=== PATIENT | female | born 1945 | race Caucasian/White ===

== ENCOUNTER 2019-08-22 11:52 | Outpatient (CLI) | payer MEDICARE, MEDICAID, SELFPAY ==
--- NOTE | 2019-08-22 | XR_ITS ---
WS: [id number] CHEST 2 VIEWS HISTORY: COUGH COMPARISON: 01/27/2019 Lungs: Hyperinflated lungs with changes of emphysema. Linear atelectasis in the RIGHT lower lung fiel d. Eventration of the RIGHT hemidiaphragm. Cardiac size: Mildly enlarged cardiac silhouette. Mediastinum/Aorta: Mild atherosclerosis aorta. Bones: Increase in thoracic kyphosis. Dorsal column stimulator electrodes and wires project over the mid thoracic spine. XR/XR chest 2V* [id number] IMPRESSION: 1. Chronic emphysema. 2. Subsegmental atelectasis RIGHT lower lobe. No pneumonia.
== END 2019-08-22 11:53 | disposition home or self-care (01) ==
LOC: RADOUTREAD 15:48
PROVIDERS: Family Provider Physician Assistant; PCP Physician Assistant; Visit Provider Physician Assistant
DX: J43.9 Emphysema, unspecified (principal); J98.11 Atelectasis; R05 Cough

== ENCOUNTER → 2019-09-30 14:59 | Outpatient (BNVA) | payer MEDICARE, MEDICAID, SELFPAY | PROVIDERS: PCP Physician Assistant; Visit Provider Anesthesiology | DX: G89.29 Other chronic pain (principal); M54.16 Radiculopathy, lumbar region; M79.651 Pain in right thigh; M79.652 Pain in left thigh; F17.220 Nicotine dependence, chewing tobacco, uncomplicated; Z79.891 Long term (current) use of opiate analgesic; Z71.6 Tobacco abuse counseling | CPT/HCPCS: 99214 ==

== ENCOUNTER → 2020-01-04 14:48 | Outpatient (BNVA) | payer MEDICARE, MEDICAID, SELFPAY | PROVIDERS: Family Provider Physician Assistant; PCP Physician Assistant; Visit Provider Nurse Practitioner | DX: M54.41 Lumbago with sciatica, right side (principal); M54.42 Lumbago with sciatica, left side; M54.16 Radiculopathy, lumbar region; F17.220 Nicotine dependence, chewing tobacco, uncomplicated; Z79.891 Long term (current) use of opiate analgesic | CPT/HCPCS: 99214 ==

== ENCOUNTER → 2020-01-18 14:20 | Outpatient (BNVA) | payer MEDICARE, MEDICAID, SELFPAY | PROVIDERS: Family Provider Physician Assistant; PCP Physician Assistant; Visit Provider Anesthesiology | DX: G89.29 Other chronic pain (principal); M54.16 Radiculopathy, lumbar region; M54.5 Low back pain; F17.220 Nicotine dependence, chewing tobacco, uncomplicated; Z79.891 Long term (current) use of opiate analgesic; Z71.6 Tobacco abuse counseling | CPT/HCPCS: 99214 ==

== ENCOUNTER 2020-02-23 12:37 | Outpatient (CLI) | payer MEDICARE, MEDICAID, SELFPAY ==
--- NOTE | 2020-02-23 12:45 | CT_ITS ---
WS: [id number] CT LUNG CANCER SCREENING DLP: 52.84 mGy.cm DIvol: 1.51 mGy CLINICAL INFORMATION SCREENING VISIT: Baseline COMPARISON: 07/14/2018 FINDINGS Diagnostic quality: Limited by body habitus. Comments: None. Lung Nodules: None. Lungs: Hyperexpanded lungs. Quality of examination No endobronchial lesions. Heart: Mild enlargement. Increased pericardial fat. Mild atherosclerosis platinum coronary arteries. Other findings: Marked enlargement of the pulmonary artery. Diameter of the pulmonary arteries 3.9 cm . Mild atherosclerosis aorta. Prior cholecystectomy. Dorsal column stimulator over the mid thoracic region. CT/CT lung screening [id number] IMPRESSION: LUNG-RADS: 1S-Negative with Significant Findings FOLLOW UP: 12 Month: Continue annual screening with LDCT 1. Dilated pulmonary artery consistent with pulmonary hypertension.
== END 2020-02-23 12:38 | disposition home or self-care (01) ==
LOC: RAD 12:44
PROVIDERS: PCP Physician Assistant; Visit Provider Physician Assistant
DX: Z12.2 Encounter for screening for malignant neoplasm of respiratory organs (principal); Z87.891 Personal history of nicotine dependence; I27.20 Pulmonary hypertension, unspecified
CPT/HCPCS: G0297

== ENCOUNTER 2020-03-19 16:12 | Inpatient (IN) | payer MEDICARE, MEDICAID, SELFPAY ==
[2020-03-19] VITALS (75 sets, daily range): BP systolic 85–164; BP diastolic 43–105; PULSE 46–66; RESP 11–104; TEMP 36.3–36.8; O2SAT 88–100; BMI 43.0
--- NOTE | 2020-03-19 16:18 | W.ED.OVERDOS ---
HPI - Overdose General: Chief Complaint: Overdose Stated Complaint: ACCIDENTAL OD Time Seen by Provider: 03/19/20 16:18 History of Present Illness: HPI Narrative: 74-year-old female well-known to me she had taken at least 4 if not potentially more hydrocodone earlier today because of pain in her legs she was having difficulty focusing was lethargic and EMS was called on their arrival to give her Narcan she became immediately awake and alert. On their arrival she had a decreased respiratory rate of around 8 and was very lethargic. She had a significant reversal as soon as the Narcan was given. She denies any pain now she denies any discomfort or shortness of breath. Has had multiple strokes in the past she is much more coherent than she has been at most of the times of seen her in the past as well. She denies any recent upper respiratory symptoms denies any dysuria urgency or frequency or abdominal pain. MD complaint: accidental overdose Onset (ago): hour(s) Timing confirmed by: caregiver Review of Systems Const: Denies: fever(s), chills, body aches, change in appetite, fatigue or malaise ENMT: Denies: throat pain, ear or mastoid pain, nasal discharge or nasal congestion Card: Denies: chest pain, edema, dyspnea on exertion or orthopnea Resp: Denies: dyspnea, productive cough or non-productive cough GI: Denies: abdominal pain, nausea, vomiting, hematemesis, coffee ground emesis, diarrhea, constipation, bloating, hematochezia or melena : Denies: flank pain, difficulty voiding, dysuria, urinary frequency or urinary urgency Skin/Breast: Denies: rash or pruritus PFSH ED PFSH: Medical History Carpal tunnel syndrome on both sides Chronic radicular low back pain COPD (chronic obstructive pulmonary disease) CVA (cerebral vascular accident) Depression with anxiety Diabetes Encounter for long-term use of opiate analgesic GERD (gastroesophageal reflux disease) History of CHF (congestive heart failure) History of GI bleed Hypertension Low back pain Opioid contract exists Smokeless tobacco use Surgical History H/O knee surgery History of knee replacement History of lumbar surgery Also history of spinal cord stimulator, currently not functioning History of shoulder surgery Family History Other CAD (coronary artery disease) Hypertension Stroke Denies family history of Anesthesia complication Bleeding disorder Social History Smoking and tobacco status: current every day smoker smokeless tobacco Alcohol intake: never Physical Exam Const: COMMON NORMALS: no acute distress GENERAL APPEARANCE: cooperative and comfortable ORIENTATION/CONSCIOUSNESS: Yes awake, Yes oriented to person, Yes oriented to place and Yes oriented to time HENMT: COMMON NORMALS: normocephalic, atraumatic and hearing grossly normal bilaterally HEAD & SCALP: normocephalic and atraumatic Eye: COMMON NORMALS: Equal, round and reactive pupils present, EOMs intact bilaterally, conjunctivae normal and no scleral icterus CONJUNCTIVA: Yes conjunctivae normal PUPIL: Yes Equal, round and reactive pupils present Neck/C-Spine: COMMON NORMALS: full ROM, no lymphadenopathy, supple and no JVD Lymph: LYMPHATIC: no lymphadenopathy noted and no lymphedema noted Resp: COMMON NORMALS: normal respiratory effort, No retractions, No use of accessory muscles and clear to auscultation bilaterally AUSCULTATION: clear to auscultation bilaterally Cardio: COMMON NORMALS: no JVD, regular rate, regular rhythm and No murmurs present (Cardio) RATE: regular rate RHYTHM: regular rhythm GI: COMMON NORMALS: Soft to palpation and No hepatosplenomegaly present AUSCULTATION: Yes normoactive bowel sounds PALPATION: Yes Soft to palpation, No Tenderness to palpation present (GI), No Guarding due to palpation present (GI) and Yes No hepatosplenomegaly present Extremity: COMMON NORMALS: normal to inspection, capillary refill normal, no clubbing, cyanosis or edema, no calf tenderness and no pedal edema Neuro: SENSORIUM/ORIENTATION: Yes oriented to person, Yes oriented to place and Yes oriented to time Skin: COMMON NORMALS: no rashes or lesions noted GENERAL SKIN EXAM: no rashes or lesions noted Course Vital Signs: Vital signs: Vital Signs Temperature 97.7 F 03/19/20 20:00 Pulse Rate 62 03/20/20 06:50 Respiratory Rate 18 03/20/20 06:50 Blood Pressure 140/56 03/20/20 06:50 Pulse Oximetry 94 03/20/20 06:50 MDM - Overdose MDM Narrative: Medical decision making narrative: On arrival patient is awake alert and oriented after receiving Narcan. While she was here she began to become sleepy but was not completely obtunded. Even after the Narcan seem to worn off she was still able to answer questions she was just somewhat groggy. Given were unsure of exactly how much she took or what she took I think we need to observe her here at least overnight in the ICU. She will also need a follow-up acetaminophen level discussed with Dr. Gunderson he is agreeable. Place her on observation in ICU. Lab Data: Labs: Lab Results 03/19/20 03/19/20 03/19/20 Range/Units 16:23 16:23 16:30 WBC 7.5 (4.0-10.0) 10^3/ uL RBC 5.34 H (4.1-5.3) 10^6/u L Hgb 14.1 (11.5-15.3) g/dL Hct 47.7 H (37.0-47.0) % MCV 89.3 (81-99) fL MCH 26.4 L (28.0-34.0) pg MCHC 29.6 L (30.0-36.0) g/dL RDW 15.3 H (12.1-15.1) % Plt Count 262 (130-400) 10^3/c mm MPV 10.0 (7.4-10.4) fL Neut % (Auto) 49.0 % Lymph % (Auto) 34.0 % [place] % (Auto) 11.0 % Eos % (Auto) 4.4 % Baso % (Auto) 0.9 % Neut # (Auto) 3.69 (1.8-7.7) 10^3/u L Lymph # (Auto) 2.6 (0.8-4.8) 10^3/u L [place] # (Auto) 0.8 (0.2-0.9) 10^3/u L Eos # (Auto) 0.3 (0.0-0.8) 10^3/u L Baso # (Auto) 0.1 (0.0-0.1) 10^3/u L Nucleated RBC % (a uto) 0 % Nucleated RBCs # 0.0 /100WBC Sodium 137 (136-145) mmol/L Potassium 4.0 (3.5-5.1) mmol/L Chloride 95 L (98-107) mmol/L Carbon Dioxide 33 H (22-29) mmol/L Anion Gap 13.0 (5-19) BUN 23 (8-23) mg/dL Creatinine 0.9 (0.5-0.9) mg/dL GFR Calculation Not Reportable Glucose 169 H (65-115) mg/dL POC Glucose (70-110) mg/dL Calculated Osmolal ity 285 (285-295) mOsm/k g Calcium 9.7 (8.5-10.5) mg/dL Total Bilirubin 0.6 (0.15-1.2) mg/dL AST 14 (0-32) U/L ALT 17 (0-33) U/L Alkaline Phosphata se 86 (35-105) IU/L Total Protein 7.2 (6.6-8.7) g/dL Albumin 4.0 (3.5-5.2) g/dL Globulin 3.2 (1.3-4.6) g/dL Urine Color Straw (Yellow) Urine Appearance Clear (CLEAR) Urine pH 5 (5-7) Ur Specific Gravit y 1.010 (1.005-1.030) Urine Protein Neg (Negative) Urine Glucose (UA) 4+ H (Normal) Urine Ketones Negative (Negative) Urine Blood Neg (Negative) Urine Nitrate Negative (Negative) Urine Bilirubin Neg (NEGATIVE) Urine Urobilinogen Norm (Negative) mg/dL Ur Leukocyte Pamela ase Negative (Negative) Salicylates < 0.3 L (3-10) mg/dL Urine Opiates Scre en (Negative) ng/mL Acetaminophen 7.8 L (10-30) ug/mL Ur Barbiturates Sc reen (Negative) ng/mL Ur Phencyclidine S crn (Negative) ng/mL Ur Amphetamines Sc reen (Negative) ng/mL U Benzodiazepines Scrn (Negative) ng/mL Urine Cocaine Scre en (Negative) ng/mL U Marijuana (THC) Screen (Negative) ng/mL Ethyl Alcohol < 10 (0-10) mg/dL 03/19/20 03/19/20 Range/Units 16:30 16:30 WBC (4.0-10.0) 10^3/ uL RBC (4.1-5.3) 10^6/u L Hgb (11.5-15.3) g/dL Hct (37.0-47.0) % MCV (81-99) fL MCH (28.0-34.0) pg MCHC (30.0-36.0) g/dL RDW (12.1-15.1) % Plt Count (130-400) 10^3/c mm MPV (7.4-10.4) fL Neut % (Auto) % Lymph % (Auto) % [place] % (Auto) % Eos % (Auto) % Baso % (Auto) % Neut # (Auto) (1.8-7.7) 10^3/u L Lymph # (Auto) (0.8-4.8) 10^3/u L [place] # (Auto) (0.2-0.9) 10^3/u L Eos # (Auto) (0.0-0.8) 10^3/u L Baso # (Auto) (0.0-0.1) 10^3/u L Nucleated RBC % (a uto) % Nucleated RBCs # /100WBC Sodium (136-145) mmol/L Potassium (3.5-5.1) mmol/L Chloride (98-107) mmol/L Carbon Dioxide (22-29) mmol/L Anion Gap (5-19) BUN (8-23) mg/dL Creatinine (0.5-0.9) mg/dL GFR Calculation Glucose (65-115) mg/dL POC Glucose 154 (70-110) mg/dL Calculated Osmolal ity (285-295) mOsm/k g Calcium (8.5-10.5) mg/dL Total Bilirubin (0.15-1.2) mg/dL AST (0-32) U/L ALT (0-33) U/L Alkaline Phosphata se (35-105) IU/L Total Protein (6.6-8.7) g/dL Albumin (3.5-5.2) g/dL Globulin (1.3-4.6) g/dL Urine Color (Yellow) Urine Appearance (CLEAR) Urine pH (5-7) Ur Specific Gravit y (1.005-1.030) Urine Protein (Negative) Urine Glucose (UA) (Normal) Urine Ketones (Negative) Urine Blood (Negative) Urine Nitrate (Negative) Urine Bilirubin (NEGATIVE) Urine Urobilinogen (Negative) mg/dL Ur Leukocyte Pamela ase (Negative) Salicylates (3-10) mg/dL Urine Opiates Scre en Positive H (Negative) ng/mL Acetaminophen (10-30) ug/mL Ur Barbiturates Sc reen Negative (Negative) ng/mL Ur Phencyclidine S crn Negative (Negative) ng/mL Ur Amphetamines Sc reen Negative (Negative) ng/mL U Benzodiazepines Scrn Negative (Negative) ng/mL Urine Cocaine Scre en Negative (Negative) ng/mL U Marijuana (THC) Screen Negative (Negative) ng/mL Ethyl Alcohol (0-10) mg/dL Discharge Plan Discharge Patient Disposition: Placed in Observation Admit Provider: John Rowe Clinical Impression: Opiate overdose, COPD (chronic obstructive pulmonary disease), History of cerebrovascular accident Condition: Serious Interventions: ED Discharge Assessment Last Done: 03/19/20 18:38 ED Charges Last Done: 03/19/20 18:38 Discharge Date/Time: 03/19/20 18:42 Coding Level of Care Code ED Certified Coatings Inspector for Chg Fwd Exam Comprehensive
--- NOTE | 2020-03-19 16:22 | XR_ITS ---
WS: [id number] EXAM: AP CHEST: PORTABLE UPRIGHT DATE OF EXAM: 03/19/2020, 1627 hours COMPARISON: Chest x-ray from 08/22/2019 HISTORY: Patient is 74 years old with hypoxia. FINDINGS: The cardiac silhouette is enlarged but similar. The mediastinal contours are unchanged. Calcified plaque in the aortic knob. The pulmonary vascularity is normal. Slight chronic lung changes seen. Lungs are clear consolidation. There is no effusion or pneumothorax. No acute bony abnormality is s een. Neurostimulator leads are seen overlying the spine. XR/XR chest 1V portable [id number] IMPRESSION: Enlarged cardiac silhouette appears similar. Pulmonary vascular congestion with out pulmonary edema. No consolidating infiltrate.
--- NOTE | 2020-03-19 16:24 | ECG_ITS ---
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 Measurements Intervals [place] Rate: 55 P: 104 [place]: 229 QRS: 1 QRSD: 120 T: 91 QT: 483 QTc: 463 Interpretive Statements SINUS BRADYCARDIA WITH FIRST DEGREE AV BLOCK MODERATE INTRAVENTRICULAR CONDUCTION DELAY [105+ ms QRS DURATION, 80+ ms Q/S IN V1/V2, NO Q AND 60+ ms R IN I/aVL/V5/V6] NONSPECIFIC T-WAVE ABNORMALITY PROLONGED QT INTERVAL Compared to ECG 08/19/2018 18:08:27 Prolonged QT interval now present Sinus rhythm no longer present T-wave abnormality still present Electronically Signed On 03-19-2020 18:59:42 CDT by Stacey Muñoz M.D. [id number] f
--- NOTE | 2020-03-19 16:27 | PC.NURSE ---
Clothing removed. Soiled diaper found. Patient placed in gown. Nurse resident at [facility] for urine collection
[2020-03-19 16:34] LABS: Glucose Point of Care 154 mg/dL (70-110)
--- NOTE | 2020-03-19 16:34 | PC.NURSE ---
XR performed at bedside
[2020-03-19 16:36] LABS: Basophils # 0.1 10^3/uL (0.0-0.1); Basophils % 0.9 %; Eosinophils # 0.3 10^3/uL (0.0-0.8); Eosinophils % 4.4 %; Hematocrit 47.7 % (37.0-47.0); Hemoglobin 14.1 g/dL (11.5-15.3); Lymphocytes # 2.6 10^3/uL (0.8-4.8); Mean Corpuscular HGB Conc 29.6 g/dL (30.0-36.0); Mean Corpuscular Hemoglobin 26.4 pg (28.0-34.0); Mean Corpuscular Volume 89.3 fL (81-99); Monocytes # 0.8 10^3/uL (0.2-0.9); Neutrophils # 3.69 10^3/uL (1.8-7.7); Nucleated Red Blood Cells % 0 %; Platelet Count 262 10^3/cmm (130-400); Red Blood Count 5.34 10^6/uL (4.1-5.3); Red Cell Distribution Width 15.3 % (12.1-15.1); White Blood Count 7.5 10^3/uL (4.0-10.0)
[2020-03-19 16:41] LABS: Add Urine Microscopic? NO
[2020-03-19 16:48] LABS: Bilirubin Urine Neg (NEGATIVE); Blood Urine Neg (Negative); Glucose Urine UA 4+ (Normal); Ketones Urine Negative (Negative); Leukocyte Esterase Urine Negative (Negative); Nitrate Urine Negative (Negative); Protein Urine Neg (Negative); Urine Appearance Clear (CLEAR); Urine Color Straw (Yellow); Urobilinogen Urine Norm (Negative); pH Urine 5 (5-7)
[2020-03-19 16:56] LABS: Amphetamines Screen Urine Negative (Negative); Barbiturates Screen Urine Negative (Negative); Benzodiazepines Screen Urine Negative (Negative); Cocaine Screen Urine Negative (Negative); Opiate Screen Urine Positive (Negative); PCP Screen Urine Negative (Negative); THC Screen Urine Negative (Negative)
[2020-03-19 16:56] LABS: Acetaminophen 7.8 ug/mL (10-30); Alanine Aminotransferase 17 U/L (0-33); Alkaline Phosphatase 86 IU/L (35-105); Aspartate Amino Transferase 14 U/L (0-32); Blood Urea Nitrogen 23 mg/dL (8-23); Calcium 9.7 mg/dL (8.5-10.5); Carbon Dioxide 33 mmol/L (22-29); Chloride 95 mmol/L (98-107); Globulin 3.2 g/dL (1.3-4.6); Glucose 169 mg/dL (65-115); Osmolality Calculated 285 mOsm/kg (285-295); Sodium 137 mmol/L (136-145); Total Bilirubin 0.6 mg/dL (0.15-1.2); Total Protein 7.2 g/dL (6.6-8.7)
[2020-03-19 17:04] LABS: Alcohol Level < 10 mg/dL (0-10); Salicylate < 0.3 mg/dL (3-10)
--- NOTE | 2020-03-19 17:25 | PC.NURSE ---
Pt and daughter updated on pt lab results. Pt daughter wanting to know plan of care, Dr Spencer notified.
--- NOTE | 2020-03-19 17:49 | PC.NURSE ---
Dr Rowe at bedside
--- NOTE | 2020-03-19 18:01 | P.HP_ITS ---
Providers/Chief Complaint Primary Care Provider: Nazia Jha Chief Complaint: ACCIDENTAL OD History of Present Illness Lauren Jose is a 74 year old female presenting to the emergency department with decreased responsiveness. Patient is somewhat somnolent when I visit with her, but according to the ER notes, ER physician she was found by ambulance services after taking at least 4 hydrocodone secondary to pain. Her respiratory rate was low. She received Narcan and became appropriately responsive. Apparently in the ER she has become somewhat more somnolent but is keeping her saturation up on minimal oxygen. When I wake the patient she denies any suicidal attempt. She reports she was in pain from her back. Daughter is present in the room and denies previous admission for overdose. Patient denies any chest pain currently. No history of COVID, exposure to anybody with COVID, or upper respiratory symptoms. No history of fall or trauma. Review of Systems General: Reports: 10 or more systems reviewed and unremarkable except in HPI and below Const: Reports: fatigue and malaise Eyes: Denies: change in vision ENMT: Denies: throat pain Card: Denies: chest pain Resp: Denies: dyspnea GI: Denies: abdominal pain : Denies: flank pain Musc: Reports: back pain Skin/Breast: Denies: rash Neuro: Reports: other (Sleepiness, lethargy) Psych: Denies: anxiety Endo: Denies: polyuria [place]/Lymph: Denies: easy bruising All/Imm: Denies: urticaria Medications/Allergies Home Medications Medication Instructions Recorded Confirmed Last Taken Type atorvastatin 20 mg tablet 20 mg PO DAILY 09/30/19 03/19/20 03/19/20 History canagliflozin 300 mg tablet 300 mg PO QAM 09/30/19 03/19/20 03/19/20 History carvedilol 6.25 mg tablet 12.5 mg PO BID tab 09/30/19 03/19/20 03/19/20 History clopidogrel 75 mg tablet 75 mg PO DAILY 09/30/19 03/19/20 03/19/20 History cyclobenzaprine 10 mg tablet 10 mg PO TID PRN 09/30/19 03/19/20 03/18/20 History furosemide 80 mg tablet 80 mg PO DAILY 09/30/19 03/19/20 03/19/20 History hydroxyzine HCl 25 mg tablet 25 mg PO BID PRN 09/30/19 03/19/20 03/19/20 History trazodone 150 mg tablet 150 mg PO .BEDTIME PRN tab 09/30/19 03/19/20 03/18/20 H istory hydrocodone 7.5 mg-acetaminophen 1 tab PO .6 times a day PRN 30 01/18/20 03/19/20 03/19/20 Rx 325 mg tablet Days #180 tab pregabalin 200 mg capsule 200 mg PO TID 30 Days #90 cap 03/14/20 03/19/20 03/19/20 Rx buspirone 15 mg PO BID 03/19/20 03/19/20 03/19/20 History duloxetine 60 mg PO DAILY 03/19/20 03/19/20 03/19/20 History esomeprazole magnesium 40 mg PO DAILY 03/19/20 03/19/20 03/19/20 History lisinopril 2.5 mg PO DAILY 03/19/20 03/19/20 03/19/20 History sitagliptin [Januvia] 100 mg PO DAILY 03/19/20 03/19/20 03/18/20 History Allergies Allergy/AdvReac Type Severity Reaction Status Date / Time No Known Allergies Allergy Verified 03/19/20 17:52 PFSH Acute PFSH: Medical History Carpal tunnel syndrome on both sides Chronic radicular low back pain COPD (chronic obstructive pulmonary disease) CVA (cerebral vascular accident) Depression with anxiety Diabetes Encounter for long-term use of opiate analgesic GERD (gastroesophageal reflux disease) History of CHF (congestive heart failure) History of GI bleed Hypertension Low back pain Opioid contract exists Smokeless tobacco use Surgical History (Updated 03/19/20 @ 18:07 by John Rowe MD) H/O knee surgery History of knee replacement History of lumbar surgery Also history of spinal cord stimulator, currently not functioning History of shoulder surgery Family History Other CAD (coronary artery disease) Hypertension Stroke Denies family history of Anesthesia complication Bleeding disorder Social History (Updated 03/19/20 @ 18:08 by John Rowe MD) Smoking and tobacco status: current every day smoker smokeless tobacco Alcohol intake: never Vitals/I&O/Wt Last Vital Signs Temp 98.3 F 03/19/20 16:19 Pulse 56 L 03/19/20 18:00 Resp 14 03/19/20 18:00 BP 95/60 03/19/20 18:00 Pulse Ox 96 03/19/20 18:00 Weight last 48 hrs Weight 99.79 kg Physical Exam Narrative: EXAM NARRATIVE: General exam is a sleepy white female, no apparent distress HEENT: Pupils equally round. Oropharynx clear. Neck is supple, obese, no lymphadenopathy Cardiovascular regular rate and rhythm without murmur, no S3 or S4 Lungs are clear. Diminished breath sounds is noted bilaterally. No crackles Abdomen is soft, obese, nontender was deferred Extremities no cyanosis clubbing. Trace edema Neuro, no focal deficits, somnolent Skin no rash Data : 03/19/20 16:23 03/19/20 16:23 Other data: Urine negative. LFTs normal. Salicylates 0.3. Acetaminophen level 7.8. Urine drug screen positive for opiates. Ethyl alcohol level negative. Chest x-ray no infiltrate. EKG with sinus rhythm, left axis deviation, poor R wave progression, QTC of 463 showing slight prolongation of QT interval A&P Assessment and plan (1) Overdose: Presentation is consistent with overdose of narcotic. She had good res ponse to Narcan. Observation to the ICU Close monitoring for any decompensation in respiratory status Check ABG Oxygen as needed Repeat dose of Narcan if needed Avoid any sedating medication Cautious hydration From history this is unintentional. Will discuss with her again if she becomes more alert Fall precautions Repeat Tylenol level 4 hours from initial Neurologic checks Status: Acute (2) Hypotension: Secondary to unintentional overdose Cautious hydration Hold blood pressure medication Status: Acute Additional A&P Information History of CVA. Resume her Plavix, statin tomorrow when she is able to take this safely. Chronic back pain on chronic narcotics. Holding narcotics and muscle relaxants currently as she is significantly sedated Hypertension. Holding blood pressure medicine secondary to low blood pressure Type 2 diabetes. Sliding scale insulin History of CHF. Hold Lasix, beta-yokasta, ANA LAURA inhibitor secondary to hypotension Multiple other medical problems as outlined in past medical history Full code Lovenox for DVT prophylaxis Attestations Medical Necessity Statement*: Will need less than 2 midnight stay for evaluation of narcotic overdose, unintentional Time Spent in Patient Care: Greater than 35 minutes Coding Level of Care Code Acute Circulation Assistant for Chg Fwd Diagnoses Overdose T50.901A Hypotension I95.9
--- NOTE | 2020-03-19 18:05 | PC.NURSE ---
Pt daughter left and took pt home medications with her.
[2020-03-19 18:40] LABS: Arterial Blood Gas Hematocrit 45.3 % (37-47); Base Excess ABG 4.6 mmol/L (-2.0-2.0); Blood Gas Allen Test Pos; Blood Gas Operator Identificat ED; Blood Gas Sample Site Radial, right; Blood Gas Sample Type Arterial; Carboxyhemoglobin 1.3 %THgb (0.4-20.1); HCO3 ABG 36.4 mmol/L (22-26); HGB O2 Sat 94.3 % (95-100); Ionized Calcium Level - ABG 1.3 mmol/L (1.1-1.4); Methemoglobin 0.9 % (0.4-1.5); Oxygen Device NC; Oxygen Saturation ABG 96.4; PO2 ABG 98.4 mmHg (80.0-100.0); Potassium Level - ABG 4.3 mmol/L (3.5-5.0); Total Hemoglobin 14.8 g/dL (12-16)
[2020-03-19 18:42] LABS: ABG PCO2 93.4 mmHg (35-45)
[2020-03-19 19:15] LABS: Acetaminophen < 5.0 ug/mL (10-30)
[2020-03-19] MEDS: sodium chloride 0.9% 1,000 ML 50 ML IV (19:51)
[2020-03-19] MEDS: enoxaparin 40 mg/0.4 mL Syringe SUBCUT (19:52)
[2020-03-19] MEDS: naloxone 0.4 mg/ml SDV 0.1 MG IVP ×3 (19:56→22:15)
[2020-03-19 21:09] LABS: ABG PH Result 7.26 (7.35-7.45); Arterial Blood Gas Hematocrit 45.6 % (37-47); Base Excess ABG 5.1 mmol/L (-2.0-2.0); Blood Gas Allen Test Pos; Blood Gas Operator Identificat JB; Blood Gas Sample Site Radial, right; Blood Gas Sample Type Arterial; HCO3 ABG 35.4 mmol/L (22-26); Oxygen Device BIPAP
[2020-03-19 21:11] LABS: ABG PCO2 79.4 mmHg (35-45)
[2020-03-19 22:21] LABS: Glucose Point of Care 188 mg/dL (70-110)
[2020-03-20] VITALS (110 sets, daily range): BP systolic 84–165; BP diastolic 53–117; PULSE 52–80; RESP 12–25; TEMP 36.5–37.1; O2SAT 83–98
[2020-03-20] MEDS: naloxone 0.4 mg/ml SDV 0.1 MG IVP (00:40)
[2020-03-20] MEDS: naloxone 2 MG in sodium chloride 0.9% (100 ml) 100 ML 10.2 MG IV ×2 (00:59→11:01)
[2020-03-20] MEDS: ipratropium-albuterol 3 mL Neb INHALATION ×3 (02:56→20:45)
[2020-03-20 04:08] LABS: Basophils # 0.1 10^3/uL (0.0-0.1); Basophils % 0.9 %; Eosinophils # 0.2 10^3/uL (0.0-0.8); Eosinophils % 2.3 %; Hematocrit 47.2 % (37.0-47.0); Hemoglobin 13.9 g/dL (11.5-15.3); Lymphocytes # 1.9 10^3/uL (0.8-4.8); Lymphocytes % 24.5 %; Mean Corpuscular HGB Conc 29.4 g/dL (30.0-36.0); Mean Corpuscular Hemoglobin 26.3 pg (28.0-34.0); Mean Corpuscular Volume 89.2 fL (81-99); Monocytes # 0.7 10^3/uL (0.2-0.9); Monocytes % 8.9 %; Neutrophils # 4.87 10^3/uL (1.8-7.7); Neutrophils % 62.8 %; Nucleated Red Blood Cells % 0 %; Platelet Count 279 10^3/cmm (130-400); Red Blood Count 5.29 10^6/uL (4.1-5.3); Red Cell Distribution Width 15.6 % (12.1-15.1); White Blood Count 7.8 10^3/uL (4.0-10.0)
[2020-03-20 04:37] LABS: Alanine Aminotransferase 16 U/L (0-33); Albumin Level 4.2 g/dL (3.5-5.2); Alkaline Phosphatase 97 IU/L (35-105); Anion Gap 11.6 (5-19); Aspartate Amino Transferase 13 U/L (0-32); Blood Urea Nitrogen 27 mg/dL (8-23); Calcium 9.6 mg/dL (8.5-10.5); Carbon Dioxide 37 mmol/L (22-29); Chloride 97 mmol/L (98-107); Globulin 3.3 g/dL (1.3-4.6); Glucose 172 mg/dL (65-115); Osmolality Calculated 293 mOsm/kg (285-295); Potassium 4.6 mmol/L (3.5-5.1); Sodium 141 mmol/L (136-145); Total Bilirubin 0.6 mg/dL (0.15-1.2); Total Protein 7.5 g/dL (6.6-8.7)
--- NOTE | 2020-03-20 09:19 | PM.PN ---
Subjective Subjective: Interval history: Lauren is on BiPAP this morning. She can answer a few questions. She still seems sleepy. She was placed on a Narcan drip last night as well Medications: Reviewed: Yes Vitals/I&O/Wt Last Vital Signs Temp 97.7 F 03/19/20 20:00 Pulse 65 03/20/20 08:09 Resp 21 H 03/20/20 08:08 BP 140/56 03/20/20 06:50 Pulse Ox 96 03/20/20 08:09 03/19/20 03/20/20 03/20/20 22:59 06:59 14:59 Intake Total 569 / 569 Output Total 750 / 750 1500 / 2250 Balance -750 / -750 -931 / -1681 Weight last 48 hrs Weight 99.79 kg Physical Exam Narrative: EXAM NARRATIVE: General exam no apparent distress, although still appears sleepy Cardiovascular regular rate and rhythm, no murmur Lungs clear but with diminished breath sounds bilaterally Abdomen is soft with positive bowel sounds Extremities no cyanosis clubbing or edema Urinary Catheter Management^: Dumont: Cath Placed During This Visit: yes Urinary Catheter Date of Insertion: 03/19/20 Urinary Catheter Time of Insertion: 20:10 Data : 03/20/20 03:35 03/20/20 03:35 A&P Assessment and plan (1) Overdose: Presentation is consistent with overdose of narcotic. She had good response to Narcan. She is still significantly sleepy this morning, and required initiation of a Narcan drip last night as well as BiPAP We will try to wean her BiPAP off through today as well as discontinue her Narcan drip Likely she will need to stay for continued monitoring until tomorrow, but I will make this determination later today Avoid any sedating medication From history this is unintentional. Will discuss with her again if she becomes more alert Fall precautions Repeat Tylenol level 4 hours from initial Neurologic checks Status: Acute (2) Hypotension: Secondary to unintentional overdose Now appears resolved Hold blood pressure medication Status: Acute Additional A&P Information History of CVA. Resume home medicines of Plavix and statin Chronic back pain on chronic narcotics. Holding narcotics and muscle relaxants currently as she is significantly sedated Hypertension. Holding blood pressure medicine secondary to low blood pressure Type 2 diabetes. Sliding scale insulin History of CHF. Hold Lasix, beta-yokasta, ANA LAURA inhibitor secondary to hypotension Multiple other medical problems as outlined in past medical history Full code Lovenox for DVT prophylaxis Will determine transfer out of ICU, discharge home, continued ICU care depending upon clinical course throughout this morning and early afternoon. Attestations Medical Necessity Statement*: At this point may need continued hospital stay regarding unintentional narcotic overdose depending upon clinical course today. Critical Care Time: 31 minutes of ICU care at bedside reviewing the patient's clinical status, course, examination. Significant risk of deterioration secondary to a need for BiPAP as well as Narcan drip currently. Coding Level of Care Code Acute It Consulting Director for [facility] Fwd Diagnoses Overdose T50.901A Hypotension I95.9
[2020-03-20 12:50] LABS: Glucose Point of Care 136 mg/dL (70-110)
[2020-03-20] MEDS: clopidogrel 75 mg Tablet PO (13:56)
[2020-03-20] MEDS: atorvastatin 40 mg Tablet 20 MG PO (13:56)
--- NOTE | 2020-03-20 13:58 | PC.NURSE ---
1335 Patient awake and pulling at bipap mask, got it off her nose, appearing to be more awake than all morning. I completely removed bipap and placed on 2l n/c. Encouraged patient to breath in through nose and she did. Keeping O2 Sat above 90%. 1400 Patient taking sips of water well. Gave am meds po and tolerated well. No complaints.
[2020-03-20 17:25] LABS: Glucose Point of Care 133 mg/dL (70-110)
[2020-03-20 18:52] LABS: Glucose Point of Care 152 mg/dL (70-110)
--- NOTE | 2020-03-20 18:55 | PC.NURSE ---
Received bedside report on patient from Keerthi Carrasco RN. Assumed care at this time.
[2020-03-20] MEDS: enoxaparin 40 mg/0.4 mL Syringe SUBCUT (19:38)
[2020-03-20 21:18] LABS: Glucose Point of Care 147 mg/dL (70-110)
[2020-03-21] VITALS (22 sets, daily range): BP systolic 129–207; BP diastolic 59–110; PULSE 47–82; RESP 14–25; TEMP 36.8–37.4; O2SAT 88–97
[2020-03-21 03:32] LABS: Basophils # 0.1 10^3/uL (0.0-0.1); Basophils % 0.6 %; Eosinophils # 0.1 10^3/uL (0.0-0.8); Eosinophils % 1.5 %; Hematocrit 44.4 % (37.0-47.0); Hemoglobin 13.3 g/dL (11.5-15.3); Lymphocytes # 1.5 10^3/uL (0.8-4.8); Lymphocytes % 16.5 %; Mean Corpuscular Hemoglobin 26.8 pg (28.0-34.0); Mean Corpuscular Volume 89.5 fL (81-99); Mean Platelet Volume 10.3 fL (7.4-10.4); Monocytes # 0.8 10^3/uL (0.2-0.9); Monocytes % 8.5 %; Neutrophils # 6.41 10^3/uL (1.8-7.7); Neutrophils % 72.4 %; Nucleated Red Blood Cells % 0 %; Platelet Count 242 10^3/cmm (130-400); Red Blood Count 4.96 10^6/uL (4.1-5.3); Red Cell Distribution Width 15.6 % (12.1-15.1); White Blood Count 8.8 10^3/uL (4.0-10.0)
[2020-03-21 04:25] LABS: Alanine Aminotransferase 14 U/L (0-33); Albumin Level 3.9 g/dL (3.5-5.2); Alkaline Phosphatase 88 IU/L (35-105); Anion Gap 13.3 (5-19); Aspartate Amino Transferase 12 U/L (0-32); Blood Urea Nitrogen 24 mg/dL (8-23); Calcium 9.7 mg/dL (8.5-10.5); Carbon Dioxide 33 mmol/L (22-29); Chloride 100 mmol/L (98-107); Globulin 3.3 g/dL (1.3-4.6); Glucose 176 mg/dL (65-115); Osmolality Calculated 295 mOsm/kg (285-295); Potassium 4.3 mmol/L (3.5-5.1); Sodium 142 mmol/L (136-145); Total Bilirubin 0.8 mg/dL (0.15-1.2); Total Protein 7.2 g/dL (6.6-8.7)
[2020-03-21 08:02] LABS: Glucose Point of Care 144 mg/dL (70-110)
[2020-03-21 12:29] LABS: Glucose Point of Care 162 mg/dL (70-110)
[2020-03-21] MEDS: atorvastatin 40 mg Tablet 20 MG PO (12:37)
[2020-03-21] MEDS: clopidogrel 75 mg Tablet PO (12:38)
--- NOTE | 2020-03-21 14:03 | PC.NURSE ---
Pt up to chair eating lunch. Able to keep down clear liquid diet without any evidence of upset. Pt seems to be confused on why she has been admitted into the hospital. BP running 160-170 systolic and 90-110 diastolic over the last few hours this AM. When doing an initial assessment over pt, BP running 220/90 by NIBP. Manual BP's were taken to ensure those numbers were accurate. Manual showing 215/100, and 206/99. MD notified, and verbal orders of BP medications to be resumed. Pt placed back to bed to rest.
[2020-03-21] MEDS: lisinopril 2.5 mg Tablet PO (14:20)
[2020-03-21] MEDS: hyDRALAzine 20 mg/mL INJ 1 mL 10 MG IVP (14:20)
--- NOTE | 2020-03-21 14:20 | P.PN_ITS ---
Subjective Subjective: Interval history: Lauren is more awake this morning. She is conversant. She reports she has a nonfunctional CPAP at night. Medications: Reviewed: Yes Vitals/I&O/Wt Last Vital Signs Temp 99.4 F 03/21/20 08:00 Pulse 67 03/21/20 12:00 Resp 14 03/21/20 12:00 BP 173/93 03/21/20 12:00 Pulse Ox 88 L 03/21/20 12:00 03/20/20 03/21/20 03/21/20 22:59 06:59 14:59 Intake Total 289.98 / 941.98 240 / 1181.98 950 / 950 Output Total 800 / 800 1000 / 1800 700 / 700 Balance -510.02 / 141.98 -760 / -618.02 250 / 250 Weight last 48 hrs Weight 99.79 kg Physical Exam Narrative: EXAM NARRATIVE: General exam no apparent distress, although still appears sleepy Cardiovascular regular rate and rhythm, no murmur Lungs clear but with diminished breath sounds bilaterally Abdomen is soft with positive bowel sounds Extremities no cyanosis clubbing or edema Urinary Catheter Management^: Dumont: Cath Placed During This Visit: yes Reason for Continuing Indwelling Catheter: Assist Healing of Perineal & Sacral Wounds- Incontinent Patients Urinary Catheter Date of Insertion: 03/19/20 Urinary Catheter Time of Insertion: 20:10 Data : 03/21/20 03:05 03/21/20 03:05 A&P Assessment and plan (1) Overdose: Presentation is consistent with overdose of narcotic. She had good response to Narcan. She required a Narcan drip while in the hospital, that has been weaned off. She required AVAPS during her hospital stay. She had CPAP at home. Even after narcotic effects have worn off, it is very apparent she has COPD and evidence for chronic CO2 retention. Likely obesity hypoventilation also plays a role. While in the hospital even after narcotic effect wore out she required AVAPS to prevent severe lethargy secondary to CO2 retention. She will need trilogy at home to prevent repeated hospital stays with CO2 narcosis. Status: Acute (2) Hypotension: Secondary to unintentional overdose Now resolved. Restart blood pressure medication Status: Acute Additional A&P Information History of CVA. Resume home medicines of Plavix and statin Chronic back pain on chronic narcotics. Holding narcotics and muscle relaxants currently as she is significantly sedated Hypertension. We will reinitiate her home blood pressure medication. Type 2 diabetes. Sliding scale insulin History of CHF. Hold Lasix, beta-yokasta, ANA LAURA inhibitor secondary to hypotension Multiple other medical problems as outlined in past medical history Full code Attestations Medical Necessity Statement*: Possible discharge today depending if trilogy can be arranged for at home. 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
--- NOTE | 2020-03-21 14:44 | PC.NURSE ---
Urinary Catheter removed. 9mL pulled from balloon. Catheter tip intact. Pt tolerated removal well.
[2020-03-21] MEDS: carvedilol 12.5 mg Tablet PO ×2 (14:47→23:07)
--- NOTE | 2020-03-21 15:57 | PC.RESP ---
SMOKING CESSATION AND PULMONARY REHAB INFORMATION SENT TO PATIENT.
[2020-03-21] MEDS: nystatin cream 30 gm 1 APPLIC TOPICAL (16:47)
--- NOTE | 2020-03-21 17:34 | PC.NURSE ---
up to wheel chair with max assist. eating dinner.
[2020-03-21 17:35] LABS: Glucose Point of Care 150 mg/dL (70-110)
--- NOTE | 2020-03-21 17:35 | PC.NURSE ---
1700 had a huge b.m., formed and liquid
--- NOTE | 2020-03-21 18:20 | PC.NURSE ---
transferred to 2 so
[2020-03-21 21:57] LABS: Glucose Point of Care 152 mg/dL (70-110)
[2020-03-21] MEDS: ipratropium-albuterol 3 mL Neb INHALATION (22:45)
[2020-03-21] MEDS: enoxaparin 40 mg/0.4 mL Syringe SUBCUT (23:06)
[2020-03-22] VITALS (7 sets, daily range): BP systolic 166–184; BP diastolic 67–76; PULSE 53–64; RESP 16–24; TEMP 36.5–37.2; O2SAT 96–98
[2020-03-22 07:24] LABS: Glucose Point of Care 134 mg/dL (70-110)
[2020-03-22] MEDS: carvedilol 3.125 mg Tablet PO (09:03)
[2020-03-22] MEDS: clopidogrel 75 mg Tablet PO (09:03)
[2020-03-22] MEDS: atorvastatin 40 mg Tablet 20 MG PO (09:04)
[2020-03-22] MEDS: ipratropium-albuterol 3 mL Neb INHALATION (09:10)
[2020-03-22] MEDS: lisinopril 10 mg Tablet PO (09:26)
[2020-03-22 10:58] LABS: Glucose Point of Care 169 mg/dL (70-110)
--- NOTE | 2020-03-22 13:53 | PC.CHAP ---
Pastoral Care Encounter/Spiritual Assessment Type of Contact [] Declined mandrel puller visit [] Patient/Family/Request visit [] Outpatient visit [] Follow-up visit [] Physician referral [] Code/Alert [x] Routine visit [] Staff referral [] Actively dying [] Patient sleeping [] Family support [] [] Out of room [] Palliative care [] [] Receiving care in room [] Pre-surgical visit [] Trauma [] Long length of stay [] ICU visit [] Other: Relational/Emotional Strength [x] Patient feels connected with others/family/visitors/staff [] Distress [] Loneliness/isolation [] Abandonment Spirituality of Patient [x] Person of Maria E [x] Attends Sikhism of their Maria E [x] Believes in Prayer [] Reads Bible or Shinto materials [] There are Spiritual issues to be addressed Upsetter Interventions [x] Prayer [x] Active listening [x] Non-anxious presence [x] Spiritual/emotional support [] Crisis/trauma care [x] Spiritual counseling [] Bereavement support [] Provided bereavement packet [] Provided Bible/devotional materials [] Provided toy/stuffed animal, coloring book to patient or family member [] Provided Communion [] Anointing/Lena [] Salvation [x] Completed spiritual assessment [] Other: Impact on Illness or Injury [] Angry [] Fearful [] Anxious [] Often cries [] Exhaustion [] Unable to work [] Unable to attend adventism [] Unable to walk/stand [] Unable to read [] Unable to drive [] Unable to eat/drink [] Unable to sleep [] Unable to be with family [] Patient intubated [] Other: Summary Patient professed her maria e in [place] as her Lord. Time spent with patient 10 minutes
--- NOTE | 2020-03-22 16:21 | PM.DCS ---
Discharge Providers Date of Admission: 03/20/20 11:23 Date of Discharge: March 22, 2020 Attending Provider at Admission: John Rowe MD Attending Provider at Discharge: John Rowe MD Primary Care Provider: Nazia Jha Diagnoses at Discharge Discharge Diagnosis (1) Overdose: Status: Acute Problem details: Unintentional, secondary to narcotics. Narcotics stopped. (2) Hypotension: Status: Acute Problem details: Resolved Reason for Visit Reason for Visit: ACCIDENTAL OD Hospital Course Hospital Course: Lauren is a 74-year-old white female who presented to the hospital with concerns of unintentional overdose of narcotics. She was very lethargic, and required Narcan. An ABG was checked she had severe CO2 narcosis and reduced pH. She was placed on BiPAP, and eventually on a Narcan drip. Throughout several days this is able to be weaned off. She had strong evidence for chronic lung disease, COPD with chronic hypercarbia that predisposes her to significant CO2 retention. This may be exacerbated by obesity hypoventilation. While in the hospital she was not given any sedating medicines, or narcotics and by the end of hospitalization she was much improved. I discussed with her and her family that she should not receive any further narcotics or sedating medication. With her significant CO2 narcosis it was thought she would benefit greatly from trilogy as repetitive hospitalizations for CO2 narcosis are expected without it secondary to her chronic respiratory failure.. She required AVAPS during her hospital stay. Beta-yokasta dose was reduced during her hospital stay secondary to bradycardia. Physical Exam Narrative: EXAM NARRATIVE: General exam no apparent distress Cardiovascular regular rate and rhythm without murmur Lungs clear but with diminished breath sounds bilaterally Abdomen is soft with positive bowel sounds, obese Extremities no cyanosis or clubbing Urinary Catheter Management^: Dumont: Cath Placed During This Visit: yes, but has since been removed by the nurse Reason for Continuing Indwelling Catheter: Accurate Measurement of Urinary Output in Critically Ill Patients Urinary Catheter Date of Insertion: 03/19/20 Urinary Catheter Time of Insertion: 20:10 Date Urinary Catheter Removed: 03/21/20 Time Urinary Catheter Discontinued: 14:44 Discharge Data Data Completed and Pending: Completed Studies During Hospitalization Category Date Time Status XR chest 1V wai ble 13314 Urgent Exams 03/19/20 16:22 Completed Labs from last 24 hours 03/22/20 03/22/20 03/21/20 10:55 06:23 21:51 A-a O2 Gradient POC Glucose 169 134 152 03/21/20 03/19/20 17:32 18:27 A-a O2 Gradient Not Reportable POC Glucose 150 Vitals: Last Vital Signs Temp 97.7 F 03/22/20 15:03 Pulse 58 L 03/22/20 15:03 Resp 16 03/22/20 15:03 BP 166/67 03/22/20 15:03 Pulse Ox 96 03/22/20 15:03 Discharge Plan Discharge Patient Disposition: Home Health Service Condition: Stable Prescriptions: New carvedilol 3.125 mg Tablet 3.125 mg PO Q12H Qty: 60 RF: 0 lisinopril 10 mg Tablet 10 mg PO DAILY Qty: 30 RF: 0 Continued trazodone 150 mg tablet 150 mg PO .BEDTIME PRN (Reason: Sleep) RF: 0 clopidogrel [Plavix] 75 mg tablet 75 mg PO DAILY RF: 0 furosemide [Lasix] 80 mg tablet 80 mg PO DAILY RF: 0 Invokana 300 mg tablet 300 mg PO QAM RF: 0 atorvastatin [Lipitor] 20 mg tablet 20 mg PO DAILY RF: 0 pregabalin 200 mg capsule 200 mg PO TID 30 Days Qty: 90 RF: 0 esomeprazole magnesium 40 mg capsule,delayed release(DR/EC) 40 mg PO DAILY RF: 0 buspirone 15 mg tablet 15 mg PO BID RF: 0 duloxetine 60 mg Capsule,Delayed Release(Dr/Ec) 60 mg PO DAILY RF: 0 Januvia 100 mg tablet 100 mg PO DAILY RF: 0 Discontinued hydrocodone-acetaminophen 7.5-325 mg tablet 1 tab PO .6 times a day PRN (Reason: pain) 30 Days Qty: 180 RF: 0 carvedilol 6.25 mg tablet 12.5 mg PO BID RF: 0 cyclobenzaprine 10 mg tablet 10 mg PO TID PRN (Reason: muscle spasms) RF: 0 hydroxyzine HCl 25 mg tablet 25 mg PO BID PRN (Reason: Edema) RF: 0 lisinopril 2.5 mg tablet 2.5 mg PO DAILY RF: 0 Other Ambulatory Orders: DME: Non-Invasive Vent (Order) Location: None Selected Ordered By: John Rowe Referrals: [facility] [Outside] Nazia Jha PA [Primary Care Provider] - 4-7 days Discharge Diet: Cardiac and Diabetic Discharge Activity: Increase activity as tolerated Activity Restrictions/Additional Instructions: Resume home oxygen, 2 L per nasal cannula Wear noninvasive ventilator, whenever sleeping Follow-up with your primary care provider in 3 to 5 days Avoid narcotics, muscle relaxants secondary to your breathing condition that can cause CO2 retention and severe lethargy or even . 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
[2020-03-22 17:10] LABS: Glucose Point of Care 131 mg/dL (70-110)
--- NOTE | 2020-03-22 19:46 | PC.NURSE ---
Discharge Note Pt left via wheelchair, all belongings taken with her, IV taken out prior to coming on shift. No other needs voiced at this time.
== END 2020-03-22 19:46 | disposition home health service (06) | DRG 918 ==
LOC: ER 16:54 → ICU 18:33 → MEDSURG 03-21 18:04
PROVIDERS: Family Medicine; Internal Medicine; Admitting Provider Internal Medicine; PCP Physician Assistant; Visit Provider Internal Medicine
DX: T40.691A Poisoning by other narcotics, accidental (unintentional), initial encounter (principal); Y92.009 Unspecified place in unspecified non-institutional (private) residence as the place of occurrence of the external cause; I95.9 Hypotension, unspecified; R00.1 Bradycardia, unspecified; Z79.02 Long term (current) use of antithrombotics/antiplatelets; G89.29 Other chronic pain; M54.5 Low back pain; Z86.73 Personal history of transient ischemic attack (TIA), and cerebral infarction without residual deficits; F41.8 Other specified anxiety disorders; K21.9 Gastro-esophageal reflux disease without esophagitis; I11.0 Hypertensive heart disease with heart failure; I50.9 Heart failure, unspecified; F17.210 Nicotine dependence, cigarettes, uncomplicated
CPT/HCPCS: 12345; 36415; 36416; 36600; 51702; 71045; 80051; 80053; 80306; 80307; 81003; 82803; 82810; 82962; 83986; 85025; 87493; 93005; 94640; 94660; 96372; 96375; 97110; 97116; 97162; 97530; 99284; G0378; J0360; J1650; J1815; J2310; J7030

== ENCOUNTER 2020-06-11 15:55 | Emergency (ER) | payer MEDICARE, MEDICAID, SELFPAY ==
[2020-06-11] VITALS (7 sets, daily range): BP systolic 143–174; BP diastolic 68–88; PULSE 55–63; RESP 14–28; TEMP 37.3; O2SAT 92–99; BMI 45.3
[2020-06-11 16:53] LABS: Basophils # 0.1 10^3/uL (0.0-0.1); Basophils % 0.8 %; Eosinophils # 0.1 10^3/uL (0.0-0.8); Eosinophils % 1.9 %; Hematocrit 45.6 % (37.0-47.0); Hemoglobin 13.9 g/dL (11.5-15.3); Lymphocytes # 2.2 10^3/uL (0.8-4.8); Lymphocytes % 30.2 %; Mean Corpuscular HGB Conc 30.5 g/dL (30.0-36.0); Mean Corpuscular Hemoglobin 26.4 pg (28.0-34.0); Mean Corpuscular Volume 86.7 fL (81-99); Monocytes # 0.7 10^3/uL (0.2-0.9); Monocytes % 9.8 %; Neutrophils # 4.15 10^3/uL (1.8-7.7); Neutrophils % 56.9 %; Nucleated Red Blood Cells % 0 %; Platelet Count 280 10^3/cmm (130-400); Red Blood Count 5.26 10^6/uL (4.1-5.3); Red Cell Distribution Width 16.2 % (12.1-15.1); White Blood Count 7.3 10^3/uL (4.0-10.0)
--- NOTE | 2020-06-11 16:56 | ED_ITS ---
Documented by User: Manny Spencer DO 06/12/20 17:43 HPI - SOB/Dyspnea General: Chief Complaint: Shortness of Breath/Dyspnea Stated Complaint: Excessive Coughing/SOB Time Seen by Provider: 06/11/20 16:20 History of Present Illness: HPI Narrative: 72-year-old female presents complaining of cough shortness of breath moderately productive. She is always on oxygen about 2 L/min and remains on that with good sats today in addition to this she has had myalgias and diarrhea is been going on chronically but a little bit worse last few days she states. MD elicited complaint: shortness of breath and cough Pertinent past history: COPD, congestive heart failure, diabetes and aspiration Onset (ago): day(s) Timing: constant Severity: severe Exacerbating factors: exertion, movement and coughing Relieving factors: oxygen, rest and upright position Known history of: COPD, congestive heart failure, diabetes and aspiration pneumonia Associated symptoms: Reports chest congestion and cough; Deny abdominal pain, chest pain, diaphoresis, dizziness, extremity pain, fever(s), hemoptysis, lightheadedness, myalgias, nausea, orthopnea, palpitations, paresthesias, polydipsia, polyuria, rash, sense of impending doom, syncope or vomiting Review of Systems Const: Denies: fever(s) or diaphoresis ENMT: Denies: throat pain, ear or mastoid pain, nasal discharge or nasal congestion Card: Denies: chest pain, palpitations, lightheadedness, syncope or orthopnea Resp: Reports: chest congestion; Denies: hemoptysis GI: Denies: abdominal pain, nausea or vomiting : Denies: flank pain, difficulty voiding, dysuria, urinary frequency or urinary urgency Musc: Denies: extremity pain Skin/Breast: Denies: rash or pruritus Neuro: Denies: dizziness Endo: Denies: polyuria or polydipsia PFSH ED PFSH: Medical History Carpal tunnel syndrome on both sides Chronic radicular low back pain COPD (chronic obstructive pulmonary disease) CVA (cerebral vascular accident) Depression with anxiety Diabetes Encounter for long-term use of opiate analgesic GERD (gastroesophageal reflux disease) History of CHF (congestive heart failure) History of GI bleed Hypertension Low back pain Opioid contract exists Smokeless tobacco use Surgical History H/O knee surgery History of knee replacement History of lumbar surgery Also history of spinal cord stimulator, currently not functioning History of shoulder surgery Family History Other CAD (coronary artery disease) Hypertension Stroke Denies family history of Anesthesia complication Bleeding disorder Social History Smoking and tobacco status: current every day smoker smokeless tobacco Alcohol intake: never Physical Exam Const: COMMON NORMALS: no acute distress GENERAL APPEARANCE: cooperative and comfortable ORIENTATION/CONSCIOUSNESS: Yes awake, Yes oriented to person, Yes oriented to place and Yes oriented to time HENMT: COMMON NORMALS: normocephalic, atraumatic and hearing grossly normal bilaterally HEAD & SCALP: normocephalic and atraumatic Eye: COMMON NORMALS: Equal, round and reactive pupils present, EOMs intact bilaterally, conjunctivae normal and no scleral icterus CONJUNCTIVA: Yes conjunctivae normal PUPIL: Yes Equal, round and reactive pupils present Neck/C-Spine: COMMON NORMALS: full ROM, no lymphadenopathy, supple and no JVD Lymph: LYMPHATIC: no lymphadenopathy noted and no lymphedema noted Resp: EFFORT & INSPECTION: Yes able to speak in complete sentences and Yes Actively coughing AUSCULTATION: rales and wheezes Cardio: COMMON NORMALS: no JVD, regular rate, regular rhythm and No murmurs present (Cardio) RATE: regular rate RHYTHM: regular rhythm GI: COMMON NORMALS: Soft to palpation and No hepatosplenomegaly present AUSCULTATION: Yes normoactive bowel sounds PALPATION: Yes Soft to palpation, No Tenderness to palpation present (GI), No Guarding due to palpation present (GI) and Yes No hepatosplenomegaly present Extremity: COMMON NORMALS: normal to inspection GENERAL: Yes edema Neuro: SENSORIUM/ORIENTATION: Yes oriented to person, Yes oriented to place and Yes oriented to time Skin: COMMON NORMALS: no rashes or lesions noted GENERAL SKIN EXAM: no rashes or lesions noted Course Vital Signs: Vital signs: Vital Signs Temperature 99.2 F 06/11/20 16:10 Pulse Rate 58 L 06/11/20 20:41 Respiratory Rate 15 06/11/20 20:55 Blood Pressure 143/72 06/11/20 20:55 Pulse Oximetry 96 06/11/20 20:55 MDM - SOB/Dyspnea MDM Narrative: Medical decision making narrative: Work-up pending care turned over to Dr. Hunt at change of shift Lab Data: Labs: Lab Results 06/11/20 06/11/20 06/11/20 Range/Units 16:37 16:38 16:38 WBC 7.3 (4.0-10.0) 10^3/ uL RBC 5.26 (4.1-5.3) 10^6/u L Hgb 13.9 (11.5-15.3) g/dL Hct 45.6 (37.0-47.0) % MCV 86.7 (81-99) fL MCH 26.4 L (28.0-34.0) pg MCHC 30.5 (30.0-36.0) g/dL RDW 16.2 H (12.1-15.1) % Plt Count 280 (130-400) 10^3/c mm MPV 10.0 (7.4-10.4) fL Neut % (Auto) 56.9 % Lymph % (Auto) 30.2 % [place] % (Auto) 9.8 % Eos % (Auto) 1.9 % Baso % (Auto) 0.8 % Neut # (Auto) 4.15 (1.8-7.7) 10^3/u L Lymph # (Auto) 2.2 (0.8-4.8) 10^3/u L [place] # (Auto) 0.7 (0.2-0.9) 10^3/u L Eos # (Auto) 0.1 (0.0-0.8) 10^3/u L Baso # (Auto) 0.1 (0.0-0.1) 10^3/u L Nucleated RBC % (a uto) 0 % Nucleated RBCs # 0.0 /100WBC Fibrinogen 466 (174-498) mg/dL D-Dimer 0.51 (0-0.59) ug/mIFE U Specimen Type Sample Site ABG pH (7.35-7.45) ABG pCO2 (35-45) mmHg ABG pO2 (80.0-100.0) mmH g ABG HCO3 (22-26) mmol/L ABG Base Excess (-2.0-2.0) mmol/ L Cornel Test Hematocrit (37-47) % O2 Delivery Device O2 Liters/Min % FiO2 % Ichthyology Teacher ID Sodium (136-145) mmol/L Potassium (3.5-5.1) mmol/L Chloride (98-107) mmol/L Carbon Dioxide (22-29) mmol/L Anion Gap (5-19) BUN (8-23) mg/dL Creatinine (0.5-0.9) mg/dL GFR Calculation Glucose (65-115) mg/dL Calculated Osmolal ity (285-295) mOsm/k g Lactic Acid (0.5-2.2) mmol/L Calcium (8.5-10.5) mg/dL Ferritin (15-150) ng/mL Total Bilirubin (0.15-1.2) mg/dL AST (0-32) U/L ALT (0-33) U/L Alkaline Phosphata se (35-105) IU/L Lactate Dehydrogen ase (135-214) U/L C-Reactive Protein (0.0-4.9) mg/L Total Protein (6.6-8.7) g/dL Albumin (3.5-5.2) g/dL Globulin (1.3-4.6) g/dL Procalcitonin (0-0.5) ng/mL Influenza Type A A g (Negative) Influenza Type B A g (Negative) SARS-CoV-2 Ag (Rap id) Negative (Negative) 06/11/20 06/11/20 06/11/20 Range/Units 16:38 16:38 16:38 WBC (4.0-10.0) 10^3/ uL RBC (4.1-5.3) 10^6/u L Hgb (11.5-15.3) g/dL Hct (37.0-47.0) % MCV (81-99) fL MCH (28.0-34.0) pg MCHC (30.0-36.0) g/dL RDW (12.1-15.1) % Plt Count (130-400) 10^3/c mm MPV (7.4-10.4) fL Neut % (Auto) % Lymph % (Auto) % [place] % (Auto) % Eos % (Auto) % Baso % (Auto) % Neut # (Auto) (1.8-7.7) 10^3/u L Lymph # (Auto) (0.8-4.8) 10^3/u L [place] # (Auto) (0.2-0.9) 10^3/u L Eos # (Auto) (0.0-0.8) 10^3/u L Baso # (Auto) (0.0-0.1) 10^3/u L Nucleated RBC % (a uto) % Nucleated RBCs # /100WBC Fibrinogen (174-498) mg/dL D-Dimer (0-0.59) ug/mIFE U Specimen Type Sample Site ABG pH (7.35-7.45) ABG pCO2 (35-45) mmHg ABG pO2 (80.0-100.0) mmH g ABG HCO3 (22-26) mmol/L ABG Base Excess (-2.0-2.0) mmol/ L Cornel Test Hematocrit (37-47) % O2 Delivery Device O2 Liters/Min % FiO2 % Ichthyology Teacher ID Sodium 142 (136-145) mmol/L Potassium 3.8 (3.5-5.1) mmol/L Chloride 101 (98-107) mmol/L Carbon Dioxide 31 H (22-29) mmol/L Anion Gap 13.8 (5-19) BUN 20 (8-23) mg/dL Creatinine 0.7 (0.5-0.9) mg/dL GFR Calculation Not Reportable Glucose 111 (65-115) mg/dL Calculated Osmolal ity 297 H (285-295) mOsm/k g Lactic Acid 1.0 (0.5-2.2) mmol/L Calcium 10.1 (8.5-10.5) mg/dL Ferritin 24 (15-150) ng/mL Total Bilirubin 0.4 (0.15-1.2) mg/dL AST 10 (0-32) U/L ALT 11 (0-33) U/L Alkaline Phosphata se 87 (35-105) IU/L Lactate Dehydrogen ase 182 (135-214) U/L C-Reactive Protein 8.2 H (0.0-4.9) mg/L Total Protein 7.1 (6.6-8.7) g/dL Albumin 3.9 (3.5-5.2) g/dL Globulin 3.2 (1.3-4.6) g/dL Procalcitonin 0.07 (0-0.5) ng/mL Influenza Type A A g Negative (Negative) Influenza Type B A g Negative (Negative) SARS-CoV-2 Ag (Rap id) (Negative) 06/11/20 Range/Units 17:09 WBC (4.0-10.0) 10^3/ uL RBC (4.1-5.3) 10^6/u L Hgb (11.5-15.3) g/dL Hct (37.0-47.0) % MCV (81-99) fL MCH (28.0-34.0) pg MCHC (30.0-36.0) g/dL RDW (12.1-15.1) % Plt Count (130-400) 10^3/c mm MPV (7.4-10.4) fL Neut % (Auto) % Lymph % (Auto) % [place] % (Auto) % Eos % (Auto) % Baso % (Auto) % Neut # (Auto) (1.8-7.7) 10^3/u L Lymph # (Auto) (0.8-4.8) 10^3/u L [place] # (Auto) (0.2-0.9) 10^3/u L Eos # (Auto) (0.0-0.8) 10^3/u L Baso # (Auto) (0.0-0.1) 10^3/u L Nucleated RBC % (a uto) % Nucleated RBCs # /100WBC Fibrinogen (174-498) mg/dL D-Dimer (0-0.59) ug/mIFE U Specimen Type Arterial Sample Site Radial, right ABG pH 7.36 (7.35-7.45) ABG pCO2 58.8 H (35-45) mmHg ABG pO2 161.0 H (80.0-100.0) mmH g ABG HCO3 33.1 H (22-26) mmol/L ABG Base Excess 5.8 H (-2.0-2.0) mmol/ L Cornel Test Pos Hematocrit 42.7 (37-47) % O2 Delivery Device Nc O2 Liters/Min 2.0 % FiO2 28.0 % Ichthyology Teacher ID Ed Sodium (136-145) mmol/L Potassium (3.5-5.1) mmol/L Chloride (98-107) mmol/L Carbon Dioxide (22-29) mmol/L Anion Gap (5-19) BUN (8-23) mg/dL Creatinine (0.5-0.9) mg/dL GFR Calculation Glucose (65-115) mg/dL Calculated Osmolal ity (285-295) mOsm/k g Lactic Acid (0.5-2.2) mmol/L Calcium (8.5-10.5) mg/dL Ferritin (15-150) ng/mL Total Bilirubin (0.15-1.2) mg/dL AST (0-32) U/L ALT (0-33) U/L Alkaline Phosphata se (35-105) IU/L Lactate Dehydrogen ase (135-214) U/L C-Reactive Protein (0.0-4.9) mg/L Total Protein (6.6-8.7) g/dL Albumin (3.5-5.2) g/dL Globulin (1.3-4.6) g/dL Procalcitonin (0-0.5) ng/mL Influenza Type A A g (Negative) Influenza Type B A g (Negative) SARS-CoV-2 Ag (Rap id) (Negative) Discharge Plan Discharge Patient Disposition: Home Clinical Impression: Acute exacerbation of chronic obstructive airways disease Condition: Stable Prescriptions: New prednisone 10 mg tablet 20 mg PO TID 5 Days Qty: 30 RF: 0 doxycycline hyclate 100 mg capsule 100 mg PO BID 10 Days Qty: 20 RF: 0 Tessalon Perles 100 mg capsule 200 mg PO TID PRN (Reason: cough) Qty: 60 RF: 0 albuterol sulfate 90 mcg/actuation HFA aerosol inhaler 2 inh INHALATION Q4H PRN (Reason: shortness of breath or wheezing) Qty: 6.7 RF: 0 Zofran 4 mg tablet 4 mg PO Q6H PRN (Reason: nausea and vomiting) Qty: 20 RF: 0 No Action trazodone 150 mg tablet 150 mg PO .BEDTIME PRN (Reason: Sleep) RF: 0 clopidogrel [Plavix] 75 mg tablet 75 mg PO DAILY RF: 0 furosemide [Lasix] 80 mg tablet 80 mg PO DAILY RF: 0 Invokana 300 mg tablet 300 mg PO QAM RF: 0 atorvastatin [Lipitor] 20 mg tablet 20 mg PO DAILY RF: 0 pregabalin 200 mg capsule 200 mg PO TID 30 Days Qty: 90 RF: 0 esomeprazole magnesium 40 mg capsule,delayed release(DR/EC) 40 mg PO DAILY RF: 0 buspirone 15 mg tablet 15 mg PO BID RF: 0 duloxetine 60 mg Capsule,Delayed Release(Dr/Ec) 60 mg PO DAILY RF: 0 Januvia 100 mg tablet 100 mg PO DAILY RF: 0 carvedilol 3.125 mg Tablet 3.125 mg PO Q12H Qty: 60 RF: 0 lisinopril 10 mg Tablet 10 mg PO DAILY Qty: 30 RF: 0 losartan 50 mg tablet 50 mg PO DAILY RF: 0 metformin 1,000 mg tablet 1,000 mg PO DAILY RF: 0 ProAir HFA 90 mcg/actuation HFA aerosol inhaler See Rx Instructions .ROUTE .COMPLEX RF: 0 pioglitazone 30 mg tablet 30 mg PO DAILY RF: 0 Discharge Orders: Discharge Order (Routine); Ordered 06/11/20 Ordered By: Naomi Byrne Referrals: Nazia Jha PA [Primary Care Provider] - 1-3 days Discharge Diet: Advance as tolerated Discharge Activity: Limit activity as instructed Patient Instructions: Chronic Obstructive Pulmonary Disease (ED) Activity Restrictions/Additional Instructions: Please return to the ER immediately for any of the signs or symptoms listed on your discharge instruction sheets, worsening/changing of your symptoms, you are not getting better as quickly as expected, or for ANY other cause or concerns. Please return to the ER for new onset of chest pain, worsening of your shortness of breath, fever, weakness, or for any other cause for concern. Be certain to follow-up with your doctor in the next 1 to 3 days for recheck. We will notify you about your follow-up Covid test so other than going to the doctor keep yourself at home and quarantined until cleared by us. We will contact you with your test result. Stand Alone Forms: Work/School Release Sign Out Sign Out Data: Patient Sign Out occurred on 06/11/20 at 18:46. Patient's care was discussed, and care was transferred from to Naomi Byrne. 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 [employer] for Chg Fwd Documented by User: Naomi Byrne 06/12/20 03:04 HPI - SOB/Dyspnea General: Chief Complaint: Shortness of Breath/Dyspnea Stated Complaint: Excessive Coughing/SOB Time Seen by Provider: 06/11/20 16:20 PFSH ED PFSH: Medical History Carpal tunnel syndrome on both sides Chronic radicular low back pain COPD (chronic obstructive pulmonary disease) CVA (cerebral vascular accident) Depression with anxiety Diabetes Encounter for long-term use of opiate analgesic GERD (gastroesophageal reflux disease) History of CHF (congestive heart failure) History of GI bleed Hypertension Low back pain Opioid contract exists Smokeless tobacco use Surgical History H/O knee surgery History of knee replacement History of lumbar surgery Also history of spinal cord stimulator, currently not functioning History of shoulder surgery Family History Other CAD (coronary artery disease) Hypertension Stroke Denies family history of Anesthesia complication Bleeding disorder Social History Smoking and tobacco status: current every day smoker smokeless tobacco Alcohol intake: never Course Vital Signs: Vital signs: Vital Signs Temperature 99.2 F 06/11/20 16:10 Pulse Rate 58 L 06/11/20 20:41 Respiratory Rate 15 06/11/20 20:55 Blood Pressure 143/72 06/11/20 20:55 Pulse Oximetry 96 06/11/20 20:55 MDM - SOB/Dyspnea MDM Narrative: Medical decision making narrative: 193 -patient care turned over to me at change of shift from Dr. Spencer. Please see his notes for his history, physical exam and medical decision-making notes. On my exam the patient has minimal if any wheezing. Chest x-ray does not have a good inspiration but there is no focal infiltrates seen. Patient's pulse ox is good and vital signs are within normal range. Patient's rapid Covid test is negative and per further history it does not sound like she likely has Covid. When asked the patient states she wants to go home she thinks she will do better there. I will go ahead and discharge the patient per her request. We will send her home with an inhaler and she will also be on prednisone, doxycycline for her COPD exacerbation. She denies any other complaints or concerns and she is feeling better and wants to be discharged. She understands to keep her self quarantine until her confirmatory Covid test is back and negative. Lab Data: Attestation: I reviewed the patient's lab results. Labs: Lab Results 06/11/20 06/11/20 06/11/20 Range/Units 16:37 16:38 16:38 WBC 7.3 (4.0-10.0) 10^3/ uL RBC 5.26 (4.1-5.3) 10^6/u L Hgb 13.9 (11.5-15.3) g/dL Hct 45.6 (37.0-47.0) % MCV 86.7 (81-99) fL MCH 26.4 L (28.0-34.0) pg MCHC 30.5 (30.0-36.0) g/dL RDW 16.2 H (12.1-15.1) % Plt Count 280 (130-400) 10^3/c mm MPV 10.0 (7.4-10.4) fL Neut % (Auto) 56.9 % Lymph % (Auto) 30.2 % [place] % (Auto) 9.8 % Eos % (Auto) 1.9 % Baso % (Auto) 0.8 % Neut # (Auto) 4.15 (1.8-7.7) 10^3/u L Lymph # (Auto) 2.2 (0.8-4.8) 10^3/u L [place] # (Auto) 0.7 (0.2-0.9) 10^3/u L Eos # (Auto) 0.1 (0.0-0.8) 10^3/u L Baso # (Auto) 0.1 (0.0-0.1) 10^3/u L Nucleated RBC % (a uto) 0 % Nucleated RBCs # 0.0 /100WBC Fibrinogen 466 (174-498) mg/dL D-Dimer 0.51 (0-0.59) ug/mIFE U Specimen Type Sample Site ABG pH (7.35-7.45) ABG pCO2 (35-45) mmHg ABG pO2 (80.0-100.0) mmH g ABG HCO3 (22-26) mmol/L ABG Base Excess (-2.0-2.0) mmol/ L Cornel Test Hematocrit (37-47) % O2 Delivery Device O2 Liters/Min % FiO2 % Ichthyology Teacher ID Sodium (136-145) mmol/L Potassium (3.5-5.1) mmol/L Chloride (98-107) mmol/L Carbon Dioxide (22-29) mmol/L Anion Gap (5-19) BUN (8-23) mg/dL Creatinine (0.5-0.9) mg/dL GFR Calculation Glucose (65-115) mg/dL Calculated Osmolal ity (285-295) mOsm/k g Lactic Acid (0.5-2.2) mmol/L Calcium (8.5-10.5) mg/dL Ferritin (15-150) ng/mL Total Bilirubin (0.15-1.2) mg/dL AST (0-32) U/L ALT (0-33) U/L Alkaline Phosphata se (35-105) IU/L Lactate Dehydrogen ase (135-214) U/L C-Reactive Protein (0.0-4.9) mg/L Total Protein (6.6-8.7) g/dL Albumin (3.5-5.2) g/dL Globulin (1.3-4.6) g/dL Procalcitonin (0-0.5) ng/mL Influenza Type A A g (Negative) Influenza Type B A g (Negative) SARS-CoV-2 Ag (Rap id) Negative (Negative) 06/11/20 06/11/20 06/11/20 Range/Units 16:38 16:38 16:38 WBC (4.0-10.0) 10^3/ uL RBC (4.1-5.3) 10^6/u L Hgb (11.5-15.3) g/dL Hct (37.0-47.0) % MCV (81-99) fL MCH (28.0-34.0) pg MCHC (30.0-36.0) g/dL RDW (12.1-15.1) % Plt Count (130-400) 10^3/c mm MPV (7.4-10.4) fL Neut % (Auto) % Lymph % (Auto) % [place] % (Auto) % Eos % (Auto) % Baso % (Auto) % Neut # (Auto) (1.8-7.7) 10^3/u L Lymph # (Auto) (0.8-4.8) 10^3/u L [place] # (Auto) (0.2-0.9) 10^3/u L Eos # (Auto) (0.0-0.8) 10^3/u L Baso # (Auto) (0.0-0.1) 10^3/u L Nucleated RBC % (a uto) % Nucleated RBCs # /100WBC Fibrinogen (174-498) mg/dL D-Dimer (0-0.59) ug/mIFE U Specimen Type Sample Site ABG pH (7.35-7.45) ABG pCO2 (35-45) mmHg ABG pO2 (80.0-100.0) mmH g ABG HCO3 (22-26) mmol/L ABG Base Excess (-2.0-2.0) mmol/ L Cornel Test Hematocrit (37-47) % O2 Delivery Device O2 Liters/Min % FiO2 % Ichthyology Teacher ID Sodium 142 (136-145) mmol/L Potassium 3.8 (3.5-5.1) mmol/L Chloride 101 (98-107) mmol/L Carbon Dioxide 31 H (22-29) mmol/L Anion Gap 13.8 (5-19) BUN 20 (8-23) mg/dL Creatinine 0.7 (0.5-0.9) mg/dL GFR Calculation Not Reportable Glucose 111 (65-115) mg/dL Calculated Osmolal ity 297 H (285-295) mOsm/k g Lactic Acid 1.0 (0.5-2.2) mmol/L Calcium 10.1 (8.5-10.5) mg/dL Ferritin 24 (15-150) ng/mL Total Bilirubin 0.4 (0.15-1.2) mg/dL AST 10 (0-32) U/L ALT 11 (0-33) U/L Alkaline Phosphata se 87 (35-105) IU/L Lactate Dehydrogen ase 182 (135-214) U/L C-Reactive Protein 8.2 H (0.0-4.9) mg/L Total Protein 7.1 (6.6-8.7) g/dL Albumin 3.9 (3.5-5.2) g/dL Globulin 3.2 (1.3-4.6) g/dL Procalcitonin 0.07 (0-0.5) ng/mL Influenza Type A A g Negative (Negative) Influenza Type B A g Negative (Negative) SARS-CoV-2 Ag (Rap id) (Negative) 06/11/20 Range/Units 17:09 WBC (4.0-10.0) 10^3/ uL RBC (4.1-5.3) 10^6/u L Hgb (11.5-15.3) g/dL Hct (37.0-47.0) % MCV (81-99) fL MCH (28.0-34.0) pg MCHC (30.0-36.0) g/dL RDW (12.1-15.1) % Plt Count (130-400) 10^3/c mm MPV (7.4-10.4) fL Neut % (Auto) % Lymph % (Auto) % [place] % (Auto) % Eos % (Auto) % Baso % (Auto) % Neut # (Auto) (1.8-7.7) 10^3/u L Lymph # (Auto) (0.8-4.8) 10^3/u L [place] # (Auto) (0.2-0.9) 10^3/u L Eos # (Auto) (0.0-0.8) 10^3/u L Baso # (Auto) (0.0-0.1) 10^3/u L Nucleated RBC % (a uto) % Nucleated RBCs # /100WBC Fibrinogen (174-498) mg/dL D-Dimer (0-0.59) ug/mIFE U Specimen Type Arterial Sample Site Radial, right ABG pH 7.36 (7.35-7.45) ABG pCO2 58.8 H (35-45) mmHg ABG pO2 161.0 H (80.0-100.0) mmH g ABG HCO3 33.1 H (22-26) mmol/L ABG Base Excess 5.8 H (-2.0-2.0) mmol/ L Cornel Test Pos Hematocrit 42.7 (37-47) % O2 Delivery Device Nc O2 Liters/Min 2.0 % FiO2 28.0 % Ichthyology Teacher ID Ed Sodium (136-145) mmol/L Potassium (3.5-5.1) mmol/L Chloride (98-107) mmol/L Carbon Dioxide (22-29) mmol/L Anion Gap (5-19) BUN (8-23) mg/dL Creatinine (0.5-0.9) mg/dL GFR Calculation Glucose (65-115) mg/dL Calculated Osmolal ity (285-295) mOsm/k g Lactic Acid (0.5-2.2) mmol/L Calcium (8.5-10.5) mg/dL Ferritin (15-150) ng/mL Total Bilirubin (0.15-1.2) mg/dL AST (0-32) U/L ALT (0-33) U/L Alkaline Phosphata se (35-105) IU/L Lactate Dehydrogen ase (135-214) U/L C-Reactive Protein (0.0-4.9) mg/L Total Protein (6.6-8.7) g/dL Albumin (3.5-5.2) g/dL Globulin (1.3-4.6) g/dL Procalcitonin (0-0.5) ng/mL Influenza Type A A g (Negative) Influenza Type B A g (Negative) SARS-CoV-2 Ag (Rap id) (Negative) Imaging Data^: CXR: Attestation: I personally reviewed and interpreted this imaging study as follows: My impression: Poor inspiration otherwise no acute cardiopulmonary findings. EKG Data^: EKG 1: Attestation: I personally reviewed and interpreted this EKG as follows: EKG Interpretation Date: 06/11/20 EKG interpretation time: 16:56 Interpretation: Normal sinus rhythm at 95 beats a minute, left axis deviation, LVH, no blocks, normal intervals, no acute ST-T wave changes. Discharge Plan Discharge Patient Disposition: Home Clinical Impression: Acute exacerbation of chronic obstructive airways disease Condition: Stable Prescriptions: New prednisone 10 mg tablet 20 mg PO TID 5 Days Qty: 30 RF: 0 doxycycline hyclate 100 mg capsule 100 mg PO BID 10 Days Qty: 20 RF: 0 Tessalon Perles 100 mg capsule 200 mg PO TID PRN (Reason: cough) Qty: 60 RF: 0 albuterol sulfate 90 mcg/actuation HFA aerosol inhaler 2 inh INHALATION Q4H PRN (Reason: shortness of breath or wheezing) Qty: 6.7 RF: 0 Zofran 4 mg tablet 4 mg PO Q6H PRN (Reason: nausea and vomiting) Qty: 20 RF: 0 No Action trazodone 150 mg tablet 150 mg PO .BEDTIME PRN (Reason: Sleep) RF: 0 clopidogrel [Plavix] 75 mg tablet 75 mg PO DAILY RF: 0 furosemide [Lasix] 80 mg tablet 80 mg PO DAILY RF: 0 Invokana 300 mg tablet 300 mg PO QAM RF: 0 atorvastatin [Lipitor] 20 mg tablet 20 mg PO DAILY RF: 0 pregabalin 200 mg capsule 200 mg PO TID 30 Days Qty: 90 RF: 0 esomeprazole magnesium 40 mg capsule,delayed release(DR/EC) 40 mg PO DAILY RF: 0 buspirone 15 mg tablet 15 mg PO BID RF: 0 duloxetine 60 mg Capsule,Delayed Release(Dr/Ec) 60 mg PO DAILY RF: 0 Januvia 100 mg tablet 100 mg PO DAILY RF: 0 carvedilol 3.125 mg Tablet 3.125 mg PO Q12H Qty: 60 RF: 0 lisinopril 10 mg Tablet 10 mg PO DAILY Qty: 30 RF: 0 losartan 50 mg tablet 50 mg PO DAILY RF: 0 metformin 1,000 mg tablet 1,000 mg PO DAILY RF: 0 ProAir HFA 90 mcg/actuation HFA aerosol inhaler See Rx Instructions .ROUTE .COMPLEX RF: 0 pioglitazone 30 mg tablet 30 mg PO DAILY RF: 0 Discharge Orders: Discharge Order (Routine); Ordered 06/11/20 Ordered By: Naomi Byrne Referrals: Nazia Jha PA [Primary Care Provider] - 1-3 days Discharge Diet: Advance as tolerated Discharge Activity: Limit activity as instructed Patient Instructions: Chronic Obstructive Pulmonary Disease (ED) Activity Restrictions/Additional Instructions: Please return to the ER immediately for any of the signs or symptoms listed on your discharge instruction sheets, worsening/changing of your symptoms, you are not getting better as quickly as expected, or for ANY other cause or concerns. Please return to the ER for new onset of chest pain, worsening of your shortness of breath, fever, weakness, or for any other cause for concern. Be certain to follow-up with your doctor in the next 1 to 3 days for recheck. We will notify you about your follow-up Covid test so other than going to the doctor keep yourself at home and quarantined until cleared by us. We will contact you with your test result. Stand Alone Forms: Work/School Release Sign Out Sign Out Data: Patient Sign Out occurred on 06/11/20 at 18:46. Patient's care was discussed, and care was transferred from to Naomi Byrne. 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 for Lea Dinero
[2020-06-11 17:06] LABS: Fibrinogen 466 mg/dL (174-498)
[2020-06-11 17:08] LABS: D Dimer 0.51 ug/mIFEU (0-0.59)
[2020-06-11 17:19] LABS: ABG PCO2 58.8 mmHg (35-45); ABG PH Result 7.36 (7.35-7.45); Arterial Blood Gas Hematocrit 42.7 % (37-47); Base Excess ABG 5.8 mmol/L (-2.0-2.0); Blood Gas Allen Test Pos; Blood Gas Sample Type Arterial; HCO3 ABG 33.1 mmol/L (22-26)
[2020-06-11 17:20] LABS: Blood Gas Operator Identificat ED; Blood Gas Sample Site Radial, right; Oxygen Device NC
[2020-06-11 17:22] LABS: Procalcitonin 0.07 ng/mL (0-0.5)
[2020-06-11 17:35] LABS: Alanine Aminotransferase 11 U/L (0-33); Albumin Level 3.9 g/dL (3.5-5.2); Alkaline Phosphatase 87 IU/L (35-105); Anion Gap 13.8 (5-19); Aspartate Amino Transferase 10 U/L (0-32); Blood Urea Nitrogen 20 mg/dL (8-23); C Reactive Protein 8.2 mg/L (0.0-4.9); Calcium 10.1 mg/dL (8.5-10.5); Carbon Dioxide 31 mmol/L (22-29); Chloride 101 mmol/L (98-107); Ferritin 24 ng/mL (15-150); Globulin 3.2 g/dL (1.3-4.6); Glucose 111 mg/dL (65-115); Osmolality Calculated 297 mOsm/kg (285-295); Potassium 3.8 mmol/L (3.5-5.1); Sodium 142 mmol/L (136-145); Total Bilirubin 0.4 mg/dL (0.15-1.2); Total Protein 7.1 g/dL (6.6-8.7)
[2020-06-11 17:37] LABS: Influenza A by IFA Negative (Negative); Influenza B by IFA Negative (Negative)
[2020-06-11 17:51] LABS: Lactate Dehydrogenase 182 U/L (135-214)
--- NOTE | 2020-06-11 18:02 | XR_ITS ---
WS: [id number] XR chest 1V portable [id number] REASON FOR EXAM: dyspnea/cough FINDINGS: The chest is unchanged compared to previous examination of 03/19/2020. There is marked cardiomegaly. Chronic interstitial changes in the left lower lung field. No definite acute pulmonary parenchymal or pleural abnormality. Mild changes of degenerative spondylosis in the lower thoracic spine. Dorsal column stimulator sowmya maria XR/XR chest 1V portable [id number] IMPRESSION: Stable abnormal chest as above.
[2020-06-11 18:48] LABS: SARS Covid-2 Antigen Negative (Negative)
--- NOTE | 2020-06-11 19:00 | PC.NURSE ---
report received from DAVID Smith and care transferred to DAVID Conn
[2020-06-11] MEDS: doxycycline 100 mg Tablet 200 MG PO (19:54)
[2020-06-11] MEDS: ondansetron 2 mg/ML SDV 2 mL 4 MG IVP (19:54)
[2020-06-11] MEDS: predniSONE 20 mg Tablet 60 MG PO (19:54)
[2020-06-11] MEDS: albuterol 8 gm MDI 2 PUFF INHALATION (20:30)
== END 2020-06-11 21:00 | disposition home or self-care (01) ==
PROVIDERS: Family Medicine; Emergency Provider Emergency Medicine; PCP Physician Assistant
DX: J44.1 Chronic obstructive pulmonary disease with (acute) exacerbation (principal); Z79.02 Long term (current) use of antithrombotics/antiplatelets; Z86.73 Personal history of transient ischemic attack (TIA), and cerebral infarction without residual deficits; E11.9 Type 2 diabetes mellitus without complications; I11.0 Hypertensive heart disease with heart failure; I50.9 Heart failure, unspecified; F17.210 Nicotine dependence, cigarettes, uncomplicated
CPT/HCPCS: 12345; 36600; 71045; 80053; 82728; 82803; 83605; 83615; 84145; 85025; 85378; 85384; 86140; 87040; 87426; 87804; 94640; 96374; 96375; 99282; 99284; J2405; J3535; J7512

== ENCOUNTER 2020-07-23 09:24 | Inpatient (IN) | payer MEDICARE, MEDICAID, SELFPAY ==
[2020-07-23] VITALS (51 sets, daily range): BP systolic 107–169; BP diastolic 44–91; PULSE 76–100; RESP 14–27; TEMP 36.6–37.9; O2SAT 90–99; BMI 46.5; BMI 45.3
--- NOTE | 2020-07-23 09:42 | ECG_ITS ---
[facility] Test Date: 2020-07-23 Pat Name: Lauren Jose Department: Room: Gender: Female Contract Administrator: : 1945 Requested By: Bijan Tovar Order Number: [id number] Espinoza MD: Georgia Brewer M.D. Measurements Intervals [place] Rate: 80 P: 31 NV: 208 QRS: 3 QRSD: 126 T: 70 QT: 359 QTc: 415 Interpretive Statements SINUS RHYTHM WITH SINUS ARRHYTHMIA MODERATE INTRAVENTRICULAR CONDUCTION DELAY [105+ ms QRS DURATION, 80+ ms Q/S IN V1/V2, NO Q AND 60+ ms R IN I/aVL/V5/V6] ST DEVIATION AND MODERATE T-WAVE ABNORMALITY, CONSIDER ANTERIOR ISCHEMIA [-0.1+ mV T WAVE IN V3/V4] Compared to ECG 03/19/2020 16:23:46 Possible ischemia now present Sinus bradycardia no longer present First degree AV block no longer present Prolonged QT interval no longer present T-wave abnormality still present Electronically Signed On 07-23-2020 20:26:11 RADIOLOGIC ELECTRONIC SPECIALIST by Georgia Brewer M.D. [id number]
--- NOTE | 2020-07-23 09:42 | XR_ITS ---
WS: [id number] PORTABLE CHEST HISTORY: Acute onset of chest pain. COMPARISON: 06/11/2020. New mild interstitial haziness over both lungs. Favor mild congestive heart failure and edema. No den se consolidation. No pleural effusion or pneumothorax. Cardiac size: Markedly enlarged cardiac silhouette. Mediastinum/Aorta: Moderate atherosclerosis aorta. Diffuse osteopenia. XR/XR chest 1V portable [id number] IMPRESSION: Marked enlargement of the heart is similar to prior studies. Mild CHF, progressed since the prior study.
--- NOTE | 2020-07-23 09:43 | ED_ITS ---
Documented by User: AURE Lim 07/24/20 07:11 HPI - Chest Pain General: Chief Complaint: Chest Pain Stated Complaint: CHEST PAIN/ ARM AND BACK PAIN Time Seen by Provider: 07/23/20 09:41 History of Present Illness: HPI narrative: Patient is a 75-year-old female who comes to the ED with some shortness of breath and chest pain. Patient has a past medical history of COPD, diabetes, hypertension, hyperlipidemia and GERD. Patient is currently on 3 L of oxygen at home. She states her shortness of breath is a chronic issue and this morning she feels like she was having some increased shortness of breath with some chest pain on the left side. She rates the chest pain a 6 out of 10. Chest pain started while at rest. Patient was brought in by EMS and they administered chewable aspirin before arriving. Denies any recent fevers, cough, nausea/vomiting, abdominal pain, dysuria, hematuria, constipation or blood in stool. Associated symptoms: Reports dyspnea; Deny abdominal pain, fever(s), nausea, palpitations or vomiting Review of Systems Const: Denies: fever(s), chills or fatigue Eyes: Denies: change in vision or eye discomfort ENMT: Denies: throat pain, odynophagia, nasal discharge or nasal congestion Card: Reports: chest pain; Denies: palpitations, edema, swelling of feet/ankles, dyspnea on exertion or orthopnea Resp: Reports: dyspnea; Denies: productive cough or non-productive cough GI: Reports: diarrhea; Denies: abdominal pain, nausea, vomiting, constipation or hematochezia : Denies: flank pain, dysuria or hematuria Musc: Denies: neck pain, back pain or extremity swelling Skin/Breast: Denies: rash or new lesions Neuro: Denies: headache(s), numbness in extremities or weakness in extremities PFSH ED PFSH: Medical History Carpal tunnel syndrome on both sides Chronic radicular low back pain COPD (chronic obstructive pulmonary disease) CVA (cerebral vascular accident) Depression with anxiety Diabetes Encounter for long-term use of opiate analgesic GERD (gastroesophageal reflux disease) History of CHF (congestive heart failure) History of GI bleed Hypertension Low back pain Opioid contract exists Smokeless tobacco use Surgical History H/O knee surgery History of knee replacement History of lumbar surgery Also history of spinal cord stimulator, currently not functioning History of shoulder surgery Family History Other CAD (coronary artery disease) Hypertension Stroke Denies family history of Anesthesia complication Bleeding disorder Social History Smoking and tobacco status: current every day smoker smokeless tobacco Alcohol intake: never Physical Exam Const: COMMON NORMALS: no acute distress, patient oriented x3 and alert GENERAL APPEARANCE: cooperative and comfortable HENMT: COMMON NORMALS: normocephalic HEAD & SCALP: normocephalic MOUTH: Normal oral and palatal mucosa present THROAT: posterior oropharynx normal and uvula midline Neck/C-Spine: COMMON NORMALS: supple GENERAL: Yes normal visual inspection Resp: COMMON NORMALS: normal respiratory effort, No retractions, No use of accessory muscles and clear to auscultation bilaterally AUSCULTATION: clear to auscultation bilaterally Cardio: COMMON NORMALS: regular rate, regular rhythm, S1 normal heart sound present, S2 normal heart sound present, No gallops present (Cardio), No clicks present (Cardio), No murmurs present (Cardio) and Peripheral pulses 2+ throughout RATE: regular rate RHYTHM: regular rhythm HEART SOUNDS: S1 normal heart sound present and S2 normal heart sound present PERIPHERAL PULSES: Peripheral pulses 2+ throughout GI: COMMON NORMALS: Normal to inspection, nondistended, normoactive bowel sounds present, Soft to palpation and no masses PALPATION: Yes Soft to palpation and Yes Tenderness to palpation present (GI) (Generalized mild abdominal tenderness to light and deep palpation.) : COMMON NORMALS: Yes no CVA tenderness BLADDER/KIDNEY EXAM: Yes no CVA tenderness Back/Pelvis: COMMON NORMALS: no CVA tenderness Extremity: COMMON NORMALS: normal to inspection Neuro: COMMON NORMALS: patient oriented x3 and moves all extremities SENSORIUM/ORIENTATION: Yes alert Skin: GENERAL SKIN EXAM: dry skin Course Vital Signs: Vital signs: Vital Signs Temperature 98 F 07/24/20 04:00 Pulse Rate 77 07/24/20 06:00 Respiratory Rate 14 07/24/20 06:00 Blood Pressure 121/51 07/24/20 06:00 Pulse Oximetry 92 07/24/20 06:00 MDM - Chest Pain Lab Data: Attestation: I reviewed the patient's lab results. Labs: Lab Results 07/23/20 07/23/20 07/23/20 Range/Units 09:38 09:38 09:38 WBC 15.6 H (4.0-10.0) 10^3/ uL RBC 5.15 (4.1-5.3) 10^6/u L Hgb 13.3 (11.5-15.3) g/dL Hct 44.5 (37.0-47.0) % MCV 86.4 (81-99) fL MCH 25.8 L (28.0-34.0) pg MCHC 29.9 L (30.0-36.0) g/dL RDW 18.1 H (12.1-15.1) % Plt Count 334 (130-400) 10^3/c mm MPV 9.8 (7.4-10.4) fL Neut % (Auto) 87.3 % Lymph % (Auto) 6.6 % Ellis % (Auto) 4.9 % Eos % (Auto) 0.2 % Baso % (Auto) 0.4 % Neut # (Auto) 13.63 H (1.8-7.7) 10^3/u L Lymph # (Auto) 1.0 (0.8-4.8) 10^3/u L Ellis # (Auto) 0.8 (0.2-0.9) 10^3/u L Eos # (Auto) 0.0 (0.0-0.8) 10^3/u L Baso # (Auto) 0.1 (0.0-0.1) 10^3/u L Nucleated RBC % (a uto) 0 % Nucleated RBCs # 0.0 /100WBC Sodium 144 (136-145) mmol/L Potassium 3.7 (3.5-5.1) mmol/L Chloride 99 (98-107) mmol/L Carbon Dioxide 33 H (22-29) mmol/L Anion Gap 15.7 (5-19) BUN 12 (8-23) mg/dL Creatinine 0.6 (0.5-0.9) mg/dL GFR Calculation Not Reportable Glucose 149 H (65-115) mg/dL Calculated Osmolal ity 301 H (285-295) mOsm/k g Calcium 9.4 (8.5-10.5) mg/dL Total Bilirubin 0.9 (0.15-1.2) mg/dL AST 9 (0-32) U/L ALT 12 (0-33) U/L Alkaline Phosphata se 77 (35-105) IU/L Troponin T Baselin e 16 H (0-10) ng/L Troponin T 120 Min [place] (0-10) ng/L Delta Troponin T (0-10) ABS# NT-Pro-B Natriuret Pep 175 H (0-125) pg/mL Total Protein 6.6 (6.6-8.7) g/dL Albumin 4.0 (3.5-5.2) g/dL Globulin 2.6 (1.3-4.6) g/dL Procalcitonin (0-0.5) ng/mL 07/23/20 07/23/20 Range/Units 09:38 11:32 WBC (4.0-10.0) 10^3/ uL RBC (4.1-5.3) 10^6/u L Hgb (11.5-15.3) g/dL Hct (37.0-47.0) % MCV (81-99) fL MCH (28.0-34.0) pg MCHC (30.0-36.0) g/dL RDW (12.1-15.1) % Plt Count (130-400) 10^3/c mm MPV (7.4-10.4) fL Neut % (Auto) % Lymph % (Auto) % Ellis % (Auto) % Eos % (Auto) % Baso % (Auto) % Neut # (Auto) (1.8-7.7) 10^3/u L Lymph # (Auto) (0.8-4.8) 10^3/u L Ellis # (Auto) (0.2-0.9) 10^3/u L Eos # (Auto) (0.0-0.8) 10^3/u L Baso # (Auto) (0.0-0.1) 10^3/u L Nucleated RBC % (a uto) % Nucleated RBCs # /100WBC Sodium (136-145) mmol/L Potassium (3.5-5.1) mmol/L Chloride (98-107) mmol/L Carbon Dioxide (22-29) mmol/L Anion Gap (5-19) BUN (8-23) mg/dL Creatinine (0.5-0.9) mg/dL GFR Calculation Glucose (65-115) mg/dL Calculated Osmolal ity (285-295) mOsm/k g Calcium (8.5-10.5) mg/dL Total Bilirubin (0.15-1.2) mg/dL AST (0-32) U/L ALT (0-33) U/L Alkaline Phosphata se (35-105) IU/L Troponin T Baselin e (0-10) ng/L Troponin T 120 Min [place] 140.7 H (0-10) ng/L Delta Troponin T 124.7 H* (0-10) ABS# NT-Pro-B Natriuret Pep (0-125) pg/mL Total Protein (6.6-8.7) g/dL Albumin (3.5-5.2) g/dL Globulin (1.3-4.6) g/dL Procalcitonin 0.08 (0-0.5) ng/mL Imaging Data^: CXR: Attestation: I personally reviewed and interpreted this imaging study as follows: Radiologist's impression: [address] [address] XRay Report Signed Patient: Lauren Jose Unit #: [id number] : 1945 Acct#:OV [id number] Age/Sex: 75 / F ADM Date: 07/23/20 Loc: ER Room/Bed: Attending Dr: Ordering Provider/Ordering MD: Bijan Tovar Date of Service: 07/23/20 Procedure(s): XR chest 1V portable [id number] Accession Number(s): [id number] Report Number: [id number] WS: [id number] PORTABLE CHEST HISTORY: Acute onset of chest pain. COMPARISON: 06/11/2020. New mild interstitial haziness over both lungs. Favor mild congestive heart failure and edema. No dense consolidation. No pleural effusion or pneumothorax. Cardiac size: Markedly enlarged cardiac silhouette. Mediastinum/Aorta: Moderate atherosclerosis aorta. Diffuse osteopenia. XR/XR chest 1V portable [id number] IMPRESSION: Marked enlargement of the heart is similar to prior studies. Mild CHF, progressed since the prior study. Dictated By: Bria Ricci DO Signed By: Bria Ricci DO Signed Date/Time: 07/23/20 1021 DD/ 1020 EKG Data^: EKG 1: Attestation: I personally reviewed and interpreted this EKG as follows: EKG interpretation date: 07/23/20 Interpretation: Sinus rhythm with occasional supraventricular premature complexes. 79 bpm. T wave abnormality in V2 and V3. No ST segment elevation or depression seen. Discharge Plan Discharge Patient Disposition: Admitted As Inpatient Admit Provider: Brenden Chowdhury Clinical Impression: Non-ST elevation OK (NSTEMI) Condition: Stable Coding Level of Care Code ED Closing Supervisor for Chg Fwd Exam Comprehensive Documented by User: Naomi Byrne 07/23/20 14:07 HPI - Chest Pain General: Chief Complaint: Chest Pain Stated Complaint: CHEST PAIN/ ARM AND BACK PAIN Time Seen by Provider: 07/23/20 09:41 PFSH ED PFSH: Medical History Carpal tunnel syndrome on both sides Chronic radicular low back pain COPD (chronic obstructive pulmonary disease) CVA (cerebral vascular accident) Depression with anxiety Diabetes Encounter for long-term use of opiate analgesic GERD (gastroesophageal reflux disease) History of CHF (congestive heart failure) History of GI bleed Hypertension Low back pain Opioid contract exists Smokeless tobacco use Surgical History H/O knee surgery History of knee replacement History of lumbar surgery Also history of spinal cord stimulator, currently not functioning History of shoulder surgery Family History Other CAD (coronary artery disease) Hypertension Stroke Denies family history of Anesthesia complication Bleeding disorder Social History Smoking and tobacco status: current every day smoker smokeless tobacco Alcohol intake: never Course ED course: 1243 -Case turned over to me from Bijan Tovar. EK G initially was okay but second EKG looks more concerning. QRS is widened though but then there are no reciprocal changes. Findings are somewhat similar to previous but not exactly. They were shared with Dr. Khanna as well as the patient's elevated troponin. He agrees the patient will need further evaluation and care was placed on nitro drip and admitted to the stepdown unit. I will go ahead and place these orders the patient states she is nearly pain-free at this time. Vital Signs: Vital signs: Vital Signs Temperature 98 F 07/24/20 04:00 Pulse Rate 77 07/24/20 06:00 Respiratory Rate 14 07/24/20 06:00 Blood Pressure 121/51 07/24/20 06:00 Pulse Oximetry 92 07/24/20 06:00 MDM - Chest Pain MDM Narrative: Medical decision making narrative: 1320 -Dr. Khanna is present and decided to go ahead and take the patient to the Optometric Technologist. Verbal report of the CT around pelvis by Dr. Goel is that of it being normal. Lab Data: Labs: Lab Results 07/23/20 07/23/20 07/23/20 Range/Units 09:38 09:38 09:38 WBC 15.6 H (4.0-10.0) 10^3/ uL RBC 5.15 (4.1-5.3) 10^6/u L Hgb 13.3 (11.5-15.3) g/dL Hct 44.5 (37.0-47.0) % MCV 86.4 (81-99) fL MCH 25.8 L (28.0-34.0) pg MCHC 29.9 L (30.0-36.0) g/dL RDW 18.1 H (12.1-15.1) % Plt Count 334 (130-400) 10^3/c mm MPV 9.8 (7.4-10.4) fL Neut % (Auto) 87.3 % Lymph % (Auto) 6.6 % Ellis % (Auto) 4.9 % Eos % (Auto) 0.2 % Baso % (Auto) 0.4 % Neut # (Auto) 13.63 H (1.8-7.7) 10^3/u L Lymph # (Auto) 1.0 (0.8-4.8) 10^3/u L Ellis # (Auto) 0.8 (0.2-0.9) 10^3/u L Eos # (Auto) 0.0 (0.0-0.8) 10^3/u L Baso # (Auto) 0.1 (0.0-0.1) 10^3/u L Nucleated RBC % (a uto) 0 % Nucleated RBCs # 0.0 /100WBC Sodium 144 (136-145) mmol/L Potassium 3.7 (3.5-5.1) mmol/L Chloride 99 (98-107) mmol/L Carbon Dioxide 33 H (22-29) mmol/L Anion Gap 15.7 (5-19) BUN 12 (8-23) mg/dL Creatinine 0.6 (0.5-0.9) mg/dL GFR Calculation Not Reportable Glucose 149 H (65-115) mg/dL Calculated Osmolal ity 301 H (285-295) mOsm/k g Calcium 9.4 (8.5-10.5) mg/dL Total Bilirubin 0.9 (0.15-1.2) mg/dL AST 9 (0-32) U/L ALT 12 (0-33) U/L Alkaline Phosphata se 77 (35-105) IU/L Troponin T Baselin e 16 H (0-10) ng/L Troponin T 120 Min [place] (0-10) ng/L Delta Troponin T (0-10) ABS# NT-Pro-B Natriuret Pep 175 H (0-125) pg/mL Total Protein 6.6 (6.6-8.7) g/dL Albumin 4.0 (3.5-5.2) g/dL Globulin 2.6 (1.3-4.6) g/dL Procalcitonin (0-0.5) ng/mL 07/23/20 07/23/20 Range/Units 09:38 11:32 WBC (4.0-10.0) 10^3/ uL RBC (4.1-5.3) 10^6/u L Hgb (11.5-15.3) g/dL Hct (37.0-47.0) % MCV (81-99) fL MCH (28.0-34.0) pg MCHC (30.0-36.0) g/dL RDW (12.1-15.1) % Plt Count (130-400) 10^3/c mm MPV (7.4-10.4) fL Neut % (Auto) % Lymph % (Auto) % Ellis % (Auto) % Eos % (Auto) % Baso % (Auto) % Neut # (Auto) (1.8-7.7) 10^3/u L Lymph # (Auto) (0.8-4.8) 10^3/u L Ellis # (Auto) (0.2-0.9) 10^3/u L Eos # (Auto) (0.0-0.8) 10^3/u L Baso # (Auto) (0.0-0.1) 10^3/u L Nucleated RBC % (a uto) % Nucleated RBCs # /100WBC Sodium (136-145) mmol/L Potassium (3.5-5.1) mmol/L Chloride (98-107) mmol/L Carbon Dioxide (22-29) mmol/L Anion Gap (5-19) BUN (8-23) mg/dL Creatinine (0.5-0.9) mg/dL GFR Calculation Glucose (65-115) mg/dL Calculated Osmolal ity (285-295) mOsm/k g Calcium (8.5-10.5) mg/dL Total Bilirubin (0.15-1.2) mg/dL AST (0-32) U/L ALT (0-33) U/L Alkaline Phosphata se (35-105) IU/L Troponin T Baselin e (0-10) ng/L Troponin T 120 Min [place] 140.7 H (0-10) ng/L Delta Troponin T 124.7 H* (0-10) ABS# NT-Pro-B Natriuret Pep (0-125) pg/mL Total Protein (6.6-8.7) g/dL Albumin (3.5-5.2) g/dL Globulin (1.3-4.6) g/dL Procalcitonin 0.08 (0-0.5) ng/mL Discharge Plan Discharge Patient Disposition: Admitted As Inpatient Admit Provider: Brenden Chowdhury Clinical Impression: Non-ST elevation OK (NSTEMI) Condition: Stable Coding Level of Care Code ED Closing Supervisor for Chg Fwd Exam Comprehensive
[2020-07-23 09:58] LABS: Basophils # 0.1 10^3/uL (0.0-0.1); Basophils % 0.4 %; Eosinophils % 0.2 %; Hematocrit 44.5 % (37.0-47.0); Hemoglobin 13.3 g/dL (11.5-15.3); Lymphocytes % 6.6 %; Mean Corpuscular HGB Conc 29.9 g/dL (30.0-36.0); Mean Corpuscular Hemoglobin 25.8 pg (28.0-34.0); Mean Corpuscular Volume 86.4 fL (81-99); Mean Platelet Volume 9.8 fL (7.4-10.4); Monocytes # 0.8 10^3/uL (0.2-0.9); Monocytes % 4.9 %; Neutrophils # 13.63 10^3/uL (1.8-7.7); Neutrophils % 87.3 %; Nucleated Red Blood Cells % 0 %; Platelet Count 334 10^3/cmm (130-400); Red Blood Count 5.15 10^6/uL (4.1-5.3); Red Cell Distribution Width 18.1 % (12.1-15.1); White Blood Count 15.6 10^3/uL (4.0-10.0)
[2020-07-23 10:11] LABS: Troponin(5th) Baseline 16 ng/L (0-10)
[2020-07-23 10:21] LABS: Alanine Aminotransferase 12 U/L (0-33); Alkaline Phosphatase 77 IU/L (35-105); Anion Gap 15.7 (5-19); Aspartate Amino Transferase 9 U/L (0-32); Blood Urea Nitrogen 12 mg/dL (8-23); Calcium 9.4 mg/dL (8.5-10.5); Carbon Dioxide 33 mmol/L (22-29); Chloride 99 mmol/L (98-107); Globulin 2.6 g/dL (1.3-4.6); Glucose 149 mg/dL (65-115); NT Pro B Type Natriuretic Pept 175 pg/mL (0-125); Osmolality Calculated 301 mOsm/kg (285-295); Potassium 3.7 mmol/L (3.5-5.1); Sodium 144 mmol/L (136-145); Total Bilirubin 0.9 mg/dL (0.15-1.2); Total Protein 6.6 g/dL (6.6-8.7)
--- NOTE | 2020-07-23 11:42 | ECG_ITS ---
[facility] Test Date: 2020-07-23 Pat Name: Lauren Jose Department: Room: Gender: Female Sfdc Architect: : 1945 Requested By: Bijan Tovar Order Number: [id number] Espinoza MD: Georgia Brewer M.D. Measurements Intervals [place] Rate: 79 P: 2 FL: 205 QRS: -2 QRSD: 121 T: 69 QT: 403 QTc: 462 Interpretive Statements SINUS RHYTHM WITH OCCASIONAL SUPRAVENTRICULAR PREMATURE COMPLEXES MODERATE INTRAVENTRICULAR CONDUCTION DELAY MODERATE T-WAVE ABNORMALITY, CONSIDER ANTERIOR ISCHEMIA Compared to ECG 07/23/2020 10:00:28 Sinus arrhythmia no longer present T-wave abnormality still present Possible ischemia still present Electronically Signed On 07-23-2020 20:54:38 MERCHANDISING ASSISTANT by Georgia Brewer M.D. [id number] alicdes
[2020-07-23 12:23] LABS: Troponin 5 2HR 140.7 ng/L (0-10); Troponin 5 2HR Delta 124.7 ABS# (0-10)
--- NOTE | 2020-07-23 12:55 | CT_ITS ---
WS: [id number] CT ABDOMEN PELVIS TECHNIQUE: Noncontrast CT of the abdomen and pelvis with coronal and sagittal reformatted images. CLINICAL INFORMATION: abdominal tenderness COMPARISON: CT April 26, 2019 DLP: 1202.[address] scans at [facility] use at least one of these dose optimization techniques: automat ed exposure control; mA and/or kV adjustment per patient size (includes targeted exams where dose is matched to clinical indication); or iterative reconstruction. FINDINGS: Noncontrast liver is normal. Prior cholecystectomy. Noncontrast spleen is normal. Normal GE junction. Trace left pleural fluid. Slight atelectasis left lower lobe. Adrenal glands are normal. Incidental left renal cyst. Noncontrast pancreas is unremarkable. Normal caliber abdominal aorta. Aortic calcifi cation. No hydronephrosis in either kidney. Both ureters are decompressed. Normal sigmoid colon. No evidence of small or large bowel obstruction. No free fluid in the abdomen or pelvis. No abdominal lymphadenop athy. No pelvic or inguinal lymphadenopathy. Prior postoperative changes laminectomy defects L4-5 and L5-S1. Dorsal spinal catheter. Incidental fat-containing inguinal hernia. CT/CT abdomen pelvis wo con [id number] IMPRESSION: 1. No acute abdominal or pelvic findings. 2. Prior cholecystectomy. 3. Trace left pleural fluid. 4. No evidence of high-grade small or large bowel obstruction. 5. No abdominal or pelvic lymphadenopathy. 6. Diverticulosis. Notified Dr. Hunt at 07/23/2020 1:31 PM.
[2020-07-23] MEDS: aspirin 325 mg Tablet PO (13:26)
[2020-07-23] MEDS: nitroglycerin 0.4 mg sublingual Tablet SUBLINGUAL (13:27)
[2020-07-23] MEDS: nitroglycerin drip 50 MG/250 ML PREMIX IV (13:28)
[2020-07-23] MEDS: clopidogrel 300 mg Tablet 600 MG PO (13:34)
--- NOTE | 2020-07-23 13:44 | XACV_ITS ---
Ht: 152 cm Wt: 108 kg BSA: 2.21 m2 Gender: Female : 1945 Any Known Allergies: No known allergies Exam Priority: Routine Procedure(s): Procedure Description: Diagnostic procedure Procedure Description: Coronary Angiography Procedure Description: Left heart cath Diagnostic Cath Status: Urgent Diagnostic Findings * LM has luminal irregularities. * LAD arises from left main artery. There are diffuse luminal irregularities however no significant stenosis is noted.. * CX is the dominant vessel. It gives rise to 2 large OM branches. No significant stenosis is noted in the left circumflex system. * RCA is nondominant vessel. mRCA: Moderate 60% stenosis, RICH: 3 flow. * Coronary angiography shows left dominance. Conclusions 1. Nonobstructive coronary artery disease. 2. Significantly elevated LVEDP. 3. Likely Takotsubo cardiomyopathy versus myocarditis. Given patient's very high LVEDP ventriculography was not performed. Will need echocardiogram. 4. There is moderate coronary artery disease with one vessel disease. Recommendations * Admit to ICU. * IV diuresis is needed. * Continue aspirin and Plavix. * Order echocardiogram. Interventional RX Recommendation: medical therapy and/or counseling Anticoagulation: Heparin LV EDP: 38 mmHg Pressures Phase:Rest AO : 110 / 79 ( 95 ) @ 8:20:00 AM 167 / 84 ( 115 ) @ 8:29:00 AM 165 / 81 ( 108 ) @ 8:29:00 AM LV : 188 / 0 / @ 8:28:00 AM 186 / -1 / @ 8:29:00 AM 191 / -1 / @ 8:29:00 AM Valves Phase:DefaultPhase AV : 29.0 @ 2:41:13 PM AV Mean Gradient: 16.0 @ 2:41:13 PM Clinical Evaluation EBL: 5mL-10mL Procedural Details Procedure Consent Obtained. Current Diagnosis : STEMI. Pre-Procedure Time Out. Identified patient by full name and date of as verbalized by the patient/guarantor. Does the consent match the physician's order: N/A Emergent; Informed Consent not obtained due to time critical life threat. Accurate & Complete Informed Consent: Yes. Inpatient/Outpatient History & Physical on Chart: N/A Emergent; Informed Consent not obtained due to time critical life threat. If H&P is completed, is and addenduem needed: N/A Emergent; Informed Consent not obtained due to time critical life threat; If yes, is the addendum complete: N/A Emergent; Informed Consent not obtained due to time critical life threat. Visualize and Verify Site with Patient/Guarantor: N/A. Relevant Radiology Images available: N/A Emergent; Informed Consent not obtained due to time critical life threat. Pre-op teaching completed and patient verbalized understanding. The risks, benefits, and alternatives of sedation and/or procedure were discussed by physician. The patient agrees to continue. Procedure started. Correct patient, site and procedure confirmed by cath team. Current diagnosis: STEMI. PERRLA. Strong, equal hand intake rn bilaterally. Lungs clear x 5 lobes. IV Site on Arrival: 20 gauge in the right anticubital. IV Fluids: 0.9% NaCl at KVO. 0 mL infused prior to technical laboratory asst. Pre Procedural Pulses: bilateral dorsalis pedis was 2+. Pre Procedural Pulses: bilateral posterior tibial was 2+. Pre Procedural Pulses: bilateral radial was 2+. Oxygen started at 2liters/min via nasal canula. bilateral groins was prepped with chloroprep then draped in the usual sterile fashion. right radial was prepped with chloroprep then draped in the usual sterile fashion. Physician notified. Dr. Chowdhury notified. Baseline sample Acquired. HR: 107 BPM. Equipment: 6F - Femoral. Cardiac Cath Pack. ACIST Manifold Kit Model BT 2000. Heparinized Saline (2 units/mL), 1000 mL bag. Physician arrived. Physician scrubbed in. Immediate Pre-Procedure Time Out. Correct Patient: Yes; Correct Procedure: Yes; Correct Site: Yes; Correct Patient Position: Yes; Correct Supplies: Yes; Dried Flammable Prep: Yes; Blood Products Available: No;. Lidocaine 1% infiltrated to the right radial. Arterial access obtained. Patient on a nitro drip at 5mcg. A 6 danish TIG catheter in over wire. Multiple views taken of left coronary artery. Catheter redirected to the RCA. Multiple views taken of right coronary artery. EDP Sample taken: LV 188/-1,37; HR: 105 BPM; SpO2: Off%. EDP Sample taken: LV 186/-2,40; HR: 104 BPM; SpO2: Off%. Pullback taken: LV 191/-2,43; AO 167/84(115); Mean: 16mmHg, Peak to Peak: 29mmHg, SEP: 27sec/min; HR: 118 BPM; SpO2: Off%. Catheter out. A TR Band was successful obtaining hemostatsis at the Right Radial artery insertion site. Post Procedure: Pulses reassessed and unchanged. PERRLA. Strong, equal hand intake rn bilaterally. No VTE prophylaxis required. Medication's Wasted: Lidocaine 1% = 18 mL. Medication's Wasted: Nitro = 49.6 mg. Medication's Wasted: Heparin = 2000 units. Medication's Wasted: Other = Versed 1 mg. Total IV fluids: 75 mL. Contrast type used: Omnipaque 300 mgI/mL, 500 mL bottle. Post-op diagnosis: Non obstructive CAD. Complications: None. Estimated blood loss: 5mL-10mL. Procedure completed. Vital chart was stopped. Patient transferred by bed to ICU. Access Site Site: Right Radial artery Sheath Size: 6 Fr Hemostasis Method: TR Band Hemostasis Success: Successful Procedure Medications Start: 1:57 PM Stop: 1:57 PM Medication: Fentanyl Amount: 50 mcg Route: I.V. Start: 2:09 PM Stop: 2:09 PM Medication: Fentanyl Amount: 50 mcg Route: I.V. Start: 2:12 PM Stop: 2:12 PM Medication: Versed Amount: 1 mg Route: I.V. Start: 2:13 PM Stop: 2:13 PM Medication: Heparin Amount: 4000 units Route: I.V. Start: 2:16 PM Stop: 2:16 PM Medication: Nitrogylcerin Amount: 200 mcg Route: I.A. Start: 2:18 PM Stop: 2:18 PM Medication: Versed Amount: 1 mg Route: I.V. Start: 2:22 PM Stop: 2:22 PM Medication: Nitrogylcerin Amount: 200 mcg Route: I.C. I, the attending physician, have reviewed and verified all procedure medications. Yes, all medications given per verbal order History/Risk Factors Hypertension: Yes Dyslipidemia: No Peripheral Arterial Disease (PAD): No Myocardial Infarction (OR): No Obesity: Yes Renal Disease: No Prior Interventions PCI: No CABG: No Valve Surgery: No Report Signatures Finalized by Brenden Chowdhury MD on 07/29/2020 11:44 AM
--- NOTE | 2020-07-23 14:48 | PM.CONSULT ---
Providers/Reason For Consult Consulting Physican/Specialty*: Brenden Chowdhury MD/Cardiology Reason for Consult*: NSTEMI Attending Physician: Brenden Chowdhury M.D Primary Care Provider: Nazia Jha History of Present Illness History of Present Illness 75-year-old female who comes to the ED with some shortness of breath, abdominal pain and chest pain. Patient has a past medical history of COPD, diabetes, hypertension, hyperlipidemia and GERD. Patient is currently on 3 L of oxygen at home. She states her shortness of breath is a chronic issue and this morning she feels like she was having some increased shortness of breath, abdominal pain with some chest pain on the left side. Her initial troponin was 60 and the trended up to 140. EKG showed dynamic ST-T wave changes in anterior leads. Patient is a poor historian and assess her pain was not resolving on nitro drip, she was brought to [facility]. Coronary angiography shows patent coronary arteries. She has a nondominant RCA which has mid 50 to 60% stenosis. LAD and left circumflex artery are patent. LVEDP was elevated. Review of Systems Narrative: CONSTITUTIONAL: No fever chills weight loss or gain or night sweats. [] HEENT: Normocephalic, atraumatic.[] RESPIRATORY: No cough, sputum, hemoptysis or wheezing.[] CARDIOVASCULAR: Shortness of breath and chest pain, no PND, orthopnea, lower extremity edema, presyncope or syncope. 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 [] MUSCULOSKELETAL: No knee or joint pain or rashes. [] Meds/Allergies Home Medications and Allergies Home Medications Medication Instructions Recorded Confirmed Last Taken Type atorvastatin 20 mg tablet 20 mg PO DAILY@09/30/19 07/23/20 07/23/20 History canagliflozin 300 mg tablet 300 mg PO DAILY@09/30/19 07/23/20 07/22/20 History clopidogrel 75 mg tablet 75 mg PO DAILY@09/30/19 07/23/20 07/22/20 History furosemide 80 mg tablet 160 mg PO DAILY@09/30/19 07/23/20 07/22/20 History trazodone 150 mg tablet 150 mg PO BEDTIME PRN tab 09/30/19 07/23/20 06/10/20 History Januvia 100 mg PO DAILY@03/19/20 07/23/20 07/22/20 History buspirone 15 mg PO BID@03/19/20 07/23/20 07/22/20 History duloxetine 60 mg PO DAILY@08 03/19/20 07/23/20 07/22/20 History esomeprazole magnesium 40 mg PO DAILY@03/19/20 07/23/20 07/22/20 History carvedilol 3.125 mg PO Q12H #60 tab 03/22/20 07/23/20 07/22/20 Rx albuterol sulfate [ProAir HFA] 2 puff INHALATION Q6H PRN 06/11/20 07/23/20 06/11/20 History losartan 50 mg PO DAILY@06/11/20 07/23/20 07/22/20 History metformin 1,000 mg PO BID@06/11/20 07/23/20 07/23/20 History ondansetron HCl [Zofran] 4 mg PO Q6H PRN #20 tab 06/11/20 07/23/20 Unknown Rx pioglitazone 30 mg PO DAILY@06/11/20 07/23/20 07/22/20 History hydroxyzine pamoate 12.5 mg PO BID PRN 07/23/20 07/23/20 Unknown History lisinopril 2.5 mg PO DAILY@07/23/20 07/23/20 07/22/20 History pregabalin 100 mg PO TID@07/23/20 07/23/20 07/22/20 History sucralfate [Carafate] 1 g PO BID@07/23/20 07/23/20 07/22/20 History umeclidinium-vilanterol [Anoro 1 inh INHALATION BID@07/23/20 07/23/20 07/22/20 History Ellipta] Allergies Allergy/AdvReac Type Severity Reaction Status Date / Time No Known Allergies Allergy Verified 06/11/20 16:16 Current Medications Current Medications Generic Name Dose Route Start Last Admin Trade Name Freq PRN Reason Stop Dose Admin Nitroglycerin/Dextrose 50 mg in 250 mls @ 0 mls/hr 07/23/20 13:00 07/23/20 13:28 Nitroglycerin Drip IV 5 mcg/min .Q0M MAYCO 1.5 mls/hr Administration Protocol Per Protocol PFSH Acute PFSH: Medical History Carpal tunnel syndrome on both sides Chronic radicular low back pain COPD (chronic obstructive pulmonary disease) CVA (cerebral vascular accident) Depression with anxiety Diabetes Encounter for long-term use of opiate analgesic GERD (gastroesophageal reflux disease) History of CHF (congestive heart failure) History of GI bleed Hypertension Low back pain Opioid contract exists Smokeless tobacco use Surgical History H/O knee surgery History of knee replacement History of lumbar surgery Also history of spinal cord stimulator, currently not functioning History of shoulder surgery Family History Other CAD (coronary artery disease) Hypertension Stroke Denies family history of Anesthesia complication Bleeding disorder Social History Smoking and tobacco status: current every day smoker smokeless tobacco Alcohol intake: never Vitals/I&O/Wt Last Vital Signs Temp 99.5 F 07/23/20 09:27 Pulse 85 07/23/20 13:46 Resp 24 H 07/23/20 13:46 BP 149/89 07/23/20 13:46 Pulse Ox 94 07/23/20 13:46 Weight last 48 hrs Weight 238 lb Physical Exam Narrative: EXAM NARRATIVE: GENERAL: Patient is alert, awake and oriented x3. [] NECK: No jugular vein distension. [] HEENT: No cyanosis. No icterus. No pallor. [] HEART: Tachycardia. No murmur, rub or gallop. [] LUNGS: Clear to auscultate bilaterally. [] ABDOMEN: Soft, nontender and nondistended. Positive bowel sounds. No guarding, rebound or tenderness. [] CENTRAL NERVOUS SYSTEM: Grossly nonfocal. [] EXTREMITIES: Lower extremities with 1+ edema bilaterally. Pulses palpable in the lower extremities, both dorsalis pedis and posterior tibial. [] A&P Assessment and plan (1) Non-ST elevation [place] (NSTEMI): Status: Acute (2) COPD (chronic obstructive pulmonary disease): Status: Acute (3) Hypertension: Status: Acute (4) Diabetes: Status: Acute On coronary angiography, there is no severe coronary artery disease. Her troponin elevation in setting of tachycardia, mild fever and elevated WBC count is likely secondary to demand ischemia. Her LVEDP is significantly elevated. We will recommend echocardiogram. Would be reasonable to rule out pulmonary embolism. Hospitalist service will admit patient for further work-up possible underlying infection. Continue aspirin. Blood pressure control. Cardiology will continue to follow. Please call with questions. 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
[2020-07-23] MEDS: acetaminophen 325 mg Tablet 650 MG PO (15:19)
--- NOTE | 2020-07-23 15:22 | PC.NURSE ---
admission Patient arrived from research laboratory manager at 1445. patient alert and oriented. vital signs WNL. patient currently on 3L NC which is baseline at home. Nitro gtt and IVF stopped and unhooked by fish hatchery laborer prior to patient arrival. Oral temperature of 100.2. Tylenol given to patient, see MAR. patient has slight coughing episode after taking oral medications. educated patient on NPO status. right radial TR band in place with 17ml of air. no blood leaking noted around site. 3+ pulses noted in ALL extremities. call light given to patient. no needs at this time.
--- NOTE | 2020-07-23 15:42 | ECG_ITS ---
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 Measurements Intervals [place] Rate: 84 P: 26 ME: 158 QRS: -34 QRSD: 119 T: 37 QT: 380 QTc: 450 Interpretive Statements SINUS RHYTHM MARKED LEFT AXIS DEVIATION [QRS AXIS < -30] INCOMPLETE RIGHT BUNDLE BRANCH BLOCK LEFT VENTRICULAR HYPERTROPHY AND ST-T CHANGE Compared to ECG 07/23/2020 11:21:17 Left-axis deviation now present Incomplete right bundle-branch block now present Left ventricular hypertrophy now present ST (T wave) deviation now present Intraventricular conduction delay no longer present T-wave abnormality no longer present Possible ischemia no longer present Electronically Signed On 07-23-2020 21:00:40 SENIOR INTEGRATION DEVELOPER by Georgia Brewer M.D. [id number]
[2020-07-23 16:40] LABS: Troponin 5 6HR 759.2 ng/L (0-10); Troponin 5 6HR Delta 743.2 ng/L (0-12)
--- NOTE | 2020-07-23 17:23 | PM.CONSULT ---
Providers/Reason For Consult Consulting Physican/Specialty*: Probably home tomorrow Reason for Consult*: Medical management after cardiac catheterization Attending Physician: Brenden Chowdhury M.D Primary Care Provider: Nazia Jha History of Present Illness History of Present Illness Lauren Jose is a 75 year old female with past medical history of COPD, chronic oxygen needs, diabetes, hypertension, GERD, possible CHF who underwent cardiac catheterization by Dr. Chowdhury. The patient was evaluated by him in the emergency room due to cardiac complaints and was found to have ischemic changes in anterior leads with mild elevation of the troponin. Cardiac catheterization revealed a nondominant RCA which has mid 50 to 60% stenosis. LAD and left circumflex artery are patent. LVEDP was elevated. No PCI or stent placement was performed. Dr. Chowdhury recommended conservative management. I was kindly asked by Dr. Chowdhury to participate in treatment of this patient and manage her medical conditions during this hospitalization. Currently the patient is in ICU for observation. She is still lethargic from anesthesia. She denies any chest pain. Denies shortness of breath. No nausea or vomiting. No palpitations. Denies chills. Her vital signs revealed mild fever. She also has mild leukocytosis. Chest x-ray was clear. UA was not done. She denies any dysuria or back pain. Review of Systems General: Reports: 10 or more systems reviewed and unremarkable except in HPI and below Meds/Allergies Home Medications and Allergies Home Medications Medication Instructions Recorded Confirmed Last Taken Type atorvastatin 20 mg tablet 20 mg PO DAILY@09/30/19 07/23/20 07/23/20 History canagliflozin 300 mg tablet 300 mg PO DAILY@09/30/19 07/23/20 07/22/20 History clopidogrel 75 mg tablet 75 mg PO DAILY@09/30/19 07/23/20 07/22/20 History furosemide 80 mg tablet 160 mg PO DAILY@09/30/19 07/23/20 07/22/20 History trazodone 150 mg tablet 150 mg PO BEDTIME PRN tab 09/30/19 07/23/20 06/10/20 History Januvia 100 mg PO DAILY@03/19/20 07/23/20 07/22/20 History buspirone 15 mg PO BID@03/19/20 07/23/2007/22/20 History duloxetine 60 mg PO DAILY@03/19/20 07/23/20 07/22/20 History esomeprazole magnesium 40 mg PO DAILY@03/19/20 07/23/20 07/22/20 History carvedilol 3.125 mg PO Q12H #60 tab 03/22/20 07/23/20 07/22/20 Rx albuterol sulfate [ProAir HFA] 2 puff INHALATION Q6H PRN 06/11/20 07/23/20 06/11/20 History losartan 50 mg PO DAILY@06/11/20 07/23/20 07/22/20 History metformin 1,000 mg PO BID@06/11/20 07/23/20 07/23/20 History ondansetron HCl [Zofran] 4 mg PO Q6H PRN #20 tab 06/11/20 07/23/20 Unknown Rx pioglitazone 30 mg PO DAILY@06/11/20 07/23/20 07/22/20 History hydroxyzine pamoate 12.5 mg PO BID PRN 07/23/20 07/23/20 Unknown History lisinopril 2.5 mg PO DAILY@07/23/20 07/23/20 07/22/20 History pregabalin 100 mg PO TID@07/23/20 07/23/20 07/22/20 History sucralfate [Carafate] 1 g PO BID@07/23/20 07/23/20 07/22/20 History umeclidinium-vilanterol [Anoro 1 inh INHALATION BID@07/23/20 07/23/20 07/22/20 History Ellipta] Allergies Allergy/AdvReac Type Severity Reaction Status Date / Time No Known Allergies Allergy Verified 06/11/20 16:16 Current Medications Current Medications Generic Name Dose Route Start Last Admin Trade Name Freq PRN Reason Stop Dose Admin Acetaminophen 650 mg 07/23/20 14:58 07/23/20 15:19 Acetaminophen 325 Mg Tablet PO 650 mg Q6H PRN Administration MILD PAIN Nitroglycerin/Dextrose 50 mg in 250 mls @ 0 mls/hr 07/23/20 13:00 12/21/20 15:21 Nitroglycerin Drip IV 0 mcg/min .Q0M MAYCO 0 mls/hr Titration Protocol Per Protocol PFSH Acute PFSH: Medical History Carpal tunnel syndrome on both sides Chronic radicular low back pain COPD (chronic obstructive pulmonary disease) CVA (cerebral vascular accident) Depression with anxiety Diabetes Encounter for long-term use of opiate analgesic GERD (gastroesophageal reflux disease) History of CHF (congestive heart failure) History of GI bleed Hypertension Low back pain Opioid contract exists Smokeless tobacco use Surgical History H/O knee surgery History of knee replacement History of lumbar surgery Also history of spinal cord stimulator, currently not functioning History of shoulder surgery Family History Other CAD (coronary artery disease) Hypertension Stroke Denies family history of Anesthesia complication Bleeding disorder Social History Smoking and tobacco status: current every day smoker smokeless tobacco Alcohol intake: never Vitals/I&O/Wt Last Vital Signs Temp 100.2 F H 07/23/20 15:00 Pulse 97 07/23/20 16:00 Resp 22 H 07/23/20 16:00 BP 129/78 07/23/20 16:00 Pulse Ox 96 07/23/20 16:00 07/23/20 07/23/20 07/23/20 06:59 14:59 22:59 Intake Total 2.825 / 2.825 Balance 2.825 / 2.825 Weight last 48 hrs Weight 105.233 kg Weight 107.955 kg Physical Exam Narrative: EXAM NARRATIVE: Patient is lethargic due to sedation. Responses are mainly adequate. No acute distress. Mood and affect are appropriate. Skin is warm and dry. Mycelex denies. Neck supple. No JVD Eyes Harpal, extraocular muscles are intact Lungs are clear. No respiratory distress Heart S1, S2, regular Abdomen soft, obese, nontender, bowel sounds are present Extremities severe bilateral pedal edema, chronic venous stasis changes, no redness or hyperemia, no peripheral cyanosis Moves all extremities. Data Labs: Other Labs: Laboratory Results WBC 15.6 10^3/uL (4.0 -10.0) H 07/23/20 09:38 RBC 5.15 10^6/uL (4.1 -5.3) 07/23/20 09:38 Hgb 13.3 g/dL (11.5-1 5.3) 07/23/20 09:38 Hct 44.5 % (37.0-47.0 ) 07/23/20 09:38 MCV 86.4 fL (81-99) 07/23/20 09:38 MCH 25.8 pg (28.0-34. 0) L 07/23/20 09:38 MCHC 29.9 g/dL (30.0-3 6.0) L 07/23/20 09:38 RDW 18.1 % (12.1-15.1 ) H 07/23/20 09:38 Plt Count 334 10^3/cmm (130 -400) 07/23/20 09:38 MPV 9.8 fL (7.4-10.4) 07/23/20 09:38 Neut % (Auto) 87.3 % 07/23/20 09:38 Lymph % (Auto) 6.6 % 07/23/20 09:38 [place] % (Auto) 4.9 % 07/23/20 09:38 Eos % (Auto) 0.2 % 07/23/20 09:38 Baso % (Auto) 0.4 % 07/23/20 09:38 Neut # (Auto) 13.63 10^3/uL (1. 8-7.7) H 07/23/20 09:38 Lymph # (Auto) 1.0 10^3/uL (0.8- 4.8) 07/23/20 09:38 [place] # (Auto) 0.8 10^3/uL (0.2- 0.9) 07/23/20 09:38 Eos # (Auto) 0.0 10^3/uL (0.0- 0.8) 07/23/20 09:38 Baso # (Auto) 0.1 10^3/uL (0.0- 0.1) 07/23/20 09:38 Nucleated RBC % (a uto) 0 % 07/23/20 09:38 Nucleated RBCs # 0.0 /100WBC 07/23/20 09:38 Sodium 144 mmol/L (136-1 45) 07/23/20 09:38 Potassium 3.7 mmol/L (3.5-5 .1) 07/23/20 09:38 Chloride 99 mmol/L (98-107 ) 07/23/20 09:38 Carbon Dioxide 33 mmol/L (22-29) H 07/23/20 09:38 Anion Gap 15.7 (5-19) 07/23/20 09:38 BUN 12 mg/dL (8-23) 07/23/20 09:38 Creatinine 0.6 mg/dL (0.5-0. 9) 07/23/20 09:38 GFR Calculation Not Reportable 07/23/20 09:38 Glucose 149 mg/dL (65-115 ) H 07/23/20 09:38 Calculated Osmolal ity 301 mOsm/kg (285- 295) H 07/23/20 09:38 Calcium 9.4 mg/dL (8.5-10 .5) 07/23/20 09:38 Total Bilirubin 0.9 mg/dL (0.15-1 .2) 07/23/20 09:38 AST 9 U/L (0-32) 07/23/20 09:38 ALT 12 U/L (0-33) 07/23/20 09:38 Alkaline Phosphata se 77 IU/L (35-105) 07/23/20 09:38 Troponin T Baselin e 16 ng/L (0-10) H 07/23/20 09:38 Troponin T 120 Min jena 140.7 ng/L (0-10) H 07/23/20 11:32 Delta Troponin T 124.7 ABS# (0-10) H* 07/23/20 11:32 Troponin T Hi Sens 6Hr 759.2 ng/L (0-10) H 07/23/20 15:35 Troponin T Hi Sens 6Hr Delta 743.2 ng/L (0-12) H* 07/23/20 15:35 NT-Pro-B Natriuret Pep 175 pg/mL (0-125) H 07/23/20 09:38 Total Protein 6.6 g/dL (6.6-8.7 ) 07/23/20 09:38 Albumin 4.0 g/dL (3.5-5.2 ) 07/23/20 09:38 Globulin 2.6 g/dL (1.3-4.6 ) 07/23/20 09:38 Impressions Chest X-Ray 07/23/20 09:42 IMPRESSION: Marked enlargement of the heart is similar to prior studies. Mild CHF, progressed since the prior study. Abdomen/Pelvis CT 07/23/20 12:55 IMPRESSION: 1. No acute abdominal or pelvic findings. 2. Prior cholecystectomy. 3. Trace left pleural fluid. 4. No evidence of high-grade small or large bowel obstruction. 5. No abdominal or pelvic lymphadenopathy. 6. Diverticulosis. Notified Dr. Hunt at 07/23/2020 1:31 PM. A&P Additional A&P Information 75-year-old female with past medical history of COPD, chronic oxygen need, diabetes and hypertension, GERD, possible CHF who underwent cardiac catheterization for abnormal EKG and elevated troponin. Coronary artery disease. Medical management is recommended. We will continue current heparin drip, home Plavix, beta-yokasta and atorvastatin. We will check her fasting lipids in the morning. History of CHF. We will continue her home medications including furosemide which I will switch to IV for now. History of COPD. We will continue home medications. We will continue supplemental oxygen. No evidence of acute exacerbation at this time. History of hypothyroidism. Continue home medication. Check TSH. Leukocytosis and fever. No evidence of infection based on initial evaluation. Chest x-ray is clear. I will order UA and Doppler ultrasound of the lower extremities due to swelling. I will order procalcitonin level. No antibiotics at this time. We will recheck her CBC in the morning. Hypertension. Well-controlled currently. Continue home medications. Diabetes. We will hold pioglitazone and Metformin. Will add insulin sliding scale. The plan of care was discussed with the patient. She verbalized understanding and agreement. Thank you very much for allowing me to participate in treatment of this patient. 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
--- NOTE | 2020-07-23 17:32 | USCV_ITS ---
Lauren Jose Age: 75 Gender: F : 1945 Exam Date: 07/23/2020 17:53 Ordering Phys: Ignacio Dowell MD Technologist: Carly Zuluaga Exam Location: [facility] [place] Indication: Swelling HISTORY: Lower extremity swelling. PROCEDURES: Venous duplex imaging was performed in bilateral lower extremities. The following venous structures were evaluated: common femoral vein, profunda vein, proximal portion of the greater saphenous vein, superficial femoral vein, and the popliteal vein. In addition, the posterior tibial and peroneal trunk were evaluated. FINDINGS: Normal 2-D Doppler and augmentation and compressibility throughout the lower extremity venous structures. Additional imaging through the proximal calf veins also reveals no thrombus. Limited evaluation of the greater saphenous vein is patent with no thrombus. CONCLUSIONS No DVT bilateral lower extremities. Dr. Bria Ricci DO (Electronically Signed) Final Date: 24 July 2020 09:04 S
[2020-07-23] MEDS: FUROsemide 10 mg/mL SDV 4mL 40 MG IVP (17:33)
[2020-07-23] MEDS: carvedilol 3.125 mg Tablet PO (17:34)
[2020-07-23 17:37] LABS: Glucose Point of Care 155 mg/dL (70-110)
[2020-07-23 18:22] LABS: Procalcitonin 0.08 ng/mL (0-0.5)
[2020-07-23 19:04] LABS: Add Urine Microscopic? NO
[2020-07-23 19:41] LABS: Urine Appearance Clear (CLEAR); Urine Color Straw (Yellow)
[2020-07-23 19:42] LABS: Bilirubin Urine Neg (Negative); Blood Urine Neg (Negative); Glucose Urine UA 4+ (Normal); Ketones Urine Negative (Negative); Leukocyte Esterase Urine Negative (Negative); Nitrate Urine Negative (Negative); Protein Urine Neg (Negative); Specific Gravity, Urine 1.005 (1.005-1.030); Urobilinogen Urine Norm (Negative); pH Urine 5 (5-7)
[2020-07-23 20:00] LABS: Glucose Point of Care 136 mg/dL (70-110)
[2020-07-23] MEDS: sucralfate 1 gm Tablet PO (20:00)
[2020-07-23] MEDS: pregabalin 100 mg Capsule PO (20:00)
[2020-07-23] MEDS: ALPRAZolam 0.25 mg Tablet PO (21:08)
[2020-07-23] MEDS: morphine 4 mg/mL SDV 1 mL IVP (21:20)
[2020-07-23] MEDS: trazodone 150 mg Tablet PO (21:21)
[2020-07-24] VITALS (23 sets, daily range): BP systolic 98–155; BP diastolic 41–90; PULSE 60–87; RESP 11–23; TEMP 36.6–37.1; O2SAT 91–97
--- NOTE | 2020-07-24 05:00 | USCV_ITS ---
Lauren Jose Age: 75 Gender: F : 1945 Exam Date: 07/24/2020 08:10 Ordering Phys: Brenden Chowdhury M.D ([email or web address]) Technologist: Destin Doe Exam Location: [facility] [place] Indication: NSTEMI BP: 115 / 65 HR: 73 Rhythm: Sinus Technical Quality: Adequate MEASUREMENTS (Male / Female) Normal Values 2D ECHO LV Diastolic Diameter PLAX 5.0 cm 4.2 - 5.9 / 3.9 - 5.3 cm LV Systolic Diameter PLAX 2.5 cm IVS Diastolic Thickness 1.3 cm 0.6 - 1.0 / 0.6 - 0.9 cm IVS Systolic Thickness 1.9 cm LVPW Diastolic Thickness 1.1 cm 0.6 - 1.0 / 0.6 - 0.9 cm LVPW Systolic Thickness 1.7 cm LVOT Diameter 2.0 cm LV Ejection Fraction 2D Teich 80.7 % LV Ejection Fraction MOD 2C 58.5 % LV Ejection Fraction 2C AL 58.9 % LA Diameter 3.7 cm LA Width 4.0 cm LA Height 4.0 cm RA Width 3.6 cm RA Height 4.4 cm Aorta at Sinotubular Diameter 2.6 cm M-MODE LV Diastolic Diameter MM 4.6 cm 4.2 - 5.9 / 3.9 - 5.3 cm LV Systolic Diameter MM 2.5 cm LV Ejection Fraction MM Teich 77.6 % IVS Diastolic Thickness MM 1.8 cm 0.6 - 1.0 / 0.6 - 0.9 cm IVS Systolic Thickness MM 2.1 cm LVPW Diastolic Thickness MM 1.5 cm 0.6 - 1.0 / 0.6 - 0.9 cm LVPW Systolic Thickness MM 3.1 cm Aortic Annulus Diameter 2.8 cm LA Ao Ratio MM 1.6 MV E Point Septal Separation 1.2 cm DOPPLER AV Peak Velocity 223.0 cm/s LVOT Peak Velocity 107.0 cm/s AV Area Cont Eq vti 2.2 cm squared AV Area Cont Eq pk 1.6 cm squared MV Area PHT 3.3 cm squared Mitral E to A Ratio 0.8 MV E' Velocity 35.5 cm/s Mitral E to MV E' Ratio 10.0 Mitral E to LV E' Lateral Ratio 8.3 Mitral E to LV E' Septal Ratio 12.8 TR Peak Velocity 179.0 cm/s TR Peak Gradient 12.8 mmHg TV Peak E Velocity 59.0 cm/s Right Atrial Pressure 3.0 mmHg Pulmonary Artery Systolic Pressu 15.8 mmHg FINDINGS Left Ventricle Normal left ventricular size. LV systolic function is severely reduced with EF of 25 to 30%. Apical akinesis is noted. Basal hmam are moving well. This pattern is consistent with Takotsubo cardiomyopathy. Grade 1 diastolic dysfunction is present. Right Ventricle The right ventricle is normal in size and has mildly reduced function. Right Atrium The right atrium is normal in size. Left Atrium The left atrium is normal in size. Mitral Valve Structurally normal mitral valve without significant stenosis or prolapse. There is no mitral regurgitation. Aortic Valve Aortic valve is thickened. There is mild aortic stenosis noted. Mean gradient across aortic valve is 10 mmHg. No significant aortic regurgitation is present. Tricuspid Valve Grossly normal. No significant tricuspid regurgitation is present. Insufficient TR jet to calculate RVSP.. Pulmonic Valve Structurally normal pulmonic valve without significant stenosis. There is no pulmonic regurgitation. Pericardium Normal pericardium without effusion. Aorta Normal ascending aorta dimension. CONCLUSIONS LV systolic function is severely reduced with EF of 25 to 30%. Apical ballooning is noted with preserved function of basal segments. This could represent Takotsubo cardiomyopathy. Grade 1 diastolic dysfunction is present. Mild aortic stenosis is present. Compared to prior study from 02/12/2018, LV systolic function has significantly reduced. Brenden Chowdhury MD (Electronically Signed) Final Date: 24 July 2020 10:23 S
[2020-07-24 06:18] LABS: Hematocrit 41.6 % (37.0-47.0); Hemoglobin 12.7 g/dL (11.5-15.3); Mean Corpuscular HGB Conc 30.5 g/dL (30.0-36.0); Mean Corpuscular Hemoglobin 26.5 pg (28.0-34.0); Mean Corpuscular Volume 86.7 fL (81-99); Mean Platelet Volume 9.9 fL (7.4-10.4); Platelet Count 272 10^3/cmm (130-400); Red Cell Distribution Width 18.3 % (12.1-15.1); White Blood Count 17.5 10^3/uL (4.0-10.0)
[2020-07-24 06:45] LABS: Magnesium 1.3 mg/dL (1.7-2.3); Thyroid Stimulating Hormone 0.47 uIU/mL (0.27-4.20)
[2020-07-24 07:13] LABS: Albumin Level 3.5 g/dL (3.5-5.2); Anion Gap 17.1 (5-19); Blood Urea Nitrogen 13 mg/dL (8-23); Carbon Dioxide 32 mmol/L (22-29); Chloride 98 mmol/L (98-107); Chol HDL Ratio 1.84 mg/dL (0.0-4.40); Cholesterol 123 mg/dL (0-200); Glucose 133 mg/dL (65-115); HDL Cholesterol 67 mg/dL (60-100); LDL Cholesterol Calculated 26 mg/dL (50-129); LDL HDL Ratio 0.39 RATIO (0.00-3.22); Phosphorus 2.8 mg/dL (2.5-4.5); Potassium 3.1 mmol/L (3.5-5.1); Sodium 144 mmol/L (136-145); Triglycerides 151 mg/dL (0-150)
[2020-07-24 07:44] LABS: Glucose Point of Care 136 mg/dL (70-110)
[2020-07-24 07:57] LABS: Slide Review Slide Review Perform
[2020-07-24] MEDS: atorvastatin 40 mg Tablet 20 MG PO (07:57)
[2020-07-24] MEDS: sitagliptin 100 mg Tablet PO (07:58)
[2020-07-24] MEDS: sucralfate 1 gm Tablet PO ×2 (07:58→20:27)
[2020-07-24 07:59] LABS: Absolute Neutrophil 15.4 10^3/cmm (1.4-6.5); Absolute Segmented Neutrophil 12.3 10/cmm (1.6-7.1); Band Neutrophils Absolute 3.2 10^3/cmm (0.0-1.2); Eosinophils 0 %; Lymphocytes 8 %; Monocytes Absolute 0.7 10^3/cmm (0.1-0.6); Platelet Estimate Normal (Normal); Segmented Neutrophils 70 %; Total Cells Counted 100 (0-100)
[2020-07-24] MEDS: lisinopril 2.5 mg Tablet PO (07:59)
[2020-07-24] MEDS: losartan 50 mg Tablet PO (08:00)
[2020-07-24] MEDS: duloxetine 60 mg Capsule PO (08:00)
[2020-07-24] MEDS: pantoprazole DR 40 mg Tablet PO (08:01)
[2020-07-24] MEDS: clopidogrel 75 mg Tablet PO (08:01)
[2020-07-24] MEDS: pregabalin 100 mg Capsule PO ×3 (08:01→20:27)
--- NOTE | 2020-07-24 08:46 | PC.CHAP ---
Pastoral Care Encounter/Spiritual Assessment Type of Contact [] Declined boom worker visit [] Patient/Family/Request visit [] Outpatient visit [] Follow-up visit [] Physician referral [] Code/Alert [] Routine visit [] Staff referral [] Actively dying [] Patient sleeping [] Family support [] [] Out of room [] Palliative care [] [] Receiving care in room [] Pre-surgical visit [] Trauma [] Long length of stay [x] ICU visit [] Other: Relational/Emotional Strength [] Patient feels connected with others/family/visitors/staff [] Distress [] Loneliness/isolation [] Abandonment Spirituality of Patient [] Person of Maria E [] Attends Druze of their Maria E [] Believes in Prayer [] Reads Bible or Adventist materials [] There are Spiritual issues to be addressed Electric Stove Installer Interventions [x] Prayer [] Active listening [] Non-anxious presence [] Spiritual/emotional support [] Crisis/trauma care [] Spiritual counseling [] Bereavement support [] Provided bereavement packet [] Provided Bible/devotional materials [] Provided toy/stuffed animal, coloring book to patient or family member [] Provided Communion [] Anointing/[place] [] Salvation [x] Completed spiritual assessment [] Other: Impact on Illness or Injury [] Angry [] Fearful [] Anxious [] Often cries [] Exhaustion [] Unable to work [] Unable to attend oriental orthodox [] Unable to walk/stand [] Unable to read [] Unable to drive [] Unable to eat/drink [] Unable to sleep [] Unable to be with family [] Patient intubated [] Other: Summary Time spent with patient
--- NOTE | 2020-07-24 09:04 | ECG_ITS ---
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 Measurements Intervals [place] Rate: 69 P: TN: QRS: -35 QRSD: 126 T: 240 QT: 434 QTc: 465 Interpretive Statements Sinus rhythm with sinus arrhythmia MARKED LEFT AXIS DEVIATION [QRS AXIS < -30] ANTERIOR MYOCARDIAL INFARCTION [40+ ms Q WAVE AND/OR ST/T ABNORMALITY IN V3/V4], PROBABLY RECENT MARKED ST ELEVATION, CONSIDER LATERAL INJURY [MARKED ST ELEVATION W/O NORMALLY INFLECTED T WAVE IN I/aVL/V5/V6] Compared to ECG 07/23/2020 18:19:05 Myocardial infarct finding now present Sinus rhythm no longer present Incomplete right bundle-branch block no longer present Left ventricular hypertrophy no longer present ST (T wave) deviation still present Electronically Signed On 07-24-2020 18:42:48 WEB DATABASE DEVELOPER by Brenden Chowdhury M.D. [id number]
--- NOTE | 2020-07-24 09:17 | P.PN_ITS ---
Subjective Subjective: Interval history: Patient is feeling better today. She does not complain of any chest pain or abdominal pain. Echocardiogram revealed severely reduced LV systolic function with EF of 25 to 30%. Apical ballooning is noted. Given normal coronary arteries on angiogram, this pattern is consistent with Takotsubo cardiomyopathy. Vitals/I&O/Wt Last Vital Signs Temp 98 F 07/24/20 04:00 Pulse 76 07/24/20 08:00 Resp 20 H 07/24/20 08:00 BP 137/68 07/24/20 08:00 Pulse Ox 91 07/24/20 08:00 07/23/20 07/24/20 07/24/20 22:59 06:59 14:59 Intake Total 2.825 / 2.825 100 / 100 Output Total 400 / 400 475 / 875 350 / 350 Balance -397.175 / -397.175 -475 / -872.175 -250 / -250 Weight last 48 hrs Weight 232 lb Weight 238 lb Physical Exam Narrative: EXAM NARRATIVE: GENERAL: Patient is alert, awake and oriented x3. [] NECK: No jugular vein distension. [] HEENT: No cyanosis. No icterus. No pallor. [] HEART: Regular S1 and S2. No murmur, rub or gallop. [] LUNGS: Has mild crackles bilaterally. ABDOMEN: Soft, nontender and nondistended. Positive bowel sounds. No guarding, rebound or tenderness. [] CENTRAL NERVOUS SYSTEM: Grossly nonfocal. [] EXTREMITIES: Lower extremities with 1+ edema bilaterally. Pulses palpable in the lower extremities, both dorsalis pedis and posterior tibial. [] Urinary Catheter Management^: Dumont: Cath Placed During This Visit: yes Reason for Continuing Indwelling Catheter: Accurate Measurement of Urinary Output in Critically Ill Patients Urinary Catheter Date of Insertion: 07/23/20 Urinary Catheter Time of Insertion: 18:22 Data : 07/24/20 05:58 07/24/20 05:58 A&P Assessment and plan (1) Stress-induced cardiomyopathy: Status: Acute (2) HFrEF (heart failure with reduced ejection fraction): Status: Acute (3) Diabetes: Status: Acute (4) Hypertension: Status: Acute (5) COPD (chronic obstructive pulmonary disease): Status: Acute (6) History of cerebrovascular accident: Status: Acute (7) Low back pain: Status: Chronic Patient is feeling better today. No chest pain. Echocardiogram revealed apical ballooning with severely reduced EF of 25 to 30%. Given normal coronary arteries on urgent catheterization done yesterday, EKG changes, elevation of troponins and apical ballooning, this pattern is consistent with stress induced cardiomyopathy. We will optimize heart failure therapy. Increase Coreg dose to 6.25 mg twice daily. Hold losartan and increase lisinopril dose to 10 mg daily. Continue aspirin and Plavix. Increase Lasix dose to 40 mg IV 3 times daily. Her LVEDP was elevated on cardiac catheterization. WBC count is elevated. Dr. Dowell from hospitalist service is assisting with management of medical problems. Appreciate his input. Strict I and O's. Attestations Medical Necessity Statement*: Care expected to cross 2 midnights. Patient has severely reduced cardiac function with heart failure symptoms. Managed with IV diuresis. Coding Level of Care Code Acute Polysomnography Tech for Lea Dinero Diagnoses Stress-induced cardiomyopathy I51.81 HFrEF (heart failure with reduced ejection fraction) I50.20 Diabetes E11.9 Hypertension I10 COPD (chronic obstructive pulmonary disease) J44.9 History of cerebrovascular accident Z86.73 Low back pain M54.5
[2020-07-24] MEDS: magnesium sulfate premix 2 GM/50 ML PIGGYBACK IV (09:27)
--- NOTE | 2020-07-24 09:59 | PC.NURSE ---
EKG Verbal order from to obtain EKG. EKG performed by RT. findings read ACUTE IL. Nurse called and notified EKG. no new orders at this time. patient states that she feels short of breath but always feels this way. denies any pain at this time.
[2020-07-24] MEDS: potassium chloride premix 100 ML 25 MEQ IV (10:34)
[2020-07-24 11:22] LABS: Glucose Point of Care 145 mg/dL (70-110)
[2020-07-24] MEDS: ALPRAZolam 0.25 mg Tablet PO (12:03)
[2020-07-24] MEDS: FUROsemide 10 mg/mL SDV 4mL 40 MG IVP ×2 (14:23→20:27)
[2020-07-24 17:01] LABS: Glucose Point of Care 137 mg/dL (70-110)
--- NOTE | 2020-07-24 17:26 | PM.PN ---
Subjective Subjective: Interval history: The patient is doing very well. Denies any active complaints. Eating her lunch. No fevers or chills. No nausea or vomiting. No chest pain, shortness of breath, cough, palpitations. Medications: Reviewed: Yes Medication Review Details: Generic Name Dose Route Start Last Admin Trade Name Freq PRN Reason Stop Dose Admin Acetaminophen 650 mg 07/23/20 14:58 07/23/20 15:19 Acetaminophen 32 5 Mg Tablet PO 650 mg Q6H PRN Administration MILD PAIN Alprazolam 0.25 mg 07/23/20 14:58 07/24/20 12:03 Alprazolam 0.25 Mg Tablet PO 0.25 mg TID PRN Administration ANXIETY Atorvastatin Calci um 20 mg 07/24/20 08:00 07/24/20 07:57 Atorvastatin 40 Mg Tablet PO 20 mg DAILY@08 MAYCO Administration Buspirone HCl 15 mg 07/23/20 20:00 07/24/20 08:01 Buspirone 15 Mg Tablet PO 15 mg BID@,20 MAYCO Administration Carvedilol 6.25 mg 07/24/20 10:45 07/24/20 10:48 Carvedilol 6.25 Mg Tablet PO Not Given Q12H [facility] Clopidogrel Bisulf ate 75 mg 07/24/20 08:00 07/24/20 08:01 Clopidogrel 75 M g Tablet PO 75 mg DAILY@08 MAYCO Administration Duloxetine HCl 60 mg 07/24/20 08:00 07/24/20 08:00 Duloxetine 60 Mg Capsule PO 60 mg DAILY@08 MAYCO Administration Furosemide 40 mg 07/24/20 15:00 07/24/20 14:23 Furosemide 10 Mg /Ml Sdv 4ml IVP 40 mg TID MYACO Administration Nitroglycerin/Dext echo 50 mg in 250 mls @ 0 mls/hr 07/23/20 13:00 07/23/20 15:[address] ip IV 0 mcg/min .Q0M MAYCO 0 mls/hr Titration Protocol Per Protocol Insulin Aspart 0 unit 07/23/20 18:00 07/24/20 17:03 Insulin Aspart 1 00 Unit/1 Ml SUBCUT Not Given TIDWM MAYCO Protocol Insulin Aspart 0 unit 07/23/20 21:00 07/23/20 20:01 Insulin Aspart 1 00 Unit/1 Ml SUBCUT Not Given BEDTIME [facility] Protocol Morphine Sulfate 4 mg 07/23/20 14:43 07/23/20 21:20 Morphine 4 Mg/Ml Sdv 1 Ml IVP 4 mg Q4H PRN Administration SEVERE PAIN Pantoprazole Sodiu m 40 mg 07/24/20 08:00 07/24/20 08:[address] 40 Mg Tablet PO 40 mg DAILY@08 MAYCO Administration Pregabalin 100 mg 07/23/20 20:00 07/24/20 14:23 Pregabalin 100 M g Capsule PO 100 mg TID@, MAYCO Administration Sitagliptin Phosph ate 100 mg 07/24/20 08:00 07/24/20 07:58 Sitagliptin 100 Mg Tablet PO 100 mg DAILY@08 [facility] Administration Sucralfate 1 gm 07/23/20 20:00 07/24/20 07:58 Sucralfate 1 Gm Tablet PO 1 gm BID@ MAYCO Administration Trazodone HCl 150 mg 07/23/20 17:17 07/23/20 21:21 Trazodone 150 Mg Tablet PO 150 mg BEDTIME PRN Administration Sleep Vitals/I&O/Wt Last Vital Signs Temp 98.7 F 07/24/20 16:00 Pulse 75 07/24/20 16:00 Resp 13 07/24/20 16:00 BP 155/90 07/24/20 16:00 Pulse Ox 96 07/24/20 16:00 07/24/20 07/24/20 07/24/20 06:59 14:59 22:59 Intake Total 500 / 500 Output Total 475 / 875 350 / 350 Balance -475 / -872.175 150 / 150 Weight last 48 hrs Weight 105.233 kg Weight 107.955 kg Physical Exam Narrative: EXAM NARRATIVE: Patient is lethargic due to sedation. Responses are mainly adequate. No acute distress. Mood and affect are appropriate. Skin is warm and dry. Mycelex denies. Neck supple. No JVD Eyes Harpal, extraocular muscles are intact Lungs are clear. No respiratory distress Heart S1, S2, regular Abdomen soft, obese, nontender, bowel sounds are present Extremities severe bilateral pedal edema, chronic venous stasis changes, no redness or hyperemia, no peripheral cyanosis Moves all extremities. Urinary Catheter Management^: Dumont: Cath Placed During This Visit: yes Reason for Continuing Indwelling Catheter: Accurate Measurement of Urinary Output in Critically Ill Patients Urinary Catheter Date of Insertion: 07/23/20 Urinary Catheter Time of Insertion: 18:22 Data : 07/24/20 05:58 07/24/20 05:58 A&P Additional A&P Information 75-year-old female with past medical history of COPD, chronic oxygen need, diabetes and hypertension, GERD, possible CHF who underwent cardiac catheterization for abnormal EKG and elevated troponin. Coronary artery disease. Medical management is recommended. Status post cardiac catheterization. We will continue management per Dr. Chowdhury's recommendations. History of CHF. We will continue her home medications including furosemide. History of COPD. We will continue home medications. We will continue supplemental oxygen. No evidence of acute exacerbation at this time. History of hypothyroidism. Continue home medication. Check TSH. Leukocytosis and fever. No evidence of infection based on initial evaluation. Chest x-ray is clear. UA does not show evidence of UTI. Doppler did not reveal DVT. No evidence of cellulitis. Abdomen is soft and benign. Will check respiratory viral panel. I wonder if patient recently received steroids for some reason. Asked the nurse to check with the family. We will recheck CBC in the morning. Hypertension. Well-controlled currently. Continue home medications. Diabetes. We will hold pioglitazone and Metformin. Continue rest of the medications and insulin sliding scale. Hypokalemia. Replace and monitor. The plan of care was discussed with the patient. She verbalized understanding and agreement. Discussed with the multidisciplinary team and Dr. Chowdhury. Thank you very much for allowing me to participate in treatment of this patient. Attestations Medical Necessity Statement*: Continue work-up for her leukocytosis and management of her coronary artery disease. Coding Level of Care Code Acute Clinical Informatics Manager for Lea Dinero
[2020-07-24] MEDS: lisinopril 10 mg Tablet PO (17:55)
[2020-07-24] MEDS: acetaminophen 325 mg Tablet 650 MG PO (17:56)
[2020-07-24 20:33] LABS: Glucose Point of Care 166 mg/dL (70-110)
[2020-07-24] MEDS: carvedilol 6.25 mg Tablet PO (22:13)
[2020-07-25] VITALS (21 sets, daily range): BP systolic 86–145; BP diastolic 37–77; PULSE 52–80; RESP 14–22; TEMP 35.8–36.9; O2SAT 91–98
[2020-07-25] MEDS: acetaminophen 325 mg Tablet 650 MG PO ×3 (03:04→19:14)
--- NOTE | 2020-07-25 05:36 | PC.NURSE ---
notified Dr Fowler of clay output of 100 ml with hematuria, no new orders at this time
[2020-07-25 06:46] LABS: Glucose Point of Care 150 mg/dL (70-110)
[2020-07-25] MEDS: sucralfate 1 gm Tablet PO ×2 (07:31→19:14)
--- NOTE | 2020-07-25 07:41 | USCV_ITS ---
Lauren Jose Age: 75 Gender: F : 1945 Exam Date: 07/25/2020 10:01 Ordering Phys: Brenden Chowdhury M.D ([email or web address]) Technologist: Natalie Cali [place] [facility] [place]N [place] BP: 105 / 44 HR: Rhythm: Sinus Technical Quality: Adequate MEASUREMENTS (Male / Female) Normal Values 2D ECHO LV Diastolic Diameter PLAX 4.3 cm 4.2 - 5.9 / 3.9 - 5.3 cm LV Systolic Diameter PLAX 2.0 cm LV Chamber Size 4.1 cm IVS Diastolic Thickness 1.7 cm 0.6 - 1.0 / 0.6 - 0.9 cm IVS Systolic Thickness 3.1 cm LVPW Diastolic Thickness 1.8 cm 0.6 - 1.0 / 0.6 - 0.9 cm LVPW Systolic Thickness 2.0 cm RV Chamber Size 2.9 cm LVOT Diameter 2.0 cm LV Ejection Fraction 2D Teich 84.7 % LV Ejection Fraction MOD 2C 42.2 % LV Ejection Fraction 2C AL 46.1 % LA Diameter 2.3 cm LA Width 3.0 cm LA Height 3.5 cm RA Width 2.9 cm RA Height 4.0 cm Aorta at Sinotubular Diameter 2.0 cm FINDINGS Left Ventricle This is a limited echocardiogram with contrast to rule out LV thrombus and assess LV function. LV systolic function is moderate to severely reduced with LVEF of 35 to 40%. There is severe hypokinesis of apical wall. Global mild to moderate hypokinesis is noted. No LV thrombus is present. Right Ventricle The right ventricle is not well-visualized. Grossly RV function appears moderately reduced. Right Atrium Grossly normal Left Atrium Grossly normal Mitral Valve Grossly normal Aortic Valve Not well-visualized. Tricuspid Valve Not well-visualized Pulmonic Valve Not well-visualized Pericardium Grossly normal Aorta Normal ascending aorta dimension. CONCLUSIONS This is a limited echocardiogram with contrast performed to rule out LV thrombus and assess LV function. LV systolic function is moderate to severely reduced with EF of 35 to 40%. There is severe hypokinesis of apical wall. Global mild to moderate hypokinesis is noted. No LV thrombus is present. Grossly RV function appears at least moderately reduced. Compared to prior echocardiogram from 07/24/2020, LV systolic function has improved and is 35 to 40% now. Brenden Chowdhury MD (Electronically Signed) Final Date: 26 July 2020 12:06 S
[2020-07-25] MEDS: morphine 4 mg/mL SDV 1 mL 2 MG IVP ×3 (08:00→23:56)
[2020-07-25 08:44] LABS: Albumin Level 2.8 g/dL (3.5-5.2); Blood Urea Nitrogen 26 mg/dL (8-23); Carbon Dioxide 32 mmol/L (22-29); Chloride 95 mmol/L (98-107); Glucose 130 mg/dL (65-115); Magnesium 1.9 mg/dL (1.7-2.3); Phosphorus 2.4 mg/dL (2.5-4.5); Sodium 136 mmol/L (136-145)
[2020-07-25] MEDS: pantoprazole DR 40 mg Tablet PO (08:47)
[2020-07-25] MEDS: aspirin 81 mg Chew Tablet PO (08:48)
[2020-07-25] MEDS: atorvastatin 40 mg Tablet 20 MG PO (08:48)
[2020-07-25] MEDS: clopidogrel 75 mg Tablet PO (08:48)
[2020-07-25] MEDS: duloxetine 60 mg Capsule PO (08:48)
[2020-07-25 08:51] LABS: Anion Gap 12.8 (5-19); Potassium 3.8 mmol/L (3.5-5.1)
[2020-07-25] MEDS: pregabalin 100 mg Capsule PO ×3 (08:54→19:14)
[2020-07-25] MEDS: sitagliptin 100 mg Tablet PO (08:57)
--- NOTE | 2020-07-25 09:00 | PC.NURSE ---
Dr. Chowdhury at bedside. Verbal order received to increase lasix to 60 mg TID. Recheck BP in one hour, if SBP>100 give lasix. Reassess BP and notify provider before administering coreg or lisinopril. RBVO.
--- NOTE | 2020-07-25 09:21 | PM.PN ---
Subjective Subjective: Interval history: Patient is feeling better. She denies any complaints of chest pain. She has backache and bilateral arm pain. She says that she had been having it for a while. She has stayed afebrile. Urine output is still not adequate. Vitals/I&O/Wt Last Vital Signs Temp 96.4 F L 07/25/20 06:54 Pulse 57 L 07/25/20 06:54 Resp 16 07/25/20 08:00 BP 94/48 07/25/20 06:54 Pulse Ox 94 07/25/20 08:00 07/24/20 07/25/20 07/25/20 22:59 06:59 14:59 Intake Total 720 / 1220 360 / 360 Output Total 550 / 900 100 / 1000 Balance 170 / 320 -100 / 220 360 / 360 Weight last 48 hrs Weight 232 lb Weight 238 lb Physical Exam Narrative: EXAM NARRATIVE: GENERAL: Patient is alert, awake and oriented x3. [] NECK: No jugular vein distension. [] HEENT: No cyanosis. No icterus. No pallor. [] HEART: Regular S1 and S2. No murmur, rub or gallop. [] LUNGS: Has mild crackles bilaterally. ABDOMEN: Soft, nontender and nondistended. Positive bowel sounds. No guarding, rebound or tenderness. [] CENTRAL NERVOUS SYSTEM: Grossly nonfocal. [] EXTREMITIES: Lower extremities with 1+ edema bilaterally. Pulses palpable in the lower extremities, both dorsalis pedis and posterior tibial. [] Urinary Catheter Management^: Dumont: Cath Placed During This Visit: yes Reason for Continuing Indwelling Catheter: Accurate Measurement of Urinary Output in Critically Ill Patients Urinary Catheter Date of Insertion: 07/23/20 Urinary Catheter Time of Insertion: 18:22 Data : 07/26/20 05:41 07/26/20 05:41 A&P Assessment and plan (1) Stress-induced cardiomyopathy: Status: Acute (2) HFrEF (heart failure with reduced ejection fraction): Status: Acute (3) Diabetes: Status: Acute (4) Hypertension: Status: Acute (5) COPD (chronic obstructive pulmonary disease): Status: Acute (6) Low back pain: Status: Chronic (7) Smokeless tobacco use: Status: Chronic (8) History of cerebrovascular accident: Status: Acute Differentials for patient's condition are Takotsubo cardiomyopathy versus myocarditis. Patient is feeling better today. No chest pain. Echocardiogram revealed apical ballooning with severely reduced EF of 25 to 30%. Given normal coronary arteries on urgent catheterization done yesterday, EKG changes, elevation of troponins and apical ballooning, this pattern is consistent with stress induced cardiomyopathy. We will optimize heart failure therapy. Continue aspirin and Plavix. Continue lisinopril and Coreg. Continue Lasix 40 mg IV 3 times daily. Her LVEDP was elevated on cardiac catheterization. WBC count has improved. Strict I and O's. Attestations Medical Necessity Statement*: Care expected to cross 2 midnights. Patient has acute congestive heart failure requiring IV diuresis. Coding Level of Care Code Acute Retirement Benefits Specialist for Lea Dinero Diagnoses Stress-induced cardiomyopathy I51.81 HFrEF (heart failure with reduced ejection fraction) I50.20 Diabetes E11.9 Hypertension I10 COPD (chronic obstructive pulmonary disease) J44.9 Low back pain M54.5 Smokeless tobacco use Z72.0 History of cerebrovascular accident Z86.73
[2020-07-25 09:49] LABS: Basophils % 0.3 %; Eosinophils % 0.3 %; Hematocrit 41.6 % (37.0-47.0); Lymphocytes # 1.2 10^3/uL (0.8-4.8); Lymphocytes % 10.2 %; Mean Corpuscular HGB Conc 31.3 g/dL (30.0-36.0); Mean Corpuscular Hemoglobin 26.1 pg (28.0-34.0); Mean Corpuscular Volume 83.5 fL (81-99); Mean Platelet Volume 10.5 fL (7.4-10.4); Monocytes # 0.7 10^3/uL (0.2-0.9); Neutrophils # 9.79 10^3/uL (1.8-7.7); Neutrophils % 82.3 %; Nucleated Red Blood Cells % 0 %; Platelet Count 155 10^3/cmm (130-400); Red Blood Count 4.98 10^6/uL (4.1-5.3); Red Cell Distribution Width 18.2 % (12.1-15.1); White Blood Count 11.9 10^3/uL (4.0-10.0)
--- NOTE | 2020-07-25 10:01 | PC.NURSE ---
Addendum entered by Zakia Barnett 07/25/20 10:02: BP 94/48. Physician gave telephone order to administer 2 mg morphine IVP, discontinue 4 mg IVP order. RBTO. Original Note: Dr. Chowdhury notified that patient is reporting back pain that radiated down the left arm. Denies CP or SOB. Pain rated 8/10. BP 0
[2020-07-25] MEDS: FUROsemide 10 mg/mL SDV 10mL 60 MG IVP ×3 (10:14→20:33)
[2020-07-25] MEDS: perflutren protein-a microsphr 0.22 mg/mL SDV 3 mL IV (10:16)
--- NOTE | 2020-07-25 10:45 | PC.NURSE ---
Dr. Chowdhury updated on patient condition. BP now 92/44 HR 58. Telephone order to hold lisinopril and coreg. RVTO.
[2020-07-25 11:08] LABS: Glucose Point of Care 278 mg/dL (70-110)
--- NOTE | 2020-07-25 15:13 | PC.NURSE ---
Addendum entered by Zakia Barnett 07/25/20 15:16: Telephone order received to start dobutamine at 5 mcg/kg/min. RBTO. Original Note: Dr. Chowdhury updated on patient condition. BP now 92/40 MAP 57 HR mid to low 50s. Patient is not diuresing well. No urine output over last hour. Crackles to auscultation. Patient is lethargic.
--- NOTE | 2020-07-25 15:16 | PM.PN ---
Subjective Subjective: Interval history: Overall the patient is doing well. Denies any shortness of breath at rest. No chest pain. Has some cough with clear mucus. No nausea or vomiting. No fevers or chills. Medications: Reviewed: Yes Medication Review Details: Generic Name Dose Route Start Last Admin Trade Name Freq PRN Reason Stop Dose Admin Acetaminophen 650 mg 07/23/20 14:58 07/25/20 10:27 Acetaminophen 32 5 Mg Tablet PO 650 mg Q6H PRN Administration MILD PAIN Alprazolam 0.25 mg 07/23/20 14:58 07/24/20 12:03 Alprazolam 0.25 Mg Tablet PO 0.25 mg TID PRN Administration ANXIETY Aspirin 81 mg 07/25/20 09:00 07/25/20 08:48 Aspirin 81 Mg Ch ew Tablet PO 81 mg DAILY MAYCO Administration Atorvastatin Calci um 20 mg 07/24/20 08:00 07/25/20 08:48 Atorvastatin 40 Mg Tablet PO 20 mg DAILY@08 MAYCO Administration Buspirone HCl 15 mg 07/23/20 20:00 07/25/20 08:54 Buspirone 15 Mg Tablet PO 15 mg BID@08,20 MAYCO Administration Carvedilol 6.25 mg 07/24/20 10:45 07/25/20 10:45 Carvedilol 6.25 Mg Tablet PO Not Given Q12H [facility] [place] Clopidogrel Bisulf ate 75 mg 07/24/20 08:00 07/25/20 08:48 Clopidogrel 75 M g Tablet PO 75 mg DAILY@08 MAYCO Administration Duloxetine HCl 60 mg 07/24/20 08:00 07/25/20 08:48 Duloxetine 60 Mg Capsule PO 60 mg DAILY@08 MAYCO Administration Furosemide 60 mg 07/25/20 09:00 07/25/20 14:02 Furosemide 10 Mg /Ml Sdv 10ml IVP 60 mg TID MAYCO Administration Nitroglycerin/Dext echo 50 mg in 250 mls @ 0 mls/hr 07/23/20 13:00 07/25/20 10:[address] ip IV Infused .Q0M MAYCO Titration Protocol Per Protocol Insulin Aspart 0 unit 07/23/20 18:00 07/25/20 11:50 Insulin Aspart 1 00 Unit/1 Ml SUBCUT 8 unit TIDWM MAYCO Administration Protocol Insulin Aspart 0 unit 07/23/20 21:00 07/24/20 21:18 Insulin Aspart 1 00 Unit/1 Ml SUBCUT 1 unit BEDTIME [facility] [place] Administration Protocol Lisinopril 10 mg 07/24/20 18:00 07/25/20 10:44 Lisinopril 10 Mg Tablet PO Not Given BID [facility] Morphine Sulfate 2 mg 07/25/20 07:45 07/25/20 08:00 Morphine 4 Mg/Ml Sdv 1 Ml IVP 2 mg Q4H PRN Administration SEVERE PAIN Pantoprazole Sodiu m 40 mg 07/24/20 08:00 07/25/20 08:[address] 40 Mg Tablet PO 40 mg DAILY@08 [facility] [place] Administration Pregabalin 100 mg 07/23/20 20:00 07/25/20 13:58 Pregabalin 100 M g Capsule PO 100 mg TID@, [facility] [place] Administration Sitagliptin Phosph ate 100 mg 07/24/20 08:00 07/25/20 08:57 Sitagliptin 100 Mg Tablet PO 100 mg DAILY@08 [facility] Administration Sucralfate 1 gm 07/23/20 20:00 07/25/20 07:31 Sucralfate 1 Gm Tablet PO 1 gm BID@ [facility] Administration Trazodone HCl 150 mg 07/23/20 17:17 07/23/20 21:21 Trazodone 150 Mg Tablet PO 150 mg BEDTIME PRN Administration Sleep Vitals/I&O/Wt Last Vital Signs Temp 97.6 F 07/25/20 14:50 Pulse 60 07/25/20 14:50 Resp 16 07/25/20 14:50 BP 92/40 07/25/20 14:50 Pulse Ox 95 07/25/20 14:50 07/25/20 07/25/20 07/25/20 06:59 14:59 22:59 Intake Total 1340 / 1340 Output Total 100 / 1000 Balance -100 / 220 1340 / 1340 Physical Exam Narrative: EXAM NARRATIVE: Patient is lethargic due to sedation. Responses are mainly adequate. No acute distress. Mood and affect are appropriate. Skin is warm and dry. Mycelex denies. Neck supple. No JVD Eyes Harpal, extraocular muscles are intact Lungs mild basilar crackles. No respiratory distress Heart S1, S2, regular Abdomen soft, obese, nontender, bowel sounds are present Extremities severe bilateral pedal edema, chronic venous stasis changes, no redness or hyperemia, no peripheral cyanosis Moves all extremities. Urinary Catheter Management^: Dumont: Cath Placed During This Visit: yes Reason for Continuing Indwelling Catheter: Accurate Measurement of Urinary Output in Critically Ill Patients Urinary Catheter Date of Insertion: 07/23/20 Urinary Catheter Time of Insertion: 18:22 Data : 07/25/20 07:25 07/25/20 07:25 A&P Additional A&P Information 75-year-old female with past medical history of COPD, chronic oxygen need, diabetes and hypertension, GERD, possible CHF who underwent cardiac catheterization for abnormal EKG and elevated troponin. Coronary artery disease. Medical management is recommended. Status post cardiac catheterization. We will continue management per Dr. Chowdhury's recommendations. CHF, acute exacerbation. EF of 25 to 30%. Apical ballooning is noted. Stress induced cardiomyopathy is suspected. The dose of furosemide was increased by Dr. Chowdhury today. Continue the rest of the medications. History of COPD. We will continue home medications. We will continue supplemental oxygen. No evidence of acute exacerbation at this time. History of hypothyroidism. Continue home medication. TSH within normal limits. Leukocytosis and fever. No evidence of infection based on initial evaluation. Chest x-ray is clear. UA does not show evidence of UTI. Doppler did not reveal DVT. No evidence of cellulitis. Abdomen is soft and benign. No fever for last 24 hours. Leukocytosis improved without treatment. Probably was reactive. Hypertension. Well-controlled currently. Continue home medications. Diabetes. We will hold pioglitazone and Metformin. Continue rest of the medications and insulin sliding scale. Hypokalemia. Replace and monitor. The plan of care was discussed with the patient. She verbalized understanding and agreement. Discussed with the multidisciplinary team and Dr. Chowdhury. Thank you very much for allowing me to participate in treatment of this patient. Attestations Medical Necessity Statement*: Hopefully home tomorrow. Today she requires additional IV furosemide for management of CHF. Coding Level of Care Code Acute It Support Technician for Lea Dinero
[2020-07-25] MEDS: DOBUTamine drip 500 MG/250 ML PREMIX 15.8 MG IV (15:44)
--- NOTE | 2020-07-25 16:32 | PC.NURSE ---
patient reports feeling wet. a small amount of urine had leaked around catheter. Catheter readvanced, sterile technique maintained. pericare performed. nurse to continue to monitor.
[2020-07-25 16:48] LABS: Glucose Point of Care 108 mg/dL (70-110)
--- NOTE | 2020-07-25 17:09 | PC.NURSE ---
Evening lisinopril administration clarified with Dr. Chowdhury. Telephone order to administer 5 mg lisinopril now and change order to 5 mg lisinopril daily.
[2020-07-25] MEDS: lisinopril 5 mg Tablet PO (17:21)
--- NOTE | 2020-07-25 17:52 | PC.RESP ---
Smoking Cessation and Pulmonary Rehab information sent to patient.
[2020-07-25 20:33] LABS: Glucose Point of Care 163 mg/dL (70-110)
[2020-07-25] MEDS: carvedilol 6.25 mg Tablet PO (22:20)
[2020-07-26] VITALS (35 sets, daily range): BP systolic 91–150; BP diastolic 44–95; PULSE 55–98; RESP 12–25; TEMP 36.3–37.2; O2SAT 91–100
[2020-07-26 06:09] LABS: Basophils % 0.2 %; Eosinophils # 0.1 10^3/uL (0.0-0.8); Eosinophils % 1.2 %; Hematocrit 35.4 % (37.0-47.0); Hemoglobin 10.5 g/dL (11.5-15.3); Lymphocytes # 1.5 10^3/uL (0.8-4.8); Lymphocytes % 16.2 %; Mean Corpuscular HGB Conc 29.7 g/dL (30.0-36.0); Mean Corpuscular Hemoglobin 26.2 pg (28.0-34.0); Mean Corpuscular Volume 88.3 fL (81-99); Mean Platelet Volume 9.8 fL (7.4-10.4); Monocytes % 10.5 %; Neutrophils # 6.56 10^3/uL (1.8-7.7); Neutrophils % 71.5 %; Nucleated Red Blood Cells % 0 %; Platelet Count 250 10^3/cmm (130-400); Red Blood Count 4.01 10^6/uL (4.1-5.3); Red Cell Distribution Width 18.1 % (12.1-15.1); White Blood Count 9.2 10^3/uL (4.0-10.0)
[2020-07-26 06:26] LABS: Glucose Point of Care 151 mg/dL (70-110)
[2020-07-26 06:39] LABS: Albumin Level 2.8 g/dL (3.5-5.2); Anion Gap 10.4 (5-19); Blood Urea Nitrogen 37 mg/dL (8-23); Calcium 9.1 mg/dL (8.5-10.5); Carbon Dioxide 35 mmol/L (22-29); Chloride 96 mmol/L (98-107); Glucose 150 mg/dL (65-115); Phosphorus 3.3 mg/dL (2.5-4.5); Potassium 3.4 mmol/L (3.5-5.1); Sodium 138 mmol/L (136-145)
--- NOTE | 2020-07-26 07:34 | XRR_ITS ---
PROCEDURE INFORMATION: Exam: XR Chest, 2 Views Exam date and time: 07/26/2020 8:26 AM Age: 75 years old Clinical indication: Condition or disease; Other: Congestive heart failure TECHNIQUE: Imaging protocol: XR of the chest Views: 2 views. COMPARISON: CR XR chest 1V portable [id number] 07/23/2020 9:43 AM FINDINGS: Tubes, catheters and devices: Neurostimulator wires project on the lower thoracic spine. Lungs: Unremarkable. No consolidation. Pleural space: Unremarkable. No pleural effusion. No pneumothorax. Heart/Mediastinum: The cardiac silhouette is enlarged but unchanged. Bones/joints: Unremarkable. XR/XR chest 2V* [id number] IMPRESSION: 1. Stable cardiac enlargement. 2. No acute abnormalities are seen in the chest.
[2020-07-26] MEDS: clopidogrel 75 mg Tablet PO (07:55)
[2020-07-26] MEDS: sucralfate 1 gm Tablet PO ×2 (07:55→20:20)
[2020-07-26] MEDS: atorvastatin 40 mg Tablet 20 MG PO (07:56)
[2020-07-26] MEDS: duloxetine 60 mg Capsule PO (07:56)
[2020-07-26] MEDS: pregabalin 100 mg Capsule PO ×3 (07:56→20:20)
[2020-07-26] MEDS: pantoprazole DR 40 mg Tablet PO (07:56)
[2020-07-26] MEDS: DOBUTamine drip 500 MG/250 ML PREMIX 15.8 MG IV ×2 (07:58→23:00)
[2020-07-26 09:06] LABS: NT Pro B Type Natriuretic Pept 5640 pg/mL (0-125)
[2020-07-26] MEDS: aspirin 81 mg Chew Tablet PO (09:39)
[2020-07-26] MEDS: metOLazone 5 MG Tablet PO (09:39)
[2020-07-26] MEDS: sitagliptin 100 mg Tablet PO (09:40)
[2020-07-26] MEDS: bumetanide 0.25 mg/mL SDV 10 mL 2 MG IV ×3 (09:40→20:20)
--- NOTE | 2020-07-26 09:44 | PM.PN ---
Subjective Subjective: Interval history: Patient is feeling well. She still has shortness of breath. She denies chest pain today has lower back discomfort. Yesterday her blood pressures were dropping and urine output was significantly low. She was started on dobutamine drip. Urine output has not improved significantly. Creatinine has gone up from 0.8 to 1.1 today. Vitals/I&O/Wt Last Vital Signs Temp 97.8 F 07/26/20 08:00 Pulse 60 07/26/20 09:11 Resp 20 H 07/26/20 09:11 BP 109/55 07/26/20 08:00 Pulse Ox 98 07/26/20 09:11 07/25/20 07/26/20 07/26/20 22:59 06:59 14:59 Intake Total 240 / 1580 227 / 1807 250 / 250 Output Total 450 / 450 300 / 750 Balance -210 / 1130 -73 / 1057 250 / 250 Physical Exam Narrative: EXAM NARRATIVE: GENERAL: Patient is alert, awake and oriented x3. [] NECK: No jugular vein distension. [] HEENT: No cyanosis. No icterus. No pallor. [] HEART: Regular S1 and S2. No murmur, rub or gallop. [] LUNGS: Has crackles bilaterally. ABDOMEN: Soft, nontender and nondistended. Positive bowel sounds. No guarding, rebound or tenderness. [] CENTRAL NERVOUS SYSTEM: Grossly nonfocal. [] EXTREMITIES: Lower extremities with 1+ edema bilaterally. Pulses palpable in the lower extremities, both dorsalis pedis and posterior tibial. [] Urinary Catheter Management^: Dumont: Cath Placed During This Visit: yes Reason for Continuing Indwelling Catheter: Accurate Measurement of Urinary Output in Critically Ill Patients Urinary Catheter Date of Insertion: 07/23/20 Urinary Catheter Time of Insertion: 18:22 Data : 07/26/20 05:41 07/26/20 05:41 A&P Assessment and plan (1) Stress-induced cardiomyopathy: Status: Acute (2) HFrEF (heart failure with reduced ejection fraction): Status: Acute (3) Diabetes: Status: Acute (4) Hypertension: Status: Acute (5) COPD (chronic obstructive pulmonary disease): Status: Acute (6) Low back pain: Status: Chronic (7) Smokeless tobacco use: Status: Chronic (8) History of cerebrovascular accident: Status: Acute Differentials for patient's condition are Takotsubo cardiomyopathy versus myocarditis. Patient says she is feeling at her baseline. No chest pain. We repeated echocardiogram with contrast to rule out LV thrombus. No LV thrombus has been seen. LV systolic function seems to have improved from prior echo and now is 35 to 40%. Given normal coronary arteries on urgent catheterization done yesterday, EKG changes, elevation of troponins and apical ballooning, this pattern is consistent with stress induced cardiomyopathy. Other differential will be myocarditis. Optimizing heart failure therapy. Continue aspirin and Plavix. Continue lisinopril. Continue dobutamine for now. Urine output is poor on Lasix. We will switch to metolazone 5 mg daily p.o. and IV Bumex 2 mg 3 times a day. We will monitor renal function closely. WBC count has improved. Strict I and O's. Attestations Medical Necessity Statement*: Care expected to cross 2 midnights. Patient with acute congestive heart failure and is requiring IV diuresis. Coding Level of Care Code Acute It Infrastructure Engineer for Lea Dinero Diagnoses Stress-induced cardiomyopathy I51.81 HFrEF (heart failure with reduced ejection fraction) I50.20 Diabetes E11.9 Hypertension I10 COPD (chronic obstructive pulmonary disease) J44.9 Low back pain M54.5 Smokeless tobacco use Z72.0 History of cerebrovascular accident Z86.73
--- NOTE | 2020-07-26 09:45 | PC.NURSE ---
Dr. Chowdhury at bedside to evaluate patient. Verbal order to hold lisinopril for one hour and recheck BP. Give metolazone and bumex now. RBVO.
--- NOTE | 2020-07-26 11:09 | PC.NURSE ---
Dr. Chowdhury updated on patient condition. BP 117/65 HR 50s sinus oscar. Telephone order to give scheduled lisinopril and decrease coreg dose to 3.125 mg BID, first dose now. RBTO.
--- NOTE | 2020-07-26 11:21 | PC.CHAP ---
Pastoral Care Encounter/Spiritual Assessment Type of Contact [] Declined general operator visit [] Patient/Family/Request visit [] Outpatient visit [] Follow-up visit [] Physician referral [] Code/Alert [x] Routine visit [] Staff referral [] Actively dying [] Patient sleeping [] Family support [] [] Out of room [] Palliative care [] [x] Receiving care in room [] Pre-surgical visit [] Trauma [] Long length of stay [] ICU visit [] Other: Relational/Emotional Strength [x] Patient feels connected with others/family/visitors/staff [] Distress [] Loneliness/isolation [] Abandonment Spirituality of Patient [x] Person of Maria E [] Attends Mu-Ism of their Maria E [x] Believes in Prayer [] Reads Bible or Yazidi materials [] There are Spiritual issues to be addressed External Grinder Interventions [x] Prayer [x] Active listening [x] Non-anxious presence [x] Spiritual/emotional support [] Crisis/trauma care [x] Spiritual counseling [] Bereavement support [] Provided bereavement packet [] Provided Bible/devotional materials [] Provided toy/stuffed animal, coloring book to patient or family member [] Provided Communion [] Anointing/Furman [] Salvation [x] Completed spiritual assessment [] Other: Impact on Illness or Injury [] Angry [] Fearful [x] Anxious [] Often cries [] Exhaustion [] Unable to work [] Unable to attend taoist [] Unable to walk/stand [] Unable to read [] Unable to drive [] Unable to eat/drink [] Unable to sleep [] Unable to be with family [] Patient intubated [] Other: Summary In pain has good attitude, not sure about treatment needed Time spent with patient 10 mins
[2020-07-26 11:23] LABS: Glucose Point of Care 274 mg/dL (70-110)
[2020-07-26] MEDS: carvedilol 3.125 mg Tablet PO ×2 (11:29→18:09)
[2020-07-26] MEDS: lisinopril 5 mg Tablet PO (11:29)
--- NOTE | 2020-07-26 11:30 | PC.SOCIAL ---
*IMM*Patient received her Important message from [employer]. pt gave a copy, original signed dated and in chart.
--- NOTE | 2020-07-26 12:17 | P.PN_ITS ---
Subjective Subjective: Interval history: says she is felling O.She still has SOB but deny any chest pain, nausea,vomiting,fever,cough. U/O in last 24 h : 850 cc. She is tolerating diet. Other Vitals and labs have been reviewed. Medications: Reviewed: Yes Vitals/I&O/Wt Last Vital Signs Temp 97.8 F 07/26/20 08:00 Pulse 60 07/26/20 09:11 Resp 20 H 07/26/20 09:11 BP 109/55 07/26/20 08:00 Pulse Ox 98 07/26/20 09:11 07/25/20 07/26/20 07/26/20 22:59 06:59 14:59 Intake Total 240 / 1580 227 / 1807 250 / 250 Output Total 450 / 450 300 / 750 Balance -210 / 1130 -73 / 1057 250 / 250 Physical Exam Const: COMMON NORMALS: patient oriented x3 HENMT: COMMON NORMALS: normocephalic, atraumatic and hearing grossly normal bilaterally HEAD & SCALP: normocephalic and atraumatic Chest: COMMONS NORMALS: normal inspection of the chest CHEST: Yes Symmetrical chest wall rise Resp: COMMON NORMALS: normal respiratory effort EFFORT & INSPECTION: Yes symmetric chest movement OTHER: B/L Basal crackles Present in both Lungs palomo.Air entry B/L Diminished. Cardio: COMMON NORMALS: regular rate, regular rhythm, S1 normal heart sound present, S2 normal heart sound present, No gallops present (Cardio), No murmurs present (Cardio), No rub (Cardio) and Peripheral pulses 2+ throughout RATE: regular rate RHYTHM: regular rhythm HEART SOUNDS: S1 normal heart sound present and S2 normal heart sound present PERIPHERAL PULSES: Peripheral pulses 2+ throughout GI: COMMON NORMALS: Normal to inspection, nondistended, normoactive bowel sounds present, Soft to palpation, non-tender, No hepatosplenomegaly present and no masses AUSCULTATION: Yes normoactive bowel sounds PALPATION: Yes Soft to palpation and Yes No hepatosplenomegaly present RECTAL EXAM: deferred Extremity: NARRATIVE EXTREMITY EXAM: 1 + Pitting edema present in both lower extremity. Neuro: COMMON NORMALS: patient oriented x3 Urinary Catheter Management^: Dumont: Cath Placed During This Visit: yes Reason for Continuing Indwelling Catheter: Accurate Measurement of Urinary Output in Critically Ill Patients Urinary Catheter Date of Insertion: 07/23/20 Urinary Catheter Time of Insertion: 18:22 Data : 07/26/20 05:41 07/26/20 05:41 A&P Additional A&P Information 75-year-old female with past medical history of COPD, chronic oxygen need, diabetes and hypertension, GERD, possible CHF who underwent cardiac catheterization for abnormal EKG and elevated troponin. Coronary artery disease. Medical management is recommended. Status post cardiac catheterization. We will continue management per Dr. Chowdhury's recommendations. CHF, acute exacerbation. EF of 25 to 30%. Apical ballooning is noted. Stress induced cardiomyopathy is suspected. furosemide was discontinued today as per cardiology she was not having good u/o. She is continued of Dobutamine drip currently running at 5 mcg/kg/ min She was started on Bumex 2 mg I.V TID along with Metolazone 5 mg PO Daily. We will continue to monitor the volume status closely along with renal function. Currently Positive 534 ml. History of COPD. We will continue home medications. We will continue supplemental oxygen. No evidence of acute exacerbation at this time. History of hypothyroidism. Continue home medication. TSH within normal limits. Leukocytosis . No evidence of infection based on initial evaluation. Chest x- ray is clear. UA does not show evidence of UTI. Doppler did not reveal DVT. No evidence of cellulitis. Abdomen is soft and benign. No fever for last 24 hours. Leukocytosis improved without treatment. Probably was reactive. Hypertension. Well-controlled currently. Continue home medications. Diabetes. We will hold pioglitazone and Metformin. Continue rest of the medications and insulin sliding scale. Hypokalemia. Replace and monitor. The plan of care was discussed with the patient. She verbalized understanding and agreement. Discussed with the multidisciplinary team and Dr. Chowdhury. Code Status :Full code Disposition :Home anticipated DC in 3 days. Attestations Medical Necessity Statement*: Patient needs to be in hospital for the management of Decompenasted HFrEF amd the need for I.V Diuresis as well as inotrope support. Coding Level of Care Code Acute Accredited Legal Secretary for Lea Dinero
--- NOTE | 2020-07-26 15:15 | PC.NURSE ---
Dr. Chowdhury updated on patient condition. Patient has had 1200 ml urine output so far in shift. SBP maintaining 130-140s. No new orders received. Nurse to continue to monitor.
[2020-07-26 17:19] LABS: Glucose Point of Care 123 mg/dL (70-110)
[2020-07-26 20:45] LABS: Glucose Point of Care 133 mg/dL (70-110)
[2020-07-26] MEDS: morphine 4 mg/mL SDV 1 mL 2 MG IVP (23:04)
[2020-07-27] VITALS (22 sets, daily range): BP systolic 104–168; BP diastolic 50–105; PULSE 60–79; RESP 14–29; TEMP 36.2–36.4; O2SAT 78–97
[2020-07-27] MEDS: nitroglycerin 0.4 mg sublingual Tablet SUBLINGUAL (00:12)
[2020-07-27] MEDS: acetaminophen 325 mg Tablet 650 MG PO (00:20)
[2020-07-27] MEDS: ALPRAZolam 0.25 mg Tablet PO ×3 (00:21→14:52)
[2020-07-27 06:12] LABS: Platelet Count 262 10^3/cmm (130-400)
[2020-07-27 06:40] LABS: Glucose Point of Care 121 mg/dL (70-110)
[2020-07-27] MEDS: carvedilol 3.125 mg Tablet PO ×2 (08:09→17:42)
[2020-07-27] MEDS: lisinopril 5 mg Tablet PO (08:09)
[2020-07-27] MEDS: pregabalin 100 mg Capsule PO ×2 (08:09→14:52)
[2020-07-27] MEDS: pantoprazole DR 40 mg Tablet PO (08:09)
[2020-07-27] MEDS: atorvastatin 40 mg Tablet 20 MG PO (08:11)
[2020-07-27] MEDS: metOLazone 5 MG Tablet PO (08:11)
[2020-07-27] MEDS: sucralfate 1 gm Tablet PO ×2 (08:11→20:45)
[2020-07-27] MEDS: clopidogrel 75 mg Tablet PO (08:11)
[2020-07-27] MEDS: aspirin 81 mg Chew Tablet PO (08:11)
[2020-07-27] MEDS: duloxetine 60 mg Capsule PO (08:12)
[2020-07-27] MEDS: bumetanide 0.25 mg/mL SDV 10 mL 2 MG IV ×2 (08:14→17:42)
--- NOTE | 2020-07-27 10:38 | P.PN_ITS ---
Subjective Subjective: Interval history: acute heart failure with reduced EF Vitals/I&O/Wt Last Vital Signs Temp 97.4 F L 07/27/20 00:00 Pulse 73 07/27/20 09:00 Resp 19 H 07/27/20 09:00 BP 165/73 07/27/20 08:00 Pulse Ox 97 07/27/20 09:00 07/26/20 07/27/20 07/27/20 22:59 06:59 14:59 Intake Total 1262 / 2592 237.527 / 2829.527 480 / 480 Output Total 5775 / 5775 950 / 6725 Balance -4513 / -3183 -712.473 / -3895.473 480 / 480 Physical Exam Urinary Catheter Management^: Dumont: Cath Placed During This Visit: yes Reason for Continuing Indwelling Catheter: Accurate Measurement of Urinary Output in Critically Ill Patients Urinary Catheter Date of Insertion: 07/23/20 Urinary Catheter Time of Insertion: 18:22 Data : 07/28/20 04:06 07/28/20 04:06 A&P Assessment and plan (1) Acute HFrEF (heart failure with reduced ejection fraction): Status: Acute (2) Stress-induced cardiomyopathy: Status: Acute (3) Diabetes: Status: Acute (4) Hypertension: Status: Acute (5) COPD (chronic obstructive pulmonary disease): Status: Acute (6) Low back pain: Status: Chronic (7) Smokeless tobacco use: Status: Chronic (8) History of cerebrovascular accident: Status: Acute Differentials for patient's condition are Takotsubo cardiomyopathy versus myocarditis. Patient says she is feeling at her baseline. No chest pain. We repeated echocardiogram with contrast to rule out LV thrombus. No LV thrombus has been seen. LV systolic function seems to have improved from prior echo and now is 35 to 40%. Given normal coronary arteries on urgent catheterization done yesterday, EKG changes, elevation of troponins and apical ballooning, this pattern is consistent with stress induced cardiomyopathy. Other differential will be myocarditis. Optimizing heart failure therapy. Patient's urine output has significantly improved. Continue dobutamine drip. Continue metolazone. We will down titrate Bumex as patient is having contraction alkalosis. Bumex can be down titrated to 2 mg twice daily and depending on response can further be down titrated to 1 mg twice daily. Continue aspirin and Plavix. Continue lisinopril. Continue dobutamine for now. WBC count has improved. Strict I and O's. Attestations Medical Necessity Statement*: Care expected to cross 2 midnights. Patient presented with acute heart failure with reduced EF requiring continued IV diuresis. Coding Level of Care Code Acute Hazmat Tanker Driver for Lea Dinero Diagnoses Acute HFrEF (heart failure with reduced ejection fraction) I50.21 Stress-induced cardiomyopathy I51.81 Diabetes E11.9 Hypertension I10 COPD (chronic obstructive pulmonary disease) J44.9 Low back pain M54.5 Smokeless tobacco use Z72.0 History of cerebrovascular accident Z86.73
--- NOTE | 2020-07-27 10:46 | PC.OT ---
OT note: attempted treatment at 10:30 am. Nurse ok'd treatment. Patient sleeping soundly, however did awaken easily. Patient states that she worked earlier with PT and requested therapist to return later if possible as she wanted to continue resting. Will attempt later, schedule permittng
[2020-07-27 11:00] LABS: Anion Gap 11.4 (5-19); Blood Urea Nitrogen 32 mg/dL (8-23); Calcium 9.7 mg/dL (8.5-10.5); Chloride 90 mmol/L (98-107); Glucose 118 mg/dL (65-115); Osmolality Calculated 298 mOsm/kg (285-295); Potassium 3.4 mmol/L (3.5-5.1); Sodium 140 mmol/L (136-145)
[2020-07-27 11:04] LABS: Carbon Dioxide 42 mmol/L (22-29)
[2020-07-27 11:59] LABS: Glucose Point of Care 270 mg/dL (70-110)
--- NOTE | 2020-07-27 12:20 | PM.PN ---
Subjective Subjective: Interval history: No acute event overnight.SOB has improved.Patient is diuressing very well with good urine output on Dobutamine,bumex and metolazone. Total u/o :6.8L Negative : - 4.5 L . Has remained afebrile, and saturating well on 3Ls oxgen vai NC . Other Vitals and labs have been reviewed. Medications: Reviewed: Yes Vitals/I&O/Wt Last Vital Signs Temp 97.4 F L 07/27/20 00:00 Pulse 73 07/27/20 09:00 Resp 19 H 07/27/20 09:00 BP 165/73 07/27/20 08:00 Pulse Ox 97 07/27/20 09:00 07/26/20 07/27/20 07/27/20 22:59 06:59 14:59 Intake Total 1262 / 2592 237.527 / 2829.527 480 / 480 Output Total 5775 / 5775 950 / 6725 Balance -4513 / -3183 -712.473 / -3895.473 480 / 480 Physical Exam HENMT: COMMON NORMALS: normocephalic and atraumatic HEAD & SCALP: normocephalic and atraumatic Chest: COMMONS NORMALS: normal inspection of the chest CHEST: Yes Symmetrical chest wall rise Resp: COMMON NORMALS: normal respiratory effort EFFORT & INSPECTION: Yes symmetric chest movement OTHER: Minimal B/L Basal crackles present in both lungs palomo. Cardio: COMMON NORMALS: regular rate, regular rhythm, S1 normal heart sound present, S2 normal heart sound present, No gallops present (Cardio), No murmurs present (Cardio), No rub (Cardio) and Peripheral pulses 2+ throughout RATE: regular rate RHYTHM: regular rhythm HEART SOUNDS: S1 normal heart sound present and S2 normal heart sound present PERIPHERAL PULSES: Peripheral pulses 2+ throughout GI: COMMON NORMALS: Normal to inspection, nondistended, normoactive bowel sounds present, Soft to palpation, non-tender, No hepatosplenomegaly present and no masses AUSCULTATION: Yes normoactive bowel sounds PALPATION: Yes Soft to palpation and Yes No hepatosplenomegaly present RECTAL EXAM: deferred Extremity: NARRATIVE EXTREMITY EXAM: 1 + Pitting edema present in both lower extremity. Urinary Catheter Management^: Dumont: Cath Placed During This Visit: yes Reason for Continuing Indwelling Catheter: Accurate Measurement of Urinary Output in Critically Ill Patients Urinary Catheter Date of Insertion: 07/23/20 Urinary Catheter Time of Insertion: 18:22 Data : 07/27/20 05:56 07/27/20 05:56 A&P Additional A&P Information 75-year-old female with past medical history of COPD, chronic oxygen need, diabetes and hypertension, GERD, possible CHF who underwent cardiac catheterization for abnormal EKG and elevated troponin. Coronary artery disease. Medical management is recommended. Status post cardiac catheterization. We will continue management per Dr. Chowdhury's recommendations. CHF, acute exacerbation. EF of 25 to 30%. Apical ballooning is noted. Stress induced cardiomyopathy is suspected. furosemide was discontinued as per cardiology she was not having good u/o. She is continued of Dobutamine drip currently running at 5 mcg/kg/ min She was started on Bumex 2 mg I.V TID along with Metolazone 5 mg PO Daily.Bumex has been kept on hold starting 07/28.Given significant Diuesis and ensuing contraction alkalosis. We will continue to monitor the volume status closely along with renal function. Currently Negative : - 4.5 L . History of COPD. We will continue home medications. We will continue supplemental oxygen. No evidence of acute exacerbation at this time. History of hypothyroidism. Continue home medication. TSH within normal limits. Leukocytosis . No evidence of infection based on initial evaluation. Chest x-ray is clear. UA does not show evidence of UTI. Doppler did not reveal DVT. No evidence of cellulitis. Abdomen is soft and benign. No fever for last 24 hours. Leukocytosis improved without treatment. Probably was reactive. Hypertension. Well-controlled currently. Continue home medications. Diabetes. We will hold pioglitazone and Metformin. Continue rest of the medications and insulin sliding scale. Hypokalemia. Replace and monitor. The plan of care was discussed with the patient. She verbalized understanding and agreement. Discussed with the multidisciplinary team and Dr. Chowdhury. Code Status :Full code Disposition :Home anticipated DC in 3 days. Attestations Medical Necessity Statement*: Patient needs to be in hospital for the management of Decompenasted HFrEF amd the need for I.V Diuresis as well as inotrope support. Coding Level of Care Code Acute Police Detention Attendant for Lea Fwd Exam Detailed
[2020-07-27] MEDS: DOBUTamine drip 500 MG/250 ML PREMIX 15.8 MG IV (14:53)
[2020-07-27 16:33] LABS: Glucose Point of Care 180 mg/dL (70-110)
[2020-07-27] MEDS: potassium chloride oral liq 20 mEq/15 mL UDC 40 MEQ PO (18:40)
[2020-07-27] MEDS: hyDRALAzine 25 mg Tablet PO (20:45)
[2020-07-27] MEDS: trazodone 150 mg Tablet PO (20:45)
[2020-07-27 21:12] LABS: Glucose Point of Care 232 mg/dL (70-110)
[2020-07-28] VITALS (32 sets, daily range): BP systolic 111–168; BP diastolic 50–94; PULSE 56–83; RESP 11–30; TEMP 36.6–37.1; O2SAT 76–98
[2020-07-28] MEDS: morphine 4 mg/mL SDV 1 mL 2 MG IVP ×3 (01:27→20:09)
[2020-07-28 04:27] LABS: Basophils # 0.1 10^3/uL (0.0-0.1); Basophils % 0.6 %; Eosinophils # 0.1 10^3/uL (0.0-0.8); Eosinophils % 1.5 %; Hematocrit 38.6 % (37.0-47.0); Hemoglobin 11.4 g/dL (11.5-15.3); Lymphocytes # 1.8 10^3/uL (0.8-4.8); Lymphocytes % 23.4 %; Mean Corpuscular HGB Conc 29.5 g/dL (30.0-36.0); Mean Corpuscular Hemoglobin 25.7 pg (28.0-34.0); Mean Corpuscular Volume 86.9 fL (81-99); Mean Platelet Volume 10.1 fL (7.4-10.4); Monocytes # 1.1 10^3/uL (0.2-0.9); Monocytes % 13.4 %; Neutrophils % 60.3 %; Nucleated Red Blood Cells % 0 %; Platelet Count 281 10^3/cmm (130-400); Red Blood Count 4.44 10^6/uL (4.1-5.3); Red Cell Distribution Width 17.2 % (12.1-15.1); White Blood Count 7.8 10^3/uL (4.0-10.0)
[2020-07-28 04:49] LABS: Anion Gap 10.7 (5-19); Blood Urea Nitrogen 33 mg/dL (8-23); Calcium 10.3 mg/dL (8.5-10.5); Chloride 90 mmol/L (98-107); Glucose 155 mg/dL (65-115); Magnesium 1.6 mg/dL (1.7-2.3); Osmolality Calculated 302 mOsm/kg (285-295); Potassium 3.7 mmol/L (3.5-5.1); Sodium 141 mmol/L (136-145)
[2020-07-28 07:00] LABS: Carbon Dioxide 44 mmol/L (22-29)
[2020-07-28] MEDS: DOBUTamine drip 500 MG/250 ML PREMIX 15.8 MG IV ×2 (07:09→23:50)
[2020-07-28 08:04] LABS: Glucose Point of Care 149 mg/dL (70-110)
[2020-07-28] MEDS: pantoprazole DR 40 mg Tablet PO (08:27)
[2020-07-28] MEDS: clopidogrel 75 mg Tablet PO (08:27)
[2020-07-28] MEDS: duloxetine 60 mg Capsule PO (08:27)
[2020-07-28] MEDS: atorvastatin 40 mg Tablet 20 MG PO (08:27)
[2020-07-28] MEDS: hyDRALAzine 25 mg Tablet PO ×3 (08:34→20:09)
[2020-07-28] MEDS: aspirin 81 mg Chew Tablet PO (08:34)
[2020-07-28] MEDS: metOLazone 5 MG Tablet PO (08:35)
[2020-07-28] MEDS: sucralfate 1 gm Tablet PO ×2 (08:35→20:09)
[2020-07-28] MEDS: lisinopril 5 mg Tablet PO (08:35)
[2020-07-28] MEDS: carvedilol 3.125 mg Tablet PO ×2 (08:35→17:26)
--- NOTE | 2020-07-28 09:43 | DCPLANNER ---
IMM completed with pt on 07/28/2020 @ 8350. Copy of rights given to pt.
[2020-07-28 11:44] LABS: Glucose Point of Care 170 mg/dL (70-110)
--- NOTE | 2020-07-28 14:13 | P.PN_ITS ---
Subjective Subjective: Interval history: is doing fine. SOB has improved. Urine out continues to be good on Dobutamine drip and metolazone. Net Negative : 5.8Ls Has remained afebrile,oter vitals are stable. Labs have been reviewed. Medications: Reviewed: Yes Vitals/I&O/Wt Last Vital Signs Temp 98.6 F 07/28/20 11:41 Pulse 73 07/28/20 13:30 Resp 20 H 07/28/20 13:30 BP 111/68 07/28/20 11:41 Pulse Ox 97 07/28/20 13:30 07/27/20 07/28/20 07/28/20 22:59 06:59 14:59 Intake Total 540 / 1510 250 / 1760 1100 / 1100 Output Total 1260 / 2560 1000 / 3560 1850 / 1850 Balance -720 / -1050 -750 / -1800 -750 / -750 Physical Exam Const: COMMON NORMALS: patient oriented x3 HENMT: COMMON NORMALS: normocephalic and atraumatic HEAD & SCALP: normocephalic and atraumatic Chest: COMMONS NORMALS: normal inspection of the chest CHEST: Yes Symmetrical chest wall rise Resp: COMMON NORMALS: normal respiratory effort and clear to auscultation bilaterally EFFORT & INSPECTION: Yes symmetric chest movement AUSCULTATION: clear to auscultation bilaterally OTHER: Minimal B/L Basal crackles present in both lungs palomo. Cardio: COMMON NORMALS: regular rate, regular rhythm, S1 normal heart sound present, S2 normal heart sound present, No rub (Cardio) and Peripheral pulses 2+ throughout RATE: regular rate RHYTHM: regular rhythm HEART SOUNDS: S1 normal heart sound present and S2 normal heart sound present PERIPHERAL PULSES: Peripheral pulses 2+ throughout GI: COMMON NORMALS: Normal to inspection, nondistended, normoactive bowel sounds present, Soft to palpation, non-tender, No hepatosplenomegaly present and no masses AUSCULTATION: Yes normoactive bowel sounds PALPATION: Yes Soft to palpation and Yes No hepatosplenomegaly present RECTAL EXAM: deferred Extremity: NARRATIVE EXTREMITY EXAM: 1+ B/L L/E Pitting edema present. Neuro: COMMON NORMALS: patient oriented x3 Urinary Catheter Management^: Dumont: Cath Placed During This Visit: yes Reason for Continuing Indwelling Catheter: Acute Urinary Retention or Obstruction Urinary Catheter Date of Insertion: 07/23/20 Urinary Catheter Time of Insertion: 18:22 Data : 07/28/20 04:06 07/28/20 04:06 A&P Additional A&P Information 75-year-old female with past medical history of COPD, chronic oxygen need, diabetes and hypertension, GERD, possible CHF who underwent cardiac catheterization for abnormal EKG and elevated troponin. Coronary artery disease. Medical management is recommended. Status post cardiac catheterization. We will continue management per Dr. Chowdhury's recommendations. CHF, acute exacerbation. EF of 25 to 30%. Apical ballooning is noted. Stress induced cardiomyopathy is suspected. furosemide was discontinued as per cardiology she was not having good u/o. She is continued of Dobutamine drip currently running at 5 mcg/kg/ min She was started on Bumex 2 mg I.V TID along with Metolazone 5 mg PO Daily.Bumex has been kept on hold starting 07/28.Given significant Diuresis and ensuing contraction alkalosis will give her 1 dose of acetazolamide 250 mg po . We will continue to monitor the volume status closely along with renal function. Currently Negative : 5.8 L . History of COPD. We will continue home medications. We will continue s upplemental oxygen. No evidence of acute exacerbation at this time. History of hypothyroidism. Continue home medication. TSH within normal limits. Leukocytosis . No evidence of infection based on initial evaluation. Chest x- ray is clear. UA does not show evidence of UTI. Doppler did not reveal DVT. No evidence of cellulitis. Abdomen is soft and benign. No fever for last 24 hours. Leukocytosis improved without treatment. Probably was reactive. Hypertension. Well-controlled currently. Continue home medications. Diabetes. We will hold pioglitazone and Metformin. Continue rest of the medications and insulin sliding scale. Hypokalemia. Replace and monitor. The plan of care was discussed with the patient. She verbalized understanding and agreement. Discussed with the multidisciplinary team and Dr. Chowdhury. Code Status :Full code Disposition :Home anticipated DC in 3 days. Attestations Medical Necessity Statement*: Patient needs to be in hospital for the management of Decompensated HFrEF Coding Level of Care Code Acute Ornamental Bronze Worker for [facility]
--- NOTE | 2020-07-28 15:28 | P.PN_ITS ---
Subjective Subjective: Interval history: Patient is doing well. Denies any complaints of chest pain, shortness of breath or palpitations. Her diuretics have been held because of contraction alkalosis. Vitals/I&O/Wt Last Vital Signs Temp 98.6 F 07/28/20 11:41 Pulse 73 07/28/20 13:30 Resp 18 07/28/20 15:24 BP 111/68 07/28/20 11:41 Pulse Ox 97 07/28/20 13:30 07/28/20 07/28/20 07/28/20 06:59 14:59 22:59 Intake Total 250 / 1760 1100 / 1100 Output Total 1000 / 3560 1850 / 1850 Balance -750 / -1800 -750 / -750 Physical Exam Narrative: EXAM NARRATIVE: Const COMMON NORMALS: patient oriented x3 HENMT COMMON NORMALS: normocephalic, atraumatic and hearing grossly normal bilaterally HEAD & SCALP: normocephalic and atraumatic Chest COMMONS NORMALS: normal inspection of the chest CHEST: Yes Symmetrical chest wall rise Resp COMMON NORMALS: normal respiratory effort EFFORT & INSPECTION: Yes symmetric chest movement OTHER: B/L Basal crackles Present in both Lungs palomo.Air entry B/L Diminished. Cardio COMMON NORMALS: regular rate, regular rhythm, S1 normal heart sound present, S2 normal heart sound present, No gallops present (Cardio), No murmurs present (Cardio), No rub (Cardio) and Peripheral pulses 2+ throughout RATE: regular rate RHYTHM: regular rhythm HEART SOUNDS: S1 normal heart sound present and S2 normal heart sound present PERIPHERAL PULSES: Peripheral pulses 2+ throughout GI COMMON NORMALS: Normal to inspection, nondistended, normoactive bowel sounds present, Soft to palpation, non-tender, No hepatosplenomegaly present and no masses AUSCULTATION: Yes normoactive bowel sounds PALPATION: Yes Soft to palpation and Yes No hepatosplenomegaly present RECTAL EXAM: deferred Extremity NARRATIVE EXTREMITY EXAM: 1 + Pitting edema present in both lower extremity. Neuro COMMON NORMALS: patient oriented x3 Urinary Catheter Management^: Dumont: Cath Placed During This Visit: yes Reason for Continuing Indwelling Catheter: Acute Urinary Retention or Obstruction Urinary Catheter Date of Insertion: 07/23/20 Urinary Catheter Time of Insertion: 18:22 Data : 07/29/20 03:10 07/29/20 03:10 A&P Assessment and plan (1) Acute HFrEF (heart failure with reduced ejection fraction): Status: Acute (2) Stress-induced cardiomyopathy: Status: Acute (3) Diabetes: Status: Acute (4) Hypertension: Status: Acute (5) COPD (chronic obstructive pulmonary disease): Status: Acute (6) Low back pain: Status: Chronic (7) Smokeless tobacco use: Status: Chronic (8) History of cerebrovascular accident: Status: Acute Differentials for patient's condition are Takotsubo cardiomyopathy versus myocarditis. Patient says she is feeling at her baseline. No chest pain. We repeated echocardiogram with contrast to rule out LV thrombus. No LV thrombus has been seen. LV systolic function seems to have improved from prior echo and now is 35 to 40%. Given normal coronary arteries on urgent catheterization done, EKG changes, elevation of troponins and apical ballooning, this pattern is consistent with stress induced cardiomyopathy. Other differential will be myocarditis. Optimizing heart failure therapy. Patient's urine output has significantly improved. Hold dobutamine gtt. Patient has developed contraction alkalosis. Continue metolazone. Will downtitrate the bumex. Bumex can be down titrated to 2 mg twice daily and depending on response can further be down titrated to 1 mg twice daily. Continue aspirin and Plavix. Continue lisinopril. Continue dobutamine for now. WBC count has improved. Strict I and O's. Attestations Medical Necessity Statement*: Care expected to cross 2 midnights. Patient presented with acute heart failure with reduced EF and stress cardiomyopathy requiring IV therapy. 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
[2020-07-28 16:05] LABS: Glucose Point of Care 151 mg/dL (70-110)
[2020-07-28] MEDS: acetaZOLAMIDE 250 mg Tablet PO (20:08)
[2020-07-28] MEDS: trazodone 150 mg Tablet PO (20:09)
[2020-07-28] MEDS: magnesium sulfate premix 2 GM/50 ML PIGGYBACK IV (20:10)
[2020-07-28 21:00] LABS: Glucose Point of Care 216 mg/dL (70-110)
[2020-07-28] MEDS: albuterol 8 gm MDI 2 PUFF INHALATION (23:30)
[2020-07-29] VITALS (27 sets, daily range): BP systolic 125–142; BP diastolic 50–67; PULSE 55–84; RESP 11–24; TEMP 36.4–37.2; O2SAT 89–97
[2020-07-29] MEDS: morphine 4 mg/mL SDV 1 mL 2 MG IVP (01:21)
[2020-07-29 04:43] LABS: Basophils # 0.1 10^3/uL (0.0-0.1); Basophils % 0.9 %; Eosinophils # 0.3 10^3/uL (0.0-0.8); Hematocrit 37.9 % (37.0-47.0); Hemoglobin 11.4 g/dL (11.5-15.3); Lymphocytes # 2.2 10^3/uL (0.8-4.8); Lymphocytes % 26.5 %; Mean Corpuscular HGB Conc 30.1 g/dL (30.0-36.0); Mean Corpuscular Hemoglobin 26.3 pg (28.0-34.0); Mean Corpuscular Volume 87.3 fL (81-99); Mean Platelet Volume 9.9 fL (7.4-10.4); Monocytes # 1.1 10^3/uL (0.2-0.9); Monocytes % 13.5 %; Neutrophils # 4.65 10^3/uL (1.8-7.7); Neutrophils % 54.9 %; Nucleated Red Blood Cells % 0 %; Platelet Count 291 10^3/cmm (130-400); Red Blood Count 4.34 10^6/uL (4.1-5.3); Red Cell Distribution Width 17.2 % (12.1-15.1); White Blood Count 8.5 10^3/uL (4.0-10.0)
[2020-07-29 05:09] LABS: Anion Gap 11.5 (5-19); Blood Urea Nitrogen 36 mg/dL (8-23); Calcium 10.6 mg/dL (8.5-10.5); Chloride 88 mmol/L (98-107); Glucose 143 mg/dL (65-115); Magnesium 2.2 mg/dL (1.7-2.3); Osmolality Calculated 301 mOsm/kg (285-295); Potassium 3.5 mmol/L (3.5-5.1); Sodium 140 mmol/L (136-145)
[2020-07-29 05:21] LABS: Carbon Dioxide 44 mmol/L (22-29)
[2020-07-29 06:47] LABS: Glucose Point of Care 142 mg/dL (70-110)
[2020-07-29] MEDS: carvedilol 3.125 mg Tablet PO ×2 (08:33→17:26)
[2020-07-29] MEDS: metOLazone 5 MG Tablet PO (08:33)
[2020-07-29] MEDS: sucralfate 1 gm Tablet PO ×2 (08:33→20:52)
[2020-07-29] MEDS: pantoprazole DR 40 mg Tablet PO (08:33)
[2020-07-29] MEDS: lisinopril 5 mg Tablet PO (08:33)
[2020-07-29] MEDS: atorvastatin 40 mg Tablet 20 MG PO (08:33)
[2020-07-29] MEDS: sitagliptin 100 mg Tablet PO (08:33)
[2020-07-29] MEDS: acetaminophen 325 mg Tablet 650 MG PO (08:33)
[2020-07-29] MEDS: clopidogrel 75 mg Tablet PO (08:34)
[2020-07-29] MEDS: bumetanide 0.25 mg/mL SDV 10 mL 2 MG IV (08:34)
[2020-07-29] MEDS: hyDRALAzine 25 mg Tablet PO ×3 (08:34→20:52)
[2020-07-29] MEDS: duloxetine 60 mg Capsule PO (08:34)
[2020-07-29] MEDS: aspirin 81 mg Chew Tablet PO (08:34)
[2020-07-29] MEDS: albuterol 8 gm MDI 2 PUFF INHALATION (09:30)
--- NOTE | 2020-07-29 10:05 | PC.NURSE ---
DOBUTAMINE GTT STOPPED PER DR. GHOSH.
[2020-07-29 10:47] LABS: Glucose Point of Care 271 mg/dL (70-110)
--- NOTE | 2020-07-29 10:53 | PC.NURSE ---
PLEASE HOLD TODAYS PO DOSE OF BUMEX SINCE IV ADMINISTRATION HAS ALREADY OCCURRED THIS MORNING PER DR. GHOSH.
--- NOTE | 2020-07-29 13:09 | PM.PN ---
Subjective Subjective: Interval history: SOB has improved.Currently she is doing well. Vitals have remained stable. Labs have been reviewed Medications: Reviewed: Yes Vitals/I&O/Wt Last Vital Signs Temp 97.6 F 07/29/20 12:00 Pulse 59 L 07/29/20 12:00 Resp 18 07/29/20 12:00 BP 134/52 07/29/20 12:00 Pulse Ox 94 07/29/20 12:00 07/28/20 07/29/20 07/29/20 22:59 06:59 14:59 Intake Total 690 / 1790 100 / 1890 518.527 / 518.527 Output Total 850 / 2700 750 / 3450 Balance -160 / -910 -650 / -1560 518.527 / 518.527 Physical Exam Const: COMMON NORMALS: patient oriented x3 HENMT: COMMON NORMALS: normocephalic and atraumatic HEAD & SCALP: normocephalic and atraumatic Chest: COMMONS NORMALS: normal inspection of the chest CHEST: Yes Symmetrical chest wall rise Resp: COMMON NORMALS: normal respiratory effort and clear to auscultation bilaterally EFFORT & INSPECTION: Yes symmetric chest movement AUSCULTATION: clear to auscultation bilaterally OTHER: Diminished Breath sounds B/L.Minimal Basal crackles present. Cardio: COMMON NORMALS: regular rate, regular rhythm, S1 normal heart sound present, S2 normal heart sound present, No gallops present (Cardio), No murmurs present (Cardio), No rub (Cardio) and Peripheral pulses 2+ throughout RATE: regular rate RHYTHM: regular rhythm HEART SOUNDS: S1 normal heart sound present and S2 normal heart sound present PERIPHERAL PULSES: Peripheral pulses 2+ throughout GI: COMMON NORMALS: Normal to inspection, nondistended, normoactive bowel sounds present, Soft to palpation, non-tender, No hepatosplenomegaly present and no masses AUSCULTATION: Yes normoactive bowel sounds PALPATION: Yes Soft to palpation and Yes No hepatosplenomegaly present RECTAL EXAM: deferred Extremity: NARRATIVE EXTREMITY EXAM: 1+ B/L Pitting edema present in both L/E. Neuro: COMMON NORMALS: patient oriented x3 Urinary Catheter Management^: Dumont: Cath Placed During This Visit: yes Reason for Continuing Indwelling Catheter: Acute Urinary Retention or Obstruction Urinary Catheter Date of Insertion: 07/23/20 Urinary Catheter Time of Insertion: 18:22 Data : 07/29/20 03:10 07/29/20 03:10 A&P Additional A&P Information 75-year-old female with past medical history of COPD, chronic oxygen need, diabetes and hypertension, GERD, possible CHF who underwent cardiac catheterization for abnormal EKG and elevated troponin. Coronary artery disease. Medical management is recommended.Status post cardiac catheterization. We will continue management per Dr. Chowdhury's recommendations. CHF, acute exacerbation. EF of 25 to 30%. Apical ballooning is noted. Stress induced cardiomyopathy is suspected. furosemide was discontinued as per cardiology she was not having good u/o. Dobutamine drip was stopped on 07/29 She was started on Bumex 2 mg I.V TID along with Metolazone 5 mg PO Daily.Bumex has been kept on hold starting 07/28.Given significant Diuresis and ensuing contraction alkalosis was give 1 dose of acetazolamide 250 mg po on 07/28. We will continue to monitor the volume status closely along with renal function. Currently Negative : 5.8 L . Will dc the patient on Bumex 2 mg po daily.She will follow with [facility] in 1 week with repeat BMP. History of COPD. We will continue home medications. We will continue supplemental oxygen. No evidence of acute exacerbation at this time. History of hypothyroidism. Continue home medication. TSH within normal limits. Leukocytosis . No evidence of infection. Likely Reactive Chest x-ray is clear. UA Clean. Doppler did not reveal DVT. No evidence of cellulitis. Abdomen is soft and benign. No fever Will continue to hold Abxs Hypertension: Well-controlled currently. Continue home medications as well as hydralazine 25 MG TID Diabetes. We will hold pioglitazone and Metformin. Continue rest of the medications and insulin sliding scale. Hypokalemia. Replace and monitor. Code Status :Full code Disposition :Home anticipated DC on 07/30 Attestations Medical Necessity Statement*: Patient needs to be in hospital for the management of HF. 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
[2020-07-29 16:49] LABS: Glucose Point of Care 140 mg/dL (70-110)
[2020-07-29 20:59] LABS: Glucose Point of Care 179 mg/dL (70-110)
--- NOTE | 2020-07-29 21:32 | PM.PN ---
Subjective Subjective: Interval history: Patient is overall doing well. She denies any complaints of chest pain, shortness of breath or palpitations. Vitals/I&O/Wt Last Vital Signs Temp 98.9 F 07/29/20 20:00 Pulse 65 07/29/20 21:00 Resp 19 H 07/29/20 21:00 BP 142/64 07/29/20 16:00 Pulse Ox 96 07/29/20 21:00 07/29/20 07/29/20 07/29/20 06:59 14:59 22:59 Intake Total 100 / 1890 758.527 / 758.527 240 / 998.527 Output Total 750 / 3450 650 / 650 Balance -650 / -1560 758.527 / 758.527 -410 / 348.527 Physical Exam Narrative: EXAM NARRATIVE: GENERAL: Patient is alert, awake and oriented x3. [] NECK: No jugular vein distension. [] HEENT: No cyanosis. No icterus. No pallor. [] HEART: Regular S1 and S2. No murmur, rub or gallop. [] LUNGS: Clear to auscultate bilaterally. [] ABDOMEN: Soft, nontender and nondistended. Positive bowel sounds. No guarding, rebound or tenderness. [] CENTRAL NERVOUS SYSTEM: Grossly nonfocal. [] EXTREMITIES: Lower extremities with 1+ edema bilaterally. Pulses palpable in the lower extremities, both dorsalis pedis and posterior tibial. [] Urinary Catheter Management^: Dumont: Cath Placed During This Visit: yes Reason for Continuing Indwelling Catheter: Accurate Measurement of Urinary Output in Critically Ill Patients Urinary Catheter Date of Insertion: 07/23/20 Urinary Catheter Time of Insertion: 18:22 Data : 07/29/20 03:10 07/29/20 03:10 A&P Assessment and plan (1) Acute HFrEF (heart failure with reduced ejection fraction): Status: Acute (2) Stress-induced cardiomyopathy: Status: Acute (3) Diabetes: Status: Acute (4) Hypertension: Status: Acute (5) COPD (chronic obstructive pulmonary disease): Status: Acute (6) Low back pain: Status: Chronic (7) Smokeless tobacco use: Status: Chronic (8) History of cerebrovascular accident: Status: Acute Differentials for patient's condition are Takotsubo cardiomyopathy versus myocarditis. Patient says she is feeling at her baseline. No chest pain. We repeated echocardiogram with contrast to rule out LV thrombus. No LV thrombus has been seen. LV systolic function seems to have improved from prior echo and now is 35 to 40%. Given normal coronary arteries on urgent catheterization done, EKG changes, elevation of troponins and apical ballooning, this pattern is consistent with stress induced cardiomyopathy. Other differential will be myocarditis. Optimizing heart failure therapy. Can switch Bumex to 1 mg twice daily p.o. Metolazone 2.5 mg daily. Patient is ready to be discharged from cardiac standpoint. Outpatient BMP and 1 week. Follow-up with our office. Continue aspirin and Plavix. Continue lisinopril. WBC count has improved. Strict I and O's. Attestations Medical Necessity Statement*: Care expected to cross 2 midnights. Patient presented with acute heart failure with reduced EF. Required IV diuresis. 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
[2020-07-30] VITALS (10 sets, daily range): BP systolic 132–153; BP diastolic 63–86; PULSE 61–72; RESP 15–25; TEMP 36.3–36.9; O2SAT 83–98
[2020-07-30] MEDS: acetaminophen 325 mg Tablet 650 MG PO (03:14)
[2020-07-30] MEDS: trazodone 150 mg Tablet PO (03:15)
[2020-07-30] MEDS: TRAMadol 50 mg Tablet PO (04:30)
[2020-07-30 06:48] LABS: Glucose Point of Care 171 mg/dL (70-110)
--- NOTE | 2020-07-30 08:30 | PM.PN ---
Subjective Subjective: Interval history: Patient is doing well. She denies any complaints of chest pain, shortness of breath or palpitations. Medications: Reviewed: Yes Vitals/I&O/Wt Last Vital Signs Temp 98.0 F 07/30/20 05:00 Pulse 70 07/30/20 06:00 Resp 15 07/30/20 06:00 BP 152/78 07/30/20 06:00 Pulse Ox 92 07/30/20 06:00 07/29/20 07/30/20 07/30/20 22:59 06:59 14:59 Intake Total 240 / 998.527 0 / 998.527 Output Total 650 / 650 975 / 1625 Balance -410 / 348.527 -975 / -626.473 Physical Exam Narrative: EXAM NARRATIVE: GENERAL: Patient is alert, awake and oriented x3. [] NECK: No jugular vein distension. [] HEENT: No cyanosis. No icterus. No pallor. [] HEART: Regular S1 and S2. No murmur, rub or gallop. [] LUNGS: Clear to auscultate bilaterally. [] ABDOMEN: Soft, nontender and nondistended. Positive bowel sounds. No guarding, rebound or tenderness. [] CENTRAL NERVOUS SYSTEM: Grossly nonfocal. [] EXTREMITIES: Lower extremities with 1+ edema bilaterally. Pulses palpable in the lower extremities, both dorsalis pedis and posterior tibial. [] Urinary Catheter Management^: Dumont: Cath Placed During This Visit: yes Reason for Continuing Indwelling Catheter: Accurate Measurement of Urinary Output in Critically Ill Patients Urinary Catheter Date of Insertion: 07/23/20 Urinary Catheter Time of Insertion: 18:22 Data : 07/29/20 03:10 07/29/20 03:10 A&P Assessment and plan (1) Acute HFrEF (heart failure with reduced ejection fraction): Status: Acute (2) Stress-induced cardiomyopathy: Status: Acute (3) Diabetes: Status: Acute (4) Hypertension: Status: Acute (5) COPD (chronic obstructive pulmonary disease): Status: Acute (6) Low back pain: Status: Chronic (7) Smokeless tobacco use: Status: Chronic (8) History of cerebrovascular accident: Status: Acute Differentials for patient's condition are Takotsubo cardiomyopathy versus myocarditis. Patient says she is feeling at her baseline. No chest pain. We repeated echocardiogram with contrast to rule out LV thrombus. No LV thrombus has been seen. LV systolic function seems to have improved from prior echo and now is 35 to 40%. Given normal coronary arteries on urgent catheterization done, EKG changes, elevation of troponins and apical ballooning, this pattern is consistent with stress induced cardiomyopathy. Other differential will be myocarditis. Optimizing heart failure therapy. Can switch Bumex to 1 mg twice daily p.o. Metolazone 2.5 mg daily. Patient is ready to be discharged from cardiac standpoint. Outpatient BMP and 1 week. Follow-up with our office. Continue aspirin and Plavix. Continue lisinopril. WBC count has improved. Strict I and O's. Attestations Medical Necessity Statement*: Care expected to cross 2 midnights. Patient presented with acute heart failure with reduced EF. Required IV diuresis and angiogram. 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
[2020-07-30] MEDS: atorvastatin 40 mg Tablet 20 MG PO (08:52)
[2020-07-30] MEDS: hyDRALAzine 25 mg Tablet PO (08:52)
[2020-07-30] MEDS: duloxetine 60 mg Capsule PO (08:54)
[2020-07-30] MEDS: lisinopril 5 mg Tablet PO (08:54)
[2020-07-30] MEDS: aspirin 81 mg Chew Tablet PO (08:54)
[2020-07-30] MEDS: carvedilol 3.125 mg Tablet PO (08:54)
[2020-07-30] MEDS: metOLazone 5 MG Tablet PO (08:54)
[2020-07-30] MEDS: pantoprazole DR 40 mg Tablet PO (08:54)
[2020-07-30] MEDS: clopidogrel 75 mg Tablet PO (08:54)
[2020-07-30] MEDS: sitagliptin 100 mg Tablet PO (08:54)
[2020-07-30] MEDS: sucralfate 1 gm Tablet PO (08:56)
--- NOTE | 2020-07-30 09:27 | PC.SOCIAL ---
IMM Updated Updated pt on Pg 2 IMM. Provided pt a copy. No questions voiced. Signed, dated, & timed copy in chart.
--- NOTE | 2020-07-30 09:35 | PC.CHAP ---
Pastoral Care Encounter/Spiritual Assessment Type of Contact [] Declined supervisor coin machine visit [] Patient/Family/Request visit [] Outpatient visit [] Follow-up visit [] Physician referral [] Code/Alert [] Routine visit [] Staff referral [] Actively dying [] Patient sleeping [] Family support [] [] Out of room [] Palliative care [] [] Receiving care in room [] Pre-surgical visit [] Trauma [] Long length of stay [] ICU visit [] Other: Relational/Emotional Strength [] Patient feels connected with others/family/visitors/staff [] Distress [] Loneliness/isolation [] Abandonment Spirituality of Patient [] Person of Maria E [] Attends Nondenominational of their Maria E [] Believes in Prayer [] Reads Bible or Advent materials [] There are Spiritual issues to be addressed Nuclear Medicine Tech Interventions [] Prayer [] Active listening [] Non-anxious presence [] Spiritual/emotional support [] Crisis/trauma care [] Spiritual counseling [] Bereavement support [] Provided bereavement packet [x] Provided Bible/devotional materials [] Provided toy/stuffed animal, coloring book to patient or family member [] Provided Communion [] Anointing/Twisp [] Salvation x[] Completed spiritual assessment [] Other: Impact on Illness or Injury [] Angry [] Fearful [] Anxious [] Often cries [] Exhaustion [] Unable to work [] Unable to attend uatsdin [] Unable to walk/stand [] Unable to read [] Unable to drive [] Unable to eat/drink [] Unable to sleep [] Unable to be with family [] Patient intubated [] Other: Summary Time spent with patient
[2020-07-30 10:16] LABS: Basophils # 0.1 10^3/uL (0.0-0.1); Basophils % 0.7 %; Eosinophils # 0.2 10^3/uL (0.0-0.8); Eosinophils % 2.5 %; Hematocrit 40.2 % (37.0-47.0); Hemoglobin 12.2 g/dL (11.5-15.3); Lymphocytes # 1.8 10^3/uL (0.8-4.8); Lymphocytes % 20.3 %; Mean Corpuscular HGB Conc 30.3 g/dL (30.0-36.0); Mean Corpuscular Volume 85.7 fL (81-99); Mean Platelet Volume 10.1 fL (7.4-10.4); Monocytes # 0.9 10^3/uL (0.2-0.9); Monocytes % 9.8 %; Neutrophils # 5.83 10^3/uL (1.8-7.7); Neutrophils % 64.9 %; Nucleated Red Blood Cells % 0 %; Platelet Count 376 10^3/cmm (130-400); Red Blood Count 4.69 10^6/uL (4.1-5.3); Red Cell Distribution Width 17.1 % (12.1-15.1)
[2020-07-30 10:42] LABS: Blood Urea Nitrogen 37 mg/dL (8-23); Calcium 10.7 mg/dL (8.5-10.5); Carbon Dioxide 38 mmol/L (22-29); Chloride 86 mmol/L (98-107); Glucose 193 mg/dL (65-115); Osmolality Calculated 296 mOsm/kg (285-295); Sodium 136 mmol/L (136-145)
[2020-07-30 11:03] LABS: Adenovirus Not Detected (Not Detected); Human Metapneumovirus Not Detected (Not Detected); Human Parainflu Virus 1 Not Detected (Not Detected); Human Parainflu Virus 2 Not Detected (Not Detected); Human Parainflu Virus 3 Not Detected (Not Detected); Human Rsv A Not Detected (Not Detected); Influenza A Not Detected (Not Detected); Influenza B Not Detected (Not Detected); Rhinovirus/Enterovirus Not Detected (Not Detected)
[2020-07-30 11:35] LABS: Glucose Point of Care 166 mg/dL (70-110)
[2020-07-30] MEDS: bumetanide 1 mg Tablet 2 MG PO (11:45)
--- NOTE | 2020-07-30 13:09 | PC.NURSE ---
spoke to Dr Shore about patient having clay instruction to dc clay prior to discharge.
--- NOTE | 2020-07-30 14:51 | PC.NURSE ---
Patient discharged home at this time care provided by outside services and family. patient and daughter provided with discharge instructions new medication instructions and all other care education. patient and daughter verbalized understanding of instructions given. Patient assisted with dressing by daughter and assisted to wheel chair by this nurse. Patient accompanied to Private vehicle by staff. Patient alert oriented and in stable condition; all discharge instructions and belongings in hands.
--- NOTE | 2020-08-12 23:51 | P.DS_ITS ---
Discharge Providers Date of Admission: 07/23/20 15:06 Date of Discharge: 07/30/2020 Attending Provider at Admission: Brenden Chowdhury M.D Attending Provider at Discharge: Brenden Chowdhury M.D Primary Care Provider: Nazia Jha Diagnoses at Discharge Discharge Diagnosis (1) Acute HFrEF (heart failure with reduced ejection fraction): Status: Acute (2) Stress-induced cardiomyopathy: (3) Diabetes: (4) Hypertension: (5) COPD (chronic obstructive pulmonary disease): (6) Low back pain: (7) Smokeless tobacco use: (8) History of cerebrovascular accident: Reason for Visit Reason for Visit: CHEST PAIN/ ARM AND BACK PAIN Brief History: 75-year-old female who presented to the ED with some shortness of breath, abdominal pain and chest pain. Patient has a past medical history of COPD, diabetes, hypertension, hyperlipidemia and GERD. Patient is currently on 3 L of oxygen at home. She states her shortness of breath is a chronic issue and this morning she feels like she was having some increased shortness of breath, abdominal pain with some chest pain on the left side. Her initial troponin was 60 and the trended up to 140. EKG showed dynamic ST-T wave changes in anterior leads. Patient is a poor historian and assess her pain was not resolving on nitro drip, she was brought to [facility]. Hospital Course Hospital Course 75-year-old female who presented to the ED with some shortness of breath, abd ominal pain and chest pain. Patient has a past medical history of COPD, diabetes, hypertension, hyperlipidemia and GERD. Patient is currently on 3 L of oxygen at home. She states her shortness of breath is a chronic issue and this morning she feels like she was having some increased shortness of breath, abdominal pain with some chest pain on the left side. Her initial troponin was 60 and the trended up to 140. EKG showed dynamic ST-T wave changes in anterior leads. Patient is a poor historian and assess her pain was not resolving on nitro drip, she was brought to [facility]. Coronary angiography shows patent coronary arteries. She has a nondominant RCA which has mid 50 to 60% stenosis. LAD and left circumflex artery are patent. LVEDP was elevated. ECHO showed severely reduced EF with apical akinesis and hyperdynamic basal segments consistent with Takotsubo cardiomyopathy. Initial EF was 25-30% that improved on subsequent echo to 35-40%. Patient had significant diuresis with bumex, metolazone and dobutamine gtt. Dobutamine was weaned off. She was euvolemic and was discharged on PO bumex and metolazone. Physical Exam Narrative: EXAM NARRATIVE: GENERAL: Patient is alert, awake and oriented x3. [] NECK: No jugular vein distension. [] HEENT: No cyanosis. No icterus. No pallor. [] HEART: Regular S1 and S2. No murmur, rub or gallop. [] LUNGS: Clear to auscultate bilaterally. [] ABDOMEN: Soft, nontender and nondistended. Positive bowel sounds. No guarding, rebound or tenderness. [] CENTRAL NERVOUS SYSTEM: Grossly nonfocal. [] EXTREMITIES: Lower extremities with 1+ edema bilaterally. Pulses palpable in the lower extremities, both dorsalis pedis and posterior tibial. [] Urinary Catheter Management^: Dumont: Cath Placed During This Visit: yes, but has since been removed by the nurse Reason for Continuing Indwelling Catheter: Accurate Measurement of Urinary Output in Critically Ill Patients Urinary Catheter Date of Insertion: 07/23/20 Urinary Catheter Time of Insertion: 18:22 Date Urinary Catheter Removed: 07/30/20 Time Urinary Catheter Discontinued: 13:05 Discharge Data Data Completed and Pending: Completed Studies During Hospitalization Category Date Time Status CT abdomen pelvis wo con [id number] Urge nt Cat Scan 07/23/20 12:55 Completed DEVELOPMENT INTERN request for service Routin e Exams 07/23/20 13:44 Completed XR chest 1V wai ble [id number] Stat Exams 07/23/20 09:42 Completed XR chest 2V* [id number] Routine Exams 07/26/20 07:34 Completed CV echo complete* [id number] Routine Ultrasound 07/24/20 05:00 Completed CV echo lmt wo/w contras [id number] Rout ine Ultrasound 07/25/20 07:41 [place] [id number] Routin e Ultrasound 07/23/20 17:32 Completed US/CV paperwork R outine Ultrasound 07/25/20 10:17 Completed Vitals: Last Vital Signs Temp 97.4 F L 07/30/20 14:08 Pulse 63 07/30/20 14:08 Resp 18 07/30/20 14:08 BP 132/72 07/30/20 14:08 Pulse Ox 96 07/30/20 08:00 Discharge Plan Discharge Patient Disposition: Home Condition: Stable Prescriptions: New bumetanide 2 mg tablet 1 mg PO BID Qty: 60 RF: 0 metolazone 2.5 mg tablet 2.5 mg PO DAILY Qty: 30 RF: 0 lisinopril 5 mg tablet 5 mg PO DAILY Qty: 30 RF: 0 hydralazine 25 mg tablet 25 mg PO TID Qty: 90 RF: 0 Continued trazodone 150 mg tablet 150 mg PO BEDTIME PRN (Reason: Sleep) RF: 0 clopidogrel [Plavix] 75 mg tablet 75 mg PO DAILY@08 RF: 0 Invokana 300 mg tablet 300 mg PO DAILY@08 RF: 0 atorvastatin [Lipitor] 20 mg tablet 20 mg PO DAILY@08 RF: 0 esomeprazole magnesium 40 mg capsule,delayed release(DR/EC) 40 mg PO DAILY@08 RF: 0 buspirone 15 mg tablet 15 mg PO BID@, RF: 0 duloxetine 60 mg Capsule,Delayed Release(Dr/Ec) 60 mg PO DAILY@08 RF: 0 Januvia 100 mg tablet 100 mg PO DAILY@08 RF: 0 carvedilol 3.125 mg Tablet 3.125 mg PO Q12H Qty: 60 RF: 0 metformin 1,000 mg tablet 1,000 mg PO BID@, RF: 0 albuterol sulfate [ProAir HFA] 90 mcg/actuation HFA aerosol inhaler 2 puff inhalation Q6H PRN (Reason: Shortness Of Breath) RF: 0 pioglitazone 30 mg tablet 30 mg PO DAILY@08 RF: 0 ondansetron HCl [Zofran] 4 mg tablet 4 mg PO Q6H PRN (Reason: nausea and vomiting) Qty: 20 RF: 0 Carafate 1 gram Tablet 1 g PO BID@, RF: 0 hydroxyzine pamoate 25 mg Capsule 12.5 mg PO BID PRN (Reason: Anxiety) RF: 0 Anoro Ellipta 62.5-25 mcg/actuation Blister With Device 1 inh INHALATION BID@, RF: 0 pregabalin 200 mg capsule 100 mg PO TID@08,,20 RF: 0 Discontinued furosemide [Lasix] 80 mg tablet 160 mg PO DAILY@08 RF: 0 losartan 50 mg tablet 50 mg PO DAILY@08 RF: 0 lisinopril 2.5 mg tablet 2.5 mg PO DAILY@08 RF: 0 Discharge Orders: Discharge Order (Routine); Ordered 07/30/20 Ordered By: [place] Referrals: Brenden Chowdhury M.D [Physician] - 08/29/20 3:15 pm (You have a cardiology followup with Dr. Chowdhury at [facility] on August 29 at 3:15pm) Ally Capellan FNP [Nurse Practitioner] - 08/06/20 11:00 am (You have a post procedure followup with PAT Batres at [facility] on August 06 at 11:00am) Nazia Jha PA [Primary Care Provider] - 08/02/20 2:00 pm (You have a hospital followup at [facility] with AURE Luna on this coming August 02 at 2:00pm) Discharge Diet: Diabetic Discharge Activity: Increase activity as tolerated Patient Instructions: Lisinopril (By mouth), Metolazone (By mouth), Bumetanide (By mouth), Hydralazine (By mouth), Heart Failure (GEN), Coronary Artery Disease (DC), Left Heart Catheterization (DC), CHF Stoplight Discharge Attestations Time Spent in Discharge Care*: greater than 30 min Quality Metrics Clinical Quality Measures During this hospital stay, did patient experience: None Coding Level of Care Code Acute News Reporter for [facility] Fwd Diagnoses Acute HFrEF (heart failure with reduced ejection fraction) I50.21 Stress-induced cardiomyopathy I51.81 Diabetes E11.9 Hypertension I10 COPD (chronic obstructive pulmonary disease) J44.9 Low back pain M54.5 Smokeless tobacco use Z72.0 History of cerebrovascular accident Z86.73
== END 2020-07-30 14:50 | disposition home or self-care (01) | DRG 280 ==
LOC: ER 12:55 → CCL 13:28 → ICU 15:08 → CSU 07-24 16:41
PROVIDERS: Internal Medicine; Physician Assistant; Admitting Provider Internal Medicine; Emergency Provider Emergency Medicine; PCP Physician Assistant; Visit Provider Internal Medicine
PROC: B2151ZZ Fluoroscopy of Left Heart using Low Osmolar Contrast (ICD-10-PCS; principal; 2020-07-23 19:30)
DX: I21.4 Non-ST elevation (NSTEMI) myocardial infarction (principal); I50.33 Acute on chronic diastolic (congestive) heart failure; J44.9 Chronic obstructive pulmonary disease, unspecified; E11.9 Type 2 diabetes mellitus without complications; I11.0 Hypertensive heart disease with heart failure; E78.5 Hyperlipidemia, unspecified; K21.9 Gastro-esophageal reflux disease without esophagitis; Z99.81 Dependence on supplemental oxygen; I25.10 Atherosclerotic heart disease of native coronary artery without angina pectoris; G56.03 Carpal tunnel syndrome, bilateral upper limbs; G89.29 Other chronic pain; M54.5 Low back pain; Z86.73 Personal history of transient ischemic attack (TIA), and cerebral infarction without residual deficits; F41.8 Other specified anxiety disorders; F17.220 Nicotine dependence, chewing tobacco, uncomplicated; Z96.659 Presence of unspecified artificial knee joint; I24.8 Other forms of acute ischemic heart disease; Z96.82 Presence of neurostimulator; E03.9 Hypothyroidism, unspecified; E87.6 Hypokalemia; Z79.51 Long term (current) use of inhaled steroids; Z79.84 Long term (current) use of oral hypoglycemic drugs; Z79.02 Long term (current) use of antithrombotics/antiplatelets
CPT/HCPCS: 12345; 36415; 36416; 51702; 71045; 71046; 74176; 80048; 80053; 80061; 80069; 81003; 82962; 83735; 83880; 84145; 84443; 84484; 85007; 85025; 85049; 93005; 93306; 93452; 93970; 94640; 96372; 97110; 97161; 97166; 97530; 97535; 99282; C1769; C1887; C1894; C8924; J1250; J1644; J1815; J1940; J2250; J2270; J3010; J3475; J3480; J3490; J3535; Q9956; Q9967

== ENCOUNTER → 2020-08-06 11:56 | Outpatient (BNVA) | payer MEDICARE, MEDICAID, SELFPAY | PROVIDERS: PCP Physician Assistant; Visit Provider Nurse Practitioner Family | DX: I50.21 Acute systolic (congestive) heart failure (principal); Z09 Encounter for follow-up examination after completed treatment for conditions other than malignant neoplasm | CPT/HCPCS: 80048 ==

== ENCOUNTER 2020-08-22 18:23 | Inpatient (IN) | payer MEDICARE, MEDICAID, SELFPAY ==
[2020-08-22] VITALS (7 sets, daily range): BP systolic 105–118; BP diastolic 46–79; PULSE 56–69; RESP 14–18; TEMP 36.5–36.7; O2SAT 91–97; BMI 42.5
--- NOTE | 2020-08-22 19:59 | W.ED.GENADLT ---
HPI - General Adult General: Chief complaint: General Medical Stated complaint: Dr. Anguiano sent over BUN/Creatin too high Time Seen by Provider: 08/22/20 19:38 Source: patient Mode of arrival: ambulatory Limitations: no limitations History of Present Illness: HPI narrative: 75-year-old female who was sent here by her Dr. Anguiano due to routine blood draw showed an elevated creatinine and BUN. She states she has had generalized weakness. She does have body aches but she states is chronic in nature. She states she had some dark stools but denies any blood that she knows of. She states she has had decreased urination Associated symptoms: Deny chest pain, dyspnea, nausea, rash or vomiting Review of Systems Const: Denies: fever(s), chills, body aches or change in appetite Eyes: Denies: blurry vision or eye discomfort ENMT: Denies: throat pain or dental pain Card: Denies: chest pain Resp: Denies: dyspnea GI: Denies: abdominal pain, nausea, vomiting or diarrhea : Denies: dysuria Musc: Denies: neck pain or back pain Skin/Breast: Denies: rash Neuro: Reports: weakness in extremities Psych: Denies: depression Lavelle/Lymph: Denies: easy bruising All/Imm: Denies: urticaria PFSH ED PFSH: Medical History (Updated 08/22/20 @ 22:36 by Arcelia Quinn MD) Acute HFrEF (heart failure with reduced ejection fraction) Carpal tunnel syndrome on both sides Chronic radicular low back pain COPD (chronic obstructive pulmonary disease) COPD (chronic obstructive pulmonary disease) CVA (cerebral vascular accident) Depression with anxiety Diabetes Diabetes Encounter for long-term use of opiate analgesic GERD (gastroesophageal reflux disease) HFrEF (heart failure with reduced ejection fraction) History of cerebrovascular accident History of CHF (congestive heart failure) History of GI bleed Hypertension Hypertension Low back pain Non-ST elevation IA (NSTEMI) Opioid contract exists Smokeless tobacco use Stress-induced cardiomyopathy Surgical History H/O knee surgery History of knee replacement History of lumbar surgery Also history of spinal cord stimulator, currently not functioning History of shoulder surgery Family History Other CAD (coronary artery disease) Hypertension Stroke Denies family history of Anesthesia complication Bleeding disorder Social History (Updated 08/06/20 @ 11:20 by Yarely Patel RN) Smoking and tobacco status: current every day smoker smokeless tobacco Smokeless tobacco details: also smoked cigarrettes quit 10 years. 60 pack years Alcohol intake: never Physical Exam Const: COMMON NORMALS: no acute distress, patient oriented x3 and healthy appearing HENMT: COMMON NORMALS: normocephalic and atraumatic HEAD & SCALP: normocephalic and atraumatic Eye: COMMON NORMALS: Equal, round and reactive pupils present and EOMs intact bilaterally PUPIL: Yes Equal, round and reactive pupils present Neck/C-Spine: COMMON NORMALS: full ROM and supple Chest: COMMONS NORMALS: normal inspection of the chest and normal palpation of entire chest wall Resp: COMMON NORMALS: normal respiratory effort, No retractions, No use of accessory muscles and clear to auscultation bilaterally AUSCULTATION: clear to auscultation bilaterally Cardio: COMMON NORMALS: regular rate, regular rhythm and No murmurs present (Cardio) RATE: regular rate RHYTHM: regular rhythm GI: COMMON NORMALS: Normal to inspection, nondistended, normoactive bowel sounds present, Soft to palpation, non-tender and no masses PALPATION: Yes Soft to palpation RECTAL EXAM: stool normal, No heme positive stool and heme negative stool Extremity: COMMON NORMALS: normal to inspection and full ROM Neuro: COMMON NORMALS: patient oriented x3, moves all extremities and no focal motor deficits Psych: COMMON NORMALS: mental status grossly normal, Normal thought process present and cooperative THOUGHT PROCESS: Normal thought process present Skin: COMMON NORMALS: no rashes or lesions noted and no wounds GENERAL SKIN EXAM: no rashes or lesions noted Course Vital Signs: Vital signs: Vital Signs Temperature 98.0 F 08/22/20 19:23 Pulse Rate 69 08/22/20 21:54 Respiratory Rate 15 08/22/20 21:54 Blood Pressure 112/46 08/22/20 22:15 Pulse Oximetry 91 08/22/20 21:54 MDM - General Adult MDM Narrative: Medical decision making narrative: Lauren presents here with acute kidney injury with an elevated creatinine and BUN. She has had no vomiting and is still making urine. She has no signs of urinary tract infection. I spoke to hospitalist will admit for hydration. Patient potassium level here is normal. Lab Data: Labs: Lab Results 08/22/20 08/22/20 08/22/20 Range/Units 20:20 20:28 20:28 WBC 6.8 (4.0-10.0) 10^3/ uL RBC 4.38 (4.1-5.3) 10^6/u L Hgb 11.7 (11.5-15.3) g/dL Hct 37.3 (37.0-47.0) % MCV 85.2 (81-99) fL MCH 26.7 L (28.0-34.0) pg MCHC 31.4 (30.0-36.0) g/dL RDW 18.2 H (12.1-15.1) % Plt Count 198 (130-400) 10^3/c mm MPV 10.3 (7.4-10.4) fL Neut % (Auto) 59.0 % Lymph % (Auto) 32.2 % [place] % (Auto) 6.0 % Eos % (Auto) 1.8 % Baso % (Auto) 0.7 % Neut # (Auto) 4.02 (1.8-7.7) 10^3/u L Lymph # (Auto) 2.2 (0.8-4.8) 10^3/u L [place] # (Auto) 0.4 (0.2-0.9) 10^3/u L Eos # (Auto) 0.1 (0.0-0.8) 10^3/u L Baso # (Auto) 0.1 (0.0-0.1) 10^3/u L Nucleated RBC % (a uto) 0 % Nucleated RBCs # 0.0 /100WBC Sodium 133 L (136-145) mmol/L Potassium 4.8 (3.5-5.1) mmol/L Chloride 96 L (98-107) mmol/L Carbon Dioxide 24 (22-29) mmol/L Anion Gap 17.8 (5-19) BUN 106 H* (8-23) mg/dL Creatinine 2.7 H (0.5-0.9) mg/dL GFR Calculation Not Reportable Glucose 101 (65-115) mg/dL Calculated Osmolal ity 309 H (285-295) mOsm/k g Calcium 9.2 (8.5-10.5) mg/dL Total Bilirubin 0.6 (0.15-1.2) mg/dL AST 9 (0-32) U/L ALT 9 (0-33) U/L Alkaline Phosphata se 59 (35-105) IU/L Total Protein 7.0 (6.6-8.7) g/dL Albumin 4.0 (3.5-5.2) g/dL Globulin 3.0 (1.3-4.6) g/dL Urine Color Yellow (Yellow) Urine Appearance Clear (CLEAR) Urine pH 5.0 (5-7) Ur Specific Gravit y 1.015 (1.005-1.030) Urine Protein Neg (Negative) Urine Glucose (UA) Norm (Normal) Urine Ketones Negative (Negative) Urine Blood Neg (Negative) Urine Nitrate Negative (Negative) Urine Bilirubin Neg (Negative) Urine Urobilinogen Norm (Negative) mg/dL Ur Leukocyte Pamela ase Negative (Negative) EKG Data^: EKG 1: Attestation: I personally reviewed and interpreted this EKG as follows: EKG interpretation date: 08/22/20 EKG interpretation time: 20:37 Interpretation: sinus oscar hr [address] or t wave abnormalities qrs 138 qtc 449 Discharge Plan Discharge Patient Disposition: Admitted As Inpatient Clinical Impression: Acute kidney injury Condition: Stable Coding Level of Care Code ED Sap 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
--- NOTE | 2020-08-22 20:05 | ECG_ITS ---
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 Shift: : 1945 Requested By: Arcelia Quinn Order Number: [id number] Olga MD: JAY SINHA Measurements Intervals [place] Rate: 54 P: 25 IL: 232 QRS: -9 QRSD: 138 T: 146 QT: 462 QTc: 441 Interpretive Statements SINUS BRADYCARDIA WITH FIRST DEGREE AV BLOCK INTRAVENTRICULAR CONDUCTION DELAY [130+ ms QRS DURATION] Compared to ECG 07/24/2020 09:50:35 First degree AV block now present Intraventricular conduction delay now present Sinus rhythm no longer present Sinus arrhythmia no longer present Left-axis deviation no longer present Myocardial infarct finding no longer present ST (T wave) deviation no longer present Electronically Signed On 08-23-2020 18:01:57 VERIFY REP by JAY SINHA [email or web address]
[2020-08-22] MEDS: sodium chloride 0.9% 1,000 ML 999 ML IV (20:34)
[2020-08-22 20:39] LABS: Basophils # 0.1 10^3/uL (0.0-0.1); Basophils % 0.7 %; Eosinophils # 0.1 10^3/uL (0.0-0.8); Eosinophils % 1.8 %; Hematocrit 37.3 % (37.0-47.0); Hemoglobin 11.7 g/dL (11.5-15.3); Lymphocytes # 2.2 10^3/uL (0.8-4.8); Lymphocytes % 32.2 %; Mean Corpuscular HGB Conc 31.4 g/dL (30.0-36.0); Mean Corpuscular Hemoglobin 26.7 pg (28.0-34.0); Mean Corpuscular Volume 85.2 fL (81-99); Mean Platelet Volume 10.3 fL (7.4-10.4); Monocytes # 0.4 10^3/uL (0.2-0.9); Neutrophils # 4.02 10^3/uL (1.8-7.7); Nucleated Red Blood Cells % 0 %; Platelet Count 198 10^3/cmm (130-400); Red Blood Count 4.38 10^6/uL (4.1-5.3); Red Cell Distribution Width 18.2 % (12.1-15.1); White Blood Count 6.8 10^3/uL (4.0-10.0)
[2020-08-22 20:58] LABS: Add Urine Microscopic? NO
[2020-08-22 21:25] LABS: Alanine Aminotransferase 9 U/L (0-33); Alkaline Phosphatase 59 IU/L (35-105); Anion Gap 17.8 (5-19); Aspartate Amino Transferase 9 U/L (0-32); Calcium 9.2 mg/dL (8.5-10.5); Carbon Dioxide 24 mmol/L (22-29); Chloride 96 mmol/L (98-107); Glucose 101 mg/dL (65-115); Osmolality Calculated 309 mOsm/kg (285-295); Potassium 4.8 mmol/L (3.5-5.1); Sodium 133 mmol/L (136-145); Total Bilirubin 0.6 mg/dL (0.15-1.2)
[2020-08-22 21:29] LABS: Bilirubin Urine Neg (Negative); Blood Urine Neg (Negative); Glucose Urine UA Norm (Normal); Ketones Urine Negative (Negative); Leukocyte Esterase Urine Negative (Negative); Nitrate Urine Negative (Negative); Protein Urine Neg (Negative); Specific Gravity, Urine 1.015 (1.005-1.030); Urine Appearance Clear (CLEAR); Urine Color Yellow (Yellow); Urobilinogen Urine Norm (Negative)
--- NOTE | 2020-08-22 21:33 | PC.NURSE ---
Assisted patient in turning onto her right side, daughter and nurse assisted as well.
[2020-08-22 21:36] LABS: Blood Urea Nitrogen 106 mg/dL (8-23)
--- NOTE | 2020-08-22 22:13 | CTR_ITS ---
PROCEDURE INFORMATION: Exam: CT Abdomen And Pelvis Without Contrast Exam date and time: 08/22/2020 10:14 PM Age: 75 years old Clinical indication: Pain; Patient HX: Elevated bun and creatinine. C/O dysuria. ; Additional info: Abd pain TECHNIQUE: Imaging protocol: Computed tomography of the abdomen and pelvis without contrast. Radiation optimization: All CT scans at this facility use at least one of these dose optimization techniques: automated exposure control; mA and/or kV adjustment per patient size (includes targeted exams where dose is matched to clinical indication); or iterative reconstruction. COMPARISON: CT abdomen pelvis wo con [id number] 07/23/2020 12:59 PM RADIATION DOSE METRICS: Total DLP (mGy-cm): 1443.13 FINDINGS: Limitations: The absence of intravenous contrast lessens the sensitivity of this study for solid organ abnormalities. Study somewhat limited due to streak artifact created by the patient being scanned with the arms at the sides. Tubes, catheters and devices: Neurostimulator device is seen in the upper thoracic region. Lungs: There is minimal dependent atelectasis at the left lung base. Liver: There is no focal abnormality within the liver. Gallbladder and bile ducts: There has been a cholecystectomy. Pancreas: The pancreas is normal. Spleen: The spleen is normal. Adrenal glands: The adrenal glands are normal. Kidneys and ureters: There is a 2.3 cm sized slightly hyperdense cyst in the mid right kidney not significantly changed from 07/23/2020 or 04/26/2019. The right kidney is normal. There is no evidence of hydronephrosis. There is no evidence of renal or ureteral calcifications. Stomach and bowel: There is no evidence of intestinal obstruction. There is no evidence of colitis/diverticulitis. There is mild thickening of the fundus and proximal body of the stomach. Please correlate for clinical symptoms of gastritis. Appendix: A normal appendix is identified. Intraperitoneal space: There is no evidence of free intraperitoneal fluid. There is no free intraperitoneal air. Vasculature: The aorta demonstrates mild atherosclerotic calcification. There is no evidence of an abdominal aortic aneurysm. Lymph nodes: Unremarkable. No enlarged lymph nodes. Urinary bladder: Urinary bladder is drained by Dumont catheter. Reproductive: Unremarkable as visualized. Bones/joints: Postsurgical changes in the lower lumbar spine are stable. The lumbar spine demonstrates moderate degenerative changes at multiple levels. Soft tissues: There is a small umbilical hernia containing fat CT/CT abdomen pelvis wo con [id number] IMPRESSION: Question of mild gastritis COMMENTS: Consistent with the [employer]'s Incidental Findings Committee white paper (J Am Venita Radiol 2018): Any incidental renal lesion less than 1 cm or classified as too small to characterize, or any incidental cystic renal lesion characterized as simple-appearing, is likely benign. No follow-up imaging is recommended for these lesions per consensus recommendations based on imaging criteria. Radiation Dose CTDIVOL = (mGy): DLP = 1443.13 (mGy-cm)
--- NOTE | 2020-08-22 22:13 | PM.HP ---
Providers/Chief Complaint Primary Care Provider: Nazia Jha Chief Complaint: Dr. Anguiano sent over BUN/Creatin too high History of Present Illness Lauren Jose is a 75 year old female who has multiple comorbid conditions presented today after abnormal lab work. Patient was seen at [facility] cardiac care clinic, her BMP revealed RO for which she was referred to the ER for further evaluation. Patient is stating that at baseline she drinks 2 water bottles which are roughly 700 cc in total. For last few months she has been experiencing diarrhea, every time she eats she would experience loose stools, with this diarrhea she has been taking Bumex, metolazone, pioglitazone and lisinopril. She has not experienced any fever, nausea, vomiting , chest pain, shortness of breath, orthopnea, PND dysuria. She is endorsing that her urine output has decreased. Her diet constitutes mostly salads and cardiac diet. Diagnosis in the ER revealed RO, clinically she looks dehydrated, she was given 1 L normal saline which improved her creatinine and BUN as well, she does not have typical uremic symptoms, decision was made to admit her hydrate her and stop nephrotoxic agents. Review of Systems Const: Reports: change in appetite, change in weight, fatigue and malaise; Denies: fever(s), chills or body aches Eyes: Denies: change in vision ENMT: Denies: throat pain Card: Denies: chest pain, swelling of feet/ankles, dyspnea on exertion or orthopnea Resp: Denies: dyspnea GI: Reports: diarrhea; Denies: abdominal pain : Denies: flank pain Musc: Denies: neck pain Skin/Breast: Denies: rash Neuro: Denies: headache(s) Psych: Denies: anxiety Endo: Denies: polyuria [place]/Lymph: Denies: easy bruising All/Imm: Denies: urticaria Medications/Allergies Home Medications Medication Instructions Recorded Confirmed Last Taken Type atorvastatin 20 mg tablet 20 mg PO DAILY@09/30/19 08/22/20 08/22/20 History clopidogrel 75 mg tablet 75 mg PO DAILY@09/30/19 08/22/20 08/22/20 History trazodone 150 mg tablet 150 mg PO BEDTIME@1999 PRN tab 09/30/19 08/22/20 08/21/20 History Januvia 100 mg PO DAILY@08 03/19/20 08/22/20 08/22/20 History buspirone 15 mg PO BID@03/19/20 08/22/20 08/22/20 History duloxetine 60 mg PO DAILY@03/19/20 08/22/20 08/22/20 History esomeprazole magnesium 40 mg PO DAILY@08 03/19/20 08/22/20 08/22/20 History carvedilol 3.125 mg PO Q12H #60 tab 03/22/20 08/22/20 08/22/20 Rx albuterol sulfate [ProAir HFA] 2 puff INHALATION Q6H PRN 06/11/20 08/22/20 08/21/20 History metformin 1,000 mg PO BID@06/11/20 08/22/20 08/22/20 History ondansetron HCl [Zofran] 4 mg PO Q6H PRN #20 tab 06/11/20 08/22/20 Unknown Rx pioglitazone 30 mg PO DAILY@06/11/20 08/22/20 08/22/20 History Anoro Ellipta 1 inh INHALATION BID@07/23/20 08/22/20 08/21/20 History hydroxyzine pamoate 12.5 mg PO BID PRN 07/23/20 08/22/20 08/22/20 History pregabalin 100 mg PO TID@07/23/20 08/22/20 08/22/20 History sucralfate [Carafate] 1 g PO BID@07/23/20 08/22/20 08/22/20 History acetaminophen [Tylenol] 325 - 650 mg PO Q6H PRN 08/22/20 08/22/20 08/22/20 History bumetanide 0.5 mg PO BID@799,199908/22/20 08/22/20 08/22/20 History empagliflozin [Jardiance] 25 mg PO DAILY@79908/22/20 08/22/20 08/22/20 History hydralazine 25 mg PO TID@,08/22/20 08/22/20 08/22/20 History lisinopril 5 mg PO DAILY@08 08/22/20 08/22/20 08/22/20 History metolazone 2.5 mg PO DAILY@08 08/22/20 08/22/20 08/22/20 History Allergies Allergy/AdvReac Type Severity Reaction Status Date / Time No Known Allergies Allergy Verified 06/11/20 16:16 PFSH Acute PFSH: Medical History Acute HFrEF (heart failure with reduced ejection fraction) Carpal tunnel syndrome on both sides Chronic radicular low back pain COPD (chronic obstructive pulmonary disease) COPD (chronic obstructive pulmonary disease) CVA (cerebral vascular accident) Depression with anxiety Diabetes Diabetes Encounter for long-term use of opiate analgesic GERD (gastroesophageal reflux disease) HFrEF (heart failure with reduced ejection fraction) History of cerebrovascular accident History of CHF (congestive heart failure) History of GI bleed Hypertension Hypertension Low back pain Non-ST elevation OR (NSTEMI) Opioid contract exists Smokeless tobacco use Stress-induced cardiomyopathy Surgical History H/O knee surgery History of knee replacement History of lumbar surgery Also history of spinal cord stimulator, currently not functioning History of shoulder surgery Family History Other CAD (coronary artery disease) Hypertension Stroke Denies family history of Anesthesia complication Bleeding disorder Social History Smoking and tobacco status: current every day smoker smokeless tobacco Smokeless tobacco details: also smoked cigarrettes quit 10 years. 60 pack years Alcohol intake: never Vitals/I&O/Wt Last Vital Signs Temp 98.0 F 08/22/20 19:23 Pulse 69 08/22/20 21:54 Resp 15 08/22/20 21:54 BP 112/52 08/22/20 21:54 Pulse Ox 91 08/22/20 21:54 Weight last 48 hrs Weight 98.883 kg Physical Exam Narrative: EXAM NARRATIVE: Elderly female currently laying comfortably in supine position in her bed saturating well on 2 L nasal cannula Patient is noncomplaining of active chest pain orthopnea PND Clinically he looks dehydrated dry mucous membranes noted, dry skin No active sign of fluid overload S1, S2 no signs of heart failure or arrhythmia Abdomen soft nontender bowel sound present central obesity Low symmetry no edema gangrene ulcer Neurologically nonfocal exam No uremic signs, did not appreciate pericardial rub Appropriate mood and affect No skin findings of ulcer or gangrene No joint swelling She has residual left-sided weakness with right-sided facial droop Urinary Catheter Management^: Dumont: Cath Placed During This Visit: yes Urinary Catheter Date of Insertion: 08/22/20 Urinary Catheter Time of Insertion: 20:20 Data : 08/22/20 23:50 08/22/20 23:50 A&P Assessment and plan (1) Acute kidney injury: Status: Acute (2) Dehydration: Status: Acute Additional A&P Information Acute kidney injury CT abdomen pelvis did not reveal hydronephrosis, no signs of obstruction, patient has been using nephrotoxic agent such as pioglitazone, lisinopril, diuretics, is also endorsing history of diarrhea I do believe her RO secondary to dehydration, recently patient was discharged on metolazone 2.5 mg along with 1 mg twice daily Bumex regimen Hemodynamically she is stable, BNP less than 400 After 1 L normal saline bolus her creatinine and BUN improved I would continue normal saline for next 10-11 hours and discontinue around 11 AM because of her reduced action fraction heart failure would not continue fluid resuscitation for prolonged period of time Discontinue nephrotoxic agents Monitor urine output, in few hours after getting normal saline bolus her urine output increased to 700 cc, it was dilute, would request urine creatinine ratio Reduce trazodone dose Normocytic anemia hemoglobin 10.6 no active GI bleed, she is hemodynamically stable Type 2 diabetes I would hold pioglitazone and Metformin, I would recommend against pioglitazone considering CHF and RO even on discharge Continue insulin sliding scale for now Hypertension: Continue hydralazine hold lisinopril Full code Cardiac diet DVT prophylaxis Heparin Attestations Medical Necessity Statement*: Anticipating stay in the hospital cross more than 2 midnights to closely monitor her acute kidney injury, because of excessive diuresis she is at risk of developing ATN, currently she is responding well to fluid resuscitation Time Spent in Patient Care: (>than 50% of time spent in counselling and/or direct pt care on unit). 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
--- NOTE | 2020-08-22 22:25 | PC.NURSE ---
patient to CT
--- NOTE | 2020-08-22 22:38 | PC.NURSE ---
patient repositioned for comfort
[2020-08-22 23:21] LABS: NT Pro B Type Natriuretic Pept 231 pg/mL (0-125)
[2020-08-22] MEDS: heparin 5,000 unit/mL INJ 1 mL 5000 UNIT SUBCUT (23:57)
[2020-08-22 23:58] LABS: Basophils # 0.1 10^3/uL (0.0-0.1); Basophils % 0.8 %; Eosinophils # 0.2 10^3/uL (0.0-0.8); Eosinophils % 2.1 %; Hematocrit 34.6 % (37.0-47.0); Hemoglobin 10.6 g/dL (11.5-15.3); Lymphocytes # 2.8 10^3/uL (0.8-4.8); Lymphocytes % 38.3 %; Mean Corpuscular HGB Conc 30.6 g/dL (30.0-36.0); Mean Corpuscular Hemoglobin 26.6 pg (28.0-34.0); Mean Corpuscular Volume 86.9 fL (81-99); Mean Platelet Volume 10.3 fL (7.4-10.4); Monocytes # 0.5 10^3/uL (0.2-0.9); Monocytes % 6.5 %; Neutrophils # 3.74 10^3/uL (1.8-7.7); Nucleated Red Blood Cells % 0 %; Platelet Count 176 10^3/cmm (130-400); Red Blood Count 3.98 10^6/uL (4.1-5.3); Red Cell Distribution Width 18.2 % (12.1-15.1); White Blood Count 7.2 10^3/uL (4.0-10.0)
[2020-08-23] VITALS (12 sets, daily range): BP systolic 111–124; BP diastolic 60–74; PULSE 53–79; RESP 15–19; TEMP 36.3–36.8; O2SAT 95–99
[2020-08-23 00:33] LABS: Anion Gap 16.4 (5-19); Calcium 8.7 mg/dL (8.5-10.5); Carbon Dioxide 23 mmol/L (22-29); Chloride 100 mmol/L (98-107); Glucose 91 mg/dL (65-115); Osmolality Calculated 312 mOsm/kg (285-295); Potassium 4.4 mmol/L (3.5-5.1); Sodium 135 mmol/L (136-145)
[2020-08-23 00:41] LABS: Blood Urea Nitrogen 104 mg/dL (8-23)
[2020-08-23 01:10] LABS: Creatinine Urine, Random 41 mg/dL (28-217); Microalbum Creatinine Ratio Ur 24 mg/dL (0-20); Microalbumin Random Urine 1 ug/dL (0-20); Urine Creatinine 41 mg/dL (28-217); Urine Random Sodium 49 mmol/L
[2020-08-23] MEDS: sodium chloride 0.9% 1,000 ML 30 ML IV (01:23)
--- NOTE | 2020-08-23 06:15 | NUR.SHIFT ---
Patient mainly slept. Patient had an unremarkable night.
[2020-08-23 06:20] LABS: Anion Gap 17.1 (5-19); Carbon Dioxide 24 mmol/L (22-29); Chloride 101 mmol/L (98-107); Glucose 86 mg/dL (65-115); Osmolality Calculated 314 mOsm/kg (285-295); Potassium 4.1 mmol/L (3.5-5.1); Sodium 138 mmol/L (136-145)
[2020-08-23 06:24] LABS: Blood Urea Nitrogen 94 mg/dL (8-23)
[2020-08-23 06:40] LABS: Glucose Point of Care 97 mg/dL (70-110)
[2020-08-23] MEDS: duloxetine 60 mg Capsule PO (08:00)
[2020-08-23] MEDS: atorvastatin 40 mg Tablet 20 MG PO (08:00)
[2020-08-23] MEDS: pantoprazole DR 40 mg Tablet PO (08:00)
[2020-08-23] MEDS: clopidogrel 75 mg Tablet PO (08:00)
[2020-08-23] MEDS: heparin 5,000 unit/mL INJ 1 mL 5000 UNIT SUBCUT ×2 (08:01→15:46)
[2020-08-23] MEDS: acetaminophen 325 mg Tablet PO (08:09)
[2020-08-23 10:02] LABS: Ferritin 97 ng/mL (15-150); Iron 91 ug/dL (37-145); Percent Saturation 28.1 % (20-50); Total Iron Binding Capacity 323 mcg/dl; Transferrin 281 mg/dL (200-360); Unsaturated Iron Binding 232 ug/dL (112-347)
[2020-08-23 10:19] LABS: Vitamin B12 350 pg/mL (232-1245)
--- NOTE | 2020-08-23 10:22 | PC.CHAP ---
Pastoral Care Encounter/Spiritual Assessment Type of Contact [] Declined kennel keeper visit [] Patient/Family/Request visit [] Outpatient visit [] Follow-up visit [] Physician referral [] Code/Alert [x] Routine visit [] Staff referral [] Actively dying [] Patient sleeping [] Family support [] [] Out of room [] Palliative care [] [x] Receiving care in room [] Pre-surgical visit [] Trauma [] Long length of stay [] ICU visit [] Other: Relational/Emotional Strength [] Patient feels connected with others/family/visitors/staff [x] Distress [] Loneliness/isolation [] Abandonment Spirituality of Patient [x] Person of Maria E [] Attends Voodoo of their Maria E [x] Believes in Prayer [] Reads Bible or Baptist materials [] There are Spiritual issues to be addressed Manager Support Services Interventions [x] Prayer [x] Active listening [x] Non-anxious presence [x] Spiritual/emotional support [] Crisis/trauma care [x] Spiritual counseling [] Bereavement support [] Provided bereavement packet [] Provided Bible/devotional materials [] Provided toy/stuffed animal, coloring book to patient or family member [] Provided Communion [] Anointing/[place] [] Salvation [x] Completed spiritual assessment [] Other: Impact on Illness or Injury [] Angry [x] Fearful [] Anxious [] Often cries [] Exhaustion [] Unable to work [] Unable to attend yazdanism [] Unable to walk/stand [] Unable to read [] Unable to drive [] Unable to eat/drink [] Unable to sleep [] Unable to be with family [] Patient intubated [] Other: Summary Doesn't know about her health has negative response and attitude, Time spent with patient 10 mins
[2020-08-23 10:32] LABS: Folate Level 9.8 ng/mL (4.8-37.3)
[2020-08-23 11:31] LABS: Glucose Point of Care 112 mg/dL (70-110)
--- NOTE | 2020-08-23 11:44 | PM.PN ---
Subjective Subjective: Interval history: Patient is doing okay. Sleeping peacefully. No acute concerns. No acute distress. No nausea or vomiting. No shortness of breath or cough. Medications: Reviewed: Yes Medication Review Details: Generic Name Dose Route Start Last Admin Trade Name Frebreanna PRN Reason Stop Dose Admin Acetaminophen 325 mg 08/22/20 23:33 08/23/20 08:09 Acetaminophen 32 5 Mg Tablet PO 325 mg Q6H PRN Administration Pain Atorvastatin Calci um 20 mg 08/23/20 08:00 08/23/20 08:00 Atorvastatin 40 Mg Tablet PO 20 mg DAILY@08 [facility] Administration Carvedilol 3.125 mg 08/22/20 23:33 08/23/20 10:54 Carvedilol 3.125 Mg Tablet PO Not Given Q12H [facility] Clopidogrel Bisulf ate 75 mg 08/23/20 08:00 08/23/20 08:00 Clopidogrel 75 M g Tablet PO 75 mg DAILY@08 [facility] Administration Duloxetine HCl 60 mg 08/23/20 08:00 08/23/20 08:00 Duloxetine 60 Mg Capsule PO 60 mg DAILY@08 [facility] Administration Heparin Sodium (Be ef Lung) 5,000 unit 08/22/20 23:33 08/23/20 08:01 Heparin 5,000 Un it/Ml Inj 1 Ml SUBCUT 5,000 unit Q8H [facility] Administration Hydralazine HCl 25 mg 08/23/20 08:00 08/23/20 08:01 Hydralazine 25 M g Tablet PO Not Given TID@08,,20 [facility] Insulin Aspart 0 unit 08/23/20 08:00 08/23/20 11:36 Insulin Aspart 1 00 Unit/1 Ml SUBCUT Not Given WM&BEDTIME [facility] Protocol Pantoprazole Sodiu m 40 mg 08/23/20 08:00 08/23/20 08:[address] 40 Mg Tablet PO 40 mg DAILY@08 [facility] Administration Vitals/I&O/Wt Last Vital Signs Temp 98.3 F 08/23/20 11:38 Pulse 55 L 08/23/20 11:38 Resp 18 08/23/20 11:38 BP 111/62 08/23/20 11:38 Pulse Ox 95 08/23/20 11:38 08/22/20 08/23/20 08/23/20 22:59 06:59 14:59 Intake Total 1000 / 1000 480 / 480 Output Total 1300 / 1300 Balance 1000 / 1000 -1300 / -300 480 / 480 Weight last 48 hrs Weight 98.883 kg Physical Exam Narrative: EXAM NARRATIVE: Eyes Harpal, Skin is warm and dry. Moist mucous membranes Neck supple no JVD Lungs no respiratory distress. Clear. No wheeze or crackles Heart S1, S2, regular Abdomen obese, soft, nontender, bowel sounds are present Extremities no calf tenderness or cyanosis bilaterally. Urinary Catheter Management^: Dumont: Cath Placed During This Visit: yes Reason for Continuing Indwelling Catheter: Acute Urinary Retention or Obstruction Urinary Catheter Date of Insertion: 08/22/20 Urinary Catheter Time of Insertion: 20:20 Data : 08/22/20 23:50 08/23/20 04:44 A&P Assessment and plan (1) Acute kidney injury: Status: Acute (2) Dehydration: Status: Acute Additional A&P Information Acute kidney injury CT abdomen pelvis did not reveal hydronephrosis, no signs of obstruction, patient has been using nephrotoxic agent such as pioglitazone, lisinopril, diuretics, is also endorsing history of diarrhea I do believe her OR secondary to dehydration, recently patient was discharged on metolazone 2.5 mg along with 1 mg twice daily Bumex regimen Hemodynamically she is stable, BNP less than 400 After 1 L normal saline bolus her creatinine and BUN improved I would continue normal saline for next 10-11 hours and discontinue around 11 AM because of her reduced action fraction heart failure would not continue fluid resuscitation for prolonged period of time Discontinue nephrotoxic agents Monitor urine output, in few hours after getting normal saline bolus her urine output increased to 700 cc, it was dilute, would request urine creatinine ratio Reduce trazodone dose Normocytic anemia hemoglobin 10.6 no active GI bleed, she is hemodynamically stable Type 2 diabetes I would hold pioglitazone and Metformin, I would recommend against pioglitazone considering CHF and RO even on discharge Continue insulin sliding scale for now Hypertension: Continue hydralazine hold lisinopril Full code Cardiac diet DVT prophylaxis Heparin [place] Acute kidney injury. Improving. Continue current management. Oral hydration. We will recheck her chemistry panel tomorrow. Holding nephrotoxic medications. Dehydration. Resolved. Anemia. Monitor. Will do anemia work-up. Diabetes, hypertension, COPD, CHF. Currently stable. Continue current management. DVT prophylaxis. Heparin. Attestations Medical Necessity Statement*: We need another day to monitor her kidney function. Hopefully it will improve more tomorrow and will be able to discharge her. 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
[2020-08-23] MEDS: ipratropium-albuterol 3 mL Neb INHALATION ×2 (11:52→15:01)
[2020-08-23 21:22] LABS: Glucose Point of Care 132 mg/dL (70-110)
[2020-08-23] MEDS: hyDRALAzine 25 mg Tablet PO (21:43)
[2020-08-24] VITALS: BP 128/66; PULSE 55; RESP 18; TEMP 37.1; O2SAT 97
[2020-08-24] MEDS: heparin 5,000 unit/mL INJ 1 mL 5000 UNIT SUBCUT ×2 (02:00→06:38)
[2020-08-24 04:00] VITALS: BP 129/72; PULSE 63; RESP 18; TEMP 36.9; O2SAT 94
[2020-08-24 05:31] LABS: Basophils % 0.6 %; Eosinophils # 0.1 10^3/uL (0.0-0.8); Eosinophils % 2.1 %; Hematocrit 36.5 % (37.0-47.0); Hemoglobin 11.2 g/dL (11.5-15.3); Lymphocytes # 1.8 10^3/uL (0.8-4.8); Lymphocytes % 27.9 %; Mean Corpuscular HGB Conc 30.7 g/dL (30.0-36.0); Mean Corpuscular Hemoglobin 26.5 pg (28.0-34.0); Mean Corpuscular Volume 86.5 fL (81-99); Mean Platelet Volume 10.4 fL (7.4-10.4); Monocytes # 0.5 10^3/uL (0.2-0.9); Monocytes % 7.8 %; Neutrophils # 3.86 10^3/uL (1.8-7.7); Neutrophils % 61.3 %; Nucleated Red Blood Cells % 0 %; Platelet Count 179 10^3/cmm (130-400); Red Blood Count 4.22 10^6/uL (4.1-5.3); Red Cell Distribution Width 18.1 % (12.1-15.1); White Blood Count 6.3 10^3/uL (4.0-10.0)
[2020-08-24 05:53] LABS: Magnesium 1.6 mg/dL (1.7-2.3)
[2020-08-24 06:08] LABS: Albumin Level 4.1 g/dL (3.5-5.2); Anion Gap 13.6 (5-19); Blood Urea Nitrogen 59 mg/dL (8-23); Calcium 9.5 mg/dL (8.5-10.5); Carbon Dioxide 29 mmol/L (22-29); Chloride 103 mmol/L (98-107); Glucose 126 mg/dL (65-115); Phosphorus 2.8 mg/dL (2.5-4.5); Potassium 4.6 mmol/L (3.5-5.1); Sodium 141 mmol/L (136-145)
[2020-08-24 06:41] LABS: Glucose Point of Care 122 mg/dL (70-110)
[2020-08-24 07:11] VITALS: BP 138/81; PULSE 64; RESP 17; TEMP 36.8; O2SAT 93
[2020-08-24] MEDS: duloxetine 60 mg Capsule PO (08:13)
[2020-08-24] MEDS: atorvastatin 40 mg Tablet 20 MG PO (08:13)
[2020-08-24] MEDS: hyDRALAzine 25 mg Tablet PO (08:13)
[2020-08-24] MEDS: clopidogrel 75 mg Tablet PO (08:13)
[2020-08-24] MEDS: pantoprazole DR 40 mg Tablet PO (08:13)
[2020-08-24] MEDS: carvedilol 3.125 mg Tablet PO (08:13)
[2020-08-24] MEDS: ipratropium-albuterol 3 mL Neb INHALATION (08:36)
[2020-08-24 08:37] VITALS: PULSE 61; RESP 18; O2SAT 95
[2020-08-24 08:41] VITALS: PULSE 65
--- NOTE | 2020-08-24 09:33 | PM.DCS ---
Discharge Providers Date of Admission: 08/22/20 22:07 Date of Discharge: August 24, 2020 Attending Provider at Admission: Stacey Fowler MD Attending Provider at Discharge: Ignacio Dowell Primary Care Provider: Nazia Jha Diagnoses at Discharge Discharge Diagnosis (1) Acute kidney injury: Status: Acute (2) Dehydration: Status: Acute Reason for Visit Reason for Visit: Dr. Anguiano sent over BUN/Creatin too high Hospital Course Hospital Course Discharge diagnoses and problem list Acute kidney injury. Resolved. Probably was due to dehydration. Received IV fluids. No evidence of CHF exacerbation. Her diuretics and lisinopril are still on hold. I instructed her to follow-up with her primary care physician and discuss about adjusting her medications depending on repeat chemistry panel results with close monitoring of the renal function and electrolytes. Currently she is feeling well and is eager to go home. Denies any active complaints. Denies any weakness. No chest pain, shortness of breath, cough, palpitations. No nausea or vomiting. No diarrhea. Dehydration. Resolved. Anemia. It is improved. I did a work-up. No iron deficiency. However her fecal occult blood is positive. She reports brown stool without blood. Discussed with Dr. Zapien. Considering overall situation with COVID-19, patient stable condition and the fact that there is no evidence of active significant bleeding he recommends outpatient screening colonoscopy and EGD. I will give her a referral to see specialist for endoscopy. No evidence of active bleeding. Diabetes, hypertension, COPD, CHF. Currently stable. Continue current management. Physical Exam Urinary Catheter Management^: Dumont: Cath Placed During This Visit: yes Reason for Continuing Indwelling Catheter: Assist Healing of Perineal & Sacral Wounds- Incontinent Patients Urinary Catheter Date of Insertion: 08/22/20 Urinary Catheter Time of Insertion: 20:20 Discharge Data Data Completed and Pending: Completed Studies During Hospitalization Category Date Time Status CT abdomen pelvis wo con [id number] Urge nt Cat Scan 08/22/20 22:13 Completed Labs from last 24 hours 08/24/20 08/24/20 08/24/20 06:29 04:56 04:56 WBC RBC Hgb Hct MCV MCH MCHC RDW Plt Count MPV Neut % (Auto) Lymph % (Auto) [place] % (Auto) Eos % (Auto) Baso % (Auto) Neut # (Auto) Lymph # (Auto) [place] # (Auto) Eos # (Auto) Baso # (Auto) Nucleated RBC % (a uto) Nucleated RBCs # Sodium 141 Potassium 4.6 Chloride 103 Carbon Dioxide 29 Anion Gap 13.6 BUN 59 H Creatinine 0.7 GFR Calculation Not Reportable Glucose 126 H POC Glucose 122 H Calcium 9.5 Phosphorus 2.8 Magnesium 1.6 L Iron TIBC % Saturation Unsat Iron Binding Transferrin Ferritin Albumin 4.1 Vitamin B12 Folate 08/24/20 08/23/20 08/23/20 04:56 21:01 11:19 WBC 6.3 RBC 4.22 Hgb 11.2 L Hct 36.5 L MCV 86.5 MCH 26.5 L MCHC 30.7 RDW 18.1 H Plt Count 179 MPV 10.4 Neut % (Auto) 61.3 Lymph % (Auto) 27.9 [place] % (Auto) 7.8 Eos % (Auto) 2.1 Baso % (Auto) 0.6 Neut # (Auto) 3.86 Lymph # (Auto) 1.8 [place] # (Auto) 0.5 Eos # (Auto) 0.1 Baso # (Auto) 0.0 Nucleated RBC % (a uto) 0 Nucleated RBCs # 0.0 Sodium Potassium Chloride Carbon Dioxide Anion Gap BUN Creatinine GFR Calculation Glucose POC Glucose 132 H 112 H Calcium Phosphorus Magnesium Iron TIBC % Saturation Unsat Iron Binding Transferrin Ferritin Albumin Vitamin B12 Folate 08/23/20 08/23/20 08/23/20 09:32 09:32 09:32 WBC RBC Hgb Hct MCV MCH MCHC RDW Plt Count MPV Neut % (Auto) Lymph % (Auto) [place] % (Auto) Eos % (Auto) Baso % (Auto) Neut # (Auto) Lymph # (Auto) [place] # (Auto) Eos # (Auto) Baso # (Auto) Nucleated RBC % (a uto) Nucleated RBCs # Sodium Potassium Chloride Carbon Dioxide Anion Gap BUN Creatinine GFR Calculation Glucose POC Glucose Calcium Phosphorus Magnesium Iron 91 TIBC 323 % Saturation 28.1 Unsat Iron Binding 232 Transferrin 281 Ferritin 97 Albumin Vitamin B12 350 Folate 9.8 Vitals: Last Vital Signs Temp 98.2 F 08/24/20 07:11 Pulse 65 08/24/20 08:41 Resp 18 08/24/20 08:37 BP 138/81 08/24/20 07:11 Pulse Ox 95 08/24/20 08:37 Discharge Plan Discharge Patient Disposition: Home Condition: Stable Prescriptions: Continued trazodone 150 mg tablet 150 mg PO BEDTIME@1999 PRN (Reason: Sleep) RF: 0 clopidogrel [Plavix] 75 mg tablet 75 mg PO DAILY@08 RF: 0 atorvastatin [Lipitor] 20 mg tablet 20 mg PO DAILY@08 RF: 0 esomeprazole magnesium 40 mg capsule,delayed release(DR/EC) 40 mg PO DAILY@08 RF: 0 buspirone 15 mg tablet 15 mg PO BID@, RF: 0 duloxetine 60 mg Capsule,Delayed Release(Dr/Ec) 60 mg PO DAILY@08 RF: 0 Januvia 100 mg tablet 100 mg PO DAILY@08 RF: 0 carvedilol 3.125 mg Tablet 3.125 mg PO Q12H Qty: 60 RF: 0 metformin 1,000 mg tablet 1,000 mg PO BID@, RF: 0 albuterol sulfate [ProAir HFA] 90 mcg/actuation HFA aerosol inhaler 2 puff inhalation Q6H PRN (Reason: Shortness Of Breath) RF: 0 ondansetron HCl [Zofran] 4 mg tablet 4 mg PO Q6H PRN (Reason: nausea and vomiting) Qty: 20 RF: 0 sucralfate [Carafate] 1 gram Tablet 1 g PO BID@ RF: 0 hydroxyzine pamoate 25 mg Capsule 12.5 mg PO BID PRN (Reason: Anxiety) RF: 0 Anoro Ellipta 62.5-25 mcg/actuation Blister With Device 1 inh INHALATION BID@ RF: 0 pregabalin 200 mg capsule 100 mg PO TID@ RF: 0 Tylenol 325 mg Tablet 325 - 650 mg PO Q6H PRN (Reason: Pain) RF: 0 Jardiance 25 mg tablet 25 mg PO DAILY@00 RF: 0 hydralazine 25 mg tablet 25 mg PO TID@ RF: 0 Held metolazone 2.5 mg tablet 2.5 mg PO DAILY@08 RF: 0 Hold Instructions: Resume on 08/31/20. Please ask your primary care provider to monitor your electrolytes and kidney function and adjust your medications accordingly. bumetanide 0.5 mg tablet 0.5 mg PO BID@0800,1999 RF: 0 Hold Instructions: Resume on 08/28/20. Please ask your primary care physician to monitor your electrolytes and kidney function. Please ask your provider to adjust your medications if needed. lisinopril 5 mg tablet 5 mg PO DAILY@08 RF: 0 Hold Instructions: Resume on 08/29/20. Please ask your primary care provider to monitor your electrolytes and kidney function and adjust your medications accordingly. Discontinued pioglitazone 30 mg tablet 30 mg PO DAILY@08 RF: 0 Discharge Orders: Discharge Order (Routine); Ordered 08/24/20 Ordered By: Ignacio Dowell Other Ambulatory Orders: Comprehensive Metabolic Panel (Routine) Timeframe: 1 Week Facility: [facility] - Location: Lab - Main Lab Ordered By: Ignacio Dowell Referrals: Alexandro Zapien MD [Physician] - 4-7 days (Fecal occult blood testing positive.) Nazia Jha PA [Primary Care Provider] - 08/30/20 2:00 pm Discharge Diet: Cardiac and Diabetic Discharge Activity: Resume usual activity Patient Instructions: GI Bleeding, Dehydration (DC), Acute Kidney Injury (DC) Activity Restrictions/Additional Instructions: Please follow-up with your primary care physician early next week. Please ask your provider to recheck your kidney function and electrolytes and adjust your medications. Please come back to emergency room if develop any weakness or lightheadedness, chest pain, palpitations, shortness of breath, fever or chills, nausea or vomiting, diarrhea, rectal blood or black stool, or any other new complaints. 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
[2020-08-24] MEDS: cyanocobalamin 1,000 mcg/mL SDV 1000 MCG SUBCUT (10:07)
[2020-08-24 11:25] LABS: Glucose Point of Care 110 mg/dL (70-110)
--- NOTE | 2020-08-24 12:38 | PC.RESP ---
Smoking Cessation information sent to patient.
--- NOTE | 2020-08-24 12:40 | PC.RESP ---
Smoking Cessation information sent to patient.
[2020-08-24 12:57] VITALS: BP 138/81; PULSE 65; RESP 17; TEMP 36.8; O2SAT 93
== END 2020-08-24 13:13 | disposition home or self-care (01) | DRG 683 ==
LOC: ER 22:36 → MEDSURG 22:50
PROVIDERS: Admitting Provider Internal Medicine; Emergency Provider Emergency Medicine; PCP Physician Assistant; Visit Provider Internal Medicine
DX: N17.9 Acute kidney failure, unspecified (principal); I50.32 Chronic diastolic (congestive) heart failure; E86.0 Dehydration; I11.0 Hypertensive heart disease with heart failure; Z96.659 Presence of unspecified artificial knee joint; Z96.82 Presence of neurostimulator; G56.03 Carpal tunnel syndrome, bilateral upper limbs; J44.9 Chronic obstructive pulmonary disease, unspecified; Z86.73 Personal history of transient ischemic attack (TIA), and cerebral infarction without residual deficits; F41.8 Other specified anxiety disorders; E11.9 Type 2 diabetes mellitus without complications; Z79.891 Long term (current) use of opiate analgesic; K21.9 Gastro-esophageal reflux disease without esophagitis; I25.2 Old myocardial infarction; F17.220 Nicotine dependence, chewing tobacco, uncomplicated; D64.9 Anemia, unspecified; Z79.02 Long term (current) use of antithrombotics/antiplatelets; Z79.51 Long term (current) use of inhaled steroids; Z79.84 Long term (current) use of oral hypoglycemic drugs
CPT/HCPCS: 12345; 36415; 36416; 51702; 74176; 80048; 80053; 80069; 81003; 82044; 82274; 82570; 82607; 82728; 82746; 82962; 83540; 83550; 83735; 83880; 84300; 84466; 85025; 93005; 94640; 96372; 99283; J1644; J3420; J7030

== ENCOUNTER → 2020-10-04 13:46 | Outpatient (BNVA) | payer MEDICARE, MEDICAID, SELFPAY | PROVIDERS: PCP Physician Assistant; Visit Provider Surgery | DX: Z20.822 Contact with and (suspected) exposure to COVID-19 (principal) | CPT/HCPCS: 87635 ==

== ENCOUNTER → 2020-10-19 14:54 | Outpatient (BNVA) | payer MEDICARE, MEDICAID, SELFPAY | PROVIDERS: PCP Physician Assistant; Visit Provider Surgery | DX: K92.1 Melena (principal); Z01.812 Encounter for preprocedural laboratory examination; Z20.822 Contact with and (suspected) exposure to COVID-19 | CPT/HCPCS: 87635 ==

== ENCOUNTER 2020-10-24 07:24 | Day surgery (SDC) | payer MEDICARE, MEDICAID, SELFPAY ==
[2020-10-22 13:31] VITALS: BMI 40.6
--- NOTE | 2020-10-24 07:34 | ANES.PREANE2 ---
Pre-Anesthetic Assessment Pre-Anesthetic Assessment: Height/Weight: Height 1.52 m Weight 94.347 kg Preop Diagnosis: blood instool Proposed Procedure: Operation Date: 10/24/20 09:00 Proposed Procedures p EGD [id number] k21.9 k92.1(Not Applicable) - Yoshi Zhou MD s Colonoscopy(Not Applicable) - Yoshi Zhou MD Familial anesthetic complications: none Was Beta Mikel taken within 24 hours: Yes (Did not take this morning, will have nurse give) Was Clonidine taken within 24 hours: Yes Last intake: npo > 8 hrs Social: Comment: former smoker Exam: Pre-Anes Outpt Exam: alert, oriented x 3, clear to auscultation bilaterally and regular rate & rhythm Airway: MP: 3 Dentition: False Pulmonary: Pulmonary: COPD (2.5 L NC prn) and Sleep apnea (noncompliant with cpap) CV/HEM: CV/HEM: CAD (had angiogram in last year - did not require interventions), CHF, HTN and PR Comments: Echo 07/22 LV systolic function is severely reduced with EF of 25 to 30%. Apical ballooning is noted with preserved function of basal segments. This could represent Takotsubo cardiomyopathy. Grade 1 diastolic dysfunction is present. Mild aortic stenosis is present. GI: GI: GERD Metabolic: Metabolic: DM and Morbid obesity Musc/skel: Musc/skel: OA/DJD Neuropsych: Neuropsych: CVA (on plavix (L side weakness)) and TIA Anesthetic Plan: ASA status: 4 Anesthesia: MAC Risk of > 500 ml blood loss (7ml/kg in children): No PFSH Anesthesia PFSH: Medical History Acute HFrEF (heart failure with reduced ejection fraction) Carpal tunnel syndrome on both sides Chronic radicular low back pain COPD (chronic obstructive pulmonary disease) COPD (chronic obstructive pulmonary disease) CVA (cerebral vascular accident) Depression with anxiety Diabetes Diabetes Encounter for long-term use of opiate analgesic GERD (gastroesophageal reflux disease) HFrEF (heart failure with reduced ejection fraction) History of cerebrovascular accident History of CHF (congestive heart failure) History of GI bleed Hypertension Hypertension Low back pain Non-ST elevation PR (NSTEMI) Opioid contract exists Smokeless tobacco use Stress-induced cardiomyopathy Surgical History H/O knee surgery History of knee replacement History of lumbar surgery Also history of spinal cord stimulator, currently not functioning History of shoulder surgery Family History Other CAD (coronary artery disease) Hypertension Stroke Denies family history of Anesthesia complication Bleeding disorder Social History Smoking and tobacco status: current every day smoker smokeless tobacco Smokeless tobacco details: also smoked cigarrettes quit 10 years. 60 pack years Alcohol intake: never Data Anesthesia Cardiac Studies: Echocardiogram 07/25/20
[2020-10-24 08:15] VITALS: BP 184/104; PULSE 74; RESP 18; TEMP 36.2; O2SAT 88
[2020-10-24 08:33] VITALS: BP 178/72
--- NOTE | 2020-10-24 08:33 | P.HP_ITS ---
Same Day Surgery H&P Indication for Procedure/HPI DATE OF PROCEDURE: October 24, 2020 CHIEF COMPLAINT/INDICATIONFOR SURGICAL PROCEDURE: Blood in stool PREOP DIAGNOSIS: Blood in stool PLANNED PROCEDRUE: Operation Date: 10/24/20 09:00 Proposed Procedures p EGD 07824 [id number] k21.9 k92.1(Not Applicable) - Yoshi Zhou MD s Colonoscopy(Not Applicable) - Yoshi Zhou MD This is a pleasant 75 years old female patient morbidly obese with a current BMI of 42.5, with associated multiple medical comorbidities, history of heart f ailure, on long-term use of opiate analgesics Patient was recently hospitalized for dehydration and was found blood in stool upon testing, patient denies cornell bleeding per rectum and she does not report herself seeing blood in her stools, patient comes today escorted by her son. Denies history of colon cancer. Patient is referred to acute specialist to discuss potential EGD and colonoscopy Interim history 10/24/2020 Patient comes today to the GI lab escorted by her son for diagnostic EGD and colonoscopy. ROS All systems have been reviewed negative except as per the above or per problem list. Medications/Allergies* Home Medications Medication Instructions Recorded Confirmed Type atorvastatin 20 mg tablet 20 mg PO DAILY@79909/30/19 10/24/20 History clopidogrel 75 mg tablet 75 mg PO DAILY@09/30/19 10/24/20 History trazodone 150 mg tablet 150 mg PO BEDTIME@1999 PRN tab 09/30/19 10/24/20 History Januvia 100 mg PO DAILY@03/19/20 10/24/20 History buspirone 15 mg PO BID@03/19/20 10/24/20 History duloxetine 60 mg PO DAILY@79903/19/20 10/22/20 History esomeprazole magnesium 40 mg PO DAILY@79903/19/20 10/24/20 History albuterol sulfate [ProAir HFA] 2 puff INHALATION Q6H PRN 06/11/20 10/24/20 History metformin 1,000 mg PO BID@06/11/20 10/24/20 History Anoro Ellipta 1 inh INHALATION BID@07/23/20 10/24/20 History hydroxyzine pamoate 12.5 mg PO BID PRN 07/23/20 10/24/20 History pregabalin [Lyrica] 100 mg PO TID@07/23/20 10/24/20 History Jardiance 25 mg PO DAILY@79908/22/20 10/24/20 History acetaminophen [Tylenol] 325 - 650 mg PO Q6H PRN 08/22/20 10/24/20 History bumetanide 0.5 mg PO BID@799,199908/22/20 10/24/20 History hydralazine 25 mg PO TID@08/22/20 10/24/20 History lisinopril 5 mg PO DAILY@08/22/20 10/24/20 History metolazone 2.5 mg PO DAILY@08/22/20 10/24/20 History Allergies/Adverse Reactions Allergy/AdvReac Type Severity Reaction Status Date / Time No Known Allergies Allergy Verified 10/24/20 08:34 Pertinent History/Comorbid Conditions* Medical History (Updated 09/01/20 @ 09:06 by Yoshi Zhou MD) Acute HFrEF (heart failure with reduced ejection fraction) Carpal tunnel syndrome on both sides Chronic radicular low back pain COPD (chronic obstructive pulmonary disease) COPD (chronic obstructive pulmonary disease) CVA (cerebral vascular accident) Depression with anxiety Diabetes Diabetes Encounter for long-term use of opiate analgesic GERD (gastroesophageal reflux disease) HFrEF (heart failure with reduced ejection fraction) History of cerebrovascular accident History of CHF (congestive heart failure) History of GI bleed Hypertension Hypertension Low back pain Non-ST elevation DE (NSTEMI) Opioid contract exists Smokeless tobacco use Stress-induced cardiomyopathy Surgical History (Updated 03/19/20 @ 18:07 by John Rowe MD) H/O knee surgery History of knee replacement History of lumbar surgery Also history of spinal cord stimulator, currently not functioning History of shoulder surgery Family History (Updated 09/30/19 @ 15:31 by Rachel Wilkerson LPN) CAD (coronary artery disease) Hypertension Stroke Denies family history of Anesthesia complication Bleeding disorder Social History Smoking and tobacco status: current every day smoker smokeless tobacco Smokeless tobacco details: also smoked cigarrettes quit 10 years. 60 pack years Alcohol intake: never Pertinent Exam Findings alert, oriented x 3, clear to auscultation bilaterally, regular rate & rhythm and procedure specific exam findings (Abdominal examination mild tenderness otherwise soft no signs of peritoniti) Recommendations Surgery/Procedure today (Diagnostic EGD and colonoscopy) Other Plans: Plan of care; After thorough history and physical examination and reviewing the chart, plan to perform a diagnostic esophagogastroduodenoscopy and diagnostic colonoscopy with possible biopsy and possible polypectomy. I discussed with the patient in detail the risks,benefits,alternatives and indications.The risk of aspiration, bleeding, soft tissue injury, perforation of the stomach/esophagus/colon and other potential concomitant complications were explained to the patient in details also the potential need for Thoracotomy and or Laproscoy/Laparotomy to repair any related complications including but not limited to colectomy and or Closotomy. The patient understood this well and did agree to proceed. Rationale was carefully and clearly discussed with the patient.Appropriate informed consent have been reviewed and signed Verbal and written Instructions were given to the patient for colonoscopy prep Coding Level of Care Code Acute Electric Range Preparer for marcelina Dinero
[2020-10-24] MEDS: sodium chloride 0.9% 1,000 ML 30 ML IV (08:49)
[2020-10-24 09:42] VITALS: BP 160/93; PULSE 79; RESP 16; TEMP 36.1; O2SAT 95
[2020-10-24 10:00] VITALS: PULSE 78; RESP 16; O2SAT 95
[2020-10-24 12:45] LABS: Glucose Point of Care 112 mg/dL (70-110)
--- NOTE | 2020-10-24 20:19 | ANE.PACU2 ---
Inpatient post-anesthesia follow up: Airway intact: Yes Vital signs: Temperature 97 F Pulse Rate 78 Respiratory Rate 16 Blood Pressure 160/93 Pulse Oximetry 95 Oxygen Delivery Me thod Nasal Cannula Oxygen Flow Rate 2 Fraction of Inspir ed Oxygen Hydration adequate: Yes Nausea and vomiting: No Pain level: 1 Mental status: Baseline
[2020-10-25 06:28] LABS: H. Pylori / CLO Test Negative
== END 2020-10-24 10:35 | disposition home or self-care (01) ==
PROVIDERS: PCP Physician Assistant; Visit Provider Surgery
PROC: 0DJ08ZZ Inspection of Upper Intestinal Tract, Via Natural or Artificial Opening Endoscopic (ICD-10-PCS; CPT 43235; principal; 2020-10-24 09:00)
PROC: 0DJD8ZZ Inspection of Lower Intestinal Tract, Via Natural or Artificial Opening Endoscopic (ICD-10-PCS; CPT 45378; 2020-10-24 09:00)
DX: K92.1 Melena (principal); K29.70 Gastritis, unspecified, without bleeding; E66.01 Morbid (severe) obesity due to excess calories; Z68.41 Body mass index [BMI] 40.0-44.9, adult; I50.9 Heart failure, unspecified; Z79.891 Long term (current) use of opiate analgesic; J44.9 Chronic obstructive pulmonary disease, unspecified; Z86.73 Personal history of transient ischemic attack (TIA), and cerebral infarction without residual deficits; F32.9 Major depressive disorder, single episode, unspecified; F41.9 Anxiety disorder, unspecified; E11.9 Type 2 diabetes mellitus without complications; Z79.4 Long term (current) use of insulin; I25.2 Old myocardial infarction; Z82.49 Family history of ischemic heart disease and other diseases of the circulatory system; F17.290 Nicotine dependence, other tobacco product, uncomplicated; Z79.02 Long term (current) use of antithrombotics/antiplatelets
CPT/HCPCS: 36416; 43239; 45378; 82962; 87077; 96360; 96361; J2704; J3490; J7030

== ENCOUNTER 2020-11-19 12:07 | Inpatient (IN) | payer MEDICARE, MEDICAID, SELFPAY ==
[2020-11-19] VITALS (44 sets, daily range): BP systolic 143–205; BP diastolic 81–123; PULSE 51–108; RESP 5–25; TEMP 36.6–37.1; O2SAT 93–100
--- NOTE | 2020-11-19 12:25 | XRR_ITS ---
PROCEDURE INFORMATION: Exam: XR Chest Exam date and time: 11/19/2020 1:01 PM Age: 75 years old Clinical indication: Cough and dyspnea; Additional info: Dyspnea/cough TECHNIQUE: Imaging protocol: XR of the chest. Views: 1 view. COMPARISON: CR XR chest 2V* [id number] 07/26/2020 8:14 AM FINDINGS: Tubes, catheters and devices: Neurostimulator wires project on the thoracic canal. Lungs: There is pulmonary vascular congestion. There are hazy bilateral interstitial infiltrates greater on the right side. Pleural spaces: There is a small right pleural effusion. Heart/Mediastinum: The cardiac silhouette is enlarged. Bones/joints: Unremarkable. XR/XR chest 1V portable [id number] IMPRESSION: CHF with mild interstitial edema and small effusion.
[2020-11-19 12:47] LABS: ABG PH Result 7.35 (7.35-7.45); Alveolar-Arterial Oxygen Gradi 10.2 mmHg (5-10); Arterial Blood Gas Hematocrit 35.7 % (37-47); Base Excess ABG 6.4 mmol/L (-2.0-2.0); Blood Gas Allen Test Pos; Blood Gas Operator Identificat MONRO; Blood Gas Sample Site Radial, left; Blood Gas Sample Type Arterial; Carboxyhemoglobin 0.9 %THgb (0.4-20.1); HCO3 ABG 33.6 mmol/L (22-26); Ionized Calcium Level - ABG 1.3 mmol/L (1.1-1.4); Methemoglobin 0.9 % (0.4-1.5); Oxygen Device BIPAP; Oxygen Saturation ABG 98.8; Potassium Level - ABG 3.3 mmol/L (3.5-5.0); Total Hemoglobin 11.7 g/dL (12-16)
[2020-11-19 12:48] LABS: ABG PCO2 60.6 mmHg (35-45)
[2020-11-19 12:55] LABS: Basophils # 0.1 10^3/uL (0.0-0.1); Basophils % 0.5 %; Eosinophils % 0.1 %; Hematocrit 39.6 % (37.0-47.0); Hemoglobin 11.5 g/dL (11.5-15.3); Lymphocytes # 1.4 10^3/uL (0.8-4.8); Lymphocytes % 14.2 %; Mean Corpuscular Hemoglobin 24.7 pg (28.0-34.0); Monocytes # 0.4 10^3/uL (0.2-0.9); Monocytes % 4.3 %; Neutrophils # 7.74 10^3/uL (1.8-7.7); Neutrophils % 80.3 %; Nucleated Red Blood Cells % 0 %; Platelet Count 409 10^3/cmm (130-400); Red Blood Count 4.66 10^6/uL (4.1-5.3); Red Cell Distribution Width 15.3 % (12.1-15.1); White Blood Count 9.6 10^3/uL (4.0-10.0)
[2020-11-19 13:02] LABS: Alanine Aminotransferase 9 U/L (0-33); Albumin Level 3.8 g/dL (3.5-5.2); Alkaline Phosphatase 87 IU/L (35-105); Anion Gap 13.5 (5-19); Aspartate Amino Transferase 9 U/L (0-32); Blood Urea Nitrogen 7 mg/dL (8-23); Carbon Dioxide 33 mmol/L (22-29); Chloride 101 mmol/L (98-107); Globulin 2.6 g/dL (1.3-4.6); Glucose 154 mg/dL (65-115); Osmolality Calculated 299 mOsm/kg (285-295); Potassium 3.5 mmol/L (3.5-5.1); Sodium 144 mmol/L (136-145); Total Bilirubin 0.9 mg/dL (0.15-1.2); Total Protein 6.4 g/dL (6.6-8.7)
--- NOTE | 2020-11-19 13:11 | W.ED.SOB ---
HPI - SOB/Dyspnea General: Chief Complaint: Shortness of Breath/Dyspnea Stated Complaint: SOB, LEG SWELLING, ABD PAIN Time Seen by Provider: 11/19/20 12:15 History of Present Illness: HPI Narrative: 75-year-old female presents to the emergency room with complaints of difficulty breathing for going on the last couple days increased swelling in her legs. Cough is been moderately productive. She has a history of COPD she has not tested positive for Covid nor has she had any in the vaccine. She denies fever anosmia and no diarrhea. Does have significant orthopnea. MD elicited complaint: shortness of breath and cough Pertinent past history: COPD and congestive heart failure Onset (ago): day(s) Context: occurred during exertion Timing: constant Severity: severe Exacerbating factors: lying flat, exertion and warm air Relieving factors: oxygen and rest Associated symptoms: Reports cough, dizziness, extremity pain, lightheadedness, myalgias and orthopnea; Deny abdominal pain, chest congestion, chest pain, diaphoresis, fever(s), hemoptysis, nausea, palpitations, paresthesias, polydipsia, polyuria, sense of impending doom, syncope or vomiting Treatment prior to arrival: oxygen Review of Systems Const: Denies: fever(s) or diaphoresis ENMT: Denies: throat pain, ear or mastoid pain, nasal discharge or nasal congestion Card: Reports: lightheadedness and orthopnea; Denies: chest pain, palpitations or syncope Resp: Denies: hemoptysis or chest congestion GI: Denies: abdominal pain, nausea or vomiting : Denies: flank pain, difficulty voiding, dysuria, urinary frequency or urinary urgency Musc: Reports: extremity pain Skin/Breast: Denies: rash or pruritus Neuro: Reports: dizziness Endo: Denies: polyuria or polydipsia PFS ED PFSH: Medical History Acute HFrEF (heart failure with reduced ejection fraction) Blood in stool Cardiomyopathy Carpal tunnel syndrome on both sides Chronic radicular low back pain COPD (chronic obstructive pulmonary disease) COPD (chronic obstructive pulmonary disease) CVA (cerebral vascular accident) Depression with anxiety Diabetes Diabetes Encounter for long-term use of opiate analgesic Gastritis GERD (gastroesophageal reflux disease) HFrEF (heart failure with reduced ejection fraction) History of cerebrovascular accident History of CHF (congestive heart failure) History of GI bleed Hypertension Hypertension Low back pain Non-ST elevation ND (NSTEMI) Opioid contract exists Smokeless tobacco use Stress-induced cardiomyopathy Takotsubo cardiomyopathy Surgical History H/O knee surgery History of colonoscopy (~11/2020) History of esophagogastroduodenoscopy (EGD) (~11/2020) History of knee replacement History of lumbar surgery Also history of spinal cord stimulator, currently not functioning History of shoulder surgery Family History Other CAD (coronary artery disease) Hypertension Stroke Denies family history of Anesthesia complication Bleeding disorder Social History Smoking and tobacco status: current every day smoker smokeless tobacco Smokeless tobacco details: also smoked cigarrettes quit 10 years. 60 pack years Alcohol intake: never Physical Exam Const: GENERAL APPEARANCE: cooperative ORIENTATION/CONSCIOUSNESS: Yes awake, Yes oriented to person, Yes oriented to place and Yes oriented to time HENMT: COMMON NORMALS: normocephalic, atraumatic and hearing grossly normal bilaterally HEAD & SCALP: normocephalic and atraumatic Resp: EFFORT & INSPECTION: No able to speak in complete sentences and Yes uses accessory muscles AUSCULTATION: rales, rhonchi, wheezes, diminished lung sounds and bronchovesicular breath sounds Cardio: COMMON NORMALS: regular rhythm and No murmurs present (Cardio) RATE: tachycardic RHYTHM: regular rhythm GI: COMMON NORMALS: Soft to palpation and No hepatosplenomegaly present AUSCULTATION: Yes normoactive bowel sounds PALPATION: Yes Soft to palpation, No Tenderness to palpation present (GI), No Guarding due to palpation present (GI) and Yes No hepatosplenomegaly present Neuro: SENSORIUM/ORIENTATION: Yes oriented to person, Yes oriented to place and Yes oriented to time Course Vital Signs: Vital signs: Vital Signs Temperature 98.4 F 11/22/20 04:41 Pulse Rate 61 11/22/20 05:35 Respiratory Rate 25 H 11/22/20 04:30 Blood Pressure 156/77 11/22/20 04:30 Pulse Oximetry 96 11/22/20 05:35 MDM - SOB/Dyspnea MDM Narrative: Medical decision making narrative: Patient presented in acute respiratory failure but refuses intubation. She is placed on BiPAP. She appears to be in congestive heart failure we will go ahead and admit discussed with hospitalist. Lab Data: Labs: Lab Results 11/19/20 11/19/20 11/19/20 Range/Units 11:32 11:32 11:32 WBC 9.6 (4.0-10.0) 10^3/ uL RBC 4.66 (4.1-5.3) 10^6/u L Hgb 11.5 (11.5-15.3) g/dL Hct 39.6 (37.0-47.0) % MCV 85.0 (81-99) fL MCH 24.7 L (28.0-34.0) pg MCHC 29.0 L (30.0-36.0) g/dL RDW 15.3 H (12.1-15.1) % Plt Count 409 H (130-400) 10^3/c mm MPV 10.0 (7.4-10.4) fL Neut % (Auto) 80.3 % Lymph % (Auto) 14.2 % Hancock % (Auto) 4.3 % Eos % (Auto) 0.1 % Baso % (Auto) 0.5 % Neut # (Auto) 7.74 H (1.8-7.7) 10^3/u L Lymph # (Auto) 1.4 (0.8-4.8) 10^3/u L Hancock # (Auto) 0.4 (0.2-0.9) 10^3/u L Eos # (Auto) 0.0 (0.0-0.8) 10^3/u L Baso # (Auto) 0.1 (0.0-0.1) 10^3/u L Nucleated RBC % (a uto) 0 % Nucleated RBCs # 0.0 /100WBC D-Dimer (0-0.59) ug/mIFE U Specimen Type Sample Site ABG pH (7.35-7.45) ABG pCO2 (35-45) mmHg ABG pO2 (80.0-100.0) mmH g ABG HCO3 (22-26) mmol/L ABG O2 Saturation ABG Base Excess (-2.0-2.0) mmol/ L Cornel Test A-a O2 Gradient (5-10) mmHg Hematocrit (37-47) % Hgb O2 Saturation (95-100) % Carboxyhemoglobin (0.4-20.1) %THgb Methemoglobin (0.4-1.5) % Total Hemoglobin (12-16) g/dL Ionized Calcium (1.1-1.4) mmol/L O2 Delivery Device FiO2 % Residential Program Coordinator ID Sodium 144 (136-145) mmol/L Potassium 3.5 (3.5-5.1) mmol/L Chloride 101 (98-107) mmol/L Carbon Dioxide 33 H (22-29) mmol/L Anion Gap 13.5 (5-19) BUN 7 L (8-23) mg/dL Creatinine 0.3 L (0.5-0.9) mg/dL GFR Calculation Not Reportable Glucose 154 H (65-115) mg/dL Calculated Osmolal ity 299 H (285-295) mOsm/k g Calcium 9.0 (8.5-10.5) mg/dL Iron (37-145) ug/dL TIBC mcg/dl % Saturation (20-50) % Unsat Iron Binding (112-347) ug/dL Total Bilirubin 0.9 (0.15-1.2) mg/dL AST 9 (0-32) U/L ALT 9 (0-33) U/L Alkaline Phosphata se 87 (35-105) IU/L Troponin T Baselin e 34 H (0-10) ng/L NT-Pro-B Natriuret Pep (0-125) pg/mL Total Protein 6.4 L (6.6-8.7) g/dL Albumin 3.8 (3.5-5.2) g/dL Globulin 2.6 (1.3-4.6) g/dL Procalcitonin (0-0.5) ng/mL TSH (0.27-4.20) uIU/ mL Urine Color (Yellow) Urine Appearance (CLEAR) Urine pH (5-7) Ur Specific Gravit y (1.005-1.030) Urine Protein (Negative) Urine Glucose (UA) (Normal) Urine Ketones (Negative) Urine Blood (Negative) Urine Nitrate (Negative) Urine Bilirubin (Negative) Urine Urobilinogen (Negative) mg/dL Ur Leukocyte Pamela ase (Negative) Urine RBC (0-2) /hpf Urine WBC (0-5) /hpf Ur Squamous Epith Cells (0-5) /hpf Amorphous Sediment /hpf Urine Bacteria (NONE) /hpf Hyaline Casts /lpf Urine Mucus /hpf Ur Random Sodium mmol/L Ur Random Potassiu m mmol/L Ur Random Chloride mmol/L Nasal/Oral COVID-1 9 PCR SARS-CoV-2 Ag (Rap id) (Negative) 11/19/20 11/19/20 11/19/20 Range/Units 11:32 11:32 11:32 WBC (4.0-10.0) 10^3/ uL RBC (4.1-5.3) 10^6/u L Hgb (11.5-15.3) g/dL Hct (37.0-47.0) % MCV (81-99) fL MCH (28.0-34.0) pg MCHC (30.0-36.0) g/dL RDW (12.1-15.1) % Plt Count (130-400) 10^3/c mm MPV (7.4-10.4) fL Neut % (Auto) % Lymph % (Auto) % Hancock % (Auto) % Eos % (Auto) % Baso % (Auto) % Neut # (Auto) (1.8-7.7) 10^3/u L Lymph # (Auto) (0.8-4.8) 10^3/u L Hancock # (Auto) (0.2-0.9) 10^3/u L Eos # (Auto) (0.0-0.8) 10^3/u L Baso # (Auto) (0.0-0.1) 10^3/u L Nucleated RBC % (a uto) % Nucleated RBCs # /100WBC D-Dimer 0.74 H (0-0.59) ug/mIFE U Specimen Type Sample Site ABG pH (7.35-7.45) ABG pCO2 (35-45) mmHg ABG pO2 (80.0-100.0) mmH g ABG HCO3 (22-26) mmol/L ABG O2 Saturation ABG Base Excess (-2.0-2.0) mmol/ L Cornel Test A-a O2 Gradient (5-10) mmHg Hematocrit (37-47) % Hgb O2 Saturation (95-100) % Carboxyhemoglobin (0.4-20.1) %THgb Methemoglobin (0.4-1.5) % Total Hemoglobin (12-16) g/dL Ionized Calcium (1.1-1.4) mmol/L O2 Delivery Device FiO2 % Residential Program Coordinator ID Sodium (136-145) mmol/L Potassium (3.5-5.1) mmol/L Chloride (98-107) mmol/L Carbon Dioxide (22-29) mmol/L Anion Gap (5-19) BUN (8-23) mg/dL Creatinine (0.5-0.9) mg/dL GFR Calculation Glucose (65-115) mg/dL Calculated Osmolal ity (285-295) mOsm/k g Calcium (8.5-10.5) mg/dL Iron 38 (37-145) ug/dL TIBC 313 mcg/dl % Saturation 12.1 L (20-50) % Unsat Iron Binding 275 (112-347) ug/dL Total Bilirubin (0.15-1.2) mg/dL AST (0-32) U/L ALT (0-33) U/L Alkaline Phosphata se (35-105) IU/L Troponin T Baselin e (0-10) ng/L NT-Pro-B Natriuret Pep 6025 H (0-125) pg/mL Total Protein (6.6-8.7) g/dL Albumin (3.5-5.2) g/dL Globulin (1.3-4.6) g/dL Procalcitonin 0.05 (0-0.5) ng/mL TSH 1.37 (0.27-4.20) uIU/ mL Urine Color (Yellow) Urine Appearance (CLEAR) Urine pH (5-7) Ur Specific Gravit y (1.005-1.030) Urine Protein (Negative) Urine Glucose (UA) (Normal) Urine Ketones (Negative) Urine Blood (Negative) Urine Nitrate (Negative) Urine Bilirubin (Negative) Urine Urobilinogen (Negative) mg/dL Ur Leukocyte Pamela ase (Negative) Urine RBC (0-2) /hpf Urine WBC (0-5) /hpf Ur Squamous Epith Cells (0-5) /hpf Amorphous Sediment /hpf Urine Bacteria (NONE) /hpf Hyaline Casts /lpf Urine Mucus /hpf Ur Random Sodium mmol/L Ur Random Potassiu m mmol/L Ur Random Chloride mmol/L Nasal/Oral COVID-1 9 PCR SARS-CoV-2 Ag (Rap id) (Negative) 11/19/20 11/19/20 11/19/20 Range/Units 12:36 12:41 13:42 WBC (4.0-10.0) 10^3/ uL RBC (4.1-5.3) 10^6/u L Hgb (11.5-15.3) g/dL Hct (37.0-47.0) % MCV (81-99) fL MCH (28.0-34.0) pg MCHC (30.0-36.0) g/dL RDW (12.1-15.1) % Plt Count (130-400) 10^3/c mm MPV (7.4-10.4) fL Neut % (Auto) % Lymph % (Auto) % Hancock % (Auto) % Eos % (Auto) % Baso % (Auto) % Neut # (Auto) (1.8-7.7) 10^3/u L Lymph # (Auto) (0.8-4.8) 10^3/u L Hancock # (Auto) (0.2-0.9) 10^3/u L Eos # (Auto) (0.0-0.8) 10^3/u L Baso # (Auto) (0.0-0.1) 10^3/u L Nucleated RBC % (a uto) % Nucleated RBCs # /100WBC D-Dimer (0-0.59) ug/mIFE U Specimen Type Arterial Sample Site Radial, left ABG pH 7.35 (7.35-7.45) ABG pCO2 60.6 H* (35-45) mmHg ABG pO2 132.0 H (80.0-100.0) mmH g ABG HCO3 33.6 H (22-26) mmol/L ABG O2 Saturation 98.8 ABG Base Excess 6.4 H (-2.0-2.0) mmol/ L Cornel Test Pos A-a O2 Gradient 10.2 H (5-10) mmHg Hematocrit 35.7 L (37-47) % Hgb O2 Saturation 97.0 (95-100) % Carboxyhemoglobin 0.9 (0.4-20.1) %THgb Methemoglobin 0.9 (0.4-1.5) % Total Hemoglobin 11.7 L (12-16) g/dL Ionized Calcium 1.3 (1.1-1.4) mmol/L O2 Delivery Device Bipap FiO2 40.0 % Residential Program Coordinator ID Monro Sodium 145.0 H (136-145) mmol/L Potassium 3.3 L (3.5-5.1) mmol/L Chloride (98-107) mmol/L Carbon Dioxide (22-29) mmol/L Anion Gap (5-19) BUN (8-23) mg/dL Creatinine (0.5-0.9) mg/dL GFR Calculation Glucose 167.0 H (65-115) mg/dL Calculated Osmolal ity (285-295) mOsm/k g Calcium (8.5-10.5) mg/dL Iron (37-145) ug/dL TIBC mcg/dl % Saturation (20-50) % Unsat Iron Binding (112-347) ug/dL Total Bilirubin (0.15-1.2) mg/dL AST (0-32) U/L ALT (0-33) U/L Alkaline Phosphata se (35-105) IU/L Troponin T Baselin e (0-10) ng/L NT-Pro-B Natriuret Pep (0-125) pg/mL Total Protein (6.6-8.7) g/dL Albumin (3.5-5.2) g/dL Globulin (1.3-4.6) g/dL Procalcitonin (0-0.5) ng/mL TSH (0.27-4.20) uIU/ mL Urine Color (Yellow) Urine Appearance (CLEAR) Urine pH (5-7) Ur Specific Gravit y (1.005-1.030) Urine Protein (Negative) Urine Glucose (UA) (Normal) Urine Ketones (Negative) Urine Blood (Negative) Urine Nitrate (Negative) Urine Bilirubin (Negative) Urine Urobilinogen (Negative) mg/dL Ur Leukocyte Pamela ase (Negative) Urine RBC (0-2) /hpf Urine WBC (0-5) /hpf Ur Squamous Epith Cells (0-5) /hpf Amorphous Sediment /hpf Urine Bacteria (NONE) /hpf Hyaline Casts /lpf Urine Mucus /hpf Ur Random Sodium mmol/L Ur Random Potassiu m mmol/L Ur Random Chloride mmol/L Nasal/Oral COVID-1 9 PCR Not detected SARS-CoV-2 Ag (Rap id) Negative (Negative) 11/19/20 11/19/20 Range/Units 13:51 13:51 WBC (4.0-10.0) 10^3/ uL RBC (4.1-5.3) 10^6/u L Hgb (11.5-15.3) g/dL Hct (37.0-47.0) % MCV (81-99) fL MCH (28.0-34.0) pg MCHC (30.0-36.0) g/dL RDW (12.1-15.1) % Plt Count (130-400) 10^3/c mm MPV (7.4-10.4) fL Neut % (Auto) % Lymph % (Auto) % Hancock % (Auto) % Eos % (Auto) % Baso % (Auto) % Neut # (Auto) (1.8-7.7) 10^3/u L Lymph # (Auto) (0.8-4.8) 10^3/u L Hancock # (Auto) (0.2-0.9) 10^3/u L Eos # (Auto) (0.0-0.8) 10^3/u L Baso # (Auto) (0.0-0.1) 10^3/u L Nucleated RBC % (a uto) % Nucleated RBCs # /100WBC D-Dimer (0-0.59) ug/mIFE U Specimen Type Sample Site ABG pH (7.35-7.45) ABG pCO2 (35-45) mmHg ABG pO2 (80.0-100.0) mmH g ABG HCO3 (22-26) mmol/L ABG O2 Saturation ABG Base Excess (-2.0-2.0) mmol/ L Cornel Test A-a O2 Gradient (5-10) mmHg Hematocrit (37-47) % Hgb O2 Saturation (95-100) % Carboxyhemoglobin (0.4-20.1) %THgb Methemoglobin (0.4-1.5) % Total Hemoglobin (12-16) g/dL Ionized Calcium (1.1-1.4) mmol/L O2 Delivery Device FiO2 % Residential Program Coordinator ID Sodium (136-145) mmol/L Potassium (3.5-5.1) mmol/L Chloride (98-107) mmol/L Carbon Dioxide (22-29) mmol/L Anion Gap (5-19) BUN (8-23) mg/dL Creatinine (0.5-0.9) mg/dL GFR Calculation Glucose (65-115) mg/dL Calculated Osmolal ity (285-295) mOsm/k g Calcium (8.5-10.5) mg/dL Iron (37-145) ug/dL TIBC mcg/dl % Saturation (20-50) % Unsat Iron Binding (112-347) ug/dL Total Bilirubin (0.15-1.2) mg/dL AST (0-32) U/L ALT (0-33) U/L Alkaline Phosphata se (35-105) IU/L Troponin T Baselin e (0-10) ng/L NT-Pro-B Natriuret Pep (0-125) pg/mL Total Protein (6.6-8.7) g/dL Albumin (3.5-5.2) g/dL Globulin (1.3-4.6) g/dL Procalcitonin (0-0.5) ng/mL TSH (0.27-4.20) uIU/ mL Urine Color Yellow (Yellow) Urine Appearance Sl hazy (CLEAR) Urine pH 5 (5-7) Ur Specific Gravit y 1.020 (1.005-1.030) Urine Protein 3+ H (Negative) Urine Glucose (UA) Norm (Normal) Urine Ketones 2+ H (Negative) Urine Blood 3+ H (Negative) Urine Nitrate Negative (Negative) Urine Bilirubin Neg (Negative) Urine Urobilinogen Norm (Negative) mg/dL Ur Leukocyte Pamela ase Negative (Negative) Urine RBC 0-4 H (0-2) /hpf Urine WBC 0-4 H (0-5) /hpf Ur Squamous Epith Cells 0-4 H (0-5) /hpf Amorphous Sediment Trace /hpf Urine Bacteria Trace (NONE) /hpf Hyaline Casts 15-25 H /lpf Urine Mucus Trace /hpf Ur Random Sodium 74 mmol/L Ur Random Potassiu m 64 mmol/L Ur Random Chloride 198 mmol/L Nasal/Oral COVID-1 9 PCR SARS-CoV-2 Ag (Rap id) (Negative) Discharge Plan Discharge Patient Disposition: Admitted As Inpatient Admit Provider: Riky Angeles Clinical Impression: Acute HFrEF (heart failure with reduced ejection fraction), Hypertension, COPD (chronic obstructive pulmonary disease), Diabetes Condition: Stable Coding Level of Care Code ED Commission Clerk for Chg Fwd Exam Detailed
[2020-11-19 13:16] LABS: SARS Covid-2 Antigen Negative (Negative)
[2020-11-19] MEDS: FUROsemide 10 mg/mL SDV 4mL 40 MG IVP ×2 (13:39→22:01)
--- NOTE | 2020-11-19 14:02 | ECG_ITS ---
[facility] Test Date: 2020-11-19 Pat Name: Lauren Jose Department: Room: Gender: Female Acid Tester: : 1945 Requested By: Manny Gabriel Order Number: [id number] Olga MD: Georgia Brewer M.D. Measurements Intervals [place] Rate: 70 P: 89 DC: 196 QRS: 89 QRSD: 98 T: 240 QT: 365 QTc: 394 Interpretive Statements SINUS RHYTHM WITH OCCASIONAL SUPRAVENTRICULAR PREMATURE COMPLEXES ANTERIOR MYOCARDIAL INFARCTION , AGE INDETERMINATE Compared to ECG 08/22/2020 20:37:46 Myocardial infarct finding now present Sinus bradycardia no longer present First degree AV block no longer present Intraventricular conduction delay no longer present Electronically Signed On 11-20-2020 12:13:22 CDT by Georgia Brewer M.D. [id number] f
[2020-11-19 14:31] LABS: Troponin(5th) Baseline 34 ng/L (0-10)
[2020-11-19 14:57] LABS: Troponin 5 2HR 39.03 ng/L (0-10); Troponin 5 2HR Delta 5.03 ABS# (0-10)
[2020-11-19 15:35] LABS: ABG PH Result 7.39 (7.35-7.45); Alveolar-Arterial Oxygen Gradi 11.3 mmHg (5-10); Arterial Blood Gas Hematocrit 36.1 % (37-47); Base Excess ABG 11.4 mmol/L (-2.0-2.0); Blood Gas Allen Test Pos; Blood Gas Sample Site Radial, right; Blood Gas Sample Type Arterial; HCO3 ABG 38.8 mmol/L (22-26); HGB O2 Sat 96.7 % (95-100); Ionized Calcium Level - ABG 1.3 mmol/L (1.1-1.4); Methemoglobin 0.9 % (0.4-1.5); Oxygen Device BIPAP; Oxygen Saturation ABG 98.6; Potassium Level - ABG 3.3 mmol/L (3.5-5.0); Total Hemoglobin 11.8 g/dL (12-16)
[2020-11-19 15:56] LABS: Glucose Urine UA Norm (Normal); Ketones Urine 2+ (Negative); Protein Urine 3+ (Negative); Urine Appearance SL Hazy (CLEAR); Urine Color Yellow (Yellow); pH Urine 5 (5-7)
[2020-11-19 15:57] LABS: Bilirubin Urine Neg (Negative); Blood Urine 3+ (Negative); Leukocyte Esterase Urine Negative (Negative); Nitrate Urine Negative (Negative); Urobilinogen Urine Norm (Negative)
[2020-11-19 15:58] LABS: Bacteria Urine TRACE /hpf; Mucus Urine TRACE /hpf; RBC Urine 0-4 /hpf (0-2); Squamous Epithelial Cell Urine 0-4 /hpf (0-5); WBC Urine 0-4 /hpf (0-5)
[2020-11-19 16:00] LABS: Add Urine Culture? No; Amorphous Sediment Urine TRACE /hpf; Hyaline Casts Urine 15-25 /lpf
--- NOTE | 2020-11-19 16:02 | ECG_ITS ---
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 Measurements Intervals [place] Rate: 78 P: 82 OK: 203 QRS: 86 QRSD: 110 T: 180 QT: 374 QTc: 427 Interpretive Statements SINUS RHYTHM WITH SINUS ARRHYTHMIA ANTERIOR MYOCARDIAL INFARCTION , PROBABLY RECENT [40+ ms Q WAVE AND/OR ST/T ABNORMALITY IN V3/V4] Compared to ECG 11/19/2020 14:46:03 No significant changes Electronically Signed On 11-20-2020 12:35:42 CDT by Georgia Brewer M.D. [id number] f
--- NOTE | 2020-11-19 16:17 | PC.NURSE ---
Attempted to call report, ICU nurse unable to take report as they are not ready for her.
--- NOTE | 2020-11-19 17:50 | CTR_ITS ---
PROCEDURE INFORMATION: Exam: CTA Chest With Contrast Exam date and time: 11/19/2020 6:18 PM Age: 75 years old Clinical indication: Shortness of breath; Patient HX: SOB, cough, swelling in legs; Additional info: Pe TECHNIQUE: Imaging protocol: Computed tomographic angiography of the chest with contrast. 3D rendering (Not supervised by radiologist): MIP and/or 3D reconstructed images were created by the technologist. Radiation optimization: All CT scans at this facility use at least one of these dose optimization techniques: automated exposure control; mA and/or kV adjustment per patient size (includes targeted exams where dose is matched to clinical indication); or iterative reconstruction. Contrast material: OMNI 350; Contrast volume: 86 ml; Contrast route: INTRAVENOUS (IV); COMPARISON: CTA Chest-Pulmonary Emb [id number] 07/14/2018 6:09 PM RADIATION DOSE METRICS: Total DLP (mGy-cm): 582.81 FINDINGS: Tubes, catheters and devices: Thoracic epidural stimulator catheter in place. Pulmonary arteries: Central pulmonary arteries are moderately dilated without filling defects. Aorta: Unremarkable. No aortic aneurysm. No aortic dissection. Lungs: Bilateral lower lobe compressive atelectasis. Moderate severity emphysema. No focal pulmonary consolidation. No significant septal thickening. No peripheral honeycombing. No obstructing endobronchial lesion. Pleural spaces: Small to moderate bilateral pleural effusions. Heart: Unremarkable. No cardiomegaly. No pericardial effusion. Lymph nodes: Unremarkable. No enlarged lymph nodes. Gallbladder and bile ducts: Cholecystectomy. Bones/joints: Unremarkable. No acute fracture. Soft tissues: Unremarkable. CT/CT angio chest PE protcl [id number] IMPRESSION: 1. Negative for pulmonary embolism. 2. Fluid overload changes in the chest. Radiation Dose CTDIVOL = (mGy): DLP = 582.81 (mGy-cm)
--- NOTE | 2020-11-19 17:55 | PM.HP ---
Providers/Chief Complaint Primary Care Provider: Nazia Jha Chief Complaint: SOB, LEG SWELLING, ABD PAIN History of Present Illness Lauren Jose is a 75 year old female with past medical history of COPD, chronic oxygen needs with 2 L and BiPAP at night, type diabetes mellitus, hypertension, GERD, CHF with EF of 30 to 35%, CAD with last cardiac catheterization in August 2019 which revealed patent coronaries.ECHO showed severely reduced EF with apical akinesis and hyperdynamic basal segments consistent with Takotsubo cardiomyopathy with EF of 30-35%. She was last admitted in the hospital in August 2020 when she was found to be in RO and her diuretics were stopped on that discharge with advised to follow-up with cardiology and primary care provider. History taken over the phone by patient's daughter and with patient somewhat as she is on BiPAP. Patient states she has been having difficulty in breathing getting worse for last 1 week with swelling in her lower limbs getting worse for over 2 to 3 weeks. Patient sleeps in hospital bed and has been needing more propping up position for last 2 to 3 weeks. She has been having chronic cough with expectoration which has not changed. She is also complaining of abdominal distention getting worse for over couple of weeks. Appetite has been poor for last 1 week. Denies any fever,: Sick contact, headache, chest pain, palpitations. As per patient and patient's daughter she has been having on and off diarrhea which has been going on for last couple of months for which she had EGD and colonoscopy with Dr. Zhou as an outpatient and was found to have mild gastritis on EGD with a normal colonoscopy. Blood work in the ER showed a white count 9.6, hemoglobin of 11.5, RDW of 15.3, platelet count of 409, ABG showing a pH of 7.39 with PCO2 of 65, PO2 of 119, BMP with sodium of 144, potassium 3.5, carbon dioxide 33, creatinine of 0.3 UA negative for any signs of infection. Her last echocardiogram done in July 2020 showed EF of 25 to 30% with grade 1 diastolic dysfunction with apical akinesis consistent with Takotsubo cardiomyopathy with mildly reduced right ventricular functions mild aortic stenosis. Review of Systems General: Reports: 10 or more systems reviewed and unremarkable except in HPI and below Const: Denies: fever(s), chills, body aches, change in appetite, change in weight, malaise, night sweats, diaphoresis, change in sleep pattern, daytime sleepiness or snoring Eyes: Denies: change in vision, blurry vision, photophobia, eye discomfort or eye discharge ENMT: Denies: throat pain, enlarged tonsils, hoarseness, mouth pain, oral sores, dry mouth, tinnitus, nasal congestion or post nasal drip Card: Denies: chest pain, palpitations, irregular heart rhythm, edema, swelling of feet/ankles, lightheadedness, syncope, pre-syncope, dyspnea on exertion, orthopnea, leg pain with exertion or acrocyanosis Resp: Denies: dyspnea, productive cough, non-productive cough, wheezing, stridor, pain on inspiration, change in phlegm color, hemoptysis or chest congestion GI: Denies: abdominal pain, nausea, vomiting, hematemesis, coffee ground emesis, dysphagia, heartburn, diarrhea, constipation, bloating, GI cramping, change in bowel habits, pain on defecation, hematochezia or melena : Denies: flank pain, dysuria, urinary frequency, urinary urgency, urinary hesitancy, nocturia or hematuria Musc: Denies: neck pain, back pain, extremity pain, joint pain, joint swelling, joint redness, joint stiffness or limited range of motion Neuro: Denies: headache(s), numbness in extremities, weakness in extremities, sensory changes, lack of coordination, difficulty walking, frequent falls, dizziness, vertigo, confusion, Slurred speech present, difficulty communicating thoughts or seizure-like activity Psych: Denies: anxiety, depression, mood swings, panic attacks, hopelessness or irritability Endo: Denies: polyuria, polydipsia, tired all the time, cold intolerance, excessive sweating, flushing or heat intolerance Lavelle/Lymph: Denies: easy bruising or easy bleeding All/Imm: Denies: tongue swelling, facial swelling or acute wheezing Medications/Allergies Home Medications Medication Instructions Recorded Confirmed Last Taken Type atorvastatin 20 mg tablet 20 mg PO DAILY@0800 09/30/19 11/19/20 10/23/20 08:00 History clopidogrel 75 mg tablet 75 mg PO DAILY@08 09/30/19 11/19/20 10/23/20 08:00 History trazodone 150 mg tablet 150 mg PO BEDTIME@1999 PRN tab 09/30/19 11/19/20 10/23/20 08:00 History buspirone 15 mg PO BID@03/19/20 11/19/20 10/23/20 08:00 History duloxetine 60 mg PO DAILY@79903/19/20 11/19/20 08/22/20 History esomeprazole magnesium 40 mg PO DAILY@79903/19/20 11/19/20 10/23/20 08:00 History albuterol sulfate [ProAir HFA] 2 puff INHALATION Q6H PRN 06/11/20 11/19/20 10/23/20 08:00 History metformin 1,000 mg PO BID@06/11/20 11/19/20 10/23/20 08:00 History ondansetron HCl [Zofran] 4 mg PO Q6H PRN #20 tab 06/11/20 11/19/20 10/23/20 08:00 Rx Anoro Ellipta 1 inh INHALATION BID@07/23/20 11/19/20 10/23/20 08:00 History pregabalin [Lyrica] 100 mg PO TID@07/23/20 11/19/20 10/23/20 08:00 History acetaminophen [Tylenol] 325 - 650 mg PO Q6H PRN 08/22/20 11/19/20 10/23/20 08:00 History metolazone 2.5 mg PO DAILY@08/22/20 11/19/20 10/23/20 08:00 History carvedilol [Coreg] 3.125 mg PO Q12H 11/19/20 11/19/20 Unknown History hydroxyzine HCl 25 mg PO TID PRN 11/19/20 11/19/20 Unknown History losartan 50 mg PO DAILY@79911/19/20 11/19/20 Unknown History pantoprazole 40 mg PO DAILY@79911/19/20 11/19/20 Unknown History sitagliptin [Januvia] 50 mg PO DAILY@79911/19/20 11/19/20 Unknown History sucralfate 1 g PO BID@11/19/20 11/19/20 Unknown History Allergies Allergy/AdvReac Type Severity Reaction Status Date / Time No Known Allergies Allergy Verified 11/10/20 10:48 PFSH Acute PFSH: Medical History Acute HFrEF (heart failure with reduced ejection fraction) Blood in stool Carpal tunnel syndrome on both sides Chronic radicular low back pain COPD (chronic obstructive pulmonary disease) COPD (chronic obstructive pulmonary disease) CVA (cerebral vascular accident) Depression with anxiety Diabetes Diabetes Encounter for long-term use of opiate analgesic Gastritis GERD (gastroesophageal reflux disease) HFrEF (heart failure with reduced ejection fraction) History of cerebrovascular accident History of CHF (congestive heart failure) History of GI bleed Hypertension Hypertension Low back pain Non-ST elevation CA (NSTEMI) Opioid contract exists Smokeless tobacco use Stress-induced cardiomyopathy Surgical History H/O knee surgery History of knee replacement History of lumbar surgery Also history of spinal cord stimulator, currently not functioning History of shoulder surgery Family History Other CAD (coronary artery disease) Hypertension Stroke Denies family history of Anesthesia complication Bleeding disorder Social History Smoking and tobacco status: current every day smoker smokeless tobacco Smokeless tobacco details: also smoked cigarrettes quit 10 years. 60 pack years Alcohol intake: never Vitals/I&O/Wt Last Vital Signs Temp 97.9 F 11/19/20 12:17 Pulse 105 H 11/19/20 15:47 Resp 18 11/19/20 12:17 BP 143/123 11/19/20 12:17 Pulse Ox 98 11/19/20 15:47 Physical Exam Narrative: EXAM NARRATIVE: General: No acute distress, AO x3, on BiPAP, elevated JVD HEENT: PERRLA, pupils bilaterally equal and reactive Chest: Normal vesicular breath sounds, fine crackles bilaterally up to mid lung, right more than left, equal good air entry bilaterally CVS: S1-S2 regular, soft pansystolic murmur at apex, no tachycardia, no gallops, no rubs Abdomen: Soft, distended, nontender, no organomegaly, bowel sounds present Neuro: No focal deficits, no facial deformity, AO x3, power 5/5 in all limbs Urinary Catheter Management^: Dumont: Cath Placed During This Visit: yes Urinary Catheter Date of Insertion: 11/19/20 Urinary Catheter Time of Insertion: 14:59 Data : 11/19/20 11:32 11/19/20 11:32 Micro: Microbiology 11/19/20 14:25 Blood Culture - Preliminary Blood SPECIMEN COLLECTED 11/19/20 14:20 Blood Culture - Preliminary Blood SPECIMEN COLLECTED A&P Assessment and plan (1) Shortness of breath: Status: Acute (2) Acute HFrEF (heart failure with reduced ejection fraction): Status: Acute (3) Takotsubo cardiomyopathy: Status: Acute (4) COPD (chronic obstructive pulmonary disease): Status: Acute (5) Diarrhea: Status: Acute (6) Diabetes: Status: Acute (7) Hypertension: Status: Acute Additional A&P Information 72-year-old female with past medical history of Takotsubo cardiomyopathy with EF 25 to 30%, COPD on chronic oxygen and BiPAP at night presents with difficulty in breathing getting worse over a couple of weeks, swelling in her lower limbs found to be hypercapnic and placed on BiPAP in the ER. Shortness of breath: Most likely secondary to exacerbation of congestive heart failure with underlying COPD. Cannot rule out pneumonia. CT chest with contrast to rule out PE and better evaluation of possible consolidation. For now start patient on vancomycin and Zosyn, azithromycin. Sputum culture, blood culture, proBNP, procalcitonin, urine Legionella, D-dimer, MRSA swab, iron panel. COVID-19 has been sent from the ER. Will monitor. Isolation precautions for now. Lower limb Doppler to rule out DVT. Echocardiogram done within the last 4 months so we will hold off any further echocardiogram for now. Results appreciated. IV Lasix 40 mg twice daily. Continue chronic cardiac medications including atorvastatin 20 mg, Coreg 3.25 mg twice daily, clopidogrel 75 mg daily, losartan 50 mg daily. Dumont catheter, strict input output charting. Daily weights. BiPAP ventilation for now. ABG in a.m. N.p.o. for now. DuoNebs every 6 hours, budesonide twice daily. Type 2 diabetes mellitus: Hold off on any oral hypoglycemics. Insulin sliding scale every 6 hours at mild protocol. Hypertension: Goal blood pressure less than 140/90 mmHg. Antihypertensives as above. Will monitor and change medications accordingly. Diarrhea: Has had multiple extensive work-up in the past including EGD, colonoscopy, infectious work-up. Check C. difficile. Cannot rule out secondary to chronic Metformin use versus congestive gastropathy. Check iron panel, TSH. Will monitor renal function given history of RO in last 4 months. CODE STATUS: Discussed in detail with patient and patient's daughter over the phone. Patient states he does not want any kind of chest compression or mechanical ventilation. She states she has had a long life. DNR/DNI. N.p.o. for now. Protonix OPD prophylaxis. Lovenox 40 mg subcu daily for now. Attestations Medical Necessity Statement*: Admission for more than 2 midnights for management of shortness of breath most likely secondary to acute exacerbation of congestive heart failure Time Spent in Patient Care: Greater than 35 minutes (>than 50% of time spent in counselling and/or direct pt care on unit). Coding Level of Care Code Acute Manager Surgery for [facility] Fwd Diagnoses Shortness of breath R06.02 Acute HFrEF (heart failure with reduced ejection fraction) I50.21 Takotsubo cardiomyopathy I51.81 COPD (chronic obstructive pulmonary disease) J44.9 Diarrhea R19.7 Diabetes E11.9 Hypertension I10
[2020-11-19 18:52] LABS: D Dimer 0.74 ug/mIFEU (0-0.59)
[2020-11-19 19:04] LABS: Troponin 5 6HR 37.17 ng/L (0-10); Troponin 5 6HR Delta 3.17 ng/L (0-12)
[2020-11-19 19:14] LABS: NT Pro B Type Natriuretic Pept 6025 pg/mL (0-125); Procalcitonin 0.05 ng/mL (0-0.5); Thyroid Stimulating Hormone 1.37 uIU/mL (0.27-4.20)
[2020-11-19 19:28] LABS: Iron 38 ug/dL (37-145); Percent Saturation 12.1 % (20-50); Total Iron Binding Capacity 313 mcg/dl; Unsaturated Iron Binding 275 ug/dL (112-347)
[2020-11-19] MEDS: iohexol 350 mg/mL 100 mL Btl IV (20:00)
--- NOTE | 2020-11-19 21:15 | PC.NURSE ---
ICU Arrival; Pt arrived to ICu via gurney around 2114. ER staff X1, and RT staff X1 accompanied pt for transport. Pt moved to ICU bed by Nursing staff X3 without incident. A&O4. SPO2 99% on 3L NC via portable O2 tank. Belongings included personal cell phone with some clothing, and has been placed at bedside. Pt c/o severe pain in bilateral lower extremities. RN gave pain meds in efforts to decrease reported pain levels. Education given on diet order status of NPO, and Bipap restriction of fluids. Pt room orientation completed, call light in reach, bed low and locked, and no verbal needs at this time. Room visible from nurses station. Pt resting with eyes closed at this time.
[2020-11-19] MEDS: morphine 4 mg/mL SDV 1 mL 2 MG IVP (22:01)
[2020-11-19] MEDS: carvedilol 3.125 mg Tablet PO (22:02)
[2020-11-19] MEDS: enoxaparin 40 mg/0.4 mL Syringe SUBCUT (22:02)
--- NOTE | 2020-11-19 22:08 | PC.PHAR ---
Pharmacokinetic dosing service Date: 11/19/20 Time: 2199 Objective: Patient: Lauren Jose Floor: ICU-4 Age: 75 yo Serum creatinine: 0.3 mg/dL Height: 60.0 Inches Weight (kg): 116.006 Diagnosis: Relevant medical/social history: Cultures and sensitivities: Other labs: Assessment: IBW (kg): 45.50 Dosing wt(kg): 73.7 Estimated Creatinine clearance (ml/min): 120.0 CRCL method: Cockcroft and Gault using ibw(default). Drug selected: Vancomycin Loading dose (mg): 0 Vd (liters): 66.3 (factor used: 0.9 L/kg) [place] (hr-1): 0.104 Half life (hrs): 6.66 Recommended dose: 1500 mg Interval: 8 hrs Infusion time (hrs): 1.5 Predicted peak (mcg/mL): 37.1 Predicted trough (mcg/mL): 18.87 Adjusted body weight was selected for vancomycin dosing. To switch back, select the total body weight option above. Renal function is stable [ ] /unstable [ ] Recommendations: Give Vancomycin 1500 mg q 8 hrs with an expected Cpeak of 37.1 mcg/ml and an expected Ctrough of 18.87 mcg/ml Renal dosing of other antibiotics (review renal dosing of other medications and list guidelines here): Thank you for the consult, will continue to follow. Signature: Zaina Reyes [facility]
[2020-11-19] MEDS: vancomycin 1,500 MG/300 ML PIGGYBACK 200 MG IV (22:47)
[2020-11-19 23:51] LABS: Potassium, Radom Urine 64 mmol/L; Urine Random Chloride 198 mmol/L; Urine Random Sodium 74 mmol/L
[2020-11-20] VITALS (141 sets, daily range): BP systolic 105–210; BP diastolic 54–133; PULSE 45–112; RESP 3–22; TEMP 36.6–37.1; O2SAT 87–100
[2020-11-20 00:18] LABS: Glucose Point of Care 116 mg/dL (70-110)
[2020-11-20] MEDS: piperacillin-tazobactam 3.375 GM in sodium chloride 0.9% (plus) 50 ML IV ×3 (00:22→16:32)
[2020-11-20] MEDS: ipratropium-albuterol 3 mL Neb INHALATION ×4 (02:13→20:07)
[2020-11-20 04:06] LABS: Hemoglobin 10.1 g/dL (11.5-15.3); Lymphocytes # 1.6 10^3/uL (0.8-4.8); Neutrophils % 66.4 %; Nucleated Red Blood Cells % 0 %
--- NOTE | 2020-11-20 04:23 | XRR_ITS ---
PROCEDURE INFORMATION: Exam: XR Chest Exam date and time: 11/20/2020 4:32 AM Age: 75 years old Clinical indication: Shortness of breath; Patient HX: SOB, leg swelling, abd pain; Additional info: Lungs TECHNIQUE: Imaging protocol: XR of the chest. Views: 1 view. COMPARISON: CR XR chest 1V portable [id number] 11/19/2020 1:06 PM FINDINGS: Tubes, catheters and devices: Neurostimulator wires project on the thoracic spine. Lungs: There is pulmonary vascular congestion with bilateral interstitial infiltrates. Small effusions blunt the costophrenic angles. These findings are consistent with CHF. Pleural spaces: Small effusions blunt the costophrenic angles. Heart/Mediastinum: The cardiac silhouette is enlarged. Bones/joints: Unremarkable. XR/XR chest 1V portable [id number] IMPRESSION: Congestive heart failure with interstitial pulmonary edema. There is increased interstitial edema in the right lung when compared to previous study.
[2020-11-20 04:25] LABS: Basophils # 0.1 10^3/uL (0.0-0.1); Basophils % 0.7 %; Eosinophils # 0.1 10^3/uL (0.0-0.8); Hematocrit 34.3 % (37.0-47.0); Lymphocytes % 20.7 %; Mean Corpuscular HGB Conc 29.4 g/dL (30.0-36.0); Mean Corpuscular Hemoglobin 24.6 pg (28.0-34.0); Mean Corpuscular Volume 83.7 fL (81-99); Mean Platelet Volume 10.5 fL (7.4-10.4); Monocytes # 0.8 10^3/uL (0.2-0.9); Monocytes % 10.9 %; Platelet Count 317 10^3/cmm (130-400); Red Cell Distribution Width 15.1 % (12.1-15.1); White Blood Count 7.7 10^3/uL (4.0-10.0)
[2020-11-20] MEDS: labetalol 5 mg/mL SDV 20mL 10 MG IVP (04:33)
[2020-11-20] MEDS: morphine 4 mg/mL SDV 1 mL 2 MG IVP ×5 (04:33→21:37)
--- NOTE | 2020-11-20 04:40 | ECG_ITS ---
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: : 1945 Requested By: Ignacio Sy Order Number: [id number] Reading MD: JAY SINHA Measurements Intervals [place] Rate: 52 P: 20 SD: 192 QRS: 41 QRSD: 105 T: 207 QT: 468 QTc: 438 Interpretive Statements SINUS BRADYCARDIA LOW QRS VOLTAGE IN PRECORDIAL LEADS [QRS DEFLECTION < 1.0 mV IN CHEST LEADS] MODERATE T-WAVE ABNORMALITY, CONSIDER ANTEROLATERAL ISCHEMIA [-0.1+ mV T WAVE IN V3-V6] MODERATE T-WAVE ABNORMALITY, CONSIDER INFERIOR ISCHEMIA Compared to ECG 11/19/2020 16:46:18 Low QRS voltage now present T-wave abnormality now present Possible ischemia now present Sinus rhythm no longer present Sinus arrhythmia no longer present Myocardial infarct finding no longer present Electronically Signed On 11-20-2020 23:40:45 CDT by JAY SINHA [id number]
[2020-11-20 04:46] LABS: ABG PH Result 7.28 (7.35-7.45); Alveolar-Arterial Oxygen Gradi 66.3 mmHg (5-10); Arterial Blood Gas Hematocrit 35.9 % (37-47); Base Excess ABG 10.1 mmol/L (-2.0-2.0); Blood Gas Allen Test Pos; Blood Gas Sample Site Radial, right; Blood Gas Sample Type Arterial; HCO3 ABG 39.9 mmol/L (22-26); HGB O2 Sat 94.8 % (95-100); Ionized Calcium Level - ABG 1.3 mmol/L (1.1-1.4); Oxygen Device BIPAP; Oxygen Saturation ABG 96.8; Potassium Level - ABG 3.4 mmol/L (3.5-5.0); Total Hemoglobin 11.7 g/dL (12-16)
[2020-11-20 04:48] LABS: Alanine Aminotransferase 7 U/L (0-33); Albumin Level 3.1 g/dL (3.5-5.2); Alkaline Phosphatase 70 IU/L (35-105); Anion Gap 9.9 (5-19); Aspartate Amino Transferase 9 U/L (0-32); Blood Urea Nitrogen 7 mg/dL (8-23); Calcium 8.6 mg/dL (8.5-10.5); Carbon Dioxide 38 mmol/L (22-29); Chloride 99 mmol/L (98-107); Globulin 2.3 g/dL (1.3-4.6); Glucose 118 mg/dL (65-115); Osmolality Calculated 297 mOsm/kg (285-295); Sodium 144 mmol/L (136-145); Total Protein 5.4 g/dL (6.6-8.7)
[2020-11-20 04:49] LABS: ABG PCO2 85.7 mmHg (35-45)
[2020-11-20 04:50] LABS: Chol HDL Ratio 1.71 mg/dL (0.0-4.40); Cholesterol 108 mg/dL (0-200); HDL Cholesterol 63 mg/dL (60-100); LDL Cholesterol Calculated 23 mg/dL (50-129); Triglycerides 109 mg/dL (0-150); VLDL Cholestrol Calculation 22 mg/dL (0-30)
--- NOTE | 2020-11-20 04:50 | PC.NURSE ---
Code called. See code blue sheet. MD Delmer at bedside. Family notified.
--- NOTE | 2020-11-20 05:03 | PC.NURSE ---
Code Status Change; Patient's daughter verbalized to RN, Delmer CASTILLO, and Angy RN witness, to change the pt's code status from a AND to a Limited code with specific instructions not to intubate. All other measures are to be used if in the circumstance of patient coding.
[2020-11-20 05:07] LABS: Potassium 2.9 mmol/L (3.5-5.1)
--- NOTE | 2020-11-20 05:07 | PM.MISC ---
Miscellaneous Note Note: SACHA GAMEZ was called around 4 AM. The patient suddenly developed arrhythmia and became unresponsive. Later review of the telemetry strip revealed torsades which lasted about 2 minutes. CPR was initiated. The patient received 1 charge of defibrillator with return of sinus rhythm. Mental status slowly improved. The patient complaining of chest pain. The pain is reproducible currently. Lungs reveal wheezes and decreased breath sounds. ABGs revealed hypercapnic respiratory acidosis. Evaluation of the BiPAP settings reveals tidal volumes of about 200-300s with increased pressure support. She also has hypokalemia. Post CPR the patient received: Morphine 2 doses for pain, magnesium sulfate 1 g, KCl 20 mEq, Solu-Medrol 125. Discussed with respiratory therapist. Will adjust pressure settings as tidal volumes start improving after Solu-Medrol avoid barotrauma. Please follow-up on morning lab test results, ABGs, chest x-ray. I discussed the case with nursing staff. Discussed with the patient's daughter on the phone. She wants the patient to be limited code. Okay to do cardiac resuscitation but she does not want the patient to be intubated. DNI. Critical care time spent on this encounter is 45 minutes
--- NOTE | 2020-11-20 05:10 | PC.NURSE ---
New Orders; V/O for 1G mag IV, additional 2mg Morphine IVP for pain, 125 Solumedrol IVP ONCE, 20KCL ONCE, CXR, and 10mg Labatelol IVP was given by MD Delmer.
--- NOTE | 2020-11-20 05:14 | PC.NURSE ---
Visitation Permission; MD Delmer gave special permission for family to come and visit pt at bedside. Family called and updated.
[2020-11-20] MEDS: potassium chloride premix 100 ML 50 MEQ IV (05:26)
[2020-11-20 06:09] LABS: Magnesium 1.1 mg/dL (1.7-2.3); Phosphorus 3.2 mg/dL (2.5-4.5)
[2020-11-20] MEDS: magnesium sulfate premix 2 GM/50 ML PIGGYBACK IV ×2 (08:04→18:16)
[2020-11-20] MEDS: vancomycin 1,500 MG/300 ML PIGGYBACK 200 MG IV (08:05)
[2020-11-20] MEDS: potassium chloride premix 100 ML 25 MEQ IV ×2 (08:05→12:38)
[2020-11-20] MEDS: pantoprazole DR 40 mg Tablet PO (08:27)
[2020-11-20] MEDS: atorvastatin 40 mg Tablet 20 MG PO (08:27)
[2020-11-20] MEDS: clopidogrel 75 mg Tablet PO (08:27)
[2020-11-20] MEDS: sucralfate 1 gm Tablet PO ×2 (08:27→19:34)
[2020-11-20] MEDS: budesonide 0.5 mg/2 mL Neb INHALATION ×2 (08:41→20:07)
--- NOTE | 2020-11-20 09:48 | PC.CHAP ---
Pastoral Care Encounter/Spiritual Assessment Type of Contact [] Declined rough rounder visit [] Patient/Family/Request visit [] Outpatient visit [] Follow-up visit [] Physician referral [] Code/Alert [x] Routine visit [] Staff referral [] Actively dying [] Patient sleeping [] Family support [] [] Out of room [] Palliative care [] [] Receiving care in room [] Pre-surgical visit [] Trauma [] Long length of stay [x] ICU visit x[x] Other: patient trying to rest Relational/Emotional Strength [] Patient feels connected with others/family/visitors/staff [] Distress [] Loneliness/isolation [] Abandonment Spirituality of Patient [] Person of Maria E [] Attends Judaism of their Maria E [] Believes in Prayer [] Reads Bible or Christianity materials [] There are Spiritual issues to be addressed Distribution Superintendent Interventions [x] Prayer [] Active listening [] Non-anxious presence [] Spiritual/emotional support [] Crisis/trauma care [] Spiritual counseling [] Bereavement support [] Provided bereavement packet [] Provided Bible/devotional materials [] Provided toy/stuffed animal, coloring book to patient or family member [] Provided Communion [] Anointing/[place] [] Salvation [x] Completed spiritual assessment [] Other: Impact on Illness or Injury [] Angry [] Fearful [] Anxious [] Often cries [] Exhaustion [] Unable to work [] Unable to attend restoration [] Unable to walk/stand [] Unable to read [] Unable to drive [] Unable to eat/drink [] Unable to sleep [] Unable to be with family [] Patient intubated [] Other: Summary Time spent with patient
[2020-11-20] MEDS: FUROsemide 10 mg/mL SDV 4mL 40 MG IVP ×2 (10:05→12:39)
[2020-11-20] MEDS: azithromycin 500 MG in sodium chloride 0.9% 250 ML 250 MG IV (10:08)
[2020-11-20] MEDS: lidocaine 1% INJ 20 mL 5 ML IV (12:39)
--- NOTE | 2020-11-20 12:44 | USCV_ITS ---
Jose, Lauren Age: 75 Gender: F : 1945 Exam Date: 11/20/2020 14:00 Ordering Phys: Riky Angeles MD Technologist: Mya Damon Exam Location: [facility] [place] Indication: POST CODE BP: 170 / 94 HR: 54 Rhythm: Sinus Technical Quality: Adequate MEASUREMENTS (Male / Female) Normal Values 2D ECHO LV Diastolic Diameter PLAX 5.3 cm 4.2 - 5.9 / 3.9 - 5.3 cm LV Systolic Diameter PLAX 4.4 cm IVS Diastolic Thickness 1.3 cm 0.6 - 1.0 / 0.6 - 0.9 cm IVS Systolic Thickness 1.3 cm LVPW Diastolic Thickness 0.9 cm 0.6 - 1.0 / 0.6 - 0.9 cm LVPW Systolic Thickness 1.3 cm LVOT Diameter 2.0 cm LV Ejection Fraction 2D Teich 37.6 % LV Ejection Fraction MOD 2C 48.5 % LV Ejection Fraction 2C AL 48.7 % LA Diameter 4.3 cm LA Width 5.7 cm LA Height 4.8 cm RA Width 4.6 cm RA Height 5.5 cm M-MODE LV Diastolic Diameter MM 5.8 cm 4.2 - 5.9 / 3.9 - 5.3 cm LV Systolic Diameter MM 4.3 cm LV Ejection Fraction MM Teich 51.1 % IVS Diastolic Thickness MM 0.8 cm 0.6 - 1.0 / 0.6 - 0.9 cm IVS Systolic Thickness MM 1.3 cm LVPW Diastolic Thickness MM 1.1 cm 0.6 - 1.0 / 0.6 - 0.9 cm LVPW Systolic Thickness MM 1.6 cm RV Diastolic Diameter MM 1.5 cm Aortic Annulus Diameter 2.9 cm LA Ao Ratio MM 1.7 MV E Point Septal Separation 1.3 cm DOPPLER AV Peak Velocity 204.0 cm/s LVOT Peak Velocity 89.0 cm/s AV Area Cont Eq vti 1.2 cm squared AV Area Cont Eq pk 1.4 cm squared MV Area PHT 5.0 cm squared Mitral E to A Ratio 1.1 MV E' Velocity 41.5 cm/s Mitral E to MV E' Ratio 10.9 Mitral E to LV E' Lateral Ratio 13.2 Mitral E to LV E' Septal Ratio 9.3 TR Peak Velocity 151.7 cm/s TR Peak Gradient 9.2 mmHg Right Atrial Pressure 3.0 mmHg Pulmonary Artery Systolic Pressu 12.2 mmHg PV Peak Velocity 97.0 cm/s FINDINGS Left Ventricle Moderately increased left ventricular cavity size. Severely decreased left ventricular systolic function. Left ventricular ejection fraction is estimated at 38 %. Global left ventricular hypokinesis. Grade II/IV diastolic dysfunction, moderately elevated filling pressures. Right Ventricle The right ventricle is normal in size and function. Right Atrium The right atrium is normal in size. Left Atrium The left atrium is normal in size. Mitral Valve Moderately thickened mitral valve. No mitral valve stenosis. Moderate mitral valve regurgitation. Aortic Valve Moderate aortic valve calcification. Moderate aortic valve stenosis, mean gradient 7.6 mmHg, ANNAMARIE 1.2 cm squared. Mild aortic valve regurgitation. Tricuspid Valve Structurally normal tricuspid valve without significant stenosis or regurgitation. Pulmonary artery systolic pressure is normal. Pulmonic Valve Structurally normal pulmonic valve without significant stenosis. There is no pulmonic regurgitation. Pericardium Normal pericardium without effusion. Aorta Normal ascending aorta dimension. CONCLUSIONS 1-Moderately increased left ventricular cavity size. Severely decreased left ventricular systolic function. Left ventricular ejection fraction is estimated at 38 %. Global left ventricular hypokinesis. Grade II/IV diastolic dysfunction, moderately elevated filling pressures. 2-Moderate aortic valve calcification. Moderate aortic valve stenosis, mean gradient 7.6 mmHg, ANNAMARIE 1.2 cm squared. Mild aortic valve regurgitation. 3-Moderately thickened mitral valve. No mitral valve stenosis. Moderate mitral valve regurgitation. 4-There is no pericardial effusion. 5-Pulmonary artery systolic pressure is within normal limits. 6-Right atrial pressure is around 5 mm of mercury. 7-No significant change since the prior echocardiogram study of 07/26/2020.. Stacey Muñoz MD (Electronically Signed) Final Date: 21 November 2020 13:08 S
--- NOTE | 2020-11-20 12:46 | PM.PN ---
Subjective Subjective: Interval history: Overnight patient had a rough night. Patient developed torsades at around 3 AM for which she became pulseless and she underwent one cycle of CPR after which she was achieved ROSC. On examination of the morning patient is on BiPAP saturating 98% with heart rate of 58 bpm, patient is awake alert but seems tired. During my examination patient was transferred over to high flow nasal cannula 8 L saturating 98%. Patient has remained hemodynamically stable and afebrile otherwise. Urine output on examination around 300 cc since 6 AM in last 4 hours. Labs and vitals along with imaging results appreciated. Vitals/I&O/Wt Last Vital Signs Temp 97.8 F 11/20/20 08:00 Pulse 58 L 11/20/20 11:10 Resp 14 11/20/20 10:05 BP 124/71 11/20/20 09:00 Pulse Ox 97 11/20/20 11:10 11/19/20 11/20/20 11/20/20 22:59 06:59 14:59 Intake Total 100 / 100 402 / 502 650 / 650 Output Total 300 / 300 1750 / 2050 Balance -200 / -200 -1348 / -1548 650 / 650 Weight last 48 hrs Weight 116.017 kg Weight 116.006 kg Physical Exam Narrative: EXAM NARRATIVE: General: No acute distress, AO x3, on BiPAP, elevated JVD HEENT: PERRLA, pupils bilaterally equal and reactive Chest: Normal vesicular breath sounds, fine crackles bilaterally up to mid lung, right more than left, equal good air entry bilaterally CVS: S1-S2 regular, soft pansystolic murmur at apex, no tachycardia, no gallops, no rubs Abdomen: Soft, distended, nontender, no organomegaly, bowel sounds present Neuro: No focal deficits, no facial deformity, AO x3, power 5/5 in all limbs Urinary Catheter Management^: Dumont: Cath Placed During This Visit: yes Reason for Continuing Indwelling Catheter: Accurate Measurement of Urinary Output in Critically Ill Patients Urinary Catheter Date of Insertion: 11/19/20 Urinary Catheter Time of Insertion: 14:59 Data : 11/20/20 03:15 11/20/20 12:30 Micro: Microbiology 11/20/20 12:32 Blood Culture - Preliminary Blood SPECIMEN COLLECTED 11/20/20 12:30 Blood Culture - Preliminary Blood SPECIMEN COLLECTED 11/19/20 21:30 MRSA Culture - Final Nose 11/19/20 14:20 Blood Culture - Preliminary Blood 11/19/20 13:51 Legionella Urinary Antigen - Final Urine Catheterized 11/19/20 14:25 Blood Culture - Preliminary Blood SPECIMEN COLLECTED A&P Assessment and plan (1) Torsades de pointes: Status: Acute (2) Shortness of breath: Status: Acute (3) Acute HFrEF (heart failure with reduced ejection fraction): Status: Acute (4) Takotsubo cardiomyopathy: Status: Acute (5) COPD (chronic obstructive pulmonary disease): Status: Acute (6) Diarrhea: Status: Acute (7) Diabetes: Status: Acute (8) Hypertension: Status: Acute Additional A&P Information 72-year-old female with past medical history of Takotsubo cardiomyopathy with EF 25 to 30%, COPD on chronic oxygen and BiPAP at night presents with difficulty in breathing getting worse over a couple of weeks, swelling in her lower limbs found to be hypercapnic and placed on BiPAP in the ER. Torsades: Could be secondary to cardiac stress given congestive heart failure. Monitor magnesium, calcium, phosphorus levels. Keep magnesium levels around 3, potassium around 4. Will replete magnesium and potassium accordingly and repeat levels in afternoon. Check EKG for QTC. Continue telemetry monitoring. We will consult cardiology for further recommendations And possible ICD placement Medical reconciliation done for QTC prolonging drugs. On review trazodone, BuSpar, Cymbalta does not cause QTC prolonging while BuSpar actually causes QT shortening. Shortness of breath: Most likely secondary to exacerbation of congestive heart failure with underlying COPD. CT chest results appreciated. Procalcitonin negative on admission. CT chest ruled out pulmonary embolism and active consolidation. For now continue with vancomycin and Zosyn given CPR last night for possible aspiration and patient is critically ill. We will follow-up culture results and de-escalate antibiotics as possible. COVID-19 PCR came back negative. Remove isolation precautions. Increase Lasix to 80 mg twice daily with extra dose right now. Strict input output charting. Target 1.5 to 2 L negative in next 1 to 4 hours. Continue Dumont catheterization. Continue with Coreg and losartan. Will consider adding Aldactone if creatinine function remained stable. Echocardiogram to be repeated. Daily weights. BiPAP ventilation overnight.. DuoNebs every 6 hours, budesonide twice daily. Start patient on Solu-Medrol 40 mg every 8 hours for now. Type 2 diabetes mellitus: Hold off on any oral hypoglycemics. Insulin sliding scale every 6 hours at mild protocol. Hypertension: Goal blood pressure less than 140/90 mmHg. Antihypertensives as above. Will monitor and change medications accordingly. Diarrhea: Has had multiple extensive work-up in the past including EGD, colonoscopy, infectious work-up. Check C. difficile. Cannot rule out secondary to chronic Metformin use versus congestive gastropathy. Check iron panel, TSH. Will monitor renal function given history of RO in last 4 months. CODE STATUS: CODE STATUS discussed in detail again after last night events with patient and daughter at bedside. Patient states she would not want mechanical ventilation but is okay with short course of CPR or defibrillation if needed. CODE STATUS changed to limited resuscitation. Speech and swallow evaluation at bedside. After that can start patient on soft mechanical diet if able to tolerate. Protonix OPD prophylaxis. Lovenox 40 mg subcu daily for now. 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
[2020-11-20 13:03] LABS: Anion Gap 13.8 (5-19); Blood Urea Nitrogen 10 mg/dL (8-23); Calcium 8.8 mg/dL (8.5-10.5); Carbon Dioxide 32 mmol/L (22-29); Chloride 98 mmol/L (98-107); Glucose 151 mg/dL (65-115); Magnesium 1.6 mg/dL (1.7-2.3); Osmolality Calculated 292 mOsm/kg (285-295); Potassium 3.8 mmol/L (3.5-5.1); Sodium 140 mmol/L (136-145)
[2020-11-20 13:23] LABS: Vancomycin Trough 31.7 ug/mL (10-15)
[2020-11-20 14:21] LABS: Coronavirus Test Green County Not Detected
[2020-11-20 15:49] LABS: Glucose Point of Care 153 mg/dL (70-110)
[2020-11-20] MEDS: losartan 50 mg Tablet PO (16:37)
[2020-11-20 17:47] LABS: Glucose Point of Care 150 mg/dL (70-110)
--- NOTE | 2020-11-20 17:50 | USCV_ITS ---
Lauren Jose Age: 75 Gender: F : 1945 Exam Date: 11/20/2020 06:20 Ordering Phys: Riky Angeles MD Technologist: Nazia Waterman [place] [facility] [place]ication: EVAL FOR DVT, BLE SWELLING HISTORY: Lower extremity swelling. PROCEDURES: Venous duplex imaging was performed in bilateral lower extremities. The following venous structures were evaluated: common femoral vein, profunda vein, proximal portion of the greater saphenous vein, superficial femoral vein, and the popliteal vein. In addition, the posterior tibial and peroneal trunk were evaluated. Serial compression, augmentation maneuvers, and spectral Doppler flow evaluation were performed. FINDINGS: Examination was technically limited due to body habitus. No evidence of DVT seen in any vessel visualized at this time. CONCLUSIONS No evidence of right lower extremity DVT. No evidence of left lower extremity DVT. Technically difficult exam Guanakito Goel MD (Electronically Signed) Final Date: 20 November 2020 17:30 S
--- NOTE | 2020-11-20 17:51 | PC.NURSE ---
Performed bedside swallow on patient. Patient is able to swallow thin liquids through a straw without difficulty or choking. Patient was also able to swallow pill without choking or difficulty. Notified Dr. Angeles.
[2020-11-20 18:36] LABS: Glucose Point of Care 175 mg/dL (70-110)
--- NOTE | 2020-11-20 19:13 | PM.CONSULT ---
Providers/Reason For Consult Consulting Physican/Specialty*: Cardiology Reason for Consult*: Arrhythmia life-threatening Attending Physician: Riky Angeles MD Primary Care Provider: Nazia Jha History of Present Illness History of Present Illness Lauren Jose is a 75 year old female past medical history significant for severely depressed LV function thought to be secondary to nonischemic cardiomyopathy who carries significant history of behavioral disorder on multiple pain and antidepressant medicine was admitted with decompensated systolic heart failure. She was being diuresed had episodes of torsade requiring CPR ROSC was achieved. It is the reason we have been asked to assist in her care. When I saw the patient she was laying in the bed. She is not a good historian. She admits to worsening of shortness of breath PND orthopnea despite of titration of medicines to the point that she got admitted to the hospital. She denies any prior episodes of palpitation pounding racing of the heart presyncope or syncope. Review of Systems General: Reports: 10 or more systems reviewed and unremarkable except in HPI and below Const: Denies: fever(s), chills, body aches, change in appetite, change in weight, malaise, night sweats, diaphoresis, change in sleep pattern, daytime sleepiness or snoring Eyes: Denies: change in vision, blurry vision, photophobia, eye discomfort or eye discharge ENMT: Denies: throat pain, enlarged tonsils, hoarseness, mouth pain, oral sores, dry mouth, ear or mastoid pain, tinnitus, nasal discharge, nasal congestion or post nasal drip Card: Denies: chest pain, palpitations, irregular heart rhythm, edema, swelling of feet/ankles, lightheadedness, syncope, pre-syncope, dyspnea on exertion, orthopnea, leg pain with exertion or acrocyanosis Resp: Denies: dyspnea, productive cough, non-productive cough, wheezing, stridor, pain on inspiration, change in phlegm color, hemoptysis or chest congestion GI: Denies: abdominal pain, nausea, vomiting, hematemesis, coffee ground emesis, dysphagia, heartburn, diarrhea, constipation, bloating, GI cramping, change in bowel habits, pain on defecation, hematochezia or melena : Denies: flank pain, difficulty voiding, dysuria, urinary frequency, urinary urgency, urinary hesitancy, nocturia or hematuria Musc: Denies: neck pain, back pain, extremity pain, joint pain, joint swelling, joint redness, joint stiffness or limited range of motion Skin/Breast: Denies: rash or pruritus Neuro: Denies: headache(s), numbness in extremities, weakness in extremities, sensory changes, lack of coordination, difficulty walking, frequent falls, dizziness, vertigo, confusion, Slurred speech present, difficulty communicating thoughts or seizure-like activity Psych: Denies: anxiety, depression, mood swings, panic attacks, hopelessness or irritability Endo: Denies: polyuria, polydipsia, tired all the time, cold intolerance, excessive sweating, flushing or heat intolerance Lavelle/Lymph: Denies: easy bruising or easy bleeding All/Imm: Denies: tongue swelling, facial swelling or acute wheezing Meds/Allergies Home Medications and Allergies Home Medications Medication Instructions Recorded Confirmed Last Taken Type atorvastatin 20 mg tablet 20 mg PO DAILY@79909/30/19 11/19/20 10/23/20 08:00 History clopidogrel 75 mg tablet 75 mg PO DAILY@09/30/19 11/19/20 10/23/20 08:00 History trazodone 150 mg tablet 150 mg PO BEDTIME@1999 PRN tab 09/30/19 11/19/20 10/23/20 08:00 History buspirone 15 mg PO BID@03/19/20 11/19/20 10/23/20 08:00 History duloxetine 60 mg PO DAILY@79903/19/20 11/19/20 08/22/20 History esomeprazole magnesium 40 mg PO DAILY@79903/19/20 11/19/20 10/23/20 08:00 History albuterol sulfate [ProAir HFA] 2 puff INHALATION Q6H PRN 06/11/20 11/19/20 10/23/20 08:00 History metformin 1,000 mg PO BID@06/11/20 11/19/20 10/23/20 08:00 History ondansetron HCl [Zofran] 4 mg PO Q6H PRN #20 tab 06/11/20 11/19/20 10/23/20 08:00 Rx Anoro Ellipta 1 inh INHALATION BID@08,07/23/20 11/19/20 10/23/20 08:00 History pregabalin [Lyrica] 100 mg PO TID@08,,07/23/20 11/19/20 10/23/20 08:00 History acetaminophen [Tylenol] 325 - 650 mg PO Q6H PRN 08/22/20 11/19/20 10/23/20 08:00 History metolazone 2.5 mg PO DAILY@08 08/22/20 11/19/20 10/23/20 08:00 History carvedilol [Coreg] 3.125 mg PO Q12H 11/19/20 11/19/20 Unknown History hydroxyzine HCl 25 mg PO TID PRN 11/19/20 11/19/20 Unknown History losartan 50 mg PO DAILY@0800 11/19/20 11/19/20 Unknown History pantoprazole 40 mg PO DAILY@0800 11/19/20 11/19/20 Unknown History sitagliptin [Januvia] 50 mg PO DAILY@0800 11/19/20 11/19/20 Unknown History sucralfate 1 g PO BID@0800,199911/19/20 11/19/20 Unknown History Allergies Allergy/AdvReac Type Severity Reaction Status Date / Time No Known Allergies Allergy Verified 11/10/20 10:48 Current Medications Current Medications Generic Name Dose Route Start Last Admin Trade Name Freq PRN Reason Stop Dose Admin Albuterol/Ipratropium 3 ml 11/19/20 21:00 11/20/20 14:53 Ipratropium-Albuterol 3 Ml Neb INHALATION 3 ml Q6H.RESPIRATORY MAYCO Administration Atorvastatin Calcium 20 mg 11/20/20 08:00 11/20/20 08:27 Atorvastatin 40 Mg Tablet PO 20 mg DAILY@0800 MAYCO Administration Budesonide 0.5 mg 11/19/20 20:51 11/20/20 08:41 Budesonide 0.5 Mg/2 Ml Neb INHALATION 0.5 mg BID.RESPIRATORY MAYCO Administration Buspirone HCl 15 mg 11/20/20 08:00 11/20/20 12:27 Buspirone 10 Mg Tablet PO Not Given BID@08,20 MAYCO Carvedilol 3.125 mg 11/19/20 22:00 11/19/20 22:02 Carvedilol 3.125 Mg Tablet PO 3.125 mg Q12H MAYCO Administration Clopidogrel Bisulfate 75 mg 11/20/20 08:00 11/20/20 08:27 Clopidogrel 75 Mg Tablet PO 75 mg DAILY@08 [facility] Administration Duloxetine HCl 60 mg 11/20/20 08:00 11/20/20 12:27 Duloxetine 60 Mg Capsule PO Not Given DAILY@0800 [facility] Enoxaparin Sodium 40 mg 11/19/20 22:00 11/19/20 22:02 Enoxaparin 40 Mg/0.4 Ml Syringe SUBCUT 40 mg Q24H [facility] Administration Azithromycin 500 mg/ Sodium 250 mls @ 250 mls/hr 11/20/20 09:00 11/20/20 11:08 Chloride IV Infused DAILY [facility] Infusion Protocol Piperacillin Sod/Tazobactam 50 mls @ 12.5 mls/hr 11/20/20 00:00 11/20/20 16:32 Sod 3.375 gm/ Sodium Chloride IV 12.5 mls/hr Q8H [facility] Administration Protocol Insulin Aspart 0 unit 11/20/20 12:46 11/20/20 17:51 Insulin Aspart 100 Unit/1 Ml SUBCUT Not Given Q6H [facility] Protocol Losartan Potassium 50 mg 11/20/20 08:00 11/20/20 12:27 Losartan 50 Mg Tablet PO Not Given DAILY@0800 [facility] Methylprednisolone Sodium Succinate 40 mg 11/20/20 17:00 11/20/20 16:38 Methylprednisolone Sod Succ 40 Mg/Ml Inj IVP 40 mg Q12H [facility] Administration Morphine Sulfate 2 mg 11/20/20 04:41 11/20/20 10:05 Morphine 4 Mg/Ml Sdv 1 Ml IVP 2 mg Q2H PRN Administration SEVERE [facility]IN Pantoprazole Sodium 40 mg 11/20/20 08:00 11/20/20 08:[address] 40 Mg Tablet PO 40 mg DAILY@0800 [facility] Administration Pregabalin 100 mg 11/20/20 08:00 11/20/20 15:16 Pregabalin 100 Mg Capsule PO Not Given TID@ [facility] Sucralfate 1 gm 11/19/20 22:00 11/20/20 08:27 Sucralfate 1 Gm Tablet PO 1 gm BID@0800,1999 [facility] Administration PFSH Acute PFSH: Medical History (Updated 11/20/20 @ 22:47 by Stacey Muñoz MD) Acute HFrEF (heart failure with reduced ejection fraction) Blood in stool Cardiomyopathy Carpal tunnel syndrome on both sides Chronic radicular low back pain COPD (chronic obstructive pulmonary disease) COPD (chronic obstructive pulmonary disease) CVA (cerebral vascular accident) Depression with anxiety Diabetes Diabetes Encounter for long-term use of opiate analgesic Gastritis GERD (gastroesophageal reflux disease) HFrEF (heart failure with reduced ejection fraction) History of cerebrovascular accident History of CHF (congestive heart failure) History of GI bleed Hypertension Hypertension Low back pain Non-ST elevation [place] (NSTEMI) Opioid contract exists Smokeless tobacco use Stress-induced cardiomyopathy Takotsubo cardiomyopathy Surgical History (Updated 11/19/20 @ 18:06 by Riky Angeles MD) H/O knee surgery History of colonoscopy (~11/2020) History of esophagogastroduodenoscopy (EGD) (~11/2020) History of knee replacement History of lumbar surgery Also history of spinal cord stimulator, currently not functioning History of shoulder surgery Family History Other CAD (coronary artery disease) Hypertension Stroke Denies family history of Anesthesia complication Bleeding disorder Social History Smoking and tobacco status: current every day smoker smokeless tobacco Smokeless tobacco details: also smoked cigarrettes quit 10 years. 60 pack years Alcohol intake: never Dietary Habits: Current diet type/program: regular Caffeine: Yes Vitals/I&O/Wt Last Vital Signs Temp 98.4 F 11/20/20 16:00 Pulse 68 11/20/20 17:00 Resp 17 11/20/20 17:00 BP 145/81 11/20/20 17:00 Pulse Ox 100 11/20/20 17:00 11/20/20 11/20/20 11/20/20 06:59 14:59 22:59 Intake Total 402 / 502 1100 / 1100 560 / 1660 Output Total 1749 / 0 1600 / 1600 Balance -1348 / -1548 1100 / 1100 -1040 / 60 Weight last 48 hrs Weight 255 lb 12.379 oz Weight 255 lb 12 oz Physical Exam Narrative: EXAM NARRATIVE: GENERAL: Patient is lethargic but oriented not in distress NECK: No jugular vein distension. HEENT: No cyanosis. No icterus. No pallor. HEART: Regular S1 and S2. No murmur, rub or gallop. LUNGS: Basal inspiratory crackles bilaterally. ABDOMEN: Not examined CENTRAL NERVOUS SYSTEM: Grossly nonfocal. EXTREMITIES: Lower extremities with 1+ edema bilaterally. Urinary Catheter Management^: Dumont: Cath Placed During This Visit: yes Reason for Continuing Indwelling Catheter: Accurate Measurement of Urinary Output in Critically Ill Patients Urinary Catheter Date of Insertion: 11/19/20 Urinary Catheter Time of Insertion: 14:59 Data Micro: Micro: Microbiology 11/19/20 14:25 Blood Culture - Pr eliminary Blood NEGATIVE TO ISMA E 11/20/20 12:32 Blood Culture - Pr eliminary Blood SPECIMEN COLLEC NIRMAL 11/20/20 12:30 Blood Culture - Pr eliminary Blood SPECIMEN COLLEC NIRMAL 11/19/20 21:30 MRSA Culture - Fin al Nose 11/19/20 14:20 Blood Culture - Pr eliminary Blood 11/19/20 13:51 Legionella Urinary Antigen - Final Urine Catheterize d A&P Assessment and plan (1) Torsades de pointes: Patient had episode of sustained torsade requiring 2 rounds of CPR. At this point we will discontinue all antidepressant and antipsychotic medicines. Magnesium was replenished with a goal of magnesium more than 2 and potassium around 4.0. Will ask for baseline twelve-lead EKG to assess QT QTC. Will titrate carvedilol ARB. Add aldosterone to the regimen. Will repeat echocardiogram to assess LV function. If remains below 35 and as patient had documented episodes of torsade we recommend proceeding with ICD placement. Status: Acute (2) Cardiomyopathy: As above titrate carvedilol, ARB, add aldosterone. Continue diuresing. Patient has 1600 after IV diuretics. Status: Acute Qualifiers: Cardiomyopathy type: dilated Qualified Code(s): I42.0 - Dilated cardiomyopathy (3) Hypertension: Well-controlled continue medicine Status: Acute Qualifiers: Hypertension type: essential hypertension Qualified Code(s): I10 - Essential (primary) hypertension Consult Attestations Medical Necessity Statement: Patient require continuation hospitalization for above defined care. 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
--- NOTE | 2020-11-20 19:35 | PC.NURSE ---
Called Dr. Muñoz about stopping some of the patient's home medications. Dr. Muñoz wishes to stop all psych medications et give ativan ever [address] Will place orders.
[2020-11-20] MEDS: FUROsemide 10 mg/mL SDV 10mL 80 MG IVP (21:37)
[2020-11-20] MEDS: enoxaparin 40 mg/0.4 mL Syringe SUBCUT (21:38)
[2020-11-20 22:28] LABS: Glucose Point of Care 183 mg/dL (70-110)
[2020-11-21] VITALS (75 sets, daily range): BP systolic 116–201; BP diastolic 53–112; PULSE 51–91; RESP 10–25; TEMP 36.4–36.9; O2SAT 80–100
[2020-11-21] MEDS: piperacillin-tazobactam 3.375 GM in sodium chloride 0.9% (plus) 50 ML IV ×4 (00:18→23:29)
[2020-11-21] MEDS: morphine 4 mg/mL SDV 1 mL 2 MG IVP ×3 (01:35→22:47)
--- NOTE | 2020-11-21 01:54 | PC.NURSE ---
New Orders; New T/O for PRN ricardo Vega MD.
[2020-11-21] MEDS: diphenhydrAMINE 25 mg Capsule PO (02:16)
[2020-11-21] MEDS: ipratropium-albuterol 3 mL Neb INHALATION ×4 (02:37→20:44)
[2020-11-21 04:16] LABS: Basophils % 0.3 %; Eosinophils % 0.1 %; Hematocrit 32.7 % (37.0-47.0); Hemoglobin 9.6 g/dL (11.5-15.3); Lymphocytes # 0.7 10^3/uL (0.8-4.8); Lymphocytes % 10.7 %; Mean Corpuscular HGB Conc 29.4 g/dL (30.0-36.0); Mean Corpuscular Hemoglobin 24.9 pg (28.0-34.0); Mean Corpuscular Volume 84.9 fL (81-99); Mean Platelet Volume 10.5 fL (7.4-10.4); Monocytes # 0.5 10^3/uL (0.2-0.9); Monocytes % 7.6 %; Neutrophils # 5.55 10^3/uL (1.8-7.7); Nucleated Red Blood Cells % 0 %; Platelet Count 303 10^3/cmm (130-400); Red Blood Count 3.85 10^6/uL (4.1-5.3); Red Cell Distribution Width 15.4 % (12.1-15.1); White Blood Count 6.9 10^3/uL (4.0-10.0)
[2020-11-21 04:33] LABS: Magnesium 1.8 mg/dL (1.7-2.3)
[2020-11-21 04:36] LABS: Alanine Aminotransferase 9 U/L (0-33); Albumin Level 3.2 g/dL (3.5-5.2); Alkaline Phosphatase 72 IU/L (35-105); Anion Gap 9.8 (5-19); Aspartate Amino Transferase 9 U/L (0-32); Blood Urea Nitrogen 14 mg/dL (8-23); Calcium 8.4 mg/dL (8.5-10.5); Carbon Dioxide 37 mmol/L (22-29); Chloride 98 mmol/L (98-107); Globulin 2.3 g/dL (1.3-4.6); Glucose 140 mg/dL (65-115); Osmolality Calculated 295 mOsm/kg (285-295); Potassium 3.8 mmol/L (3.5-5.1); Sodium 141 mmol/L (136-145); Total Bilirubin 0.7 mg/dL (0.15-1.2); Total Protein 5.5 g/dL (6.6-8.7)
[2020-11-21 06:34] LABS: Glucose Point of Care 135 mg/dL (70-110)
[2020-11-21] MEDS: budesonide 0.5 mg/2 mL Neb INHALATION ×2 (08:09→20:44)
[2020-11-21] MEDS: atorvastatin 40 mg Tablet 20 MG PO (08:26)
[2020-11-21] MEDS: sucralfate 1 gm Tablet PO ×2 (08:26→20:08)
[2020-11-21] MEDS: clopidogrel 75 mg Tablet PO (08:26)
[2020-11-21] MEDS: losartan 50 mg Tablet PO (08:27)
[2020-11-21] MEDS: pantoprazole DR 40 mg Tablet PO (08:31)
[2020-11-21] MEDS: azithromycin 500 MG in sodium chloride 0.9% 250 ML 250 MG IV (08:33)
[2020-11-21] MEDS: FUROsemide 10 mg/mL SDV 10mL 80 MG IVP ×2 (09:01→22:36)
--- NOTE | 2020-11-21 09:35 | PC.CHAP ---
Pastoral Care Encounter/Spiritual Assessment Type of Contact [] Declined design engineer visit [] Patient/Family/Request visit [] Outpatient visit [] Follow-up visit [] Physician referral [] Code/Alert [x] Routine visit [] Staff referral [] Actively dying [] Patient sleeping [] Family support [] [] Out of room [] Palliative care [] [x] Receiving care in room [] Pre-surgical visit [] Trauma [] Long length of stay [x] ICU visit [] Other: Relational/Emotional Strength [] Patient feels connected with others/family/visitors/staff [] Distress [] Loneliness/isolation [] Abandonment Spirituality of Patient [] Person of Maria E [] Attends Rastafarian of their Maria E [] Believes in Prayer [] Reads Bible or Taoism materials [] There are Spiritual issues to be addressed Radio Program Checker Interventions [x] Prayer [] Active listening [] Non-anxious presence [] Spiritual/emotional support [] Crisis/trauma care [] Spiritual counseling [] Bereavement support [] Provided bereavement packet [] Provided Bible/devotional materials [] Provided toy/stuffed animal, coloring book to patient or family member [] Provided Communion [] Anointing/[place] [] Salvation [x] Completed spiritual assessment [] Other: Impact on Illness or Injury [] Angry [] Fearful [] Anxious [] Often cries [] Exhaustion [] Unable to work [] Unable to attend religion [] Unable to walk/stand [] Unable to read [] Unable to drive [] Unable to eat/drink [] Unable to sleep [] Unable to be with family [] Patient intubated [] Other: Summary Time spent with patient
[2020-11-21] MEDS: metOLazone 5 MG Tablet 2.5 MG PO (10:00)
[2020-11-21] MEDS: magnesium sulfate premix 2 GM/50 ML PIGGYBACK IV (10:00)
[2020-11-21 13:03] LABS: Glucose Point of Care 207 mg/dL (70-110)
--- NOTE | 2020-11-21 17:59 | PM.PN ---
Subjective Subjective: Interval history: No acute events overnight. Patient slept well on BiPAP. On examination she was on 10 L nasal cannula high flow during my examination we turned down to 5 L and patient continued to saturate at 96%. Patient is a lot more awake. Denies any nausea, vomiting, headache, diarrhea. Labs and vitals appreciated. Vitals/I&O/Wt Last Vital Signs Temp 97.8 F 11/21/20 12:00 Pulse 77 11/21/20 14:42 Resp 16 11/21/20 14:35 BP 143/68 11/21/20 12:00 Pulse Ox 94 11/21/20 14:35 11/21/20 11/21/20 11/21/20 06:59 14:59 22:59 Intake Total 175 / 2415 650 / 650 Output Total 250 / 2050 350 / 350 Balance -75 / 365 300 / 300 Weight last 48 hrs Weight 116.46 kg Weight 116.017 kg Weight 116.006 kg Physical Exam Narrative: EXAM NARRATIVE: General: No acute distress, AO x3, HEENT: PERRLA, pupils bilaterally equal and reactive Chest: Normal vesicular breath sounds, fine crackles bilaterally up to mid lung, right more than left, equal good air entry bilaterally CVS: S1-S2 regular, soft pansystolic murmur at apex, no tachycardia, no gallops, no rubs Abdomen: Soft, distended, nontender, no organomegaly, bowel sounds present Neuro: No focal deficits, no facial deformity, AO x3, power 5/5 in all limbs Urinary Catheter Management^: Dumont: Cath Placed During This Visit: yes Reason for Continuing Indwelling Catheter: Accurate Measurement of Urinary Output in Critically Ill Patients Urinary Catheter Date of Insertion: 11/19/20 Urinary Catheter Time of Insertion: 14:59 Data : 11/22/20 03:40 11/22/20 03:38 Micro: Microbiology 11/20/20 17:00 MRSA Culture - Final Nose 11/20/20 12:30 Blood Culture - Preliminary Blood NEGATIVE TO DATE 11/20/20 12:32 Blood Culture - Preliminary Blood NEGATIVE TO DATE 11/19/20 14:20 Blood Culture - Preliminary Blood Staphylococcus sp coag neg 11/19/20 14:25 Blood Culture - Preliminary Blood NEGATIVE TO DATE A&P Assessment and plan (1) Torsades de pointes: Status: Acute (2) Shortness of breath: Status: Acute (3) Acute HFrEF (heart failure with reduced ejection fraction): Status: Acute (4) Takotsubo cardiomyopathy: Status: Acute (5) COPD (chronic obstructive pulmonary disease): Status: Acute (6) Diarrhea: Status: Acute (7) Diabetes: Status: Acute (8) Hypertension: Status: Acute Qualifiers: Hypertension type: essential hypertension Qualified Code(s): I10 - Essential (primary) hypertension Additional A&P Information 72-year-old female with past medical history of Takotsubo cardiomyopathy with EF 25 to 30%, COPD on chronic oxygen and BiPAP at night presents with difficulty in breathing getting worse over a couple of weeks, swelling in her lower limbs found to be hypercapnic and placed on BiPAP in the ER. Torsades: Could be secondary to cardiac stress given congestive heart failure. Monitor magnesium, calcium, phosphorus levels. Keep magnesium levels around 3, potassium around 4. Will replete magnesium and potassium accordingly and repeat levels in afternoon. QTC within normal notes. We will consult cardiology for further recommendations And possible ICD placement Medical reconciliation done for QTC prolonging drugs. On review trazodone, BuSpar, Cymbalta does not cause QTC prolonging while BuSpar actually causes QT shortening. We will continue the medications on lower dose. Shortness of breath: Most likely secondary to exacerbation of congestive heart failure with underlying COPD. CT chest results appreciated. Procalcitonin negative on admission. CT chest ruled out pulmonary embolism and active consolidation. Patient has remained afebrile, no white count, no fevers so we will stop the antibiotics for now continue to monitor. COVID-19 PCR came back negative. Remove isolation precautions. Continue Lasix 80 mg IV twice daily for now. Urine output still not appropriate so we will start patient on home dose of metolazone 2.5 mg oral daily. Monitor kidney functions. Target net -1.5 to 2 L in next 24 hours. Fluid restriction up to 1500 cc. Continue Dumont catheterization. Continue with Coreg and losartan. Will consider adding Aldactone if creatinine function remained stable. Echocardiogram done results awaited. Daily weights. BiPAP ventilation overnight.. DuoNebs every 6 hours, budesonide twice daily. Wean Solu-Medrol 40 mg every 12 hours for now. Type 2 diabetes mellitus: Hold off on any oral hypoglycemics. Insulin sliding scale every 6 hours at mild protocol. Hypertension: Goal blood pressure less than 140/90 mmHg. Antihypertensives as above. Will monitor and change medications accordingly. Diarrhea: Has had multiple extensive work-up in the past including EGD, colonoscopy, infectious work-up. Check C. difficile. Cannot rule out secondary to chronic Metformin use versus congestive gastropathy. CODE STATUS: CODE STATUS discussed in detail again after last night events with patient and daughter at bedside. Patient states she would not want mechanical ventilation but is okay with short course of CPR or defibrillation if needed. CODE STATUS changed to limited resuscitation. Soft mechanical diet Protonix OPD prophylaxis. Lovenox 40 mg subcu daily for now. PT OT evaluation. Out of bed to chair. Attestations Medical Necessity Statement*: Requires further hospitalization for management of congestive heart failure, recent torsade de pointes Time Spent in Patient Care: Greater than 35 minutes (>than 50% of time spent in counselling and/or direct pt care on unit). Coding Level of Care Code Acute Vascular Surgery Physician for [facility] Fwd Diagnoses Torsades de pointes I47.2 Shortness of breath R06.02 Acute HFrEF (heart failure with reduced ejection fraction) I50.21 Takotsubo cardiomyopathy I51.81 COPD (chronic obstructive pulmonary disease) J44.9 Diarrhea R19.7 Diabetes E11.9 Hypertension I10 Hypertension type: essential hypertension
--- NOTE | 2020-11-21 18:37 | PM.PN ---
Subjective Subjective: Interval history: No more arrhythmia. Shortness of breath is better still has crackling in the chest. Vitals/I&O/Wt Last Vital Signs Temp 97.8 F 11/21/20 12:00 Pulse 77 11/21/20 14:42 Resp 16 11/21/20 14:35 BP 143/68 11/21/20 12:00 Pulse Ox 94 11/21/20 14:35 11/21/20 11/21/20 11/21/20 06:59 14:59 22:59 Intake Total 175 / 2415 650 / 650 Output Total 250 / 2050 350 / 350 Balance -75 / 365 300 / 300 Weight last 48 hrs Weight 256 lb 12.005 oz Weight 255 lb 12.379 oz Weight 255 lb 12 oz Physical Exam Narrative: EXAM NARRATIVE: GENERAL: Patient is lethargic but oriented not in distress NECK: No jugular vein distension. HEENT: No cyanosis. No icterus. No pallor. HEART: Regular S1 and S2. No murmur, rub or gallop. LUNGS: Basal inspiratory crackles bilaterally. ABDOMEN: Not examined CENTRAL NERVOUS SYSTEM: Grossly nonfocal. EXTREMITIES: Lower extremities without edema bilaterally. Urinary Catheter Management^: Dumont: Cath Placed During This Visit: yes Reason for Continuing Indwelling Catheter: Accurate Measurement of Urinary Output in Critically Ill Patients Urinary Catheter Date of Insertion: 11/19/20 Urinary Catheter Time of Insertion: 14:59 Data : 11/21/20 03:26 11/21/20 03:26 Micro: Microbiology 11/20/20 17:00 MRSA Culture - Final Nose 11/20/20 12:30 Blood Culture - Preliminary Blood NEGATIVE TO DATE 11/20/20 12:32 Blood Culture - Preliminary Blood NEGATIVE TO DATE 11/19/20 14:20 Blood Culture - Preliminary Blood Staphylococcus sp coag neg 11/19/20 14:25 Blood Culture - Preliminary Blood NEGATIVE TO DATE A&P Assessment and plan (1) Torsades de pointes: Patient had episode of sustained torsade requiring 2 rounds of CPR. At this point we will discontinue all antidepressant and antipsychotic medicines. Magnesium was replenished with a goal of magnesium more than 2 and potassium around 4.0. Will ask for baseline twelve-lead EKG to assess QT QTC. Will titrate carvedilol ARB. Add aldosterone to the regimen. Will repeat echocardiogram to assess LV function. If remains below 35 and as patient had documented episodes of torsade we recommend proceeding with ICD placement. On today's visit patient stable doing fine from cardiovascular perspective. Continue diuresing. Continue optimization of electrolyte balance. Left ventricular ejection fraction remains at 38% which has not changed from the prior exam by recent echo. Patient may will be benefited with ICD placement. Will refer her to Dr. Bhatia before discharge Status: Acute (2) Cardiomyopathy: Consider adding metolazone 2.5 mg twice daily. Continue to diurese Status: Acute Qualifiers: Cardiomyopathy type: dilated Qualified Code(s): I42.0 - Dilated cardiomyopathy (3) Hypertension: Well-controlled continue medicine Status: Acute Qualifiers: Hypertension type: essential hypertension Qualified Code(s): I10 - Essential (primary) hypertension Attestations Medical Necessity Statement*: Patient require continued hospitalization for above defined care. 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
[2020-11-21 18:47] LABS: Glucose Point of Care 131 mg/dL (70-110)
[2020-11-21 18:52] LABS: Glucose Point of Care 165 mg/dL (70-110)
[2020-11-21] MEDS: enoxaparin 40 mg/0.4 mL Syringe SUBCUT (22:35)
[2020-11-21] MEDS: LORazepam 2 mg/mL INJ 1 mL 1 MG IVP (22:48)
[2020-11-22] VITALS (48 sets, daily range): BP systolic 134–209; BP diastolic 64–136; PULSE 54–98; RESP 13–25; TEMP 36.9–37.2; O2SAT 93–99; BMI 50.1
[2020-11-22 00:41] LABS: Glucose Point of Care 190 mg/dL (70-110)
[2020-11-22] MEDS: ipratropium-albuterol 3 mL Neb INHALATION ×4 (02:46→20:25)
[2020-11-22 04:06] LABS: Basophils % 0.1 %; Eosinophils % 0.1 %; Hematocrit 32.8 % (37.0-47.0); Hemoglobin 9.6 g/dL (11.5-15.3); Lymphocytes # 0.7 10^3/uL (0.8-4.8); Lymphocytes % 8.2 %; Mean Corpuscular HGB Conc 29.3 g/dL (30.0-36.0); Mean Corpuscular Hemoglobin 24.6 pg (28.0-34.0); Mean Corpuscular Volume 84.1 fL (81-99); Mean Platelet Volume 10.5 fL (7.4-10.4); Monocytes # 0.5 10^3/uL (0.2-0.9); Monocytes % 5.8 %; Neutrophils # 7.73 10^3/uL (1.8-7.7); Neutrophils % 85.5 %; Nucleated Red Blood Cells % 0 %; Platelet Count 308 10^3/cmm (130-400); Red Cell Distribution Width 15.5 % (12.1-15.1)
[2020-11-22 04:24] LABS: Alanine Aminotransferase 9 U/L (0-33); Albumin Level 3.5 g/dL (3.5-5.2); Alkaline Phosphatase 73 IU/L (35-105); Blood Urea Nitrogen 17 mg/dL (8-23); Calcium 8.5 mg/dL (8.5-10.5); Carbon Dioxide 40 mmol/L (22-29); Chloride 93 mmol/L (98-107); Globulin 2.4 g/dL (1.3-4.6); Glucose 176 mg/dL (65-115); Osmolality Calculated 292 mOsm/kg (285-295); Sodium 138 mmol/L (136-145); Total Bilirubin 0.7 mg/dL (0.15-1.2); Total Protein 5.9 g/dL (6.6-8.7)
[2020-11-22 04:25] LABS: Anion Gap 8.7 (5-19); Aspartate Amino Transferase 9 U/L (0-32); Potassium 3.7 mmol/L (3.5-5.1)
--- NOTE | 2020-11-22 06:00 | XR_ITS ---
WS: [id number] Portable AP semiupright chest, 11/22/2020 Clinical Data: chf Comparison: Portable chest, 11/20/2020. Findings: The pulmonary vascularity remains increased but it has slightly cleared.. The heart is enla rged. There are small bilateral effusions. Epidural stimulator leads are overlying the lower thoracic space. Monitor leads are on the chest wall. XR/XR chest 1V portable [id number] Impression: Slight improvement in congestive heart failure.
[2020-11-22 07:29] LABS: Glucose Point of Care 176 mg/dL (70-110)
[2020-11-22] MEDS: budesonide 0.5 mg/2 mL Neb INHALATION ×2 (08:44→20:25)
--- NOTE | 2020-11-22 08:57 | PC.CHAP ---
Pastoral Care Encounter/Spiritual Assessment Type of Contact [] Declined it professional visit [] Patient/Family/Request visit [] Outpatient visit [] Follow-up visit [] Physician referral [] Code/Alert [x] Routine visit [] Staff referral [] Actively dying [] Patient sleeping [] Family support [] [] Out of room [] Palliative care [] [] Receiving care in room [] Pre-surgical visit [] Trauma [] Long length of stay [x] ICU visit [x] Other: ventilator Relational/Emotional Strength [] Patient feels connected with others/family/visitors/staff [] Distress [] Loneliness/isolation [] Abandonment Spirituality of Patient [] Person of Maria E [] Attends Pentecostalism of their Maria E [] Believes in Prayer [] Reads Bible or Samaritan materials [] There are Spiritual issues to be addressed Beamer Helper Interventions [x] Prayer [] Active listening [] Non-anxious presence [] Spiritual/emotional support [] Crisis/trauma care [] Spiritual counseling [] Bereavement support [] Provided bereavement packet [] Provided Bible/devotional materials [] Provided toy/stuffed animal, coloring book to patient or family member [] Provided Communion [] Anointing/[place] [] Salvation [x] Completed spiritual assessment [] Other: Impact on Illness or Injury [] Angry [] Fearful [] Anxious [] Often cries [] Exhaustion [] Unable to work [] Unable to attend taoism [] Unable to walk/stand [] Unable to read [] Unable to drive [] Unable to eat/drink [] Unable to sleep [] Unable to be with family [] Patient intubated [] Other: Summary Time spent with patient
[2020-11-22] MEDS: metOLazone 5 MG Tablet 2.5 MG PO (09:41)
[2020-11-22] MEDS: losartan 50 mg Tablet 100 MG PO (09:41)
[2020-11-22] MEDS: clopidogrel 75 mg Tablet PO (09:42)
[2020-11-22] MEDS: pantoprazole DR 40 mg Tablet PO (09:42)
[2020-11-22] MEDS: azithromycin 500 MG in sodium chloride 0.9% 250 ML 250 MG IV (09:42)
[2020-11-22] MEDS: atorvastatin 40 mg Tablet 20 MG PO (09:43)
[2020-11-22] MEDS: FUROsemide 10 mg/mL SDV 10mL 80 MG IVP ×2 (09:43→22:55)
[2020-11-22] MEDS: carvedilol 3.125 mg Tablet PO ×2 (09:45→21:35)
[2020-11-22] MEDS: sucralfate 1 gm Tablet PO ×2 (09:45→21:34)
--- NOTE | 2020-11-22 10:20 | P.PN_ITS ---
Subjective Subjective: Interval history: No acute events overnight. On examination patient was on BiPAP ventilation. During examination patient was taken on BiPAP and put on 2 L oxygen nasal cannula saturating 96%. Denies any nausea, vomiting, headache. Has had a better night yesterday. Good urine response to metolazone. Overall has been around 4 L net negative. Vitals/I&O/Wt Last Vital Signs Temp 98.4 F 11/22/20 04:41 Pulse 84 11/22/20 10:00 Resp 23 H 11/22/20 10:00 BP 179/79 11/22/20 10:00 Pulse Ox 94 11/22/20 10:00 11/21/20 11/22/20 11/22/20 22:59 06:59 14:59 Intake Total 325 / 1025 170 / 1195 Output Total 650 / 1000 3150 / 4150 0 / 0 Balance -325 / 25 -2980 / -2955 0 / 0 Weight last 48 hrs Weight 116.46 kg Weight 116.46 kg Physical Exam Narrative: EXAM NARRATIVE: General: No acute distress, AO x3, 3 L nasal cannula saturating 96%. HEENT: PERRLA, pupils bilaterally equal and reactive Chest: Normal vesicular breath sounds, fine crackles bilaterally up to mid lung, right more than left, equal good air entry bilaterally CVS: S1-S2 regular, soft pansystolic murmur at apex, no tachycardia, no gallops, no rubs Abdomen: Soft, distended, nontender, no organomegaly, bowel sounds present Neuro: No focal deficits, no facial deformity, AO x3, power 5/5 in all limbs Urinary Catheter Management^: Dumont: Cath Placed During This Visit: yes Reason for Continuing Indwelling Catheter: Accurate Measurement of Urinary Output in Critically Ill Patients Urinary Catheter Date of Insertion: 11/19/20 Urinary Catheter Time of Insertion: 14:59 Data : 11/22/20 03:40 11/22/20 03:38 Micro: Microbiology 11/20/20 17:00 MRSA Culture - Final Nose 11/20/20 12:30 Blood Culture - Preliminary Blood NEGATIVE TO DATE 11/20/20 12:32 Blood Culture - Preliminary Blood NEGATIVE TO DATE 11/19/20 14:20 Blood Culture - Preliminary Blood Staphylococcus sp coag neg A&P Assessment and plan (1) Torsades de pointes: Status: Acute (2) Shortness of breath: Status: Acute (3) Acute HFrEF (heart failure with reduced ejection fraction): Status: Acute (4) Takotsubo cardiomyopathy: Status: Acute (5) COPD (chronic obstructive pulmonary disease): Status: Acute (6) Diarrhea: Status: Acute (7) Diabetes: Status: Acute (8) Hypertension: Status: Acute Additional A&P Information 72-year-old female with past medical history of Takotsubo cardiomyopathy with EF 25 to 30%, COPD on chronic oxygen and BiPAP at night presents with difficulty in breathing getting worse over a couple of weeks, swelling in her lower limbs found to be hypercapnic and placed on BiPAP in the ER. Torsades: Could be secondary to cardiac stress given congestive heart failure. Continue to monitor magnesium, calcium. Keep magnesium around 3 with potassium around 4. Medical reconstruction done for QTC prolonging drugs. For now continue with new generation antipsychotic medication at half the dose adjusted do not cause QT prolongation. Appreciate cardiology recommendations. Shortness of breath: Secondary to congestive heart failure. Continue with IV Lasix 80 twice daily, metolazone 2.5 mg daily. Daily weights. Strict input output charting. DuoNebs every 6 hour, budesonide twice daily. Wean Solu-Medrol further to 40 IV daily. We will stop tomorrow if patient continues to do well. Oxygen supplementation keeping saturation around 90% with BiPAP at night as home regimen. Pneumonia, infective pathology has been ruled out. Antibiotics stopped yesterday. Continue to monitor off antibiotics. COVID-19 negative. Echocardiogram results appreciated with EF 38% and grade 2 diastolic dysfunction, moderate aortic stenosis, moderate MR. Continue with home dose of Coreg and losartan. Patient blood pressure mildly elevated. If continues to remain high will uptitrate dose of losartan while monitoring kidney functions. Type 2 diabetes mellitus: Hold off on any oral hypoglycemics. Insulin sliding scale before meals and at bedtime. Hypertension: Goal blood pressure less than 140/90 mmHg. Antihypertensives as above. Will monitor and change medications accordingly. Diarrhea: Has had multiple extensive work-up in the past including EGD, colonoscopy, infectious work-up. Check C. difficile. Cannot rule out secondary to chronic Metformin use versus congestive gastropa thy. CODE STATUS: CODE STATUS discussed in detail again after last night events with patient and daughter at bedside. Patient states she would not want mechanical ventilation but is okay with short course of CPR or defibrillation if needed. CODE STATUS changed to limited resuscitation. Soft mechanical diet. Protonix OPD prophylaxis. Lovenox 40 mg subcu daily for now. Moved to floors. Out of bed to chair. Attestations Medical Necessity Statement*: Requires further hospitalization for management of shortness of breath because of congestive heart failure and recent torsades Time Spent in Patient Care: Greater than 35 minutes (>than 50% of time spent in counselling and/or direct pt care on unit) . Coding Level of Care Code Acute Senior National Account Manager for g Fwd Diagnoses Torsades de pointes I47.2 Shortness of breath R06.02 Acute HFrEF (heart failure with reduced ejection fraction) I50.21 Takotsubo cardiomyopathy I51.81 COPD (chronic obstructive pulmonary disease) J44.9 Diarrhea R19.7 Diabetes E11.9 Hypertension I10
[2020-11-22 11:14] LABS: Glucose Point of Care 224 mg/dL (70-110)
--- NOTE | 2020-11-22 11:53 | PC.SOCIAL ---
IMM Update Pg. 2 of IMM updated and reviewed with patient who verbalized understanding. Copy provided.
[2020-11-22] MEDS: morphine 4 mg/mL SDV 1 mL 2 MG IVP (13:23)
[2020-11-22 17:18] LABS: Glucose Point of Care 128 mg/dL (70-110)
[2020-11-22] MEDS: BuSPIRONE 10 mg Tablet PO (18:06)
--- NOTE | 2020-11-22 20:06 | P.PN_ITS ---
Subjective Subjective: Interval history: Patient continues to improve today denies any complaint heart rate remained stable Vitals/I&O/Wt Last Vital Signs Temp 98.7 F 11/22/20 18:56 Pulse 78 11/22/20 18:56 Resp 18 11/22/20 18:56 BP 163/77 11/22/20 18:56 Pulse Ox 97 11/22/20 18:56 11/22/20 11/22/20 11/22/20 06:59 14:59 22:59 Intake Total 170 / 1195 870 / 870 240 / 1110 Output Total 3150 / 4150 725 / 725 1650 / 2375 Balance -2980 / -2955 145 / 145 -1410 / -1265 Weight last 48 hrs Weight 256 lb 12.005 oz Weight 256 lb 12.005 oz Physical Exam Narrative: EXAM NARRATIVE: GENERAL: Patient is lethargic but oriented not in distress NECK: No jugular vein distension. HEENT: No cyanosis. No icterus. No pallor. HEART: Regular S1 and S2. No murmur, rub or gallop. LUNGS: Basal inspiratory crackles bilaterally. ABDOMEN: Not examined CENTRAL NERVOUS SYSTEM: Grossly nonfocal. EXTREMITIES: Lower extremities without edema bilaterally. Urinary Catheter Management^: Dumont: Cath Placed During This Visit: yes Reason for Continuing Indwelling Catheter: Accurate Measurement of Urinary Output in Critically Ill Patients Urinary Catheter Date of Insertion: 11/19/20 Urinary Catheter Time of Insertion: 14:59 Data : 11/22/20 03:40 11/22/20 03:38 Micro: Microbiology 11/20/20 17:00 MRSA Culture - Final Nose A&P Assessment and plan (1) Torsades de pointes: Patient had episode of sustained torsade requiring 2 rounds of CPR. At this point we will discontinue all antidepressant and antipsychotic medicines. Magnesium was replenished with a goal of magnesium more than 2 and potassium around 4.0. Will ask for baseline twelve-lead EKG to assess QT QTC. Will titrate carvedilol ARB. Add aldosterone to the regimen. Will repeat echocardi ogram to assess LV function. If remains below 35 and as patient had documented episodes of torsade we recommend proceeding with ICD placement. On today's visit patient stable doing fine from cardiovascular perspective. Continue diuresing. Continue optimization of electrolyte balance. Left vent ricular ejection fraction remains at 38% which has not changed from the prior exam by recent echo. Patient may will be benefited with ICD placement. Will refer her to Dr. Bhatia before discharge Stable. Continue current Status: Acute (2) Cardiomyopathy: Continue to diurese. Appear to be still Status: Acute Qualifiers: Cardiomyopathy type: dilated Qualified Code(s): I42.0 - Dilated cardiomyopathy (3) Hypertension: Well-controlled continue medicine Status: Acute Coding Level of Care Code Established Pt Acute Hospital Receptionist for [facility] Fwd Patient Type Established History Detailed Exam Detailed Medical Decision Making Moderate Complexity Diagnoses Torsades de pointes I47.2 Cardiomyopathy I42.0 Cardiomyopathy type: dilated Hypertension I10
--- NOTE | 2020-11-22 20:08 | PC.NURSE ---
Spoke with Dr Dowell and discussed changing insulin order to with meals and at bedtime instead of every 6 hours. Patient's blood sugars within expectations. Received telephone order to change Novolog SS to WM&Bedtime. RBVO
[2020-11-22 20:35] LABS: Glucose Point of Care 187 mg/dL (70-110)
[2020-11-22] MEDS: enoxaparin 40 mg/0.4 mL Syringe SUBCUT (22:56)
[2020-11-23] VITALS (24 sets, daily range): BP systolic 164–189; BP diastolic 85–113; PULSE 60–88; RESP 12–22; TEMP 36.6–36.8; O2SAT 94–99
[2020-11-23] MEDS: ipratropium-albuterol 3 mL Neb INHALATION ×4 (02:32→21:24)
[2020-11-23 04:51] LABS: Basophils % 0.3 %; Eosinophils % 0.2 %; Hematocrit 36.9 % (37.0-47.0); Hemoglobin 10.8 g/dL (11.5-15.3); Lymphocytes # 2.1 10^3/uL (0.8-4.8); Lymphocytes % 20.8 %; Mean Corpuscular HGB Conc 29.3 g/dL (30.0-36.0); Mean Corpuscular Hemoglobin 24.4 pg (28.0-34.0); Mean Corpuscular Volume 83.5 fL (81-99); Mean Platelet Volume 10.3 fL (7.4-10.4); Monocytes # 1.7 10^3/uL (0.2-0.9); Monocytes % 16.7 %; Neutrophils # 6.19 10^3/uL (1.8-7.7); Neutrophils % 61.6 %; Nucleated Red Blood Cells % 0 %; Platelet Count 333 10^3/cmm (130-400); Red Blood Count 4.42 10^6/uL (4.1-5.3); Red Cell Distribution Width 15.4 % (12.1-15.1); White Blood Count 10.1 10^3/uL (4.0-10.0)
[2020-11-23 05:19] LABS: Alanine Aminotransferase 11 U/L (0-33); Albumin Level 3.7 g/dL (3.5-5.2); Alkaline Phosphatase 84 IU/L (35-105); Aspartate Amino Transferase 12 U/L (0-32); Blood Urea Nitrogen 18 mg/dL (8-23); Calcium 9.2 mg/dL (8.5-10.5); Chloride 89 mmol/L (98-107); Globulin 2.4 g/dL (1.3-4.6); Glucose 130 mg/dL (65-115); Osmolality Calculated 298 mOsm/kg (285-295); Sodium 142 mmol/L (136-145); Total Bilirubin 0.8 mg/dL (0.15-1.2); Total Protein 6.1 g/dL (6.6-8.7)
[2020-11-23 05:21] LABS: Carbon Dioxide 48 mmol/L (22-29)
[2020-11-23] MEDS: morphine 4 mg/mL SDV 1 mL 2 MG IVP ×2 (05:21→22:17)
[2020-11-23 06:49] LABS: Glucose Point of Care 129 mg/dL (70-110)
--- NOTE | 2020-11-23 08:04 | PC.NURSE ---
While patient was eating breakfast this morning she aspirated some of her eggs, patient was able to recover quickly and is resting in bed right now. Oxygen saturation is 95% on 3L NC. Nurse will continue to monitor.
--- NOTE | 2020-11-23 08:05 | PC.NURSE ---
Nurse checked blood pressure manually due to monitor reading of 184/88. Patient's blood pressure manually is 164/100. Patient is to receive Coreg this morning for her blood pressure. Nurse will continue to monitor.
[2020-11-23] MEDS: budesonide 0.5 mg/2 mL Neb INHALATION ×2 (08:29→21:24)
[2020-11-23] MEDS: sucralfate 1 gm Tablet PO ×2 (09:12→21:13)
[2020-11-23] MEDS: duloxetine 30 mg Capsule PO (09:12)
[2020-11-23] MEDS: pantoprazole DR 40 mg Tablet PO (09:13)
[2020-11-23] MEDS: metOLazone 5 MG Tablet 2.5 MG PO (09:13)
[2020-11-23] MEDS: atorvastatin 40 mg Tablet 20 MG PO (09:13)
[2020-11-23] MEDS: carvedilol 3.125 mg Tablet PO (09:14)
[2020-11-23] MEDS: clopidogrel 75 mg Tablet PO (09:14)
[2020-11-23] MEDS: BuSPIRONE 10 mg Tablet PO ×2 (09:14→17:30)
--- NOTE | 2020-11-23 10:37 | P.PN_ITS ---
Subjective Subjective: Interval history: No events overnight. Patient feeling a lot better. Transfer to floor yesterday. Denies any nausea vomiting, headache. Examination awake alert sitting in bed. Plan to transition to chair. On discussing about discharge planning patient would want to go to SNF for further rehabitation. Vitals/I&O/Wt Last Vital Signs Temp 97.8 F 11/23/20 07:22 Pulse 73 11/23/20 08:34 Resp 17 11/23/20 08:30 BP 164/100 11/23/20 08:03 Pulse Ox 96 11/23/20 08:30 11/22/20 11/23/20 11/23/20 22:59 06:59 14:59 Intake Total 240 / 1110 240 / 240 Output Total 1950 / 2675 3000 / 5675 950 / 950 Balance -1710 / -1565 -3000 / -4565 -710 / -710 Weight last 48 hrs Weight 108.664 kg Weight 116.46 kg Physical Exam Narrative: EXAM NARRATIVE: General: No acute distress, AO x3, 3 L nasal cannula saturating 96%. HEENT: PERRLA, pupils bilaterally equal and reactive Chest: Normal vesicular breath sounds, fine crackles bilaterally up to mid lung, right more than left, equal good air entry bilaterally CVS: S1-S2 regular, soft pansystolic murmur at apex, no tachycardia, no gallops, no rubs Abdomen: Soft, distended, nontender, no organomegaly, bowel sounds present Neuro: No focal deficits, no facial deformity, AO x3, power 5/5 in all limbs Urinary Catheter Management^: Dumont: Cath Placed During This Visit: yes Reason for Continuing Indwelling Catheter: Accurate Measurement of Urinary Output in Critically Ill Patients Urinary Catheter Date of Insertion: 11/19/20 Urinary Catheter Time of Insertion: 14:59 Data : 11/23/20 04:00 11/23/20 04:00 A&P Assessment and plan (1) Torsades de pointes: Status: Acute (2) Shortness of breath: Status: Acute (3) Acute HFrEF (heart failure with reduced ejection fraction): Status: Acute (4) Takotsubo cardiomyopathy: Status: Acute (5) COPD (chronic obstructive pulmonary disease): Status: Acute (6) Diarrhea: Status: Acute (7) Diabetes: Status: Acute (8) Hypertension: Status: Acute Additional A&P Information 72-year-old female with past medical history of Takotsubo cardiomyopathy with EF 25 to 30%, COPD on chronic oxygen and BiPAP at night presents with difficulty in breathing getting worse over a couple of weeks, swelling in her lower limbs found to be hypercapnic and placed on BiPAP in the ER. Torsades: Could be secondary to cardiac stress given congestive heart failure. Continue to monitor magnesium, calcium. Keep magnesium around 3 with potassium around 4. Medical reconstruction done for QTC prolonging drugs. For now continue with new generation antipsychotic medication at half the dose adjusted do not cause QT prolongation. Appreciate cardiology recommendations. Shortness of breath: Secondary to congestive heart failure. Switch to oral Lasix 40 mg twice daily. Continue with metolazone 2.5 mg daily. Overall patient 9.5 L negative. Daily weights. Strict input output charting. DuoNebs every 6 hour, budesonide twice daily. Switch to prednisone 40 mg oral daily. Will do a quick taper within next 5 days. We will stop tomorrow if patient continues to do well. Oxygen supplementation keeping saturation around 90% with BiPAP at night as home regimen. Pneumonia, infective pathology has been ruled out. Antibiotics stopped yesterday. Continue to monitor off antibiotics. COVID-19 negative. Echocardiogram results appreciated with EF 38% and grade 2 diastolic dysfunction, moderate aortic stenosis, moderate MR. We will uptitrate the dose of Coreg to 6.25 mg twice daily. Continue with losartan 100 mg daily for now. Type 2 diabetes mellitus: Hold off on any oral hypoglycemics. Insulin sliding scale before meals and at bedtime. Hypertension: Goal blood pressure less than 140/90 mmHg. Antihypertensives as above. Will monitor and change medications accordingly. Diarrhea: No episodes since admission. Has had multiple extensive work-up in t he past including EGD, colonoscopy, infectious work-up. Most likely secondary to congestive gastropathy. CODE STATUS: CODE STATUS discussed in detail again after last night events with patient and daughter at bedside. Patient states she would not want mechanical ventilation but is okay with short course of CPR or defibrillation if needed. CODE STATUS changed to limited resuscitation. Soft mechanical diet. Protonix OPD prophylaxis. Lovenox 40 mg subcu daily for now. Discharge planning: If patient continues to do well we will plan to discharge in next couple of days. Plan will be to discharge to SNF for further rehabitation. Attestations Medical Necessity Statement*: Requires further hospitalization for management of congestive heart failure, recent torsades while safe discharge planning is so ught. Time Spent in Patient Care: Greater than 35 minutes (>than 50% of time spent in counselling and/or direct pt care on unit) . Coding Level of Care Code Acute Liquified Natural Gas Specialist for [facility] Fwd Diagnoses Torsades de pointes I47.2 Shortness of breath R06.02 Acute HFrEF (heart failure with reduced ejection fraction) I50.21 Takotsubo cardiomyopathy I51.81 COPD (chronic obstructive pulmonary disease) J44.9 Diarrhea R19.7 Diabetes E11.9 Hypertension I10
[2020-11-23] MEDS: FUROsemide 10 mg/mL SDV 10mL 80 MG IVP (10:40)
[2020-11-23] MEDS: potassium chloride oral liq 20 mEq/15 mL UDC 80 MEQ PO (10:58)
[2020-11-23 11:34] LABS: Glucose Point of Care 185 mg/dL (70-110)
[2020-11-23] MEDS: acetaminophen 325 mg Tablet 650 MG PO (12:02)
[2020-11-23] MEDS: FUROsemide 40 mg Tablet PO (15:32)
--- NOTE | 2020-11-23 15:47 | NUR.SHIFT ---
Patients blood pressure is 184/[address] Steele and he ordered to give 100mg losartan. Losartan was given will continue to monitor.
[2020-11-23] MEDS: losartan 50 mg Tablet 100 MG PO (15:58)
[2020-11-23 16:33] LABS: Glucose Point of Care 215 mg/dL (70-110)
--- NOTE | 2020-11-23 17:05 | PM.PN ---
Subjective Subjective: Interval history: Patient says she is feeling better denies any chest pain or shortness of breath no more event in terms of arrhythmia Vitals/I&O/Wt Last Vital Signs Temp 98.0 F 11/23/20 15:21 Pulse 70 11/23/20 15:40 Resp 16 11/23/20 15:36 BP 189/104 11/23/20 15:58 Pulse Ox 95 11/23/20 15:36 11/23/20 11/23/20 11/23/20 06:59 14:59 22:59 Intake Total 480 / 480 Output Total 3000 / 5675 2800 / 2800 Balance -3000 / -4565 -2320 / -2320 Weight last 48 hrs Weight 239 lb 9 oz Weight 256 lb 12.005 oz Physical Exam Narrative: EXAM NARRATIVE: GENERAL: Patient is lethargic but oriented not in distress NECK: No jugular vein distension. HEENT: No cyanosis. No icterus. No pallor. HEART: Regular S1 and S2. No murmur, rub or gallop. LUNGS: Basal inspiratory crackles bilaterally. ABDOMEN: Not examined CENTRAL NERVOUS SYSTEM: Grossly nonfocal. EXTREMITIES: Lower extremities without edema bilaterally. Urinary Catheter Management^: Dumont: Cath Placed During This Visit: yes Reason for Continuing Indwelling Catheter: Accurate Measurement of Urinary Output in Critically Ill Patients Urinary Catheter Date of Insertion: 11/19/20 Urinary Catheter Time of Insertion: 14:59 Data : 11/23/20 04:00 11/23/20 04:00 A&P Assessment and plan (1) Torsades de pointes: Patient had episode of sustained torsade requiring 2 rounds of CPR. At this point we will discontinue all antidepressant and antipsychotic medicines. Magnesium was replenished with a goal of magnesium more than 2 and potassium around 4.0. Will ask for baseline twelve-lead EKG to assess QT QTC. Will titrate carvedilol ARB. Add aldosterone to the regimen. Will repeat echocardiogram to assess LV function. If remains below 35 and as patient had documented episodes of torsade we recommend proceeding with ICD placement. On today's visit patient stable doing fine from cardiovascular perspective. Continue diuresing. Continue optimization of electrolyte balance. Left ventricular ejection fraction remains at 38% which has not changed from the prior exam by recent echo. Patient may will be benefited with ICD placement. Will refer her to Dr. Bhatia before discharge Stable. Continue current regimen. Patient left ventricle ejection fraction around 38%. She has nonischemic cardiomyopathy despite of optimization of medicine ejection fraction has not improved and patient had episodes of torsade with QT prolongation. In that case we recommend ICD placement. I have discussed with patient daughter is nice and clean and patient regarding it patient and her daughter would like to think over it. Status: Acute (2) Cardiomyopathy: Appear to be euvolemic we will switch to p.o. Lasix Status: Acute Qualifiers: Cardiomyopathy type: dilated Qualified Code(s): I42.0 - Dilated cardiomyopathy (3) Hypertension: Well-controlled continue medicine Status: Acute Attestations Medical Necessity Statement*: Patient require continuation hospitalization for above defined care Coding Level of Care Code Established Pt Acute Retort Cooler for [facility] Fwd Patient Type Established History Detailed Exam Detailed Medical Decision Making Moderate Complexity Diagnoses Torsades de pointes I47.2 Cardiomyopathy I42.0 Cardiomyopathy type: dilated Hypertension I10
--- NOTE | 2020-11-23 17:34 | PC.NURSE ---
Received orders from Dr. Steele to remove clay catheter around 5pm. Removed clay and educated patient to alert nurse when she feels the urge to urinate.
--- NOTE | 2020-11-23 17:45 | PC.RESP ---
Smoking Cessation and Pulmonary Rehab information sent to patient.
--- NOTE | 2020-11-23 18:00 | PC.NURSE ---
Retook patients blood pressure manually. Blood pressure is 164/[address] Steele has been notified. Automatic blood pressure cuff has been reading high compared to manual cuff.
[2020-11-23 20:40] LABS: Glucose Point of Care 196 mg/dL (70-110)
[2020-11-23] MEDS: carvedilol 6.25 mg Tablet PO (21:13)
[2020-11-23] MEDS: enoxaparin 40 mg/0.4 mL Syringe SUBCUT (21:13)
[2020-11-24] VITALS (27 sets, daily range): BP systolic 135–192; BP diastolic 68–96; PULSE 54–91; RESP 12–20; TEMP 36.7–36.9; O2SAT 91–100
[2020-11-24] MEDS: ipratropium-albuterol 3 mL Neb INHALATION ×4 (03:03→20:09)
[2020-11-24 04:36] LABS: Basophils % 0.1 %; Hematocrit 38.2 % (37.0-47.0); Hemoglobin 11.3 g/dL (11.5-15.3); Lymphocytes # 1.3 10^3/uL (0.8-4.8); Lymphocytes % 14.4 %; Mean Corpuscular HGB Conc 29.6 g/dL (30.0-36.0); Mean Corpuscular Hemoglobin 24.5 pg (28.0-34.0); Mean Corpuscular Volume 82.7 fL (81-99); Mean Platelet Volume 10.6 fL (7.4-10.4); Monocytes # 1.2 10^3/uL (0.2-0.9); Monocytes % 12.8 %; Neutrophils # 6.59 10^3/uL (1.8-7.7); Neutrophils % 72.4 %; Nucleated Red Blood Cells % 0 %; Platelet Count 334 10^3/cmm (130-400); Red Blood Count 4.62 10^6/uL (4.1-5.3); White Blood Count 9.1 10^3/uL (4.0-10.0)
[2020-11-24 05:02] LABS: Alanine Aminotransferase 12 U/L (0-33); Albumin Level 3.7 g/dL (3.5-5.2); Alkaline Phosphatase 85 IU/L (35-105); Aspartate Amino Transferase 9 U/L (0-32); Blood Urea Nitrogen 14 mg/dL (8-23); Calcium 9.8 mg/dL (8.5-10.5); Chloride 86 mmol/L (98-107); Globulin 2.5 g/dL (1.3-4.6); Glucose 118 mg/dL (65-115); Osmolality Calculated 298 mOsm/kg (285-295); Potassium 3.3 mmol/L (3.5-5.1); Sodium 143 mmol/L (136-145); Total Bilirubin 1.4 mg/dL (0.15-1.2); Total Protein 6.2 g/dL (6.6-8.7)
[2020-11-24 06:09] LABS: Anion Gap 14.3 (5-19)
[2020-11-24 06:10] LABS: Carbon Dioxide 46 mmol/L (22-29)
[2020-11-24] MEDS: morphine 4 mg/mL SDV 1 mL 2 MG IVP ×3 (06:34→19:43)
[2020-11-24 06:54] LABS: Glucose Point of Care 141 mg/dL (70-110)
[2020-11-24] MEDS: FUROsemide 40 mg Tablet PO ×2 (08:13→16:22)
[2020-11-24] MEDS: potassium chloride oral liq 20 mEq/15 mL UDC PO (08:13)
[2020-11-24] MEDS: pantoprazole DR 40 mg Tablet PO (08:13)
[2020-11-24] MEDS: clopidogrel 75 mg Tablet PO (08:13)
[2020-11-24] MEDS: duloxetine 30 mg Capsule PO (08:13)
[2020-11-24] MEDS: sucralfate 1 gm Tablet PO ×2 (08:13→20:41)
[2020-11-24] MEDS: predniSONE 20 mg Tablet 40 MG PO (08:14)
[2020-11-24] MEDS: losartan 50 mg Tablet 100 MG PO (08:14)
[2020-11-24] MEDS: atorvastatin 40 mg Tablet 20 MG PO (08:14)
[2020-11-24] MEDS: BuSPIRONE 10 mg Tablet PO ×2 (08:15→18:04)
[2020-11-24] MEDS: carvedilol 6.25 mg Tablet PO (08:15)
[2020-11-24] MEDS: metOLazone 5 MG Tablet 2.5 MG PO (08:16)
[2020-11-24] MEDS: budesonide 0.5 mg/2 mL Neb INHALATION ×2 (08:43→20:09)
[2020-11-24] MEDS: LORazepam 2 mg/mL INJ 1 mL 1 MG IVP ×2 (09:17→18:04)
--- NOTE | 2020-11-24 10:05 | PC.CHAP ---
Pastoral Care Encounter/Spiritual Assessment Type of Contact [] Declined press cutter visit [] Patient/Family/Request visit [] Outpatient visit [XX] Follow-up visit [] Physician referral [] Code/Alert [XX] Routine visit [] Staff referral [] Actively dying [XX] Patient sleeping [] Family support [] [] Out of room [] Palliative care [] [] Receiving care in room [] Pre-surgical visit [] Trauma [] Long length of stay [] ICU visit [] Other: Relational/Emotional Strength [] Patient feels connected with others/family/visitors/staff [] Distress [] Loneliness/isolation [] Abandonment Spirituality of Patient [] Person of Maria E [] Attends Lutheran of their Maria E [] Believes in Prayer [] Reads Bible or Spiritism materials [] There are Spiritual issues to be addressed Technical Sales Specialist Interventions [] Prayer [] Active listening [] Non-anxious presence [] Spiritual/emotional support [] Crisis/trauma care [] Spiritual counseling [] Bereavement support [] Provided bereavement packet [] Provided Bible/devotional materials [] Provided toy/stuffed animal, coloring book to patient or family member [] Provided Communion [] Anointing/[place] [] Salvation [] Completed spiritual assessment [] Other: Impact on Illness or Injury [] Angry [] Fearful [] Anxious [] Often cries [] Exhaustion [] Unable to work [] Unable to attend baptism [] Unable to walk/stand [] Unable to read [] Unable to drive [] Unable to eat/drink [] Unable to sleep [] Unable to be with family [] Patient intubated [] Other: Summary: Technical Sales Specialist TT had prayed over pt when she was in ICU. Plan today was to follow-up with pt, if pt desired such. Pt sleeping. Technical Sales Specialist LWD will attempt visit again tomorrow. Time spent with patient
--- NOTE | 2020-11-24 10:40 | PM.PN ---
Subjective Subjective: Interval history: Denies any complaint. Medications: Reviewed: Yes Vitals/I&O/Wt Last Vital Signs Temp 98.3 F 11/24/20 08:00 Pulse 69 11/24/20 08:49 Resp 16 11/24/20 08:44 BP 188/94 11/24/20 08:14 Pulse Ox 98 11/24/20 08:44 11/23/20 11/24/20 11/24/20 22:59 06:59 14:59 Intake Total 120 / 120 Output Total 1250 / 4050 Balance -1250 / -3570 120 / 120 Weight last 48 hrs Weight 229 lb Weight 239 lb 9 oz Physical Exam Narrative: EXAM NARRATIVE: GENERAL: Patient is alert, awake and oriented x2. NECK: No jugular vein distension. HEENT: No cyanosis. No icterus. No pallor. HEART: Regular S1 and S2. No murmur, rub or gallop. LUNGS: Clear to auscultate bilaterally. ABDOMEN: Soft, nontender and nondistended. Positive bowel sounds. No guarding, rebound or tenderness. CENTRAL NERVOUS SYSTEM: Grossly nonfocal. EXTREMITIES: Lower extremities with 1+ edema bilaterally. Urinary Catheter Management^: Dumont: Cath Placed During This Visit: yes, but has since been removed by the nurse Reason for Continuing Indwelling Catheter: Not indwelling catheter Urinary Catheter Date of Insertion: 11/19/20 Urinary Catheter Time of Insertion: 14:59 Date Urinary Catheter Removed: 11/23/20 Time Urinary Catheter Discontinued: 15:30 Data : 11/24/20 03:25 11/24/20 03:25 Micro: Microbiology 11/19/20 14:20 Blood Culture - Preliminary Blood Staphylococcus sp coag neg A&P Assessment and plan (1) Torsades de pointes: Patient had episode of sustained torsade requiring 2 rounds of CPR. At this point we will discontinue all antidepressant and antipsychotic medicines. Magnesium was replenished with a goal of magnesium more than 2 and potassium around 4.0. Will ask for baseline twelve-lead EKG to assess QT QTC. Will titrate carvedilol ARB. Add aldosterone to the regimen. Will repeat echocardiogram to assess LV function. If remains below 35 and as patient had documented episodes of torsade we recommend proceeding with ICD placement. On today's visit patient stable doing fine from cardiovascular perspective. Continue diuresing. Continue optimization of electrolyte balance. Left ventricular ejection fraction remains at 38% which has not changed from the prior exam by recent echo. Patient may will be benefited with ICD placement. Will refer her to Dr. Bhatia before discharge Stable. Continue current regimen. Patient left ventricle ejection fraction around 38%. She has nonischemic cardiomyopathy despite of optimization of medicine ejection fraction has not improved and patient had episodes of torsade with QT prolongation. In that case we recommend ICD placement. I have discussed with patient daughter is nice and clean and patient regarding it patient and her daughter would like to think over it. On today's visit I discussed ICD with the patient I am not sure whether she understand me or not but she has refused it. She would like me to talk to her daughter, yesterday discussed with her daughter she wanted me to talk to her mother. I have asked the patient she can discuss with her daughter as I already discussed with her and if she declined ICD we will continue to treat her medically. Status: Acute (2) Cardiomyopathy: Stable. Continue to monitor continue current diet Status: Acute Qualifiers: Cardiomyopathy type: dilated Qualified Code(s): I42.0 - Dilated cardiomyopathy (3) Hypertension: Not well controlled I will increase losartan to 150 mg and Coreg to 9.75 mg twice a day. Status: Acute Attestations Medical Necessity Statement*: Require continuation hospitalization for above defined care. 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
[2020-11-24] MEDS: amlodipine 10 mg Tablet PO (10:49)
[2020-11-24 11:25] LABS: Glucose Point of Care 165 mg/dL (70-110)
[2020-11-24] MEDS: losartan 50 mg Tablet PO (11:45)
--- NOTE | 2020-11-24 15:55 | P.PN_ITS ---
Subjective Subjective: Interval history: No acute events overnight. Patient states she is feeling well. Denies any nausea, burning, headache. Sitting up in chair. States she is feeling better and wants to know when she can go. Medications: Reviewed: Yes Vitals/I&O/Wt Last Vital Signs Temp 98.0 F 11/24/20 15:03 Pulse 91 11/24/20 15:03 Resp 16 11/24/20 15:03 BP 135/68 11/24/20 15:03 Pulse Ox 94 11/24/20 15:03 11/24/20 11/24/20 11/24/20 06:59 14:59 22:59 Intake Total 240 / 240 Balance 240 / 240 Weight last 48 hrs Weight 103.873 kg Weight 108.664 kg Physical Exam Narrative: EXAM NARRATIVE: General: No acute distress, AO x3, 3 L nasal cannula saturating 96%. HEENT: PERRLA, pupils bilaterally equal and reactive Chest: Normal vesicular breath sounds, fine crackles bilaterally up to mid lung, right more than left, equal good air entry bilaterally CVS: S1-S2 regular, soft pansystolic murmur at apex, no tachycardia, no gallops, no rubs Abdomen: Soft, distended, nontender, no organomegaly, bowel sounds present Neuro: No focal deficits, no facial deformity, AO x3, power 5/5 in all limbs Urinary Catheter Management^: Dumont: Cath Placed During This Visit: yes, but has since been removed by the nurse Reason for Continuing Indwelling Catheter: Not indwelling catheter Urinary Catheter Date of Insertion: 11/19/20 Urinary Catheter Time of Insertion: 14:59 Date Urinary Catheter Removed: 11/23/20 Time Urinary Catheter Discontinued: 15:30 Data : 11/24/20 03:25 11/24/20 03:25 Micro: Microbiology 11/19/20 14:25 Blood Culture - Final Blood NO GROWTH AFTER 5 DAYS 11/19/20 14:20 Blood Culture - Preliminary Blood Staphylococcus sp coag neg A&P Assessment and plan (1) Torsades de pointes: Status: Acute (2) Shortness of breath: Status: Acute (3) Acute HFrEF (heart failure with reduced ejection fraction): Status: Acute (4) Takotsubo cardiomyopathy: Status: Acute (5) COPD (chronic obstructive pulmonary disease): Status: Acute (6) Diarrhea: Status: Acute (7) Diabetes: Status: Acute (8) Hypertension: Status: Acute Additional A&P Information 72-year-old female with past medical history of Takotsubo cardiomyopathy with EF 25 to 30%, COPD on chronic oxygen and BiPAP at night presents with difficulty in breathing getting worse over a couple of weeks, swelling in her lower limbs found to be hypercapnic and placed on BiPAP in the ER. Shortness of breath: Secondary to congestive heart failure. Switch to oral Lasix 40 mg twice daily. Continue with metolazone 2.5 mg daily. Overall patient 12 L negative. Daily weights. Strict input output charting. DuoNebs every 6 hour, budesonide twice daily. Switch to prednisone 40 mg oral daily. Will do a quick taper within next 5 days. Oxygen supplementation keeping saturation around 90% with BiPAP at night as home regimen. Pneumonia, infective pathology has been ruled out. Antibiotics stopped yesterday. Continue to monitor off antibiotics. COVID-19 negative. Echocardiogram results appreciated with EF 38% and grade 2 diastolic dysfunction, moderate aortic stenosis, moderate MR. Torsades: Could be secondary to cardiac stress given congestive heart failure. Continue to monitor magnesium, calcium. Keep magnesium around 3 with potassium around 4. Medical reconstruction done for QTC prolonging drugs. For now continue with new generation antipsychotic medication at half the dose adjusted do not cause QT prolongation. Appreciate cardiology recommendations. Patient will most likely require an ICD. We will confirm with cardiology. Type 2 diabetes mellitus: Hold off on any oral hypoglycemics. Insulin sliding scale before meals and at bedtime. Hypertension: Goal blood pressure less than 140/90 mmHg. Patient blood pressure has been trending up. Will increase the dose of Coreg again to 9.375 mg twice daily. We will increase the dose of losartan to 150 mg daily. Will monitor kidney functions. Diarrhea: No episodes since admission. Has had multiple extensive work-up in the past including EGD, colonoscopy, infectious work-up. Most likely secondary to congestive gastropathy. CODE STATUS: CODE STATUS discussed in detail again after last night events with patient and daughter at bedside. Patient states she would not want mechanical ventilation but is okay with short course of CPR or defibrillation if needed. CODE STATUS changed to limited resuscitation. Soft mechanical diet. Protonix OPD prophylaxis. Lovenox 40 mg subcu daily for now. Discharge planning: If patient continues to do well we will plan to discharge in next couple of days. Plan will be to discharge to SNF for further rehabitation. Patient has been accepted at [facility]. Awaiting authorization. Patient's care plan and discharge planning discussed in detail with daughter on phone. All the questions were answered. Attestations Medical Necessity Statement*: Requires further hospitalization for management of hypoxia secondary to congestive heart failure, high blood pressures while antihypertensives were adjusted. Time Spent in Patient Care: Greater than 35 minutes (>than 50% of time spent in counselling and/or direct pt care on unit) . Coding Level of Care Code Acute Professor Sculpture for [facility]g Fwd Diagnoses Torsades de pointes I47.2 Shortness of breath R06.02 Acute HFrEF (heart failure with reduced ejection fraction) I50.21 Takotsubo cardiomyopathy I51.81 COPD (chronic obstructive pulmonary disease) J44.9 Diarrhea R19.7 Diabetes E11.9 Hypertension I10
[2020-11-24 16:36] LABS: Glucose Point of Care 233 mg/dL (70-110)
--- NOTE | 2020-11-24 19:37 | PC.NURSE ---
Patient is asking for a pain shot. She states that her chest hurts with movement and to the touch. PRN Morphine will be given.
--- NOTE | 2020-11-24 19:46 | PC.NURSE ---
Patient is burping. Patient states It always hurts like this after I eat.
--- NOTE | 2020-11-24 19:51 | PC.NURSE ---
Dr. Dowell notified of patient moaning in pain, stating that her chest hurts. Patient is burping and saying it happens after she eats. When I touched her chest, she stated it was very sore to the touch. Patient just received PRN Morphine and receives protonix daily. Ordered to give dose of Protonix now.
[2020-11-24 20:22] LABS: Glucose Point of Care 242 mg/dL (70-110)
[2020-11-24] MEDS: carvedilol 6.25 mg Tablet 9.375 MG PO (20:41)
[2020-11-24] MEDS: enoxaparin 40 mg/0.4 mL Syringe SUBCUT (20:41)
[2020-11-24] MEDS: pantoprazole 40 mg SDV IVP (20:42)
[2020-11-24] MEDS: trazodone 150 mg Tablet 75 MG PO (20:47)
[2020-11-25] VITALS (40 sets, daily range): BP systolic 131–164; BP diastolic 55–91; PULSE 45–81; RESP 14–28; TEMP 36.3–36.8; O2SAT 95–100
--- NOTE | 2020-11-25 01:07 | PC.NURSE ---
Patient is currently resting with eyes closed with Bipap on.
[2020-11-25] MEDS: ipratropium-albuterol 3 mL Neb INHALATION ×4 (03:15→20:10)
--- NOTE | 2020-11-25 04:11 | PC.NURSE ---
Patient has incontinent episode x3 and brief change x3 throughout shift.
[2020-11-25 06:21] LABS: Basophils % 0.1 %; Eosinophils # 0.1 10^3/uL (0.0-0.8); Eosinophils % 0.6 %; Hematocrit 36.7 % (37.0-47.0); Hemoglobin 10.8 g/dL (11.5-15.3); Lymphocytes # 2.2 10^3/uL (0.8-4.8); Lymphocytes % 28.6 %; Mean Corpuscular HGB Conc 29.4 g/dL (30.0-36.0); Mean Corpuscular Hemoglobin 24.3 pg (28.0-34.0); Mean Corpuscular Volume 82.7 fL (81-99); Mean Platelet Volume 10.7 fL (7.4-10.4); Monocytes # 1.1 10^3/uL (0.2-0.9); Monocytes % 14.1 %; Neutrophils % 56.3 %; Nucleated Red Blood Cells % 0 %; Platelet Count 319 10^3/cmm (130-400); Red Blood Count 4.44 10^6/uL (4.1-5.3); White Blood Count 7.8 10^3/uL (4.0-10.0)
[2020-11-25] MEDS: morphine 4 mg/mL SDV 1 mL 2 MG IVP ×5 (06:32→23:47)
--- NOTE | 2020-11-25 06:32 | PC.NURSE ---
Patient rested most of the night with no complaints of pain. At this time, patient complains of chest pain again this morning. Patient states that is hurts when she moves or when it is touched. PRN Morphine given per patient request.
[2020-11-25 06:41] LABS: Glucose Point of Care 106 mg/dL (70-110)
[2020-11-25 06:44] LABS: Alanine Aminotransferase 10 U/L (0-33); Albumin Level 3.5 g/dL (3.5-5.2); Alkaline Phosphatase 74 IU/L (35-105); Aspartate Amino Transferase 7 U/L (0-32); Blood Urea Nitrogen 12 mg/dL (8-23); Calcium 10.1 mg/dL (8.5-10.5); Chloride 86 mmol/L (98-107); Globulin 2.3 g/dL (1.3-4.6); Glucose 100 mg/dL (65-115); Osmolality Calculated 294 mOsm/kg (285-295); Sodium 142 mmol/L (136-145); Total Bilirubin 1.2 mg/dL (0.15-1.2); Total Protein 5.8 g/dL (6.6-8.7)
[2020-11-25 07:08] LABS: Carbon Dioxide 50 mmol/L (22-29)
[2020-11-25] MEDS: losartan 50 mg Tablet 150 MG PO (08:04)
[2020-11-25] MEDS: sucralfate 1 gm Tablet PO ×2 (08:04→20:16)
[2020-11-25] MEDS: potassium chloride oral liq 20 mEq/15 mL UDC PO (08:04)
[2020-11-25] MEDS: metOLazone 5 MG Tablet 2.5 MG PO (08:05)
[2020-11-25] MEDS: BuSPIRONE 10 mg Tablet PO ×2 (08:05→17:19)
[2020-11-25] MEDS: clopidogrel 75 mg Tablet PO (08:05)
[2020-11-25] MEDS: predniSONE 20 mg Tablet 40 MG PO (08:05)
[2020-11-25] MEDS: pantoprazole DR 40 mg Tablet PO (08:05)
[2020-11-25] MEDS: duloxetine 30 mg Capsule PO (08:06)
[2020-11-25] MEDS: atorvastatin 40 mg Tablet 20 MG PO (08:06)
--- NOTE | 2020-11-25 08:28 | PC.NURSE ---
Contacted physician regarding patient's low K+ and elevated CO2. Order received to hold morning dose of lasix.
[2020-11-25] MEDS: budesonide 0.5 mg/2 mL Neb INHALATION ×2 (09:26→20:10)
[2020-11-25] MEDS: carvedilol 6.25 mg Tablet 9.375 MG PO (09:36)
--- NOTE | 2020-11-25 09:49 | P.PN_ITS ---
Subjective Subjective: Interval history: No acute events overnight. Patient has remained hemodynamically stable and afebrile. Awake alert oriented. Denies any nausea, vomiting, headache. Overnight had few events of bradycardia with heart rate going down to mid 50s. Medications: Reviewed: Yes Vitals/I&O/Wt Last Vital Signs Temp 98.0 F 11/25/20 07:19 Pulse 60 11/25/20 09:32 Resp 22 H 11/25/20 09:37 BP 134/77 11/25/20 08:04 Pulse Ox 96 11/25/20 09:26 11/24/20 11/25/20 11/25/20 22:59 06:59 14:59 Intake Total 240 / 480 300 / 780 240 / 240 Balance 240 / 480 300 / 780 240 / 240 Weight last 48 hrs Weight 103.419 kg Weight 103.873 kg Physical Exam Narrative: EXAM NARRATIVE: General: No acute distress, AO x3, 3 L nasal cannula saturating 96%. HEENT: PERRLA, pupils bilaterally equal and reactive Chest: Normal vesicular breath sounds, fine crackles bilaterally up to mid lung, right more than left, equal good air entry bilaterally CVS: S1-S2 regular, soft pansystolic murmur at apex, no tachycardia, no gallops, no rubs Abdomen: Soft, distended, nontender, no organomegaly, bowel sounds present Neuro: No focal deficits, no facial deformity, AO x3, power 5/5 in all limbs Urinary Catheter Management^: Dumont: Cath Placed During This Visit: yes, but has since been removed by the nurse Reason for Continuing Indwelling Catheter: Decision to DC Catheter Urinary Catheter Date of Insertion: 11/19/20 Urinary Catheter Time of Insertion: 14:59 Date Urinary Catheter Removed: 11/23/20 Time Urinary Catheter Discontinued: 17:30 Data : 11/25/20 04:48 11/25/20 04:48 Micro: Microbiology 11/19/20 14:25 Blood Culture - Final Blood NO GROWTH AFTER 5 DAYS A&P Assessment and plan (1) Torsades de pointes: Status: Acute (2) Shortness of breath: Status: Acute (3) Acute HFrEF (heart failure with reduced ejection fraction): Status: Acute (4) Takotsubo cardiomyopathy: Status: Acute (5) COPD (chronic obstructive pulmonary disease): Status: Acute (6) Diarrhea: Status: Acute (7) Diabetes: Status: Acute (8) Hypertension: Status: Acute Additional A&P Information 72-year-old female with past medical history of Takotsubo cardiomyopathy with EF 25 to 30%, COPD on chronic oxygen and BiPAP at night presents with difficulty in breathing getting worse over a couple of weeks, swelling in her lower limbs found to be hypercapnic and placed on BiPAP in the ER. Shortness of breath: Secondary to congestive heart failure. Given contraction alkalosis we will hold off on Lasix today. Going forward we will switch Lasix to 40 mg daily. Continue with metolazone 2.5 mg daily. Overall patient 11 L negative. Daily weights. Strict input output charting. DuoNebs every 6 hour, budesonide twice daily. Switch to prednisone 40 mg oral daily. Will do a quick taper within next 5 days. Oxygen supplementation keeping saturation around 90% with BiPAP at night as home regimen. Pneumonia, infective pathology has been ruled out. Antibiotics stopped yesterday. Continue to monitor off antibiotics. COVID-19 negative. Echocardiogram results appreciated with EF 38% and grade 2 diastolic dysfunction, moderate aortic stenosis, moderate MR. Torsades: Could be secondary to cardiac stress given congestive heart failure. Continue to monitor magnesium, calcium. Keep magnesium around 3 with potassium around 4. Medical reconstruction done for QTC prolonging drugs. For now continue with new generation antipsychotic medication at half the dose adjusted do not cause QT prolongation. Appreciate cardiology recommendations. Patient will most likely require an ICD. We will confirm with cardiology. Type 2 diabetes mellitus: Hold off on any oral hypoglycemics. Insulin sliding scale before meals and at bedtime. Hypertension: Goal blood pressure less than 140/90 mmHg. Blood pressure better controlled. But given the bradycardia overnight will decrease Coreg to 6.5 mg twice daily. Continue losartan 140 mg daily. Will monitor kidney functions. Diarrhea: No episodes since admission. Has had multiple extensive work-up in the past including EGD, colonoscopy, infectious work-up. Most likely secondary to congestive gastropathy. CODE STATUS: CODE STATUS discussed in detail again after last night events with patient and daughter at bedside. Patient states she would not want mechanical ventilation but is okay with short course of CPR or defibrillation if needed. CODE STATUS changed to limited resuscitation. Soft mechanical diet. Protonix OPD prophylaxis. Lovenox 40 mg subcu daily for now. Discharge planning: If patient continues to do well we will plan to discharge in next couple of days. Plan will be to discharge to SNF for further rehabitation. Patient has been accepted at [facility]. Awaiting authorization. Patient's care plan and discharge planning discussed in detail with daughter on phone. All the questions were answered. Attestations Medical Necessity Statement*: Requires further hospitalization for management of shortness of breath secondary to congestive heart failure while patient awaits safe placement. Time Spent in Patient Care: Greater than 35 minutes (>than 50% of time spent in counselling and/or direct pt care on unit) . Coding Level of Care Code Acute Consumer Marketing Manager for g Fwd Diagnoses Torsades de pointes I47.2 Shortness of breath R06.02 Acute HFrEF (heart failure with reduced ejection fraction) I50.21 Takotsubo cardiomyopathy I51.81 COPD (chronic obstructive pulmonary disease) J44.9 Diarrhea R19.7 Diabetes E11.9 Hypertension I10
[2020-11-25 11:27] LABS: Glucose Point of Care 187 mg/dL (70-110)
--- NOTE | 2020-11-25 12:00 | PC.CHAP ---
Pastoral Care Encounter/Spiritual Assessment Type of Contact [] Declined ingredient scaler helper visit [] Patient/Family/Request visit [] Outpatient visit [XX] Follow-up visit [] Physician referral [] Code/Alert [] Routine visit [] Staff referral [] Actively dying [] Patient sleeping [] Family support [] [] Out of room [] Palliative care [] [XX] Receiving care in room [] Pre-surgical visit [] Trauma [] Long length of stay [] ICU visit [] Other: Relational/Emotional Strength [] Patient feels connected with others/family/visitors/staff [] Distress [] Loneliness/isolation [] Abandonment Spirituality of Patient [] Person of Maria E [] Attends Jehovah'S Witness of their Maria E [] Believes in Prayer [] Reads Bible or Rastafarian materials [] There are Spiritual issues to be addressed Metal Trades Instructor Interventions [] Prayer [] Active listening [] Non-anxious presence [] Spiritual/emotional support [] Crisis/trauma care [] Spiritual counseling [] Bereavement support [] Provided bereavement packet [] Provided Bible/devotional materials [] Provided toy/stuffed animal, coloring book to patient or family member [] Provided Communion [] Anointing/[place] [] Salvation [] Completed spiritual assessment [] Other: Impact on Illness or Injury [] Angry [] Fearful [] Anxious [] Often cries [] Exhaustion [] Unable to work [] Unable to attend cheondoism [] Unable to walk/stand [] Unable to read [] Unable to drive [] Unable to eat/drink [] Unable to sleep [] Unable to be with family [] Patient intubated [] Other: Summary Time spent with patient
--- NOTE | 2020-11-25 13:44 | PM.PN ---
Subjective Subjective: Interval history: Denies any complaint. No overnight event Medications: Reviewed: Yes Vitals/I&O/Wt Last Vital Signs Temp 97.3 F L 11/25/20 12:00 Pulse 55 L 11/25/20 12:00 Resp 15 11/25/20 12:00 BP 131/56 11/25/20 12:00 Pulse Ox 97 11/25/20 12:00 11/24/20 11/25/20 11/25/20 22:59 06:59 14:59 Intake Total 240 / 480 300 / 780 480 / 480 Balance 240 / 480 300 / 780 480 / 480 Weight last 48 hrs Weight 228 lb Weight 229 lb Physical Exam Narrative: EXAM NARRATIVE: GENERAL: Patient is alert, awake and oriented x2. NECK: No jugular vein distension. HEENT: No cyanosis. No icterus. No pallor. HEART: Regular S1 and S2. No murmur, rub or gallop. LUNGS: Clear to auscultate bilaterally. ABDOMEN: Soft, nontender and nondistended. Positive bowel sounds. No guarding, rebound or tenderness. CENTRAL NERVOUS SYSTEM: Grossly nonfocal. EXTREMITIES: Lower extremities with trace edema bilaterally. Urinary Catheter Management^: Dumont: Cath Placed During This Visit: yes, but has since been removed by the nurse Reason for Continuing Indwelling Catheter: Decision to DC Catheter Urinary Catheter Date of Insertion: 11/19/20 Urinary Catheter Time of Insertion: 14:59 Date Urinary Catheter Removed: 11/23/20 Time Urinary Catheter Discontinued: 17:30 Data : 11/25/20 04:48 11/25/20 04:48 Micro: Microbiology 11/20/20 12:32 Blood Culture - Final Blood NO GROWTH AFTER 5 DAYS 11/20/20 12:30 Blood Culture - Final Blood NO GROWTH AFTER 5 DAYS 11/19/20 14:25 Blood Culture - Final Blood NO GROWTH AFTER 5 DAYS A&P Assessment and plan (1) Torsades de pointes: Patient had episode of sustained torsade requiring 2 rounds of CPR. At this point we will discontinue all antidepressant and antipsychotic medicines. Magnesium was replenished with a goal of magnesium more than 2 and potassium around 4.0. Will ask for baseline twelve-lead EKG to assess QT QTC. Will titrate carvedilol ARB. Add aldosterone to the regimen. Will repeat echocardiogram to assess LV function. If remains below 35 and as patient had documented episodes of torsade we recommend proceeding with ICD placement. On today's visit patient stable doing fine from cardiovascular perspective. Continue diuresing. Continue optimization of electrolyte balance. Left ventricular ejection fraction remains at 38% which has not changed from the prior exam by recent echo. Patient may will be benefited with ICD placement. Will refer her to Dr. Bhatia before discharge Stable. Continue current regimen. Patient left ventricle ejection fraction around 38%. She has nonischemic cardiomyopathy despite of optimization of medicine ejection fraction has not improved and patient had episodes of torsade with QT prolongation. In that case we recommend ICD placement. I have discussed with patient daughter is nice and clean and patient regarding it patient and her daughter would like to think over it. On today's visit I discussed ICD with the patient I am not sure whether she understand me or not but she has refused it. She would like me to talk to her daughter, yesterday discussed with her daughter she wanted me to talk to her mother. I have asked the patient she can discuss with her daughter as I already discussed with her and if she declined ICD we will continue to treat her medically. Again I try to discuss ICD with her patient is not sure and would not like to do it. I have also spoken to her daughter in the past and she would like her mom to make decision. Patient would not like to proceed with it. We will continue to treat her medically. She is awaiting [facility] placement now. Continue medical management. Status: Acute (2) Cardiomyopathy: Appear to be stable continue current regimen Status: Acute Qualifiers: Cardiomyopathy type: dilated Qualified Code(s): I42.0 - Dilated cardiomyopathy (3) Hypertension: Now getting better and under control after optimization of medicine. Status: Acute Attestations Medical Necessity Statement*: From a cardiovascular perspective patient can be discharged [facility] Coding Level of Care Code Established Pt Acute Finishing Range Feeder for Chg Fwd Patient Type Established History Detailed Exam Detailed Medical Decision Making Moderate Complexity Diagnoses Torsades de pointes I47.2 Cardiomyopathy I42.0 Cardiomyopathy type: dilated Hypertension I10
[2020-11-25 16:22] LABS: Glucose Point of Care 201 mg/dL (70-110)
[2020-11-25] MEDS: carvedilol 6.25 mg Tablet PO (20:17)
[2020-11-25] MEDS: trazodone 150 mg Tablet 75 MG PO (20:17)
[2020-11-25 21:40] LABS: Glucose Point of Care 219 mg/dL (70-110)
[2020-11-25] MEDS: enoxaparin 40 mg/0.4 mL Syringe SUBCUT (22:25)
[2020-11-26] VITALS (42 sets, daily range): BP systolic 126–167; BP diastolic 65–90; PULSE 50–70; RESP 9–27; TEMP 36.6–36.8; O2SAT 93–99
[2020-11-26] MEDS: morphine 4 mg/mL SDV 1 mL 2 MG IVP ×2 (03:05→05:50)
[2020-11-26 05:03] LABS: Alanine Aminotransferase 11 U/L (0-33); Albumin Level 3.6 g/dL (3.5-5.2); Alkaline Phosphatase 76 IU/L (35-105); Anion Gap 8.5 (5-19); Aspartate Amino Transferase 9 U/L (0-32); Blood Urea Nitrogen 10 mg/dL (8-23); Calcium 10.2 mg/dL (8.5-10.5); Chloride 85 mmol/L (98-107); Globulin 2.6 g/dL (1.3-4.6); Glucose 102 mg/dL (65-115); Osmolality Calculated 285 mOsm/kg (285-295); Potassium 3.5 mmol/L (3.5-5.1); Sodium 138 mmol/L (136-145); Total Bilirubin 1.2 mg/dL (0.15-1.2); Total Protein 6.2 g/dL (6.6-8.7)
[2020-11-26 05:20] LABS: Carbon Dioxide 48 mmol/L (22-29)
[2020-11-26 06:58] LABS: Glucose Point of Care 111 mg/dL (70-110)
[2020-11-26] MEDS: budesonide 0.5 mg/2 mL Neb INHALATION (09:16)
[2020-11-26] MEDS: ipratropium-albuterol 3 mL Neb INHALATION ×2 (09:16→14:39)
[2020-11-26] MEDS: carvedilol 6.25 mg Tablet PO (09:37)
[2020-11-26] MEDS: BuSPIRONE 10 mg Tablet PO (09:37)
[2020-11-26] MEDS: predniSONE 20 mg Tablet 40 MG PO (09:37)
[2020-11-26] MEDS: pantoprazole DR 40 mg Tablet PO (09:38)
[2020-11-26] MEDS: losartan 50 mg Tablet 150 MG PO (09:38)
[2020-11-26] MEDS: metOLazone 5 MG Tablet 2.5 MG PO (09:39)
[2020-11-26] MEDS: atorvastatin 40 mg Tablet 20 MG PO (09:39)
[2020-11-26] MEDS: FUROsemide 40 mg Tablet PO (09:39)
[2020-11-26] MEDS: clopidogrel 75 mg Tablet PO (09:41)
[2020-11-26] MEDS: duloxetine 30 mg Capsule PO (09:41)
[2020-11-26] MEDS: potassium chloride oral liq 20 mEq/15 mL UDC PO (09:41)
[2020-11-26] MEDS: sucralfate 1 gm Tablet PO (09:42)
--- NOTE | 2020-11-26 11:15 | PC.SOCIAL ---
*IMM UPDATE* Gave patient IMM update, provided her copy of page 2. Verbalized understanding. 11/26/20 @ 1049 Initialed, dated, timed and placed in chart.
[2020-11-26 11:30] LABS: Glucose Point of Care 190 mg/dL (70-110)
--- NOTE | 2020-11-26 12:37 | PC.CHAP ---
Pastoral Care Encounter/Spiritual Assessment Type of Contact [x] Declined barber shop manager visit [] Patient/Family/Request visit [] Outpatient visit [] Follow-up visit [] Physician referral [] Code/Alert [] Routine visit [] Staff referral [] Actively dying [] Patient sleeping [] Family support [] [] Out of room [] Palliative care [] [] Receiving care in room [] Pre-surgical visit [] Trauma [] Long length of stay [] ICU visit [] Other: Relational/Emotional Strength [] Patient feels connected with others/family/visitors/staff [] Distress [] Loneliness/isolation [] Abandonment Spirituality of Patient [] Person of Maria E [] Attends Quaker of their Maria E [] Believes in Prayer [] Reads Bible or Orthodoxy materials [] There are Spiritual issues to be addressed Police Stenographer Interventions [] Prayer [] Active listening [] Non-anxious presence [] Spiritual/emotional support [] Crisis/trauma care [] Spiritual counseling [] Bereavement support [] Provided bereavement packet [] Provided Bible/devotional materials [] Provided toy/stuffed animal, coloring book to patient or family member [] Provided Communion [] Anointing/[place] [] Salvation [] Completed spiritual assessment [] Other: Impact on Illness or Injury [] Angry [] Fearful [] Anxious [] Often cries [] Exhaustion [] Unable to work [] Unable to attend mu-ism [] Unable to walk/stand [] Unable to read [] Unable to drive [] Unable to eat/drink [] Unable to sleep [] Unable to be with family [] Patient intubated [] Other: Summary Time spent with patient
--- NOTE | 2020-11-26 12:38 | PM.DCS ---
Discharge Providers Date of Admission: 11/19/20 14:14 Date of Discharge: November 26, 2020 Attending Provider at Admission: Riky Angeles MD Attending Provider at Discharge: Riky Angeles MD Primary Care Provider: Nazia Jha Diagnoses at Discharge Discharge Diagnosis (1) Torsades de pointes: Status: Acute (2) Shortness of breath: Status: Acute (3) Acute HFrEF (heart failure with reduced ejection fraction): Status: Acute (4) Takotsubo cardiomyopathy: Status: Acute (5) COPD (chronic obstructive pulmonary disease): Status: Acute (6) Diarrhea: Status: Acute (7) Diabetes: Status: Acute (8) Hypertension: Status: Acute Reason for Visit Reason for Visit: SOB, LEG SWELLING, ABD PAIN Hospital Course Hospital Course Lauren Jose is a 75 year old female with past medical history of COPD, chronic oxygen needs with 2 L and BiPAP at night, type diabetes mellitus, hypertension, GERD, CHF with EF of 30 to 35%, CAD with last cardiac catheterization in August 2019 which revealed patent coronaries.ECHO showed severely reduced EF with apical akinesis and hyperdynamic basal segments consistent with Takotsubo cardiomyopathy with EF of 30-35%. She was last admitted in the hospital in August 2020 when she was found to be in RO and her diuretics were stopped on that discharge with advised to follow-up with cardiology and primary care provider. History taken over the phone by patient's daughter and with patient somewhat as she is on BiPAP. Patient states she has been having difficulty in breathing getting worse for last 1 week with swelling in her lower limbs getting worse for over 2 to 3 weeks. Patient sleeps in hospital bed and has been needing more propping up position for last 2 to 3 weeks. She has been having chronic cough with expectoration which has not changed. She is also complaining of abdominal distention getting worse for over couple of weeks. Appetite has been poor for last 1 week. Denies any fever,: Sick contact, headache, chest pain, palpitations. As per patient and patient's daughter she has been having on and off diarrhea which has been going on for last couple of months for which she had EGD and colonoscopy with Dr. Zhou as an outpatient and was found to have mild gastritis on EGD with a normal colonoscopy. Blood work in the ER showed a white count 9.6, hemoglobin of 11.5, RDW of 15.3, platelet count of 409, ABG showing a pH of 7.39 with PCO2 of 65, PO2 of 119, BMP with sodium of 144, potassium 3.5, carbon dioxide 33, creatinine of 0.3 UA negative for any signs of infection. Her last echocardiogram done in July 2020 showed EF of 25 to 30% with grade 1 diastolic dysfunction with apical akinesis consistent with Takotsubo cardiomyopathy with mildly reduced right ventricular functions mild aortic stenosis. On review of medication list it was seen that patient was taken off diuretic 2 to 3 months ago because of acute kidney injury. It seems patient has not been restarted on the diuretic since then. Patient was admitted to the hospital due to shortness of breath most likely because of exacerbation of congestive heart failure started on IV diuretics. Pneumonia was ruled out. COVID-19 was ruled out as well. Patient responded well to the treatment and overall by the time of discharge she was 12 L negative. Her hospitalization was complicated by her developing torsades on first night of admission for which she required 1 cycle of CPR and regained ROSC. Post that her magnesium was maintained around 3 and potassium around 4. Medical reconciliation was done. She responded well to the treatment and has been on minimal oxygen requirement for last 48 to 72 hours. She worked appropriate with physical therapy. She is been discharged in hemodynamically stable condition. For safe discharge planning options of SNF versus home health were discussed with patient and family. Patient stated she would like to go to SNF to regain some strength. Physical Exam Narrative: EXAM NARRATIVE: General: No acute distress, AO x3, 3 L nasal cannula saturating 96%. HEENT: PERRLA, pupils bilaterally equal and reactive Chest: Normal vesicular breath sounds, fine crackles bilaterally up to mid lung, right more than left, equal good air entry bilaterally CVS: S1-S2 regular, soft pansystolic murmur at apex, no tachycardia, no gallops, no rubs Abdomen: Soft, distended, nontender, no organomegaly, bowel sounds present Neuro: No focal deficits, no facial deformity, AO x3, power 5/5 in all limbs Urinary Catheter Management^: Dumont: Cath Placed During This Visit: yes, but has since been removed by the nurse Reason for Continuing Indwelling Catheter: Decision to DC Catheter Urinary Catheter Date of Insertion: 11/19/20 Urinary Catheter Time of Insertion: 14:59 Date Urinary Catheter Removed: 11/23/20 Time Urinary Catheter Discontinued: 17:30 Discharge Data Data Completed and Pending: Completed Studies During Hospitalization Category Date Time Status CT angio chest PE protcl [id number] Urge nt Cat Scan 11/19/20 17:50 Completed XR chest 1V wai ble [id number] Routine Exams 11/20/20 04:23 Completed XR chest 1V wai ble [id number] Routine Exams 11/22/20 06:00 Completed XR chest 1V wai ble [id number] Stat Exams 11/19/20 12:25 Completed CV echo complete* [id number] Routine Ultrasound 11/20/20 12:44 [place] [id number] Urgent Ultrasound 11/20/20 17:50 Completed Pending at discharge Category Date Time Status Blood Culture Sta t Lab 11/19/20 14:25 Results Labs from last 24 hours 11/26/20 11/26/20 11/26/20 11:25 06:51 02:46 Sodium 138 Potassium 3.5 Chloride 85 L Carbon Dioxide 48 H* Anion Gap 8.5 BUN 10 Creatinine 0.5 GFR Calculation Not Reportable Glucose 102 POC Glucose 190 H 111 H Calculated Osmolal ity 285 Calcium 10.2 Total Bilirubin 1.2 AST 9 ALT 11 Alkaline Phosphata se 76 Total Protein 6.2 L Albumin 3.6 Globulin 2.6 11/25/20 11/25/20 21:10 16:15 Sodium Potassium Chloride Carbon Dioxide Anion Gap BUN Creatinine GFR Calculation Glucose POC Glucose 219 H 201 H Calculated Osmolal ity Calcium Total Bilirubin AST ALT Alkaline Phosphata se Total Protein Albumin Globulin Vitals: Last Vital Signs Temp 98 F 11/26/20 04:00 Pulse 52 L 11/26/20 11:23 Resp 20 H 11/26/20 11:23 BP 126/73 11/26/20 11:23 Pulse Ox 96 11/26/20 11:23 Discharge Plan Discharge Patient Disposition: Xfer SNF Condition: Stable Prescriptions: New losartan 50 mg Tablet 150 mg PO DAILY@0800 Qty: 90 RF: 0 furosemide 40 mg Tablet 40 mg PO DAILY@0800 Qty: 30 RF: 0 carvedilol 6.25 mg Tablet 6.25 mg PO Q12H Qty: 60 RF: 0 trazodone 150 mg Tablet 75 mg PO BEDTIME PRN (Reason: anxiety) Qty: 30 RF: 0 buspirone 10 mg Tablet 10 mg PO BID Qty: 60 RF: 0 duloxetine 30 mg Capsule,Delayed Release(Dr/Ec) 30 mg PO DAILY Qty: 30 RF: 0 Continued trazodone 150 mg tablet 150 mg PO BEDTIME@1999 PRN (Reason: Sleep) RF: 0 clopidogrel [Plavix] 75 mg tablet 75 mg PO DAILY@08 RF: 0 Hold Instructions: Resume on 10/29/20. atorvastatin [Lipitor] 20 mg tablet 20 mg PO DAILY@0800 RF: 0 esomeprazole magnesium 40 mg capsule,delayed release(DR/EC) 40 mg PO DAILY@0800 RF: 0 metformin 1,000 mg tablet 1,000 mg PO BID@ RF: 0 albuterol sulfate [ProAir HFA] 90 mcg/actuation HFA aerosol inhaler 2 puff inhalation Q6H PRN (Reason: Shortness Of Breath) RF: 0 ondansetron HCl [Zofran] 4 mg tablet 4 mg PO Q6H PRN (Reason: nausea and vomiting) Qty: 20 RF: 0 Anoro Ellipta 62.5-25 mcg/actuation Blister With Device 1 inh INHALATION BID@ RF: 0 acetaminophen [Tylenol] 325 mg Tablet 325 - 650 mg PO Q6H PRN (Reason: Pain) RF: 0 metolazone 2.5 mg tablet 2.5 mg PO DAILY@08 RF: 0 Hold Instructions: Resume on 08/31/20. Please ask your primary care provider to monitor your electrolytes and kidney function and adjust your medications accordingly. losartan 50 mg tablet 50 mg PO DAILY@0800 RF: 0 sucralfate 1 gram tablet 1 g PO BID@08,1999 RF: 0 pantoprazole 40 mg tablet,delayed release (DR/EC) 40 mg PO DAILY@0800 RF: 0 hydroxyzine HCl 25 mg tablet 25 mg PO TID PRN (Reason: Anxiety) RF: 0 Januvia 50 mg tablet 50 mg PO DAILY@0800 RF: 0 Discontinued buspirone 15 mg tablet 15 mg PO BID@ RF: 0 duloxetine 60 mg Capsule,Delayed Release(Dr/Ec) 60 mg PO DAILY@0800 RF: 0 pregabalin [Lyrica] 200 mg capsule 100 mg PO TID@08,14,20 RF: 0 Coreg 3.125 mg tablet 3.125 mg PO Q12H RF: 0 Discharge Orders: Discharge Order (Routine); Ordered 11/26/20 Ordered By: Riky Angeles Referrals: Stacey Muñoz MD [Physician] - 1 month Nazia Jha PA [Primary Care Provider] - 4-7 days Discharge Diet: Cardiac and Soft Mechanical Discharge Activity: Resume usual activity and Increase activity as tolerated Patient Instructions: Opioid Safety Activity Restrictions/Additional Instructions: Antihypertensives and psych medications have been adjusted. Antihypertensives have been trended up. Psych medications have been decreased because of torsades during hospitalization. Please follow-up with the primary care provider within next 4 to 7 days. Discharge Attestations Time Spent in Discharge Care*: greater than 30 min Specific Discharge Activities: educating patient, educating and/or supporting family/caregiver, discussing with assistant case manager/social workers/dc planners, documenting/other paperwork and evaluating patient/reviewing data Status at Discharge: Cognitive status at discharge: cognitively intact, Behavioral status at discharge: cooperative, Functional status at discharge: other assisted ambulation Overall status at discharge: patient is back to baseline Quality Metrics Clinical Quality Measures During this hospital stay, did patient experience: None Coding Level of Care Code Acute Chg FW DC note Diagnoses Torsades de pointes I47.2 Shortness of breath R06.02 Acute HFrEF (heart failure with reduced ejection fraction) I50.21 Takotsubo cardiomyopathy I51.81 COPD (chronic obstructive pulmonary disease) J44.9 Diarrhea R19.7 Diabetes E11.9 Hypertension I10
[2020-11-26] MEDS: acetaminophen 325 mg Tablet 650 MG PO (12:49)
[2020-11-26 15:38] LABS: SARS Covid-2 Antigen Negative (Negative)
--- NOTE | 2020-11-26 16:56 | PC.NURSE ---
Pt discharged back to [place]. Pts IV removed no redness or swelling noted. Pts discharge instructions given along with prescriptions and follow up appointments. Pt had no c/o pain or discomfort at the time of discharge. Pt transferred out via wheelchair accompanied by staff.
== END 2020-11-26 16:55 | disposition skilled nursing facility (03) | DRG 292 ==
LOC: ER 15:16 → ICU 18:16 → CSU 11-22 14:32
PROVIDERS: Internal Medicine; Admitting Provider Student in an Organized Health Care Education/Training Program; Emergency Provider Family Medicine; PCP Physician Assistant; Visit Provider Student in an Organized Health Care Education/Training Program
DX: I11.0 Hypertensive heart disease with heart failure (principal); E87.2 Acidosis; I47.2 Ventricular tachycardia; I50.23 Acute on chronic systolic (congestive) heart failure; J44.9 Chronic obstructive pulmonary disease, unspecified; Z99.81 Dependence on supplemental oxygen; E11.9 Type 2 diabetes mellitus without complications; K21.9 Gastro-esophageal reflux disease without esophagitis; I25.10 Atherosclerotic heart disease of native coronary artery without angina pectoris; K29.70 Gastritis, unspecified, without bleeding; I35.0 Nonrheumatic aortic (valve) stenosis; G56.03 Carpal tunnel syndrome, bilateral upper limbs; G89.29 Other chronic pain; Z86.73 Personal history of transient ischemic attack (TIA), and cerebral infarction without residual deficits; F41.8 Other specified anxiety disorders; I25.2 Old myocardial infarction; Z96.659 Presence of unspecified artificial knee joint; F17.220 Nicotine dependence, chewing tobacco, uncomplicated; R19.7 Diarrhea, unspecified; Z79.84 Long term (current) use of oral hypoglycemic drugs; Z79.02 Long term (current) use of antithrombotics/antiplatelets; I42.0 Dilated cardiomyopathy
CPT/HCPCS: 36415; 36416; 36600; 51702; 71045; 71275; 80048; 80051; 80053; 80061; 80202; 81001; 82330; 82436; 82805; 82962; 83540; 83550; 83735; 83880; 84100; 84133; 84145; 84300; 84443; 84484; 85025; 85378; 87040; 87205; 87426; 87449; 87635; 87641; 93005; 93306; 93970; 94640; 94660; 94664; 96372; 96374; 97110; 97116; 97161; 97166; 97530; 97535; 99285; 99291; C9113; J0456; J1650; J1815; J1940; J2060; J2270; J2543; J2920; J2930; J3370; J3475; J3480; J3490; J7050; J7512; J7626; Q9967

== ENCOUNTER 2020-12-13 15:09 | Inpatient (IN) | payer MEDICARE, MEDICAID, SELFPAY ==
[2020-12-13 15:39] VITALS: BP 164/66; PULSE 68; RESP 16; TEMP 36.6; O2SAT 96; BMI 41.5
--- NOTE | 2020-12-13 17:02 | ECG_ITS ---
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 Measurements Intervals [place] Rate: 59 P: 82 AL: 234 QRS: -1 QRSD: 118 T: 129 QT: 436 QTc: 435 Interpretive Statements SINUS BRADYCARDIA WITH SINUS ARRHYTHMIA WITH FIRST DEGREE AV BLOCK SEPTAL MYOCARDIAL INFARCTION , OF INDETERMINATE AGE [40+ ms Q WAVE IN V1/V2] MODERATE T-WAVE ABNORMALITY, CONSIDER ANTEROLATERAL ISCHEMIA [-0.1+ mV T WAVE IN V3-V6] Compared to ECG 11/20/2020 05:54:28 First degree AV block now present Myocardial infarct finding now present T-wave abnormality still present Possible ischemia still present Electronically Signed On 12-13-2020 19:20:05 CDT by Brenden Chowdhury M.D. [id number]
--- NOTE | 2020-12-13 17:02 | XRR_ITS ---
PROCEDURE INFORMATION: Exam: XR Chest Exam date and time: 12/13/2020 5:03 PM Age: 75 years old Clinical indication: Cough; Additional info: Dyspnea/cough TECHNIQUE: Imaging protocol: XR of the chest. Views: 1 view. COMPARISON: CR XR chest 1V portable [id number] 11/20/2020 4:18 AM FINDINGS: Tubes, catheters and devices: Stable pain management/neurostimulator device. Lungs: Unremarkable. No consolidation. Pleural spaces: Unremarkable. No pleural effusion. No pneumothorax. Heart/Mediastinum: Borderline cardiomegaly. Vasculature: Calcification of the thoracic aorta and/or great vessels consistent with atherosclerotic vessel disease. Bones/joints: Moderate thoracic spondylosis. XR/XR chest 1V portable [id number] IMPRESSION: Borderline cardiomegaly.
[2020-12-13 17:49] LABS: Basophils # 0.1 10^3/uL (0.0-0.1); Basophils % 0.7 %; Eosinophils # 0.2 10^3/uL (0.0-0.8); Eosinophils % 2.1 %; Hematocrit 38.6 % (37.0-47.0); Hemoglobin 11.7 g/dL (11.5-15.3); Lymphocytes # 2.4 10^3/uL (0.8-4.8); Lymphocytes % 27.5 %; Mean Corpuscular HGB Conc 30.3 g/dL (30.0-36.0); Mean Corpuscular Hemoglobin 24.5 pg (28.0-34.0); Mean Corpuscular Volume 80.8 fL (81-99); Mean Platelet Volume 9.7 fL (7.4-10.4); Monocytes # 0.7 10^3/uL (0.2-0.9); Monocytes % 7.5 %; Neutrophils # 5.48 10^3/uL (1.8-7.7); Neutrophils % 61.7 %; Nucleated Red Blood Cells % 0 %; Platelet Count 260 10^3/cmm (130-400); Red Blood Count 4.78 10^6/uL (4.1-5.3); Red Cell Distribution Width 15.8 % (12.1-15.1); White Blood Count 8.9 10^3/uL (4.0-10.0)
[2020-12-13 18:07] LABS: Alanine Aminotransferase 12 U/L (0-33); Albumin Level 4.4 g/dL (3.5-5.2); Alkaline Phosphatase 124 IU/L (35-105); Aspartate Amino Transferase 11 U/L (0-32); Blood Urea Nitrogen 26 mg/dL (8-23); Carbon Dioxide 30 mmol/L (22-29); Chloride 95 mmol/L (98-107); Creatinine Clr Calc Pharmacy 73.9084; Globulin 2.8 g/dL (1.3-4.6); Glucose 115 mg/dL (65-115); Osmolality Calculated 292 mOsm/kg (285-295); Sodium 138 mmol/L (136-145); Total Bilirubin 0.8 mg/dL (0.15-1.2); Total Protein 7.2 g/dL (6.6-8.7)
[2020-12-13 18:10] LABS: Troponin(5th) Baseline 37 ng/L (0-10)
[2020-12-13 18:12] LABS: Magnesium 0.9 mg/dL (1.7-2.3)
[2020-12-13 18:29] VITALS: PULSE 68; RESP 24; O2SAT 94
[2020-12-13 18:33] VITALS: BP 168/93; PULSE 67; RESP 18; O2SAT 96
[2020-12-13] MEDS: magnesium sulfate premix 2 GM/50 ML PIGGYBACK IV (18:43)
--- NOTE | 2020-12-13 19:10 | ED_ITS ---
HPI - General Adult General: Chief complaint: General Medical Stated complaint: recheck, abnormal labs Time Seen by Provider: 12/13/20 18:20 Source: patient Mode of arrival: ambulatory Limitations: no limitations History of Present Illness: HPI narrative: 75-year-old female who has a history of torsades along with hypomagnesia. Patient states she saw her PCP yesterday and had a magnesium level drawn and it was low when he had formed to come to the ER. Her magnesium level here is 0.9. She had some generalized weakness. She denies any fever. Denies any pain. Denies any worsening improving factors. She has had no vomiting or diarrhea. Associated symptoms: Deny chest pain, dyspnea, headache(s), nausea, rash or vomiting Review of Systems Const: Denies: fever(s), chills, body aches or change in appetite Eyes: Denies: blurry vision or eye discomfort ENMT: Denies: throat pain or dental pain Card: Denies: chest pain Resp: Denies: dyspnea GI: Denies: abdominal pain, nausea, vomiting or diarrhea : Denies: dysuria Musc: Denies: neck pain or back pain Skin/Breast: Denies: rash Neuro: Denies: headache(s) Psych: Denies: depression Lavelle/Lymph: Denies: easy bruising All/Imm: Denies: urticaria PFSH ED PFSH: Medical History Acute HFrEF (heart failure with reduced ejection fraction) Blood in stool Cardiomyopathy Carpal tunnel syndrome on both sides Chronic radicular low back pain COPD (chronic obstructive pulmonary disease) COPD (chronic obstructive pulmonary disease) CVA (cerebral vascular accident) Depression with anxiety Diabetes Diabetes Diarrhea Encounter for long-term use of opiate analgesic Gastritis GERD (gastroesophageal reflux disease) HFrEF (heart failure with reduced ejection fraction) History of cerebrovascular accident History of CHF (congestive heart failure) History of GI bleed Hypertension Hypertension Low back pain Non-ST elevation [place] (NSTEMI) Opioid contract exists Smokeless tobacco use Stress-induced cardiomyopathy Takotsubo cardiomyopathy Torsades de pointes Surgical History H/O knee surgery History of colonoscopy (~11/2020) History of esophagogastroduodenoscopy (EGD) (~11/2020) History of knee replacement History of lumbar surgery Also history of spinal cord stimulator, currently not functioning History of shoulder surgery Family History Other CAD (coronary artery disease) Hypertension Stroke Denies family history of Anesthesia complication Bleeding disorder Social History Smoking and tobacco status: current every day smoker smokeless tobacco Smokeless tobacco details: also smoked cigarrettes quit 10 years. 60 pack years Alcohol intake: never Physical Exam Const: COMMON NORMALS: no acute distress, patient oriented x3 and healthy appe aring HENMT: COMMON NORMALS: normocephalic and atraumatic HEAD & SCALP: normocephalic and atraumatic Eye: COMMON NORMALS: Equal, round and reactive pupils present and EOMs intact bilaterally PUPIL: Yes Equal, round and reactive pupils present Neck/C-Spine: COMMON NORMALS: full ROM and supple Chest: COMMONS NORMALS: normal inspection of the chest and normal palpation of entire chest wall Resp: COMMON NORMALS: normal respiratory effort, No retractions, No use of accessory muscles and clear to auscultation bilaterally AUSCULTATION: clear to auscultation bilaterally Cardio: COMMON NORMALS: regular rate, regular rhythm and No murmurs present (Cardio) RATE: regular rate RHYTHM: regular rhythm GI: COMMON NORMALS: Normal to inspection, nondistended, normoactive bowel sounds present, Soft to palpation, non-tender and no masses PALPATION: Yes Soft to palpation Extremity: COMMON NORMALS: normal to inspection and full ROM Neuro: COMMON NORMALS: patient oriented x3, moves all extremities and no focal motor deficits Psych: COMMON NORMALS: mental status grossly normal, Normal thought process present and cooperative THOUGHT PROCESS: Normal thought process present Skin: COMMON NORMALS: no rashes or lesions noted and no wounds GENERAL SKIN EXAM: no rashes or lesions noted Course Vital Signs: Vital signs: Vital Signs Temperature 97.9 F 12/13/20 15:39 Pulse Rate 67 12/13/20 18:33 Respiratory Rate 18 12/13/20 18:33 Blood Pressure 168/93 12/13/20 18:33 Pulse Oximetry 96 12/13/20 18:33 MDM - General Adult MDM Narrative: Medical decision making narrative: Patient presents with hypomagnesia. We will give her 2 g here. Patient likely needs some med adjustment spoke to hospitalist will admit for observation. She has no EKG changes. Lab Data: Labs: Lab Results 12/13/20 12/13/20 12/13/20 Range/Units 17:40 17:40 17:40 WBC 8.9 (4.0-10.0) 10^3/ uL RBC 4.78 (4.1-5.3) 10^6/u L Hgb 11.7 (11.5-15.3) g/dL Hct 38.6 (37.0-47.0) % MCV 80.8 L (81-99) fL MCH 24.5 L (28.0-34.0) pg MCHC 30.3 (30.0-36.0) g/dL RDW 15.8 H (12.1-15.1) % Plt Count 260 (130-400) 10^3/c mm MPV 9.7 (7.4-10.4) fL Neut % (Auto) 61.7 % Lymph % (Auto) 27.5 % [place] % (Auto) 7.5 % Eos % (Auto) 2.1 % Baso % (Auto) 0.7 % Neut # (Auto) 5.48 (1.8-7.7) 10^3/u L Lymph # (Auto) 2.4 (0.8-4.8) 10^3/u L [place] # (Auto) 0.7 (0.2-0.9) 10^3/u L Eos # (Auto) 0.2 (0.0-0.8) 10^3/u L Baso # (Auto) 0.1 (0.0-0.1) 10^3/u L Nucleated RBC % (a uto) 0 % Nucleated RBCs # 0.0 /100WBC Sodium 138 (136-145) mmol/L Potassium 3.0 L (3.5-5.1) mmol/L Chloride 95 L (98-107) mmol/L Carbon Dioxide 30 H (22-29) mmol/L Anion Gap 16.0 (5-19) BUN 26 H (8-23) mg/dL Creatinine 1.0 H (0.5-0.9) mg/dL GFR Calculation Not Reportable Glucose 115 (65-115) mg/dL Calculated Osmolal ity 292 (285-295) mOsm/k g Calcium 9.0 (8.5-10.5) mg/dL Magnesium 0.9 L (1.7-2.3) mg/dL Total Bilirubin 0.8 (0.15-1.2) mg/dL AST 11 (0-32) U/L ALT 12 (0-33) U/L Alkaline Phosphata se 124 H (35-105) IU/L Troponin T Baselin e 37 H (0-10) ng/L Total Protein 7.2 (6.6-8.7) g/dL Albumin 4.4 (3.5-5.2) g/dL Globulin 2.8 (1.3-4.6) g/dL EKG Data^: EKG 1: Attestation: I personally reviewed and interpreted this EKG as follows: EKG interpretation date: 12/13/20 EKG interpretation time: 18:59 Interpretation: sinus oscar hr [address] elevation qrs 118 qtc 436 Computer generated interpretation: Chest X-Ray 12/13/20 17:02 IMPRESSION: Borderline cardiomegaly. Discharge Plan Discharge Patient Disposition: Placed in Observation Clinical Impression: Hypomagnesemia Condition: Stable Prescriptions: No Action trazodone 150 mg tablet 150 mg PO BEDTIME@2000 PRN (Reason: Sleep) RF: 0 clopidogrel [Plavix] 75 mg tablet 75 mg PO DAILY@08 RF: 0 Hold Instructions: Resume on 10/29/20. atorvastatin [Lipitor] 20 mg tablet 20 mg PO DAILY@0800 RF: 0 esomeprazole magnesium 40 mg capsule,delayed release(DR/EC) 40 mg PO DAILY@0800 RF: 0 metformin 1,000 mg tablet 1,000 mg PO BID@,20 RF: 0 albuterol sulfate [ProAir HFA] 90 mcg/actuation HFA aerosol inhaler 2 puff inhalation Q6H PRN (Reason: Shortness Of Breath) RF: 0 ondansetron HCl [Zofran] 4 mg tablet 4 mg PO Q6H PRN (Reason: nausea and vomiting) Qty: 20 RF: 0 Anoro Ellipta 62.5-25 mcg/actuation Blister With Device 1 inh INHALATION BID@,20 RF: 0 acetaminophen [Tylenol] 325 mg Tablet 325 - 650 mg PO Q6H PRN (Reason: Pain) RF: 0 metolazone 2.5 mg tablet 2.5 mg PO DAILY@08 RF: 0 Hold Instructions: Resume on 08/31/20. Please ask your primary care provider to monitor your electrolytes and kidney function and adjust your medications accordingly. losartan 50 mg tablet 50 mg PO DAILY@0800 RF: 0 sucralfate 1 gram tablet 1 g PO BID@0800,2000 RF: 0 pantoprazole 40 mg tablet,delayed release (DR/EC) 40 mg PO DAILY@0800 RF: 0 hydroxyzine HCl 25 mg tablet 25 mg PO TID PRN (Reason: Anxiety) RF: 0 Januvia 50 mg tablet 50 mg PO DAILY@0800 RF: 0 losartan 50 mg Tablet 150 mg PO DAILY@0800 Qty: 90 RF: 0 furosemide 40 mg Tablet 40 mg PO DAILY@0800 Qty: 30 RF: 0 carvedilol 6.25 mg Tablet 6.25 mg PO Q12H Qty: 60 RF: 0 trazodone 150 mg Tablet 75 mg PO BEDTIME PRN (Reason: anxiety) Qty: 30 RF: 0 buspirone 10 mg Tablet 10 mg PO BID Qty: 60 RF: 0 duloxetine 30 mg Capsule,Delayed Release(Dr/Ec) 30 mg PO DAILY Qty: 30 RF: 0 Referrals: Nazia Jha PA [Primary Care Provider] - Coding Level of Care Code ED [facility] for [facility]a [employer]
[2020-12-13 19:49] VITALS: BP 152/64; PULSE 66; RESP 23; O2SAT 91
[2020-12-13 20:01] VITALS: PULSE 63; RESP 19; O2SAT 94
[2020-12-13 20:14] LABS: Troponin 5 2HR 35.39 ng/L (0-10)
[2020-12-13 20:17] LABS: Troponin 5 2HR Delta -1.61 ABS# (0-10)
[2020-12-13 20:48] VITALS: BP 156/78; PULSE 69; RESP 18; TEMP 36.3; O2SAT 93
[2020-12-13 21:33] LABS: Glucose Point of Care 172 mg/dL (70-110)
--- NOTE | 2020-12-13 23:02 | ECG_ITS ---
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 Measurements Intervals [place] Rate: 72 P: 17 CT: 254 QRS: -15 QRSD: 119 T: 164 QT: 415 QTc: 454 Interpretive Statements SINUS RHYTHM WITH FIRST DEGREE AV BLOCK SEPTAL MYOCARDIAL INFARCTION [40+ ms Q WAVE IN V1/V2], OF INDETERMINATE AGE MODERATE T-WAVE ABNORMALITY, CONSIDER ANTERIOR ISCHEMIA [-0.1+ mV T WAVE IN V3/V4] Compared to ECG 12/13/2020 18:59:11 Sinus bradycardia no longer present Sinus arrhythmia no longer present Myocardial infarct finding still present T-wave abnormality still present Possible ischemia still present Electronically Signed On 12-19-2020 7:11:23 CDT by Georgia Brewer M.D. [id number]
--- NOTE | 2020-12-13 23:22 | P.HP_ITS ---
Providers/Chief Complaint Admitting Physician: Greer Ascencio MD Primary Care Provider: Nazia Jha Chief Complaint: recheck, abnormal labs History of Present Illness Lauren Jose is a 75 year old female with past medical history of COPD, chronic oxygen needs with 2 L and BiPAP at night, type diabetes mellitus, hypertension, GERD, CHF with EF of 30 to 35%, CAD, Takotsubo cardiomyopathy with EF of 30-35%. Recent hospital admissions in Aug 2020 and November 2020 for acute on chronic CHF exacerbation, most recently in the setting of having not been on diuretics in view of OR. Recently discharged on 11/26/20 to SNF after being treated for CHF exacerbation. Pneumonia was ruled out. COVID-19 was ruled out as well. Her hospitalization was complicated by her developing torsades on first night of admission for which she required 1 cycle of CPR and regained ROSC. Post that her magnesium was maintained around 3 and potassium around 4. Buspirone and duloxetine doses were adjusted. She was discharged from SNF recently, followed up with her PCP as scheduled yesterday where electrolytes were checked, Mag reuslted at 0.9 and she was referred to the ER for replacement. Denies any current chest pain, dyspnea, palpitations. States orthopnea and LE edema are improved over last discharge and continue to improve since discharge from SNF. She uses 3lpm supplkemetal 02 intermittently through the day, currently saturating 93% on RA. CXR without infiltrates or edema. EKG with sinus bradycardia at 59bpm with 1st degree AV block. Troponin series with negative 2 hr delta. Electrolytes with mag 0.9 and K at 3.0, thus far received 2gm iv magnesium. ROS + chronic diarrhea for which she had EGD and colonoscopy with Dr. Zhou as an outpatient and was found to have mild gastritis on EGD with a normal colonoscopy. Review of Systems General: Reports: 10 or more systems reviewed and unremarkable except in HPI and below Const: Denies: fever(s), chills or body aches Eyes: Denies: change in vision, blurry vision or photophobia ENMT: Reports: hoarseness; Denies: throat pain, enlarged tonsils, odynophagia or nasal congestion Card: Denies: chest pain, palpitations, irregular heart rhythm, edema, swelling of feet/ankles, lightheadedness, pre-syncope, dyspnea on exertion or orthopnea Resp: Denies: dyspnea, productive cough, non-productive cough, wheezing, stridor, pain on inspiration, change in phlegm color, hemoptysis or chest congestion GI: Denies: abdominal pain, nausea, vomiting, hematemesis, coffee ground emesis, dysphagia, heartburn, diarrhea, constipation, GI cramping, change in stool character, hematochezia or melena : Denies: flank pain, difficulty voiding, dysuria, urinary frequency, urinary urgency, urinary hesitancy or hematuria Musc: Denies: neck pain, back pain, extremity pain, joint swelling, joint warmth or deformity Neuro: Denies: headache(s), numbness in extremities, weakness in extremities, sensory changes, difficulty walking, frequent falls, dizziness, vertigo, behavioral changes, Slurred speech present or seizure-like activity Psych: Denies: anxiety, depression, suicidal ideation or homicidal ideation Endo: Denies: polyuria, polydipsia, tired all the time, cold intolerance or hot flashes Lavelle/Lymph: Denies: easy bruising or easy bleeding Medications/Allergies Home Medications Medication Instructions Recorded Confirmed Last Taken Type atorvastatin 20 mg tablet 20 mg PO DAILY@79909/30/19 12/13/20 12/13/20 History clopidogrel 75 mg tablet 75 mg PO DAILY@09/30/19 12/13/20 12/13/20 History albuterol sulfate [ProAir HFA] 2 puff INHALATION Q6H PRN 06/11/20 12/13/20 10/23/20 08:00 History metformin 1,000 mg PO BID@06/11/20 12/13/20 12/13/20 History ondansetron HCl [Zofran] 4 mg PO Q6H PRN #20 tab 06/11/20 12/13/20 10/23/20 08:00 Rx Anoro Ellipta 1 inh INHALATION BID@07/23/20 12/13/20 10/23/20 08:00 History acetaminophen [Tylenol] 325 - 650 mg PO Q6H PRN 08/22/20 12/13/20 12/13/20 History metolazone 2.5 mg PO DAILY@08 08/22/20 12/13/20 12/13/20 History Januvia 50 mg PO DAILY@0800 11/19/20 12/13/20 12/13/20 History hydroxyzine HCl 25 mg PO TID PRN 11/19/20 12/13/20 Unknown History pantoprazole 40 mg PO DAILY@0800 11/19/20 12/13/20 12/13/20 History sucralfate 1 g PO BID@0800,199911/19/20 12/13/20 12/13/20 History carvedilol 6.25 mg PO Q12H #60 tab 11/26/20 12/13/20 12/13/20 Rx furosemide 40 mg PO DAILY@0800 #30 tab 11/26/20 12/13/20 12/13/20 Rx losartan 150 mg PO DAILY@0800 #90 tab 11/26/20 12/13/20 12/13/20 Rx trazodone 75 mg PO BEDTIME PRN #30 tab 11/26/20 12/13/20 12/12/20 Rx buspirone 10 mg PO BID@0800,199912/13/20 12/13/20 12/13/20 History duloxetine 30 mg PO DAILY@0800 12/13/20 12/13/20 12/13/20 History lansoprazole 30 mg PO DAILY@0800 12/13/20 12/13/20 12/13/20 History Allergies Allergy/AdvReac Type Severity Reaction Status Date / Time No Known Allergies Allergy Verified 12/13/20 15:43 PFSH Acute PFSH: Medical History Acute HFrEF (heart failure with reduced ejection fraction) Blood in stool Cardiomyopathy Carpal tunnel syndrome on both sides Chronic radicular low back pain COPD (chronic obstructive pulmonary disease) COPD (chronic obstructive pulmonary disease) CVA (cerebral vascular accident) Depression with anxiety Diabetes Diabetes Diarrhea Encounter for long-term use of opiate analgesic Gastritis GERD (gastroesophageal reflux disease) HFrEF (heart failure with reduced ejection fraction) History of cerebrovascular accident History of CHF (congestive heart failure) History of GI bleed Hypertension Hypertension Low back pain Non-ST elevation [place] (NSTEMI) Opioid contract exists Smokeless tobacco use Stress-induced cardiomyopathy Takotsubo cardiomyopathy Torsades de pointes Surgical History H/O knee surgery History of colonoscopy (~11/2020) History of esophagogastroduodenoscopy (EGD) (~11/2020) History of knee replacement History of lumbar surgery Also history of spinal cord stimulator, currently not functioning History of shoulder surgery Family History Other CAD (coronary artery disease) Hypertension Stroke Denies family history of Anesthesia complication Bleeding disorder Social History Smoking and tobacco status: current every day smoker smokeless tobacco Smokeless tobacco details: also smoked cigarrettes quit 10 years. 60 pack years Alcohol intake: never Vitals/I&O/Wt Last Vital Signs Temp 97.4 F L 12/13/20 20:48 Pulse 69 12/13/20 20:48 Resp 18 12/13/20 20:48 BP 156/78 12/13/20 20:48 Pulse Ox 93 12/13/20 20:48 12/13/20 12/13/20 12/14/20 14:59 22:59 06:59 Intake Total 50 / 50 Balance 50 / 50 Weight last 48 hrs Weight 93.44 kg Physical Exam Narrative: EXAM NARRATIVE: General: No acute distress, AO x3 HEENT: PERRLA, pupils bilaterally equal and reactive, pallors not present Chest: Normal vesicular breath sounds, no added sounds, equal good air entry bilaterally CVS: S1-S2 regular, no murmurs, no tachycardia, no gallops, no rubs Abdomen: Soft, nontender, no organomegaly, bowel sounds present Neuro: No focal deficits, no facial deformity, AO x3, power 5/5 in all limbs Extremities: 1+ B/L LE pitting edema Data : 12/13/20 17:40 12/13/20 17:40 A&P Assessment and plan (1) Hypomagnesemia: Repleted with 2gm iv magnesium in ER Repeat magnesium with am labs Status: Acute (2) Hypokalemia: K at 3.0, not yet repleted 80meq KCL ordered Replete K and mag adequately- previous admission complicated by torsades and resulting cardiac arrest in the setting of electrolyte abnormalities Status: Acute (3) Cardiomyopathy: last known EF 38% Non ischemic related to Takosubo cardiomyopathy Declined ICD placement at last visit Status: Acute Qualifiers: Cardiomyopathy type: dilated Qualified Code(s): I42.0 - Dilated cardiomyopathy (4) Chronic CHF (congestive heart failure): related to combined systolic and diastolic heart failure. Currently states that LE edema, orthopnea are better than at recent baseline check BNP Saturating well on RA, no signs of pulmonary edema Continue home dose of lasix 40 dialy and metlazone 2.5mg daily Status: Acute Qualifiers: Heart failure type: combined systolic and diastolic Qualified Code(s): I50.42 - Chronic combined systolic (congestive) and diastolic (congestive) heart failure Additional A&P Information DVT ppx: lovenox DNR/DNI Attestations Medical Necessity Statement*: less than 2 midnight anticipated for electrolyte replacement, monitoring of volume status and telemetry monitoring Coding Level of Care Code 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
[2020-12-14] VITALS (16 sets, daily range): BP systolic 122–155; BP diastolic 64–80; PULSE 48–89; RESP 16–19; TEMP 36.3–36.9; O2SAT 90–99
[2020-12-14 00:21] LABS: Troponin 5 6HR 28.97 ng/L (0-10)
[2020-12-14] MEDS: enoxaparin 40 mg/0.4 mL Syringe SUBCUT (01:10)
[2020-12-14] MEDS: carvedilol 6.25 mg Tablet PO ×2 (01:10→12:28)
[2020-12-14] MEDS: lidocaine 1% 5 ML in potassium chloride premix 100 ML 25 ML IV ×2 (01:26→05:58)
[2020-12-14] MEDS: ipratropium-albuterol 3 mL Neb INHALATION ×4 (03:16→20:42)
[2020-12-14 05:19] LABS: Alanine Aminotransferase 11 U/L (0-33); Albumin Level 3.9 g/dL (3.5-5.2); Alkaline Phosphatase 106 IU/L (35-105); Anion Gap 12.6 (5-19); Aspartate Amino Transferase 11 U/L (0-32); Blood Urea Nitrogen 25 mg/dL (8-23); Calcium 9.2 mg/dL (8.5-10.5); Carbon Dioxide 31 mmol/L (22-29); Chloride 100 mmol/L (98-107); Creatinine Clr Calc Pharmacy 92.3856; Globulin 2.8 g/dL (1.3-4.6); Glucose 139 mg/dL (65-115); Magnesium 1.5 mg/dL (1.7-2.3); NT Pro B Type Natriuretic Pept 403 pg/mL (0-125); Osmolality Calculated 297 mOsm/kg (285-295); Potassium 3.6 mmol/L (3.5-5.1); Sodium 140 mmol/L (136-145); Total Bilirubin 0.8 mg/dL (0.15-1.2); Total Protein 6.7 g/dL (6.6-8.7)
[2020-12-14 06:34] LABS: Glucose Point of Care 143 mg/dL (70-110)
[2020-12-14 07:09] LABS: Add Urine Microscopic? NO; Charge for UA Resulting for Rev
[2020-12-14 07:15] LABS: Bilirubin Urine Neg (Negative); Blood Urine Neg (Negative); Glucose Urine UA Norm (Normal); Ketones Urine Negative (Negative); Leukocyte Esterase Urine Negative (Negative); Nitrate Urine Negative (Negative); Protein Urine Neg (Negative); Specific Gravity, Urine 1.015 (1.005-1.030); Urine Appearance Clear (CLEAR); Urine Color Yellow (Yellow); Urobilinogen Urine Norm (Negative); pH Urine 5 (5-7)
[2020-12-14] MEDS: sucralfate 1 gm Tablet PO ×2 (09:20→20:37)
[2020-12-14] MEDS: clopidogrel 75 mg Tablet PO (09:20)
[2020-12-14] MEDS: FUROsemide 40 mg Tablet PO (09:20)
[2020-12-14] MEDS: losartan 50 mg Tablet 150 MG PO (09:20)
[2020-12-14] MEDS: duloxetine 30 mg Capsule PO (09:20)
[2020-12-14] MEDS: BuSPIRONE 10 mg Tablet PO ×2 (09:20→20:37)
[2020-12-14] MEDS: pantoprazole DR 40 mg Tablet PO (09:20)
[2020-12-14] MEDS: atorvastatin 40 mg Tablet 20 MG PO (09:21)
[2020-12-14] MEDS: acetaminophen 325 mg Tablet 650 MG PO ×2 (09:22→18:36)
[2020-12-14] MEDS: potassium chloride ER 20 mEq Tablet 40 MEQ PO (09:25)
[2020-12-14] MEDS: magnesium sulfate premix 4 GM/100 ML PREMIX IV (11:12)
[2020-12-14 11:30] LABS: Glucose Point of Care 149 mg/dL (70-110)
--- NOTE | 2020-12-14 12:26 | PC.CHAP ---
Pastoral Care Encounter/Spiritual Assessment Type of Contact [] Declined coat padder visit [] Patient/Family/Request visit [] Outpatient visit [] Follow-up visit [] Physician referral [] Code/Alert [xx] Routine visit [] Staff referral [] Actively dying [] Patient sleeping [] Family support [] [] Out of room [] Palliative care [] [] Receiving care in room [] Pre-surgical visit [] Trauma [] Long length of stay [] ICU visit [] Other: Relational/Emotional Strength [xx] Patient feels connected with others/family/visitors/staff [] Distress [] Loneliness/isolation [] Abandonment Spirituality of Patient [xx] Person of Maria E [] Attends Shinto of their Maria E [xx] Believes in Prayer [] Reads Bible or Roman Catholic materials [] There are Spiritual issues to be addressed Fundraising Assistant Interventions [xx] Prayer [xx] Active listening [xx] Non-anxious presence [] Spiritual/emotional support [] Crisis/trauma care [] Spiritual counseling [] Bereavement support [] Provided bereavement packet [] Provided Bible/devotional materials [] Provided toy/stuffed animal, coloring book to patient or family member [] Provided Communion [] Anointing/[place] [] Salvation [xx] Completed spiritual assessment [] Other: Impact on Illness or Injury [] Angry [] Fearful [] Anxious [] Often cries [] Exhaustion [] Unable to work [] Unable to attend yazdanism [] Unable to walk/stand [] Unable to read [] Unable to drive [] Unable to eat/drink [] Unable to sleep [] Unable to be with family [] Patient intubated [] Other: Summary Patient was pleasant bu did not feel like talking. She did want prayer, though. Time spent with patient 5 minutes
--- NOTE | 2020-12-14 14:45 | PM.PN ---
Subjective Subjective: Interval history: Patient was seen and examined this morning.No acute event overnight.Deny any SOB,orthopnea,PND,chest pain,has received 2 gm of I.V magnesium and has received I.V pottasium. Vitals/I&O/Wt Last Vital Signs Temp 97.8 F 12/14/20 12:00 Pulse 69 12/14/20 14:40 Resp 16 12/14/20 14:34 BP 147/65 12/14/20 12:00 Pulse Ox 95 12/14/20 14:34 12/13/20 12/14/20 12/14/20 22:59 06:59 14:59 Intake Total 50 / 50 155 / 205 1045 / 1045 Balance 50 / 50 155 / 205 1045 / 1045 Weight last 48 hrs Weight 93.44 kg Physical Exam Const: COMMON NORMALS: patient oriented x3 HENMT: COMMON NORMALS: normocephalic and atraumatic HEAD & SCALP: normocephalic and atraumatic Resp: COMMON NORMALS: normal respiratory effort and clear to auscultation bilaterally EFFORT & INSPECTION: Yes symmetric chest movement AUSCULTATION: clear to auscultation bilaterally Cardio: COMMON NORMALS: regular rate, regular rhythm, S1 normal heart sound present, S2 normal heart sound present, No gallops present (Cardio), No murmurs present (Cardio), No rub (Cardio) and Peripheral pulses 2+ throughout RATE: regular rate RHYTHM: regular rhythm HEART SOUNDS: S1 normal heart sound present and S2 normal heart sound present PERIPHERAL PULSES: Peripheral pulses 2+ throughout GI: COMMON NORMALS: Normal to inspection, nondistended, normoactive bowel sounds present, Soft to palpation, non-tender, No hepatosplenomegaly present and no masses AUSCULTATION: Yes normoactive bowel sounds PALPATION: Yes Soft to palpation and Yes No hepatosplenomegaly present RECTAL EXAM: deferred Extremity: COMMON NORMALS: no clubbing, cyanosis or edema and no pedal edema Neuro: COMMON NORMALS: patient oriented x3 Data : 12/13/20 17:40 12/14/20 04:35 A&P Assessment and plan (1) Hypomagnesemia: Likely 2/2 to diuretic use. So far she has received 6 mg I.V Magnesium Repeat magnesium Status: Acute (2) Hypokalemia: Admission Serum K :3 ---> 3.6 S/P 80meq KCL : Replete K and mag adequately- previous admission complicated by torsades and resulting cardiac arrest in the setting of electrolyte abnormalities Status: Acute (3) Cardiomyopathy: last known EF 38% Non ischemic related to Takosubo cardiomyopathy Declined ICD placement at last visit Status: Acute Qualifiers: Cardiomyopathy type: dilated Qualified Code(s): I42.0 - Dilated cardiomyopathy (4) Chronic CHF (congestive heart failure): Currently Compensated Continue lasix 40 dialy metlazone 2.5mg daily 30 mins prior to lasix Status: Acute Qualifiers: Heart failure type: combined systolic and diastolic Qualified Code(s): I50.42 - Chronic combined systolic (congestive) and diastolic (congestive) heart failure Additional A&P Information DVT ppx: lovenox DNR/DNI Attestations Medical Necessity Statement*: Patient needs to be in hospital for the replacement of severely depleted electrolytes. 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
[2020-12-14 17:09] LABS: Glucose Point of Care 150 mg/dL (70-110)
--- NOTE | 2020-12-14 18:47 | ECG_ITS ---
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 Measurements Intervals [place] Rate: 52 P: 97 OK: 232 QRS: 9 QRSD: 110 T: 106 QT: 473 QTc: 442 Interpretive Statements SINUS BRADYCARDIA WITH SINUS ARRHYTHMIA WITH FIRST DEGREE AV BLOCK MODERATE INTRAVENTRICULAR CONDUCTION DELAY [105+ ms QRS DURATION, 80+ ms Q/S IN V1/V2, NO Q AND 60+ ms R IN I/aVL/V5/V6] MODERATE T-WAVE ABNORMALITY, CONSIDER ANTEROLATERAL ISCHEMIA [-0.1+ mV T WAVE IN V3-V6] Compared to ECG 12/14/2020 00:29:08 Intraventricular conduction delay now present Sinus rhythm no longer present Myocardial infarct finding no longer present T-wave abnormality still present Possible ischemia still present Electronically Signed On 12-19-2020 6:58:39 CDT by Georgia Brewer M.D. [id number]
[2020-12-14] MEDS: nitroglycerin 0.4 mg sublingual Tablet SUBLINGUAL (18:58)
[2020-12-14 19:17] LABS: Magnesium 2.3 mg/dL (1.7-2.3)
[2020-12-14 20:16] LABS: Glucose Point of Care 124 mg/dL (70-110)
[2020-12-14] MEDS: trazodone 150 mg Tablet 75 MG PO (20:40)
[2020-12-15] VITALS (11 sets, daily range): BP systolic 123–153; BP diastolic 62–75; PULSE 50–62; RESP 14–20; TEMP 36.3–36.8; O2SAT 96–99
[2020-12-15] MEDS: enoxaparin 40 mg/0.4 mL Syringe SUBCUT (00:15)
[2020-12-15] MEDS: ipratropium-albuterol 3 mL Neb INHALATION ×2 (03:14→09:09)
[2020-12-15 05:47] LABS: Basophils # 0.1 10^3/uL (0.0-0.1); Basophils % 0.8 %; Eosinophils # 0.2 10^3/uL (0.0-0.8); Eosinophils % 3.6 %; Hematocrit 34.8 % (37.0-47.0); Hemoglobin 10.4 g/dL (11.5-15.3); Lymphocytes # 1.7 10^3/uL (0.8-4.8); Lymphocytes % 27.9 %; Mean Corpuscular HGB Conc 29.9 g/dL (30.0-36.0); Mean Corpuscular Hemoglobin 24.6 pg (28.0-34.0); Mean Corpuscular Volume 82.5 fL (81-99); Monocytes # 0.7 10^3/uL (0.2-0.9); Neutrophils # 3.45 10^3/uL (1.8-7.7); Neutrophils % 56.1 %; Nucleated Red Blood Cells % 0 %; Platelet Count 238 10^3/cmm (130-400); Red Blood Count 4.22 10^6/uL (4.1-5.3); White Blood Count 6.2 10^3/uL (4.0-10.0)
[2020-12-15 06:18] LABS: Anion Gap 12.1 (5-19); Blood Urea Nitrogen 23 mg/dL (8-23); Calcium 9.2 mg/dL (8.5-10.5); Carbon Dioxide 32 mmol/L (22-29); Chloride 101 mmol/L (98-107); Creatinine Clr Calc Pharmacy 92.3856; Glucose 137 mg/dL (65-115); Osmolality Calculated 298 mOsm/kg (285-295); Potassium 4.1 mmol/L (3.5-5.1); Sodium 141 mmol/L (136-145)
[2020-12-15 06:30] LABS: Glucose Point of Care 150 mg/dL (70-110)
[2020-12-15] MEDS: clopidogrel 75 mg Tablet PO (07:56)
[2020-12-15] MEDS: FUROsemide 40 mg Tablet PO (07:56)
[2020-12-15] MEDS: pantoprazole DR 40 mg Tablet PO (07:56)
[2020-12-15] MEDS: BuSPIRONE 10 mg Tablet PO (07:56)
[2020-12-15] MEDS: losartan 50 mg Tablet 150 MG PO (07:56)
[2020-12-15] MEDS: duloxetine 30 mg Capsule PO (07:56)
[2020-12-15] MEDS: sucralfate 1 gm Tablet PO (07:56)
[2020-12-15] MEDS: metOLazone 5 MG Tablet 2.5 MG PO (07:57)
[2020-12-15] MEDS: acetaminophen 325 mg Tablet 650 MG PO (07:57)
[2020-12-15] MEDS: atorvastatin 40 mg Tablet 20 MG PO (07:57)
[2020-12-15] MEDS: potassium chloride ER 20 mEq Tablet 40 MEQ PO (07:58)
[2020-12-15] MEDS: magnesium sulfate premix 2 GM/50 ML PIGGYBACK IV (10:28)
--- NOTE | 2020-12-15 10:36 | P.DS_ITS ---
Discharge Providers Date of Admission: 12/14/20 17:52 Date of Discharge: December 15, 2020 Attending Provider at Admission: Greer Ascencio MD Attending Provider at Discharge: Law Shore MD Primary Care Provider: Nazia Jha Diagnoses at Discharge Discharge Diagnosis (1) Hypomagnesemia: Status: Resolved (2) Hypokalemia: Status: Resolved (3) Cardiomyopathy: Status: Chronic Qualifiers: Cardiomyopathy type: dilated Qualified Code(s): I42.0 - Dilated cardiomyopathy (4) Chronic CHF (congestive heart failure): Status: Chronic Qualifiers: Heart failure type: combined systolic and diastolic Qualified Code(s): I50.42 - Chronic combined systolic (congestive) and diastolic (congestive) heart failure Reason for Visit Reason for Visit: recheck, abnormal labs Hospital Course Hospital Course 75 year old female with past medical history of COPD, chronic oxygen needs with 2 L and BiPAP at night, type diabetes mellitus, hypertension, GERD, CHF with EF of 30 to 35%, CAD, Takotsubo cardiomyopathy with EF of 30-35%. Recent hospital admissions in Aug 2020 and November 2020 for acute on chronic CHF exacerbation, mo st recently in the setting of having not been on diuretics in view of RO. Recently discharged on 11/26/20 to SNF after being treated for CHF exacerbation. Pneumonia was ruled out. COVID-19 was ruled out as well. Her hospitalization was complicated by her developing torsades on the night of admission for which she required 1 cycle of CPR and regained ROSC. She was discharged from SNF recently, followed up with her PCP as scheduled yesterday where electrolytes were checked, Mag resulted at 0.9 and she was referred to the ER for replacement. Denied any chest pain, dyspnea, palpitations.She was admitted for several electrolyte abnormalities including hypomagnesemia and hypokalemia.Aggressive IV magnesium supplementation undertaken, along with IV potassium and oral potassium supplement as well.At the time of discharge her magnesium and potassium was normal level.She was discharged on oral magnesium as well as oral potassium.She was euvolemic and was continued on her home dose of Lasix and metolazone. She responded well to the above medical management and was discharged in stable condition to home. She will continue to follow cardiology as an outpatient. Physical Exam Const: COMMON NORMALS: patient oriented x3 HENMT: COMMON NORMALS: normocephalic and atraumatic HEAD & SCALP: normocephalic and atraumatic Resp: COMMON NORMALS: normal respiratory effort and clear to auscultation bilaterally EFFORT & INSPECTION: Yes symmetric chest movement AUSCULTATION: clear to auscultation bilaterally Cardio: COMMON NORMALS: regular rate, regular rhythm, S1 normal heart sound present, S2 normal heart sound present, No gallops present (Cardio), No murmurs present (Cardio), No rub (Cardio) and Peripheral pulses 2+ throughout RATE: regular rate RHYTHM: regular rhythm HEART SOUNDS: S1 normal heart sound present and S2 normal heart sound present PERIPHERAL PULSES: Peripheral pulses 2+ throughout GI: COMMON NORMALS: Normal to inspection, nondistended, normoactive bowel sounds present, Soft to palpation, non-tender, No hepatosplenomegaly present and no masses AUSCULTATION: Yes normoactive bowel sounds PALPATION: Yes Soft to palpation and Yes No hepatosplenomegaly present RECTAL EXAM: deferred Extremity: COMMON NORMALS: no clubbing, cyanosis or edema and no pedal edema Neuro: COMMON NORMALS: patient oriented x3 Discharge Data Data Completed and Pending: Completed Studies During Hospitalization Category Date Time Status XR chest 1V wai ble [id number] Stat Exams 12/13/20 17:02 Completed Labs from last 24 hours 12/15/20 12/15/20 12/15/20 06:20 05:20 05:20 WBC 6.2 RBC 4.22 Hgb 10.4 L Hct 34.8 L MCV 82.5 MCH 24.6 L MCHC 29.9 L RDW 16.0 H Plt Count 238 MPV 10.0 Neut % (Auto) 56.1 Lymph % (Auto) 27.9 [place] % (Auto) 11.0 Eos % (Auto) 3.6 Baso % (Auto) 0.8 Neut # (Auto) 3.45 Lymph # (Auto) 1.7 [place] # (Auto) 0.7 Eos # (Auto) 0.2 Baso # (Auto) 0.1 Nucleated RBC % (a uto) 0 Nucleated RBCs # 0.0 Sodium 141 Potassium 4.1 Chloride 101 Carbon Dioxide 32 H Anion Gap 12.1 BUN 23 Creatinine 0.7 GFR Calculation Not Reportable Glucose 137 H POC Glucose 150 H Calculated Osmolal ity 298 H Calcium 9.2 Magnesium 2.0 12/14/20 12/14/2012/14/21 20:11 18:36 16:55 WBC RBC Hgb Hct MCV MCH MCHC RDW Plt Count MPV Neut % (Auto) Lymph % (Auto) [place] % (Auto) Eos % (Auto) Baso % (Auto) Neut # (Auto) Lymph # (Auto) [place] # (Auto) Eos # (Auto) Baso # (Auto) Nucleated RBC % (a uto) Nucleated RBCs # Sodium Potassium Chloride Carbon Dioxide Anion Gap BUN Creatinine GFR Calculation Glucose POC Glucose 124 H 150 H Calculated Osmolal ity Calcium Magnesium 2.3 12/14/20 11:18 WBC RBC Hgb Hct MCV MCH MCHC RDW Plt Count MPV Neut % (Auto) Lymph % (Auto) [place] % (Auto) Eos % (Auto) Baso % (Auto) Neut # (Auto) Lymph # (Auto) [place] # (Auto) Eos # (Auto) Baso # (Auto) Nucleated RBC % (a uto) Nucleated RBCs # Sodium Potassium Chloride Carbon Dioxide Anion Gap BUN Creatinine GFR Calculation Glucose POC Glucose 149 H Calculated Osmolal ity Calcium Magnesium Vitals: Last Vital Signs Temp 97.9 F 12/15/20 07:59 Pulse 62 12/15/20 09:15 Resp 17 12/15/20 09:09 BP 153/74 12/15/20 07:59 Pulse Ox 98 12/15/20 09:09 Discharge Plan Discharge Patient Disposition: Home Condition: Stable Prescriptions: New Klor-Con M20 20 mEq Tablet,Er Particles/Crystals 40 meq PO DAILY 30 Days RF: 0 magnesium oxide 200 mg magnesium tablet 200 mg PO BID Qty: 60 RF: 0 Continued clopidogrel [Plavix] 75 mg tablet 75 mg PO DAILY@08 RF: 0 Hold Instructions: Resume on 10/29/20. atorvastatin [Lipitor] 20 mg tablet 20 mg PO DAILY@0800 RF: 0 metformin 1,000 mg tablet 1,000 mg PO BID@, RF: 0 albuterol sulfate [ProAir HFA] 90 mcg/actuation HFA aerosol inhaler 2 puff inhalation Q6H PRN (Reason: Shortness Of Breath) RF: 0 ondansetron HCl [Zofran] 4 mg tablet 4 mg PO Q6H PRN (Reason: nausea and vomiting) Qty: 20 RF: 0 Anoro Ellipta 62.5-25 mcg/actuation Blister With Device 1 inh INHALATION BID@08,20 RF: 0 acetaminophen [Tylenol] 325 mg Tablet 325 - 650 mg PO Q6H PRN (Reason: Pain) RF: 0 metolazone 2.5 mg tablet 2.5 mg PO DAILY@08 RF: 0 Hold Instructions: Resume on 08/31/20. Please ask your primary care provider to monitor your electrolytes and kidney function and adjust your medications accordingly. sucralfate 1 gram tablet 1 g PO BID@799,1999 RF: 0 pantoprazole 40 mg tablet,delayed release (DR/EC) 40 mg PO DAILY@0800 RF: 0 hydroxyzine HCl 25 mg tablet 25 mg PO TID PRN (Reason: Anxiety) RF: 0 Januvia 50 mg tablet 50 mg PO DAILY@0800 RF: 0 losartan 50 mg Tablet 150 mg PO DAILY@0800 Qty: 90 RF: 0 furosemide 40 mg Tablet 40 mg PO DAILY@0800 Qty: 30 RF: 0 trazodone 150 mg Tablet 75 mg PO BEDTIME PRN (Reason: anxiety) Qty: 30 RF: 0 lansoprazole 30 mg capsule,delayed release(DR/EC) 30 mg PO DAILY@0800 RF: 0 buspirone 10 mg tablet 10 mg PO BID@799,1999 RF: 0 duloxetine 30 mg capsule,delayed release(DR/EC) 30 mg PO DAILY@0800 RF: 0 Changed carvedilol 6.25 mg Tablet 3.125 mg PO Q12H Qty: 60 RF: 0 Discharge Orders: Discharge Order (Routine); Ordered 12/15/20 Ordered By: Law Shore Referrals: Stacey Muñoz MD [Physician] - 2 weeks ([facility] will call you Thursday to set up an appointment.) Nazia Jha PA [Primary Care Provider] - (Please call [facility] on Thursday to schedule an appointment to see Nazia Jha.) Discharge Diet: Cardiac Discharge Activity: Resume usual activity Patient Instructions: Heart Failure (DC), Hypokalemia (DC), Hypomagnesemia (DC), CHF Stoplight, Opioid Safety, Weakness (Generalized) Discharge Attestations Time Spent in Discharge Care*: less than 30 min Specific Discharge Activities: educating patient, educating and/or supporting family/caregiver, discussing with pcp/other providers, discussing with case supervisor/social workers/dc planners, documenting/other paperwork and evaluating patient/reviewing data Status at Discharge: Cognitive status at discharge: cognitively intact , Behavioral status at discharge: cooperative , Quality Metrics Clinical Quality Measures During this hospital stay, did patient experience: None Coding Level of Care Code Acute Chg FW DC note Exam Detailed Diagnoses Hypomagnesemia E83.42 Hypokalemia E87.6 Cardiomyopathy I42.0 Cardiomyopathy type: dilated Chronic CHF (congestive heart failure) I50.42 Heart failure type: combined systolic and diastolic
[2020-12-15 11:13] LABS: Glucose Point of Care 200 mg/dL (70-110)
--- NOTE | 2020-12-15 13:09 | PC.NURSE ---
PT HAS DONE WELL FOR ME TODAY. PT HAS JUST HAD MINIMAL COMPLAINTS OF PAIN. TYLENOL WAS GIVEN FIRST THING THIS MORNING AND PT HAS DONE WELL WITH THAT. PT HAS NOT HAD ANY COMPLAINTS OF PAIN SINCE TYLENOL ADMINISTRATION. PT IS READY TO GO HOME. LABS HAVE BEEN TREADING UPWARD AND ARE LOOKING BETTER PER MD. PT IS READY FOR DISCHARGE. DISCHARGE PAPERWORK GONE OVER WITH PT. ALL QUESTIONS ANSWERED. MEDICATIONS WERE SENT TO PHARMACY OF PATIENTS CHOICE. IV WAS REMOVED. PT TOLERATED WELL. CATHETER TIP INTACT. THIS NURSE ASSISTED PT WITH CHANGING CLOTHES AND INTO THE WHEELCHAIR AND DOWNSTAIRS. PT SAFELY DISCHARGED FROM THE HOSPITAL AT 12:57.
--- NOTE | 2020-12-17 12:28 | PC.RESP ---
Smoking Cessation and Pulmonary Rehab information sent to patient.
== END 2020-12-15 12:57 | disposition home or self-care (01) | DRG 641 ==
LOC: ER 19:13 → MEDSURG 19:53
PROVIDERS: Family Medicine; Admitting Provider Student in an Organized Health Care Education/Training Program; Emergency Provider Emergency Medicine; PCP Physician Assistant; Visit Provider Internal Medicine
DX: E87.6 Hypokalemia (principal); I50.42 Chronic combined systolic (congestive) and diastolic (congestive) heart failure; I42.0 Dilated cardiomyopathy; E83.42 Hypomagnesemia; J44.9 Chronic obstructive pulmonary disease, unspecified; Z99.81 Dependence on supplemental oxygen; E11.9 Type 2 diabetes mellitus without complications; I11.0 Hypertensive heart disease with heart failure; K21.9 Gastro-esophageal reflux disease without esophagitis; I25.10 Atherosclerotic heart disease of native coronary artery without angina pectoris; G56.03 Carpal tunnel syndrome, bilateral upper limbs; F41.8 Other specified anxiety disorders; Z79.891 Long term (current) use of opiate analgesic; Z86.73 Personal history of transient ischemic attack (TIA), and cerebral infarction without residual deficits; M54.5 Low back pain; I25.2 Old myocardial infarction; F17.220 Nicotine dependence, chewing tobacco, uncomplicated; Z96.659 Presence of unspecified artificial knee joint; Z79.84 Long term (current) use of oral hypoglycemic drugs; Z79.02 Long term (current) use of antithrombotics/antiplatelets
CPT/HCPCS: 36415; 36416; 71045; 80048; 80053; 81003; 82962; 83735; 83880; 84484; 85025; 93005; 94640; 96372; G0378; J1650; J1815; J3475; J3480

== ENCOUNTER → 2022-01-07 14:53 | Outpatient (BNVA) | payer MEDICARE, MEDICAID, SELFPAY | PROVIDERS: PCP Physician Assistant; Visit Provider Internal Medicine | DX: I11.0 Hypertensive heart disease with heart failure (principal); I50.42 Chronic combined systolic (congestive) and diastolic (congestive) heart failure; E11.9 Type 2 diabetes mellitus without complications; Z79.84 Long term (current) use of oral hypoglycemic drugs; Z87.891 Personal history of nicotine dependence | CPT/HCPCS: 99214 ==

== ENCOUNTER 2023-06-26 11:33 | Inpatient (IN) | payer MEDICARE, MEDICAID, SELFPAY ==
[2023-06-26] VITALS (64 sets, daily range): BP systolic 121–247; BP diastolic 72–172; PULSE 52–93; RESP 15–33; TEMP 37.2–37.4; O2SAT 78–99; BMI 52.4; BMI 54.3
--- NOTE | 2023-06-26 11:40 | XRR_ITS ---
PROCEDURE INFORMATION: Exam: XR Chest Exam date and time: 06/26/2023 11:49 AM Age: 78 years old Clinical indication: Shortness of breath; Patient HX: SOB; Copd; Low o2 sat; Tachycardia TECHNIQUE: Imaging protocol: Radiologic exam of the chest. Views: 1 view. COMPARISON: CR XR chest 1V portable [id number] 12/13/2020 5:34 PM FINDINGS: Lungs: Mild atelectasis or infiltrate at the left lung base. Pleural spaces: Unremarkable. No pleural effusion. No pneumothorax. Heart/Mediastinum: See Vasculature finding. Vasculature: Moderate cardiomegaly and uncoiling of the thoracic aorta each accentuated by the AP positioning. Bones/joints: Lower thoracic neurostimulator. XR/XR chest 1V portable [id number] IMPRESSION: 1. Mild left lower lobe opacity. 2. Cardiomegaly.
--- NOTE | 2023-06-26 11:57 | ECG_ITS ---
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 Measurements Intervals [place] Rate: 63 P: 0 DE: 0 QRS: -18 QRSD: 104 T: 71 QT: 424 QTc: 435 Interpretive Statements Significant baseline artifact Rhythm appears a sinus rhythm with occasional PVCs Nonspecific ST changes Compared to last EKG 12/14/2020, ST changes on the anterior leads are less prominent Electronically Signed On 06-26-2023 13:51:50 CADDYMASTER by Ro Anne M.D. [email or web address] ([email or web address] [email or web address]/[id number] f
[2023-06-26 12:04] LABS: ABG PH Result 7.23 (7.35-7.45); Arterial Blood Gas Hematocrit 36.8 % (37-47); Base Excess ABG 7.6 mmol/L (-2.0-2.0); Blood Gas Allen Test Pos; Blood Gas Operator Identificat WALC9; Blood Gas Sample Site Radial, right; Blood Gas Sample Type Arterial; Carboxyhemoglobin 2.1 %THgb (0.4-20.1); HCO3 ABG 38.2 mmol/L (22-26); HGB O2 Sat 94.1 % (95-100); Ionized Calcium Level - ABG 1.3 mmol/L (1.1-1.4); Methemoglobin 0.6 % (0.4-1.5); Oxygen Device NC; Oxygen Saturation ABG 96.7; PO2 ABG 83.3 mmHg (80.0-100.0); Potassium Level - ABG 5.5 mmol/L (3.5-5.0)
[2023-06-26 12:05] LABS: ABG PCO2 91.5 mmHg (35-45)
[2023-06-26] MEDS: FUROsemide 10 mg/mL SDV 10mL 60 MG IVP (12:16)
[2023-06-26 12:17] LABS: Troponin(5th) Baseline 17 ng/L (0-10)
[2023-06-26] MEDS: ipratropium-albuterol 3 mL Neb INHALATION ×4 (12:17→23:53)
[2023-06-26] MEDS: dexamethasone 10 mg/mL INJ IM (12:17)
--- NOTE | 2023-06-26 12:25 | ED_ITS ---
HPI - SOB/Dyspnea General: Chief Complaint: Shortness of Breath/Dyspnea Stated Complaint: difficulty breathing Time Seen by Provider: 06/26/23 11:39 Source: patient Mode of arrival: EMS History of Present Illness: HPI Narrative: 78-year-old female with a history of COPD congestive heart failure previous strokes diabetes mellitus hypertension presents to the emergency room from home was hypoxic at home presents short of breath even with 6 L/min oxygen she still satting in the mid upper 80s. MD elicited complaint: shortness of breath and cough Pertinent past history: COPD and congestive heart failure Associated symptoms: Deny abdominal pain, chest pain or fever(s) Review of Systems Const: Denies: fever(s) or chills Card: Denies: chest pain Resp: Reports: dyspnea, non-productive cough and wheezing GI: Denies: abdominal pain : Denies: dysuria, urinary frequency or urinary urgency Musc: Denies: neck pain or back pain Skin/Breast: Denies: rash PFSH ED PFSH: Medical History Acute HFrEF (heart failure with reduced ejection fraction) Blood in stool Cardiomyopathy Carpal tunnel syndrome on both sides Chronic CHF (congestive heart failure) Chronic radicular low back pain COPD (chronic obstructive pulmonary disease) COPD (chronic obstructive pulmonary disease) CVA (cerebral vascular accident) Depression with anxiety Diabetes Diabetes Diarrhea Encounter for long-term use of opiate analgesic Gastritis GERD (gastroesophageal reflux disease) HFrEF (heart failure with reduced ejection fraction) History of cerebrovascular accident History of CHF (congestive heart failure) History of GI bleed Hypertension Hypertension Hypokalemia Hypomagnesemia Low back pain Non-ST elevation PA (NSTEMI) Opioid contract exists Smokeless tobacco use Stress-induced cardiomyopathy Takotsubo cardiomyopathy Torsades de pointes Surgical History H/O knee surgery History of colonoscopy (~11/2020) History of esophagogastroduodenoscopy (EGD) (~11/2020) History of knee replacement History of lumbar surgery Also history of spinal cord stimulator, currently not functioning History of shoulder surgery Family History Other CAD (coronary artery disease) Hypertension Stroke Denies family history of Anesthesia complication Bleeding disorder Social History Smoking and tobacco/nicotine status: former use of tobacco/nicotine Alcohol intake: never Substance/Drug Use: never Physical Exam Const: ORIENTATION/CONSCIOUSNESS: Yes awake HENMT: COMMON NORMALS: normocephalic and atraumatic HEAD & SCALP: normocep halic and atraumatic Resp: EFFORT & INSPECTION: Yes tachypneic AUSCULTATION: crackles, wheezes and diminished lung sounds Cardio: COMMON NORMALS: regular rate, regular rhythm and No murmurs present (Cardio) RATE: regular rate RHYTHM: regular rhythm GI: COMMON NORMALS: Soft to palpation and No hepatosplenomegaly present AUSCULTATION: Yes normoactive bowel sounds PALPATION: Yes Soft to palpation, No Tenderness to palpation present (GI), No Guarding due to palpation present (GI) and Yes No hepatosplenomegaly present Extremity: COMMON NORMALS: normal to inspection, capillary refill normal and no calf tenderness GENERAL: Yes edema Skin: COMMON NORMALS: no rashes or lesions noted GENERAL SKIN EXAM: no rashes or lesions noted Course Vital Signs: Vital signs: Vital Signs Pulse Rate 62 06/26/23 14:37 Respiratory Rate 24 H 06/26/23 14:37 Blood Pressure 135/110 06/26/23 11:58 Pulse Oximetry 96 06/26/23 14:37 Oxygen Delivery Me thod BiPAP 06/26/23 12:12 Oxygen Flow Rate 6 06/26/23 11:58 Fraction of Inspir ed Oxygen 40 06/26/23 13:28 MDM - SOB/Dyspnea Medical Decision Making COPD exasperated hypercapnia and respiratory failure. She is some mild CHF as well. Will cover for pneumonia as there is a left lower lobe opacity on chest x-ray. Discussed with hospitalist orders written Medical Records I reviewed the patient's medical records. Lab Data I reviewed the patient's lab results. 06/26/23 13:04 06/26/23 11:47 Labs/Radiology: Radiology Impressions Chest X-Ray 06/26/23 11:40 IMPRESSION: 1. Mild left lower lobe opacity. 2. Cardiomegaly. Laboratory Results WBC 4.62 10^3/uL (3.29-11.43) 06/26/23 13:04 Corrected WBC Cancelled 06/26/23 11:47 RBC 4.23 10^6/uL (3.85-5.65) 06/26/23 13:04 Hgb 11.80 g/dL (11.27-16.99) 06/26/23 13:04 Hct 42.2 % (36-47) 06/26/23 13:04 MCV 99.8 fl (85-98) H 06/26/23 13:04 MCH 27.9 pg (27-33) 06/26/23 13:04 MCHC 28.0 g/dL (30-55) L 06/26/23 13:04 RDW 15.3 % (12.1-15.1) H 06/26/23 13:04 Plt Count 262 10^3/cmm (157-399) 06/26/23 13:04 MPV 9.6 fL (7.4-10.4) 06/26/23 13:04 Gran % Cancelled 06/26/23 11:47 Neut % (Auto) 74.9 % 06/26/23 13:04 Lymph % (Auto) 14.3 % 06/26/23 13:04 Bertie % (Auto) 8.9 % 06/26/23 13:04 Eos % (Auto) 0.0 % 06/26/23 13:04 Baso % (Auto) 0.4 % 06/26/23 13:04 Neut # (Auto) 3.46 10^3/uL (1.8-7.7) 06/26/23 13:04 Lymph # (Auto) 0.7 10^3/uL (0.8-4.8) L 06/26/23 13:04 Bertie # (Auto) 0.4 10^3/uL (0.2-0.9) 06/26/23 13:04 Eos # (Auto) 0.0 10^3/uL (0.0-0.8) 06/26/23 13:04 Baso # (Auto) 0.0 10^3/uL (0.0-0.1) 06/26/23 13:04 Absolute Gran (auto) Cancelled 06/26/23 11:47 Nucleated RBC % (auto) 0 % 06/26/23 13:04 Nucleated RBCs # 0.0 /100WBC 06/26/23 13:04 Specimen Type Arterial 06/26/23 12:59 Sample Site Radial, right 06/26/23 12:59 ABG pH 7.27 (7.35-7.45) L 06/26/23 12:59 ABG pCO2 86.2 mmHg (35-45) H* 06/26/23 12:59 ABG pO2 87.8 mmHg (80.0-100.0) 06/26/23 12:59 ABG PO2/FiO2 Ratio 0 06/26/23 12:59 ABG HCO3 39.2 mmol/L (22-26) H 06/26/23 12:59 ABG O2 Saturation 97.7 06/26/23 12:59 ABG Base Excess 9.3 mmol/L (-2.0-2.0) H 06/26/23 12:59 Cornel Test Pos 06/26/23 12:59 A-a O2 Gradient 12.7 mmHg (5-10) H 06/26/23 12:59 Hematocrit 36.7 % (37-47) L 06/26/23 12:59 Hgb O2 Saturation 95.3 % (95-100) 06/26/23 12:59 Carboxyhemoglobin 2.1 %THgb (0.4-20.1) 06/26/23 12:59 Methemoglobin 0.4 % (0.4-1.5) 06/26/23 12:59 Total Hemoglobin 12.0 g/dL (12-16) 06/26/23 12:59 Sodium 143.0 mmol/L (131-143) 06/26/23 12:59 Potassium 5.5 mmol/L (3.5-5.0) H 06/26/23 12:59 Glucose 137.0 mg/dL (70-115) H 06/26/23 12:59 Ionized Calcium 1.3 mmol/L (1.1-1.4) 06/26/23 12:59 O2 Delivery Device Bipap 06/26/23 12:59 O2 Liters/Min 6.0 % 06/26/23 11:53 FiO2 40.0 % 06/26/23 12:59 Tidal Volume 0.38 06/26/23 12:59 PEEP 10.0 cmH20 06/26/23 12:59 Lead Software Qa Engineer ID [place] 06/26/23 12:59 Sodium 142 mmol/L (136-145) 06/26/23 11:47 Potassium 6.1 mmol/L (3.5-5.1) H 06/26/23 11:47 Chloride 100 mmol/L (98-107) 06/26/23 11:47 Carbon Dioxide 36 mmol/L (22-29) H 06/26/23 11:47 Anion Gap 12.1 (5-19) 06/26/23 11:47 BUN 17 mg/dL (8-23) 06/26/23 11:47 Creatinine 0.6 mg/dL (0.5-0.9) 06/26/23 11:47 GFR Calculation Not Reportable 06/26/23 11:47 Glucose 159 mg/dL (65-115) H 06/26/23 11:47 Calculated Osmolality 299 mOsm/kg (285-295) H 06/26/23 11:47 Calcium 9.2 mg/dL (8.5-10.5) 06/26/23 11:47 Magnesium 2.1 mg/dL (1.7-2.3) 06/26/23 11:47 Ferritin 89 ng/mL (15-150) 06/26/23 11:47 Total Bilirubin 0.3 mg/dL (0.15-1.2) 06/26/23 11:47 AST 13 U/L (0-32) 06/26/23 11:47 ALT 12 U/L (0-33) 06/26/23 11:47 Alkaline Phosphatase 84 U/L (35-105) 06/26/23 11:47 Troponin T Baseline 17 ng/L (0-10) H 06/26/23 11:47 C-Reactive Protein 44.0 mg/L (0.0-4.9) H 06/26/23 11:47 NT-Pro-B Natriuret Pep 2624 pg/mL (0-450) H 06/26/23 11:47 Total Protein 6.3 g/dL (6.6-8.7) L 06/26/23 11:47 Albumin 3.3 g/dL (3.5-5.2) L 06/26/23 11:47 Globulin 3.0 g/dL (1.3-4.6) 06/26/23 11:47 Procalcitonin 0.10 ng/mL (0-0.5) 06/26/23 11:47 TSH 1.72 uIU/mL (0.27-4.20) 06/26/23 11:47 Urine Color Yellow (Yellow) 06/26/23 12:22 Urine Appearance Cloudy (CLEAR) A 06/26/23 12:22 Urine pH 5 (5-7) 06/26/23 12:22 Ur Specific [place] 1.025 (1.005-1.030) 06/26/23 12:22 Urine Protein 3+ (Negative) H 06/26/23 12:22 Urine Glucose (UA) Norm (Normal) 06/26/23 12:22 Urine Ketones Negative (Negative) 06/26/23 12:22 Urine Blood 2+ (Negative) H 06/26/23 12:22 Urine Nitrate Negative (Negative) 06/26/23 12:22 Urine Bilirubin Neg (Negative) 06/26/23 12:22 Urine Urobilinogen Norm mg/dL (Negative) 06/26/23 12:22 Ur Leukocyte Esterase Negative (Negative) 06/26/23 12:22 Urine RBC 5-10 /hpf (0-2) H 06/26/23 12:22 Urine WBC 0-4 /hpf (0-5) H 06/26/23 12:22 Ur Squamous Epith Cells 5-10 /hpf (0-5) H 06/26/23 12:22 Amorphous Sediment Not Reportable 06/26/23 12:22 Urine Bacteria 1+ /hpf (NONE) H 06/26/23 12:22 Hyaline Casts 0-4 /lpf H 06/26/23 12:22 All radiology interpretation(s) finalized by discharge Discharge Plan Discharge Patient Disposition: Admitted As Inpatient Admit Provider: Jignesh Wu Clinical Impression: Acute respiratory failure with hypoxia and hypercapnia, Acute exacerbation of chronic obstructive airways disease, Congestive heart failure, Pneumonia Condition: Stable Coding Level of Care Code ED Financial Service Representative for Lea Dinero
[2023-06-26 12:27] LABS: Alanine Aminotransferase 12 U/L (0-33); Albumin Level 3.3 g/dL (3.5-5.2); Alkaline Phosphatase 84 U/L (35-105); Aspartate Amino Transferase 13 U/L (0-32); Blood Urea Nitrogen 17 mg/dL (8-23); Calcium 9.2 mg/dL (8.5-10.5); Carbon Dioxide 36 mmol/L (22-29); Chloride 100 mmol/L (98-107); Glucose 159 mg/dL (65-115); NT Pro B Type Natriuretic Pept 2624 pg/mL (0-450); Osmolality Calculated 299 mOsm/kg (285-295); Sodium 142 mmol/L (136-145); Total Bilirubin 0.3 mg/dL (0.15-1.2); Total Protein 6.3 g/dL (6.6-8.7)
[2023-06-26 12:29] LABS: Anion Gap 12.1 (5-19); Potassium 6.1 mmol/L (3.5-5.1)
[2023-06-26] MEDS: piperacillin-tazobactam 3.375 GM in sodium chloride 0.9% (plus) 50 ML IV ×2 (12:54→18:08)
[2023-06-26 13:11] LABS: ABG PH Result 7.27 (7.35-7.45); Alveolar-Arterial Oxygen Gradi 12.7 mmHg (5-10); Arterial Blood Gas Hematocrit 36.7 % (37-47); Base Excess ABG 9.3 mmol/L (-2.0-2.0); Blood Gas Allen Test Pos; Blood Gas Operator Identificat WALCI; Blood Gas Sample Site Radial, right; Blood Gas Sample Type Arterial; Blood Gas Tidal Volume 0.38; Carboxyhemoglobin 2.1 %THgb (0.4-20.1); HCO3 ABG 39.2 mmol/L (22-26); HGB O2 Sat 95.3 % (95-100); Ionized Calcium Level - ABG 1.3 mmol/L (1.1-1.4); Methemoglobin 0.4 % (0.4-1.5); Oxygen Device BIPAP; Oxygen Saturation ABG 97.7; PO2 ABG 87.8 mmHg (80.0-100.0); PO2 FiO2 Ratio Arterial Blood 0; Potassium Level - ABG 5.5 mmol/L (3.5-5.0)
[2023-06-26 13:12] LABS: ABG PCO2 86.2 mmHg (35-45)
[2023-06-26 13:40] LABS: Basophils % 0.4 %; Hematocrit 42.2 % (36-47); Lymphocytes # 0.7 10^3/uL (0.8-4.8); Lymphocytes % 14.3 %; Mean Corpuscular Hemoglobin 27.9 pg (27-33); Mean Corpuscular Volume 99.8 fl (85-98); Mean Platelet Volume 9.6 fL (7.4-10.4); Monocytes # 0.4 10^3/uL (0.2-0.9); Monocytes % 8.9 %; Neutrophils # 3.46 10^3/uL (1.8-7.7); Neutrophils % 74.9 %; Nucleated Red Blood Cells % 0 %; Platelet Count 262 10^3/cmm (157-399); Red Blood Count 4.23 10^6/uL (3.85-5.65); Red Cell Distribution Width 15.3 % (12.1-15.1); White Blood Count 4.62 10^3/uL (3.29-11.43)
--- NOTE | 2023-06-26 13:47 | ECG_ITS ---
[facility] Test Date: 2023-06-26 Pat Name: Lauren Jose Department: Room: ICU06 Gender: Female Pony Ride Attendant: : 1945 Requested By: Manny Gabriel Order Number: [id number] Olga MD: Ro Anne M.D. Measurements Intervals [place] Rate: 57 P: 0 RI: 0 QRS: -7 QRSD: 104 T: 54 QT: 441 QTc: 431 Interpretive Statements Baseline artifact Sinus bradycardia Poor R wave progression, cannot rule out old anterior ND Nonspecific ST changes Compared to ECG 06/26/2023 11:57:17 No significant change Electronically Signed On 06-26-2023 14:06:20 PATIENT RELATIONS DIRECTOR by Ro Anne M.D. [id number]
--- NOTE | 2023-06-26 14:12 | CTR_ITS ---
PROCEDURE INFORMATION: Exam: CTA Chest With Contrast Exam date and time: 06/26/2023 2:20 PM Age: 78 years old Clinical indication: Bloating; Shortness of breath; Additional info: SOB TECHNIQUE: Imaging protocol: Computed tomographic angiography of the chest with contrast. Exam focused on the arteries. 3D rendering (Not supervised by radiologist): MIP and/or 3D reconstructed images were created by the technologist. Radiation optimization: All CT scans at this facility use at least one of these dose optimization techniques: automated exposure control; mA and/or kV adjustment per patient size (includes targeted exams where dose is matched to clinical indication); or iterative reconstruction. Contrast material: OMNI 350; Contrast volume: 100 ml; Contrast route: INTRAVENOUS (IV); REPORTING DATA: Count of CT and Cardiac NM exams in prior 12 months: This patient has received 0 known CTs and 0 known cardiac nuclear medicine studies in the 12 months prior to the current study. COMPARISON: CT angio chest PE protcl [id number] 11/19/2020 8:13 PM RADIATION DOSE METRICS: Total DLP (mGy-cm): 1618.92 FINDINGS: Tubes, catheters and devices: Lower thoracic neurostimulator. Pulmonary arteries: Normal. No pulmonary emboli. Aorta: Unremarkable. No aortic aneurysm. No aortic dissection. Lungs: Dependent atelectasis. 8 mm masslike density in the left upper lobe is likely a focal infiltrate, CT follow-up in 3 months recommended. Pleural spaces: Small pleural effusions. Heart: Unremarkable. No cardiomegaly. No pericardial effusion. Lymph nodes: Unremarkable. No enlarged lymph nodes. Bones/joints: Unremarkable. No acute fracture. Soft tissues: Unremarkable. PROCEDURE INFORMATION: Exam: CT Abdomen And Pelvis With Contrast Exam date and time: 06/26/2023 2:20 PM Age: 78 years old Clinical indication: Bloating; Shortness of breath; Additional info: SOB TECHNIQUE: Imaging protocol: Computed tomography of the abdomen and pelvis with contrast. Radiation optimization: All CT scans at this facility use at least one of these dose optimization techniques: automated exposure control; mA and/or kV adjustment per patient size (includes targeted exams where dose is matched to clinical indication); or iterative reconstruction. Contrast material: OMNI 350; Contrast volume: 100 ml; Contrast route: INTRAVENOUS (IV); REPORTING DATA: Count of CT and Cardiac NM exams in prior 12 months: This patient has received 0 known CTs and 0 known cardiac nuclear medicine studies in the 12 months prior to the current study. COMPARISON: CT abdomen pelvis con [id number] 08/22/2020 10:16 PM RADIATION DOSE METRICS: Total DLP (mGy-cm): 0.01 FINDINGS: Liver: Normal. No mass. Gallbladder and bile ducts: Cholecystectomy. Pancreas: Normal. No ductal dilation. Spleen: Normal. No splenomegaly. Adrenal glands: Nodular hyperplasia of the left adrenal. Kidneys and ureters: 13 mm left renal cyst is actually slightly smaller than before. Stomach and bowel: Unremarkable. No obstruction. No mucosal thickening. Appendix: No evidence of appendicitis. Intraperitoneal space: Unremarkable. No free air. No significant fluid collection. Vasculature: Unremarkable. No abdominal aortic aneurysm. Lymph nodes: Unremarkable. No enlarged lymph nodes. Urinary bladder: The urinary bladder is collapsed around a Dumont catheter. Reproductive: Unremarkable as visualized. Bones/joints: Sclerotic focus within T10 and 11 are slightly larger than before and these could represent metastatic disease. Several additional is similar areas of increased density are seen above this level. Soft tissues: Unremarkable. CT/CT angio chest w abd pel w con IMPRESSION: 1. Small effusions with bibasilar atelectasis. 2. 8 mm masslike density in the left upper lobe. Three-month follow-up chest CT recommended. IMPRESSION: 1. No acute findings. 2. 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 Consider nuclear medicine bone scan if clinically warranted.
[2023-06-26 14:20] LABS: Thyroid Stimulating Hormone 1.72 uIU/mL (0.27-4.20)
[2023-06-26 14:25] LABS: Troponin 5 2HR 16.33 ng/L (0-10)
[2023-06-26 14:28] LABS: Troponin 5 2HR Delta -0.67 ABS# (0-10)
[2023-06-26 14:31] LABS: Ferritin 89 ng/mL (15-150); Magnesium 2.1 mg/dL (1.7-2.3)
[2023-06-26 14:31] LABS: Add Urine Microscopic? YES; Bilirubin Urine Neg (Negative); Blood Urine 2+ (Negative); Glucose Urine UA Norm (Normal); Ketones Urine Negative (Negative); Leukocyte Esterase Urine Negative (Negative); Nitrate Urine Negative (Negative); Protein Urine 3+ (Negative); Specific Gravity, Urine 1.025 (1.005-1.030); Urine Appearance Cloudy (CLEAR); Urine Color Yellow (Yellow); Urobilinogen Urine Norm (Negative); pH Urine 5 (5-7)
[2023-06-26 14:32] LABS: Add Urine Culture? No; Bacteria Urine 1+ /hpf; Hyaline Casts Urine 0-4 /lpf; WBC Urine 0-4 /hpf (0-5)
[2023-06-26] MEDS: iohexol 350 mg/mL 500 mL Btl (per mL) IV (14:37)
--- NOTE | 2023-06-26 14:37 | P.HP_ITS ---
Providers/Chief Complaint Admitting Physician: Jginesh Wu MD Primary Care Provider: Nazia Jha Chief Complaint: difficulty breathing History of Present Illness Lauren Jose is a 78 year old female with a past medical history of COPD, noncompliant with BiPAP therapy, history of cardiomyopathy, history of diastolic CHF, history of systolic CHF, history of CAD, hypertension, hyperlipidemia, morbid obesity, who presents to [facility] for shortness of breath, encephalopathy, fevers, cough. Currently patient is alert to person, not to place, not to time, she does follow some commands but is quite encephalopathic she keeps pulling in her BiPAP mask and on the tubing, complaining of severe low back pain, I help the nurses reposition her in bed complaint because she continues to be in a lot of pain continues to be quite confused. Most of the history was obtained by patient's daughter at bedside, daughter tells me that patient has been feeling more short of breath recently, she has lower extreme edema she is noncompliant with her BiPAP for the last 2 years, her O2 sats yesterday were in the low 70s at times, this morning they were in the low 80s, no sick contacts, recent travel, no nausea, no vomiting, on examination, patient is in mild respiratory distress, tachypneic, tachycardic, intercostal retractions no nasal flaring, she is on 40% BiPAP, when she came into the ER she was found to have acute hypercarbic hypoxic respiratory failure, placed on BiPAP, currently her pH is 7.27, PCO2 86.2, compared to 91.5, O2 is 87.8, on 40%, chest x-ray shows left lower lobe opacity, BNP is over 2000, troponin is 17, potassium 6.1 she has not received anything for this, currently she looks fluid overloaded, abdomen is distended, has anasarca, 2+ pitting edema bilateral extremities, Review of Systems General: Reports: ROS unobtainable due to mental status Medications/Allergies Home Medications Medication Instructions Recorded Confirmed Last Taken Type atorvastatin 20 mg tablet (Lipitor) 20 mg PO DAILY@0800 09/30/19 06/26/23 12/13/20 History clopidogrel 75 mg tablet (Plavix) 75 mg PO DAILY@08 09/30/19 06/26/23 12/13/20 History albuterol sulfate 90 mcg/actuation 2 puff inhalation Q4H PRN 06/11/20 06/26/23 10/23/20 08:00 History aerosol inhaler (ProAir HFA) Shortness Of Breath umeclidinium 62.5 mcg-vilanterol 1 inh inhalation BID@08,20 07/23/20 06/26/23 10/23/20 08:00 History 25 mcg/actuation powdr for inhalation (Anoro Ellipta) acetaminophen 325 mg tablet 325 - 650 mg PO Q6H PRN Pain 08/22/20 06/26/23 12/13/20 History (Tylenol) hydroxyzine HCl 25 mg tablet 25 mg PO TID PRN Anxiety 11/19/20 06/26/23 Unknown History furosemide 40 mg tablet 40 mg PO DAILY@0800 #30 tabs 11/26/20 06/26/23 12/13/20 Rx losartan 50 mg tablet 150 mg PO DAILY@0800 #90 tabs 11/26/20 06/26/23 12/13/20 Rx buspirone 10 mg tablet 10 mg PO BID@0800,199912/13/20 06/26/23 12/13/20 History magnesium oxide 200 mg PO BID #60 tabs 12/15/20 06/26/23 Unknown Rx carvedilol 3.125 mg tablet 3.125 mg PO Q12H 06/26/23 06/26/23 Unknown History dicyclomine 20 mg tablet 20 mg PO TID PRN Acid Reflux 06/26/23 06/26/23 Unknown History famotidine 20 mg tablet 20 mg PO BID 06/26/23 06/26/23 Unknown History losartan 100 mg tablet 100 mg PO DAILY@0800 06/26/23 06/26/23 Unknown History potassium chloride 20 mEq 20 meq PO BID 06/26/23 06/26/23 Unknown History tablet,extended release(part/cryst) (Klor-Con M) trazodone 150 mg tablet 150 mg PO BEDTIME PRN anxiety 06/26/23 06/26/23 Unknown History Allergies Allergy/AdvReac Type Severity Reaction Status Date / Time No Known Allergies Allergy Verified 01/07/22 15:08 PFSH Acute PFSH: Medical History Acute HFrEF (heart failure with reduced ejection fraction) Blood in stool Cardiomyopathy Carpal tunnel syndrome on both sides Chronic CHF (congestive heart failure) Chronic radicular low back pain COPD (chronic obstructive pulmonary disease) COPD (chronic obstructive pulmonary disease) CVA (cerebral vascular accident) Depression with anxiety Diabetes Diabetes Diarrhea Encounter for long-term use of opiate analgesic Gastritis GERD (gastroesophageal reflux disease) HFrEF (heart failure with reduced ejection fraction) History of cerebrovascular accident History of CHF (congestive heart failure) History of GI bleed Hypertension Hypertension Hypokalemia Hypomagnesemia Low back pain Non-ST elevation NH (NSTEMI) Opioid contract exists Smokeless tobacco use Stress-induced cardiomyopathy Takotsubo cardiomyopathy Torsades de pointes Surgical History H/O knee surgery History of colonoscopy (~11/2020) History of esophagogastroduodenoscopy (EGD) (~11/2020) History of knee replacement History of lumbar surgery Also history of spinal cord stimulator, currently not functioning History of shoulder surgery Family History Other CAD (coronary artery disease) Hypertension Stroke Denies family history of Anesthesia complication Bleeding disorder Social History Smoking and tobacco/nicotine status: former use of tobacco/nicotine Alcohol intake: never Substance/Drug Use: never Vitals/I&O/Wt Last Vital Signs Pulse 85 06/26/23 13:28 Resp 18 06/26/23 13:00 BP 135/110 06/26/23 11:58 Pulse Ox 97 06/26/23 13:28 O2 Del Method BiPAP 06/26/23 12:12 O2 Flow Rate 6 06/26/23 11:58 FiO2 40 06/26/23 13:28 Weight last 48 hrs Weight 117.934 kg Physical Exam Const: COMMON NORMALS: no acute distress EXAM LIMITATIONS: altered mental status ORIENTATION/CONSCIOUSNESS: Yes awake, Yes oriented to person and Yes confused; not oriented to place and not oriented to time HENMT: COMMON NORMALS: normocephalic HEAD & SCALP: normocephalic Eye: COMMON NORMALS: Equal, round and reactive pupils present Neck/C-Spine: COMMON NORMALS: no JVD Lymph: LYMPHATIC: no lymphadenopathy noted Chest: COMMONS NORMALS: normal inspection of the chest Resp: EFFORT & INSPECTION: Yes symmetric chest movement, Yes tachypneic, Yes respiratory distress, Yes retractions intercostal and Yes uses accessory muscles AUSCULTATION: crackles and wheezes OTHER: Mild respiratory distress, intercostal retractions, suprasternal retractions, tachypnea Cardio: COMMON NORMALS: regular rhythm, S1 normal heart sound present and S2 normal heart sound present RATE: tachycardic RHYTHM: regular rhythm HEART SOUNDS: S1 normal heart sound present and S2 normal heart sound present GI: OTHER: Abdomen soft, distended, decreased bowel sounds in all 4 quadrants, no guarding, no rebound, no rigidity, does have right upper quadrant tenderness to palpation Extremity: NARRATIVE EXTREMITY EXAM: 2+ pitting edema bilateral extremity Neuro: OTHER: Spontaneous movement of upper or lower extremities, encephalopathic, does not follow commands for neurologic testing Data 06/26/23 13:04 06/26/23 11:47 Micro: Microbiology 06/26/23 13:54 Blood Culture - Preliminary Blood SPECIMEN COLLECTED 06/26/23 13:47 Blood Culture - Preliminary Blood SPECIMEN COLLECTED A&P Assessment and plan (1) Acute encephalopathy: (2) Systolic CHF, acute: (3) Pulmonary edema: (4) Anasarca: (5) Acute respiratory failure with hypoxia and hypercapnia: (6) Morbid obesity: (7) Hyperkalemia: (8) COPD exacerbation: Plan Acute hypoxic hypercarbic respiratory failure, ? Multifactorial, ? COPD exacerbation, ? Morbid obesity, ? Systolic CHF exacerbation, ? Left lower lobe pneumonia ? Currently on 40% BiPAP, PCO2 has improved 86, pH 7.27, is in mild to moderate respiratory distress, with intercostal retraction suprasternal retractions, tachycardia, tachypnea, ? Plan, ? Low threshold for intubation, repeat ABG at 4 PM, ? Monitor PCO2, ? Monitor respiratory status, ? DuoNeb, -Budesonide ? Has received 40 of IV Lasix in the emergency room we will give another 40 at 6 PM, ? Fluid restriction of 1000 cc, ? CT angiogram of the chest, ? Cardiac echo, ? Continue vancomycin, Zosyn, ? Respiratory viral panel, ? Pro-Bassam, CRP, ? Sputum cultures, ? Blood cultures, ? History of COPD, on 5 L, noncompliant with BiPAP, ? Currently in COPD exacerbation, Morbid obesity, Systolic CHF ? Cardiac echo in 2020 ?CONCLUSIONS ?This is a limited echocardiogram with contrast performed to rule ?out LV thrombus and assess LV function.? LV systolic function is ?moderate to severely reduced with EF of 35 to 40%.? There is ?severe hypokinesis of apical wall.? Global mild to moderate ?hypokinesis is noted.? No LV thrombus is present. ?Grossly RV function appears at least moderately reduced. ?Compared to prior echocardiogram from 07/24/2020, LV systolic ?function has improved and is 35 to 40% now. ? Fluid restrictions at 1000 cc, ? Diuresis as above Left lower lobe pneumonia, NSTEMI, Type I versus type II, ? Cardiac catheterization in 2020 showed ?Conclusions ? 1. Nonobstructive coronary artery disease. ? 2. Significantly elevated LVEDP. ? 3. Likely Takotsubo cardiomyopathy versus myocarditis. Given patient's very high LVEDP ventriculography was not performed. Will need echocardiogram. ? 4. There is moderate coronary artery disease with one vessel disease. ? Serial EKGs, serial troponins, telemetry monitoring, Type 2 diabetes mellitus, low-dose sliding scale, Hyperkalemia potassium 6.1, 10 units IV push insulin, with D50, Abdominal distention, with right upper quadrant pain, CT scan abdomen pelvis, keep n.p.o., monitor liver function,, History of torsades, in the past requiring CPR, check magnesium level, monitor troponins Lovenox for DVT prophylaxis, Protonix for GI prophylaxis, CODE STATUS, patient is a full code, spoke to patient's daughter in detail she does not want prolonged mechanical ventilation, is okay for intubation for about 24 hours, Attestations Medical Necessity Statement*: Patient requires hospitalization, inpatient, greater than 2 midnights for acute hypoxic hypercarbic respiratory failure, multifactorial from pneumonia, systolic CHF, NSTEMI, fluid overload, encephalopathy, requiring ICU level care due to acute respiratory failure, requiring Precedex drip due to agitation, severe hypercarbia, Coding Level of Care Code Critical Care >/= 30 minutes Critical care time (in minutes): 50 The high probability of a clinically significant, sudden or life threatening deterioration, as referenced in this documentation, required my full and direct attention, intervention and personal management. The critical care time shown is in addition to time spent performing any reported separately billable procedures and includes the following: [x] Data and vital sign review and interpretation [x ] Patient assessment, examination and intervention [x] Medication orders and man agement [x] Patient/Family updates as able [x] Care Coordination and Documentation. Diagnoses Acute encephalopathy G93.40 Systolic CHF, acute I50.21 Pulmonary edema J81.1 Anasarca R60.1 Acute respiratory failure with hypoxia and hypercapnia J96.01; J96.02 Morbid obesity E66.01 Hyperkalemia E87.5 COPD exacerbation J44.1
--- NOTE | 2023-06-26 15:01 | USR_ITS ---
PROCEDURE INFORMATION: Exam: US Duplex Lower Extremity Veins, Bilateral Exam date and time: 06/26/2023 4:51 PM Age: 78 years old Clinical indication: Edema, localized; Lower extremity, bilateral; Additional info: Dvt TECHNIQUE: Imaging protocol: Real-time duplex ultrasound of the bilateral extremities with 2-D vieira scale, color Doppler flow and spectral waveform analysis including responses to compression and other maneuvers (when performed) with image documentation. Complete exam focused on the lower extremity veins. COMPARISON: CT angio chest w abd pel w con 06/26/2023 2:20 PM FINDINGS: Right deep veins: Unremarkable. The common femoral, femoral, proximal profunda femoral, popliteal, posterior tibial and peroneal veins are patent without thrombus. Normal Doppler waveforms. Normal compressibility and/or augmentation response. Left deep veins: Unremarkable. The common femoral, femoral, proximal profunda femoral, popliteal, posterior tibial and peroneal veins are patent without thrombus. Normal Doppler waveforms. Normal compressibility and/or augmentation response. Superficial veins: Bilateral saphenofemoral junctions are patent without thrombus. Soft tissues: Unremarkable. US/CV venous duplex [facility] [id number] IMPRESSION: No sonographic evidence of deep vein thrombosis.
--- NOTE | 2023-06-26 15:01 | USCV_ITS ---
Lauren Jose Age: 78 Gender: F : 1945 Exam Date: 06/26/2023 17:12 Ordering Phys: Jignesh Wu MD Technologist: Cornell Marquez Exam Location: [facility] [place] Indication: sob BP: 195 / 123 HR: 66 Rhythm: Sinus Technical Quality: Adequate MEASUREMENTS (Male / Female) Normal Values 2D ECHO LVOT Diameter 2.1 cm LV Ejection Fraction MOD 2C 65.4 % LV Ejection Fraction 2C AL 65.1 % LA Diameter 3.5 cm LA Width 3.9 cm LA Height 5.3 cm RA Width 4.4 cm RA Height 5.4 cm Aorta at Sinotubular Diameter 2.1 cm M-MODE Aortic Annulus Diameter 2.8 cm LA Ao Ratio MM 1.3 MV E Point Septal Separation 0.8 cm DOPPLER AV Peak Velocity 248.7 cm/s LVOT Peak Velocity 101.0 cm/s AV Area Cont Eq vti 1.4 cm squared AV Area Cont Eq pk 1.4 cm squared MV Peak Velocity 81.0 cm/s MV Area PHT 4.3 cm squared Mitral E to A Ratio 0.8 MV E' Velocity 32.5 cm/s Mitral E to MV E' Ratio 9.2 Mitral E to LV E' Lateral Ratio 7.2 Mitral E to LV E' Septal Ratio 12.6 Right Atrial Pressure 8.0 mmHg RV Acceleration Time 0.1 s RV Ejection Time 0.3 s RV AcT/ET 0.3 FINDINGS Left Ventricle Normal left ventricular size, systolic function and wall thickness, with no regional wall motion abnormalities. Mild left ventricular hypertrophy. Left ventricular ejection fraction is estimated at 65%. Right Ventricle Normal right ventricular size and systolic function. Right Atrium Normal right atrial size. Left Atrium Normal left atrial size. Mitral Valve Thickened mitral valve. Trace mitral valve regurgitation. Aortic Valve Thickened aortic valve. Aortic valve sclerosis. No aortic valve stenosis. Trace aortic valve regurgitation. Tricuspid Valve Structurally normal tricuspid valve. Trace tricuspid valve regurgitation. Pulmonic Valve Structurally normal pulmonic valve. Mild pulmonary valve regurgitation. Pericardium No pericardial effusion. Aorta Normal size aortic root and proximal ascending aorta. IVC Inferior vena cava not visualized. CONCLUSIONS Technically difficult echo 1. Normal left ventricle systolic function, mild LVH, LVEF normal 65%. 2. Thickened and sclerotic aortic valve without any significant stenosis. 3. IVC not well-visualized, however RV and pulmonary pressures appear normal. Ro Anne MD (Electronically Signed) Final Date: 27 June 2023 13:30 S
[2023-06-26] MEDS: carvedilol 3.125 mg Tablet PO (15:23)
[2023-06-26 15:30] LABS: Chol HDL Ratio 1.99 mg/dL (0.0-4.40); Cholesterol 175 mg/dL (0-200); HDL Cholesterol 88 mg/dL (60-100); LDL Cholesterol Calculated 62 mg/dL (50-129); Triglycerides 123 mg/dL (0-150)
[2023-06-26] MEDS: enoxaparin 40 mg/0.4 mL Syringe SUBCUT (15:37)
[2023-06-26] MEDS: pantoprazole 40 mg SDV IVP (15:37)
[2023-06-26] MEDS: insulin regular-human 10 UNIT in SYRINGE 1 EACH IVP (15:38)
[2023-06-26] MEDS: dextrose 50% syringe 50 mL IVP (15:38)
[2023-06-26] MEDS: nitroglycerin drip 50 MG/250 ML PREMIX IV (15:48)
[2023-06-26] MEDS: vancomycin 1,250 MG/250 ML PIGGYBACK 250 MG IV (15:55)
[2023-06-26 15:56] LABS: Estmated Average Glucose 148; Hemoglobin A1C 6.8 % (4.0-6.0)
--- NOTE | 2023-06-26 15:59 | ECG_ITS ---
[facility] Test Date: 2023-06-26 Pat Name: Lauren Jose Department: Room: ICU06 Gender: Female Mental Health Director: : 1945 Requested By: Manny Gabriel Order Number: [id number] Olga MD: Ro Anne M.D. Measurements Intervals [place] Rate: 65 P: 0 KS: 0 QRS: 2 QRSD: 110 T: 6 QT: 431 QTc: 448 Interpretive Statements Significant artifact at baseline SINUS RHYTHM WITH HIGH GRADE AV BLOCK Unable to comment on ST changes due to baseline artifact Appears poor R wave progression across the chest lead Compared to ECG 06/26/2023 13:47:21 No significant change Electronically Signed On 06-27-2023 14:03:43 TECTONOPHYSICIST by Ro Anne M.D. [id number]
[2023-06-26] MEDS: dexmedeTOMIDine 0.9 % NaCL 400 MCG/100 ML PREMIX IV (16:13)
[2023-06-26 16:25] LABS: Glucose Point of Care 143 mg/dL (70-110)
--- NOTE | 2023-06-26 16:40 | PC.NURSE ---
Addendum entered by Vikas Durbin RN 06/26/23 16:58: Received patient at 1539 from DAVID german/ER. Patient is lethargic, mumbled speech. Alert to self and location, not to time or situation. Redness and bruising to the sacrum and bilateral buttocks upon arrival. HR: 60, SPO2: 93% on bipap, RR 25, Temp: 99. Blood pressure is 247/142. Nurse verified blood pressure manually and got a similar result. Nurse alerted Dr payne to blood pressure and recieved orders for nitroglycerin. Ultrasound guided IV started to right upper arm and nitro started. Original Note: Received patient at 1539 from DAVID german/JEROMY. Patient is lethargic, mumbled speech. Alert to self and location, not to time or situation. HR: 60, SPO2: 93% on bipap, RR 25, Temp: 99. Blood pressure is 247/142. Nurse verified blood pressure manually and got a similar result. Nurse alerted Dr payne to blood pressure and recieved orders for nitroglycerin. Ultrasound guided IV started to right upper arm and nitro started.
[2023-06-26 17:31] LABS: Glucose Point of Care 148 mg/dL (70-110)
[2023-06-26] MEDS: insulin lispro 100 unit/1 mL SUBCUT (18:10)
[2023-06-26 19:00] LABS: Adenovirus Not Detected (NOT DETECT); Chlamydia Pneumoniae Not Detected (NOT DETECT); Coronavirus 229E,HKU1,NL63,OC4 Not Detected (NOT DETECT); Human Metapneumovirus Not Detected (NOT DETECT); Human Rhinovirus/Enterovirus Not Detected (NOT DETECT); Influenza A Not Detected (NOT DETECT); Influenza A H1 Not Detected (NOT DETECT); Influenza A H1-2009 Not Detected (NOT DETECT); Influenza A H3 Not Detected (NOT DETECT); Influenza B Not Detected (NOT DETECT); Mycoplasma Pneumoniae Not Detected (NOT DETECT); Parainfluenza Virus Type 1 Not Detected (NOT DETECT); Parainfluenza Virus Type 2 Not Detected (NOT DETECT); Parainfluenza Virus Type 3 Not Detected (NOT DETECT); Parainfluenza Virus Type 4 Not Detected (NOT DETECT); Respiratory Syncytial Virus A Not Detected (NOT DETECT); Respiratory Syncytial Virus B Not Detected (NOT DETECT)
--- NOTE | 2023-06-26 19:03 | PC.NURSE ---
Shift SUmmary: Uneventful shift. Patient has rested in bed since arrival from ER. Briefly had precedex going to help calm her down but it was discontinued due to bradycardia. NItroglycerin started to manage hypertension.
[2023-06-26 19:11] LABS: SARS-COV-2 Detected (NOT DETECT)
[2023-06-26 19:33] LABS: Troponin 5 6HR 16.57 ng/L (0-10)
[2023-06-26 19:35] LABS: Troponin 5 6HR Delta -0.43 ng/L (0-12)
--- NOTE | 2023-06-26 19:36 | PC.NURSE ---
Patient tested positive for covid. NUrse alerted family members to positive result since they were at bedside and had contact today. Nurse alerted human resources supervisor of potential covid exposures at the facility, patient was not tested for covid or on precautions before arriving in ICU. Upon arrival in ICU she was tested and placed on precautions.
[2023-06-26] MEDS: FUROsemide 10 mg/mL SDV 4mL 40 MG IVP (20:18)
--- NOTE | 2023-06-26 20:39 | PC.NURSE ---
Spoke with regarding positive COVID for patient. to put in orders.
[2023-06-26] MEDS: morphine 4 mg/mL SDV 1 mL 2 MG IVP (21:14)
[2023-06-26 21:44] LABS: Glucose Point of Care 175 mg/dL (70-110)
--- NOTE | 2023-06-26 21:52 | PC.NURSE ---
Spoke with regarding patient confused and ripping off Bipap. Day shift had attempted precidex gtt but had been off due to bradycardia. Patient had received morphine but is still restless and pulling off BIPAP. ordered one time dose of IM Zyprexa.
[2023-06-26] MEDS: remdesivir 200 MG in sodium chloride 0.9% (100 ml) 60 ML 100 MG IV (22:41)
[2023-06-27] VITALS (99 sets, daily range): BP systolic 84–237; BP diastolic 53–148; PULSE 42–89; RESP 11–40; TEMP 36.6–37.3; O2SAT 74–99
[2023-06-27] MEDS: nitroglycerin drip 50 MG/250 ML PREMIX 33 MG IV (00:35)
--- NOTE | 2023-06-27 00:56 | PC.NURSE ---
Confirmed with Dr.Qamar mariella malloy to give Zyprexa. Dose was not given as patient stopped pulling at Bipap for a while but now has resumed pulling at lines and at Bipap.
[2023-06-27] MEDS: OLANZapine 10 mg VIAL IM (01:05)
[2023-06-27] MEDS: piperacillin-tazobactam 3.375 GM in sodium chloride 0.9% (plus) 50 ML IV ×3 (01:06→17:59)
[2023-06-27] MEDS: pantoprazole 40 mg SDV IVP ×2 (02:22→14:20)
[2023-06-27] MEDS: carvedilol 3.125 mg Tablet PO ×2 (02:22→14:38)
[2023-06-27] MEDS: vancomycin 1,250 MG/250 ML PIGGYBACK 250 MG IV ×2 (02:29→14:32)
[2023-06-27] MEDS: morphine 4 mg/mL SDV 1 mL 2 MG IVP ×3 (03:14→15:26)
[2023-06-27 04:10] LABS: Basophils % 0.2 %; Hematocrit 36.8 % (36-47); Lymphocytes # 0.6 10^3/uL (0.8-4.8); Lymphocytes % 12.2 %; Mean Corpuscular HGB Conc 28.5 g/dL (30-55); Mean Corpuscular Hemoglobin 27.5 pg (27-33); Mean Corpuscular Volume 96.3 fl (85-98); Mean Platelet Volume 9.5 fL (7.4-10.4); Monocytes # 0.4 10^3/uL (0.2-0.9); Monocytes % 8.7 %; Neutrophils # 3.76 10^3/uL (1.8-7.7); Neutrophils % 78.1 %; Nucleated Red Blood Cells % 0 %; Platelet Count 266 10^3/cmm (157-399); Red Blood Count 3.82 10^6/uL (3.85-5.65); Red Cell Distribution Width 14.8 % (12.1-15.1); White Blood Count 4.82 10^3/uL (3.29-11.43)
[2023-06-27] MEDS: ipratropium-albuterol 3 mL Neb INHALATION ×6 (04:16→23:29)
[2023-06-27 04:27] LABS: Alanine Aminotransferase 9 U/L (0-33); Albumin Level 2.9 g/dL (3.5-5.2); Alkaline Phosphatase 67 U/L (35-105); Anion Gap 12.9 (5-19); Aspartate Amino Transferase 11 U/L (0-32); Blood Urea Nitrogen 18 mg/dL (8-23); C Reactive Protein 37.6 mg/L (0.0-4.9); Carbon Dioxide 35 mmol/L (22-29); Chloride 98 mmol/L (98-107); Globulin 3.2 g/dL (1.3-4.6); Glucose 175 mg/dL (65-115); Magnesium 1.6 mg/dL (1.7-2.3); Osmolality Calculated 298 mOsm/kg (285-295); Phosphorus 1.9 mg/dL (2.5-4.5); Potassium 4.9 mmol/L (3.5-5.1); Sodium 141 mmol/L (136-145); Total Bilirubin 0.6 mg/dL (0.15-1.2); Total Protein 6.1 g/dL (6.6-8.7)
[2023-06-27 04:33] LABS: NT Pro B Type Natriuretic Pept 3437 pg/mL (0-450)
[2023-06-27 04:47] LABS: Arterial Blood Gas Hematocrit 32.6 % (37-47); Base Excess ABG 13.6 mmol/L (-2.0-2.0); Blood Gas Allen Test Pos; Blood Gas Sample Type Arterial; HCO3 ABG 40.8 mmol/L (22-26); PO2 ABG 81.7 mmHg (80.0-100.0)
[2023-06-27 04:48] LABS: Blood Gas Operator Identificat ED; Blood Gas Sample Site Radial, right; Blood Gas Tidal Volume 0.45; Oxygen Device BIPAP; PO2 FiO2 Ratio Arterial Blood 0
[2023-06-27 04:49] LABS: ABG PCO2 66.1 mmHg (35-45)
--- NOTE | 2023-06-27 05:28 | PC.NURSE ---
Nitro Drip: Nitro pulled by this nurse from the pyxis via destocking. Ent Nurse retrieved and took to ICU.
[2023-06-27] MEDS: nitroglycerin drip 50 MG/250 ML PREMIX 49.5 MG IV (06:47)
[2023-06-27 07:35] LABS: Glucose Point of Care 143 mg/dL (70-110)
[2023-06-27] MEDS: atorvastatin 40 mg Tablet 20 MG PO (08:27)
[2023-06-27] MEDS: clopidogrel 75 mg Tablet PO (08:27)
[2023-06-27] MEDS: dexamethasone 10 mg/mL INJ 6 MG IVP (08:35)
[2023-06-27] MEDS: nitroglycerin drip 50 MG/250 ML PREMIX 48 MG IV (08:36)
[2023-06-27] MEDS: insulin lispro 100 unit/1 mL SUBCUT ×3 (09:17→17:59)
[2023-06-27] MEDS: hyDRALAzine 10 mg Tablet PO ×3 (09:18→18:02)
[2023-06-27] MEDS: FUROsemide 10 mg/mL SDV 4mL 40 MG IVP ×2 (09:18→21:22)
[2023-06-27 11:22] LABS: Glucose Point of Care 148 mg/dL (70-110)
[2023-06-27] MEDS: nitroglycerin drip 50 MG/250 ML PREMIX 45 MG IV (13:03)
[2023-06-27] MEDS: enoxaparin 40 mg/0.4 mL Syringe SUBCUT (14:35)
--- NOTE | 2023-06-27 16:30 | P.PN_ITS ---
Subjective Subjective: Patient was seen this morning, she is alert to person, not to place, not to time she is encephalopathic, she is removing her BiPAP mask, was taken off Precedex drip due to bradycardia, she tested positive for COVID during night start Decadron, remdesivir, she can follow commands at times but becomes quite encephalopathic, Vitals/I&O/Wt Last Vital Signs Temp 98.4 F 06/27/23 13:00 Pulse 51 L 06/27/23 15:08 Resp 23 H 06/27/23 15:26 BP 155/76 06/27/23 15:00 Pulse Ox 97 06/27/23 15:26 O2 Del Method BiPAP 06/27/23 15:00 O2 Flow Rate 6 06/26/23 11:58 FiO2 35 06/27/23 15:03 06/27/23 06/27/23 06/27/23 06:59 14:59 22:59 Intake Total 706.625 / 1190.636 489.257 / 489.257 Output Total 1300 / 3300 Balance -593.375 / -2109.364 489.257 / 489.257 Weight last 48 hrs Weight 120.882 kg Weight 120.973 kg Weight 122 kg Weight 117.934 kg Physical Exam Const: COMMON NORMALS: no acute distress ORIENTATION/CONSCIOUSNESS: Yes awake, Yes oriented to person and Yes confused; not oriented to place and not oriented to time Resp: COMMON NORMALS: normal respiratory effort, No retractions and No use of accessory muscles AUSCULTATION: crackles and wheezes Cardio: COMMON NORMALS: regular rate, regular rhythm, S1 normal heart sound present and S2 normal heart sound present RATE: regular rate RHYTHM: regular rhythm HEART SOUNDS: S1 normal heart sound present and S2 normal heart sound present GI: COMMON NORMALS: Normal to inspection, nondistended, normoactive bowel mora nds present and non-tender Extremity: NARRATIVE EXTREMITY EXAM: 2+ pitting edema bilateral extremity Neuro: SENSORIUM/ORIENTATION: Yes oriented to person, No oriented to place and No oriented to time Psych: COMMON NORMALS: mental status grossly normal Urinary Catheter Management: Dumont: Cath Placed During This Visit: no Reason for Continuing Indwelling Catheter: Acute Urinary Retention or Obstruction Data 06/27/23 03:15 06/27/23 03:15 Micro: Microbiology 06/26/23 13:54 Blood Culture - Preliminary Blood NEGATIVE TO DATE 06/26/23 13:47 Blood Culture - Preliminary Blood NEGATIVE TO DATE A&P Assessment and plan (1) Acute encephalopathy: (2) Systolic CHF, acute: (3) Pulmonary edema: (4) Anasarca: (5) Acute respiratory failure with hypoxia and hypercapnia: (6) Morbid obesity: (7) Hyperkalemia: (8) COPD exacerbation: (9) Pneumonia due to COVID-19 virus: Plan Acute encephalopathy ? Secondary to COVID-19 pneumonia, COPD, CHF, pneumonia ? Aspiration precautions, neurochecks, ? Required several doses of Zyprexa for agitation during the night ? Precedex drip for agitation Acute hypoxic hypercarbic respiratory failure, ? Multifactorial, ? COPD exacerbation, ? Morbid obesity, ? Systolic CHF exacerbation, ? COVID-19 pneumonia ? Left lower lobe pneumonia ? Plan ? Continue BiPAP ? Low threshold for intubation, repeat ABG at 4 PM, ? Monitor PCO2, ? Monitor respiratory status, ? DuoNeb, -Budesonide ? Continue Lasix 40 mg IV every 12 hours ? Fluid restriction of 1000 cc, ? Cardiac echo, ? Continue vancomycin, Zosyn, ? Decadron 6 mg IV push every 24 hours, ? Remdesivir ? Sputum cultures, ? Blood cultures, COVID-19 pneumonia, as above, isolation History of COPD, on 5 L, noncompliant with BiPAP, ? Currently in COPD exacerbation, Morbid obesity, Systolic CHF ? Cardiac echo in 2019 ?CONCLUSIONS ?This is a limited echocardiogram with contrast performed to rule ?out LV thrombus and assess LV function.? LV systolic function is ?moderate to severely reduced with EF of 35 to 40%.? There is ?severe hypokinesis of apical wall.? Global mild to moderate ?hypokinesis is noted.? No LV thrombus is present. ?Grossly RV function appears at least moderately reduced. ?Compared to prior echocardiogram from 07/24/2020, LV systolic ?function has improved and is 35 to 40% now. ? Fluid restrictions at 1000 cc, ? Diuresis as above Left lower lobe pneumonia, as above NSTEMI, Type I versus type II, ? Cardiac catheterization in 2019 showed ?Conclusions ? 1. Nonobstructive coronary artery disease. ? 2. Significantly elevated LVEDP. ? 3. Likely Takotsubo cardiomyopathy versus myocarditis. Given patient's very high LVEDP ventriculography was not performed. Will need echocardiogram. ? 4. There is moderate coronary artery disease with one vessel disease. ? Serial EKGs, serial troponins, telemetry monitoring, Type 2 diabetes mellitus, low-dose sliding scale, Hyperkalemia potassium resolved Abdominal distention, with right upper quadrant pain, CT scan abdomen pelvis, keep n.p.o., monitor liver function,, History of torsades, in the past requiring CPR, check magnesium level, monitor troponins Lovenox for DVT prophylaxis, Protonix for GI prophylaxis, CODE STATUS, patient is a full code, spoke to patient's daughter in detail she does not want prolonged mechanical ventilation, is okay for intubation for about 24 hours, Attestations Medical Necessity Statement*: Patient requires hospitalization for acute encephalopathy, COVID-19 pneumonia, pneumonia, hypercarbic respiratory failure, CHF, COPD, ICU level care, on Precedex drip, on BiPAP, Diagnoses Acute encephalopathy G93.40 Systolic CHF, acute I50.21 Pulmonary edema J81.1 Anasarca R60.1 Acute respiratory failure with hypoxia and hypercapnia J96.01; J96.02 Morbid obesity E66.01 Hyperkalemia E87.5 COPD exacerbation J44.1 Pneumonia due to COVID-19 virus U07.1; J12.82
[2023-06-27 17:04] LABS: Glucose Point of Care 172 mg/dL (70-110)
--- NOTE | 2023-06-27 18:25 | PC.NURSE ---
Dr Wu notified that ICU and CSU out of Nitro. New orders for Clonidine 0.1 BID Po start now and Cardene gtt received. Awaiting verification from pharmacy.
[2023-06-27] MEDS: nicardipine 20 MG/200 ML PREMIX 50 MG IV ×2 (19:12→23:10)
--- NOTE | 2023-06-27 19:29 | PC.NURSE ---
Shift summary: Pt rested in bed throughout shift. She started the shift confused, drowsing and at times agitated. She can now tell you her name and . She follow commands and redirects much better now. She required a sitter today because she was pulling at her BiPap mask so much, that has started to lessen. She was put back on Precedex for a few hours to help with the agitation, her heart rate became bradycardic and gtt stopped. She had been on an high dose of Nitro gtt most of the shift 150 ( briefly) to 170mcg/min. She has been switched over to Cardene at shift change, started at 5mg/hour.. waiting pharmacy for the Clonidine. She has been afebrile today. Her BIPAp is at 35% FIO2. SHe has had 1175 of urine output this hsift. NO bowel movement noted but she does have flatulence.
[2023-06-27] MEDS: remdesivir 100 MG in sodium chloride 0.9% (100 ml) 100 ML IV (21:22)
[2023-06-27 21:45] LABS: Glucose Point of Care 139 mg/dL (70-110)
[2023-06-28] VITALS (49 sets, daily range): BP systolic 148–221; BP diastolic 36–105; PULSE 43–77; RESP 9–33; TEMP 36.6–37.3; O2SAT 90–99
[2023-06-28] MEDS: piperacillin-tazobactam 3.375 GM in sodium chloride 0.9% (plus) 50 ML IV ×3 (02:04→17:27)
[2023-06-28] MEDS: nicardipine 20 MG/200 ML PREMIX 50 MG IV (02:48)
[2023-06-28] MEDS: pantoprazole 40 mg SDV IVP ×2 (02:48→15:46)
[2023-06-28 02:55] LABS: Basophils % 0.2 %; Hematocrit 37.4 % (36-47); Lymphocytes # 0.9 10^3/uL (0.8-4.8); Mean Corpuscular HGB Conc 29.9 g/dL (30-55); Mean Corpuscular Hemoglobin 27.7 pg (27-33); Mean Corpuscular Volume 92.6 fl (85-98); Mean Platelet Volume 9.7 fL (7.4-10.4); Monocytes # 0.7 10^3/uL (0.2-0.9); Monocytes % 11.9 %; Nucleated Red Blood Cells % 0 %; Platelet Count 290 10^3/cmm (157-399); Red Blood Count 4.04 10^6/uL (3.85-5.65); Red Cell Distribution Width 15.1 % (12.1-15.1); White Blood Count 5.63 10^3/uL (3.29-11.43)
[2023-06-28 03:13] LABS: Vancomycin Trough 21.5 ug/mL (10-15)
[2023-06-28 03:14] LABS: Alanine Aminotransferase 10 U/L (0-33); Albumin Level 3.2 g/dL (3.5-5.2); Alkaline Phosphatase 68 U/L (35-105); Anion Gap 12.3 (5-19); Aspartate Amino Transferase 12 U/L (0-32); Blood Urea Nitrogen 27 mg/dL (8-23); C Reactive Protein 24.1 mg/L (0.0-4.9); Calcium 9.7 mg/dL (8.5-10.5); Carbon Dioxide 38 mmol/L (22-29); Chloride 94 mmol/L (98-107); Creatinine Clr Calc Pharmacy 91.3331; Globulin 3.4 g/dL (1.3-4.6); Glucose 151 mg/dL (65-115); Magnesium 1.5 mg/dL (1.7-2.3); Osmolality Calculated 298 mOsm/kg (285-295); Phosphorus 3.5 mg/dL (2.5-4.5); Potassium 4.3 mmol/L (3.5-5.1); Sodium 140 mmol/L (136-145); Total Bilirubin 0.6 mg/dL (0.15-1.2); Total Protein 6.6 g/dL (6.6-8.7)
[2023-06-28 03:27] LABS: NT Pro B Type Natriuretic Pept 1265 pg/mL (0-450); Procalcitonin 0.14 ng/mL (0-0.5)
[2023-06-28] MEDS: ipratropium-albuterol 3 mL Neb INHALATION ×6 (03:52→23:35)
[2023-06-28 04:15] LABS: ABG PH Result 7.42 (7.35-7.45); Arterial Blood Gas Hematocrit 35.1 % (37-47); Base Excess ABG 14.8 mmol/L (-2.0-2.0); Blood Gas Allen Test Pos; Blood Gas Sample Site Radial, left; Blood Gas Sample Type Arterial; Blood Gas Tidal Volume 0.45; Oxygen Device BIPAP; PO2 ABG 80.8 mmHg (80.0-100.0); PO2 FiO2 Ratio Arterial Blood 0
--- NOTE | 2023-06-28 04:19 | PC.NURSE ---
Per pharmacy - Vanc T 21.5 - Hold 0300 dose of Vanc.
[2023-06-28 04:20] LABS: ABG PCO2 65.4 mmHg (35-45)
--- NOTE | 2023-06-28 05:01 | PC.NURSE ---
Shift Summary Pt has been responsive to stimuli through out shift, answered name, and place correctly. Speech is delayed, pt will fall asleep while trying to answer question. Sausage Stringer are equal and is able to move all 4 extremities. Pt does periodically have body twitch. Complete bed bath given, redness under breasts, redness and bruising to right upper buttock. B/P have not charted appropriately. Blood pressure has been labile. Systolic ranging from 120's - low 200's without titration of cardene gtt through majority of the night. Coreg held due to low HR per physician. Lowest HR seen was 38 BPM. Vanc held due to Vanc T 21.5. When pt taken off bipap for oral care, pt desated to 84% immediately.
--- NOTE | 2023-06-28 05:17 | XRR_ITS ---
PROCEDURE INFORMATION: Exam: XR Chest Exam date and time: 06/28/2023 6:32 AM Age: 78 years old Clinical indication: Shortness of breath; Additional info: Bipap dependent TECHNIQUE: Imaging protocol: Radiologic exam of the chest. Views: 1 view. COMPARISON: CT angio chest w abd pel w con 06/26/2023 2:20 PM FINDINGS: Lungs: Developing CHF, currently with vascular engorgement as well as interstitial and mild alveolar edema. Pleural spaces: Unremarkable. No pleural effusion. No pneumothorax. Heart/Mediastinum: See Vasculature finding. Vasculature: Stable cardiomegaly and uncoiling of the thoracic aorta. Bones/joints: Lower thoracic neurostimulator. XR/XR chest 1V portable [id number] IMPRESSION: Developing CHF.
[2023-06-28] MEDS: nicardipine 20 MG/200 ML PREMIX 75 MG IV ×3 (06:16→12:01)
[2023-06-28 06:28] LABS: Glucose Point of Care 132 mg/dL (70-110)
[2023-06-28] MEDS: FUROsemide 10 mg/mL SDV 10mL 60 MG IVP (09:03)
[2023-06-28] MEDS: atorvastatin 40 mg Tablet 20 MG PO (09:05)
[2023-06-28] MEDS: losartan 50 mg Tablet 100 MG PO (09:05)
[2023-06-28] MEDS: hyDRALAzine 10 mg Tablet PO ×4 (09:05→20:38)
[2023-06-28] MEDS: clopidogrel 75 mg Tablet PO (09:05)
[2023-06-28] MEDS: cloNIDine 0.1 mg Tablet PO ×2 (09:06→17:28)
[2023-06-28] MEDS: albumin 25 G/100 ML BAG 60 G IV (09:06)
[2023-06-28] MEDS: dexamethasone 10 mg/mL INJ 6 MG IVP (09:08)
[2023-06-28 12:01] LABS: Glucose Point of Care 172 mg/dL (70-110)
[2023-06-28] MEDS: insulin lispro 100 unit/1 mL SUBCUT ×2 (12:02→17:40)
--- NOTE | 2023-06-28 13:38 | PM.PN ---
Subjective Subjective: Patient was seen this morning, she remains on a Cardene drip, blood pressures 150s over 60s, she is alert to person, not to place, not to time she can follow commands she remains encephalopathic on BiPAP, she has no complaints except that she wants to try to eat something, Vitals/I&O/Wt Last Vital Signs Temp 97.8 F 06/28/23 12:00 Pulse 59 L 06/28/23 12:06 Resp 22 H 06/28/23 12:00 BP 148/56 06/28/23 12:00 Pulse Ox 96 06/28/23 12:06 O2 Del Method BiPAP 06/28/23 12:00 O2 Flow Rate 4 06/28/23 11:56 FiO2 35 06/28/23 12:06 06/27/23 06/28/23 06/28/23 22:59 06:59 14:59 Intake Total 453.5 / 942.757 676.667 / 1619.424 661.25 / 661.25 Output Total 1175 / 1175 2300 / 3475 Balance -721.5 / -232.243 -1623.333 / -1855.576 661.25 / 661.25 Weight last 48 hrs Weight 121.472 kg Weight 120.882 kg Weight 120.973 kg Weight 122 kg Physical Exam Const: COMMON NORMALS: no acute distress Neck/C-Spine: COMMON NORMALS: no JVD Resp: COMMON NORMALS: normal respiratory effort, No retractions and No use of accessory muscles AUSCULTATION: crackles Cardio: COMMON NORMALS: no JVD, regular rate, regular rhythm, S1 normal heart sound present and S2 normal heart sound present RATE: regular rate RHYTHM: regular rhythm HEART SOUNDS: S1 normal heart sound present and S2 normal heart sound present GI: COMMON NORMALS: Normal to inspection, nondistended, normoactive bowel sounds present Psych: COMMON NORMALS: mental status grossly normal Skin: NARRATIVE SKIN EXAM: 2+ pitting edema Urinary Catheter Management: Dumont: Cath Placed During This Visit: no Reason for Continuing Indwelling Catheter: Accurate Measurement of Urinary Output in Critically Ill Patients Data 06/28/23 02:35 06/28/23 02:35 Micro: Microbiology 06/26/23 13:54 Blood Culture - Preliminary Blood NEGATIVE TO DATE 06/26/23 13:47 Blood Culture - Preliminary Blood NEGATIVE TO DATE A&P Assessment and plan (1) Acute encephalopathy: (2) Systolic CHF, acute: (3) Pulmonary edema: (4) Anasarca: (5) Acute respiratory failure with hypoxia and hypercapnia: (6) Morbid obesity: (7) Hyperkalemia: (8) COPD exacerbation: (9) Pneumonia due to COVID-19 virus: (10) Hypertensive emergency: Plan HTN EMERGENCY -currently on cardene drip -on clonidine, hydralazine, on norvasc, losartan Acute encephalopathy ? Secondary to COVID-19 pneumonia, COPD, CHF, pneumonia ? Aspiration precautions, neurochecks, ? Precedex drip for agitation Acute hypoxic hypercarbic respiratory failure, ? Multifactorial, ? COPD exacerbation, ? Morbid obesity, ? Systolic CHF exacerbation, ? COVID-19 pneumonia ? Left lower lobe pneumonia ? Plan ? Continue BiPAP ? Low threshold for intubation, repeat ABG at 4 PM, ? Monitor PCO2, ? Monitor respiratory status, ? DuoNeb, -Budesonide ? Lasix 60 mg IV push with albumin, 1 dose of Aldactone tonight ? Fluid restriction of 1000 cc, ? Cardiac echo, ? Continue Zosyn, ? Decadron 6 mg IV push every 24 hours, ? Remdesivir ? Sputum cultures, ? Blood cultures, COVID-19 pneumonia, as above, isolation History of COPD, on 5 L, noncompliant with BiPAP, ? Currently in COPD exacerbation, Morbid obesity, Systolic CHF ? Cardiac echo in 2019 ?CONCLUSIONS ?This is a limited echocardiogram with contrast performed to rule ?out LV thrombus and assess LV function.? LV systolic function is ?moderate to severely reduced with EF of 35 to 40%.? There is ?severe hypokinesis of apical wall.? Global mild to moderate ?hypokinesis is noted.? No LV thrombus is present. ?Grossly RV function appears at least moderately reduced. ?Compared to prior echocardiogram from 07/24/2020, LV systolic ?function has improved and is 35 to 40% now. ? Fluid restrictions at 1000 cc, ? Diuresis as above Left lower lobe pneumonia, as above NSTEMI, Type I versus type II, ? Cardiac catheterization in 2019 showed ?Conclusions ? 1. Nonobstructive coronary artery disease. ? 2. Significantly elevated LVEDP. ? 3. Likely Takotsubo cardiomyopathy versus myocarditis. Given patient's very high LVEDP ventriculography was not performed. Will need echocardiogram. ? 4. There is moderate coronary artery disease with one vessel disease. ? Serial EKGs, serial troponins, telemetry monitoring, Type 2 diabetes mellitus, low-dose sliding scale, Hyperkalemia potassium resolved Abdominal distention, with right upper quadrant pain, CT scan abdomen pelvis, keep n.p.o., monitor liver function,, History of torsades, in the past requiring CPR, check magnesium level, monitor troponins Lovenox for DVT prophylaxis, Protonix for GI prophylaxis, CODE STATUS, patient is a full code, spoke to patient's daughter in detail she does not want prolonged mechanical ventilation, is okay for intubation for about 24 hours, Attestations Medical Necessity Statement*: patient requires hospitalization for htn emergency on cardene drip, covid 19, pna, chf exacerbation, enecphalpathy and High MDM includes number and complexity of problems actively addressed during encounter, amount and/or complexity of data reviewed/ordered and described risk of complication, morbidity or mortality of management as documented Diagnoses Acute encephalopathy G93.40 Systolic CHF, acute I50.21 Pulmonary edema J81.1 Anasarca R60.1 Acute respiratory failure with hypoxia and hypercapnia J96.01; J96.02 Morbid obesity E66.01 Hyperkalemia E87.5 COPD exacerbation J44.1 Pneumonia due to COVID-19 virus U07.1; J12.82 Hypertensive emergency I16.1
[2023-06-28] MEDS: enoxaparin 40 mg/0.4 mL Syringe SUBCUT (15:45)
[2023-06-28] MEDS: magnesium lactate 84 mg Tablet PO (15:45)
[2023-06-28] MEDS: amlodipine 10 mg Tablet PO (15:45)
[2023-06-28 17:40] LABS: Glucose Point of Care 188 mg/dL (70-110)
[2023-06-28] MEDS: nicardipine 20 MG/200 ML PREMIX 25 MG IV (17:40)
[2023-06-28] MEDS: remdesivir 100 MG in sodium chloride 0.9% (100 ml) 100 ML IV (20:41)
[2023-06-28 20:52] LABS: Glucose Point of Care 169 mg/dL (70-110)
[2023-06-29] VITALS (110 sets, daily range): BP systolic 97–272; BP diastolic 60–111; PULSE 49–147; RESP 13–37; TEMP 36.6–36.9; O2SAT 84–99
[2023-06-29] MEDS: nicardipine 20 MG/200 ML PREMIX 40 MG IV (00:06)
--- NOTE | 2023-06-29 01:21 | PC.NURSE ---
Skin assessment: Rash under breast has resolved, removed from flow sheet.
[2023-06-29] MEDS: piperacillin-tazobactam 3.375 GM in sodium chloride 0.9% (plus) 50 ML IV ×3 (01:28→17:41)
[2023-06-29] MEDS: pantoprazole 40 mg SDV IVP ×2 (02:18→14:14)
[2023-06-29] MEDS: morphine 4 mg/mL SDV 1 mL 2 MG IVP ×2 (02:34→23:44)
[2023-06-29] MEDS: ipratropium-albuterol 3 mL Neb INHALATION ×6 (03:33→23:15)
[2023-06-29 03:57] LABS: ABG PCO2 59.4 mmHg (35-45); ABG PH Result 7.46 (7.35-7.45); Arterial Blood Gas Hematocrit 41.3 % (37-47); Base Excess ABG 15.4 mmol/L (-2.0-2.0); Blood Gas Sample Type Arterial; HCO3 ABG 42.2 mmol/L (22-26); PO2 ABG 79.2 mmHg (80.0-100.0)
[2023-06-29 03:59] LABS: Blood Gas Sample Site Brachial, left; Oxygen Device BIPAP; PO2 FiO2 Ratio Arterial Blood 0
[2023-06-29 04:36] LABS: Hematocrit 35.9 % (36-47); Lymphocytes # 0.5 10^3/uL (0.8-4.8); Mean Corpuscular HGB Conc 30.6 g/dL (30-55); Mean Corpuscular Hemoglobin 27.7 pg (27-33); Mean Corpuscular Volume 90.4 fl (85-98); Mean Platelet Volume 9.6 fL (7.4-10.4); Monocytes # 0.5 10^3/uL (0.2-0.9); Monocytes % 10.1 %; Neutrophils % 78.3 %; Nucleated Red Blood Cells % 0 %; Platelet Count 308 10^3/cmm (157-399); Red Blood Count 3.97 10^6/uL (3.85-5.65); White Blood Count 4.73 10^3/uL (3.29-11.43)
[2023-06-29 04:45] LABS: Alanine Aminotransferase 8 U/L (0-33); Albumin Level 3.2 g/dL (3.5-5.2); Alkaline Phosphatase 58 U/L (35-105); Anion Gap 15.7 (5-19); Aspartate Amino Transferase 17 U/L (0-32); Blood Urea Nitrogen 28 mg/dL (8-23); C Reactive Protein 12.7 mg/L (0.0-4.9); Calcium 8.9 mg/dL (8.5-10.5); Carbon Dioxide 36 mmol/L (22-29); Chloride 92 mmol/L (98-107); Glucose 173 mg/dL (65-115); Magnesium 1.6 mg/dL (1.7-2.3); Osmolality Calculated 300 mOsm/kg (285-295); Phosphorus 3.9 mg/dL (2.5-4.5); Potassium 3.7 mmol/L (3.5-5.1); Sodium 140 mmol/L (136-145); Total Protein 6.2 g/dL (6.6-8.7)
[2023-06-29 04:59] LABS: NT Pro B Type Natriuretic Pept 1433 pg/mL (0-450); Procalcitonin 0.11 ng/mL (0-0.5)
[2023-06-29] MEDS: nicardipine 20 MG/200 ML PREMIX 50 MG IV (05:28)
[2023-06-29] MEDS: acetaminophen 325 mg Tablet 650 MG PO ×2 (06:24→18:06)
[2023-06-29 07:29] LABS: Glucose Point of Care 163 mg/dL (70-110)
[2023-06-29] MEDS: dexamethasone 10 mg/mL INJ 6 MG IVP (08:09)
[2023-06-29] MEDS: magnesium lactate 84 mg Tablet PO ×2 (08:10→17:42)
[2023-06-29] MEDS: losartan 50 mg Tablet 100 MG PO (08:10)
[2023-06-29] MEDS: cloNIDine 0.1 mg Tablet PO ×2 (08:10→17:42)
[2023-06-29] MEDS: atorvastatin 40 mg Tablet 20 MG PO (08:10)
[2023-06-29] MEDS: clopidogrel 75 mg Tablet PO (08:10)
[2023-06-29] MEDS: hyDRALAzine 10 mg Tablet PO (08:11)
[2023-06-29] MEDS: amlodipine 10 mg Tablet PO (08:11)
[2023-06-29] MEDS: insulin lispro 100 unit/1 mL SUBCUT ×3 (08:11→18:06)
[2023-06-29] MEDS: nicardipine 20 MG/200 ML PREMIX 75 MG IV ×2 (09:37→21:29)
--- NOTE | 2023-06-29 11:10 | PC.SOCIAL ---
IMM Update Pg. 2 of IMM updated and reviewed with patient, who verbalized understanding. Copy provided.
[2023-06-29 11:30] LABS: Glucose Point of Care 202 mg/dL (70-110)
[2023-06-29] MEDS: hyDRALAzine 25 mg Tablet PO ×3 (12:13→20:47)
[2023-06-29] MEDS: enoxaparin 40 mg/0.4 mL Syringe SUBCUT (14:13)
--- NOTE | 2023-06-29 15:14 | P.PN_ITS ---
Subjective Subjective: Patient was seen this morning, she is much more alert and awake, she follows all commands, she tells that she is here in the hospital because she has COVID-19, she does report shortness of breath, she reports she used the BiPAP throughout the night, currently on 4 L, denies any nausea, no vomiting, she tells me that she has been walking at home she lives with her daughter Vitals/I&O/Wt Last Vital Signs Temp 98.4 F 06/29/23 12:20 Pulse 53 L 06/29/23 15:00 Resp 17 06/29/23 15:00 BP 194/81 06/29/23 15:00 Pulse Ox 95 06/29/23 15:00 O2 Del Method Nasal Cannula 06/29/23 11:05 O2 Flow Rate 4 06/29/23 11:05 FiO2 35 06/29/23 14:49 06/29/23 06/29/23 06/29/23 06:59 14:59 22:59 Intake Total 400.250 / 1879.500 936.667 / 936.667 Output Total 1200 / 3400 Balance -799.750 / -1520.500 936.667 / 936.667 Weight last 48 hrs Weight 118.478 kg Weight 121.472 kg Physical Exam Const: COMMON NORMALS: no acute distress and patient oriented x3 Resp: COMMON NORMALS: normal respiratory effort, No retractions and No use of accessory muscles AUSCULTATION: crackles and wheezes Cardio: COMMON NORMALS: regular rate, regular rhythm, S1 normal heart sound present and S2 normal heart sound present RATE: regular rate RHYTHM: regular rhythm HEART SOUNDS: S1 normal heart sound present and S2 normal heart sound present GI: COMMON NORMALS: Normal to inspection, nondistended, normoactive bowel sounds present and non-tender Extremity: NARRATIVE EXTREMITY EXAM: 1+edema Neuro: COMMON NORMALS: patient oriented x3 Psych: COMMON NORMALS: mental status grossly normal Urinary Catheter Management: Dumont: Cath Placed During This Visit: no Reason for Continuing Indwelling Catheter: Accurate Measurement of Urinary Output in Critically Ill Patients Data 06/29/23 03:35 06/29/23 03:35 A&P Assessment and plan (1) Acute encephalopathy: (2) Systolic CHF, acute: (3) Pulmonary edema: (4) Anasarca: (5) Acute respiratory failure with hypoxia and hypercapnia: (6) Morbid obesity: (7) Hyperkalemia: (8) COPD exacerbation: (9) Pneumonia due to COVID-19 virus: (10) Hypertensive emergency: Plan HTN EMERGENCY -currently on cardene drip, wean off -on clonidine, hydralazine, on norvasc, losartan, losartan Acute encephalopathy, resolved ? Secondary to COVID-19 pneumonia, COPD, CHF, pneumonia ? Aspiration precautions, neurochecks, ? Precedex drip for agitation Acute hypoxic hypercarbic respiratory failure, ? Multifactorial, ? COPD exacerbation, ? Morbid obesity, ? Systolic CHF exacerbation, ? COVID-19 pneumonia ? Left lower lobe pneumonia ? Plan ? Continue BiPAP, recommended compliance with BiPAP during the night to help wit h hypercarbia, she is agreeable I feel that she will clinically benefit from BiPAP at home we will see if we can arrange that for her ? Low threshold for intubation, repeat ABG at 4 PM, ? Monitor PCO2, ? Monitor respiratory status, ? DuoNeb, -Budesonide ? Lasix 40 mg IV push, with metolazone ? Fluid restriction of 1000 cc, ? Cardiac echo, ? Continue Zosyn, ? Decadron 6 mg IV push every 24 hours, ? Remdesivir ? Sputum cultures, ? Blood cultures, COVID-19 pneumonia, as above, isolation History of COPD, on 5 L, noncompliant with BiPAP, ? Currently in COPD exacerbation, Morbid obesity, Systolic CHF ? Cardiac echo in 2019 ?CONCLUSIONS ?This is a limited echocardiogram with contrast performed to rule ?out LV thrombus and assess LV function.? LV systolic function is ?moderate to severely reduced with EF of 35 to 40%.? There is ?severe hypokinesis of apical wall.? Global mild to moderate ?hypokinesis is noted.? No LV thrombus is present. ?Grossly RV function appears at least moderately reduced. ?Compared to prior echocardiogram from 07/24/2020, LV systolic ?function has improved and is 35 to 40% now. ? Fluid restrictions at 1000 cc, ? Diuresis as above Left lower lobe pneumonia, as above NSTEMI, Type I versus type II, ? Cardiac catheterization in 2019 showed ?Conclusions ? 1. Nonobstructive coronary artery disease. ? 2. Significantly elevated LVEDP. ? 3. Likely Takotsubo cardiomyopathy versus myocarditis. Given patient's very high LVEDP ventriculography was not performed. Will need echocardiogram. ? 4. There is moderate coronary artery disease with one vessel disease. ? Serial EKGs, serial troponins, telemetry monitoring, Type 2 diabetes mellitus, low-dose sliding scale, Hyperkalemia potassium resolved Abdominal distention, with right upper quadrant pain, CT scan abdomen pelvis, within normal limits, monitor, History of torsades, in the past requiring CPR, check magnesium level, monitor troponins Lovenox for DVT prophylaxis, Protonix for GI prophylaxis, CODE STATUS, patient is a full code, spoke to patient's daughter in detail she does not want prolonged mechanical ventilation, is okay for intubation for about 24 hours, Wean off Cardene drip, titrate p.o. blood pressure medications diuresis, increased dose of Aldactone, continue remdesivir continue antibiotics, Attestations Medical Necessity Statement*: Patient requires hospitalization hypertensive emergency, remains on Cardene drip, requiring diuresis for CHF, requiring BiPAP for COPD, requiring antibiotics for pneumonia, requiring remdesivir, for COVID-19 pneumonia Diagnoses Acute encephalopathy G93.40 Systolic CHF, acute I50.21 Pulmonary edema J81.1 Anasarca R60.1 Acute respiratory failure with hypoxia and hypercapnia J96.01; J96.02 Morbid obesity E66.01 Hyperkalemia E87.5 COPD exacerbation J44.1 Pneumonia due to COVID-19 virus U07.1; J12.82 Hypertensive emergency I16.1
[2023-06-29] MEDS: nicardipine 20 MG/200 ML PREMIX 25 MG IV (17:41)
[2023-06-29] MEDS: spironolactone 25 mg Tablet 50 MG PO (17:42)
[2023-06-29 18:05] LABS: Glucose Point of Care 242 mg/dL (70-110)
[2023-06-29] MEDS: remdesivir 100 MG in sodium chloride 0.9% (100 ml) 100 ML IV (20:47)
[2023-06-29 21:14] LABS: Glucose Point of Care 269 mg/dL (70-110)
[2023-06-29] MEDS: nicardipine 20 MG/200 ML PREMIX 100 MG IV (23:44)
[2023-06-30] VITALS (103 sets, daily range): BP systolic 105–210; BP diastolic 57–138; PULSE 56–125; RESP 11–31; TEMP 36.7–36.8; O2SAT 83–98
[2023-06-30] MEDS: pantoprazole 40 mg SDV IVP ×2 (02:21→15:31)
[2023-06-30] MEDS: piperacillin-tazobactam 3.375 GM in sodium chloride 0.9% (plus) 50 ML IV ×3 (02:22→17:55)
[2023-06-30] MEDS: acetaminophen 325 mg Tablet 650 MG PO ×2 (02:29→11:00)
[2023-06-30 08:21] LABS: ABG PH Result 7.43 (7.35-7.45); Arterial Blood Gas Hematocrit 36.2 % (37-47); Base Excess ABG 13.2 mmol/L (-2.0-2.0); Blood Gas Allen Test Pos; Blood Gas Sample Site Brachial, left; Blood Gas Sample Type Arterial; Oxygen Device BIPAP; PO2 FiO2 Ratio Arterial Blood 0
[2023-06-30 08:22] LABS: Glucose Point of Care 189 mg/dL (70-110)
[2023-06-30 08:27] LABS: Alanine Aminotransferase 10 U/L (0-33); Albumin Level 3.3 g/dL (3.5-5.2); Alkaline Phosphatase 57 U/L (35-105); Anion Gap 15.6 (5-19); Aspartate Amino Transferase 12 U/L (0-32); Blood Urea Nitrogen 34 mg/dL (8-23); Calcium 8.8 mg/dL (8.5-10.5); Carbon Dioxide 37 mmol/L (22-29); Chloride 94 mmol/L (98-107); Creatinine Clr Calc Pharmacy 89.5167; Globulin 2.3 g/dL (1.3-4.6); Glucose 211 mg/dL (65-115); Magnesium 1.7 mg/dL (1.7-2.3); NT Pro B Type Natriuretic Pept 1233 pg/mL (0-450); Osmolality Calculated 310 mOsm/kg (285-295); Phosphorus 4.1 mg/dL (2.5-4.5); Potassium 3.6 mmol/L (3.5-5.1); Procalcitonin 0.08 ng/mL (0-0.5); Sodium 143 mmol/L (136-145); Total Bilirubin 0.7 mg/dL (0.15-1.2); Total Protein 5.6 g/dL (6.6-8.7)
[2023-06-30 08:28] LABS: C Reactive Protein 7.5 mg/L (0.0-4.9)
[2023-06-30] MEDS: losartan 50 mg Tablet 100 MG PO (08:53)
[2023-06-30] MEDS: atorvastatin 40 mg Tablet 20 MG PO (08:53)
[2023-06-30] MEDS: spironolactone 25 mg Tablet 50 MG PO (08:53)
[2023-06-30] MEDS: cloNIDine 0.1 mg Tablet PO ×2 (08:53→17:55)
[2023-06-30] MEDS: hyDRALAzine 25 mg Tablet PO ×4 (08:53→20:53)
[2023-06-30] MEDS: magnesium lactate 84 mg Tablet PO ×2 (08:53→17:55)
[2023-06-30] MEDS: clopidogrel 75 mg Tablet PO (08:54)
[2023-06-30] MEDS: amlodipine 10 mg Tablet PO (08:54)
[2023-06-30] MEDS: dexamethasone 10 mg/mL INJ 6 MG IVP (08:54)
[2023-06-30] MEDS: insulin lispro 100 unit/1 mL SUBCUT ×3 (08:54→18:32)
[2023-06-30] MEDS: ipratropium-albuterol 3 mL Neb INHALATION ×4 (09:16→20:13)
[2023-06-30 09:19] LABS: Hematocrit 37.7 % (36-47); Lymphocytes # 0.5 10^3/uL (0.8-4.8); Mean Corpuscular HGB Conc 29.7 g/dL (30-55); Mean Corpuscular Hemoglobin 27.5 pg (27-33); Mean Corpuscular Volume 92.4 fl (85-98); Mean Platelet Volume 9.4 fL (7.4-10.4); Monocytes # 0.6 10^3/uL (0.2-0.9); Monocytes % 12.7 %; Neutrophils # 3.87 10^3/uL (1.8-7.7); Neutrophils % 77.7 %; Nucleated Red Blood Cells % 0 %; Platelet Count 306 10^3/cmm (157-399); Red Blood Count 4.08 10^6/uL (3.85-5.65); Red Cell Distribution Width 14.6 % (12.1-15.1); White Blood Count 4.98 10^3/uL (3.29-11.43)
[2023-06-30] MEDS: potassium chloride ER 20 mEq Tablet 40 MEQ PO (10:04)
[2023-06-30] MEDS: FUROsemide 10 mg/mL SDV 4mL 40 MG IVP (10:05)
[2023-06-30] MEDS: isosorbide mononitrate ER 30 mg Tablet PO (11:00)
[2023-06-30 11:59] LABS: Glucose Point of Care 214 mg/dL (70-110)
[2023-06-30] MEDS: chlorthalidone 25 mg Tablet PO (12:48)
--- NOTE | 2023-06-30 14:00 | P.PN_ITS ---
Subjective 2 Subjective: Patient was seen this morning, she denies any fevers, no chills, no cough, remains on Cardene drip, discussed her persistent hypertension, no chest pain, no palpitations, no strokelike symptoms Vitals/I&O/Wt Last Vital Signs Temp 97.9 F 06/29/23 23:45 Pulse 61 06/30/23 13:15 Resp 19 H 06/30/23 13:15 BP 162/81 06/30/23 13:15 Pulse Ox 94 06/30/23 13:15 O2 Del Method Nasal Cannula 06/30/23 11:26 O2 Flow Rate 2 06/30/23 11:26 FiO2 35 06/30/23 01:59 06/29/23 06/30/23 06/30/23 22:59 06:59 14:59 Intake Total 811.250 / 1747.917 353.751 / 2101.668 239.999 / 239.999 Output Total 450 / 450 Balance 361.250 / 1297.917 353.751 / 1651.668 239.999 / 239.999 Weight last 48 hrs Weight 118.478 kg Physical Exam 2 Const: COMMON NORMALS: no acute distress and patient oriented x3 Resp: COMMON NORMALS: normal respiratory effort, No retractions, No use of accessory muscles and clear to auscultation bilaterally AUSCULTATION: clear to auscultation bilaterally Cardio: COMMON NORMALS: regular rate, regular rhythm, S1 normal heart sound present and S2 normal heart sound present RATE: regular rate RHYTHM: r egular rhythm HEART SOUNDS: S1 normal heart sound present and S2 normal heart sound present GI: COMMON NORMALS: Normal to inspection, nondistended, normoactive bowel sounds present and non-tender Extremity: NARRATIVE EXTREMITY EXAM: 1+ pitting edema Neuro: COMMON NORMALS: patient oriented x3 Psych: COMMON NORMALS: mental status grossly normal Urinary Catheter Management: Dumont: Cath Placed During This Visit: no Reason for Continuing Indwelling Catheter: Accurate Measurement of Urinary Output in Critically Ill Patients Data 06/30/23 05:05 06/30/23 05:05 A&P Assessment and plan (1) Acute encephalopathy: (2) Systolic CHF, acute: (3) Pulmonary edema: (4) Anasarca: (5) Acute respiratory failure with hypoxia and hypercapnia: (6) Morbid obesity: (7) Hyperkalemia: (8) COPD exacerbation: (9) Pneumonia due to COVID-19 virus: (10) Hypertensive emergency: Plan HTN EMERGENCY -currently on cardene drip, wean off -on clonidine, hydralazine, on norvasc, losartan, losartan, chlorthalidone, Imdur Acute encephalopathy, resolved ? Secondary to COVID-19 pneumonia, COPD, CHF, pneumonia ? Aspiration precautions, neurochecks, ? Acute hypoxic hypercarbic respiratory failure, ? Multifactorial, ? COPD exacerbation, ? Morbid obesity, ? Systolic CHF exacerbation, ? COVID-19 pneumonia ? Left lower lobe pneumonia ? Plan ? Continue BiPAP, recommended compliance with BiPAP during the night to help with hypercarbia, she is agreeable I feel that she will clinically benefit from BiPAP at home we will see if we can arrange that for her ? Low threshold for intubation, repeat ABG at 4 PM, ? Monitor PCO2, ? Monitor respiratory status, ? DuoNeb, -Budesonide ? Lasix 40 mg IV push, with metolazone ? Fluid restriction of 1000 cc, ? Cardiac echo, ? Continue Zosyn, ? Decadron 6 mg IV push every 24 hours, ? Remdesivir ? Sputum cultures, ? Blood cultures, COVID-19 pneumonia, as above, isolation History of COPD, on 5 L, noncompliant with BiPAP, ? Currently in COPD exacerbation, Morbid obesity, Systolic CHF ? Cardiac echo in 2019 ?CONCLUSIONS ?This is a limited echocardiogram with contrast performed to rule ?out LV thrombus and assess LV function.? LV systolic function is ?moderate to severely reduced with EF of 35 to 40%.? There is ?severe hypokinesis of apical wall.? Global mild to moderate ?hypokinesis is noted.? No LV thrombus is present. ?Grossly RV function appears at least moderately reduced. ?Compared to prior echocardiogram from 07/24/2020, LV systolic ?function has improved and is 35 to 40% now. ? Fluid restrictions at 1000 cc, ? Diuresis as above Left lower lobe pneumonia, as above NSTEMI, Type I versus type II, ? Cardiac catheterization in 2019 showed ?Conclusions ? 1. Nonobstructive coronary artery disease. ? 2. Significantly elevated LVEDP. ? 3. Likely Takotsubo cardiomyopathy versus myocarditis. Given patient's very high LVEDP ventriculography was not performed. Will need echocardiogram. ? 4. There is moderate coronary artery disease with one vessel disease. ? Serial EKGs, serial troponins, telemetry monitoring, Type 2 diabetes mellitus, low-dose sliding scale, Hyperkalemia potassium resolved Abdominal distention, with right upper quadrant pain, CT scan abdomen pelvis, within normal limits, monitor, History of torsades, in the past requiring CPR, check magnesium level, monitor troponins Lovenox for DVT prophylaxis, Protonix for GI prophylaxis, CODE STATUS, patient is a full code, spoke to patient's daughter in detail she does not want prolonged mechanical ventilation, is okay for intubation for about 24 hours, Wean off Cardene drip, titrate p.o. blood pressure medications diuresis, increased dose of Aldactone, continue remdesivir continue antibiotics, continue to diurese today, up out of bed, Attestations 2 Medical Necessity Statement*: Patient requires hospitalization for acute hypoxic respiratory failure persistent hypertension, pneumonia, COVID-19 pneumonia, fluid overload requiring diuresis Diagnoses Acute encephalopathy G93.40 Systolic CHF, acute I50.21 Pulmonary edema J81.1 Anasarca R60.1 Acute respiratory failure with hypoxia and hypercapnia J96.01; J96.02 Morbid obesity E66.01 Hyperkalemia E87.5 COPD exacerbation J44.1 Pneumonia due to COVID-19 virus U07.1; J12.82 Hypertensive emergency I16.1
[2023-06-30] MEDS: enoxaparin 40 mg/0.4 mL Syringe SUBCUT (15:31)
[2023-06-30 18:10] LABS: Glucose Point of Care 279 mg/dL (70-110)
[2023-06-30] MEDS: remdesivir 100 MG in sodium chloride 0.9% (100 ml) 100 ML IV (20:53)
--- NOTE | 2023-06-30 23:13 | PC.NURSE ---
Blood Pressure Patient's blood pressure remaining elevated despite PO medications. Dr. Fowler contacted and order received for 10 mg hydralazine IVP Q4H for systolic BP >180 and diastolic BP >100. See MAR for details.
[2023-06-30 23:24] LABS: Glucose Point of Care 239 mg/dL (70-110)
[2023-06-30] MEDS: hyDRALAzine 20 mg/mL INJ 1 mL 10 MG IVP (23:54)
[2023-07-01] VITALS (67 sets, daily range): BP systolic 133–262; BP diastolic 60–184; PULSE 50–127; RESP 12–27; TEMP 36.4–36.6; O2SAT 84–98; BMI 52.4
[2023-07-01] MEDS: pantoprazole 40 mg SDV IVP ×2 (02:33→14:48)
[2023-07-01] MEDS: piperacillin-tazobactam 3.375 GM in sodium chloride 0.9% (plus) 50 ML IV ×2 (02:33→09:30)
[2023-07-01] MEDS: acetaminophen 325 mg Tablet 650 MG PO (02:39)
--- NOTE | 2023-07-01 02:50 | PC.NURSE ---
Blood Pressure Patient's blood pressure remaining elevated, currently 201/102. Dr. Fowler contacted and order received to administer an early dose of the hydralazine 10 mg IVP now. See MAR for details.
[2023-07-01] MEDS: hyDRALAzine 20 mg/mL INJ 1 mL 10 MG IVP (02:59)
[2023-07-01 05:59] LABS: Basophils % 0.2 %; Lymphocytes # 0.4 10^3/uL (0.8-4.8); Lymphocytes % 6.8 %; Mean Corpuscular HGB Conc 30.2 g/dL (30-55); Mean Corpuscular Hemoglobin 27.8 pg (27-33); Mean Corpuscular Volume 91.9 fl (85-98); Mean Platelet Volume 9.2 fL (7.4-10.4); Monocytes # 0.6 10^3/uL (0.2-0.9); Monocytes % 11.9 %; Neutrophils # 4.27 10^3/uL (1.8-7.7); Neutrophils % 80.3 %; Nucleated Red Blood Cells % 0 %; Platelet Count 336 10^3/cmm (157-399); Red Blood Count 4.46 10^6/uL (3.85-5.65); Red Cell Distribution Width 14.4 % (12.1-15.1); White Blood Count 5.31 10^3/uL (3.29-11.43)
[2023-07-01 06:26] LABS: Alanine Aminotransferase 12 U/L (0-33); Albumin Level 3.2 g/dL (3.5-5.2); Alkaline Phosphatase 54 U/L (35-105); Anion Gap 12.8 (5-19); Aspartate Amino Transferase 12 U/L (0-32); Blood Urea Nitrogen 25 mg/dL (8-23); Calcium 9.2 mg/dL (8.5-10.5); Carbon Dioxide 39 mmol/L (22-29); Chloride 97 mmol/L (98-107); Globulin 2.7 g/dL (1.3-4.6); Glucose 184 mg/dL (65-115); Magnesium 1.8 mg/dL (1.7-2.3); Osmolality Calculated 309 mOsm/kg (285-295); Phosphorus 3.2 mg/dL (2.5-4.5); Potassium 3.8 mmol/L (3.5-5.1); Sodium 145 mmol/L (136-145); Total Bilirubin 0.7 mg/dL (0.15-1.2); Total Protein 5.9 g/dL (6.6-8.7)
--- NOTE | 2023-07-01 06:30 | PC.NURSE ---
Blood Pressure Patient's blood pressure remaining elevated. Dr. Fowler contacted and order received to restart rufus james per protocol.
[2023-07-01 06:50] LABS: NT Pro B Type Natriuretic Pept 1187 pg/mL (0-450)
[2023-07-01] MEDS: nicardipine 20 MG/200 ML PREMIX 50 MG IV (07:05)
[2023-07-01] MEDS: ipratropium-albuterol 3 mL Neb INHALATION ×3 (07:42→21:47)
[2023-07-01 08:29] LABS: Glucose Point of Care 158 mg/dL (70-110)
[2023-07-01] MEDS: isosorbide mononitrate ER 30 mg Tablet PO (08:36)
[2023-07-01] MEDS: losartan 50 mg Tablet 100 MG PO (08:37)
[2023-07-01] MEDS: amlodipine 10 mg Tablet PO (08:37)
[2023-07-01] MEDS: clopidogrel 75 mg Tablet PO (08:37)
[2023-07-01] MEDS: chlorthalidone 25 mg Tablet PO (08:37)
[2023-07-01] MEDS: spironolactone 25 mg Tablet 50 MG PO (08:37)
[2023-07-01] MEDS: cloNIDine 0.1 mg Tablet PO ×2 (08:37→18:09)
[2023-07-01] MEDS: atorvastatin 40 mg Tablet 20 MG PO (08:37)
[2023-07-01] MEDS: hyDRALAzine 25 mg Tablet PO (08:37)
[2023-07-01] MEDS: magnesium lactate 84 mg Tablet PO ×2 (08:37→18:05)
[2023-07-01] MEDS: dexamethasone 10 mg/mL INJ 6 MG IVP (08:38)
[2023-07-01] MEDS: insulin lispro 100 unit/1 mL SUBCUT ×3 (08:38→18:05)
--- NOTE | 2023-07-01 09:12 | PC.SOCIAL ---
IMM Update Pg.2 of IMM Updated and reviewed with patient. Copy provided to patient, initialed and dated copy in chart.
[2023-07-01] MEDS: carvedilol 3.125 mg Tablet PO ×2 (09:30→18:09)
[2023-07-01 12:19] LABS: Glucose Point of Care 203 mg/dL (70-110)
[2023-07-01] MEDS: hyDRALAzine 25 mg Tablet 50 MG PO ×2 (12:51→18:08)
[2023-07-01] MEDS: vancomycin 125 mg Capsule PO ×3 (12:51→20:18)
--- NOTE | 2023-07-01 14:23 | P.PN_ITS ---
Subjective 2 Subjective: Patient was seen this morning, denies any fevers, chills, no cough, remains hypertensive, was placed back on the Cardene drip Vitals/I&O/Wt Last Vital Signs Temp 97.8 F 07/01/23 04:00 Pulse 50 L 07/01/23 14:00 Resp 16 07/01/23 14:00 BP 161/76 07/01/23 14:00 Pulse Ox 98 07/01/23 14:00 O2 Del Method Nasal Cannula 07/01/23 07:40 O2 Flow Rate 2 07/01/23 07:40 FiO2 35 06/30/23 01:59 06/30/23 07/01/23 07/01/23 22:59 06:59 14:59 Intake Total 650 / 1039.999 280 / 1319.999 546.791 / 546.791 Output Total 650 / 650 1700 / 2350 Balance 0 / 389.999 -1420 / -1030.001 546.791 / 546.791 Weight last 48 hrs Weight 117.934 kg Physical Exam 2 Const: COMMON NORMALS: no acute distress and patient oriented x3 Resp: COMMON NORMALS: normal respiratory effort, No retractions, No use of accessory muscles and clear to auscultation bilaterally AUSCULTATION: clear to auscultation bilaterally Cardio: COMMON NORMALS: regular rate, regular rhythm, S1 normal heart sound present and S2 normal heart sound present RATE: regular rate RHYTHM: r egular rhythm HEART SOUNDS: S1 normal heart sound present and S2 normal heart sound present GI: COMMON NORMALS: Normal to inspection, nondistended, normoactive bowel sounds present and non-tender Extremity: COMMON NORMALS: no pedal edema Neuro: COMMON NORMALS: patient oriented x3 Psych: COMMON NORMALS: mental status grossly normal Urinary Catheter Management: Dumont: Cath Placed During This Visit: no Reason for Continuing Indwelling Catheter: Accurate Measurement of Urinary Output in Critically Ill Patients Data 07/01/23 05:06 07/01/23 05:06 Micro: Microbiology 06/26/23 13:54 Blood Culture - Final Blood NO GROWTH AFTER 5 DAYS 06/26/23 13:47 Blood Culture - Final Blood NO GROWTH AFTER 5 DAYS A&P Assessment and plan (1) Acute encephalopathy: (2) Systolic CHF, acute: (3) Pulmonary edema: (4) Anasarca: (5) Acute respiratory failure with hypoxia and hypercapnia: (6) Morbid obesity: (7) Hyperkalemia: (8) COPD exacerbation: (9) Pneumonia due to COVID-19 virus: (10) Hypertensive emergency: Plan HTN EMERGENCY -currently on cardene drip, wean off -on clonidine, hydralazine, on norvasc, losartan, chlorthalidone, Imdur, Coreg Acute encephalopathy, resolved ? Secondary to COVID-19 pneumonia, COPD, CHF, pneumonia ? Aspiration precautions, neurochecks, ? Acute hypoxic hypercarbic respiratory failure, ? Multifactorial, ? COPD exacerbation, ? Morbid obesity, ? Systolic CHF exacerbation, ? COVID-19 pneumonia ? Left lower lobe pneumonia ? Plan ? Continue BiPAP, recommended compliance with BiPAP during the night to help with hypercarbia, she is agreeable I feel that she will clinically benefit from BiPAP at home we will see if we can arrange that for her ? Monitor PCO2, ? Monitor respiratory status, ? DuoNeb, -Budesonide ? Lasix 40 mg IV push, patient is -520 L so far ? Fluid restriction of 1000 cc, ? Cardiac echo, ? Continue Zosyn, ?completed decadron ?completed Remdesivir ? Sputum cultures, ? Blood cultures, COVID-19 pneumonia, as above, isolation History of COPD, on 5 L, noncompliant with BiPAP, ? Currently in COPD exacerbation, Morbid obesity, Systolic CHF ? Cardiac echo in 2019 ?CONCLUSIONS ?This is a limited echocardiogram with contrast performed to rule ?out LV thrombus and assess LV function.? LV systolic function is ?moderate to severely reduced with EF of 35 to 40%.? There is ?severe hypokinesis of apical wall.? Global mild to moderate ?hypokinesis is noted.? No LV thrombus is present. ?Grossly RV function appears at least moderately reduced. ?Compared to prior echocardiogram from 07/24/2020, LV systolic ?function has improved and is 35 to 40% now. ? Fluid restrictions at 1000 cc, ? Diuresis as above Left lower lobe pneumonia, as above NSTEMI, Type I versus type II, ? Cardiac catheterization in 2019 showed ?Conclusions ? 1. Nonobstructive coronary artery disease. ? 2. Significantly elevated LVEDP. ? 3. Likely Takotsubo cardiomyopathy versus myocarditis. Given patient's very high LVEDP ventriculography was not performed. Will need echocardiogram. ? 4. There is moderate coronary artery disease with one vessel disease. ? Serial EKGs, serial troponins, telemetry monitoring, Type 2 diabetes mellitus, low-dose sliding scale, Hyperkalemia potassium resolved Abdominal distention, with right upper quadrant pain, CT scan abdomen pelvis, within normal limits, monitor, History of torsades, in the past requiring CPR, check magnesium level, monitor troponins Lovenox for DVT prophylaxis, Protonix for GI prophylaxis, CODE STATUS, patient is a full code, spoke to patient's daughter in detail she does not want prolonged mechanical ventilation, is okay for intubation for about 24 hours, completed C. difficile is pending, started on p.o. vancomycin for possible C. difficile, will moved to general medical floors, 1 dose of diuretic today wean off Cardizem drip Attestations 2 Medical Necessity Statement*: Patient requires hospitalization for hypertensive emergency weaning of Cardizem drip titration of p.o. blood pressure medications, diuresis, possible CHF, starting on p.o. vancomycin, Diagnoses Acute encephalopathy G93.40 Systolic CHF, acute I50.21 Pulmonary edema J81.1 Anasarca R60.1 Acute respiratory failure with hypoxia and hypercapnia J96.01; J96.02 Morbid obesity E66.01 Hyperkalemia E87.5 COPD exacerbation J44.1 Pneumonia due to COVID-19 virus U07.1; J12.82 Hypertensive emergency I16.1
[2023-07-01] MEDS: enoxaparin 40 mg/0.4 mL Syringe SUBCUT (14:48)
[2023-07-01 17:12] LABS: Glucose Point of Care 302 mg/dL (70-110)
[2023-07-01] MEDS: doxycycline 100 mg Tablet PO (18:09)
[2023-07-01 22:04] LABS: Glucose Point of Care 194 mg/dL (70-110)
[2023-07-02] VITALS (20 sets, daily range): BP systolic 150–174; BP diastolic 68–83; PULSE 44–62; RESP 12–98; TEMP 36.4–36.7; O2SAT 2–98
[2023-07-02] MEDS: ipratropium-albuterol 3 mL Neb INHALATION ×6 (00:16→23:23)
[2023-07-02] MEDS: pantoprazole 40 mg SDV IVP ×2 (02:13→14:14)
[2023-07-02] MEDS: hyDRALAzine 25 mg Tablet 50 MG PO ×4 (02:14→20:48)
[2023-07-02] MEDS: morphine 4 mg/mL SDV 1 mL 2 MG IVP (02:20)
[2023-07-02 06:07] LABS: Basophils % 0.2 %; Hematocrit 40.6 % (36-47); Lymphocytes # 0.5 10^3/uL (0.8-4.8); Lymphocytes % 7.4 %; Mean Corpuscular Hemoglobin 27.6 pg (27-33); Mean Corpuscular Volume 91.9 fl (85-98); Mean Platelet Volume 9.7 fL (7.4-10.4); Monocytes # 0.9 10^3/uL (0.2-0.9); Neutrophils # 5.05 10^3/uL (1.8-7.7); Neutrophils % 77.6 %; Nucleated Red Blood Cells % 0 %; Platelet Count 350 10^3/cmm (157-399); Red Blood Count 4.42 10^6/uL (3.85-5.65); Red Cell Distribution Width 14.3 % (12.1-15.1)
[2023-07-02 06:24] LABS: Alanine Aminotransferase 12 U/L (0-33); Albumin Level 3.4 g/dL (3.5-5.2); Alkaline Phosphatase 51 U/L (35-105); Anion Gap 12.1 (5-19); Aspartate Amino Transferase 10 U/L (0-32); Blood Urea Nitrogen 37 mg/dL (8-23); Calcium 9.4 mg/dL (8.5-10.5); Carbon Dioxide 38 mmol/L (22-29); Chloride 98 mmol/L (98-107); Globulin 2.9 g/dL (1.3-4.6); Glucose 174 mg/dL (65-115); Osmolality Calculated 311 mOsm/kg (285-295); Phosphorus 3.5 mg/dL (2.5-4.5); Potassium 4.1 mmol/L (3.5-5.1); Sodium 144 mmol/L (136-145); Total Bilirubin 0.8 mg/dL (0.15-1.2); Total Protein 6.3 g/dL (6.6-8.7)
[2023-07-02 06:41] LABS: NT Pro B Type Natriuretic Pept 800 pg/mL (0-450)
[2023-07-02 06:44] LABS: Glucose Point of Care 151 mg/dL (70-110)
[2023-07-02] MEDS: FUROsemide 10 mg/mL SDV 4mL 40 MG IVP (09:52)
[2023-07-02] MEDS: vancomycin 125 mg Capsule PO ×4 (10:01→20:48)
[2023-07-02] MEDS: spironolactone 25 mg Tablet 50 MG PO (10:01)
[2023-07-02] MEDS: atorvastatin 40 mg Tablet 20 MG PO (10:01)
[2023-07-02] MEDS: magnesium lactate 84 mg Tablet PO ×2 (10:02→17:52)
[2023-07-02] MEDS: cloNIDine 0.1 mg Tablet PO ×2 (10:03→17:51)
[2023-07-02] MEDS: carvedilol 3.125 mg Tablet PO ×2 (10:03→17:51)
[2023-07-02] MEDS: isosorbide mononitrate ER 30 mg Tablet PO (10:03)
[2023-07-02] MEDS: losartan 50 mg Tablet 100 MG PO (10:03)
[2023-07-02] MEDS: doxycycline 100 mg Tablet PO ×2 (10:03→17:51)
[2023-07-02] MEDS: clopidogrel 75 mg Tablet PO (10:04)
[2023-07-02] MEDS: chlorthalidone 25 mg Tablet PO (10:04)
[2023-07-02] MEDS: amlodipine 10 mg Tablet PO (10:04)
[2023-07-02 11:01] LABS: Glucose Point of Care 169 mg/dL (70-110)
[2023-07-02] MEDS: insulin lispro 100 unit/1 mL SUBCUT ×3 (11:07→17:52)
[2023-07-02] MEDS: acetaminophen 325 mg Tablet 650 MG PO (14:12)
[2023-07-02] MEDS: enoxaparin 40 mg/0.4 mL Syringe SUBCUT (14:14)
[2023-07-02 16:38] LABS: Glucose Point of Care 190 mg/dL (70-110)
[2023-07-02 16:44] LABS: Clostridium Difficile PCR NOT DETECTED (NOT DETECTED)
--- NOTE | 2023-07-02 17:11 | P.PN_ITS ---
Subjective 2 Subjective: Patient was seen this morning, she denies any fevers, chills, no cough, no nausea, no vomiting, no abdominal pain, she is currently sitting up in a chair, on BiPAP, Vitals/I&O/Wt Last Vital Signs Temp 98.0 F 07/02/23 16:05 Pulse 46 L 07/02/23 16:05 Resp 15 07/02/23 16:05 BP 150/68 07/02/23 16:05 Pulse Ox 97 07/02/23 16:05 O2 Del Method Nasal Cannula 07/02/23 16:05 O2 Flow Rate 2 07/02/23 15:54 FiO2 35 07/02/23 03:49 07/02/23 07/02/23 07/02/23 06:59 14:59 22:59 Intake Total 360 / 360 Output Total 200 / 1400 Balance -200 / -853.209 360 / 360 Weight last 48 hrs Weight 117.934 kg Physical Exam 2 Const: COMMON NORMALS: no acute distress and patient oriented x3 Resp: COMMON NORMALS: normal respiratory effort, No retractions, No use of accessory muscles and clear to auscultation bilaterally AUSCULTATION: clear to auscultation bilaterally Cardio: COMMON NORMALS: regular rate, regular rhythm, S1 normal heart sound present and S2 normal heart sound present RATE: regular rate RHYTHM: r egular rhythm HEART SOUNDS: S1 normal heart sound present and S2 normal heart sound present GI: COMMON NORMALS: Normal to inspection, nondistended, normoactive bowel sounds present and non-tender Extremity: NARRATIVE EXTREMITY EXAM: 1+ pitting edema Neuro: COMMON NORMALS: patient oriented x3 Psych: COMMON NORMALS: mental status grossly normal Urinary Catheter Management: Dumont: Cath Placed During This Visit: no Reason for Continuing Indwelling Catheter: Other Data 07/02/23 05:46 07/02/23 05:46 Micro: Microbiology 06/26/23 13:54 Blood Culture - Final Blood NO GROWTH AFTER 5 DAYS 06/26/23 13:47 Blood Culture - Final Blood NO GROWTH AFTER 5 DAYS A&P Assessment and plan (1) Acute encephalopathy: (2) Systolic CHF, acute: (3) Pulmonary edema: (4) Anasarca: (5) Acute respiratory failure with hypoxia and hypercapnia: (6) Morbid obesity: (7) Hyperkalemia: (8) COPD exacerbation: (9) Pneumonia due to COVID-19 virus: (10) Hypertensive emergency: Plan HTN EMERGENCY -Resolving -on clonidine, hydralazine, on norvasc, losartan, chlorthalidone, Imdur, Coreg Acute encephalopathy, resolved ? Secondary to COVID-19 pneumonia, COPD, CHF, pneumonia ? Aspiration precautions, neurochecks, ? Acute hypoxic hypercarbic respiratory failure, ? Multifactorial, ? COPD exacerbation, ? Morbid obesity, ? Systolic CHF exacerbation, ? COVID-19 pneumonia ? Left lower lobe pneumonia ? Plan ? Continue BiPAP, recommended compliance with BiPAP during the night to help with hypercarbia, she is agreeable I feel that she will clinically benefit from BiPAP at home we will see if we can arrange that for her ? Monitor PCO2, ? Monitor respiratory status, ? DuoNeb, -Budesonide ? Lasix 40 mg IV push, patient is -6.8 L so far ? Fluid restriction of 1000 cc, ? Cardiac echo, ? Continue Zosyn, ?completed decadron ?completed Remdesivir ? Sputum cultures, ? Blood cultures, COVID-19 pneumonia, as above, isolation History of COPD, on 5 L, compliant with BiPAP as inpatient ? Currently in COPD exacerbation, Morbid obesity, Systolic CHF ? Cardiac echo in 2019 ?CONCLUSIONS ?This is a limited echocardiogram with contrast performed to rule ?out LV thrombus and assess LV function.? LV systolic function is ?moderate to severely reduced with EF of 35 to 40%.? There is ?severe hypokinesis of apical wall.? Global mild to moderate ?hypokinesis is noted.? No LV thrombus is present. ?Grossly RV function appears at least moderately reduced. ?Compared to prior echocardiogram from 07/24/2020, LV systolic ?function has improved and is 35 to 40% now. ? Fluid restrictions at 1000 cc, ? Diuresis as above Left lower lobe pneumonia, as above NSTEMI, Type I versus type II, ? Cardiac catheterization in 2019 showed ?Conclusions ? 1. Nonobstructive coronary artery disease. ? 2. Significantly elevated LVEDP. ? 3. Likely Takotsubo cardiomyopathy versus myocarditis. Given patient's very high LVEDP ventriculography was not performed. Will need echocardiogram. ? 4. There is moderate coronary artery disease with one vessel disease. ? Serial EKGs, serial troponins, telemetry monitoring, Type 2 diabetes mellitus, low-dose sliding scale, Hyperkalemia potassium resolved Abdominal distention, with right upper quadrant pain, CT scan abdomen pelvis, within normal limits, monitor, History of torsades, in the past requiring CPR, check magnesium level, monitor troponins Lovenox for DVT prophylaxis, Protonix for GI prophylaxis, CODE STATUS, patient is a full code, spoke to patient's daughter in detail she does not want prolonged mechanical ventilation, is okay for intubation for about 24 hours, completed C. difficile is pending, started on p.o. vancomycin for possible C. difficile, Plan for today diuresis continue BiPAP therapy, PT OT, continue inpatient monitoring, Attestations 2 Medical Necessity Statement*: Patient requires hospitalization for fluid overload requiring diuresis, hypercarbic respiratory failure requiring bipap, Diagnoses Acute encephalopathy G93.40 Systolic CHF, acute I50.21 Pulmonary edema J81.1 Anasarca R60.1 Acute respiratory failure with hypoxia and hypercapnia J96.01; J96.02 Morbid obesity E66.01 Hyperkalemia E87.5 COPD exacerbation J44.1 Pneumonia due to COVID-19 virus U07.1; J12.82 Hypertensive emergency I16.1
[2023-07-02 20:56] LABS: Glucose Point of Care 165 mg/dL (70-110)
[2023-07-03] VITALS (14 sets, daily range): BP systolic 144–178; BP diastolic 64–71; PULSE 43–55; RESP 15–18; TEMP 36.4–36.7; O2SAT 95–99
[2023-07-03] MEDS: pantoprazole 40 mg SDV IVP ×2 (02:37→15:45)
[2023-07-03] MEDS: hyDRALAzine 25 mg Tablet 50 MG PO ×3 (02:37→17:57)
[2023-07-03] MEDS: ipratropium-albuterol 3 mL Neb INHALATION ×4 (03:44→20:36)
[2023-07-03 05:07] LABS: Basophils % 0.1 %; Eosinophils # 0.1 10^3/uL (0.0-0.8); Eosinophils % 1.3 %; Hematocrit 40.8 % (36-47); Lymphocytes # 1.4 10^3/uL (0.8-4.8); Lymphocytes % 14.4 %; Mean Corpuscular HGB Conc 29.4 g/dL (30-55); Mean Corpuscular Hemoglobin 27.5 pg (27-33); Mean Corpuscular Volume 93.6 fl (85-98); Mean Platelet Volume 9.4 fL (7.4-10.4); Monocytes # 1.1 10^3/uL (0.2-0.9); Monocytes % 11.3 %; Neutrophils # 6.95 10^3/uL (1.8-7.7); Neutrophils % 72.4 %; Nucleated Red Blood Cells % 0 %; Platelet Count 312 10^3/cmm (157-399); Red Blood Count 4.36 10^6/uL (3.85-5.65); Red Cell Distribution Width 14.4 % (12.1-15.1); White Blood Count 9.59 10^3/uL (3.29-11.43)
[2023-07-03 05:27] LABS: Alanine Aminotransferase 15 U/L (0-33); Albumin Level 3.3 g/dL (3.5-5.2); Alkaline Phosphatase 51 U/L (35-105); Anion Gap 9.8 (5-19); Aspartate Amino Transferase 19 U/L (0-32); Blood Urea Nitrogen 42 mg/dL (8-23); Calcium 9.5 mg/dL (8.5-10.5); Chloride 96 mmol/L (98-107); Globulin 2.8 g/dL (1.3-4.6); Glucose 129 mg/dL (65-115); Magnesium 1.9 mg/dL (1.7-2.3); Osmolality Calculated 308 mOsm/kg (285-295); Phosphorus 3.6 mg/dL (2.5-4.5); Potassium 3.8 mmol/L (3.5-5.1); Sodium 143 mmol/L (136-145); Total Bilirubin 0.8 mg/dL (0.15-1.2); Total Protein 6.1 g/dL (6.6-8.7)
[2023-07-03 05:50] LABS: Carbon Dioxide 41 mmol/L (22-29)
[2023-07-03 06:45] LABS: Glucose Point of Care 125 mg/dL (70-110)
[2023-07-03] MEDS: carvedilol 3.125 mg Tablet PO ×2 (09:43→17:57)
[2023-07-03] MEDS: losartan 50 mg Tablet 150 MG PO (09:44)
[2023-07-03] MEDS: potassium chloride ER 20 mEq Tablet PO (09:44)
[2023-07-03] MEDS: vancomycin 125 mg Capsule PO ×4 (09:44→22:05)
[2023-07-03] MEDS: magnesium lactate 84 mg Tablet PO ×2 (09:44→17:57)
[2023-07-03] MEDS: doxycycline 100 mg Tablet PO ×2 (09:44→17:57)
[2023-07-03] MEDS: cloNIDine 0.1 mg Tablet PO ×2 (09:44→15:46)
[2023-07-03] MEDS: spironolactone 25 mg Tablet 50 MG PO (09:44)
[2023-07-03] MEDS: amlodipine 10 mg Tablet PO (09:44)
[2023-07-03] MEDS: isosorbide mononitrate ER 30 mg Tablet PO (09:44)
[2023-07-03] MEDS: clopidogrel 75 mg Tablet PO (09:44)
[2023-07-03] MEDS: atorvastatin 40 mg Tablet 20 MG PO (09:45)
[2023-07-03] MEDS: chlorthalidone 25 mg Tablet PO (09:45)
--- NOTE | 2023-07-03 10:41 | PC.SOCIAL ---
IMM Update pg 2 of IMM updated and reviewed w/ patient. Copy provided and copy dated, initialed and placed in chart.
[2023-07-03 10:49] LABS: Glucose Point of Care 211 mg/dL (70-110)
--- NOTE | 2023-07-03 11:17 | PM.DCS ---
Discharge Providers Date of Admission: 06/26/23 13:25 Date of Discharge: July 03, 2023 Attending Provider at Admission: Jignesh Wu MD Attending Provider at Discharge: Jignesh Wu MD Primary Care Provider: Nazia Jha Diagnoses at Discharge Discharge Diagnosis (1) Acute encephalopathy: Status: Acute (2) Systolic CHF, acute: Status: Acute (3) Pulmonary edema: Status: Acute (4) Anasarca: Status: Acute (5) Acute respiratory failure with hypoxia and hypercapnia: Status: Acute (6) Morbid obesity: Status: Acute (7) Hyperkalemia: Status: Acute (8) COPD exacerbation: Status: Acute (9) Pneumonia due to COVID-19 virus: Status: Acute (10) Hypertensive emergency: Status: Acute Reason for Visit Reason for Visit: difficulty breathing Hospital Course Hospital Course Lauren Jose is a 78 year old female with a past medical history of COPD, noncompliant with BiPAP therapy, history of cardiomyopathy, history of diastolic CHF, history of systolic CHF, history of CAD, hypertension, hyperlipidemia, morbid obesity, who presents to [facility] for shortness of breath, encephalopathy, fevers, cough. Currently patient is alert to person, not to place, not to time, she does follow some commands but is quite encephalopathic she keeps pulling in her BiPAP mask and on the tubing, complaining of severe low back pain, I help the nurses reposition her in bed complaint because she continues to be in a lot of pain continues to be quite confused. Most of the history was obtained by patient's daughter at bedside, daughter tells me that patient has been feeling more short of breath recently, she has lower extreme edema she is noncompliant with her BiPAP for the last 2 years, her O2 sats yesterday were in the low 70s at times, this morning they were in the low 80s, no sick contacts, recent travel, no nausea, no vomiting, on examination, patient is in mild respiratory distress, tachypneic, tachycardic, intercostal retractions no nasal flaring, she is on 40% BiPAP, when she came into the ER she was found to have acute hypercarbic hypoxic respiratory failure, placed on BiPAP, currently her pH is 7.27, PCO2 86.2, compared to 91.5, O2 is 87.8, on 40%, chest x-ray shows left lower lobe opacity, BNP is over 2000, troponin is 17, potassium 6.1 she has not received anything for this, currently she looks fluid overloaded, abdomen is distended, has anasarca, 2+ pitting edema bilateral extremities, Patient who was admitted to [facility] for acute hypoxic respiratory failure, hypercarbic respiratory failure secondary to COPD exacerbation, noncompliance with BiPAP therapy, obesity hypoventilation syndrome, systolic CHF, COVID-19 pneumonia, left lower lobe pneumonia, with acute encephalopathy, hypertensive emergency, please look at my last progress notes for further detail For her COPD exacerbation, she received steroids as inpatient, was compliant with BiPAP therapy, overall she clinically improved her mentation improved, her respiratory status improved with BiPAP therapy. Initially patient was managed with AVAPS, as she was going to correction facility, correction facility did not accept AVAPS or home trilogy machine. As correction facility was the only reasonable option for her I had a detailed discussion with her as AVAPS would be ideal on her BiPAP therapy, however a correction facility is refusing to take her on AVAPS, will have to titrate her BiPAP settings off AVAPS. Certainly this is not ideal but unfortunate this is the only option I have as she needs to go to correction facility for deconditioning, and her need for rehab. After discussing the risk and benefits, she voiced understanding, all consents are, great to proceed. I had respiratory therapy titrate her BiPAP settings, she will be discharged on BiPAP, settings 22/03, follow-up with pulmonary as outpatient For patient's COVID 19 pneumonia received 5 days of remdesivir, Decadron, overall clinically improved For patient's obesity hypoventilation syndrome, BiPAP as above, For patient's systolic CHF exacerbation, she was diuresed over 10 L during her hospitalization overall clinically improved, she needs to restrict fluid between 1 to 1.5 L a day, discharged on Lasix 40 twice daily, with potassium replacement therapy, recheck kidney function creatinine and potassium on Thursday, History of COPD, she is 5 L at baseline, discharged on BiPAP, and oxygen therapy to correction facility, as above, For acute encephalopathy secondary to COVID-19 pneumonia, COPD, hypercarbia, CHF, pneumonia, overall clinical improved, back to baseline, For hypertensive emergency, she was managed in the intensive care unit, on Cardene drip, it was difficult to titrate her blood pressures, as she had fairly resistant hypertension. She is going to be discharged on clonidine, hydralazine, Norvasc, losartan, chlor Thalitone, Imdur, Coreg. I have discharged her with instructions for titration of her blood pressure medications as below, I am worried about polypharmacy, and the risks of over aggressively managing her blood pressure. Nonetheless, I have advised group home to watch her systolic blood pressures, typically they are between 1 60-1 70 and diastolic is between 80-90, within 48 hours, we can titrate her blood pressure medications potentially increase the clonidine, or the chlorthalidone, or the Imdur, or spironolactone. Again I would avoid over aggressive management of her blood pressure medications as she has had complaints of intermittent dizziness, her risk of falls, risk of polypharmacy. In addition she does have sinus bradycardia, which precludes the increasing of the dose of the Coreg During the hospitalization, there was concerns for C. difficile, although C. difficile test is pending on discharge, she did have episodes of diarrhea, improved with p.o. vancomycin, discharged on p.o. vancomycin for 7 days, Discharge to correction facility for PT OT Follow-up with pulmonary, follow-up with cardiology -Please monitor your blood sugars closely -Monitor your blood sugars 3 times daily as after meals -Please record your blood sugars, and a blood sugar log -For your NovoLog -Please inject blood sugar after meals based on sliding scale provided -Do not inject insulin if you do not eat as hypoglycemia kills -This is a NovoLog sliding scale -Insulin sliding ?fingerstick? Insulin ?141-180?0 units/sq 181-220?2 units/sq ?221-260?4 units/sq ?261-300 6 units/sq ?301-350?8 units/sq ?351-400 10 units/sq ?401-450?12 units/sq >450? 14units/sq -If your blood sugar is greater than 500 go to the emergency room -If your blood sugar is less than 60 or at anytime you feel lightheaded or dizzy or diaphoretic or have chest palpitations check your blood sugar, and eat a hard candy or drink orange juice and go immediately to the emergency room -Remember hypoglycemia kills, so if his blood sugar is less than 60 we have to increase it by taking in a sugary meal such as a hard candy or orange juice and go to the emergency room -If you have any questions please call us where here to help -Please be compliant with BiPAP therapy, please use scheduled nightly, ? Follow-up with pulmonary as outpatient, ? If you have persistent shortness of breath please go to emergency room, ? Please limit fluid intake between 1 to 1.5 L a day, take Lasix 40 mg twice daily with potassium replacement therapy, ? If you have lower extreme edema or shortness of breath go to emergency room, ? Please recheck kidney function on Thursday, ? For her hypertension, please slowly lower blood pressure, she is on multiple antihypertensive medications, please give them time, her systolic blood pressures are between 160-70 and diastolic is between 80s to 90s, I would say within 48 to 72 hours you can increase the dose of blood pressure medications, possibly Imdur, or clonidine, I have increased the losartan to 150 mg twice daily, increase the Lasix to twice daily, I am worried about polypharmacy with the multiple blood pressure medications, 1 thing hampering increasing her blood pressure medications is for bradycardia, would avoid increasing beta-yokasta ? Please monitor for lightheadedness and dizziness, with multiple blood pressure medications ? For COVID-19 continue to wear facemask, hand wash ? For possible C. difficile, please see use vancomycin ? For patient's Lasix, she received 2 doses of 40 p.o. twice daily of Lasix today, start tomorrow Physical Exam Const: COMMON NORMALS: no acute distress and patient oriented x3 Resp: COMMON NORMALS: normal respiratory effort, No retractions, No use of accessory muscles and clear to auscultation bilaterally AUSCULTATION: clear to auscultation bilaterally Cardio: COMMON NORMALS: regular rate, regular rhythm, S1 normal heart sound present and S2 normal heart sound present RATE: regular rate RHYTHM: regular rhythm HEART SOUNDS: S1 normal heart sound present and S2 normal heart sound present GI: COMMON NORMALS: Normal to inspection, nondistended, normoactive bowel sounds present and non-tender Extremity: COMMON NORMALS: no pedal edema Neuro: COMMON NORMALS: patient oriented x3 Psych: COMMON NORMALS: mental status grossly normal Urinary Catheter Management: Dumont: Cath Placed During This Visit: no Reason for Continuing Indwelling Catheter: Acute Urinary Retention or Obstruction Discharge Data Studies Completed and Pending Completed Studies During Hospitalization Category Date Time Status CT angio chest w abd pel w con Stat Cat Scan 06/26/23 14:12 Completed XR chest 1V portable [id number] Routine Exams 06/28/23 05:17 Completed XR chest 1V portable [id number] Stat Exams 06/26/23 11:40 [place] [id number] Routine Ultrasound 06/26/23 15:01 Completed CV. echo complete* [id number] Routine Ultrasound 06/26/23 15:01 Completed Pending at discharge Category Date Time Status Complete Blood Count w/Auto AM LABS Lab 07/04/23 04:00 Ordered Complete Blood Count w/Auto AM LABS Lab 07/05/23 04:00 Ordered Comprehensive Metabolic Panel AM LABS Lab 07/04/23 04:00 Ordered Comprehensive Metabolic Panel AM LABS Lab 07/05/23 04:00 Ordered Magnesium AM LABS Lab 07/04/23 04:00 Ordered Magnesium AM LABS Lab 07/05/23 04:00 Ordered Phosphorus AM LABS Lab 07/04/23 04:00 Ordered Phosphorus AM LABS Lab 07/05/23 04:00 Ordered Sputum Culture and Gram Stain Stat Lab 06/26/23 13:45 Uncollected Radiology Impressions Chest/Abdomen/Pelvis CT 06/26/23 14:12 IMPRESSION: 1. Small effusions with bibasilar atelectasis. 2. 8 mm masslike density in the left upper lobe. Three-month follow-up chest CT recommended. IMPRESSION: 1. No acute findings. 2. 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 Consider nuclear medicine bone scan if clinically warranted. Venous Duplex 06/26/23 15:01 IMPRESSION: No sonographic evidence of deep vein thrombosis. Chest X-Ray 06/28/23 05:17 IMPRESSION: Developing CHF. Laboratory Results WBC 9.59 10^3/uL (3.29-11.43) 07/03/23 04:53 Corrected WBC Cancelled 06/26/23 11:47 RBC 4.36 10^6/uL (3.85-5.65) 07/03/23 04:53 Hgb 12.00 g/dL (11.27-16.99) 07/03/23 04:53 Hct 40.8 % (36-47) 07/03/23 04:53 MCV 93.6 fl (85-98) 07/03/23 04:53 MCH 27.5 pg (27-33) 07/03/23 04:53 MCHC 29.4 g/dL (30-55) L 07/03/23 04:53 RDW 14.4 % (12.1-15.1) 07/03/23 04:53 Plt Count 312 10^3/cmm (157-399) 07/03/23 04:53 MPV 9.4 fL (7.4-10.4) 07/03/23 04:53 Gran % Cancelled 06/26/23 11:47 Neut % (Auto) 72.4 % 07/03/23 04:53 Lymph % (Auto) 14.4 % 07/03/23 04:53 Donley % (Auto) 11.3 % 07/03/23 04:53 Eos % (Auto) 1.3 % 07/03/23 04:53 Baso % (Auto) 0.1 % 07/03/23 04:53 Neut # (Auto) 6.95 10^3/uL (1.8-7.7) 07/03/23 04:53 Lymph # (Auto) 1.4 10^3/uL (0.8-4.8) 07/03/23 04:53 Donley # (Auto) 1.1 10^3/uL (0.2-0.9) H 07/03/23 04:53 Eos # (Auto) 0.1 10^3/uL (0.0-0.8) 07/03/23 04:53 Baso # (Auto) 0.0 10^3/uL (0.0-0.1) 07/03/23 04:53 Absolute Gran (auto) Cancelled 06/26/23 11:47 Nucleated RBC % (auto) 0 % 07/03/23 04:53 Nucleated RBCs # 0.0 /100WBC 07/03/23 04:53 D-Dimer 0.90 ug/mLFEU (0-0.59) H 06/26/23 13:04 Specimen Type Arterial 06/30/23 04:00 Sample Site Brachial, left 06/30/23 04:00 ABG pH 7.43 (7.35-7.45) 06/30/23 04:00 ABG pCO2 61.0 mmHg (35-45) H* 06/30/23 04:00 ABG pO2 77.0 mmHg (80.0-100.0) L 06/30/23 04:00 ABG PO2/FiO2 Ratio 0 06/30/23 04:00 ABG HCO3 40.0 mmol/L (22-26) H 06/30/23 04:00 ABG O2 Saturation 97.7 06/26/23 12:59 ABG Base Excess 13.2 mmol/L (-2.0-2.0) H 06/30/23 04:00 Cornel Test Pos 06/30/23 04:00 A-a O2 Gradient 12.7 mmHg (5-10) H 06/26/23 12:59 Hematocrit 36.2 % (37-47) L 06/30/23 04:00 Hgb O2 Saturation 95.3 % (95-100) 06/26/23 12:59 Carboxyhemoglobin 2.1 %THgb (0.4-20.1) 06/26/23 12:59 Methemoglobin 0.4 % (0.4-1.5) 06/26/23 12:59 Total Hemoglobin 12.0 g/dL (12-16) 06/26/23 12:59 Sodium 143.0 mmol/L (131-143) 06/26/23 12:59 Potassium 5.5 mmol/L (3.5-5.0) H 06/26/23 12:59 Glucose 137.0 mg/dL (70-115) H 06/26/23 12:59 Ionized Calcium 1.3 mmol/L (1.1-1.4) 06/26/23 12:59 O2 Delivery Device Bipap 06/30/23 04:00 O2 Liters/Min 6.0 % 06/26/23 11:53 FiO2 35.0 % 06/30/23 04:00 Tidal Volume 0.45 06/28/23 04:02 PEEP 10.0 cmH20 06/28/23 04:02 Marketing Planning Manager ID Teodora 06/30/23 04:00 Sodium 143 mmol/L (136-145) 07/03/23 04:53 Potassium 3.8 mmol/L (3.5-5.1) 07/03/23 04:53 Chloride 96 mmol/L (98-107) L 07/03/23 04:53 Carbon Dioxide 41 mmol/L (22-29) H 07/03/23 04:53 Anion Gap 9.8 (5-19) 07/03/23 04:53 BUN 42 mg/dL (8-23) H 07/03/23 04:53 Creatinine 0.7 mg/dL (0.5-0.9) 07/03/23 04:53 GFR Calculation Not Reportable 07/03/23 04:53 Glucose 129 mg/dL (65-115) H 07/03/23 04:53 POC Glucose 211 mg/dL (70-110) H 07/03/23 10:46 Estimat Average Glucose 148 06/26/23 13:04 Hemoglobin A1c 6.8 % (4.0-6.0) H 06/26/23 13:04 Calculated Osmolality 308 mOsm/kg (285-295) H 07/03/23 04:53 Lactic Acid 1.0 mmol/L (0.5-2.2) 06/26/23 13:47 Calcium 9.5 mg/dL (8.5-10.5) 07/03/23 04:53 Phosphorus 3.6 mg/dL (2.5-4.5) 07/03/23 04:53 Magnesium 1.9 mg/dL (1.7-2.3) 07/03/23 04:53 Ferritin 89 ng/mL (15-150) 06/26/23 11:47 Total Bilirubin 0.8 mg/dL (0.15-1.2) 07/03/23 04:53 AST 19 U/L (0-32) 07/03/23 04:53 ALT 15 U/L (0-33) 07/03/23 04:53 Alkaline Phosphatase 51 U/L (35-105) 07/03/23 04:53 Troponin T Baseline 17 ng/L (0-10) H 06/26/23 11:47 Troponin T 120 Minute 16.33 ng/L (0-10) H 06/26/23 13:54 Delta Troponin T -0.67 ABS# (0-10) L 06/26/23 13:54 Troponin T Hi Sens 6Hr 16.57 ng/L (0-10) H 06/26/23 17:59 Troponin T Hi Sens 6Hr Delta -0.43 ng/L (0-12) L 06/26/23 17:59 C-Reactive Protein 7.5 mg/L (0.0-4.9) H 06/30/23 05:05 NT-Pro-B Natriuret Pep 800 pg/mL (0-450) H 07/02/23 05:46 Total Protein 6.1 g/dL (6.6-8.7) L 07/03/23 04:53 Albumin 3.3 g/dL (3.5-5.2) L 07/03/23 04:53 Globulin 2.8 g/dL (1.3-4.6) 07/03/23 04:53 Triglycerides 123 mg/dL (0-150) 06/26/23 13:04 Cholesterol 175 mg/dL (0-200) 06/26/23 13:04 LDL Cholesterol, Calc 62 mg/dL (50-129) 06/26/23 13:04 HDL Cholesterol 88 mg/dL (60-100) 06/26/23 13:04 LDL/HDL Ratio 0.70 RATIO (0.00-3.22) 06/26/23 13:04 Cholesterol/HDL Ratio 1.99 mg/dL (0.0-4.40) 06/26/23 13:04 Procalcitonin 0.08 ng/mL (0-0.5) 06/30/23 05:05 TSH 1.72 uIU/mL (0.27-4.20) 06/26/23 11:47 Urine Color Yellow (Yellow) 06/26/23 12:22 Urine Appearance Cloudy (CLEAR) A 06/26/23 12:22 Urine pH 5 (5-7) 06/26/23 12:22 Ur Specific Mobile 1.025 (1.005-1.030) 06/26/23 12:22 Urine Protein 3+ (Negative) H 06/26/23 12:22 Urine Glucose (UA) Norm (Normal) 06/26/23 12:22 Urine Ketones Negative (Negative) 06/26/23 12:22 Urine Blood 2+ (Negative) H 06/26/23 12:22 Urine Nitrate Negative (Negative) 06/26/23 12:22 Urine Bilirubin Neg (Negative) 06/26/23 12:22 Urine Urobilinogen Norm mg/dL (Negative) 06/26/23 12:22 Ur Leukocyte Esterase Negative (Negative) 06/26/23 12:22 Urine RBC 5-10 /hpf (0-2) H 06/26/23 12:22 Urine WBC 0-4 /hpf (0-5) H 06/26/23 12:22 Ur Squamous Epith Cells 5-10 /hpf (0-5) H 06/26/23 12:22 Amorphous Sediment Not Reportable 06/26/23 12:22 Urine Bacteria 1+ /hpf (NONE) H 06/26/23 12:22 Hyaline Casts 0-4 /lpf H 06/26/23 12:22 Nasal Influ A H1 2009 PCR Not detected (NOT DETECT) 06/26/23 16:43 Vancomycin Trough 21.5 ug/mL (10-15) H 06/28/23 02:35 Adenovirus (PCR) Not detected (NOT DETECT) 06/26/23 16:43 C. pneumoniae DNA (PCR) Not detected (NOT DETECT) 06/26/23 16:43 C. difficile Tox (PCR) Not detected (NOT DETECTED) 06/30/23 21:20 Coronavirus 229E (PCR) Not detected (NOT DETECT) 06/26/23 16:43 Human Metapneumovir PCR Not detected (NOT DETECT) 06/26/23 16:43 Influenza A (H1) PCR Not detected (NOT DETECT) 06/26/23 16:43 Influenza A (H3) PCR Not detected (NOT DETECT) 06/26/23 16:43 Influenza Type A (PCR) Not detected (NOT DETECT) 06/26/23 16:43 Influenza Type B (PCR) Not detected (NOT DETECT) 06/26/23 16:43 M. pneumoniae (PCR) Not detected (NOT DETECT) 06/26/23 16:43 Parainfluenza 1 (PCR) Not detected (NOT DETECT) 06/26/23 16:43 Parainfluenza 2 (PCR) Not detected (NOT DETECT) 06/26/23 16:43 Parainfluenza 3 (PCR) Not detected (NOT DETECT) 06/26/23 16:43 Parainfluenza 4 (PCR) Not detected (NOT DETECT) 06/26/23 16:43 RSV Type A (PCR) Not detected (NOT DETECT) 06/26/23 16:43 RSV Type B (PCR) Not detected (NOT DETECT) 06/26/23 16:43 Entero/Rhino (PCR) Not detected (NOT DETECT) 06/26/23 16:43 SARS-CoV-2 (PCR) Detected (NOT DETECT) A 06/26/23 16:43 Vitals Last Vital Signs Temp 97.9 F 07/03/23 10:47 Pulse 50 L 07/03/23 10:47 Resp 18 07/03/23 08:00 BP 172/65 07/03/23 10:47 Pulse Ox 98 07/03/23 10:47 O2 Del Method Nasal Cannula 07/03/23 10:47 O2 Flow Rate 2 07/03/23 08:00 FiO2 35 07/02/23 23:28 Discharge Plan Discharge Patient Disposition: Xfer SNF Condition: Stable Prescriptions: New clonidine HCl 0.1 mg Tablet 0.1 mg PO BID 30 Days Qty: 60 0RF isosorbide mononitrate 30 mg Tablet Extended Release 24 Hr 30 mg PO DAILY 30 Days Qty: 30 0RF hydralazine 25 mg Tablet 50 mg PO Q6H 30 Days Qty: 240 0RF chlorthalidone 25 mg Tablet 25 mg PO DAILY 30 Days Qty: 30 0RF doxycycline monohydrate 100 mg Tablet 100 mg PO BID 5 Days Qty: 10 0RF carvedilol 3.125 mg Tablet 3.125 mg PO BID 30 Days Qty: 60 0RF amlodipine 10 mg Tablet 10 mg PO DAILY 30 Days Qty: 30 0RF Humalog U-100 Insulin 100 unit/mL Solution See Rx Instructions .ROUTE .COMPLEX Qty: 10 0RF Rx Instructions: Inject, subcut, 3 times daily, after meals, based on sliding scale provided losartan 50 mg Tablet 150 mg PO DAILY 30 Days Qty: 90 0RF spironolactone 25 mg Tablet 50 mg PO DAILY 30 Days Qty: 60 0RF vancomycin 125 mg Capsule 125 mg PO QID 7 Days Qty: 28 0RF Continued clopidogrel [Plavix] 75 mg tablet 75 mg PO DAILY@08 Hold Instructions: Resume on 10/29/20. atorvastatin [Lipitor] 20 mg tablet 20 mg PO DAILY@0800 albuterol sulfate [ProAir HFA] 90 mcg/actuation HFA aerosol inhaler 2 puff inhalation Q4H PRN (Reason: Shortness Of Breath) Anoro Ellipta 62.5-25 mcg/actuation Blister With Device 1 inh INHALATION BID@08,20 acetaminophen [Tylenol] 325 mg Tablet 325 - 650 mg PO Q6H PRN (Reason: Pain) hydroxyzine HCl 25 mg tablet 25 mg PO TID PRN (Reason: Anxiety) buspirone 10 mg tablet 10 mg PO BID@0800,2000 magnesium oxide 200 mg magnesium tablet 200 mg PO BID Qty: 60 0RF carvedilol 3.125 mg tablet 3.125 mg PO Q12H trazodone 150 mg tablet 150 mg PO BEDTIME PRN (Reason: anxiety) Klor-Con M20 20 mEq tablet,ER particles/crystals 20 meq PO BID famotidine 20 mg tablet 20 mg PO BID dicyclomine 20 mg tablet 20 mg PO TID PRN (Reason: Acid Reflux) Changed furosemide 40 mg Tablet 40 mg PO BID 30 Days Qty: 60 0RF Discontinued losartan 50 mg Tablet 150 mg PO DAILY@0800 Qty: 90 0RF Rx Instructions: WITH 100 MG TABLET losartan 100 mg tablet 100 mg PO DAILY@0800 Rx Instructions: TAKE WITH 50 MG TABLET Discharge Orders: Discharge Order (Routine); Ordered 07/03/23 Ordered By: Jignesh Wu Referrals: [facility] [Outside] Datar,Ronnie Paiz MD [Physician] - 7-10 days Nazia Jha PA [Primary Care Provider] - Discharge Diet: Cardiac Discharge Activity: Resume usual activity Patient Instructions: Heart Failure (DC), CHF Stoplight, Opioid Safety Activity Restrictions/Additional Instructions: -Please monitor your blood sugars closely -Monitor your blood sugars 3 times daily as after meals -Please record your blood sugars, and a blood sugar log -For your NovoLog -Please inject blood sugar after meals based on sliding scale provided -Do not inject insulin if you do not eat as hypoglycemia kills -This is a NovoLog sliding scale -Insulin sliding ?fingerstick? Insulin ?141-180?0 units/sq 181-220?2 units/sq ?221-260?4 units/sq ?261-300 6 units/sq ?301-350?8 units/sq ?351-400 10 units/sq ?401-450?12 units/sq >450? 14units/sq -If your blood sugar is greater than 500 go to the emergency room -If your blood sugar is less than 60 or at anytime you feel lightheaded or dizzy or diaphoretic or have chest palpitations check your blood sugar, and eat a hard candy or drink orange juice and go immediately to the emergency room -Remember hypoglycemia kills, so if his blood sugar is less than 60 we have to increase it by taking in a sugary meal such as a hard candy or orange juice and go to the emergency room -If you have any questions please call us where here to help -Please be compliant with BiPAP therapy, please use scheduled nightly, ? Follow-up with pulmonary as outpatient, ? If you have persistent shortness of breath please go to emergency room, ? Please limit fluid intake between 1 to 1.5 L a day, take Lasix 40 mg twice daily with potassium replacement therapy, ? If you have lower extreme edema or shortness of breath go to emergency room, ? Please recheck kidney function on Thursday, ? For her hypertension, please slowly lower blood pressure, she is on multiple antihypertensive medications, please give them time, her systolic blood pressures are between 160-70 and diastolic is between 80s to 90s, I would say within 48 to 72 hours you can increase the dose of blood pressure medications, possibly Imdur, or clonidine, I have increased the losartan to 150 mg twice daily, increase the Lasix to twice daily, I am worried about polypharmacy with the multiple blood pressure medications, 1 thing hampering increasing her blood pressure medications is for bradycardia, would avoid increasing beta-yokasta ? Please monitor for lightheadedness and dizziness, with multiple blood pressure medications ? For COVID-19 continue to wear facemask, hand wash ? For possible C. difficile, please see use vancomycin ? For patient's Lasix, she received 2 doses of 40 p.o. twice daily of Lasix today, start tomorrow Discharge Attestations Time Spent in Discharge Care*: greater than 30 min Status at Discharge: Cognitive status at discharge: cognitively intact, Behavioral status at discharge: cooperative, Quality Metrics Clinical Quality Measures [ No reported AMI, CVA or VTE this stay] Coding Level of Care Code 08731 Total time (in minutes) for Discharge: 50 Diagnoses Acute encephalopathy G93.40 Systolic CHF, acute I50.21 Pulmonary edema J81.1 Anasarca R60.1 Acute respiratory failure with hypoxia and hypercapnia J96.01; J96.02 Morbid obesity E66.01 Hyperkalemia E87.5 COPD exacerbation J44.1 Pneumonia due to COVID-19 virus U07.1; J12.82 Hypertensive emergency I16.1
[2023-07-03] MEDS: FUROsemide 40 mg Tablet PO (11:29)
[2023-07-03] MEDS: insulin lispro 100 unit/1 mL SUBCUT ×2 (13:14→17:57)
[2023-07-03] MEDS: enoxaparin 40 mg/0.4 mL Syringe SUBCUT (15:45)
[2023-07-03] MEDS: spironolactone 25 mg Tablet PO (15:46)
[2023-07-03 16:30] LABS: Glucose Point of Care 146 mg/dL (70-110)
[2023-07-03 21:35] LABS: Glucose Point of Care 185 mg/dL (70-110)
[2023-07-03] MEDS: acetaminophen 325 mg Tablet 650 MG PO (22:05)
[2023-07-04] VITALS (12 sets, daily range): BP systolic 127–174; BP diastolic 54–80; PULSE 45–67; RESP 16–23; TEMP 36.4–37; O2SAT 92–98; BMI 50.7
[2023-07-04] MEDS: ipratropium-albuterol 3 mL Neb INHALATION ×4 (00:04→16:18)
[2023-07-04] MEDS: hyDRALAzine 25 mg Tablet 50 MG PO ×4 (00:25→17:50)
[2023-07-04 05:36] LABS: Basophils % 0.1 %; Eosinophils # 0.2 10^3/uL (0.0-0.8); Hematocrit 39.9 % (36-47); Lymphocytes # 1.4 10^3/uL (0.8-4.8); Lymphocytes % 13.4 %; Mean Corpuscular HGB Conc 29.8 g/dL (30-55); Mean Corpuscular Hemoglobin 27.7 pg (27-33); Mean Platelet Volume 9.4 fL (7.4-10.4); Neutrophils # 7.59 10^3/uL (1.8-7.7); Nucleated Red Blood Cells % 0 %; Platelet Count 309 10^3/cmm (157-399); Red Blood Count 4.29 10^6/uL (3.85-5.65); Red Cell Distribution Width 14.5 % (12.1-15.1); White Blood Count 10.26 10^3/uL (3.29-11.43)
[2023-07-04 05:58] LABS: Alanine Aminotransferase 17 U/L (0-33); Albumin Level 3.3 g/dL (3.5-5.2); Alkaline Phosphatase 59 U/L (35-105); Aspartate Amino Transferase 18 U/L (0-32); Blood Urea Nitrogen 32 mg/dL (8-23); Calcium 9.2 mg/dL (8.5-10.5); Carbon Dioxide 35 mmol/L (22-29); Chloride 100 mmol/L (98-107); Globulin 2.6 g/dL (1.3-4.6); Glucose 156 mg/dL (65-115); Magnesium 1.8 mg/dL (1.7-2.3); Osmolality Calculated 310 mOsm/kg (285-295); Phosphorus 2.8 mg/dL (2.5-4.5); Sodium 145 mmol/L (136-145); Total Protein 5.9 g/dL (6.6-8.7)
[2023-07-04 07:27] LABS: Glucose Point of Care 133 mg/dL (70-110)
[2023-07-04] MEDS: atorvastatin 40 mg Tablet 20 MG PO (08:39)
[2023-07-04] MEDS: carvedilol 3.125 mg Tablet PO ×2 (08:39→17:50)
[2023-07-04] MEDS: doxycycline 100 mg Tablet PO ×2 (08:39→17:50)
[2023-07-04] MEDS: amlodipine 10 mg Tablet PO (08:39)
[2023-07-04] MEDS: spironolactone 25 mg Tablet 75 MG PO (08:39)
[2023-07-04] MEDS: cloNIDine 0.1 mg Tablet PO ×2 (08:40→17:50)
[2023-07-04] MEDS: losartan 50 mg Tablet 150 MG PO (08:40)
[2023-07-04] MEDS: isosorbide mononitrate ER 30 mg Tablet PO (08:40)
[2023-07-04] MEDS: clopidogrel 75 mg Tablet PO (08:40)
[2023-07-04] MEDS: potassium chloride ER 20 mEq Tablet PO (08:40)
[2023-07-04] MEDS: FUROsemide 40 mg Tablet PO (08:40)
[2023-07-04] MEDS: magnesium lactate 84 mg Tablet PO ×2 (09:50→17:50)
[2023-07-04] MEDS: vancomycin 125 mg Capsule PO ×3 (09:50→17:51)
[2023-07-04] MEDS: chlorthalidone 25 mg Tablet PO (09:50)
[2023-07-04 11:44] LABS: Glucose Point of Care 216 mg/dL (70-110)
[2023-07-04] MEDS: metOLazone 5 MG Tablet PO (12:06)
[2023-07-04] MEDS: insulin lispro 100 unit/1 mL SUBCUT ×2 (12:06→17:57)
--- NOTE | 2023-07-04 12:32 | P.PN_ITS ---
Subjective 2 Subjective: this is progress note from July 03, 2023 patient was seen this morning, denies fever, no chills, no cough, does report intermittent lightheadedness with ambulation, im worried about polypharmacy with her blood pressure medication, would recommend slowly watching bp over next few weeks, then slowly lowering blood pressure Vitals/I&O/Wt Last Vital Signs Temp 97.6 F 07/04/23 11:48 Pulse 45 L 07/04/23 11:48 Resp 16 07/04/23 11:48 BP 127/54 07/04/23 11:48 Pulse Ox 93 07/04/23 11:48 O2 Del Method Nasal Cannula 07/04/23 11:48 O2 Flow Rate 3 07/04/23 08:00 FiO2 35 07/04/23 00:07 07/03/23 07/04/23 07/04/23 22:59 06:59 14:59 Intake Total 240 / 240 Balance 240 / 240 Weight last 48 hrs Weight 113.937 kg Physical Exam 2 Const: COMMON NORMALS: no acute distress and patient oriented x3 Neck/C-Spine: COMMON NORMALS: no JVD Resp: COMMON NORMALS: normal respiratory effort, No retractions, No use of accessory muscles and clear to auscultation bilaterally AUSCULTATION: clear to auscultation bilaterally Cardio: COMMON NORMALS: no JVD, regular rhythm, S1 normal heart sound present and S2 normal heart sound present RATE: bradycardic RHYTHM: regular rhythm HEART SOUNDS: S1 normal heart sound present and S2 normal heart sound present GI: COMMON NORMALS: Normal to inspection, nondistended, normoactive bowel sounds present and non-tender Extremity: COMMON NORMALS: no pedal edema Neuro: COMMON NORMALS: patient oriented x3 Psych: COMMON NORMALS: mental status grossly normal Urinary Catheter Management: Dumont: Cath Placed During This Visit: yes, but has since been removed by the nurse Reason for Continuing Indwelling Catheter: Decision to DC Catheter Date Urinary Catheter Removed: 07/03/23 Time Urinary Catheter Discontinued: 13:00 Data 07/04/23 05:17 07/04/23 05:17 A&P Assessment and plan (1) Acute encephalopathy: (2) Systolic CHF, acute: (3) Pulmonary edema: (4) Anasarca: (5) Acute respiratory failure with hypoxia and hypercapnia: (6) Morbid obesity: (7) Hyperkalemia: (8) COPD exacerbation: (9) Pneumonia due to COVID-19 virus: (10) Hypertensive emergency: Plan HTN EMERGENCY -Resolving -on clonidine, hydralazine, on norvasc, losartan, chlorthalidone, Imdur, Coreg Acute encephalopathy, resolved ? Secondary to COVID-19 pneumonia, COPD, CHF, pneumonia ? Aspiration precautions, neurochecks, ? Acute hypoxic hypercarbic respiratory failure, ? Multifactorial, ? COPD exacerbation, ? Morbid obesity, ? Systolic CHF exacerbation, ? COVID-19 pneumonia ? Left lower lobe pneumonia ? Plan ? Continue BiPAP, recommended compliance with BiPAP during the night to help with hypercarbia, she is agreeable I feel that she will clinically benefit from BiPAP at home we will see if we can arrange that for her ? Monitor PCO2, ? Monitor respiratory status, ? DuoNeb, -Budesonide ? Lasix 40 mg IV push, patient is -6.8 L so far ? Fluid restriction of 1000 cc, ? Cardiac echo, ? Continue Zosyn, ?completed decadron ?completed Remdesivir ? Sputum cultures, ? Blood cultures, COVID-19 pneumonia, as above, isolation History of COPD, on 5 L, compliant with BiPAP as inpatient ? Currently in COPD exacerbation, Morbid obesity, Systolic CHF ? Cardiac echo in 2019 ?CONCLUSIONS ?This is a limited echocardiogram with contrast performed to rule ?out LV thrombus and assess LV function.? LV systolic function is ?moderate to severely reduced with EF of 35 to 40%.? There is ?severe hypokinesis of apical wall.? Global mild to moderate ?hypokinesis is noted.? No LV thrombus is present. ?Grossly RV function appears at least moderately reduced. ?Compared to prior echocardiogram from 07/24/2020, LV systolic ?function has improved and is 35 to 40% now. ? Fluid restrictions at 1000 cc, ? Diuresis as above Left lower lobe pneumonia, as above NSTEMI, Type I versus type II, ? Cardiac catheterization in 2019 showed ?Conclusions ? 1. Nonobstructive coronary artery disease. ? 2. Significantly elevated LVEDP. ? 3. Likely Takotsubo cardiomyopathy versus myocarditis. Given patient's very high LVEDP ventriculography was not performed. Will need echocardiogram. ? 4. There is moderate coronary artery disease with one vessel disease. ? Serial EKGs, serial troponins, telemetry monitoring, Type 2 diabetes mellitus, low-dose sliding scale, Hyperkalemia potassium resolved Abdominal distention, with right upper quadrant pain, CT scan abdomen pelvis, within normal limits, monitor, History of torsades, in the past requiring CPR, check magnesium level, monitor troponins Lovenox for DVT prophylaxis, Protonix for GI prophylaxis, CODE STATUS, patient is a full code, spoke to patient's daughter in detail she does not want prolonged mechanical ventilation, is okay for intubation for about 24 hours, completed C. difficile is pending, started on p.o. vancomycin for possible C. difficile, Plan for today blood pressure monitoring Attestations 2 Medical Necessity Statement*: patient requires hospitalization for blood pressure monitoring and diureses Diagnoses Acute encephalopathy G93.40 Systolic CHF, acute I50.21 Pulmonary edema J81.1 Anasarca R60.1 Acute respiratory failure with hypoxia and hypercapnia J96.01; J96.02 Morbid obesity E66.01 Hyperkalemia E87.5 COPD exacerbation J44.1 Pneumonia due to COVID-19 virus U07.1; J12.82 Hypertensive emergency I16.1
[2023-07-04] MEDS: enoxaparin 40 mg/0.4 mL Syringe SUBCUT (16:13)
[2023-07-04 16:40] LABS: Glucose Point of Care 145 mg/dL (70-110)
--- NOTE | 2023-07-04 20:17 | PC.NURSE ---
Patient picked up by [facility], for transport to [facility]. Left the floor at 2011 with all personal belongings, AAOX4 and signed her own paperwork. EMS personnel given discharge packet. Report called to [facility] staff.
== END 2023-07-04 20:12 | disposition skilled nursing facility (03) | DRG 177 ==
LOC: ER 12:26 → ICU 13:42 → MEDSURG 07-01 15:15
PROVIDERS: Internal Medicine; Admitting Provider Family Medicine; Emergency Provider Family Medicine; PCP Physician Assistant; Visit Provider Family Medicine
DX: U07.1 COVID-19 (principal); I21.4 Non-ST elevation (NSTEMI) myocardial infarction; J12.82 Pneumonia due to coronavirus disease 2019; J96.02 Acute respiratory failure with hypercapnia; J96.01 Acute respiratory failure with hypoxia; G93.40 Encephalopathy, unspecified; E66.2 Morbid (severe) obesity with alveolar hypoventilation; J44.1 Chronic obstructive pulmonary disease with (acute) exacerbation; I16.1 Hypertensive emergency; I42.9 Cardiomyopathy, unspecified; E87.5 Hyperkalemia; I1A.0 Resistant hypertension; I25.10 Atherosclerotic heart disease of native coronary artery without angina pectoris; E78.5 Hyperlipidemia, unspecified; E87.70 Fluid overload, unspecified; E11.9 Type 2 diabetes mellitus without complications; Z91.199 Patient's noncompliance with other medical treatment and regimen due to unspecified reason; Z79.02 Long term (current) use of antithrombotics/antiplatelets; Z68.43 Body mass index [BMI] 50.0-59.9, adult
CPT/HCPCS: 36415; 36416; 36600; 51702; 71045; 71275; 74177; 80051; 80053; 80061; 80202; 81001; 81015; 82330; 82728; 82803; 82805; 82962; 83036; 83605; 83735; 83880; 84100; 84145; 84443; 84484; 85025; 85378; 86140; 87040; 87070; 87077; 87186; 87205; 87486; 87493; 87581; 87633; 92610; 93005; 93010; 93306; 93970; 94640; 94660; 96365; 96372; 96375; 96376; 97110; 97116; 97161; 97167; 97530; 97535; 99291; C9113; J0248; J0360; J1100; J1650; J1815; J1940; J2270; J2543; J3370; J3490; P9046; Q9967

== ENCOUNTER → 2023-08-21 09:52 | Outpatient (BNVA) | payer MEDICARE, MEDICAID, SELFPAY | PROVIDERS: PCP Physician Assistant; Visit Provider Internal Medicine Pulmonary Disease | DX: Z09 Encounter for follow-up examination after completed treatment for conditions other than malignant neoplasm (principal); J44.9 Chronic obstructive pulmonary disease, unspecified; R91.1 Solitary pulmonary nodule; I50.42 Chronic combined systolic (congestive) and diastolic (congestive) heart failure; E66.2 Morbid (severe) obesity with alveolar hypoventilation; Z87.891 Personal history of nicotine dependence; Z99.81 Dependence on supplemental oxygen; Z68.42 Body mass index [BMI] 45.0-49.9, adult | CPT/HCPCS: 99204 ==

== ENCOUNTER → 2023-09-07 13:07 | Outpatient (BNVA) | payer MEDICARE, MEDICAID, SELFPAY | PROVIDERS: PCP Physician Assistant; Visit Provider Internal Medicine Cardiovascular Disease | DX: I11.0 Hypertensive heart disease with heart failure (principal); I50.42 Chronic combined systolic (congestive) and diastolic (congestive) heart failure; Z79.891 Long term (current) use of opiate analgesic; E11.9 Type 2 diabetes mellitus without complications; Z79.84 Long term (current) use of oral hypoglycemic drugs; E66.2 Morbid (severe) obesity with alveolar hypoventilation; Z68.42 Body mass index [BMI] 45.0-49.9, adult; J44.9 Chronic obstructive pulmonary disease, unspecified; I42.0 Dilated cardiomyopathy; Z87.891 Personal history of nicotine dependence | CPT/HCPCS: 99215 ==

== ENCOUNTER 2023-09-10 13:46 | Outpatient (CLI) | payer MEDICARE, MEDICAID, SELFPAY ==
[2023-09-10 14:04] VITALS: PULSE 62; RESP 18; O2SAT 93
[2023-09-10 14:08] VITALS: PULSE 60
[2023-09-10] MEDS: albuterol 2.5 mg/3 mL Neb INHALATION (14:08)
== END 2023-09-10 13:47 | disposition home or self-care (01) ==
LOC: RT 13:47
PROVIDERS: PCP Physician Assistant; Visit Provider Internal Medicine Pulmonary Disease
DX: J44.9 Chronic obstructive pulmonary disease, unspecified (principal); R94.2 Abnormal results of pulmonary function studies
CPT/HCPCS: 94060; 94729

== ENCOUNTER 2023-10-08 08:29 | Inpatient (IN) | payer MEDICARE, MEDICAID, SELFPAY ==
[2023-10-08] VITALS (71 sets, daily range): BP systolic 63–163; BP diastolic 34–114; PULSE 36–80; RESP 11–26; TEMP 36.6–36.9; O2SAT 88–99; BMI 52.4; BMI 50.7
--- NOTE | 2023-10-08 08:34 | ECG_ITS ---
[facility] Test Date: 2023-10-08 Pat Name: Lauren Jose Department: Room: Gender: Female Atm Manager: : 1945 Requested By: Manny Gabriel Order Number: [id number] Olga MD: Brenden Chowdhury M.D. Measurements Intervals [place] Rate: 34 P: 0 [place]: 0 QRS: 18 QRSD: 131 T: 55 QT: 562 QTc: 427 Interpretive Statements JUNCTION BRADYCARDIA INTRAVENTRICULAR CONDUCTION DELAY [130+ ms QRS DURATION] POSSIBLE ANTERIOR MYOCARDIAL INFARCTION , PROBABLY OLD [30 ms Q WAVE IN V3/V4, OR R < 0.2 mV IN V4] PROLONGED QT INTERVAL Compared to ECG 06/26/2023 15:59:51 Intraventricular conduction delay now present Sinus rhythm no longer present ST (T wave) deviation no longer present Poor R-wave progression no longer present Electronically Signed On 10-08-2023 14:43:55 SEWING PATTERN LAYOUT TECHNICIAN by Brenden Chowdhury M.D. [id number]
--- NOTE | 2023-10-08 08:37 | ECG_ITS ---
[facility] Test Date: 2023-10-08 Pat Name: Lauren Jose Department: Room: Gender: Female Shipping Clerk Crating: : 1945 Requested By: Manny Gabriel Order Number: [id number] Olga MD: Brenden Chowdhury M.D. Measurements Intervals [place] Rate: 34 P: 0 [place]: 0 QRS: 18 QRSD: 131 T: 55 QT: 562 QTc: 427 Interpretive Statements JUNCTIONAL BRADYCARDIA INTRAVENTRICULAR CONDUCTION DELAY [130+ ms QRS DURATION] POSSIBLE ANTERIOR MYOCARDIAL INFARCTION , PROBABLY OLD [30 ms Q WAVE IN V3/V4, OR R < 0.2 mV IN V4] PROLONGED QT INTERVAL CRITICAL TEST RESULT Compared to ECG 06/26/2023 15:59:51 Intraventricular conduction delay now present Sinus rhythm no longer present ST (T wave) deviation no longer present Poor R-wave progression no longer present Electronically Signed On 10-08-2023 14:44:12 COIL WRAPPER by Brenden Chowdhury M.D. [id number]
[2023-10-08] MEDS: sodium chloride 0.9% 500 ML 999 ML IV (08:40)
--- NOTE | 2023-10-08 08:40 | ED_ITS ---
HPI - Abdominal Pain 2 General: Chief Complaint: ER Hold Stated Complaint: bradycardia, abd pain Time Seen by Provider: 10/08/23 08:34 Source: patient and EMS Mode of arrival: EMS History of Present Illness: 78-year-old female presents to the emerg ency room via EMS. They were called for altered mental status patient was noted to be bradycardic with a heart rate in the 30s and 40s and hypotensive as well. She is denying chest pain at this time and states she hurts all over even to light touch in the arms legs and abdomen and she reports exquisite pain. She has been very nauseous has not vomited. Past medical history reviewed on the chart. She is on carvedilol. MD elicited complaint: abdominal pain Pain Consistency: constant Location: Diffuse Exacerbating factors: nothing Relieving factors: nothing Associated Symptoms: Reports GI cramping; Denies anorexia, belching, bloating, change in bowel habits, change in stool character, chills, coffee ground emesis, constipation, diarrhea, dyspepsia, dysuria, excessive flatus, fever(s), heartburn, hematochezia, hematuria, hematemesis, fecal incontinence, loose stools, melena, nausea, poor appetite, syncope and vomiting Review of Systems 2 Const: Denies: fever(s) or chills Card: Denies: chest pain or syncope Resp: Denies: dyspnea GI: Reports: GI cramping; Denies: abdominal pain, nausea, vomiting, hematemesis, coffee ground emesis, heartburn, diarrhea, constipation, bloating, belching, excessive flatus, fecal incontinence, change in bowel habits, change in stool character, hematochezia or melena : Denies: dysuria, urinary frequency, urinary urgency or hematuria Musc: Denies: neck pain or back pain Skin/Breast: Denies: rash PFSH ED 2 PFSH: Medical History Chronic CHF (congestive heart failure) Hypokalemia Hypomagnesemia Cardiomyopathy Torsades de pointes Diarrhea Takotsubo cardiomyopathy Gastritis Blood in stool Acute HFrEF (heart failure with reduced ejection fraction) HFrEF (heart failure with reduced ejection fraction) Stress-induced cardiomyopathy Diabetes Hypertension Non-ST elevation HI (NSTEMI) History of cerebrovascular accident COPD (chronic obstructive pulmonary disease) Hypertension Depression with anxiety History of CHF (congestive heart failure) History of GI bleed GERD (gastroesophageal reflux disease) Diabetes CVA (cerebral vascular accident) COPD (chronic obstructive pulmonary disease) Carpal tunnel syndrome on both sides Opioid contract exists Encounter for long-term use of opiate analgesic Chronic radicular low back pain Smokeless tobacco use Low back pain Surgical History History of esophagogastroduodenoscopy (EGD) (~11/2020) History of colonoscopy (~11/2020) H/O knee surgery History of knee replacement History of lumbar surgery Also history of spinal cord stimulator, currently not functioning History of shoulder surgery Family History Other CAD (coronary artery disease) Hypertension Stroke Denies family history of Anesthesia complication Bleeding disorder Social History Smoking and tobacco/nicotine status: former use of tobacco/nicotine Quit status (tobacco/nicotine): has quit using Year quit tobacco: 2012 Former quit date comment: 2ppd X 48 years Alcohol intake: never Substance/Drug Use: never Physical Exam 2 Const: GENERAL APPEARANCE: cooperative and comfortable O RIENTATION/CONSCIOUSNESS: Yes awake, Yes oriented to person, Yes oriented to place and Yes oriented to time HENMT: COMMON NORMALS: normocephalic, atraumatic and hearing grossly normal bilaterally HEAD & SCALP: normocephalic and atraumatic Resp: COMMON NORMALS: normal respiratory effort, No retractions, No use of accessory muscles and clear to auscultation bilaterally AUSCULTATION: clear to auscultation bilaterally Cardio: RATE: bradycardic GI: COMMON NORMALS: No hepatosplenomegaly present AUSCULTATION: Yes normoactive bowel sounds PALPATION: Yes Tenderness to palpation present (GI), No Guarding due to palpation present (GI) and Yes No hepatosplenomegaly present Extremity: COMMON NORMALS: normal to inspection, capillary refill normal, no clubbing, cyanosis or edema, no calf tenderness and no pedal edema Neuro: SENSORIUM/ORIENTATION: Yes oriented to person, Yes oriented to place and Yes oriented to time Skin: COMMON NORMALS: no rashes or lesions noted GENERAL SKIN EXAM: no rashes or lesions noted Course 2 Vital Signs: Vital signs: Vital Signs Temperature 97.8 F 10/08/23 08:35 Pulse Rate 69 10/08/23 16:30 Respiratory Rate 19 H 10/08/23 16:30 Blood Pressure 137/51 10/08/23 16:30 Pulse Oximetry 96 10/08/23 16:30 Oxygen Delivery Me thod High Flow Nasal C annula 10/08/23 16:30 Oxygen Flow Rate 5 10/08/23 16:30 MDM - Abdominal Pain Medical Decision Making Patient presents hypotensive and bradycardic and his third-degree block. He was found to be due to her hyperkalemia and medications. She was started on a dopamine drip which did improve both blood pressure and heart rate where she was stabilized. Additionally she was given fluids and her hyperkalemia was treated. Will admit discussed with hospitalist consult cardiology for her bradycardia. Hold carvedilol. Orders written. CT shows diverticulitis Dr. Rowe discharged with IV antibiotics. Differential Diagnosis Likely abdominal pain Lab Data 10/08/23 08:07 10/08/23 13:45 Labs/Radiology: Laboratory Results WBC 8.93 10^3/uL (3.29-11.43) 10/08/23 08:07 RBC 3.49 10^6/uL (3.85-5.65) L 10/08/23 08:07 Hgb 10.50 g/dL (11.27-16.99) L 10/08/23 08:07 Hct 34.2 % (36-47) L 10/08/23 08:07 MCV 98.0 fl (85-98) 10/08/23 08:07 MCH 30.1 pg (27-33) 10/08/23 08:07 MCHC 30.7 g/dL (30-55) 10/08/23 08:07 RDW 14.9 % (12.1-15.1) 10/08/23 08:07 Plt Count 307 10^3/cmm (157-399) 10/08/23 08:07 MPV 10.3 fL (7.4-10.4) 10/08/23 08:07 Neut % (Auto) 68.9 % 10/08/23 08:07 Lymph % (Auto) 20.7 % 10/08/23 08:07 [place] % (Auto) 7.5 % 10/08/23 08:07 Eos % (Auto) 1.0 % 10/08/23 08:07 Baso % (Auto) 0.7 % 10/08/23 08:07 Neut # (Auto) 6.15 10^3/uL (1.8-7.7) 10/08/23 08:07 Lymph # (Auto) 1.9 10^3/uL (0.8-4.8) 10/08/23 08:07 [place] # (Auto) 0.7 10^3/uL (0.2-0.9) 10/08/23 08:07 Eos # (Auto) 0.1 10^3/uL (0.0-0.8) 10/08/23 08:07 Baso # (Auto) 0.1 10^3/uL (0.0-0.1) 10/08/23 08:07 Nucleated RBC % (auto) 0 % 10/08/23 08:07 Nucleated RBCs # 0.0 /100WBC 10/08/23 08:07 Sodium 134 mmol/L (136-145) L 10/08/23 08:07 Potassium 6.4 mmol/L (3.5-5.1) H 10/08/23 08:07 Chloride 97 mmol/L (98-107) L 10/08/23 08:07 Carbon Dioxide 24 mmol/L (22-29) 10/08/23 08:07 Anion Gap 19.4 (5-19) H 10/08/23 08:07 BUN 72 mg/dL (8-23) H 10/08/23 08:07 Creatinine 3.5 mg/dL (0.5-0.9) H 10/08/23 08:07 GFR Calculation Not Reportable 10/08/23 08:07 Glucose 204 mg/dL (65-115) H 10/08/23 08:07 Calculated Osmolality 305 mOsm/kg (285-295) H 10/08/23 08:07 Lactic Acid 2.0 mmol/L (0.5-2.2) 10/08/23 08:07 Calcium 9.2 mg/dL (8.5-10.5) 10/08/23 08:07 Magnesium 2.4 mg/dL (1.7-2.3) H 10/08/23 08:07 Total Bilirubin 0.6 mg/dL (0.15-1.2) 10/08/23 08:07 AST 7 U/L (0-32) 10/08/23 08:07 ALT 10 U/L (0-33) 10/08/23 08:07 Alkaline Phosphatase 62 U/L (35-105) 10/08/23 08:07 Ammonia 22 umol/L (11-51) 10/08/23 09:56 Troponin T Baseline 46 ng/L (0-10) H 10/08/23 08:07 Troponin T 120 Minute 44.19 ng/L (0-10) H 10/08/23 09:56 Delta Troponin T -1.81 ABS# (0-10) L 10/08/23 09:56 Total Protein 6.5 g/dL (6.6-8.7) L 10/08/23 08:07 Albumin 3.7 g/dL (3.5-5.2) 10/08/23 08:07 Globulin 2.8 g/dL (1.3-4.6) 10/08/23 08:07 Lipase 27 U/L (13-60) 10/08/23 08:07 TSH 4.82 uIU/mL (0.27-4.20) H 10/08/23 08:07 Urine Color Yellow (Yellow) 10/08/23 09:50 Urine Appearance Clear (CLEAR) 10/08/23 09:50 Urine pH 5 (5-7) 10/08/23 09:50 Ur Specific [place] 1.020 (1.005-1.030) 10/08/23 09:50 Urine Protein Neg (Negative) 10/08/23 09:50 Urine Glucose (UA) Norm (Normal) 10/08/23 09:50 Urine Ketones Negative (Negative) 10/08/23 09:50 Urine Blood Neg (Negative) 10/08/23 09:50 Urine Nitrate Negative (Negative) 10/08/23 09:50 Urine Bilirubin Neg (Negative) 10/08/23 09:50 Urine Urobilinogen Norm mg/dL (Negative) 10/08/23 09:50 Ur Leukocyte Esterase Negative (Negative) 10/08/23 09:50 All radiology interpretation(s) finalized by discharge Critical Care Time 2 Critical Care Time: Critical Care Time: Yes Total Critical Care Time: 45 Attestation: The high probability of a clinically significant, sudden or life threatening deterioration of the patient's cardiovascular renal system(s) required my full and direct attention, intervention and personal management. The critical care time is as shown. This time is in addition to time spent performing any reported procedures but includes the following: [x] Data and vital sign review and interpretation [x] Patient assessment, examination and intervention [x] Documentation [x] Medication orders and management Discharge Plan Discharge Patient Disposition: Admitted As Inpatient Admit Provider: John Rowe Clinical Impression: Heart block AV third degree, Acute respiratory failure with hypoxia and hypercapnia, Hyperkalemia, Acute diverticulitis, Anemia Condition: Stable Coding Level of Care Code ED Service Dismantler for Lea Dinero
--- NOTE | 2023-10-08 08:41 | CT_ITS ---
WS: [id number] CT ABDOMEN PELVIS TECHNIQUE: Noncontrast CT of the abdomen and pelvis with coronal and sagittal reformatted images. CLINICAL INFORMATION: Abdominal pain COMPARISON: CT 06/26/2023 DLP: 1087.[address] scans at [facility] use at least one of these dose optimization techniques: automated e xposure control; mA and/or kV adjustment per patient size (includes targeted exams where dose is matc hed to clinical indication); or iterative reconstruction. FINDINGS: Slight LEFT basilar atelectasis. Normal noncontrast liver. Prior cholecystectomy. Tiny esop hageal hiatal hernia. Fatty atrophy of the pancreas. Normal noncontrast spleen. Adrenal glands are no rmal. No hydronephrosis in either kidney. Dumont catheter in place. Stable LEFT renal lesions unchange d since 06/26/2023. Normal caliber abdominal aorta. Aortic calcification. Few sigmoid diverticuli. Small amount of thicke cheikh and induration involving the sigmoid colon in the LEFT lower quadrant compatible with simple acu te diverticulitis. No drainable abscess or fluid collection. No other acute findings or change from p revious. Osteopenia. Partially visualized thoracic stimulator. Stable sclerotic lesions at T10 and T11. Hypert rophic changes lower thoracic spine. IMPRESSION: Simple acute sigmoid diverticulitis. Recommend follow-up to resolution. No drainable abscess or fluid collection.
[2023-10-08 08:50] LABS: Basophils # 0.1 10^3/uL (0.0-0.1); Basophils % 0.7 %; Eosinophils # 0.1 10^3/uL (0.0-0.8); Hematocrit 34.2 % (36-47); Lymphocytes # 1.9 10^3/uL (0.8-4.8); Lymphocytes % 20.7 %; Mean Corpuscular HGB Conc 30.7 g/dL (30-55); Mean Corpuscular Hemoglobin 30.1 pg (27-33); Mean Platelet Volume 10.3 fL (7.4-10.4); Monocytes # 0.7 10^3/uL (0.2-0.9); Monocytes % 7.5 %; Neutrophils # 6.15 10^3/uL (1.8-7.7); Neutrophils % 68.9 %; Nucleated Red Blood Cells % 0 %; Platelet Count 307 10^3/cmm (157-399); Red Blood Count 3.49 10^6/uL (3.85-5.65); Red Cell Distribution Width 14.9 % (12.1-15.1); White Blood Count 8.93 10^3/uL (3.29-11.43)
--- NOTE | 2023-10-08 08:50 | PC.PHAR ---
Addendum entered by Ashlye Lowe 10/08/23 09:31: SPOKE WITH CESILIA (NURSE AT FACILITY) ABOUT MEDICATIONS NOT ON LIST PROVIDED. SHE VERIFIED THE FOLLOWING MEDS: AMLODIPINE 10 MG DAILY, CARVEDILOL 3.125 TWICE DAILY,FAMOTIDINE 20 MG TWICE DAILY, AND HYDROXYZINE 25 MG 3 TIMES DAILY. SHE IS ALSO CONCERNED ABOUT PT TAKING SEVERAL CARDIAC MEDICATIONS. Original Note: PT IS NOW AT [facility] 10/08/23
[2023-10-08] MEDS: DOPamine drip 400 MG/250 ML PREMIX 22.1099999999999994 MG IV (08:56)
--- NOTE | 2023-10-08 08:59 | PC.NURSE ---
pt hypotensive, 74/34. Dr. Spencer notified. pt placed in trendelenburg.
[2023-10-08 09:03] LABS: Troponin(5th) Baseline 46 ng/L (0-10)
[2023-10-08 09:12] LABS: Alanine Aminotransferase 10 U/L (0-33); Albumin Level 3.7 g/dL (3.5-5.2); Alkaline Phosphatase 62 U/L (35-105); Anion Gap 19.4 (5-19); Aspartate Amino Transferase 7 U/L (0-32); Blood Urea Nitrogen 72 mg/dL (8-23); Calcium 9.2 mg/dL (8.5-10.5); Carbon Dioxide 24 mmol/L (22-29); Chloride 97 mmol/L (98-107); Creatinine Clr Calc Pharmacy 25.4588; Globulin 2.8 g/dL (1.3-4.6); Glucose 204 mg/dL (65-115); Lipase 27 U/L (13-60); Magnesium 2.4 mg/dL (1.7-2.3); Osmolality Calculated 305 mOsm/kg (285-295); Potassium 6.4 mmol/L (3.5-5.1); Sodium 134 mmol/L (136-145); Thyroid Stimulating Hormone 4.82 uIU/mL (0.27-4.20); Total Bilirubin 0.6 mg/dL (0.15-1.2); Total Protein 6.5 g/dL (6.6-8.7)
--- NOTE | 2023-10-08 10:05 | XR_ITS ---
WS: [id number] Portable AP supine chest, 10/08/2023 Clinical Data: dyspnea/cough Comparison: Portable chest, 06/28/2023 Findings: The heart is enlarged. The pulmonary vascularity is minimally prominent. No nodules, masses or effusions are seen. No pneumonia or pneumothorax is seen. The aortic arch and descending thoracic aorta show minimal calcification. There are monitor leads and resuscitation devices overlying the ch est. There are epidural stimulator wires in the lower thoracic space. Impression: 1. Cardiomegaly and pulmonary vascular congestion. 2. Atherosclerosis.
[2023-10-08] MEDS: insulin regular-human 100 units/1 mL 10 UNIT IVP (10:21)
[2023-10-08 10:22] LABS: Ammonia 22 umol/L (11-51)
[2023-10-08] MEDS: calcium chloride 10% Syr 10 mL 2 GM IVP (10:22)
[2023-10-08 10:23] LABS: Add Urine Microscopic? NO
[2023-10-08 10:24] LABS: Bilirubin Urine Neg (Negative); Blood Urine Neg (Negative); Charge for UA Resulting for Rev; Glucose Urine UA Norm (Normal); Ketones Urine Negative (Negative); Leukocyte Esterase Urine Negative (Negative); Nitrate Urine Negative (Negative); Protein Urine Neg (Negative); Urine Appearance Clear (CLEAR); Urine Color Yellow (Yellow); Urobilinogen Urine Norm (Negative); pH Urine 5 (5-7)
[2023-10-08 10:37] LABS: Troponin 5 2HR 44.19 ng/L (0-10)
[2023-10-08 10:38] LABS: Troponin 5 2HR Delta -1.81 ABS# (0-10)
--- NOTE | 2023-10-08 10:42 | ECG_ITS ---
[facility] Test Date: 2023-10-08 Pat Name: Lauren Jose Department: Room: Gender: Female Case Briefer: : 1945 Requested By: Manny Gabriel Order Number: [id number] Olga MD: Brenden Chowdhury M.D. Measurements Intervals [place] Rate: 61 P: 264 [place]: 175 QRS: 19 QRSD: 120 T: 78 QT: 400 QTc: 405 Interpretive Statements ECTOPIC ATRIAL RHYTHM MODERATE INTRAVENTRICULAR CONDUCTION DELAY [105+ ms QRS DURATION, 80+ ms Q/S IN V1/V2, NO Q AND 60+ ms R IN I/aVL/V5/V6] NONSPECIFIC T-WAVE ABNORMALITY Compared to ECG 10/08/2023 08:34:39 Ectopic atrial rhythm now present T-wave abnormality now present Myocardial infarct finding no longer present Prolonged QT interval no longer present Electronically Signed On 10-08-2023 14:50:08 ENROLLMENT COUNSELOR by Brenden Chowdhury M.D. [id number]
[2023-10-08 10:46] LABS: ABG PCO2 56.4 mmHg (35-45); ABG PH Result 7.21 (7.35-7.45); Arterial Blood Gas Hematocrit 35.7 % (37-47); Base Excess ABG -5.6 mmol/L (-2.0-2.0); Blood Gas Allen Test Pos; Blood Gas Sample Type Arterial; Carboxyhemoglobin 0.8 %THgb (0.4-20.1); HCO3 ABG 22.6 mmol/L (22-26); HGB O2 Sat 94.8 % (95-100); Ionized Calcium Level - ABG 1.7 mmol/L (1.1-1.4); Methemoglobin 0.5 % (0.4-1.5); Oxygen Saturation ABG 96.1; PO2 ABG 83.5 mmHg (80.0-100.0); Potassium Level - ABG 5.8 mmol/L (3.5-5.0); Total Hemoglobin 11.7 g/dL (12-16)
[2023-10-08 10:48] LABS: Blood Gas Operator Identificat GLC; Blood Gas Sample Site RB; Oxygen Device NC
[2023-10-08] MEDS: albuterol 2.5 mg/3 mL Neb INHALATION (11:08)
--- NOTE | 2023-10-08 11:08 | P.HP_ITS ---
Providers/Chief Complaint 2 Admitting Physician: John Rowe MD Primary Care Provider: Nazia Jha Chief Complaint: bradycardia, abd pain History of Present Illness Lauren Jose is a 78 year old female resident of [facility] who presents to the hospital with decreased responsiveness. She was apparently at breakfast today, and appeared sleepy and lethargic. Blood pressure was 90 systolic, heart rate 40, and her O2 sat was 84% on 3 L. She had not complained of any abdominal pain until that morning. No fever had been noted recently. She has some chronic respiratory failure, and uses BiPAP while sleeping. She typically has chronic loose stools. No chest discomfort, or shortness of breath had been reported. Unable to get adequate history from the patient, other than short answers of no chest pain or shortness of breath currently. In the emergency department she was found to have acute kidney injury, hyperkalemia, complete heart block. She was placed on dopamine, given insulin and glucose, an order for Kayexalate she has not yet got, and I ordered some albuterol. With this she is now in sinus rhythm with a heart rate of approximately 60 and an adequate blood pressure of 120 systolic. Zosyn was initiated for her diverticulitis. She received a fluid bolus in the ER and continued IV fluids have been initiated. Review of Systems 2 General: Reports: 10 or more systems reviewed and unremarkable except in HPI and below Card: Denies: chest pain Resp: Denies: dyspnea GI: Reports: abdominal pain, nausea and vomiting; Denies: hematochezia or melena Medications/Allergies Home Medications Medication Instructions Recorded Confirmed Last Taken Type atorvastatin 20 mg tablet (Lipitor) 20 mg PO BEDTIME 09/30/19 10/08/23 12/13/20 History acetaminophen 325 mg tablet 325 mg PO TID Pain 08/22/20 10/08/23 12/13/20 History (Tylenol) hydroxyzine HCl 25 mg tablet 25 mg PO TID PRN Anxiety 11/19/20 10/08/23 Unknown History buspirone 10 mg tablet 10 mg PO BID 12/13/20 10/08/23 12/13/20 History famotidine 20 mg tablet 20 mg PO BID 06/26/23 10/08/23 Unknown History carvedilol 3.125 mg tablet 1.5625 mg (1/2 x 3.125 mg) PO Q12H 07/04/23 10/08/23 Unknown Rx 30 days #30 tabs furosemide 40 mg tablet 40 mg PO DAILY 30 days #30 tabs 07/04/23 10/08/23 12/13/20 Rx albuterol sulfate 90 mcg/actuation 2 puff inhalation Q4H PRN 08/21/23 10/08/23 Unknown History aerosol inhaler Shortness Of Breath amlodipine 10 mg tablet 10 mg PO DAILY 08/21/23 10/08/23 Unknown History fluticasone fur. 100 mcg-umeclid 1 inh inhalation DAILY #60 ea 08/21/23 10/08/23 Unknown Rx 62.5 mcg-vilant 25 mcg inhalat.powder (Trelegy Ellipta) hydralazine 50 mg tablet 50 mg PO QID 08/21/23 10/08/23 Unknown History losartan 100 mg tablet 100 mg PO DAILY 08/21/23 10/08/23 Unknown History clonidine 0.3 mg/24 hr weekly 1 patch transdermal Q7D 09/07/23 10/08/23 Unknown History transdermal patch ([id number]-1) bisacodyl 10 mg rectal suppository 10 mg OH DAILY PRN Constipation 10/08/23 10/08/23 Unknown History camphor-menthol 0.2 %-3.5 % 1 applic topical TID PRN Pain 10/08/23 10/08/23 Unknown History topical gel insulin glargine-yfgn 100 unit/mL 20 unit SUBCUT BEDTIME 10/08/23 10/08/23 Unknown History (3 mL) subcutaneous pen isosorbide mononitrate 30 mg 30 mg PO DAILY 10/08/23 10/08/23 Unknown History tablet,extended release 24 hr levothyroxine 50 mcg tablet 50 mcg PO QAM 10/08/23 10/08/23 Unknown History magnesium hydroxide 400 mg/5 mL 30 ml PO DAILY PRN Constipation 10/08/23 10/08/23 Unknown History oral suspension (Milk of Magnesia) magnesium oxide 200 mg PO BID 10/08/23 10/08/23 Unknown History sodium phosphates 19 gram-7 118 ml OH DAILY PRN Constipation 10/08/23 10/08/23 Unknown History gram/118 mL enema (Fleet Enema) spironolactone 50 mg tablet 50 mg PO DAILY 10/08/23 10/08/23 Unknown History tramadol 50 mg tablet 50 mg PO DAILY 10/08/23 10/08/23 Unknown History Allergies Allergy/AdvReac Type Severity Reaction Status Date / Time No Known Allergies Allergy Verified 09/07/23 13:17 PFSH Acute 2 PFSH: Medical History Chronic CHF (congestive heart failure) Hypokalemia Hypomagnesemia Cardiomyopathy Torsades de pointes Diarrhea Takotsubo cardiomyopathy Gastritis Blood in stool Acute HFrEF (heart failure with reduced ejection fraction) HFrEF (heart failure with reduced ejection fraction) Stress-induced cardiomyopathy Diabetes Hypertension Non-ST elevation [place] (NSTEMI) History of cerebrovascular accident COPD (chronic obstructive pulmonary disease) Hypertension Depression with anxiety History of CHF (congestive heart failure) History of GI bleed GERD (gastroesophageal reflux disease) Diabetes CVA (cerebral vascular accident) COPD (chronic obstructive pulmonary disease) Carpal tunnel syndrome on both sides Opioid contract exists Encounter for long-term use of opiate analgesic Chronic radicular low back pain Smokeless tobacco use Low back pain Surgical History History of esophagogastroduodenoscopy (EGD) (~11/2020) History of colonoscopy (~11/2020) H/O knee surgery History of knee replacement History of lumbar surgery Also history of spinal cord stimulator, currently not functioning History of shoulder surgery Family History Other CAD (coronary artery disease) Hypertension Stroke Denies family history of Anesthesia complication Bleeding disorder Social History Smoking and tobacco/nicotine status: former use of tobacco/nicotine Quit status (tobacco/nicotine): has quit using Year quit tobacco: 2012 Former quit date comment: 2ppd X 48 years Alcohol intake: never Substance/Drug Use: never Vitals/I&O/Wt Last Vital Signs Temp 97.8 F 10/08/23 08:35 Pulse 60 10/08/23 11:00 Resp 18 10/08/23 11:00 BP 121/43 10/08/23 11:00 Pulse Ox 93 10/08/23 11:00 O2 Del Method Nasal Cannula 10/08/23 09:40 O2 Flow Rate 4 10/08/23 09:40 10/07/23 10/08/23 10/08/23 22:59 06:59 14:59 Intake Total 508.107 / 508.107 Balance 508.107 / 508.107 Weight last 48 hrs Weight 117.934 kg Physical Exam 2 Narrative: General exam is a white female, who was actively vomiting when I saw her. She is now little bit more alert, and can answer few questions HEENT: Atraumatic normocephalic. Oropharynx clear. Neck is supple no lymphadenopathy thyromegaly. Obese Cardiovascular bradycardic, regular, no murmur Lungs diminished breath sounds bilaterally no wheezes or crackles Abdomen some global tenderness. Obese. Cannot determine organomegaly exam demonstrates Dumont with scant amount of yellow urine Extremities no sinus clubbing edema, cap refill brisk Skin no rash Neuro no obvious focal deficits Urinary Catheter Management: Dumont: Cath Placed During This Visit: yes Urinary Catheter Date of Insertion: 10/08/23 Urinary Catheter Time of Insertion: 09:30 Data 10/08/23 08:07 10/08/23 13:45 Other Labs: Initial EKG demonstrated heart rate of 35, likely complete heart block with normal axis. Certainly intraventricular conduction delay, no P waves, irregular rhythm. Possibly slow junctional rhythm with retrograde P wave ABG demonstrated pH 7.2, pCO2 56, pO2 of 83 on nasal cannula Magnesium 2.4 Lactic acid 2.0 Calcium 9.2, albumin 3.7 LFTs normal Troponin 46 with repeat of 42 TSH 4.82 Urinalysis negative Abdomen pelvis CT which I reviewed demonstrated acute diverticulitis, no evidence of free air Chest x-ray which I reviewed demonstrated pulmonary edema, cardiomegaly, atherosclerotic disease Previous echo 06/25 demonstrated EF of 65% A&P Assessment and plan (1) Hyperkalemia: Patient presented with significant hyperkalemia Kayexalate given in the emergency department Insulin and glucose Albuterol x 2 Recheck potassium in 2 to 3 hours Hold any renal toxic medication Repeat potassium still high. Will repeat insulin and glucose. Placed on a bicarb drip. Recheck BMP in approximately 4 hours after change (2) Acute kidney injury: Fluid bolus given in the emergency department Continue IV fluids Place Dumont No evidence of obstruction on CT scan (3) Heart block AV third degree: Patient presents with third-degree heart block. This could be secondary to hyperkalemia. She was on a very small dose of carvedilol Hold any rate limiting medication Monitor for improvement with improvement of potassium Dopamine has been initiated IV. Continue currently. There is possible need for pacemaker in the future. Titrate dopamine for heart rate greater than 45, and adequate perfusion TSH has been checked and not significantly abnormal. Magnesium is not low. (4) Acute respiratory failure with hypoxia and hypercapnia: Patient with acute on chronic respiratory failure BiPAP as needed BiPAP while sleeping (5) Acute diverticulitis: Patient has acute diverticulitis noted on CT scan Zosyn initiated Blood cultures drawn (6) Anemia: Patient with anemia. Follow-up with CBC and CMP daily Plan History of CHF. No evidence of decompensation currently Other medical problems as outlined in past medical history Allow natural , confirmed with group home as well as a daughter Heparin will be used for DVT prophylaxis. Protonix for GI prophylaxis Attestations 2 Medical Necessity Statement*: Will require greater than 2 midnight stay for secondary to multiple organ dysfunction including acute kidney injury, acute respiratory failure, acute diverticulitis, third-degree heart block requiring dopamine. Critical Care Time: The high probability of a clinically significant, sudden or life threatening deterioration of the patient's [pulmonary, renal, infectious disease] system(s) required my full and direct attention, intervention and personal management. The critical care time is as shown. This time is in addition to time spent performing any reported procedures but includes the following: [x] Data and vital sign review and interpretation [x] Patient assessment, examination and intervention [x] Documentation [x] Medication orders and management Critical Care Time (min): 64 Coding Level of Care Code Critical Care >/= 30 minutes Critical care time (in minutes): 61 The high probability of a clinically significant, sudden or life threatening deterioration, as referenced in this documentation, required my full and direct attention, intervention and personal management. The critical care time shown is in addition to time spent performing any reported separately billable procedures and includes the following: [x] Data and vital sign review and interpretation [x ] Patient assessment, examination and intervention [x] Medication orders and management [x] Patient/Family updates as able [x] Care Coordination and Documentation. Diagnoses Hyperkalemia E87.5 Acute kidney injury N17.9 Heart block AV third degree I44.2 Acute respiratory failure with hypoxia and hypercapnia J96.01; J96.02 Acute diverticulitis K57.92 Anemia D64.9 Time Spent (min) 64
[2023-10-08] MEDS: pantoprazole 40 mg SDV IVP (11:18)
[2023-10-08] MEDS: piperacillin-tazobactam 3.375 GM in sodium chloride 0.9% (plus) 50 ML IV ×2 (11:23→18:02)
[2023-10-08] MEDS: sodium chloride 0.9% 1,000 ML 100 ML IV (11:23)
[2023-10-08] MEDS: heparin 5,000 unit/mL INJ 1 mL 5000 UNIT SUBCUT ×2 (11:25→23:36)
[2023-10-08] MEDS: sodium polystyrene sulfonate 15 gm/60 mL Btl 30 GM PO (11:39)
[2023-10-08] MEDS: ondansetron 2 mg/ML SDV 2 mL 4 MG IVP (11:39)
--- NOTE | 2023-10-08 13:19 | PC.NURSE ---
blood glucose 232 via fingerstick.
[2023-10-08 13:22] LABS: Glucose Point of Care 232 mg/dL (70-110)
[2023-10-08] MEDS: insulin lispro 100 unit/1 mL SUBCUT ×3 (13:38→20:49)
[2023-10-08] MEDS: albuterol 2.5 mg/3 mL Neb (13:49)
--- NOTE | 2023-10-08 13:50 | PC.NURSE ---
Skin: pt has redness noted to buttocks. pt had episode of bowel incontinence. pt gown changed, cleaned by x2 nurse assist. pt confirms all needs met at this time.
[2023-10-08 14:22] LABS: Anion Gap 21.2 (5-19); Blood Urea Nitrogen 72 mg/dL (8-23); Calcium 10.8 mg/dL (8.5-10.5); Carbon Dioxide 22 mmol/L (22-29); Chloride 100 mmol/L (98-107); Creatinine Clr Calc Pharmacy 25.4588; Glucose 214 mg/dL (65-115); Osmolality Calculated 312 mOsm/kg (285-295); Potassium 6.2 mmol/L (3.5-5.1); Sodium 137 mmol/L (136-145)
[2023-10-08 14:24] LABS: Troponin 5 6HR 43.59 ng/L (0-10); Troponin 5 6HR Delta -2.41 ng/L (0-12)
[2023-10-08 14:52] LABS: Glucose Point of Care 222 mg/dL (70-110)
[2023-10-08] MEDS: hyDROXYzine 25 mg Capsule PO (14:56)
[2023-10-08] MEDS: TRAMadol 50 mg Tablet PO (14:56)
[2023-10-08] MEDS: insulin regular-human 10 UNIT in SYRINGE 1 EACH IVP (15:05)
[2023-10-08] MEDS: dextrose 10% 125 ML 750 ML IV (15:10)
[2023-10-08 15:11] LABS: Creatine Phosphokinase 104 U/L (26-192)
[2023-10-08] MEDS: morphine 4 mg/mL SDV 1 mL 1 MG IVP ×2 (15:52→20:49)
[2023-10-08] MEDS: ipratropium-albuterol 3 mL Neb INHALATION ×2 (16:07→20:13)
[2023-10-08 16:15] LABS: Glucose Point of Care 199 mg/dL (70-110)
[2023-10-08] MEDS: DOPamine drip 400 MG/250 ML PREMIX 30.9600000000000009 MG IV (16:32)
[2023-10-08 17:40] LABS: Glucose Point of Care 169 mg/dL (70-110)
[2023-10-08] MEDS: BuSPIRONE 10 mg Tablet PO (18:02)
--- NOTE | 2023-10-08 18:43 | P.CONIM_ITS ---
Providers/Reason For Consult 2 Consulting Physician/Specialty*: MANFRED Salguero MD/cardiology Reason for Consult*: Patient with bradycardia and hypotension Requesting Physician: Dr. Rowe Attending Physician: John Rowe MD Primary Care Provider: Nazia Jha History of Present Illness History of Present Illness Lauren Jose is a 78 year old female with a multiple comorbidities, he is brought to the emergency room from the [place] [facility] ,with complaints of altered mental status, hypotension and bradycardia. She was found to be with a heart rate in the 30s and 40s. Cardiology consult is requested for further cardiac evaluation recommendations. This patient is known to have nonischemic cardiomyopathy, recurrent congestive heart failure, 1 episode of torsade, requiring CPR, COPD, type 2 diabetes, high blood pressure, dyslipidemia, chronic kidney disease, anemia, morbid obesity and sleep apnea. Today the patient apparently had her morning breakfast. Later on she was found to be very lethargic, poor mentation with a heart rate in the 30s and systolic blood pressure in the 80s. Patient did not have any chest pain, fever or chills. She was complaining of generalized pains and some nausea. The initial EKG in the emergency room revealed junctional bradycardia with a rate of 34 bpm poor R wave progression and some nonspecific IVCD. No acute ST-T changes. With IV dopamine of 10 mics, the heart rate gradually went up into the 60s. She was found to be hyperkalemic with the features of acute kidney injury. She was given IV insulin and glucose in the emergency room. Her echocardiogram in 2020 revealed ejection fraction around 38%. In June 2023, her LV ejection fraction was around 65%. Review of Systems 2 Narrative: CONSTITUTIONAL: No fever or chills. Altered mental status as mentioned above EYES: No blurring of vision or other visual disturbances lately. ENT: No hoarseness of voice, auditory disturbances or sore throat. CARDIOVASCULAR: As mentioned above. RESPIRATORY: No significant cough. GASTROINTESTINAL: Nausea and vomiting as mentioned above GENITOURINARY history chronic kidney disease INTEGUMENTARY: No skin rashes or history of skin cancer. NEURO: Altered mental status as mentioned above. History of CVA PSYCHIATRIC: History of anxiety disorder ENDOCRINE: No history of polyuria or polydipsia. MUSCULOSKELETAL: No recent joint pain or swelling. ALLERGY/IMMUNOLOGY: As mentioned above. Medications/Allergies Home Medications Medication Instructions Recorded Confirmed Last Taken Type atorvastatin 20 mg tablet (Lipitor) 20 mg PO BEDTIME 09/30/19 10/08/23 12/13/20 History acetaminophen 325 mg tablet 325 mg PO TID Pain 08/22/20 10/08/23 12/13/20 History (Tylenol) hydroxyzine HCl 25 mg tablet 25 mg PO TID PRN Anxiety 11/19/20 10/08/23 Unknown History buspirone 10 mg tablet 10 mg PO BID 12/13/20 10/08/23 12/13/20 History famotidine 20 mg tablet 20 mg PO BID 06/26/23 10/08/23 Unknown History carvedilol 3.125 mg tablet 1.5625 mg (1/2 x 3.125 mg) PO Q12H 07/04/23 10/08/23 Unknown Rx 30 days #30 tabs furosemide 40 mg tablet 40 mg PO DAILY 30 days #30 tabs 07/04/23 10/08/23 12/13/20 Rx albuterol sulfate 90 mcg/actuation 2 puff inhalation Q4H PRN 08/21/23 10/08/23 Unknown History aerosol inhaler Shortness Of Breath amlodipine 10 mg tablet 10 mg PO DAILY 08/21/23 10/08/23 Unknown History fluticasone fur. 100 mcg-umeclid 1 inh inhalation DAILY #60 ea 08/21/23 10/08/23 Unknown Rx 62.5 mcg-vilant 25 mcg inhalat.powder (Trelegy Ellipta) hydralazine 50 mg tablet 50 mg PO QID 08/21/23 10/08/23 Unknown History losartan 100 mg tablet 100 mg PO DAILY 08/21/23 10/08/23 Unknown History clonidine 0.3 mg/24 hr weekly 1 patch transdermal Q7D 09/07/23 10/08/23 Unknown History transdermal patch ([id number]) bisacodyl 10 mg rectal suppository 10 mg PA DAILY PRN Constipation 10/08/23 10/08/23 Unknown History camphor-menthol 0.2 %-3.5 % 1 applic topical TID PRN Pain 10/08/23 10/08/23 Unknown History topical gel insulin glargine-yfgn 100 unit/mL 20 unit SUBCUT BEDTIME 10/08/23 10/08/23 Unknown History (3 mL) subcutaneous pen isosorbide mononitrate 30 mg 30 mg PO DAILY 10/08/23 10/08/23 Unknown History tablet,extended release 24 hr levothyroxine 50 mcg tablet 50 mcg PO QAM 10/08/23 10/08/23 Unknown History magnesium hydroxide 400 mg/5 mL 30 ml PO DAILY PRN Constipation 10/08/23 10/08/23 Unknown History oral suspension (Milk of Magnesia) magnesium oxide 200 mg PO BID 10/08/23 10/08/23 Unknown History sodium phosphates 19 gram-7 118 ml PA DAILY PRN Constipation 10/08/23 10/08/23 Unknown History gram/118 mL enema (Fleet Enema) spironolactone 50 mg tablet 50 mg PO DAILY 10/08/23 10/08/23 Unknown History tramadol 50 mg tablet 50 mg PO DAILY 10/08/23 10/08/23 Unknown History Allergies Allergy/AdvReac Type Severity Reaction Status Date / Time No Known Allergies Allergy Verified 09/07/23 13:17 Current Medications Generic Name Dose Route Start Last Admin Trade Name Freq PRN Reason Stop Dose Admin Albuterol/Ipratropium 3 ml 10/08/23 15:00 10/08/23 16:07 Ipratropium-Albuterol 3 Ml Neb INHALATION 3 ml Q6H MAYCO Administration Buspirone HCl 10 mg 10/08/23 18:00 10/08/23 18:02 Buspirone 10 Mg Tablet PO 10 mg BID MAYCO Administration Heparin Sodium (Porcine) 5,000 unit 10/08/23 10:45 10/08/23 11:25 Heparin 5,000 Unit/Ml Inj 1 Ml SUBCUT 5,000 unit Q12H MAYCO Administration Hydroxyzine Pamoate 25 mg 10/08/23 14:50 10/08/23 14:56 Hydroxyzine 25 Mg Capsule PO 25 mg TID PRN Administration Anxiety Dopamine HCl/Dextrose 400 mg in 250 mls @ 22.113 mls/hr 10/08/23 08:45 10/08/23 17:50 Intropin Drip IV 2.5 mcg/kg/min CONT MAYCO 11.06 mls/hr Titration Protocol 5 MCG/KG/MIN Piperacillin Sod/Tazobactam 50 mls @ 12.5 mls/hr 10/08/23 11:00 10/08/23 18:02 Sod 3.375 gm/ Sodium Chloride IV 12.5 mls/hr Q8H MAYCO Administration Protocol Dextrose 125 mls @ 750 mls/hr 10/08/23 10:44 10/08/23 15:30 D10w IV Infused PRN PRN Infusion Adult Acute Hypoglycemia Nursing Protocol Protocol Sodium Bicarbonate 100 meq/ 1,100 mls @ 100 mls/hr 10/08/23 15:00 10/08/23 15:20 Dextrose IV 100 mls/hr .Q11H MAYCO Administration Insulin Human Lispro 0 unit 10/08/23 12:00 10/08/23 18:02 Insulin Lispro 100 Unit/1 Ml SUBCUT 2 unit WM&BEDTIME MAYCO Administration Protocol Morphine Sulfate 1 mg 10/08/23 15:31 10/08/23 15:52 Morphine 4 Mg/Ml Sdv 1 Ml IVP 1 mg Q4H PRN Administration SEVERE PAIN Ondansetron HCl 4 mg 10/08/23 10:44 10/08/23 11:39 Ondansetron 2 Mg/Ml Sdv 2 Ml IVP 4 mg Q6H PRN Administration NAUSEA AND VOMITING Pantoprazole Sodium 40 mg 10/08/23 10:50 10/08/23 11:18 Pantoprazole 40 Mg Sdv IVP 40 mg DAILY MAYCO Administration Tramadol HCl 50 mg 10/08/23 14:49 10/08/23 14:56 Tramadol 50 Mg Tablet PO 50 mg Q6H PRN Administration MODERATE PAIN PFSH Acute 2 PFSH: Medical History Chronic CHF (congestive heart failure) Hypokalemia Hypomagnesemia Cardiomyopathy Torsades de pointes Diarrhea Takotsubo cardiomyopathy Gastritis Blood in stool Acute HFrEF (heart failure with reduced ejection fraction) HFrEF (heart failure with reduced ejection fraction) Stress-induced cardiomyopathy Diabetes Hypertension Non-ST elevation [place] (NSTEMI) History of cerebrovascular accident COPD (chronic obstructive pulmonary disease) Hypertension Depression with anxiety History of CHF (congestive heart failure) History of GI bleed GERD (gastroesophageal reflux disease) Diabetes CVA (cerebral vascular accident) COPD (chronic obstructive pulmonary disease) Carpal tunnel syndrome on both sides Opioid contract exists Encounter for long-term use of opiate analgesic Chronic radicular low back pain Smokeless tobacco use Low back pain Surgical History History of esophagogastroduodenoscopy (EGD) (~11/2020) History of colonoscopy (~11/2020) H/O knee surgery History of knee replacement History of lumbar surgery Also history of spinal cord stimulator, currently not functioning History of shoulder surgery Family History Other CAD (coronary artery disease) Hypertension Stroke Denies family history of Anesthesia complication Bleeding disorder Social History Smoking and tobacco/nicotine status: former use of tobacco/nicotine Quit status (tobacco/nicotine): has quit using Year quit tobacco: 2012 Former quit date comment: 2ppd X 48 years Alcohol intake: never Substance/Drug Use: never Vitals/I&O/Wt Last Vital Signs Temp 97.8 F 10/08/23 08:35 Pulse 65 10/08/23 18:30 Resp 19 H 10/08/23 18:30 BP 105/66 10/08/23 18:30 Pulse Ox 98 10/08/23 18:30 O2 Del Method High Flow Nasal Cannula 10/08/23 16:30 O2 Flow Rate 5 10/08/23 16:30 10/08/23 10/08/23 10/08/23 06:59 14:59 22:59 Intake Total 558.107 / 558.107 381.080 / 939.187 Balance 558.107 / 558.107 381.080 / 939.187 Weight last 48 hrs Weight 251 lb 5.231 oz Weight 260 lb Physical Exam 2 Narrative: GENERAL: Patient generally answers to questions by yes or no. Appears to be very lethargic and drowsy HEENT: No significant pallor, icterus or lymphadenopathy.Oral cavity: There are no mucous membrane lesions. NECK: Trachea appears to be central. No masses noted. No JVD or thyromegaly appreciated. RESPIRATORY: Chest is symmetrical. No intercostals muscle retraction or any accessory muscle activation. There is no chest wall tenderness. Breath sounds are heard bilaterally. No rales or rhonchi heard. No evidence of any consolidation. BREASTS: Deferred. HEART: The heart sounds are normal. No S3 or S4. Ejection stock murmur grade 3/6 at the base of the heart. No diastolic murmurs. ABDOMEN: No vessel pulsations or distention. No tenderness. No organomegaly appreciated. Bowel sounds are normally heard. : Deferred. RECTAL: Deferred. LYMPHATIC: No lymphadenopathy noted in the neck. EXTREMITIES: No edema or cyanosis. No clubbing. Peripheral pulses are palpable but weak bilaterally MUSCULOSKELETAL: No acute joint deformities or swelling SKIN: There are no significant rashes or ecchymosis NEUROPSYCHIATRIC: Extreme lethargy. Moving all extremities. Urinary Catheter Management: Dumont: Cath Placed During This Visit: yes Reason for Continuing Indwelling Catheter: Accurate Measurement of Urinary Output in Critically Ill Patients Urinary Catheter Date of Insertion: 10/08/23 Urinary Catheter Time of Insertion: 09:30 Data 10/08/23 08:07 10/08/23 13:45 Micro: Microbiology 10/08/23 11:12 Blood Culture - Preliminary Blood SPECIMEN COLLECTED 10/08/23 11:07 Blood Culture - Preliminary Blood SPECIMEN COLLECTED EKG 1: My Interpretation: Junctional bradycardia with a rate of 34 bpm. Nonspecific IVCD. Poor R wave progression. EKG 2: My Interpretation: Normal sinus rhythm with normal ST Ts. A&P Assessment and plan (1) Bradycardia: Patient seems to have junctional bradycardia most likely from the hyperkalemia and acute kidney injury. The heart rate seems to be slowly improving with the dopamine. At this point, patient does not require any pacing. She needs to be closely monitored on telemetry. The electrolyte imbalance needs to be corrected. (2) Heart failure with improved ejection fraction (HFimpEF): Clinically appears to be compensated. May be given as needed Lasix. (3) Hypotension: The hypertension also is improving. Qualifiers: Hypotension type: unspecified hypotension type Qualified Code(s): I95.9 - Hypotension, unspecified (4) Cardiomyopathy: This patient has a history of Takotsubo syndrome. The ejection fraction seems to have improved at this point. Qualifiers: Cardiomyopathy type: dilated Qualified Code(s): I42.0 - Dilated cardiomyopathy (5) Acute encephalopathy: Etiology is not clear. Hypotension bradycardia could be a contributing factor. Other etiologies cannot be excluded. (6) Acute kidney injury: The etiology is not clear. Could be multifactorial. Plan Patient is to be closely monitored on telemetry. Will be checking the thyroid profile. Electrolytes need to be checked periodically. Patient the clinical progress, further recommendations will be made Consult Attestations 2 Medical Necessity Statement: Patient requires continued hospital stay for close monitoring and further management Coding Level of Care Code 80634 Diagnoses Bradycardia R00.1 Heart failure with improved ejection fraction (HFimpEF) I50.32 Hypotension, unspecified hypotension type I95.9 Hypotension type: unspecified hypotension type Dilated cardiomyopathy I42.0 Cardiomyopathy type: dilated Acute encephalopathy G93.40 Acute kidney injury N17.9
[2023-10-08] MEDS: budesonide 0.5 mg/2 mL Neb INHALATION (20:13)
[2023-10-08 20:31] LABS: Glucose Point of Care 166 mg/dL (70-110)
[2023-10-08 21:05] LABS: Glucose Point of Care 166 mg/dL (70-110)
[2023-10-08 21:55] LABS: Glucose Point of Care 165 mg/dL (70-110)
[2023-10-08 22:25] LABS: Blood Urea Nitrogen 66 mg/dL (8-23); Calcium 10.5 mg/dL (8.5-10.5); Carbon Dioxide 27 mmol/L (22-29); Chloride 98 mmol/L (98-107); Creatinine Clr Calc Pharmacy 29.7011; Glucose 169 mg/dL (65-115); Osmolality Calculated 305 mOsm/kg (285-295); Sodium 136 mmol/L (136-145)
[2023-10-09] VITALS (68 sets, daily range): BP systolic 113–155; BP diastolic 47–111; PULSE 58–85; RESP 12–23; TEMP 36.7–37.1; O2SAT 87–99
[2023-10-09] MEDS: ipratropium-albuterol 3 mL Neb INHALATION ×4 (03:00→19:58)
[2023-10-09] MEDS: piperacillin-tazobactam 3.375 GM in sodium chloride 0.9% (plus) 50 ML IV ×3 (03:00→18:23)
[2023-10-09 04:50] LABS: Basophils % 0.4 %; Eosinophils # 0.1 10^3/uL (0.0-0.8); Eosinophils % 0.5 %; Hematocrit 32.5 % (36-47); Lymphocytes # 0.8 10^3/uL (0.8-4.8); Lymphocytes % 7.8 %; Mean Corpuscular HGB Conc 31.7 g/dL (30-55); Mean Corpuscular Hemoglobin 29.7 pg (27-33); Mean Corpuscular Volume 93.7 fl (85-98); Mean Platelet Volume 9.6 fL (7.4-10.4); Monocytes # 0.9 10^3/uL (0.2-0.9); Monocytes % 8.5 %; Neutrophils # 8.57 10^3/uL (1.8-7.7); Neutrophils % 82.2 %; Nucleated Red Blood Cells % 0 %; Platelet Count 271 10^3/cmm (157-399); Red Blood Count 3.47 10^6/uL (3.85-5.65); Red Cell Distribution Width 14.2 % (12.1-15.1); White Blood Count 10.42 10^3/uL (3.29-11.43)
[2023-10-09 05:16] LABS: Alanine Aminotransferase 11 U/L (0-33); Albumin Level 3.8 g/dL (3.5-5.2); Alkaline Phosphatase 64 U/L (35-105); Anion Gap 16.4 (5-19); Aspartate Amino Transferase 15 U/L (0-32); Blood Urea Nitrogen 60 mg/dL (8-23); Calcium 10.1 mg/dL (8.5-10.5); Carbon Dioxide 30 mmol/L (22-29); Chloride 97 mmol/L (98-107); Creatinine Clr Calc Pharmacy 34.4533; Glucose 161 mg/dL (65-115); Osmolality Calculated 306 mOsm/kg (285-295); Potassium 5.4 mmol/L (3.5-5.1); Sodium 138 mmol/L (136-145); Total Bilirubin 0.8 mg/dL (0.15-1.2); Total Protein 6.8 g/dL (6.6-8.7)
[2023-10-09] MEDS: levothyroxine 50 mcg Tablet PO (05:42)
[2023-10-09] MEDS: TRAMadol 50 mg Tablet PO (05:42)
[2023-10-09] MEDS: budesonide 0.5 mg/2 mL Neb INHALATION ×2 (08:00→19:58)
--- NOTE | 2023-10-09 08:11 | P.PN_ITS ---
Subjective 2 Subjective: Patient is feeling much better. The electrolyte abnormalities are improving. The patient is more alert and is responding appropriately to verbal commands Medications: Medication Review Details: Current Medications Albuterol/Ipratropium (Ipratropium-Albuterol 3 Ml Neb) 3 ml INHALATION Q6H.RESP [facility] Last Admin: 10/09/23 08:00 Dose: 3 ml Amlodipine Besylate (Amlodipine 10 Mg Tablet) 10 mg PO DAILY [facility] Atorvastatin Calcium (Atorvastatin 40 Mg Tablet) 20 mg PO BEDTIME [facility] Budesonide (Budesonide 0.5 Mg/2 Ml Neb) 0.5 mg INHALATION BID.RESPIRATORY [facility]CO Last Admin: 10/09/23 08:00 Dose: 0.5 mg Buspirone HCl (Buspirone 10 Mg Tablet) 10 mg PO BID [facility] Last Admin: 10/08/23 18:02 Dose: 10 mg Heparin Sodium (Porcine) (Heparin 5,000 Unit/Ml Inj 1 Ml) 5,000 unit SUBCUT Q12H [facility] Last Admin: 10/08/23 23:36 Dose: 5,000 unit Hydroxyzine Pamoate (Hydroxyzine 25 Mg Capsule) 25 mg PO TID PRN PRN Reason: Anxiety Last Admin: 10/08/23 14:56 Dose: 25 mg Piperacillin Sod/Tazobactam (Sod 3.375 gm/ Sodium Chloride) 50 mls @ 12.5 mls/hr IV Q8H [facility]; Protocol Last Infusion: 10/09/23 06:43 Dose: Infused Dextrose (D5w) 500 mls @ 0 mls/hr IV ONCE PRN; Protocol PRN Reason: Adult Acute Hypoglycemia Prot Dextrose (D10w) 125 mls @ 750 mls/hr IV PRN PRN; Protocol PRN Reason: Adult Acute Hypoglycemia Nursing Protocol Last Infusion: 10/08/23 15:30 Dose: Infused Dextrose (D10w) 250 mls @ 1,000 mls/hr IV PRN PRN; Protocol PRN Reason: Adult Acute Hypoglycemia Nursing Protocol Dextrose (D10w) 125 mls @ 750 mls/hr IV PRN PRN PRN Reason: HYPOGLYCEMIA Sodium Chloride (Sodium Chloride 0.9%) 1,000 mls @ 100 mls/hr IV .Q10H [facility] Insulin Human Lispro (Insulin Lispro 100 Unit/1 Ml) 0 unit SUBCUT WM&BEDTIME [facility]CO; Protocol Last Admin: 10/08/23 20:49 Dose: 2 unit Isosorbide Mononitrate (Isosorbide Mononitrate Er 30 Mg Tablet) 30 mg PO DAILY [facility] Levothyroxine Sodium (Levothyroxine 50 Mcg Tablet) 50 mcg PO QAM [facility] Last Admin: 10/09/23 05:42 Dose: 50 mcg Lorazepam (Lorazepam 2 Mg/Ml Inj 10 Ml Mdv) 0.5 mg IVP Q6H PRN PRN Reason: ANXIETY Morphine Sulfate (Morphine 4 Mg/Ml Sdv 1 Ml) 1 mg IVP Q4H PRN PRN Reason: SEVERE PAIN Last Admin: 10/08/23 20:49 Dose: 1 mg Ondansetron HCl (Ondansetron 2 Mg/Ml Sdv 2 Ml) 4 mg IVP Q6H PRN PRN Reason: NAUSEA AND VOMITING Last Admin: 10/08/23 11:39 Dose: 4 mg Pantoprazole Sodium (Pantoprazole Dr 40 Mg Tablet) 40 mg PO DAILY [facility] Tramadol HCl (Tramadol 50 Mg Tablet) 50 mg PO Q6H PRN PRN Reason: MODERATE PAIN Last Admin: 10/09/23 05:42 Dose: 50 mg Vitals/I&O/Wt Last Vital Signs Temp 98.8 F 10/09/23 07:33 Pulse 70 10/09/23 08:08 Resp 18 10/09/23 08:00 BP 113/74 10/09/23 07:33 Pulse Ox 95 10/09/23 08:00 O2 Del Method Nasal Cannula 10/09/23 08:00 O2 Flow Rate 5 10/09/23 08:00 FiO2 40 10/09/23 03:02 10/08/23 10/09/23 10/09/23 22:59 06:59 14:59 Intake Total 393.430 / 819.430 2279 / 2151.537 583 / 583 Output Total 900 / 900 1400 / 2300 Balance -506.570 / 51.537 -200 / -148.463 583 / 583 Weight last 48 hrs Weight 251 lb Weight 251 lb 5.231 oz Weight 260 lb Physical Exam 2 Narrative: GENERAL: Patient is alert and oriented to place and person HEENT: No significant pallor, icterus or lymphadenopathy.Oral cavity: There are no mucous membrane lesions. NECK: Trachea appears to be central. No masses noted. No JVD or thyromegaly appreciated. RESPIRATORY: Chest is symmetrical. No intercostals muscle retraction or any accessory muscle activation. There is no chest wall tenderness. Breath sounds are heard bilaterally. No rales or rhonchi heard. No evidence of any consolidation. BREASTS: Deferred. HEART: The heart sounds are normal. No S3 or S4. Ejection stock murmur grade 3/6 at the base of the heart. No diastolic murmurs. ABDOMEN: No vessel pulsations or distention. No tenderness. No organomegaly appreciated. Bowel sounds are normally heard. : Deferred. RECTAL: Deferred. LYMPHATIC: No lymphadenopathy noted in the neck. EXTREMITIES: No edema or cyanosis. No clubbing. Peripheral pulses are palpable but weak bilaterally MUSCULOSKELETAL: No acute joint deformities or swelling SKIN: There are no significant rashes or ecchymosis NEUROPSYCHIATRIC: No focal neurological deficit. Urinary Catheter Management: Dumont: Cath Placed During This Visit: yes Reason for Continuing Indwelling Catheter: Accurate Measurement of Urinary Output in Critically Ill Patients Urinary Catheter Date of Insertion: 10/08/23 Urinary Catheter Time of Insertion: 09:30 Data 10/09/23 04:39 10/09/23 04:39 Micro: Microbiology 10/08/23 11:12 Blood Culture - Preliminary Blood SPECIMEN COLLECTED 10/08/23 11:07 Blood Culture - Preliminary Blood SPECIMEN COLLECTED A&P Assessment and plan (1) Bradycardia: Patient is rhythm has returned to normal sinus. The heart rate in the 60s and 70s. Most likely the junctional rhythm was secondary to the electrolyte abnormalities (2) Heart failure with improved ejection fraction (HFimpEF): Clinically appears to be compensated. May be given as needed Lasix. (3) Hypotension: The vasopressors are being weaned off Qualifiers: Hypotension type: unspecified hypotension type Qualified Code(s): I95.9 - Hypotension, unspecified (4) Cardiomyopathy: This patient has a history of Takotsubo syndrome. The ejection fraction seems to have improved at this point-based on the echocardiogram from June of last year Qualifiers: Cardiomyopathy type: dilated Qualified Code(s): I42.0 - Dilated cardiomyopathy (5) Acute encephalopathy: The symptoms have significantly improved. (6) Acute kidney injury: The BUN/creatinine are improving Plan Since the patient is a cardiovascular status seems to be stable at this point, I may sign off. Please feel free to contact me/cardiology with any further questions. Discussed with Dr. Rowe Attestations 2 Medical Necessity Statement*: Disposition as per Dr. Gunderson Coding Level of Care Code 32255 Diagnoses Bradycardia R00.1 Heart failure with improved ejection fraction (HFimpEF) I50.32 Hypotension, unspecified hypotension type I95.9 Hypotension type: unspecified hypotension type Dilated cardiomyopathy I42.0 Cardiomyopathy type: dilated Acute encephalopathy G93.40 Acute kidney injury N17.9
[2023-10-09 08:16] LABS: Glucose Point of Care 161 mg/dL (70-110)
--- NOTE | 2023-10-09 09:12 | P.PN_ITS ---
Subjective 2 Subjective: Lauren reports she is doing better. No abdominal pain. Denies shortness of breath. No chest pain. Denies any vomiting. Think she can eat. Medications: Reviewed: Yes Vitals/I&O/Wt Last Vital Signs Temp 98.8 F 10/09/23 07:33 Pulse 70 10/09/23 08:08 Resp 18 10/09/23 08:00 BP 113/74 10/09/23 07:33 Pulse Ox 95 10/09/23 08:00 O2 Del Method Nasal Cannula 10/09/23 08:00 O2 Flow Rate 5 10/09/23 08:00 FiO2 40 10/09/23 03:02 10/08/23 10/09/23 10/09/23 22:59 06:59 14:59 Intake Total 393.430 / 217.592 4180 / 2151.537 583 / 583 Output Total 900 / 900 1400 / 2300 Balance -506.570 / 51.537 -200 / -148.463 583 / 583 Weight last 48 hrs Weight 113.852 kg Weight 114 kg Weight 117.934 kg Physical Exam 2 Narrative: General exam is a white female, No longer yelling out, can carry on a conversation Neck is supple no lymphadenopathy thyromegaly. Cardiovascular bradycardic, regular, no murmur Lungs diminished breath sounds bilaterally no wheezes or crackles Abdomen some global tenderness. Obese. Cannot determine organomegaly Extremities no sinus clubbing edema, cap refill brisk Urinary Catheter Management: Dumont: Cath Placed During This Visit: yes Reason for Continuing Indwelling Catheter: Accurate Measurement of Urinary Output in Critically Ill Patients Urinary Catheter Date of Insertion: 10/08/23 Urinary Catheter Time of Insertion: 09:30 Data 10/09/23 04:39 10/09/23 04:39 Micro: Microbiology 10/08/23 11:12 Blood Culture - Preliminary Blood SPECIMEN COLLECTED 10/08/23 11:07 Blood Culture - Preliminary Blood SPECIMEN COLLECTED A&P Assessment and plan (1) Hyperkalemia: Patient presented with significant hyperkalemia Kayexalate given in the emergency department Insulin and glucose given, calcium given Albuterol x 2 given Potassium level markedly better today Hold any renal toxic medication Discontinue bicarbonate fluids given for significant acidosis, hyperkalemia and normal saline 75 cc an hour initiated (2) Acute kidney injury: Fluid bolus given in the emergency department Change fluids as above Continue Dumont. Possible discontinuation tomorrow if continues to improve No evidence of obstruction on CT scan Renal function improving (3) Heart block AV third degree: Patient presents with third-degree heart block. This could be secondary to hyperkalemia. She was on a very small dose of carvedilol Hold any rate limiting medication. She was requiring dopamine. This has been discontinued Discussed with cardiology. Likely heart block secondary to hyperkalemia. Continue to monitor but no pacemaker placement planned TSH has been checked and not significantly abnormal. Magnesium is not low. (4) Acute respiratory failure with hypoxia and hypercapnia: Patient with acute on chronic respiratory failure BiPAP as needed BiPAP while sleeping (5) Acute diverticulitis: Patient has acute diverticulitis noted on CT scan Continue Zosyn Await blood culture Diet can be advanced (6) Anemia: Patient with anemia. Follow-up with CBC and CMP daily Plan History of CHF. No evidence of decompensation currently Other medical problems as outlined in past medical history Allow natural , confirmed with [facility] as well as a daughter Heparin will be used for DVT prophylaxis. Protonix for GI prophylaxis May transfer to [facility] Attestations 2 Medical Necessity Statement*: Needs continued hospitalization for close monitoring for follow-up of acute kidney injury, hyperkalemia, cardiac dysrhythmia. Still at significant high risk with her continued renal abnormalities and mild hyperkalemia Diagnoses Hyperkalemia E87.5 Acute kidney injury N17.9 Heart block AV third degree I44.2 Acute respiratory failure with hypoxia and hypercapnia J96.01; J96.02 Acute diverticulitis K57.92 Anemia D64.9 Time Spent (min) 26
[2023-10-09] MEDS: pantoprazole DR 40 mg Tablet PO (09:13)
[2023-10-09] MEDS: insulin lispro 100 unit/1 mL SUBCUT ×4 (09:13→21:06)
[2023-10-09] MEDS: BuSPIRONE 10 mg Tablet PO ×2 (09:13→17:48)
[2023-10-09] MEDS: sodium chloride 0.9% 1,000 ML 100 ML IV (09:14)
[2023-10-09] MEDS: amlodipine 10 mg Tablet PO (10:14)
[2023-10-09] MEDS: heparin 5,000 unit/mL INJ 1 mL 5000 UNIT SUBCUT ×2 (10:14→22:36)
[2023-10-09] MEDS: isosorbide mononitrate ER 30 mg Tablet PO (10:14)
[2023-10-09 12:26] LABS: Glucose Point of Care 166 mg/dL (70-110)
[2023-10-09 17:06] LABS: Glucose Point of Care 147 mg/dL (70-110)
[2023-10-09 20:47] LABS: Glucose Point of Care 161 mg/dL (70-110)
[2023-10-09] MEDS: atorvastatin 40 mg Tablet 20 MG PO (21:06)
[2023-10-09] MEDS: sodium chloride 0.9% 1,000 ML 75 ML IV (21:06)
[2023-10-10] VITALS (11 sets, daily range): BP systolic 116–162; BP diastolic 51–66; PULSE 54–70; RESP 14–20; TEMP 36.6–37.2; O2SAT 94–98
[2023-10-10] MEDS: morphine 4 mg/mL SDV 1 mL 1 MG IVP ×2 (00:26→06:10)
--- NOTE | 2023-10-10 00:51 | USR_ITS ---
PROCEDURE INFORMATION: Exam: US Duplex Right Upper Extremity Veins, Limited Exam date and time: 10/10/2023 1:39 AM Age: 78 years old Clinical indication: Pain; Arm, upper; Right; Additional info: Check for dvt TECHNIQUE: Imaging protocol: Real-time duplex ultrasound of the right Upper Extremity with 2-D vieira scale, color Doppler flow and spectral waveform analysis with image documentation. Limited exam focused on the right upper extremity veins. COMPARISON: CT angio chest w abd pel w con 06/26/2023 2:20 PM FINDINGS: Right deep veins: Unremarkable. Axillary and brachial veins are patent throughout without thrombus. Normal Doppler waveforms. Normal compressibility and/or augmentation response. Visualized internal jugular and subclavian veins are patent. Superficial veins: Superficial thrombus in the right cephalic vein. Soft tissues: Unremarkable. US/[place] [address] IMPRESSION: 1. No evidence of deep vein thrombosis. 2. Superficial thrombus in the right cephalic vein.
--- NOTE | 2023-10-10 01:16 | PC.NURSE ---
pt started to complain of extreme pain in her righ ac. pt slow to move an straighten. redness, pain and heat at site. nurse called and received new orders for a venous duplex of right upper arm ordered.
[2023-10-10] MEDS: ipratropium-albuterol 3 mL Neb INHALATION ×2 (02:18→08:08)
[2023-10-10] MEDS: piperacillin-tazobactam 3.375 GM in sodium chloride 0.9% (plus) 50 ML IV (03:00)
[2023-10-10] MEDS: levothyroxine 50 mcg Tablet PO (06:11)
[2023-10-10 06:13] LABS: Basophils # 0.1 10^3/uL (0.0-0.1); Basophils % 0.7 %; Eosinophils # 0.3 10^3/uL (0.0-0.8); Eosinophils % 3.6 %; Lymphocytes # 1.2 10^3/uL (0.8-4.8); Mean Corpuscular HGB Conc 30.6 g/dL (30-55); Mean Corpuscular Hemoglobin 29.8 pg (27-33); Mean Corpuscular Volume 97.2 fl (85-98); Mean Platelet Volume 9.9 fL (7.4-10.4); Monocytes # 0.8 10^3/uL (0.2-0.9); Monocytes % 10.8 %; Neutrophils # 4.82 10^3/uL (1.8-7.7); Neutrophils % 67.3 %; Nucleated Red Blood Cells % 0 %; Platelet Count 234 10^3/cmm (157-399); Red Blood Count 3.19 10^6/uL (3.85-5.65); Red Cell Distribution Width 14.2 % (12.1-15.1); White Blood Count 7.16 10^3/uL (3.29-11.43)
[2023-10-10 06:25] LABS: Anion Gap 12.9 (5-19); Blood Urea Nitrogen 36 mg/dL (8-23); Calcium 9.7 mg/dL (8.5-10.5); Carbon Dioxide 31 mmol/L (22-29); Chloride 100 mmol/L (98-107); Creatinine Clr Calc Pharmacy 63.3533; Glucose 123 mg/dL (65-115); Magnesium 1.7 mg/dL (1.7-2.3); Osmolality Calculated 298 mOsm/kg (285-295); Potassium 4.9 mmol/L (3.5-5.1); Sodium 139 mmol/L (136-145)
[2023-10-10 06:33] LABS: Glucose Point of Care 133 mg/dL (70-110)
--- NOTE | 2023-10-10 07:39 | P.PN_ITS ---
Subjective 2 Subjective: Lauren was admitted with bradycardia. This was related to acute kidney injury and hyperkalemia. She has multiple underlying comorbidities and lives in a residential. She is in and out of the hospital frequently for these problems. I saw her once in the clinic a few months ago when she was unable to get in with her regular glass installer technician. Her problem list is long and fairly complicated. She is admitted not infrequently with encephalopathy. Now that her renal insufficiency is improved and her potassium is back down to she is back in sinus rhythm. Her creatinine is down to 1.4. Her potassium is down to 4.9. When she was admitted it was 6. She is asleep this morning. She does not remember our office visit a few months ago. She does not have any complaints other than what is her usual long list of chronic complaints. Vitals/I&O/Wt Last Vital Signs Temp 98.9 F 10/10/23 04:00 Pulse 70 10/10/23 07:13 Resp 14 10/10/23 07:13 BP 116/54 10/10/23 07:13 Pulse Ox 94 10/10/23 07:13 O2 Del Method Nasal Cannula 10/10/23 07:13 O2 Flow Rate 3 10/10/23 02:18 FiO2 40 10/09/23 23:20 10/09/23 10/10/23 10/10/23 22:59 06:59 14:59 Intake Total 1261.25 / 2295.917 400 / 2695.917 Output Total 450 / 1550 1500 / 3050 Balance 811.25 / 745.917 -1100 / -354.083 Weight last 48 hrs Weight 258 lb 12.8 oz Weight 251 lb Weight 251 lb 5.231 oz Weight 260 lb Physical Exam 2 Narrative: GENERAL: General she is comfortable resting on supplemental oxygen HEENT: Exam within normal limits. NECK: Supple without jugular vein distention. The carotid upstroke is normal without bruits. BACK: Exam normal. LUNGS: Clear. HEART: Regular rate and rhythm. ABDOMEN: Benign without organomegaly or tenderness. EXTREMITIES: No edema. NEUROLOGIC: Exam normal. SKIN: Unremarkable. Urinary Catheter Management: Dumont: Cath Placed During This Visit: yes Reason for Continuing Indwelling Catheter: Accurate Measurement of Urinary Output in Critically Ill Patients Urinary Catheter Date of Insertion: 10/08/23 Urinary Catheter Time of Insertion: 09:30 Data 10/10/23 05:26 10/10/23 05:26 Micro: Microbiology 10/08/23 11:12 Blood Culture - Preliminary Blood NEGATIVE TO DATE 10/08/23 11:07 Blood Culture - Preliminary Blood NEGATIVE TO DATE A&P Assessment and plan (1) Hypertension: (2) Stress-induced cardiomyopathy: (3) Acute HFrEF (heart failure with reduced ejection fraction): (4) Cardiomyopathy: Qualifiers: Cardiomyopathy type: dilated Qualified Code(s): I42.0 - Dilated cardiomyopathy (5) Chronic CHF (congestive heart failure): Qualifiers: Heart failure type: combined systolic and diastolic Qualified Code(s): I50.42 - Chronic combined systolic (congestive) and diastolic (congestive) heart failure (6) Opioid contract exists: (7) Diabetes: (8) Morbid obesity: (9) Acute kidney injury: (10) Hyperkalemia: (11) COPD (chronic obstructive pulmonary disease): (12) Shortness of breath: (13) Obesity hypoventilation syndrome: Plan She is improved. Heart block has resolved. Creatinine is coming down. Potassium is within normal range. I will sign off. Call if if there are questions or needs. She can go back to the residential anytime from a cardiac standpoint on her regular medications. She should have a follow-up in the office with her regular glass installer technician, Dr. Chowdhury Attestations 2 Medical Necessity Statement*: Management of renal insufficiency, hyperkalemia and heart block and Moderate Time for a total of 30 minutes, includes reviewing past or interval history, examining/interviewing patient, updating patient/family/other support and documenting encounter Diagnoses Hypertension I10 Stress-induced cardiomyopathy I51.81 Acute HFrEF (heart failure with reduced ejection fraction) I50.21 Dilated cardiomyopathy I42.0 Cardiomyopathy type: dilated Chronic combined systolic and diastolic congestive heart failure I50.42 Heart failure type: combined systolic and diastolic Opioid contract exists Z79.891 Diabetes E11.9 Morbid obesity E66.01 Acute kidney injury N17.9 Hyperkalemia E87.5 COPD (chronic obstructive pulmonary disease) J44.9 Shortness of breath R06.02 Obesity hypoventilation syndrome E66.2
[2023-10-10] MEDS: budesonide 0.5 mg/2 mL Neb INHALATION (08:06)
--- NOTE | 2023-10-10 08:12 | PC.NURSE ---
Called [facility] and spoke to Kashif Kee, RN Supervisor [employer] to make sure that they were ok with taking pt back today as the last CM note states that [facility] would call back after talking to nursing staff but I didn't see any other notes. In any case, they were willing to calderon the pt back and I went ahead and gave report to Kashif at this time. notified
--- NOTE | 2023-10-10 09:10 | PM.DCS ---
Discharge Providers Date of Admission: 10/08/23 10:14 Date of Discharge: October 10, 2023 Attending Provider at Admission: John Rowe MD Attending Provider at Discharge: Stacey Fowler MD Primary Care Provider: Nazia Jha Diagnoses at Discharge Discharge Diagnosis (1) Hypertension: Status: Acute (2) Stress-induced cardiomyopathy: Status: Acute (3) Acute HFrEF (heart failure with reduced ejection fraction): Status: Acute (4) Cardiomyopathy: Status: Acute Qualifiers: Cardiomyopathy type: dilated Qualified Code(s): I42.0 - Dilated cardiomyopathy (5) Chronic CHF (congestive heart failure): Status: Acute Qualifiers: Heart failure type: combined systolic and diastolic Qualified Code(s): I50.42 - Chronic combined systolic (congestive) and diastolic (congestive) heart failure (6) Opioid contract exists: Status: Chronic (7) Diabetes: Status: Acute (8) Morbid obesity: Status: Acute (9) Acute kidney injury: Status: Acute (10) Hyperkalemia: Status: Acute (11) COPD (chronic obstructive pulmonary disease): Status: Acute (12) Shortness of breath: Status: Acute (13) Obesity hypoventilation syndrome: Status: Acute Reason for Visit Reason for Visit: bradycardia, abd pain Hospital Course Hospital Course 78-year-old female who was admitted from [facility], for decreased responsiveness related to acute renal failure, hyperkalemia, acidosis, she was put on BiPAP that improved her mentation, she was given hyperkalemia cocktail, her potassium improved as well please note she was given dopamine for significant bradycardia and high degree AV block, cardiology was consulted, as soon as her potassium improved her AV linda blockade EKG improved to sinus, she did not require a pacemaker, remained chest pain-free, improved with BiPAP, at baseline uses 3 L of oxygen, uses a wheelchair to ambulate, creatinine has improved along potassium. Acidosis improved as well. Creatinine at the time of discharge is 1.4. it peaked to 3.5. Adequate urine output. Avoid nephrotoxic agents at the time of discharge. Would avoid clonidine. Hold losartan and spironolactone change antihypertensive regimen to amlodipine and hydralazine. She will be discharged back to [facility] on 3 L nasal cannula. Patient had a bowel movement yesterday, able to eat. She is being discharged with stable hemodynamics. Please note CT abdomen pelvis was consistent with diverticulitis she never experienced an abdominal pain or significant diarrhea, I will give her Augmentin 5-day course at the time of discharge. However follow-up with a building services engineer outpatient. CODE STATUS: DNR/DNI Physical Exam Narrative: Awake and alert Try to eat breakfast She did not like breakfast on day of discharge GCS 15 Lower extremity no edema Currently on 4 L Abdomen distended however nontender Urinary Catheter Management: Dumont: Cath Placed During This Visit: yes Reason for Continuing Indwelling Catheter: Accurate Measurement of Urinary Output in Critically Ill Patients Urinary Catheter Date of Insertion: 10/08/23 Urinary Catheter Time of Insertion: 09:30 Discharge Data Studies Completed and Pending Completed Studies During Hospitalization Category Date Time Status CT abdomen pelvis wo con [id number] Stat Cat Scan 10/08/23 08:41 Completed XR chest 1V portable [id number] Stat Exams 10/08/23 10:05 Completed US venous duplex upper extremity RT [CV venous duplex Ultrasound 10/10/23 00:51 [place] [id number]] Routine Pending at discharge Category Date Time Status Blood Culture Stat Lab 10/08/23 11:12 Results Radiology Impressions Venous Duplex 10/10/23 00:51 IMPRESSION: 1. No evidence of deep vein thrombosis. 2. Superficial thrombus in the right cephalic vein. Laboratory Results WBC 7.16 10^3/uL (3.29-11.43) 10/10/23 05:26 RBC 3.19 10^6/uL (3.85-5.65) L 10/10/23 05:26 Hgb 9.50 g/dL (11.27-16.99) L 10/10/23 05:26 Hct 31.0 % (36-47) L 10/10/23 05:26 MCV 97.2 fl (85-98) 10/10/23 05:26 MCH 29.8 pg (27-33) 10/10/23 05:26 MCHC 30.6 g/dL (30-55) 10/10/23 05:26 RDW 14.2 % (12.1-15.1) 10/10/23 05:26 Plt Count 234 10^3/cmm (157-399) 10/10/23 05:26 MPV 9.9 fL (7.4-10.4) 10/10/23 05:26 Neut % (Auto) 67.3 % 10/10/23 05:26 Lymph % (Auto) 17.0 % 10/10/23 05:26 [place] % (Auto) 10.8 % 10/10/23 05:26 Eos % (Auto) 3.6 % 10/10/23 05:26 Baso % (Auto) 0.7 % 10/10/23 05:26 Neut # (Auto) 4.82 10^3/uL (1.8-7.7) 10/10/23 05:26 Lymph # (Auto) 1.2 10^3/uL (0.8-4.8) 10/10/23 05:26 [place] # (Auto) 0.8 10^3/uL (0.2-0.9) 10/10/23 05:26 Eos # (Auto) 0.3 10^3/uL (0.0-0.8) 10/10/23 05:26 Baso # (Auto) 0.1 10^3/uL (0.0-0.1) 10/10/23 05:26 Nucleated RBC % (auto) 0 % 10/10/23 05: Nucleated RBCs # 0.0 /100WBC 10/10/23 05:26 Specimen Type Arterial 10/08/23 10:34 Sample Site Rb 10/08/23 10:34 ABG pH 7.21 (7.35-7.45) L 10/08/23 10:34 ABG pCO2 56.4 mmHg (35-45) H 10/08/23 10:34 ABG pO2 83.5 mmHg (80.0-100.0) 10/08/23 10:34 ABG HCO3 22.6 mmol/L (22-26) 10/08/23 10:34 ABG O2 Saturation 96.1 10/08/23 10:34 ABG Base Excess -5.6 mmol/L (-2.0-2.0) L 10/08/23 10:34 Cornel Test Pos 10/08/23 10:34 A-a O2 Gradient Not Reportable 10/08/23 10:34 Hematocrit 35.7 % (37-47) L 10/08/23 10:34 Hgb O2 Saturation 94.8 % (95-100) L 10/08/23 10:34 Carboxyhemoglobin 0.8 %THgb (0.4-20.1) 10/08/23 10:34 Methemoglobin 0.5 % (0.4-1.5) 10/08/23 10:34 Total Hemoglobin 11.7 g/dL (12-16) L 10/08/23 10:34 Sodium 139.0 mmol/L (131-143) 10/08/23 10:34 Potassium 5.8 mmol/L (3.5-5.0) H 10/08/23 10:34 Glucose 214.0 mg/dL (70-115) H 10/08/23 10:34 Ionized Calcium 1.7 mmol/L (1.1-1.4) H 10/08/23 10:34 O2 Delivery Device Nc 10/08/23 10:34 Stunt Double ID Glc 10/08/23 10:34 Sodium 139 mmol/L (136-145) 10/10/23 05:26 Potassium 4.9 mmol/L (3.5-5.1) 10/10/23 05:26 Chloride 100 mmol/L (98-107) 10/10/23 05:26 Carbon Dioxide 31 mmol/L (22-29) H 10/10/23 05:26 Anion Gap 12.9 (5-19) 10/10/23 05:26 BUN 36 mg/dL (8-23) H 10/10/23 05:26 Creatinine 1.4 mg/dL (0.5-0.9) H 10/10/23 05:26 GFR Calculation Not Reportable 10/10/23 05:26 Glucose 123 mg/dL (65-115) H 10/10/23 05:26 POC Glucose 133 mg/dL (70-110) H 10/10/23 06:17 Calculated Osmolality 298 mOsm/kg (285-295) H 10/10/23 05:26 Lactic Acid 2.0 mmol/L (0.5-2.2) 10/08/23 08:07 Calcium 9.7 mg/dL (8.5-10.5) 10/10/23 05:26 Magnesium 1.7 mg/dL (1.7-2.3) 10/10/23 05:26 Total Bilirubin 0.8 mg/dL (0.15-1.2) 10/09/23 04:39 AST 15 U/L (0-32) 10/09/23 04:39 ALT 11 U/L (0-33) 10/09/23 04:39 Alkaline Phosphatase 64 U/L (35-105) 10/09/23 04:39 Ammonia 22 umol/L (11-51) 10/08/23 09:56 Creatine Kinase 104 U/L (26-192) 10/08/23 13:45 Troponin T Baseline 46 ng/L (0-10) H 10/08/23 08:07 Troponin T 120 Minute 44.19 ng/L (0-10) H 10/08/23 09:56 Delta Troponin T -1.81 ABS# (0-10) L 10/08/23 09:56 Troponin T Hi Sens 6Hr 43.59 ng/L (0-10) H 10/08/23 13:45 Troponin T Hi Sens 6Hr Delta -2.41 ng/L (0-12) L 10/08/23 13:45 Total Protein 6.8 g/dL (6.6-8.7) 10/09/23 04:39 Albumin 3.8 g/dL (3.5-5.2) 10/09/23 04:39 Globulin 3.0 g/dL (1.3-4.6) 10/09/23 04:39 Lipase 27 U/L (13-60) 10/08/23 08:07 TSH 4.82 uIU/mL (0.27-4.20) H 10/08/23 08:07 Urine Color Yellow (Yellow) 10/08/23 09:50 Urine Appearance Clear (CLEAR) 10/08/23 09:50 Urine pH 5 (5-7) 10/08/23 09:50 Ur Specific [place] 1.020 (1.005-1.030) 10/08/23 09:50 Urine Protein Neg (Negative) 10/08/23 09:50 Urine Glucose (UA) Norm (Normal) 10/08/23 09:50 Urine Ketones Negative (Negative) 10/08/23 09:50 Urine Blood Neg (Negative) 10/08/23 09:50 Urine Nitrate Negative (Negative) 10/08/23 09:50 Urine Bilirubin Neg (Negative) 10/08/23 09:50 Urine Urobilinogen Norm mg/dL (Negative) 10/08/23 09:50 Ur Leukocyte Esterase Negative (Negative) 10/08/23 09:50 Vitals Last Vital Signs Temp 98.9 F 10/10/23 04:00 Pulse 69 10/10/23 08:20 Resp 16 10/10/23 08:10 BP 116/54 10/10/23 07:13 Pulse Ox 95 10/10/23 08:10 O2 Del Method Nasal Cannula 10/10/23 08:10 O2 Flow Rate 4 10/10/23 08:10 FiO2 40 10/09/23 23:20 Discharge Plan Discharge Patient Disposition: Home Condition: Stable Prescriptions: New amlodipine 10 mg tablet 10 mg PO DAILY Qty: 60 4RF amoxicillin-pot clavulanate 875-125 mg tablet 1 tab PO BID Qty: 10 0RF Continued atorvastatin [Lipitor] 20 mg tablet 20 mg PO BEDTIME amlodipine 10 mg tablet 10 mg PO DAILY hydralazine 50 mg tablet 50 mg PO QID albuterol sulfate 90 mcg/actuation HFA aerosol inhaler 2 puff inhalation Q4H PRN (Reason: Shortness Of Breath) Trelegy Ellipta 100-62.5-25 mcg blister with device 1 inh inhalation DAILY Qty: 60 6RF acetaminophen [Tylenol] 325 mg Tablet 325 mg PO TID hydroxyzine HCl 25 mg tablet 25 mg PO TID PRN (Reason: Anxiety) buspirone 10 mg tablet 10 mg PO BID famotidine 20 mg tablet 20 mg PO BID furosemide 40 mg Tablet 40 mg PO DAILY 30 Days Qty: 30 0RF isosorbide mononitrate 30 mg tablet extended release 24 hr 30 mg PO DAILY insulin glargine-yfgn 100 unit/mL (3 mL) insulin pen 20 unit SUBCUT BEDTIME tramadol 50 mg tablet 50 mg PO DAILY Milk of Magnesia 400 mg/5 mL Suspension 30 ml PO DAILY PRN (Reason: Constipation) levothyroxine 50 mcg tablet 50 mcg PO QAM bisacodyl 10 mg Suppository 10 mg AL DAILY PRN (Reason: Constipation) Fleet Enema 19-7 gram/118 mL Enema 118 ml AL DAILY PRN (Reason: Constipation) Biofreeze 0.2-3.5 % Gel 1 applic TOPICAL TID PRN (Reason: Pain) Rx Instructions: rub in gently and completely magnesium oxide 200 mg magnesium tablet 200 mg PO BID Discontinued losartan 100 mg tablet 100 mg PO DAILY clonidine [Hrzcjxas-ILQ-2] 0.3 mg/24 hr patch weekly 1 patch transdermal Q7D carvedilol 3.125 mg tablet 1.5625 mg PO Q12H 30 Days Qty: 30 0RF spironolactone 50 mg tablet 50 mg PO DAILY Discharge Orders: Discharge Order (Routine); Ordered 10/10/23 Ordered By: Stacey Fowler Referrals: Nazia Jha PA [Primary Care Provider] - Luz Maria Lucio MD [Referring] - 1 week Discharge Diet: Diabetic Patient Instructions: Heart Failure (DC), CHF Stoplight, Opioid Safety Activity Restrictions/Additional Instructions: Please avoid losartan and spironolactone because your creatinine is still 1.4 I have given you referral to see a building services engineer outpatient within a week I have also discontinued her clonidine Avoid Coreg as well because you suffered from decreased heart rate in the hospital For your blood pressure continue hydralazine I have added amlodipine, you can continue your Imdur Discharge Attestations Time Spent in Discharge Care*: greater than 30 min Status at Discharge: Cognitive status at discharge: cognitively intact, Behavioral status at discharge: cooperative, Quality Metrics Clinical Quality Measures [ No reported AMI, CVA or VTE this stay] Coding Level of Care Code Acute Code for Chg Fwd Diagnoses Hypertension I10 Stress-induced cardiomyopathy I51.81 Acute HFrEF (heart failure with reduced ejection fraction) I50.21 Dilated cardiomyopathy I42.0 Cardiomyopathy type: dilated Chronic combined systolic and diastolic congestive heart failure I50.42 Heart failure type: combined systolic and diastolic Opioid contract exists Z79.891 Diabetes E11.9 Morbid obesity E66.01 Acute kidney injury N17.9 Hyperkalemia E87.5 COPD (chronic obstructive pulmonary disease) J44.9 Shortness of breath R06.02 Obesity hypoventilation syndrome E66.2
[2023-10-10] MEDS: heparin 5,000 unit/mL INJ 1 mL 5000 UNIT SUBCUT (09:55)
[2023-10-10] MEDS: BuSPIRONE 10 mg Tablet PO (09:55)
[2023-10-10] MEDS: pantoprazole DR 40 mg Tablet PO (09:55)
[2023-10-10] MEDS: amlodipine 10 mg Tablet PO (09:55)
[2023-10-10] MEDS: isosorbide mononitrate ER 30 mg Tablet PO (09:55)
[2023-10-10] MEDS: TRAMadol 50 mg Tablet PO (10:30)
[2023-10-10 11:22] LABS: Glucose Point of Care 219 mg/dL (70-110)
--- NOTE | 2023-10-10 11:38 | PC.NURSE ---
[employer] has been contacted for a ride back to [facility]. Spoke to [facility] and given trip ID#[id number]
[2023-10-10] MEDS: insulin lispro 100 unit/1 mL SUBCUT (12:02)
--- NOTE | 2023-10-10 12:34 | PC.NURSE ---
Discharge Note Patient discharged to [[facility]] via [[employer] transport ride] accompanied by [[facility] personnel]. Discharge instructions reviewed with patient and/or junior sales representative. Mobile pharmacy medications and/or prescriptions provided. Belongings/home medications returned.
== END 2023-10-10 12:25 | disposition skilled nursing facility (03) | DRG 309 ==
LOC: ER 08:46 → ER IP 11:04 → ICU 13:12 → CSU 10-09 13:14
PROVIDERS: Admitting Provider Internal Medicine; Emergency Provider Family Medicine; PCP Physician Assistant; Visit Provider Internal Medicine
DX: I44.2 Atrioventricular block, complete (principal); E66.2 Morbid (severe) obesity with alveolar hypoventilation; E87.20 Acidosis, unspecified; N17.9 Acute kidney failure, unspecified; K57.92 Diverticulitis of intestine, part unspecified, without perforation or abscess without bleeding; I50.22 Chronic systolic (congestive) heart failure; I42.8 Other cardiomyopathies; Z68.43 Body mass index [BMI] 50.0-59.9, adult; G93.40 Encephalopathy, unspecified; E87.5 Hyperkalemia; Z66 Do not resuscitate; Z99.81 Dependence on supplemental oxygen; Z99.89 Dependence on other enabling machines and devices; Z99.3 Dependence on wheelchair; I80.8 Phlebitis and thrombophlebitis of other sites; Z87.891 Personal history of nicotine dependence; E11.9 Type 2 diabetes mellitus without complications; Z79.4 Long term (current) use of insulin; J44.9 Chronic obstructive pulmonary disease, unspecified; D64.9 Anemia, unspecified; E78.5 Hyperlipidemia, unspecified; I11.0 Hypertensive heart disease with heart failure; I95.9 Hypotension, unspecified
CPT/HCPCS: 36415; 36416; 36600; 51702; 71045; 74176; 80048; 80051; 80053; 81003; 82140; 82330; 82550; 82805; 82962; 83605; 83690; 83735; 84443; 84484; 85025; 87040; 93005; 93971; 94640; 94660; 96365; 96366; 96372; 96375; 96376; 99291; C9113; J1265; J1644; J1815; J2270; J2405; J2543; J3490; J7030; J7040; J7070; J7613; J7626; J7799

== ENCOUNTER → 2023-10-23 09:34 | Outpatient (BNVA) | payer MEDICARE, MEDICAID, SELFPAY | PROVIDERS: PCP Physician Assistant; Visit Provider Internal Medicine Pulmonary Disease | DX: Z09 Encounter for follow-up examination after completed treatment for conditions other than malignant neoplasm (principal); J43.2 Centrilobular emphysema; J96.12 Chronic respiratory failure with hypercapnia; R91.1 Solitary pulmonary nodule; I50.42 Chronic combined systolic (congestive) and diastolic (congestive) heart failure; E66.2 Morbid (severe) obesity with alveolar hypoventilation; Z68.42 Body mass index [BMI] 45.0-49.9, adult | CPT/HCPCS: 99214 ==

== ENCOUNTER 2023-11-10 14:47 | Outpatient (CLI) | payer MEDICARE, MEDICAID, SELFPAY ==
--- NOTE | 2023-11-10 15:00 | CTR_ITS ---
PROCEDURE INFORMATION: Exam: CT Chest Without Contrast; Diagnostic Exam date and time: 11/10/2023 3:26 PM Age: 78 years old Clinical indication: Abnormal findings; Abnormal radiologic exam of lung or chest; Prior surgery; Surgery date: 6+ months; Surgery type: Spinal stimulator; Additional info: To follow up on left upper lobe nodule TECHNIQUE: Imaging protocol: Diagnostic computed tomography of the chest without contrast. Radiation optimization: All CT scans at this facility use at least one of these dose optimization techniques: automated exposure control; mA and/or kV adjustment per patient size (includes targeted exams where dose is matched to clinical indication); or iterative reconstruction. COMPARISON: CT angio chest w abd pel w con 06/26/2023 2:20 PM RADIATION DOSE METRICS: Total DLP (mGy-cm): 635.98 FINDINGS: Lungs: Infiltrate which had been present in the lobe has were. Pleural spaces: Unremarkable. No pneumothorax. No pleural effusion. Heart: Unremarkable. No cardiomegaly. No pericardial effusion. Coronary arteries: Coronary artery calcifications. Lymph nodes: Unremarkable. No enlarged lymph nodes. Vasculature: Unremarkable. No aortic aneurysm. Gallbladder and bile ducts: Cholecystectomy. Bones/joints: Unremarkable. No acute fracture. Soft tissues: Unremarkable. Other findings: Scarring in the medial left apex. CT/CT chest wo con [id number] IMPRESSION: The previous masslike infiltrate has resolved.
== END 2023-11-10 14:48 | disposition home or self-care (01) ==
LOC: RAD 14:48
PROVIDERS: PCP Physician Assistant; Visit Provider Internal Medicine Pulmonary Disease
DX: R91.1 Solitary pulmonary nodule (principal); I25.10 Atherosclerotic heart disease of native coronary artery without angina pectoris
CPT/HCPCS: 71250; 87070; 87077; 87176; 87186; 87205

== ENCOUNTER → 2024-03-21 15:00 | Outpatient (BNVA) | payer MEDICARE, MEDICAID, SELFPAY | PROVIDERS: PCP Physician Assistant; Visit Provider Internal Medicine | DX: I11.0 Hypertensive heart disease with heart failure (principal); I50.42 Chronic combined systolic (congestive) and diastolic (congestive) heart failure; Z79.891 Long term (current) use of opiate analgesic; E11.9 Type 2 diabetes mellitus without complications; J43.2 Centrilobular emphysema; R06.02 Shortness of breath; E66.2 Morbid (severe) obesity with alveolar hypoventilation; I42.0 Dilated cardiomyopathy; Z68.42 Body mass index [BMI] 45.0-49.9, adult | CPT/HCPCS: 99214 ==

== ENCOUNTER 2024-07-17 06:45 | Emergency (ER) | payer MEDICARE, MEDICAID, SELFPAY ==
[2024-07-17] VITALS (11 sets, daily range): BP systolic 185–218; BP diastolic 60–78; PULSE 56–71; RESP 15–22; TEMP 36.8; O2SAT 94–96
--- NOTE | 2024-07-17 06:52 | XRR_ITS ---
PROCEDURE INFORMATION: Exam: XR Chest Exam date and time: 07/17/2024 6:53 AM Age: 79 years old Clinical indication: Shortness of breath; Additional info: SOB TECHNIQUE: Imaging protocol: Radiologic exam of the chest. Views: 1 view. COMPARISON: CT chest con [id number] 11/10/2023 3:26 PM FINDINGS: Tubes, catheters and devices: Spinal cord stimulator tip is at T8 level. Lungs: Unremarkable. No consolidation. Pleural spaces: Unremarkable. No pleural effusion. No pneumothorax. Heart/Mediastinum: The heart is enlarged. Vasculature: Aortic arch calcifications. Bones/joints: Mild degenerative disease of bilateral acromioclavicular joints. There are mild degenerative changes of the glenohumeral joint. XR/XR chest 1V portable [id number] IMPRESSION: No acute cardiopulmonary process.
--- NOTE | 2024-07-17 06:55 | W.ED.SOB ---
HPI - SOB/Dyspnea General: Chief Complaint: Shortness of Breath/Dyspnea Stated Complaint: hypoxia Time Seen by Provider: 07/17/24 06:48 Source: patient and EMS Mode of arrival: EMS Limitations: no limitations History of Present Illness: HPI Narrative: 79-year-old female who has a history of COPD is here from custodial has been having increased cough shortness of breath and wheezing. long term states they have had multiple residents with RSV. She states she is just had increased cough denies any fever they were concerned that take her pulse ox on her finger was in the 60s she does have fingernail [facility] states they put a pulse ox on her ear and it was actually 96%. She is on 3 L here that is what she wears at baseline. She denies any pain anywhere Associated symptoms: Deny abdominal pain, chest pain, fever(s), nausea or vomiting Related Data Home Medications Medication Instructions Recorded Confirmed atorvastatin 20 mg tablet (Lipitor) 20 mg PO BEDTIME 09/30/19 03/21/24 acetaminophen 325 mg tablet 325 mg PO TID Pain 08/22/20 03/21/24 (Tylenol) buspirone 10 mg tablet 10 mg PO BID 12/13/20 03/21/24 famotidine 20 mg tablet 20 mg PO BID 06/26/23 03/21/24 albuterol sulfate 90 mcg/actuation 2 puff inhalation Q4H PRN 08/21/23 03/21/24 aerosol inhaler Shortness Of Breath hydralazine 50 mg tablet 50 mg PO QID 08/21/23 03/21/24 bisacodyl 10 mg rectal suppository 10 mg SD DAILY PRN Constipation 10/08/23 03/21/24 camphor-menthol 0.2 %-3.5 % 1 applic topical TID PRN Pain 10/08/23 12/24/23 topical gel insulin glargine-yfgn 100 unit/mL 20 unit SUBCUT BEDTIME 10/08/23 03/21/24 (3 mL) subcutaneous pen isosorbide mononitrate 30 mg 30 mg PO DAILY 10/08/23 03/21/24 tablet,extended release 24 hr levothyroxine 50 mcg tablet 50 mcg PO QAM 10/08/23 03/21/24 magnesium hydroxide 400 mg/5 mL 30 ml PO DAILY PRN Constipation 10/08/23 03/21/24 oral suspension (Milk of Magnesia) magnesium oxide 200 mg PO BID 10/08/23 03/21/24 sodium phosphates 19 gram-7 118 ml SD DAILY PRN Constipation 10/08/23 03/21/24 gram/118 mL enema (Fleet Enema) tramadol 50 mg tablet 50 mg PO DAILY 10/08/23 03/21/24 dicyclomine 20 mg tablet 20 mg PO 10/27/23 03/21/24 carvedilol 3.125 mg tablet (Coreg) 3.125 mg PO BID 03/21/24 03/21/24 lisinopril 10 mg tablet 10 mg PO DAILY 03/21/24 03/21/24 Previous Rx's Medication Instructions Recorded furosemide 40 mg tablet 40 mg PO DAILY 30 days #30 tabs 07/04/23 fluticasone fur. 100 mcg-umeclid 1 inh inhalation DAILY #60 ea 08/21/23 62.5 mcg-vilant 25 mcg inhalat.powder (Trelegy Ellipta) amlodipine 10 mg tablet 10 mg PO DAILY #60 tabs 10/10/23 Allergies Allergy/AdvReac Type Severity Reaction Status Date / Time No Known Allergies Allergy Verified 03/21/24 15:16 Review of Systems Const: Denies: fever(s), chills or body aches ENMT: Denies: throat pain or dental pain Card: Denies: chest pain Resp: Reports: dyspnea, non-productive cough and wheezing GI: Denies: abdominal pain, nausea, vomiting or diarrhea Musc: Denies: neck pain or back pain Skin/Breast: Denies: rash Neuro: Denies: headache(s) PFSH ED PFSH: Medical History Heart failure with improved ejection fraction (HFimpEF) Bradycardia Hyperkalemia Anemia Acute diverticulitis Heart block AV third degree Obesity hypoventilation syndrome Hyperkalemia Morbid obesity Acute respiratory failure with hypoxia and hypercapnia Shortness of breath Acute kidney injury Chronic CHF (congestive heart failure) Hypokalemia Hypomagnesemia Cardiomyopathy Torsades de pointes Diarrhea Takotsubo cardiomyopathy Gastritis Blood in stool Acute HFrEF (heart failure with reduced ejection fraction) HFrEF (heart failure with reduced ejection fraction) Stress-induced cardiomyopathy Diabetes Hypertension Non-ST elevation NM (NSTEMI) History of cerebrovascular accident COPD (chronic obstructive pulmonary disease) Hypertension Depression with anxiety History of CHF (congestive heart failure) History of GI bleed GERD (gastroesophageal reflux disease) Diabetes CVA (cerebral vascular accident) COPD (chronic obstructive pulmonary disease) Carpal tunnel syndrome on both sides Opioid contract exists Encounter for long-term use of opiate analgesic Chronic radicular low back pain Smokeless tobacco use Low back pain Surgical History History of esophagogastroduodenoscopy (EGD) (~11/2020) History of colonoscopy (~11/2020) H/O knee surgery History of knee replacement History of lumbar surgery Also history of spinal cord stimulator, currently not functioning History of shoulder surgery Family History Other CAD (coronary artery disease) Hypertension Stroke Denies family history of Anesthesia complication Bleeding disorder Social History Smoking and tobacco/nicotine status: former use of tobacco/nicotine Quit status (tobacco/nicotine): has quit using Year quit tobacco: 2012 Former quit date comment: 2ppd X 48 years Alcohol intake: never Substance/Drug Use: never Housing: Custodial Physical Exam Const: COMMON NORMALS: patient oriented x3 HENMT: COMMON NORMALS: normocephalic and atraumatic HEAD & SCALP: normocephalic and atraumatic Eye: COMMON NORMALS: conjunctivae normal CONJUNCTIVA: Yes conjunctivae normal Neck/C-Spine: COMMON NORMALS: full ROM and supple Chest: COMMONS NORMALS: normal inspection of the chest Resp: COMMON NORMALS: No retractions and No use of accessory muscles AUSCULTATION: wheezes Cardio: COMMON NORMALS: regular rate, regular rhythm and No murmurs present (Cardio) RATE: regular rate RHYTHM: regular rhythm GI: COMMON NORMALS: Normal to inspection, nondistended, normoactive bowel sounds present, Soft to palpation, non-tender and no masses PALPATION: Yes Soft to palpation Extremity: COMMON NORMALS: normal to inspection and full ROM Neuro: COMMON NORMALS: patient oriented x3, moves all extremities and no focal motor deficits Psych: COMMON NORMALS: mental status grossly normal, Normal thought process present and cooperative THOUGHT PROCESS: Normal thought process present Skin: COMMON NORMALS: no rashes or lesions noted and no wounds GENERAL SKIN EXAM: no rashes or lesions noted Course Vital Signs: Vital signs: Vital Signs Temperature 98.2 F 07/17/24 06:47 Pulse Rate 61 07/17/24 08:15 Respiratory Rate 22 H 07/17/24 08:15 Blood Pressure 218/75 07/17/24 08:15 Pulse Oximetry 95 07/17/24 08:15 Oxygen Delivery Me thod Nasal Cannula 07/17/24 07:11 Oxygen Flow Rate 3 07/17/24 07:11 MDM - SOB/Dyspnea Medical Decision Making Patient presents here with shortness of breath did test positive for RSV no signs of pneumonia she stable here on her 3 L oxygen will discharge back to the custodial. Medical Records I reviewed the patient's medical records. Lab Data I reviewed the patient's lab results. 07/17/24 07:04 07/17/24 07:04 Labs/Radiology: Radiology Impressions Chest X-Ray 07/17/24 06:52 IMPRESSION: No acute cardiopulmonary process. Laboratory Results WBC 7.98 10^3/uL (3.29-11.43) 07/17/24 07:04 RBC 3.85 10^6/uL (3.85-5.65) 07/17/24 07:04 Hgb 9.60 g/dL (11.27-16.99) L 07/17/24 07:04 Hct 34.0 % (36-47) L 07/17/24 07:04 MCV 88.3 fl (85-98) 07/17/24 07:04 MCH 24.9 pg (27-33) L 07/17/24 07:04 MCHC 28.2 g/dL (30-55) L 07/17/24 07:04 RDW 15.8 % (12.1-15.1) H 07/17/24 07:04 Plt Count 308 10^3/cmm (157-399) 07/17/24 07:04 MPV 9.5 fL (7.4-10.4) 07/17/24 07:04 Neut % (Auto) 69.7 % 07/17/24 07:04 Lymph % (Auto) 15.5 % 07/17/24 07:04 [place] % (Auto) 11.0 % 07/17/24 07:04 Eos % (Auto) 2.1 % 07/17/24 07:04 Baso % (Auto) 0.8 % 07/17/24 07:04 Neut # (Auto) 5.56 10^3/uL (1.8-7.7) 07/17/24 07:04 Lymph # (Auto) 1.2 10^3/uL (0.8-4.8) 07/17/24 07:04 [place] # (Auto) 0.9 10^3/uL (0.2-0.9) 07/17/24 07:04 Eos # (Auto) 0.2 10^3/uL (0.0-0.8) 07/17/24 07:04 Baso # (Auto) 0.1 10^3/uL (0.0-0.1) 07/17/24 07:04 Nucleated RBC % (auto) 0 % 07/17/24 07:04 Nucleated RBCs # 0.0 /100WBC 07/17/24 07:04 Sodium 143 mmol/L (136-145) 07/17/24 07:04 Potassium 4.6 mmol/L (3.5-5.1) 07/17/24 07:04 Chloride 101 mmol/L (98-107) 07/17/24 07:04 Carbon Dioxide 33 mmol/L (22-29) H 07/17/24 07:04 Anion Gap 13.6 (5-19) 07/17/24 07:04 BUN 26 mg/dL (8-23) H 07/17/24 07:04 Creatinine 0.8 mg/dL (0.5-0.9) 07/17/24 07:04 GFR Calculation Not Reportable 07/17/24 07:04 Glucose 131 mg/dL (65-115) H 07/17/24 07:04 Calculated Osmolality 303 mOsm/kg (285-295) H 07/17/24 07:04 Calcium 9.7 mg/dL (8.5-10.5) 07/17/24 07:04 Total Bilirubin 0.4 mg/dL (0.15-1.2) 07/17/24 07:04 AST 11 U/L (0-32) 07/17/24 07:04 ALT 11 U/L (0-33) 07/17/24 07:04 Alkaline Phosphatase 89 U/L (35-105) 07/17/24 07:04 NT-Pro-B Natriuret Pep 356 pg/mL (0-450) 07/17/24 07:04 Total Protein 7.3 g/dL (6.6-8.7) 07/17/24 07:04 Albumin 3.9 g/dL (3.5-5.2) 07/17/24 07:04 Globulin 3.4 g/dL (1.3-4.6) 07/17/24 07:04 Coronavirus (PCR) Negative (Negative) 07/17/24 07:12 Influenza A (PCR) Negative (Negative) 07/17/24 07:12 Influenza Type B (PCR) Negative (Negative) 07/17/24 07:12 RSV (PCR) Positive (Negative) 07/17/24 07:12 All radiology interpretation(s) finalized by discharge Discharge Plan Discharge Patient Disposition: Home Clinical Impression: RSV (respiratory syncytial virus infection) Condition: Stable Prescriptions: No Action atorvastatin [Lipitor] 20 mg tablet 20 mg PO BEDTIME hydralazine 50 mg tablet 50 mg PO QID albuterol sulfate 90 mcg/actuation HFA aerosol inhaler 2 puff inhalation Q4H PRN (Reason: Shortness Of Breath) Trelegy Ellipta 100-62.5-25 mcg blister with device 1 inh inhalation DAILY Qty: 60 6RF carvedilol [Coreg] 3.125 mg tablet 3.125 mg PO BID Rx Instructions: must administer with a meal/food lisinopril 10 mg tablet 10 mg PO DAILY lidocaine HCl [Lidocaine Viscous] 2 % solution 1 applic topical ONCE Qty: 1 0RF dicyclomine 20 mg tablet 20 mg PO lidocaine HCl [Lidocaine Viscous] 2 % solution 1 applic topical ONCE Qty: 1 0RF lidocaine HCl [Lidocaine Viscous] 2 % solution 1 applic topical ONCE Qty: 1 0RF lidocaine HCl [Lidocaine Viscous] 2 % solution 1 applic topical ONCE Qty: 1 0RF lidocaine HCl [Lidocaine Viscous] 2 % solution 1 applic topical ONCE Qty: 1 0RF lidocaine HCl [Lidocaine Viscous] 2 % solution 1 applic topical ONCE Qty: 1 0RF lidocaine HCl [Lidocaine Viscous] 2 % solution 1 applic topical ONCE Qty: 1 0RF acetaminophen [Tylenol] 325 mg Tablet 325 mg PO TID buspirone 10 mg tablet 10 mg PO BID famotidine 20 mg tablet 20 mg PO BID furosemide 40 mg Tablet 40 mg PO DAILY 30 Days Qty: 30 0RF isosorbide mononitrate 30 mg tablet extended release 24 hr 30 mg PO DAILY insulin glargine-yfgn 100 unit/mL (3 mL) insulin pen 20 unit SUBCUT BEDTIME tramadol 50 mg tablet 50 mg PO DAILY Milk of Magnesia 400 mg/5 mL Suspension 30 ml PO DAILY PRN (Reason: Constipation) levothyroxine 50 mcg tablet 50 mcg PO QAM bisacodyl 10 mg Suppository 10 mg SD DAILY PRN (Reason: Constipation) Fleet Enema 19-7 gram/118 mL Enema 118 ml SD DAILY PRN (Reason: Constipation) camphor-menthol 0.2-3.5 % Gel 1 applic TOPICAL TID PRN (Reason: Pain) Rx Instructions: rub in gently and completely magnesium oxide 200 mg magnesium tablet 200 mg PO BID amlodipine 10 mg tablet 10 mg PO DAILY Qty: 60 4RF Discharge Orders: Discharge ED (Routine); Ordered 07/17/24 Ordered By: Arcelia Quinn Referrals: Nazia Jha PA [Primary Care Provider] - Discharge Diet: Advance as tolerated Discharge Activity: Resume usual activity Patient Instructions: RSV (Respiratory Syncytial Virus) Infection (ED) Coding Level of Care Code ED Community Living Instructor for [facility]
[2024-07-17] MEDS: ipratropium-albuterol 3 mL Neb INHALATION (07:08)
[2024-07-17 07:10] LABS: Basophils # 0.1 10^3/uL (0.0-0.1); Basophils % 0.8 %; Eosinophils # 0.2 10^3/uL (0.0-0.8); Eosinophils % 2.1 %; Lymphocytes # 1.2 10^3/uL (0.8-4.8); Lymphocytes % 15.5 %; Mean Corpuscular HGB Conc 28.2 g/dL (30-55); Mean Corpuscular Hemoglobin 24.9 pg (27-33); Mean Corpuscular Volume 88.3 fl (85-98); Mean Platelet Volume 9.5 fL (7.4-10.4); Monocytes # 0.9 10^3/uL (0.2-0.9); Neutrophils # 5.56 10^3/uL (1.8-7.7); Neutrophils % 69.7 %; Nucleated Red Blood Cells % 0 %; Platelet Count 308 10^3/cmm (157-399); Red Blood Count 3.85 10^6/uL (3.85-5.65); Red Cell Distribution Width 15.8 % (12.1-15.1); White Blood Count 7.98 10^3/uL (3.29-11.43)
[2024-07-17] MEDS: dexamethasone 10 mg/mL INJ IVP (07:34)
[2024-07-17 07:39] LABS: Alanine Aminotransferase 11 U/L (0-33); Albumin Level 3.9 g/dL (3.5-5.2); Alkaline Phosphatase 89 U/L (35-105); Anion Gap 13.6 (5-19); Aspartate Amino Transferase 11 U/L (0-32); Blood Urea Nitrogen 26 mg/dL (8-23); Calcium 9.7 mg/dL (8.5-10.5); Carbon Dioxide 33 mmol/L (22-29); Chloride 101 mmol/L (98-107); Creatinine Clr Calc Pharmacy 97.8338; Globulin 3.4 g/dL (1.3-4.6); Glucose 131 mg/dL (65-115); NT Pro B Type Natriuretic Pept 356 pg/mL (0-450); Osmolality Calculated 303 mOsm/kg (285-295); Potassium 4.6 mmol/L (3.5-5.1); Sodium 143 mmol/L (136-145); Total Bilirubin 0.4 mg/dL (0.15-1.2); Total Protein 7.3 g/dL (6.6-8.7)
[2024-07-17 08:11] LABS: Covid PCR NEGATIVE (Negative); Influenza A NEGATIVE (Negative); Influenza B NEGATIVE (Negative); Respiratory Syncytial Virus Ce POSITIVE (Negative)
[2024-07-17] MEDS: hyDRALAzine 20 mg/mL INJ 1 mL 10 MG IVP (08:38)
== END 2024-07-17 10:22 | disposition home or self-care (01) ==
PROVIDERS: Emergency Provider Emergency Medicine; PCP Physician Assistant
DX: J06.9 Acute upper respiratory infection, unspecified (principal); B97.4 Respiratory syncytial virus as the cause of diseases classified elsewhere; Z79.4 Long term (current) use of insulin; Z87.891 Personal history of nicotine dependence; Z86.73 Personal history of transient ischemic attack (TIA), and cerebral infarction without residual deficits; E11.9 Type 2 diabetes mellitus without complications; I11.0 Hypertensive heart disease with heart failure; I50.20 Unspecified systolic (congestive) heart failure; J44.9 Chronic obstructive pulmonary disease, unspecified; Z11.52 Encounter for screening for COVID-19
CPT/HCPCS: 0241U; 36415; 71045; 80053; 83880; 85025; 94640; 96374; 96375; 99284; J0360; J1100

== ENCOUNTER 2024-10-23 16:33 | Observation (INO) | payer MEDICARE, MEDICAID, SELFPAY ==
[2024-10-23] VITALS (8 sets, daily range): BP systolic 128–189; BP diastolic 53–85; PULSE 57–64; RESP 16–22; TEMP 36.8–36.9; O2SAT 91–94; BMI 46.5
--- NOTE | 2024-10-23 16:36 | W.ED.SOB ---
HPI - SOB/Dyspnea General: Chief Complaint: Shortness of Breath/Dyspnea Stated Complaint: sob Time Seen by Provider: 10/23/24 16:34 History of Present Illness: HPI Narrative: 79-year-old female presents the emergency department [facility]. Patient was experiencing malaise and was found to have hypoxia. She does have chronic hypoxic respiratory failure and uses oxygen as needed. She also has sleep apnea and uses a BiPAP from time to time (it is prescribed nightly). She does have a history of COPD and is on maintenance medication as well as albuterol as needed. Patient also suffers from congestive heart failure with reduced ejection fraction. Patient denies any fever or chills. She does have a cough and wheezing. The cough is nonproductive and infrequent. Patient also reported visual hallucinations. When asked about her hallucinations, she states she sees old women in skirts and an old man with red hair. She has been experiencing visual hallucinations for a long time . She reports there is nothing changed about it. She is oriented to the year, to the month, and conversational here in the emergency department. She denies any chest pain. She does report chronic bilateral lower extremity pain and it appears that she has edema there. No known history of DVT or PE according to records. Patient's abdomen is extremely obese and distended. It is unclear whether this is baseline or not. She says from time to time she has abdominal pain. She is not reporting any acute abdominal pain vomiting or diarrhea. Associated symptoms: Deny chest pain, fever(s), nausea, syncope or vomiting Related Data Home Medications ?Medication ?Instructions ?Recorded ?Confirmed atorvastatin 20 mg tablet (Lipitor) 20 mg PO BEDTIME 09/30/19 03/21/24 acetaminophen 325 mg tablet 325 mg PO TID Pain 08/22/20 03/21/24 (Tylenol) buspirone 10 mg tablet 10 mg PO BID 12/13/20 03/21/24 famotidine 20 mg tablet 20 mg PO BID 06/26/23 03/21/24 albuterol sulfate 90 mcg/actuation 2 puff inhalation Q4H PRN 08/21/23 03/21/24 aerosol inhaler Shortness Of Breath hydralazine 50 mg tablet 50 mg PO QID 08/21/23 03/21/24 bisacodyl 10 mg rectal suppository 10 mg IL DAILY PRN Constipation 10/08/23 03/21/24 camphor-menthol 0.2 %-3.5 % 1 applic topical TID PRN Pain 10/08/23 12/24/23 topical gel insulin glargine-yfgn 100 unit/mL 20 unit SUBCUT BEDTIME 10/08/23 03/21/24 (3 mL) subcutaneous pen isosorbide mononitrate 30 mg 30 mg PO DAILY 10/08/23 03/21/24 tablet,extended release 24 hr levothyroxine 50 mcg tablet 50 mcg PO QAM 10/08/23 03/21/24 magnesium hydroxide 400 mg/5 mL 30 ml PO DAILY PRN Constipation 10/08/23 03/21/24 oral suspension (Milk of Magnesia) magnesium oxide 200 mg PO BID 10/08/23 03/21/24 sodium phosphates 19 gram-7 118 ml [place] DAILY PRN Constipation 10/08/23 03/21/24 gram/118 mL enema (Fleet Enema) tramadol 50 mg tablet 50 mg PO DAILY 10/08/23 03/21/24 dicyclomine 20 mg tablet 20 mg PO 10/27/23 03/21/24 carvedilol 3.125 mg tablet (Coreg) 3.125 mg PO BID 03/21/24 03/21/24 lisinopril 10 mg tablet 10 mg PO DAILY 03/21/24 03/21/24 Previous Rx's ?Medication ?Instructions ?Recorded furosemide 40 mg tablet 40 mg PO DAILY 30 days #30 tabs 07/04/23 fluticasone fur. 100 mcg-umeclid 1 inh inhalation DAILY #60 ea 08/21/23 62.5 mcg-vilant 25 mcg inhalat.powder (Trelegy Ellipta) amlodipine 10 mg tablet 10 mg PO DAILY #60 tabs 10/10/23 Allergies Allergy/AdvReac Type Severity Reaction Status Date / Time No Known Allergies Allergy Verified 10/23/24 16:50 Review of Systems General: Reports: 10 or more systems reviewed and unremarkable except in HPI and below Const: Denies: fever(s), chills or body aches Eyes: Denies: change in vision ENMT: Denies: throat pain Card: Denies: chest pain or syncope Resp: Denies: productive cough GI: Denies: nausea, vomiting or diarrhea : Denies: flank pain, dysuria or urinary frequency Musc: Denies: neck pain or back pain Skin/Breast: Denies: rash or erythema Neuro: Denies: headache(s), numbness in extremities, weakness in extremities, lack of coordination or difficulty walking Psych: Reports: visual hallucinations PFSH ED PFSH: Medical History Heart failure with improved ejection fraction (HFimpEF) Bradycardia Hyperkalemia Anemia Acute diverticulitis Heart block AV third degree Obesity hypoventilation syndrome Hyperkalemia Morbid obesity Acute respiratory failure with hypoxia and hypercapnia Shortness of breath Acute kidney injury Chronic CHF (congestive heart failure) Hypokalemia Hypomagnesemia Cardiomyopathy Torsades de pointes Diarrhea Takotsubo cardiomyopathy Gastritis Blood in stool Acute HFrEF (heart failure with reduced ejection fraction) HFrEF (heart failure with reduced ejection fraction) Stress-induced cardiomyopathy Diabetes Hypertension Non-ST elevation [place] (NSTEMI) History of cerebrovascular accident COPD (chronic obstructive pulmonary disease) Hypertension Depression with anxiety History of CHF (congestive heart failure) History of GI bleed GERD (gastroesophageal reflux disease) Diabetes CVA (cerebral vascular accident) COPD (chronic obstructive pulmonary disease) Carpal tunnel syndrome on both sides Opioid contract exists Encounter for long-term use of opiate analgesic Chronic radicular low back pain Smokeless tobacco use Low back pain Surgical History History of esophagogastroduodenoscopy (EGD) (~11/2020) History of colonoscopy (~11/2020) H/O knee surgery History of knee replacement History of lumbar surgery Also history of spinal cord stimulator, currently not functioning History of shoulder surgery Family History Other CAD (coronary artery disease) Hypertension Stroke Denies family history of Anesthesia complication Bleeding disorder Social History Smoking and tobacco/nicotine status: former use of tobacco/nicotine Quit status (tobacco/nicotine): has quit using Year quit tobacco: 2012 Former quit date comment: 2ppd X 48 years Alcohol intake: never Substance/Drug Use: never Housing: Half-Way Female Reproductive History: Date of last menstrual period: 11/13/20 Physical Exam Const: COMMON NORMALS: alert; negative for average body habitus (significant abd obesity) and negative for healthy appearing EXAM LIMITATIONS: no altered mental status HENMT: COMMON NORMALS: normocephalic, atraumatic and external ears normal HEAD & SCALP: normocephalic and atraumatic EXTERNAL EAR: Yes external ears normal MOUTH: no muffled voice Eye: COMMON NORMALS: EOMs intact bilaterally, conjunctivae normal and no scleral icterus CONJUNCTIVA: Yes conjunctivae normal Neck/C-Spine: COMMON NORMALS: full ROM GENERAL: Yes normal visual inspection and Yes trachea midline Resp: OTHER: Use of accessory muscles, mild tachypnea, prefers to sit upright, abdomen is distended and pushing into the diaphragm and chest, wheezes, slightly prolonged expiratory phase, some rhonchi present. Cardio: COMMON NORMALS: regular rate RATE: regular rate HEART SOUNDS: Murmur heart sound present PERIPHERAL PULSES: radial pulses present GI: COMMON NORMALS: Soft to palpation and non-tender PALPATION: Yes Soft to palpation and No Guarding due to palpation present (GI) Extremity: NARRATIVE EXTREMITY EXAM: Some nonpitting edema of bilateral lower extremities Neuro: COMMON NORMALS: moves all extremities, no focal motor deficits and no sensory deficits noted SENSORIUM/ORIENTATION: Yes alert SPEECH: speech normal Psych: COMMON NORMALS: mental status grossly normal, Normal thought process present, cooperative, normal affect and speech normal ACTIVITY/MOTOR BEHAVIOR: Yes appropriate eye contact and No psychomotor agitation SPEECH: Yes normal speech THOUGHT PROCESS: Normal thought process present OTHER: Patient reports she has had visual hallucinations for quite a long time. Most of the time she believes that they are hallucinations. Sometimes however, she is not exactly sure. These are unchanged. Skin: COMMON NORMALS: turgor normal and no jaundice GENERAL SKIN EXAM: turgor normal and other (Mild erythema over the shins bilaterally) Course Vital Signs: Vital signs: Vital Signs Temperature 98.4 F 10/23/24 16:34 Pulse Rate 64 10/23/24 19:30 Respiratory Rate 16 10/23/24 19:02 Blood Pressure 128/69 10/23/24 19:02 Pulse Oximetry 91 10/23/24 19:30 Oxygen Delivery Me thod Nasal Cannula 10/23/24 19:30 Oxygen Flow Rate 4 10/23/24 19:30 MDM - SOB/Dyspnea Medical Decision Making Patient presents for wheezing and hypoxia. She has known COPD, chronic hypoxic respiratory failure, GOPI, obesity hypoventilation syndrome, and CHF with reduced ejection fraction and grade 2 diastolic dysfunction. She does have wheezing and some rhonchi. Her abdomen is pushing up into her diaphragm what appears to be causing her to have more labored breathing. Unsure how chronic this is. The abdomen is soft. It is moderately tympanitic to percussion. She has some guarding of the abdomen but with palpation during distraction is unremarkable. There is nonpitting edema of the lower extremities. No asymmetry of the extremities. Hallucinations sounds like they are chronic. Unclear etiology. Patient answered her orientation questions normally including her name, month, location, why she is here, year. Differential diagnosis includes CHF exacerbation, COPD exacerbation, pneumonia, viral syndrome, UTI, anemia, pericardial effusion, pulmonary embolism, obesity hypoventilation syndrome, pulmonary hypertension, renal failure, multiple others. EKG obtained at 1639 EP interpretation. Sinus rhythm0 suspected. Rate 61. Cylinder within normal limits. QRS is widened with a left bundle branch block pattern. No concerning discordant or concordant ST changes. Update: WBC elevated to ~12k Chronic anemia Cr 1.0, mild elevated k at 5.5 Bicarb elevated (chronic hypercapnea?) Family arrived. Daughter and grandson state that the hallucinations actually started today. They state that she is always on 3 L at the intermediate. She is currently on 5 L satting 94%. Chest x-ray here showed pretty clear lung palomo except for in the retrocardiac area. Radiologist suspects there may be a retrocardiac infiltrate on the report. Since the patient has cough, shortness of breath, increased oxygen demand, elevated white blood cell count we are going to treat this as pneumonia. She has not been hospitalized nor been on antibiotics in the last 3 months according to her family. I am going to obtain a VBG because it sounds like she does not always use her BiPAP. Patient still has some wheezing and I am going to give her a DuoNeb. Pt did not meets SIRS criteria. WBC<12k, RR<20, <10% bands, HR<90, etc. Blood cultures/lactic not obtained. Medical Records I reviewed the patient's medical records. Lab Data I reviewed the patient's lab results. 10/23/24 17:03 10/23/24 17:03 Labs/Radiology: Radiology Impressions Chest X-Ray 10/23/24 16:43 IMPRESSION: Dense left retrocardiac opacity, more pronounced in comparison to prior study. Findings may represent increasing atelectasis, however underlying focal consolidation can not be excluded. KUB X-Ray 10/23/24 16:47 IMPRESSION: Relative paucity of intra-abdominal gas with no dilated loops of small bowel identified. Laboratory Results WBC 11.68 10^3/uL (3.29-11.43) H 10/23/24 17:03 RBC 3.87 10^6/uL (3.85-5.65) 10/23/24 17:03 Hgb 10.00 g/dL (11.27-16.99) L 10/23/24 17:03 Hct 34.1 % (36-47) L 10/23/24 17:03 MCV 88.1 fl (85-98) 10/23/24 17:03 MCH 25.8 pg (27-33) L 10/23/24 17:03 MCHC 29.3 g/dL (30-55) L 10/23/24 17:03 RDW 16.2 % (12.1-15.1) H 10/23/24 17:03 Plt Count 353 10^3/cmm (157-399) 10/23/24 17:03 MPV 9.0 fL (7.4-10.4) 10/23/24 17:03 Neut % (Auto) 65.5 % 10/23/24 17:03 Lymph % (Auto) 20.8 % 10/23/24 17:03 [place] % (Auto) 8.9 % 10/23/24 17:03 Eos % (Auto) 1.9 % 10/23/24 17:03 Baso % (Auto) 0.6 % 10/23/24 17:03 Neut # (Auto) 7.65 10^3/uL (1.8-7.7) 10/23/24 17:03 Lymph # (Auto) 2.4 10^3/uL (0.8-4.8) 10/23/24 17:03 [place] # (Auto) 1.0 10^3/uL (0.2-0.9) H 10/23/24 17:03 Eos # (Auto) 0.2 10^3/uL (0.0-0.8) 10/23/24 17:03 Baso # (Auto) 0.1 10^3/uL (0.0-0.1) 10/23/24 17:03 Nucleated RBC % (auto) 0.2 % 10/23/24 17:03 Nucleated RBCs # 0.0 /100WBC 10/23/24 17:03 D-Dimer 0.33 ug/mLFEU (0-0.59) 10/23/24 17:03 Sodium 142 mmol/L (136-145) 10/23/24 17:03 Potassium 5.5 mmol/L (3.5-5.1) H 10/23/24 17:03 Chloride 96 mmol/L (98-107) L 10/23/24 17:03 Carbon Dioxide 36 mmol/L (22-29) H 10/23/24 17:03 Anion Gap 15.5 (5-19) 10/23/24 17:03 BUN 37 mg/dL (8-23) H 10/23/24 17:03 Creatinine 1.0 mg/dL (0.5-0.9) H 10/23/24 17:03 GFR Calculation Not Reportable 10/23/24 17:03 Glucose 146 mg/dL (65-115) H 10/23/24 17:03 Calculated Osmolality 305 mOsm/kg (285-295) H 10/23/24 17:03 Calcium 9.8 mg/dL (8.5-10.5) 10/23/24 17:03 Total Bilirubin 0.3 mg/dL (0.15-1.2) 10/23/24 17:03 AST 12 U/L (0-32) 10/23/24 17:03 ALT 11 U/L (0-33) 10/23/24 17:03 Alkaline Phosphatase 86 U/L (35-105) 10/23/24 17:03 Troponin T Baseline 26 ng/L (0-10) H 10/23/24 17:03 Troponin T 120 Minute 25.62 ng/L (0-10) H 10/23/24 18:53 Delta Troponin T -0.38 ABS# (0-10) L 10/23/24 18:53 NT-Pro-B Natriuret Pep 411 pg/mL (0-450) 10/23/24 17:03 Total Protein 7.2 g/dL (6.6-8.7) 10/23/24 17:03 Albumin 4.2 g/dL (3.5-5.2) 10/23/24 17:03 Globulin 3.0 g/dL (1.3-4.6) 10/23/24 17:03 Urine Color Yellow (Yellow) 10/23/24 17:00 Urine Appearance Clear (CLEAR) 10/23/24 17:00 Urine pH 5.0 (5-7) 10/23/24 17:00 Ur Specific [place] 1.017 (1.005-1.030) 10/23/24 17:00 Urine Protein Trace (Negative) A 10/23/24 17:00 Urine Glucose (UA) Negative (Normal) 10/23/24 17:00 Urine Ketones Negative (Negative) 10/23/24 17:00 Urine Blood Negative (Negative) 10/23/24 17:00 Urine Nitrate Negative (Negative) 10/23/24 17:00 Urine Bilirubin Negative (Negative) 10/23/24 17:00 Urine Urobilinogen 0.2 mg/dL (Negative) 10/23/24 17:00 Ur Leukocyte Esterase Negative (Negative) 10/23/24 17:00 Urine RBC 0-2 /hpf (0-2) 10/23/24 17:00 Urine WBC 0-5 /hpf (0-5) 10/23/24 17:00 Ur Squamous Epith Cells 0-5 /hpf (0-5) 10/23/24 17:00 Amorphous Sediment Not Reportable 10/23/24 17:00 Urine Bacteria None seen /hpf (NONE) 10/23/24 17:00 Hyaline Casts 11.16 /lpf 10/23/24 17:00 Influenza A (PCR) Negative (Negative) 10/23/24 17:05 Influenza Type B (PCR) Negative (Negative) 10/23/24 17:05 RSV (PCR) Negative (Negative) 10/23/24 17:05 SARS-CoV-2 (PCR) Negative (Negative) 10/23/24 17:05 Imaging Data KUB: My impression: No evidence of bowel obstruction on KUB All radiology interpretation(s) finalized by discharge Discharge Plan Discharge Patient Disposition: Admitted As Inpatient Clinical Impression: Acute and chronic respiratory failure with hypoxia, Community acquired pneumonia, Hallucination, visual Condition: Stable Prescriptions: No Action atorvastatin [Lipitor] 20 mg tablet 20 mg PO BEDTIME hydralazine 50 mg tablet 50 mg PO QID albuterol sulfate 90 mcg/actuation HFA aerosol inhaler 2 puff inhalation Q4H PRN (Reason: Shortness Of Breath) Trelegy Ellipta 100-62.5-25 mcg blister with device 1 inh inhalation DAILY Qty: 60 6RF carvedilol [Coreg] 3.125 mg tablet 3.125 mg PO BID Rx Instructions: must administer with a meal/food lisinopril 10 mg tablet 10 mg PO DAILY dicyclomine 20 mg tablet 20 mg PO acetaminophen [Tylenol] 325 mg Tablet 325 mg PO TID buspirone 10 mg tablet 10 mg PO BID famotidine 20 mg tablet 20 mg PO BID furosemide 40 mg Tablet 40 mg PO DAILY 30 Days Qty: 30 0RF isosorbide mononitrate 30 mg tablet extended release 24 hr 30 mg PO DAILY insulin glargine-yfgn 100 unit/mL (3 mL) insulin pen 20 unit SUBCUT BEDTIME tramadol 50 mg tablet 50 mg PO DAILY Milk of Magnesia 400 mg/5 mL Suspension 30 ml PO DAILY PRN (Reason: Constipation) levothyroxine 50 mcg tablet 50 mcg PO QAM bisacodyl 10 mg Suppository 10 mg IL DAILY PRN (Reason: Constipation) Fleet Enema 19-7 gram/118 mL Enema 118 ml IL DAILY PRN (Reason: Constipation) camphor-menthol 0.2-3.5 % Gel 1 applic TOPICAL TID PRN (Reason: Pain) Rx Instructions: rub in gently and completely magnesium oxide 200 mg magnesium tablet 200 mg PO BID amlodipine 10 mg tablet 10 mg PO DAILY Qty: 60 4RF Referrals: Nazia Jha PA [Primary Care Provider] - Print Language: Stateless Coding Level of Care Code 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
--- NOTE | 2024-10-23 16:39 | ECG_ITS ---
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 Measurements Intervals [place] Rate: 61 P: -29 MT: 195 QRS: 8 QRSD: 141 T: 65 QT: 405 QTc: 408 Interpretive Statements SINUS RHYTHM LEFT BUNDLE BRANCH BLOCK [120+ ms QRS DURATION, 80+ ms Q/S IN V1/V2, 85+ ms R IN I/aVL/V5/V6] Compared to ECG 10/08/2023 10:42:12 Left bundle-branch block now present Ectopic atrial rhythm no longer present Intraventricular conduction delay no longer present T-wave abnormality no longer present Electronically Signed On 10-23-2024 22:40:31 CDT by Talon Salguero M.D. [email or web address] [id number]
--- NOTE | 2024-10-23 16:43 | XRR_ITS ---
PROCEDURE INFORMATION: Exam: XR Chest Exam date and time: 10/23/2024 5:05 PM Age: 79 years old Clinical indication: Dyspnea and wheezing; Prior surgery; Surgery date: 6+ months; Surgery type: Bone stimulator; Additional info: Dyspnea, chf, wheezing TECHNIQUE: Imaging protocol: Radiologic exam of the chest. Views: 1 view. COMPARISON: CR XR chest 1V portable [id number] 07/17/2024 6:53 AM FINDINGS: Tubes, catheters and devices: Spinal cord stimulator terminating at T8 level. Lungs: Dense left retrocardiac opacity. Pleural spaces: Unremarkable. No pleural effusion. No pneumothorax. Heart/Mediastinum: Cardiomegaly. Bones/joints: Unremarkable. XR/XR chest 1V portable [id number] IMPRESSION: Dense left retrocardiac opacity, more pronounced in comparison to prior study. Findings may represent increasing atelectasis, however underlying focal consolidation can not be excluded.
--- NOTE | 2024-10-23 16:47 | XRR_ITS ---
PROCEDURE INFORMATION: Exam: XR Abdomen Exam date and time: 10/23/2024 5:05 PM Age: 79 years old Clinical indication: Bloating; Prior surgery; Surgery date: 6+ months; Surgery type: Bone stimulator, gallbladder; Additional info: Abd distention; Please do upright, please do upright kub to screen for bowel obstruction (air TECHNIQUE: Imaging protocol: Radiologic exam of the abdomen. Views: Frontal supine view of the abdomen. 1 View. COMPARISON: CT abdomen pelvis wo con [id number] 10/08/2023 9:34 AM FINDINGS: Gastrointestinal tract: No dilated loops of bowel are visualized within included abdomen. There is relative paucity of intra-abdominal gas. Bones/joints: Unremarkable. XR/XR KUB portable [id number] IMPRESSION: Relative paucity of intra-abdominal gas with no dilated loops of small bowel identified.
[2024-10-23 17:12] LABS: Basophils # 0.1 10^3/uL (0.0-0.1); Basophils % 0.6 %; Eosinophils # 0.2 10^3/uL (0.0-0.8); Eosinophils % 1.9 %; Hematocrit 34.1 % (36-47); Lymphocytes # 2.4 10^3/uL (0.8-4.8); Lymphocytes % 20.8 %; Mean Corpuscular HGB Conc 29.3 g/dL (30-55); Mean Corpuscular Hemoglobin 25.8 pg (27-33); Mean Corpuscular Volume 88.1 fl (85-98); Monocytes % 8.9 %; Neutrophils # 7.65 10^3/uL (1.8-7.7); Neutrophils % 65.5 %; Nucleated Red Blood Cells % 0.2 %; Platelet Count 353 10^3/cmm (157-399); Red Blood Count 3.87 10^6/uL (3.85-5.65); Red Cell Distribution Width 16.2 % (12.1-15.1); White Blood Count 11.68 10^3/uL (3.29-11.43)
[2024-10-23 17:16] LABS: Bilirubin Urine Negative (Negative); Blood Urine Negative (Negative); Glucose Urine UA Negative (Normal); Ketones Urine Negative (Negative); Leukocyte Esterase Urine Negative (Negative); Nitrate Urine Negative (Negative); Protein Urine Trace (Negative); Specific Gravity, Urine 1.017 (1.005-1.030); Urine Appearance Clear (CLEAR); Urine Color Yellow (Yellow); Urobilinogen Urine 0.2 mg/dL (Negative)
[2024-10-23] MEDS: FUROsemide 10 mg/mL SDV 4mL 40 MG IVP (17:16)
[2024-10-23 17:21] LABS: Add Urine Microscopic? YES; Bacteria Urine None Seen /hpf; Hyaline Casts Urine 11.16 /lpf; RBC Urine 0-2 /hpf (0-2); Squamous Epithelial Cell Urine 0-5 /hpf (0-5); WBC Urine 0-5 /hpf (0-5)
[2024-10-23 17:26] LABS: D Dimer 0.33 ug/mLFEU (0-0.59)
[2024-10-23 17:29] LABS: Troponin(5th) Baseline 26 ng/L (0-10)
[2024-10-23 17:33] LABS: Alanine Aminotransferase 11 U/L (0-33); Albumin Level 4.2 g/dL (3.5-5.2); Alkaline Phosphatase 86 U/L (35-105); Blood Urea Nitrogen 37 mg/dL (8-23); Calcium 9.8 mg/dL (8.5-10.5); Carbon Dioxide 36 mmol/L (22-29); Chloride 96 mmol/L (98-107); Glucose 146 mg/dL (65-115); Osmolality Calculated 305 mOsm/kg (285-295); Sodium 142 mmol/L (136-145); Total Bilirubin 0.3 mg/dL (0.15-1.2); Total Protein 7.2 g/dL (6.6-8.7)
[2024-10-23 17:34] LABS: Anion Gap 15.5 (5-19); Aspartate Amino Transferase 12 U/L (0-32); Potassium 5.5 mmol/L (3.5-5.1)
[2024-10-23 17:35] LABS: UA Slide Review UA Slide Review Perf
[2024-10-23 17:37] LABS: NT Pro B Type Natriuretic Pept 411 pg/mL (0-450)
[2024-10-23 17:54] LABS: Influenza A NEGATIVE (Negative); Influenza B NEGATIVE (Negative); Respiratory Syncytial Virus Ce NEGATIVE (Negative); SARS-CoV-2 PCR NEGATIVE (Negative)
--- NOTE | 2024-10-23 19:07 | ECG_ITS ---
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 Measurements Intervals [place] Rate: 58 P: -71 [place]: 149 QRS: 17 QRSD: 118 T: 76 QT: 421 QTc: 414 Interpretive Statements ECTOPIC ATRIAL BRADYCARDIA MODERATE INTRAVENTRICULAR CONDUCTION DELAY [105+ ms QRS DURATION, 80+ ms Q/S IN V1/V2, NO Q AND 60+ ms R IN I/aVL/V5/V6] Compared to ECG 10/23/2024 16:39:07 Bradycardia, nonsinus now present Intraventricular conduction delay now present Sinus rhythm no longer present Left bundle-branch block no longer present Electronically Signed On 10-23-2024 22:48:34 CDT by Talon Salguero M.D. [email or web address] [id number]
[2024-10-23 19:23] LABS: Troponin 5 2HR 25.62 ng/L (0-10)
[2024-10-23 19:26] LABS: Troponin 5 2HR Delta -0.38 ABS# (0-10)
[2024-10-23] MEDS: ipratropium-albuterol 3 mL Neb INHALATION (20:00)
[2024-10-23] MEDS: cefTRIAXone 2,000 mg SDV 2000 MG IVP (20:04)
[2024-10-23] MEDS: azithromycin 500 MG in sodium chloride 0.9% 250 ML 250 MG IV (20:22)
--- NOTE | 2024-10-23 20:31 | PM.HP ---
Providers/Chief Complaint Primary Care Provider: Nazia Jha Chief Complaint: sob History of Present Illness Lauren Jose is a 79 year old female of COPD, chronic oxygen needs with 3 L and BiPAP at night, diabetes, hypertension, was diagnosed with CHF with EF of 30 to 35% resident of [facility] noncompliant with the BiPAP, presented with lethargy fatigue hallucination and worsening of hypoxia. As per the family her hallucination is new, patient is stating that she is feeling fine she is not endorsing any fever nausea vomiting diarrhea or any stroke related changes. She is not endorsing dysuria. Stating that her stools are loose which is chronic in nature. She does not use BiPAP on a regular basis at the intermediate. Patient is stating that she uses a wheelchair and sometimes a walker. She takes Lasix for her lower extremity swelling. At the time of my evaluation patient has no focal deficit, awake and alert, cracking jokes, saturating well on 4 L nasal cannula, she is bradycardic with stable hemodynamics, D-dimer unremarkable, hemolyzed sample showing hypokalemia, glucose normal troponin trending down she is complaining of burning sensation/chest discomfort EKG not showing any infarctive changes respiratory panel is negative Chest x-ray showing possible retrocardiac infiltrate: She has been given IV antibiotics Review of Systems Const: Denies: fever(s) Eyes: Denies: change in vision ENMT: Denies: throat pain Card: Reports: swelling of feet/ankles Resp: Reports: dyspnea GI: Reports: diarrhea : Denies: flank pain Medications/Allergies Home Medications ?Medication ?Instructions ?Recorded ?Confirmed ?Last Taken ?Type atorvastatin 20 mg tablet (Lipitor) 20 mg PO BEDTIME 09/30/19 03/21/24 12/13/20 History acetaminophen 325 mg tablet 325 mg PO TID Pain 08/22/20 03/21/24 12/13/20 History (Tylenol) buspirone 10 mg tablet 10 mg PO BID 12/13/20 03/21/24 12/13/20 History famotidine 20 mg tablet 20 mg PO BID 06/26/23 03/21/24 Unknown History furosemide 40 mg tablet 40 mg PO DAILY 30 days #30 tabs 07/04/23 03/21/24 12/13/20 Rx albuterol sulfate 90 mcg/actuation 2 puff inhalation Q4H PRN 08/21/23 03/21/24 Unknown History aerosol inhaler Shortness Of Breath fluticasone fur. 100 mcg-umeclid 1 inh inhalation DAILY #60 ea 08/21/23 03/21/24 Unknown Rx 62.5 mcg-vilant 25 mcg inhalat.powder (Trelegy Ellipta) hydralazine 50 mg tablet 50 mg PO QID 08/21/23 03/21/24 Unknown History bisacodyl 10 mg rectal suppository 10 mg MA DAILY PRN Constipation 10/08/23 03/21/24 Unknown History camphor-menthol 0.2 %-3.5 % 1 applic topical TID PRN Pain 10/08/23 12/24/23 Unknown History topical gel insulin glargine-yfgn 100 unit/mL 20 unit SUBCUT BEDTIME 10/08/23 03/21/24 Unknown History (3 mL) subcutaneous pen isosorbide mononitrate 30 mg 30 mg PO DAILY 10/08/23 03/21/24 Unknown History tablet,extended release 24 hr levothyroxine 50 mcg tablet 50 mcg PO QAM 10/08/23 03/21/24 Unknown History magnesium hydroxide 400 mg/5 mL 30 ml PO DAILY PRN Constipation 10/08/23 03/21/24 Unknown History oral suspension (Milk of Magnesia) magnesium oxide 200 mg PO BID 10/08/23 03/21/24 Unknown History sodium phosphates 19 gram-7 118 ml MA DAILY PRN Constipation 10/08/23 03/21/24 Unknown History gram/118 mL enema (Fleet Enema) tramadol 50 mg tablet 50 mg PO DAILY 10/08/23 03/21/24 Unknown History amlodipine 10 mg tablet 10 mg PO DAILY #60 tabs 10/10/23 03/21/24 Unknown Rx dicyclomine 20 mg tablet 20 mg PO 10/27/23 03/21/24 Unknown History carvedilol 3.125 mg tablet (Coreg) 3.125 mg PO BID 03/21/24 03/21/24 Unknown History lisinopril 10 mg tablet 10 mg PO DAILY 03/21/24 03/21/24 Unknown History Allergies Allergy/AdvReac Type Severity Reaction Status Date / Time No Known Allergies Allergy Verified 10/23/24 16:50 PFSH Acute PFSH: Medical History Heart failure with improved ejection fraction (HFimpEF) Bradycardia Hyperkalemia Anemia Acute diverticulitis Heart block AV third degree Obesity hypoventilation syndrome Hyperkalemia Morbid obesity Acute respiratory failure with hypoxia and hypercapnia Shortness of breath Acute kidney injury Chronic CHF (congestive heart failure) Hypokalemia Hypomagnesemia Cardiomyopathy Torsades de pointes Diarrhea Takotsubo cardiomyopathy Gastritis Blood in stool Acute HFrEF (heart failure with reduced ejection fraction) HFrEF (heart failure with reduced ejection fraction) Stress-induced cardiomyopathy Diabetes Hypertension Non-ST elevation MA (NSTEMI) History of cerebrovascular accident COPD (chronic obstructive pulmonary disease) Hypertension Depression with anxiety History of CHF (congestive heart failure) History of GI bleed GERD (gastroesophageal reflux disease) Diabetes CVA (cerebral vascular accident) COPD (chronic obstructive pulmonary disease) Carpal tunnel syndrome on both sides Opioid contract exists Encounter for long-term use of opiate analgesic Chronic radicular low back pain Smokeless tobacco use Low back pain Surgical History History of esophagogastroduodenoscopy (EGD) (~11/2020) History of colonoscopy (~11/2020) H/O knee surgery History of knee replacement History of lumbar surgery Also history of spinal cord stimulator, currently not functioning History of shoulder surgery Family History Other CAD (coronary artery disease) Hypertension Stroke Denies family history of Anesthesia complication Bleeding disorder Social History Smoking and tobacco/nicotine status: former use of tobacco/nicotine Quit status (tobacco/nicotine): has quit using Year quit tobacco: 2012 Former quit date comment: 2ppd X 48 years Alcohol intake: never Substance/Drug Use: never Housing: Long Term Female Reproductive History: Date of last menstrual period: 11/13/20 Vitals/I&O/Wt Last Vital Signs Temp 98.4 F 10/23/24 16:34 Pulse 57 L 10/23/24 20:04 Resp 22 H 10/23/24 20:04 BP 128/69 10/23/24 19:02 Pulse Ox 94 10/23/24 20:04 O2 Del Method Nasal Cannula 10/23/24 20:04 O2 Flow Rate 4 10/23/24 20:04 Physical Exam Narrative: Morbidly obese Awake and alert No active hallucination GCS 15 Nonfocal neuroexam No active sign of meningitis Saturating well 4 L nasal cannula saturating 94% No active respiratory distress Complaining of burning sensation left breast area no sign of rash or shingles No active focal deficit at all Distended nontender abdomen Lower extremity edema 2+, ankle edema S1, S2 No audible stridor or wheezing Data 10/23/24 17:03 10/23/24 17:03 A&P Assessment and plan (1) Hallucination, visual: (2) Gastritis: (3) Chronic hypercapnic respiratory failure: (4) Acute and chronic respiratory failure with hypoxia: (5) Community acquired pneumonia: Plan Visual hallucination This seems like related to worsening of hypoxia and noncompliance with her BiPAP Currently patient has no active focal deficit signs of meningitis, she is afebrile, patient denying dysuria, no history of seizures Monitor closely for now, will request BiPAP overnight Acute on chronic hypoxia: Likely related to pneumonia, currently doing well on 4 L at baseline uses 2 to 3 L at the intermediate D-dimer unremarkable to warrant thromboembolic screening Community-acquired pneumonia: Patient is afebrile here mild leukocytosis, I will only keep her on p.o. levofloxacin for now Continue Trelegy and DuoNeb treatment Avoid steroids for concerns related to hallucination, patient has no active wheezing or stridor Systolic CHF: She does have lower extremity swelling continue Lasix regimen however in the form of IV instead of p.o. DNR/DNI Consistent carb/cardiac diet, insulin sliding scale DVT prophylaxis: Heparin PDMP PDMP Reviewed: Not Reviewed Attestations Medical Necessity Statement*: Anticipate discharge within 24 to 48 hours Diagnoses Hallucination, visual R44.1 Gastritis K29.70 Chronic hypercapnic respiratory failure J96.12 Acute and chronic respiratory failure with hypoxia J96.21 Community acquired pneumonia J18.9
[2024-10-23 21:06] LABS: Procalcitonin 0.12 ng/mL (0-0.5)
--- NOTE | 2024-10-23 21:24 | PC.NURSE ---
[facility] [place] spoke to [facility] in regards being admitted.
[2024-10-23 21:50] LABS: Base Excess VBG 11.9 mmol/L (-3.0-3.0); Blood Gas Operator Identificat jlb; Blood Gas Sample Type Venous; Oxygen Device NC; PCO2 VBG 56.7 mmHg (41-51); PO2 VBG 59.6 mmHg (25-40); Venous Blood Gas Hematocrit 31.5 % (37-47); pH VBG 7.43 (7.32-7.42)
[2024-10-23 22:25] LABS: Glucose Point of Care 123 mg/dL (70-110)
[2024-10-23] MEDS: hyDRALAzine 50 mg Tablet PO (22:59)
[2024-10-23] MEDS: heparin 5,000 unit/mL INJ 1 mL 5000 UNIT SUBCUT (22:59)
[2024-10-24] VITALS (11 sets, daily range): BP systolic 141–193; BP diastolic 50–90; PULSE 61–84; RESP 16–22; TEMP 36.3–36.9; O2SAT 92–96
[2024-10-24] MEDS: guaiFENesin 100 mg/5 mL UDC 10 mL 200 MG PO (01:32)
[2024-10-24] MEDS: acetaminophen 500 mg Tablet PO (01:32)
[2024-10-24] MEDS: levothyroxine 50 mcg Tablet PO (05:32)
[2024-10-24 06:01] LABS: Basophils # 0.1 10^3/uL (0.0-0.1); Basophils % 0.6 %; Eosinophils # 0.2 10^3/uL (0.0-0.8); Eosinophils % 1.2 %; Hematocrit 35.4 % (36-47); Lymphocytes # 2.2 10^3/uL (0.8-4.8); Lymphocytes % 17.3 %; Mean Corpuscular HGB Conc 29.9 g/dL (30-55); Monocytes # 0.9 10^3/uL (0.2-0.9); Neutrophils # 9.32 10^3/uL (1.8-7.7); Nucleated Red Blood Cells % 0 %; Platelet Count 384 10^3/cmm (157-399); Red Blood Count 4.07 10^6/uL (3.85-5.65); Red Cell Distribution Width 16.5 % (12.1-15.1); White Blood Count 12.92 10^3/uL (3.29-11.43)
[2024-10-24 06:23] LABS: Blood Urea Nitrogen 32 mg/dL (8-23); Carbon Dioxide 34 mmol/L (22-29); Chloride 99 mmol/L (98-107); Glucose 134 mg/dL (65-115); Magnesium 2.2 mg/dL (1.7-2.3); Osmolality Calculated 307 mOsm/kg (285-295); Sodium 144 mmol/L (136-145)
[2024-10-24 06:48] LABS: Glucose Point of Care 149 mg/dL (70-110)
[2024-10-24] MEDS: budesonide 0.5 mg/2 mL Neb INHALATION ×2 (08:08→19:57)
[2024-10-24] MEDS: ipratropium-albuterol 3 mL Neb INHALATION ×4 (08:09→19:57)
--- NOTE | 2024-10-24 08:42 | P.PN_ITS ---
Subjective 2 Subjective: 79-year-old female with a past medical h istory of chronic obstructive pulmonary disease (COPD) with chronic respiratory failure on 3L home oxygen, chronic heart failure with reduced ejection fraction (EF 30-35%), hypothyroidism, dyslipidemia, hypertension, and diabetes mellitus presents with progressive weakness and shortness of breath for the past few days. The patient describes worsening dyspnea, particularly with exertion. She noted her oxygen saturation could not be maintained above 80% despite her usual home oxygen therapy. Associated symptoms include a persistent cough, but she denies productive sputum. The patient denies fever. She reports using BiPAP at night, but not all the time. She was also noted to have hallucinations on arrival which had resolved. The patient resides in a long-term. She is followed by Dr. Chowdhury for her cardiac care. Lab trends: - Laboratory Findings: White blood cell count 12,000/?L, hemoglobin 10 g/dL, hematocrit 35%, platelet count 384,000/?L, sodium 144 mEq/L, potassium 5.0 mEq/L (down from 5.5 mEq/L last night), creatinine 0.8 mg/dL (down from 1.0 mg/dL yesterday), troponin T 25 ng/L (baseline 26 ng/L), procalcitonin 0.12 ng/mL. - Imaging Studies: Chest x-ray showing d ense left retrocardiac opacity, possibly consolidation. - Microbiology: SARS, influenza, and COV ID-19 tests were negative. Urinalysis was negative. The patient was started on breathing treatments, budesonide 0.5 mg BID, albuterol nebulizer QID, and levofloxacin 750 mg IV daily. She is also on Lasix 20 mg IV every 24 hours. She is currently on 4L of oxygen via nasal cannula. Medications: Reviewed: Yes Vitals/I&O/Wt Last Vital Signs Temp 97.4 F L 10/24/24 04:15 Pulse 61 10/24/24 07:56 Resp 22 H 10/24/24 07:56 BP 178/65 10/24/24 04:15 Pulse Ox 93 10/24/24 07:56 O2 Del Method Nasal Cannula 10/24/24 07:56 O2 Flow Rate 4 10/24/24 07:56 10/23/24 10/24/24 10/24/24 22:59 06:59 14:59 Intake Total 250 / 250 Balance 250 / 250 Weight last 48 hrs Weight 108.182 kg Physical Exam 2 Narrative: Morbidly obese Awake and alert No active hallucination GCS 15 Nonfocal neuroexam No active sign of meningitis Saturating well 4 L nasal cannula saturating 94% No active respiratory distress Complaining of burning sensation left breast area no sign of rash or shingles No active focal deficit at all Distended nontender abdomen Lower extremity edema 2+, ankle edema S1, S2 No audible stridor or wheezing Data 10/24/24 04:50 10/24/24 04:50 A&P Assessment and plan (1) Hallucination, visual: (2) Gastritis: (3) Chronic hypercapnic respiratory failure: (4) Acute and chronic respiratory failure with hypoxia: (5) Community acquired pneumonia: Plan Acute Exacerbation of COPD with Pneumonia - Patient presents with worsening dyspnea, persistent cough, and hypoxemia. - Chest x-ray shows left retrocardiac opacity, suggestive of possible consolidation. - Elevated white blood cell count at 12 Plan: 1. Continue current oxygen therapy, titrate as needed to maintain SpO2 > 88%. 2. Continue antibiotics: Levofloxacin 750 mg PO daily. 3. Bronchodilator therapy: Budesonide 0.5 mg nebulizer BID, albuterol nebulizer QID. 4. Wean oxygen to baseline as tolerated 5. Sputum culture if able to obtain Chronic Heart Failure with Reduced Ejection Fraction (EF 30-35%) - Currently stable, no acute decompensation noted. - Baseline troponin T of 26 ng/L, with no significant change Plan: 1. Continue current heart failure medications: Coreg 3.25 mg BID, hydralazine 50 mg QID. 2. Continue fluid restriction and low-sodium diet. 3. Montior daily weights and strict intake and output. 4. Continue Lasix 20 mg IV every 24 hours for gentle diuresis. 5. Cardiology follow-up with Dr. Chowdhury upon discharge. Acute on Chronic Respiratory Failure with hypoxemia - Patient on home oxygen 3L/min, currently requiring 4L/min. - Noted to not be compliant with home BiPAP therapy. Plan: 1. Titrate oxygen to maintain SpO2 > 88%. 2. Remainder of managetment as noted above. Hypertension - Currently on hydralazine 50 mg QID, amlodipine 10 mg daily and Coreg 3.125 mg BID Plan: 1. Continue current antihypertensive regimen. Diabetes Mellitus - On Lantus 20 units at bedtime. - Sliding scale insulin Plan: 1. Continue home insulin regimen. 2. Monitor blood glucose levels QACHS Hypothyroidism - On levothyroxine 50 mcg daily. Plan: 1. Continue current managment Dyslipidemia - On atorvastatin 20 mg daily. Plan: 1. Continue current statin therapy. PDMP PDMP Reviewed: Not Reviewed Attestations 2 Medical Necessity Statement*: Patient will require additional day in hospital for continue IV abx, wean oxygen and IV diuretics. Coding Level of Care Code Acute Code for [facility] Diagnoses Hallucination, visual R44.1 Gastritis K29.70 Chronic hypercapnic respiratory failure J96.12 Acute and chronic respiratory failure with hypoxia J96.21 Community acquired pneumonia J18.9
[2024-10-24] MEDS: levoFLOXacin 750 mg Tablet PO (08:46)
[2024-10-24] MEDS: heparin 5,000 unit/mL INJ 1 mL 5000 UNIT SUBCUT ×2 (08:46→21:08)
[2024-10-24] MEDS: FUROsemide 10 mg/mL SDV 2mL 20 MG IVP (08:47)
[2024-10-24] MEDS: insulin lispro 100 unit/1 mL SUBCUT (08:47)
--- NOTE | 2024-10-24 10:18 | PC.SOCIAL ---
IMM Update Pg. 2 of IMM Updated. Copy provided at bedside.
[2024-10-24] MEDS: hyDRALAzine 50 mg Tablet PO ×4 (10:26→21:08)
[2024-10-24] MEDS: amlodipine 10 mg Tablet PO (10:26)
[2024-10-24 11:53] LABS: Glucose Point of Care 111 mg/dL (70-110)
[2024-10-24 16:38] LABS: Glucose Point of Care 121 mg/dL (70-110)
[2024-10-24 20:44] LABS: Glucose Point of Care 132 mg/dL (70-110)
[2024-10-24] MEDS: insulin glargine 100 units/1 mL 20 UNIT SUBCUT (21:08)
[2024-10-25] VITALS (9 sets, daily range): BP systolic 155–182; BP diastolic 68–81; PULSE 58–80; RESP 16–21; TEMP 36.7–36.9; O2SAT 87–96
[2024-10-25] MEDS: levothyroxine 50 mcg Tablet PO (05:22)
[2024-10-25 05:57] LABS: Basophils # 0.1 10^3/uL (0.0-0.1); Basophils % 0.5 %; Eosinophils % 0.4 %; Hematocrit 37.4 % (36-47); Lymphocytes # 1.7 10^3/uL (0.8-4.8); Lymphocytes % 15.4 %; Mean Corpuscular HGB Conc 29.4 g/dL (30-55); Mean Corpuscular Hemoglobin 25.6 pg (27-33); Mean Corpuscular Volume 87.2 fl (85-98); Mean Platelet Volume 8.9 fL (7.4-10.4); Monocytes # 0.7 10^3/uL (0.2-0.9); Monocytes % 6.2 %; Neutrophils # 8.55 10^3/uL (1.8-7.7); Neutrophils % 75.9 %; Nucleated Red Blood Cells % 0 %; Platelet Count 375 10^3/cmm (157-399); Red Blood Count 4.29 10^6/uL (3.85-5.65); Red Cell Distribution Width 16.8 % (12.1-15.1); White Blood Count 11.27 10^3/uL (3.29-11.43)
[2024-10-25 06:16] LABS: Anion Gap 12.5 (5-19); Blood Urea Nitrogen 22 mg/dL (8-23); Calcium 10.1 mg/dL (8.5-10.5); Carbon Dioxide 34 mmol/L (22-29); Chloride 98 mmol/L (98-107); Glucose 129 mg/dL (65-115); Osmolality Calculated 295 mOsm/kg (285-295); Potassium 4.5 mmol/L (3.5-5.1); Sodium 140 mmol/L (136-145)
[2024-10-25 06:41] LABS: Glucose Point of Care 129 mg/dL (70-110)
[2024-10-25] MEDS: ipratropium-albuterol 3 mL Neb INHALATION ×2 (07:32→11:08)
[2024-10-25] MEDS: budesonide 0.5 mg/2 mL Neb INHALATION (07:32)
[2024-10-25 10:53] LABS: Glucose Point of Care 141 mg/dL (70-110)
[2024-10-25] MEDS: insulin lispro 100 unit/1 mL SUBCUT (11:04)
[2024-10-25] MEDS: FUROsemide 10 mg/mL SDV 2mL 20 MG IVP (11:04)
[2024-10-25] MEDS: levoFLOXacin 750 mg Tablet PO (11:04)
[2024-10-25] MEDS: hyDRALAzine 50 mg Tablet PO ×2 (11:04→13:12)
[2024-10-25] MEDS: amlodipine 10 mg Tablet PO (11:04)
[2024-10-25] MEDS: heparin 5,000 unit/mL INJ 1 mL 5000 UNIT SUBCUT (11:04)
--- NOTE | 2024-10-25 11:15 | PM.PN ---
Subjective Subjective: 79-year-old female with a past medical history of chronic obstructive pulmonary disease (COPD) with chronic respiratory failure on 3L home oxygen, chronic heart failure with reduced ejection fraction (EF 30-35%), hypothyroidism, dyslipidemia, hypertension, and diabetes mellitus presents with progressive weakness and shortness of breath for the past few days. The patient describes worsening dyspnea, particularly with exertion. She noted her oxygen saturation could not be maintained above 80% despite her usual home oxygen therapy. Associated symptoms include a persistent cough, but she denies productive sputum. The patient denies fever. She reports using BiPAP at night, but not all the time. She was also noted to have hallucinations on arrival which had resolved. The patient resides in a residential. She is followed by Dr. Chowdhury for her cardiac care. Lab trends: - Laboratory Findings: White blood cell count 12,000/?L, hemoglobin 10 g/dL, hematocrit 35%, platelet count 384,000/?L, sodium 144 mEq/L, potassium 5.0 mEq/L (down from 5.5 mEq/L last night), creatinine 0.8 mg/dL (down from 1.0 mg/dL yesterday), troponin T 25 ng/L (baseline 26 ng/L), procalcitonin 0.12 ng/mL. - Imaging Studies: Chest x-ray showing dense left retrocardiac opacity, possibly consolidation. - Microbiology: SARS, influenza, and COVID-19 tests were negative. Urinalysis was negative. The patient was started on breathing treatments, budesonide 0.5 mg BID, albuterol nebulizer QID, and levofloxacin 750 mg IV daily. She is also on Lasix 20 mg IV every 24 hours. She is currently on 4L of oxygen via nasal cannula. Medications: Reviewed: Yes Vitals/I&O/Wt Last Vital Signs Temp 98.3 F 10/25/24 07:50 Pulse 62 10/25/24 11:08 Resp 18 10/25/24 11:08 BP 182/81 10/25/24 07:50 Pulse Ox 94 10/25/24 11:08 O2 Del Method Nasal Cannula 10/25/24 11:08 O2 Flow Rate 3 10/25/24 11:08 Weight last 48 hrs Weight 107.955 kg Weight 108.182 kg Physical Exam Narrative: Awake, alert, improved respiratory status Chest: decreased at bases and on mid lobe, nonlabored- back to baseline oxygen at 3L CVS; RRR Abdomen. Soft, nt, d Ext; Mild bilaterla LE edema Data 10/25/24 04:38 10/25/24 04:38 A&P Assessment and plan (1) Hallucination, visual: (2) Gastritis: (3) Chronic hypercapnic respiratory failure: (4) Acute and chronic respiratory failure with hypoxia: (5) Community acquired pneumonia: Plan Acute Exacerbation of COPD with Pneumonia - Patient presents with worsening dyspnea, persistent cough, and hypoxemia. - Chest x-ray shows left retrocardiac opacity, suggestive of possible consolidation. - Elevated white blood cell count at 12, improving - Afebrile Plan: 1. Continue current oxygen therapy, titrate as needed to maintain SpO2 > 88%. 2. Continue antibiotics: Levofloxacin 750 mg PO daily. 3. Bronchodilator therapy: Budesonide 0.5 mg nebulizer BID, albuterol nebulizer QID. 4. Oxygen back to baseline 3L today 5. Sputum culture if able to obtain 6. Continue abx for total 7 days Chronic Heart Failure with Reduced Ejection Fraction (EF 30-35%) - Currently stable, no acute decompensation noted. - Baseline troponin T of 26 ng/L, with no significant change Plan: 1. Continue current heart failure medications: Coreg 3.25 mg BID, hydralazine 50 mg QID. 2. Continue fluid restriction and low-sodium diet. 3. Montior daily weights and strict intake and output. 4. Continue Lasix 20 mg IV every 24 hours for gentle diuresis. 5. Cardiology follow-up with Dr. Chowdhury upon discharge. Acute on Chronic Respiratory Failure with hypoxemia - Patient on home oxygen 3L/min, currently requiring 4L/min. - Noted to not be compliant with home BiPAP therapy. Plan: 1. Titrate oxygen to maintain SpO2 > 88%. 2. Remainder of managetment as noted above. Hypertension - Currently on hydralazine 50 mg QID, amlodipine 10 mg daily and Coreg 3.125 mg BID Plan: 1. Resume prior to arrival regimen Diabetes Mellitus - On Lantus 20 units at bedtime. - Sliding scale insulin Plan: 1. Continue home insulin regimen. 2. Monitor blood glucose levels QACHS Hypothyroidism - On levothyroxine 50 mcg daily. Plan: 1. Continue current managment Dyslipidemia - On atorvastatin 20 mg daily. Plan: 1. Continue current statin therapy. Hallucination - Patient today stated this was not new for her. No prior record of psych consult. did not intermittent episode which had improved. Will need to see psychiatry as outpatient for further work up. Plan: - Arrange outpatient follow up with psych. Anticipate discharge today PDMP PDMP Reviewed: Not Reviewed Attestations Medical Necessity Statement*: Discharge orders placed for today Coding Level of Care Code Acute Code for [facility] Diagnoses Hallucination, visual R44.1 Gastritis K29.70 Chronic hypercapnic respiratory failure J96.12 Acute and chronic respiratory failure with hypoxia J96.21 Community acquired pneumonia J18.9
--- NOTE | 2024-10-25 11:29 | P.DS_ITS ---
Discharge Providers Date of Admission: 10/23/24 19:38 Date of Discharge: October 25, 2024 Attending Provider at Admission: Stacey Fowler MD Attending Provider at Discharge: Naya Hawk Primary Care Provider: Nazia Jha Diagnoses at Discharge Discharge Diagnosis (1) Hallucination, visual: Status: Acute (2) Gastritis: Status: Acute (3) Chronic hypercapnic respiratory failure: Status: Acute (4) Acute and chronic respiratory failure with hypoxia: Status: Resolved (5) Community acquired pneumonia: Status: Acute Reason for Visit Reason for Visit: sob Hospital Course Hospital Course 79-year-old female with a past medical history of chronic obstructive pulmonary disease (COPD) with chronic respiratory failure on 3L home oxygen, chronic heart failure with reduced ejection fraction (EF 30-35%), hypothyroidism, dyslipidemia, hypertension, and diabetes mellitus presents with progressive weakness and shortness of breath for the past few days. The patient describes worsening dyspnea, particularly with exertion. She noted her oxygen saturation could not be maintained above 80% despite her usual home oxygen therapy. Associated symptoms include a persistent cough, but she denies productive sputum. The patient denies fever. She reports using BiPAP at night, but not all the time. She was also noted to have hallucinations on arrival which had resolved. [facility] She is followed by Dr. Chowdhury for her cardiac care. Lab trends: - Laboratory Findings: White blood cell count 12,000/?L, hemoglobin 10 g/dL, hematocrit 35%, platelet count 384,000/?L, sodium 144 mEq/L, potassium 5.0 mEq/L (down from 5.5 mEq/L last night), creatinine 0.8 mg/dL (down from 1.0 mg/dL yesterday), troponin T 25 ng/L (baseline 26 ng/L), procalcitonin 0.12 ng/mL. - Imaging Studies: Chest x-ray showing dense left retrocardiac opacity, possibly consolidation. - Microbiology: SARS, influenza, and COVID-19 tests were negative. Urinalysis was negative. The patient was started on breathing treatments, budesonide 0.5 mg BID, albuterol nebulizer QID, and levofloxacin 750 mg IV daily. She is also on Lasix 20 mg IV every 24 hours. She was on 4L via NC which was weaned to patients 3lpm baseline prior to arrival. She was discharge in stable condition on Levquin. Advised to have a close outpateint follow up. Physical Exam Narrative: Awake, alert, improved respiratory status Chest: decreased at bases and on mid lobe, nonlabored- back to baseline oxygen at 3L CVS; RRR Abdomen. Soft, nt, d Ext; Mild bilaterla LE edema Discharge Data Studies Completed and Pending Completed Studies During Hospitalization Category Date Time Status XR KUB portable [id number] Stat Exams 10/23/24 16:47 Completed XR chest 1V portable [id number] Stat Exams 10/23/24 16:43 Completed Pending at discharge Category Date Time Status Basic Metabolic Panel AM LABS Lab 10/26/24 04:00 Ordered Basic Metabolic Panel AM LABS Lab 10/27/24 04:00 Ordered Complete Blood Count w/Auto AM LABS Lab 10/26/24 04:00 Ordered Complete Blood Count w/Auto AM LABS Lab 10/27/24 04:00 Ordered VBG [Venous Blood Gas] Stat Lab 10/23/24 19:47 Results Radiology Impressions Chest X-Ray 10/23/24 16:43 IMPRESSION: Dense left retrocardiac opacity, more pronounced in comparison to prior study. Findings may represent increasing atelectasis, however underlying focal consolidation can not be excluded. KUB X-Ray 10/23/24 16:47 IMPRESSION: Relative paucity of intra-abdominal gas with no dilated loops of small bowel identified. Laboratory Results WBC 11.27 10^3/uL (3.29-11.43) 10/25/24 04:38 RBC 4.29 10^6/uL (3.85-5.65) 10/25/24 04:38 Hgb 11.00 g/dL (11.27-16.99) L 10/25/24 04:38 Hct 37.4 % (36-47) 10/25/24 04:38 MCV 87.2 fl (85-98) 10/25/24 04:38 MCH 25.6 pg (27-33) L 10/25/24 04:38 MCHC 29.4 g/dL (30-55) L 10/25/24 04:38 RDW 16.8 % (12.1-15.1) H 10/25/24 04:38 Plt Count 375 10^3/cmm (157-399) 10/25/24 04:38 MPV 8.9 fL (7.4-10.4) 10/25/24 04:38 Neut % (Auto) 75.9 % 10/25/24 04:38 Lymph % (Auto) 15.4 % 10/25/24 04:38 [place] % (Auto) 6.2 % 10/25/24 04:38 Eos % (Auto) 0.4 % 10/25/24 04:38 Baso % (Auto) 0.5 % 10/25/24 04:38 Neut # (Auto) 8.55 10^3/uL (1.8-7.7) H 10/25/24 04:38 Lymph # (Auto) 1.7 10^3/uL (0.8-4.8) 10/25/24 04:38 [place] # (Auto) 0.7 10^3/uL (0.2-0.9) 10/25/24 04:38 Eos # (Auto) 0.0 10^3/uL (0.0-0.8) 10/25/24 04:38 Baso # (Auto) 0.1 10^3/uL (0.0-0.1) 10/25/24 04:38 Nucleated RBC % (auto) 0 % 10/25/24 04:38 Nucleated RBCs # 0.0 /100WBC 10/25/24 04:38 D-Dimer 0.33 ug/mLFEU (0-0.59) 10/23/24 17:03 Specimen Type Venous 10/23/24 19:47 Cornel Test N/a 10/23/24 19:47 VBG pH 7.43 (7.32-7.42) H 10/23/24 19:47 VBG pCO2 56.7 mmHg (41-51) H 10/23/24 19:47 VBG pO2 59.6 mmHg (25-40) H 10/23/24 19:47 VBG HCO3 38.0 mmol/L (24-28) H 10/23/24 19:47 VBG Base Excess 11.9 mmol/L (-3.0-3.0) H 10/23/24 19:47 VBG Hematocrit 31.5 % (37-47) L 10/23/24 19:47 O2 Delivery Device Nc 10/23/24 19:47 O2 Liters/Min 4.0 % 10/23/24 19:47 Computer Methods Analyst ID jlb 10/23/24 19:47 Sodium 140 mmol/L (136-145) 10/25/24 04:38 Potassium 4.5 mmol/L (3.5-5.1) 10/25/24 04:38 Chloride 98 mmol/L (98-107) 10/25/24 04:38 Carbon Dioxide 34 mmol/L (22-29) H 10/25/24 04:38 Anion Gap 12.5 (5-19) 10/25/24 04:38 BUN 22 mg/dL (8-23) 10/25/24 04:38 Creatinine 0.6 mg/dL (0.5-0.9) 10/25/24 04:38 GFR Calculation Not Reportable 10/25/24 04:38 Glucose 129 mg/dL (65-115) H 10/25/24 04:38 POC Glucose 141 mg/dL (70-110) H 10/25/24 10:45 Calculated Osmolality 295 mOsm/kg (285-295) 10/25/24 04:38 Calcium 10.1 mg/dL (8.5-10.5) 10/25/24 04:38 Magnesium 2.2 mg/dL (1.7-2.3) 10/24/24 04:50 Total Bilirubin 0.3 mg/dL (0.15-1.2) 10/23/24 17:03 AST 12 U/L (0-32) 10/23/24 17:03 ALT 11 U/L (0-33) 10/23/24 17:03 Alkaline Phosphatase 86 U/L (35-105) 10/23/24 17:03 Troponin T Baseline 26 ng/L (0-10) H 10/23/24 17:03 Troponin T 120 Minute 25.62 ng/L (0-10) H 10/23/24 18:53 Delta Troponin T -0.38 ABS# (0-10) L 10/23/24 18:53 NT-Pro-B Natriuret Pep 411 pg/mL (0-450) 10/23/24 17:03 Total Protein 7.2 g/dL (6.6-8.7) 10/23/24 17:03 Albumin 4.2 g/dL (3.5-5.2) 10/23/24 17:03 Globulin 3.0 g/dL (1.3-4.6) 10/23/24 17:03 Procalcitonin 0.12 ng/mL (0-0.5) 10/23/24 18:53 Urine Color Yellow (Yellow) 10/23/24 17:00 Urine Appearance Clear (CLEAR) 10/23/24 17:00 Urine pH 5.0 (5-7) 10/23/24 17:00 Ur Specific [place] 1.017 (1.005-1.030) 10/23/24 17:00 Urine Protein Trace (Negative) A 10/23/24 17:00 Urine Glucose (UA) Negative (Normal) 10/23/24 17:00 Urine Ketones Negative (Negative) 10/23/24 17:00 Urine Blood Negative (Negative) 10/23/24 17:00 Urine Nitrate Negative (Negative) 10/23/24 17:00 Urine Bilirubin Negative (Negative) 10/23/24 17:00 Urine Urobilinogen 0.2 mg/dL (Negative) 10/23/24 17:00 Ur Leukocyte Esterase Negative (Negative) 10/23/24 17:00 Urine RBC 0-2 /hpf (0-2) 10/23/24 17:00 Urine WBC 0-5 /hpf (0-5) 10/23/24 17:00 Ur Squamous Epith Cells 0-5 /hpf (0-5) 10/23/24 17:00 Amorphous Sediment Not Reportable 10/23/24 17:00 Urine Bacteria None seen /hpf (NONE) 10/23/24 17:00 Hyaline Casts 11.16 /lpf 10/23/24 17:00 Influenza A (PCR) Negative (Negative) 10/23/24 17:05 Influenza Type B (PCR) Negative (Negative) 10/23/24 17:05 RSV (PCR) Negative (Negative) 10/23/24 17:05 SARS-CoV-2 (PCR) Negative (Negative) 10/23/24 17:05 Vitals Last Vital Signs Temp 98.3 F 10/25/24 07:50 Pulse 66 10/25/24 11:18 Resp 18 10/25/24 11:08 BP 182/81 10/25/24 07:50 Pulse Ox 94 10/25/24 11:08 O2 Del Method Nasal Cannula 10/25/24 11:08 O2 Flow Rate 3 10/25/24 11:08 Discharge Plan Discharge Patient Disposition: Xfer SNF Condition: Stable Prescriptions: New levofloxacin 750 mg Tablet 750 mg PO DAILY Qty: 5 0RF Continued atorvastatin [Lipitor] 20 mg tablet 20 mg PO BEDTIME hydralazine 50 mg tablet 50 mg PO QID albuterol sulfate 90 mcg/actuation HFA aerosol inhaler 2 puff inhalation Q4H PRN (Reason: Shortness Of Breath) Trelegy Ellipta 100-62.5-25 mcg blister with device 1 inh inhalation DAILY Qty: 60 6RF dicyclomine 20 mg tablet 20 mg PO BID PRN (Reason: stomach discomfort) acetaminophen [Tylenol] 325 mg Tablet 325 mg PO QID buspirone 10 mg tablet 10 mg PO BID famotidine 20 mg tablet 20 mg PO BID furosemide 40 mg Tablet 40 mg PO DAILY 30 Days Qty: 30 0RF isosorbide mononitrate 30 mg tablet extended release 24 hr 30 mg PO DAILY insulin glargine-yfgn 100 unit/mL (3 mL) insulin pen 20 unit SUBCUT BEDTIME magnesium hydroxide [Milk of Magnesia] 400 mg/5 mL Suspension 30 ml PO DAILY PRN (Reason: Constipation) levothyroxine 50 mcg tablet 50 mcg PO QAM bisacodyl 10 mg Suppository 10 mg ID DAILY PRN (Reason: Constipation) Fleet Enema 19-7 gram/118 mL Enema 118 ml ID DAILY PRN (Reason: Constipation) camphor-menthol 0.2-3.5 % Gel 1 applic TOPICAL TID PRN (Reason: Pain) Rx Instructions: rub in gently and completely magnesium oxide 200 mg magnesium tablet 200 mg PO BID amlodipine 10 mg tablet 10 mg PO DAILY Qty: 60 4RF carvedilol 6.25 mg tablet 6.25 mg PO BID trazodone 50 mg tablet 50 mg PO BEDTIME lisinopril 20 mg tablet 20 mg PO DAILY guaifenesin 100 mg/5 mL Liquid 200 mg PO Q4H PRN (Reason: Cough) ondansetron 4 mg Tablet,Disintegrating 4 mg PO Q4H PRN (Reason: Nausea) loratadine 10 mg Tablet 10 mg PO DAILY Trulicity 0.75 mg/0.5 mL pen injector 0.75 mg SUBCUT Q7D Discontinued tramadol 50 mg tablet 50 mg PO Q6H PRN (Reason: Pain, Moderate) cyclobenzaprine 5 mg Tablet 5 mg PO DAILY Discharge Orders: Discharge Order (Routine); Ordered 10/25/24 Ordered By: Naya Hawk Referrals: Nazia Jha PA [Primary Care Provider] - 4-7 days Discharge Diet: Diabetic and Low Salt Discharge Activity: Increase activity as tolerated Patient Instructions: Levofloxacin (By mouth) (Levaquin, Levaquin Leva-erick), Opioid Safety, Pneumonia Stoplight Activity Restrictions/Additional Instructions: Return to hospital if worsening respiratory distress, hypoxia or evidence of worsening infection. Discharge Attestations Time Spent in Discharge Care*: greater than 30 min Status at Discharge: Cognitive status at discharge: cognitively intact , Behavioral status at discharge: cooperative , Functional status at discharge: other assisted ambulation , Overall status at discharge: patient is progressing back to baseline Quality Metrics Clinical Quality Measures [ No reported AMI, CVA or VTE this stay] Coding Level of Care Code Acute Code for Chg Fwd Diagnoses Hallucination, visual R44.1 Gastritis K29.70 Chronic hypercapnic respiratory failure J96.12 Acute and chronic respiratory failure with hypoxia J96.21 Community acquired pneumonia J18.9
[2024-10-25 13:55] LABS: SARS Covid-2 Antigen Negative (Negative)
== END 2024-10-25 15:00 | disposition skilled nursing facility (03) ==
LOC: ER 19:56 → MEDSURG 20:49
PROVIDERS: Admitting Provider Internal Medicine; Emergency Provider Emergency Medicine; PCP Physician Assistant; Visit Provider Hospitalist
DX: J96.12 Chronic respiratory failure with hypercapnia (principal); J96.21 Acute and chronic respiratory failure with hypoxia; J18.9 Pneumonia, unspecified organism; K29.70 Gastritis, unspecified, without bleeding; R44.1 Visual hallucinations; E11.9 Type 2 diabetes mellitus without complications; Z79.4 Long term (current) use of insulin; J44.9 Chronic obstructive pulmonary disease, unspecified; Z99.81 Dependence on supplemental oxygen; I11.0 Hypertensive heart disease with heart failure; I50.20 Unspecified systolic (congestive) heart failure; E03.9 Hypothyroidism, unspecified; E78.5 Hyperlipidemia, unspecified; R00.1 Bradycardia, unspecified; E66.01 Morbid (severe) obesity due to excess calories; Z68.42 Body mass index [BMI] 45.0-49.9, adult; K21.9 Gastro-esophageal reflux disease without esophagitis; I21.4 Non-ST elevation (NSTEMI) myocardial infarction; Z87.891 Personal history of nicotine dependence; Z66 Do not resuscitate
CPT/HCPCS: 36415; 36416; 51701; 71045; 74018; 80048; 80053; 81001; 82803; 82962; 83735; 83880; 84145; 84484; 85025; 85378; 87426; 87637; 93005; 94640; 94760; 96365; 96372; 96375; 96376; 97110; 97116; 97161; 97167; 97530; 99285; G0378; J0456; J0696; J1644; J1815; J1940; J7050; J7626; J9999

== ENCOUNTER → 2024-11-08 08:52 | Outpatient (BNVA) | payer MEDICARE, MEDICAID, SELFPAY | PROVIDERS: PCP Physician Assistant; Visit Provider Internal Medicine Cardiovascular Disease | DX: I49.9 Cardiac arrhythmia, unspecified (principal); I47.20 Ventricular tachycardia, unspecified; I47.10 Supraventricular tachycardia, unspecified; I49.1 Atrial premature depolarization; I49.3 Ventricular premature depolarization | CPT/HCPCS: 93242 ==

== ENCOUNTER → 2024-11-08 09:01 | Outpatient (BNVA) | payer MEDICARE, MEDICAID, SELFPAY | PROVIDERS: PCP Physician Assistant; Visit Provider Internal Medicine Cardiovascular Disease | DX: I49.9 Cardiac arrhythmia, unspecified (principal); R00.1 Bradycardia, unspecified; I44.0 Atrioventricular block, first degree; R94.31 Abnormal electrocardiogram [ECG] [EKG] | CPT/HCPCS: 93005 ==

== ENCOUNTER → 2024-12-21 08:00 | Outpatient (BNVA) | payer MEDICARE, MEDICAID, SELFPAY | PROVIDERS: PCP Physician Assistant; Visit Provider Internal Medicine | DX: I11.0 Hypertensive heart disease with heart failure (principal); I50.42 Chronic combined systolic (congestive) and diastolic (congestive) heart failure; E11.9 Type 2 diabetes mellitus without complications; Z79.4 Long term (current) use of insulin; E66.2 Morbid (severe) obesity with alveolar hypoventilation; Z68.42 Body mass index [BMI] 45.0-49.9, adult; J43.2 Centrilobular emphysema; R06.02 Shortness of breath; Z87.891 Personal history of nicotine dependence; I25.2 Old myocardial infarction | CPT/HCPCS: 99214 ==

== ENCOUNTER 2025-01-24 08:08 | Outpatient (CLI) | payer MEDICARE, MEDICAID, SELFPAY ==
--- NOTE | 2025-01-24 08:15 | USCV_ITS ---
Lauren Jose Age: 79 Gender: F : 1945 Exam Date: 01/24/2025 08:29 Ordering Phys: Nazia Jha Technologist: CELSO [place] [facility] [place]: vtach BP: 120 / 76 HR: 56 Rhythm: Sinus Technical Quality: Adequate MEASUREMENTS (Male / Female) Normal Values 2D ECHO LV Diastolic Diameter PLAX 6.3 cm 4.2 - 5.9 / 3.9 - 5.3 cm IVS Diastolic Thickness 1.1 cm 0.6 - 1.0 / 0.6 - 0.9 cm IVS Systolic Thickness 2.3 cm LVPW Diastolic Thickness 1.0 cm 0.6 - 1.0 / 0.6 - 0.9 cm LVPW Systolic Thickness 1.3 cm LVOT Diameter 1.9 cm LV Ejection Fraction 2D Teich 52.9 % LV Ejection Fraction MOD 4C 57.7 % LV Ejection Fraction MOD 2C 60.2 % LV Ejection Fraction 2C AL 60.9 % LA Diameter 4.2 cm RA Systolic Volume 4C AL 53.2 ml RA Systolic Volume 4C MOD 53.8 ml LA Sys Volume AL 58.6 cm cubed LA Sys Volume Index AL 26.9 cm cubed/m squared Aorta at Sinotubular Diameter 2.3 cm M-MODE LA Ao Ratio MM 2.7 AV Cusp Separation MM 1.3 cm DOPPLER AV Peak Velocity 218.7 cm/s LVOT Peak Velocity 195.0 cm/s AV Area Cont Eq vti 2.5 cm squared AV Area Cont Eq pk 2.6 cm squared MV Peak Velocity 88.0 cm/s MV Area PHT 3.0 cm squared Mitral E to A Ratio 0.8 TR Peak Velocity 133.0 cm/s TR Peak Gradient 7.1 mmHg TV Peak E Velocity 59.0 cm/s PV Peak Velocity 140.0 cm/s FINDINGS Left Ventricle Left ventricle is dilated. LV systolic function is normal with EF of 55-60%. No regional wall motion abnormalities are seen. Grade 1 diastolic dysfunction. Right Ventricle Normal in size and function Right Atrium Normal in size Left Atrium Normal in size Mitral Valve Grossly normal. Mild mitral regurgitation. Aortic Valve Aortic valve is thickened. Mild aortic stenosis with mean gradient across aortic valve of 12 mmHg. Tricuspid Valve Insufficient TR jet to evaluate RVSP. Pulmonic Valve Not well visualized Pericardium Normal Aorta Normal in size IVC Not well visualized CONCLUSIONS LV systolic function is normal with EF 55-60%. Left ventricle is dilated. Grade 1 diastolic dysfunction. Mild mitral regurgitation Mild aortic stenosis Brenden Chowdhury MD (Electronically Signed) Final Date: 10 February 2025 09:18 S
== END 2025-01-24 08:09 | disposition home or self-care (01) ==
LOC: RAD 08:11
PROVIDERS: PCP Physician Assistant; Visit Provider Physician Assistant
DX: I47.20 Ventricular tachycardia, unspecified (principal); R93.1 Abnormal findings on diagnostic imaging of heart and coronary circulation; I34.0 Nonrheumatic mitral (valve) insufficiency; I35.8 Other nonrheumatic aortic valve disorders; I35.0 Nonrheumatic aortic (valve) stenosis
CPT/HCPCS: 93306

== ENCOUNTER 2025-02-12 12:34 | Inpatient (IN) | payer MEDICARE, MEDICAID, SELFPAY ==
[2025-02-12] VITALS (23 sets, daily range): BP systolic 139–215; BP diastolic 71–109; PULSE 69–95; RESP 17–30; TEMP 36.6–37.1; O2SAT 87–95; BMI 37.8
--- OUTSIDE RECORDS SUMMARY | 2025-02-12 12:37 | XMS_ITS | Patient Health Record ---
Author Organization [facility] Address [address] [place] [address] Support Name Relationship Address Phone Lauren Jose Guarantor Unknown Unavailable Reason For Referral No Information Plan Of Treatment No Information
--- OUTSIDE RECORDS SUMMARY | 2025-02-12 12:37 | XMS_ITS ---
Author Organization Unknown Problems Date Problem Result OnSetDate Icd10 SnomedCode Severity Cu stom 12/07/2024 12:00:00 AM Pain 12/07/2024 12:00:00 AM [id number] 04/20/2024 12:00:00 AM Sebaceous cyst of skin 04/20/2024 12:00:00 AM [id number] 07/20/2024 12:00:00 AM Acute respiratory syncytial virus bronchitis 07/20/2024 12:00:00 AM [id number] 10/26/2024 12:00:00 AM Pneumonia 10/26/2024 12:00:00 AM [id number] 08/10/2024 12:00:00 AM Herpes zoster 08/10/2024 12:00:00 AM [id number] 03/23/2024 12:00:00 AM Muscle spasm of cervical muscle of neck 03/23/2024 12:00:00 AM [id number] 12/07/2024 12:00:00 AM Anxiety 12/07/2024 12:00:00 AM [id number] 12/28/2024 12:00:00 AM Acute exacerbation of chronic obstructive pulmonary disease 12/28/2024 12:00:00 AM [id number] 11/02/2024 12:00:00 AM Acute kidney injury 11/02/2024 12:00:00 AM [id number] 02/08/2025 12:00:00 AM Moderate chronic obstructive pulmonary disease 02/08/2025 12:00:00 AM [id number] 10/26/2024 12:00:00 AM Irregular heart beat 10/26/2024 12:00:00 AM [id number]
--- OUTSIDE RECORDS SUMMARY | 2025-02-12 12:37 | XMS_ITS ---
Author Organization [facility] are Care Team Providers Care Broadcast Director Operations Name Role Phone Jay Jay Jha Unavailable Unavailable Kendall Gonzalez Unavailable Unavailable Fam Goldman Unavailable Unavailable Nazia Jha Unavailable Unavailable Ty Gottlieb Unavailable Allergies and adverse reactions No Known Allergies Care Team Name Role Address Phone Organization Dates Ty Gottlieb PCP [address] [place], [address], [place] (Office): [facility] 07/03/2023 - 09/21/2023 Jay Jay Jha [address] [place], [address], [place] (Office): : [facility] 07/03/2023 - 09/21/2023 Kendall Gonzalez [address] [place], [address], [place] (Office): [facility] 07/03/2023 - 09/21/2023 Fam Goldman [address] [place], [address], [facility] (Office): : [facility] 07/03/2023 - 09/21/2023 Nazia Jha [address] [place], [address], [place] (Office): : [facility] 07/03/2023 - 09/21/2023 Immunizations Immunization Status Vaccine Details Vaccine Code CodeSystem Date Notes Influenza cancelled Influenza, high-dose, split virus, quadrivalent, injectable, preservative free 197 CVX created date: 07/28/2023 consent date: 07/28/2023 Resident states she has already had for this season SARS-COV-2 (COVID-19) cancelled SARS-COV-2 (COVID-19) vaccine, mRNA, spike protein, LNP, bivalent, preservative free, 10 mcg/0.2 mL dose 230 CVX created date: 08/04/2023 consent date: 08/04/2023 SARS-COV-2 (COVID-19) cancelled SARS-COV-2 (COVID-19) vaccine, mRNA, spike protein, LNP, bivalent, preservative free, 10 mcg/0.2 mL dose 230 CVX created date: 08/04/2023 consent date: 08/04/2023 SARS - COV2 (Moderna) Booster cancelled SARS-COV-2 (COVID-19) vaccine, mRNA, spike protein, LNP, preservative free, 100 mcg/0.5mL dose or 50 mcg/0.25mL dose 207 CVX created date: 08/04/2023 consent date: 08/04/2023 Prevnar 20 cancelled Pneumococcal conjugate vaccine 20-valent (PCV20), polysaccharide [id number] conjugate, adjuvant, preservative free 216 CVX created date: 08/04/2023 consent date: 08/04/2023 Moderna Bivalent cancelled SARS-COV-2 (COVID-19) vaccine, mRNA, spike protein, LNP, bivalent, preservative free, 50 mcg/0.5 mL or 25 mcg/0.25 mL dose 229 CVX created date: 08/13/2023 consent date: 08/13/2023 Medications Section Medication Name Status Code CodeSystem Dose Route Frequency Admin Type Sig Text Start Date End Date Catapres-TT S-3 Patch Weekly 0.3 MG/24HR active 683062 RXNORM 1 patch Transder mal one time a day Routine Apply 1 patch transd ermall y one time a day every Thu for hypert ension and remove per schedu le 2022 - Mental Status Section Date Assessment Total Score Description 09/21/2023 CAM 0 No delirium ind icated 07/09/2023 BIMS 15 cognitively int act CAM 0 No delirium ind icated PHQ-9 00 Problems Problem # Description Date of onset Resolved Date Code CodeSystem Concern Status 1 OBSTRUCTIVE SLEEP APNEA (ADULT) (PEDIATRIC) 08/20/[address] active 2 PAIN, UNSPECIFIED 08/19/[address] active 3 OTHER MUSCLE SPASM 08/12/[address] active 4 HYPOTHYROIDISM, UNSPECIFIED 07/15/[address] active 5 METHICILLIN RESISTANT STAPHYLOCOCCUS AUREUS INFECTION THE CAUSE OF DISEASES CLASSIFIED ELSEWHERE 07/07/[address] active 6 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 ENABLING MACHINES AND DEVICES 07/03/[address] active 7 ENCOUNTER FOR IMMUNIZATION 07/03/[address] active 8 NON-ST ELEVATION (NSTEMI) MYOCARDIAL INFARCTION 07/03/[address] active 9 ACUTE RESPIRATORY FAILURE WITH HYPOXIA 07/02/[address] active 10 ACUTE SYSTOLIC (CONGESTIVE) HEART FAILURE 07/02/[address] active 11 CEREBRAL INFARCTION, UNSPECIFIED 07/02/[address] active 12 CHRONIC OBSTRUCTIVE PULMONARY DISEASE WITH (ACUTE) EXACERBATION 07/02/[address] active 13 CHRONIC PULMONARY EDEMA 07/02/[address] active 14 COVID-19 07/02/[address] active 15 ENCEPHALOPATHY, UNSPECIFIED 07/02/[address] active 16 ESSENTIAL (PRIMARY) HYPERTENSION 07/02/[address] active 17 GASTRO-ESOPHAGEAL REFLUX DISEASE WITHOUT ESOPHAGITIS 07/02/[address] active 18 GENERALIZED EDEMA 07/02/[address] active 19 HEART FAILURE, UNSPECIFIED 07/02/[address] active 20 HYPERKALEMIA 07/02/[address] active 21 HYPERLIPIDEMIA, UNSPECIFIED 07/02/[address] active 22 HYPERTENSIVE EMERGENCY 07/02/[address] active 23 MAJOR DEPRESSIVE DISORDER, SINGLE EPISODE, UNSPECIFIED 07/02/[address] active 24 MORBID (SEVERE) OBESITY DUE TO EXCESS CALORIES 07/02/[address] active 25 PNEUMONIA DUE TO CORONAVIRUS DISEASE 201807/02/[address] active 26 TYPE 2 DIABETES MELLITUS WITHOUT COMPLICATIONS 07/02/[address] active Reason for Referral No Reasons for Referral Entered Social History Social History Observation Description Start Date End Date Code Code System Current Smoking Status Tobacco smoking consumption unknown 505388191 SNOMED CT Sex Assigned At Female 1945 36630-5 [facility] Gender Identity Female [id number] [address] Vital Signs Code Code System Vitals Name Values and Units Timing Information 49104-5 [facility] Weight Fcrmb=754.0 Units=Lbs 82369-1 [facility] O2 % BldC Oximetry Value=95.0 Units= % 09/21/2023 2339-0 [facility] Blood Sugar Duxxl=756.0 Units=mg/dL 09/21/2023 8462-4 [facility] Blood Pressure-Diastolic Value=50 Un its=mmHg 09/21/2023 8480-6 [facility] Blood Pressure-Systolic Vtxhb=492 Un its=mmHg 09/21/2023 9279-1 [facility] Respiratory Rate Value=14.0 Units=/m in 09/19/2023 8310-5 [facility] Body Temperature Value=97.2 Units= F 09/19/2023 8867-4 [facility] Heart rate Value=64.0 Units=/min 70394-8 [facility] Pain Level Value=1.0 08/18/2023
--- NOTE | 2025-02-12 12:41 | ECG_ITS ---
[facility]12 Pat Name: Lauren Jose Department: Room: Gender: Female Examining Officer: : 1945 Requested By: Talita Gabriel Order Number: [id number] Olga MD: Talon Salguero M.D. Measurements Intervals [place] Rate: 72 P: -76 NV: 148 QRS: -16 QRSD: 115 T: 65 QT: 395 QTc: 434 Interpretive Statements ECTOPIC ATRIAL RHYTHM WITH OCCASIONAL SUPRAVENTRICULAR PREMATURE COMPLEXES POSSIBLE ANTERIOR MYOCARDIAL INFARCTION , OF INDETERMINATE AGE [30 ms Q WAVE IN V3/V4, OR R < 0.2 mV IN V4] Compared to ECG 11/08/2024 09:09:06 Ectopic atrial rhythm now present Sinus bradycardia no longer present First degree AV block no longer present Myocardial infarct finding still present Electronically Signed On 02-14-2025 10:03:48 CDT by Talon Salguero M.D. [email or web address]
--- NOTE | 2025-02-12 12:41 | XRR_ITS ---
PROCEDURE INFORMATION: Exam: XR Chest Exam date and time: 02/12/2025 1:05 PM Age: 79 years old Clinical indication: Shortness of breath; Prior surgery; Surgery date: 6+ months; Surgery type: Bone stimulator TECHNIQUE: Imaging protocol: Radiologic exam of the chest. Views: 1 view. COMPARISON: CR XR chest 1V portable [id number] 10/23/2024 5:05 PM FINDINGS: Tubes, catheters and devices: Midthoracic neurostimulator. Lungs: Bibasilar atelectasis or infiltrates, left slightly greater than right. Pleural spaces: Unremarkable. No pleural effusion. No pneumothorax. Heart/Mediastinum: See Vasculature finding. Vasculature: Mild cardiomegaly and uncoiling of the thoracic aorta. Bones/joints: Unremarkable. XR/XR chest 1V portable [id number] IMPRESSION: Mild bibasilar opacities.
[2025-02-12 12:55] LABS: ABG PCO2 55.5 mmHg (35-45); ABG PH Result 7.42 (7.35-7.45); Alveolar-Arterial Oxygen Gradi 15.5 mmHg (5-10); Arterial Blood Gas Hematocrit 34.4 % (37-47); Blood Gas Allen Test Pos; Blood Gas LPM 4.0 %; Blood Gas Operator Identificat BROMA; Blood Gas Sample Site Radial, right; Blood Gas Sample Type Arterial; Carboxyhemoglobin 1.2 %THgb (0.4-20.1); Glucose Level-ABG 316.0 mg/dL (70-115); HCO3 ABG 36.1 mmol/L (22-26); Ionized Calcium Level - ABG 1.3 mmol/L (1.1-1.4); Methemoglobin 0.7 % (0.4-1.5); Oxygen Saturation ABG 94.6; PO2 ABG 70.0 mmHg (80.0-100.0); PO2 FiO2 Ratio Arterial Blood 194; Potassium Level - ABG 4.6 mmol/L (3.5-5.0); Sodium Level - ABG 140.0 mmol/L (131-143)
--- NOTE | 2025-02-12 13:10 | W.ED.SOB ---
HPI - SOB/Dyspnea General: Chief Complaint: Shortness of Breath/Dyspnea Stated Complaint: sob History of Present Illness: HPI Narrative: 79-year-old female with a history of congestive heart failure, anemia, third-degree heart block, obesity, chronic hypoxemic respiratory failure on 2 to 3 L nasal cannula at all times, diabetes, COPD, hypertension, stroke and GERD who presents emergency room with worsening shortness of breath and some confusion from the fpc. She was recently treated for COPD exacerbation and had just completed a course of steroids. She has a productive cough. She reports feeling more short of breath. Related Data Home Medications ?Medication ?Instructions ?Recorded ?Confirmed atorvastatin 20 mg tablet (Lipitor) 20 mg PO BEDTIME 09/30/19 12/21/24 acetaminophen 325 mg tablet 325 mg PO QID Pain 08/22/20 12/21/24 (Tylenol) buspirone 10 mg tablet 10 mg PO BID 12/13/20 12/21/24 famotidine 20 mg tablet 20 mg PO BID 06/26/23 12/21/24 albuterol sulfate 90 mcg/actuation 2 puff inhalation Q4H PRN 08/21/23 12/21/24 aerosol inhaler Shortness Of Breath hydralazine 50 mg tablet 50 mg PO QID 08/21/23 12/21/24 bisacodyl 10 mg rectal suppository 10 mg RI DAILY PRN Constipation 10/08/23 12/21/24 camphor-menthol 0.2 %-3.5 % 1 applic topical TID PRN Pain 10/08/23 10/23/24 topical gel insulin glargine-yfgn 100 unit/mL 20 unit SUBCUT BEDTIME 10/08/23 12/21/24 (3 mL) subcutaneous pen isosorbide mononitrate 30 mg 30 mg PO DAILY 10/08/23 12/21/24 tablet,extended release 24 hr levothyroxine 50 mcg tablet 50 mcg PO QAM 10/08/23 12/21/24 magnesium hydroxide 400 mg/5 mL 30 ml PO DAILY PRN Constipation 10/08/23 12/21/24 oral suspension (Milk of Magnesia) magnesium oxide 200 mg PO BID 10/08/23 12/21/24 sodium phosphates 19 gram-7 118 ml RI DAILY PRN Constipation 10/08/23 12/21/24 gram/118 mL enema (Fleet Enema) dicyclomine 20 mg tablet 20 mg PO BID PRN stomach discomfort 10/27/23 12/21/24 carvedilol 6.25 mg tablet 6.25 mg PO BID 10/23/24 12/21/24 dulaglutide 0.75 mg/0.5 mL 0.75 mg SUBCUT Q7D 10/23/24 12/21/24 subcutaneous pen injector (Trulicity) guaifenesin 100 mg/5 mL oral liquid 200 mg PO Q4H PRN Cough 10/23/24 12/21/24 lisinopril 20 mg tablet 20 mg PO DAILY 10/23/24 12/21/24 loratadine 10 mg tablet 10 mg PO DAILY 10/23/24 12/21/24 ondansetron 4 mg disintegrating 4 mg PO Q4H PRN Nausea 10/23/24 12/21/24 tablet trazodone 50 mg tablet 50 mg PO BEDTIME 10/23/24 10/23/24 duloxetine 60 mg capsule,delayed 60 mg PO DAILY 12/21/24 12/21/24 release (Cymbalta) tizanidine 2 mg capsule 2 mg PO Q8H PRN 12/21/24 12/21/24 Previous Rx's ?Medication ?Instructions ?Recorded furosemide 40 mg tablet 40 mg PO DAILY 30 days #30 tabs 07/04/23 fluticasone fur. 100 mcg-umeclid 1 inh inhalation DAILY #60 ea 08/21/23 62.5 mcg-vilant 25 mcg inhalat.powder (Trelegy Ellipta) amlodipine 10 mg tablet 10 mg PO DAILY #60 tabs 10/10/23 levofloxacin 750 mg tablet 750 mg PO DAILY #5 tabs 10/25/24 Allergies Allergy/AdvReac Type Severity Reaction Status Date / Time No Known Allergies Allergy Verified 12/21/24 08:12 [facility]: Medical History (Updated 02/12/25 @ 15:12 by Talita Lopez MD) Heart failure with improved ejection fraction (HFimpEF) Bradycardia Hyperkalemia Anemia Acute diverticulitis Heart block AV third degree Obesity hypoventilation syndrome Hyperkalemia Morbid obesity Acute respiratory failure with hypoxia and hypercapnia Shortness of breath Acute kidney injury Chronic CHF (congestive heart failure) Hypokalemia Hypomagnesemia Cardiomyopathy Torsades de pointes Diarrhea Takotsubo cardiomyopathy Gastritis Blood in stool Acute HFrEF (heart failure with reduced ejection fraction) HFrEF (heart failure with reduced ejection fraction) Stress-induced cardiomyopathy Diabetes Hypertension Non-ST elevation HI (NSTEMI) History of cerebrovascular accident COPD (chronic obstructive pulmonary disease) Hypertension Depression with anxiety History of CHF (congestive heart failure) History of GI bleed GERD (gastroesophageal reflux disease) Diabetes CVA (cerebral vascular accident) COPD (chronic obstructive pulmonary disease) Carpal tunnel syndrome on both sides Opioid contract exists Encounter for long-term use of opiate analgesic Chronic radicular low back pain Smokeless tobacco use Low back pain Surgical History History of esophagogastroduodenoscopy (EGD) (~11/2020) History of colonoscopy (~11/2020) H/O knee surgery History of knee replacement History of lumbar surgery Also history of spinal cord stimulator, currently not functioning History of shoulder surgery Family History Other CAD (coronary artery disease) Hypertension Stroke Denies family history of Anesthesia complication Bleeding disorder Social History Smoking and tobacco/nicotine status: former use of tobacco/nicotine Quit status (tobacco/nicotine): has quit using Year quit tobacco: 2012 Former quit date comment: 2ppd X 48 years Alcohol intake: never Substance/Drug Use: never Housing: Retirement Physical Exam Narrative: EXAM NARRATIVE: General: Alert, no acute distress. Skin: Warm, dry. Head: Normocephalic, atraumatic. Neck: Supple, trachea midline. Eye: Extraocular movements are intact. Ears, nose, mouth and throat: Oral mucosa moist. Cardiovascular: Regular rate and rhythm, Normal peripheral perfusion. Respiratory: coarse, scattered wheeze, mild increased wob. tachypnea, breath sounds are equal, Symmetrical chest wall expansion. Gastrointestinal: Soft, Nontender, Non distended Musculoskeletal: Normal ROM, no deformity. Neurological: Alert and oriented, No focal neurological deficit observed. Psychiatric: Cooperative, appropriate mood & affect. Course Vital Signs: Vital signs: Vital Signs Temperature 98.7 F 02/12/25 12:35 Pulse Rate 74 02/12/25 13:09 Respiratory Rate 22 H 02/12/25 13:09 Blood Pressure 170/81 02/12/25 12:35 Pulse Oximetry 94 02/12/25 13:09 Oxygen Delivery Me thod Nasal Cannula 02/12/25 13:09 Oxygen Flow Rate 4 02/12/25 13:09 MDM - SOB/Dyspnea Medical Decision Making Differential diagnosis for patient with shortness of breath includes but is not limited to and based on the above HPI, review of systems and physical exam: Pneumonia. Bronchitis. Asthma or COPD with acute exacerbation. Acute coronary syndrome / HI. Pulmonary embolism. Anxiety. Congestive heart failure. Viral infections including influenza and Covid-19. Atrial fibrillation. Anxiety. Pleural effusion. Pneumothorax. Orders placed to evaluate differential diagnosis based on the above differential, HPI and physical exam EKG: Time 1258. Rate 72. Ectopic atrial rhythm. No ST-T changes, PVCs, normal RI & QRS intervals, This was reviewed and interpreted by myself the ER physician Chest x-ray: Mild bibasilar opacities. This was reviewed and interpreted by myself the emergency room physician. I also reviewed the radiology report. AB.4 with O2 sat of 93% on 4 L nasal cannula Lab Review: Laboratory results were reviewed and interpreted by myself the emergency room physician. Leukocytosis with white count of 20,000. This may be secondary to recent steroids but given cough and pneumonia I think this would indicate a reaction to infection. BUN slightly elevated at 26 with a normal creatinine. Urinalysis is negative for infection. CTA chest with PE protocol: No PE. Multifocal pulmonary infiltrates. This was reviewed and interpreted by myself the emergency room physician. I also reviewed the radiology report. I reviewed the patient's medical record. Reexamination: Patient still with some wheeze but work of breathing has improved. She says she feels somewhat better. She continues to have a wet cough. She is asking to eat. She is still requiring 4 to 5 L nasal cannula Consultation: I spoke with Dr. Angeles who is on-call for the hospital service who agrees to admission. Assessment and plan: Multifocal pneumonia Acute on chronic hypoxemic respiratory failure COPD with acute exacerbation ?IV Solu-Medrol and multiple updrafts given. - possible sepsis. 250 cc normal saline bolus. Patient with history of CHF and is hypertensive. At this point she is not definitively septic so limited fluid administration. -Broad-spectrum antibiotics were administered. Patient recently was given antibiotics and steroids so I am placing her on broad-spectrum antibiotics. Zyvox and meropenem given. -Sepsis quality measures. -Lactic acid with a reflex was ordered. -Blood cultures were ordered. -I discussed the patient with the hospitalist on-call who is admitting the patient. - Discussed findings and plan with patient. Answered any questions. - All laboratory values were reviewed and interpreted personally by myself, the ER physician - All imaging was reviewed and interpreted personally by myself, the ER physician. - Evaluation and treatment of this problem were appropriate in the emergency setting Critical Care: -I spent a total of >35 minutes of critical care time managing the patient, independent of any other practitioner. -The time involved in the performance of separately reportable procedures was not counted towards critical care time. Lab Data 02/12/25 13:00 02/12/25 13:00 Labs/Radiology: Radiology Impressions Chest X-Ray 02/12/25 12:41 IMPRESSION: Mild bibasilar opacities. Chest CTA 02/12/25 13:57 IMPRESSION: No evidence of embolus. Multifocal pulmonary infiltrates. Laboratory Results WBC 20.23 10^3/uL (3.29-11.43) H 02/12/25 13:00 RBC 4.25 10^6/uL (3.85-5.65) 02/12/25 13:00 Hgb 10.70 g/dL (11.27-16.99) L 02/12/25 13:00 Hct 36.7 % (36-47) 02/12/25 13:00 MCV 86.4 fl (85-98) 02/12/25 13:00 MCH 25.2 pg (27-33) L 02/12/25 13:00 MCHC 29.2 g/dL (30-55) L 02/12/25 13:00 RDW 16.0 % (12.1-15.1) H 02/12/25 13:00 Plt Count 420 10^3/cmm (157-399) H 02/12/25 13:00 MPV 8.7 fL (7.4-10.4) 02/12/25 13:00 Neut % (Auto) 89.7 % 02/12/25 13:00 Lymph % (Auto) 5.7 % 02/12/25 13:00 [place] % (Auto) 2.7 % 02/12/25 13:00 Eos % (Auto) 0.0 % 02/12/25 13:00 Baso % (Auto) 0.4 % 02/12/25 13:00 Neut # (Auto) 18.15 10^3/uL (1.8-7.7) H 02/12/25 13:00 Lymph # (Auto) 1.2 10^3/uL (0.8-4.8) 02/12/25 13:00 [place] # (Auto) 0.6 10^3/uL (0.2-0.9) 02/12/25 13:00 Eos # (Auto) 0.0 10^3/uL (0.0-0.8) 02/12/25 13:00 Baso # (Auto) 0.1 10^3/uL (0.0-0.1) 02/12/25 13:00 Nucleated RBC % (auto) 0 % 02/12/25 13:00 Nucleated RBCs # 0.0 /100WBC 02/12/25 13:00 Specimen Type Arterial 02/12/25 12:45 Sample Site Radial, right 02/12/25 12:45 ABG pH 7.42 (7.35-7.45) 02/12/25 12:45 ABG pCO2 55.5 mmHg (35-45) H 02/12/25 12:45 ABG pO2 70.0 mmHg (80.0-100.0) L 02/12/25 12:45 ABG PO2/FiO2 Ratio 194 02/12/25 12:45 ABG HCO3 36.1 mmol/L (22-26) H 02/12/25 12:45 ABG O2 Saturation 94.6 02/12/25 12:45 ABG Base Excess 9.9 mmol/L (-2.0-2.0) H 02/12/25 12:45 Cornel Test Pos 02/12/25 12:45 A-a O2 Gradient 15.5 mmHg (5-10) H 02/12/25 12:45 Hematocrit 34.4 % (37-47) L 02/12/25 12:45 Hgb O2 Saturation 92.8 % (95-100) L 02/12/25 12:45 Carboxyhemoglobin 1.2 %THgb (0.4-20.1) 02/12/25 12:45 Methemoglobin 0.7 % (0.4-1.5) 02/12/25 12:45 Total Hemoglobin 11.2 g/dL (12-16) L 02/12/25 12:45 Sodium 140.0 mmol/L (131-143) 02/12/25 12:45 Potassium 4.6 mmol/L (3.5-5.0) 02/12/25 12:45 Glucose 316.0 mg/dL (70-115) H 02/12/25 12:45 Ionized Calcium 1.3 mmol/L (1.1-1.4) 02/12/25 12:45 O2 Delivery Device Nc 02/12/25 12:45 O2 Liters/Min 4.0 % 02/12/25 12:45 FiO2 36.0 % 02/12/25 12:45 Operations Manager/Coordinator ID Broma 02/12/25 12:45 Sodium 141 mmol/L (136-145) 02/12/25 13:00 Potassium 5.0 mmol/L (3.5-5.1) 02/12/25 13:00 Chloride 96 mmol/L (98-107) L 02/12/25 13:00 Carbon Dioxide 32 mmol/L (22-29) H 02/12/25 13:00 Anion Gap 18.0 (5-19) 02/12/25 13:00 BUN 26 mg/dL (8-23) H 02/12/25 13:00 Creatinine 0.7 mg/dL (0.5-0.9) 02/12/25 13:00 GFR Calculation Not Reportable 02/12/25 13:00 Glucose 298 mg/dL (65-115) H 02/12/25 13:00 Calculated Osmolality 308 mOsm/kg (285-295) H 02/12/25 13:00 Lactic Acid 1.2 mmol/L (0.5-2.2) 02/12/25 13:00 Calcium 9.6 mg/dL (8.5-10.5) 02/12/25 13:00 Total Bilirubin 0.5 mg/dL (0.15-1.2) 02/12/25 13:00 AST 16 U/L (0-32) 02/12/25 13:00 ALT 17 U/L (0-33) 02/12/25 13:00 Alkaline Phosphatase 99 U/L (35-105) 02/12/25 13:00 Troponin T Baseline 23 ng/L (0-10) H 02/12/25 13:00 C-Reactive Protein 129.9 mg/L (0.0-4.9) H 02/12/25 13:00 NT-Pro-B Natriuret Pep 862 pg/mL (0-450) H 02/12/25 13:00 Total Protein 6.9 g/dL (6.6-8.7) 02/12/25 13:00 Albumin 3.4 g/dL (3.5-5.2) L 02/12/25 13:00 Globulin 3.5 g/dL (1.3-4.6) 02/12/25 13:00 Procalcitonin 0.22 ng/mL (0-0.5) 02/12/25 13:00 Urine Color Yellow (Yellow) 02/12/25 Unknown Urine Appearance Clear (CLEAR) 02/12/25 Unknown Urine pH 5.0 (5-7) 02/12/25 Unknown Ur Specific [place] 1.013 (1.005-1.030) 02/12/25 Unknown Urine Protein 2+ (Negative) A 02/12/25 Unknown Urine Glucose (UA) Negative (Normal) 02/12/25 Unknown Urine Ketones Negative (Negative) 02/12/25 Unknown Urine Blood Negative (Negative) 02/12/25 Unknown Urine Nitrate Negative (Negative) 02/12/25 Unknown Urine Bilirubin Negative (Negative) 02/12/25 Unknown Urine Urobilinogen 0.2 mg/dL (Negative) 02/12/25 Unknown Ur Leukocyte Esterase Negative (Negative) 02/12/25 Unknown Urine RBC 0-2 /hpf (0-2) 02/12/25 Unknown Urine WBC 0-5 /hpf (0-5) 02/12/25 Unknown Ur Squamous Epith Cells 0-5 /hpf (0-5) 02/12/25 Unknown Amorphous Sediment Not Reportable 02/12/25 Unknown Urine Bacteria None seen /hpf (NONE) 02/12/25 Unknown Hyaline Casts 8.26 /lpf 02/12/25 Unknown All radiology interpretation(s) finalized by discharge Discharge Plan Discharge Patient Disposition: Admitted As Inpatient Clinical Impression: Multifocal pneumonia, Acute on chronic hypoxic respiratory failure, COPD with acute exacerbation Condition: Stable Coding Level of Care Code ED [employer] for Lea [employer]ero
[2025-02-12 13:15] LABS: Hematocrit 36.7 % (36-47); Hemoglobin 10.70 g/dL (11.27-16.99); Mean Corpuscular HGB Conc 29.2 g/dL (30-55); Mean Corpuscular Hemoglobin 25.2 pg (27-33); Mean Corpuscular Volume 86.4 fl (85-98); Nucleated Red Blood Cells % 0 %; Platelet Count 420 10^3/cmm (157-399); Red Blood Count 4.25 10^6/uL (3.85-5.65); White Blood Count 20.23 10^3/uL (3.29-11.43)
--- NOTE | 2025-02-12 13:22 | PC.PHAR ---
Addendum entered by Ashley Lowe 02/12/25 14:46: Phoned at 2:30 and 2:45 to revisit med list. Original Note: Pt is from [facility]-paperwork sent includes face sheet and dnr but no med list. Left a message at 1:23pm for med list.
[2025-02-12] MEDS: methylPREDNISolone sod succ 125 mg/2 mL INJ IVP (13:30)
[2025-02-12 13:33] LABS: Troponin(5th) Baseline 23 ng/L (0-10)
[2025-02-12 13:35] LABS: Lactic Sepsis W/Reflex 1.2 mmol/L (0.5-2.2)
[2025-02-12 13:43] LABS: NT Pro B Type Natriuretic Pept 862 pg/mL (0-450); Procalcitonin 0.22 ng/mL (0-0.5)
[2025-02-12 13:55] LABS: Alanine Aminotransferase 17 U/L (0-33); Albumin Level 3.4 g/dL (3.5-5.2); Alkaline Phosphatase 99 U/L (35-105); Aspartate Amino Transferase 16 U/L (0-32); Blood Urea Nitrogen 26 mg/dL (8-23); Calcium 9.6 mg/dL (8.5-10.5); Carbon Dioxide 32 mmol/L (22-29); Chloride 96 mmol/L (98-107); Creatinine Clr Calc Pharmacy 72.5495; Globulin 3.5 g/dL (1.3-4.6); Glucose 298 mg/dL (65-115); Osmolality Calculated 308 mOsm/kg (285-295); Sodium 141 mmol/L (136-145); Total Protein 6.9 g/dL (6.6-8.7)
--- NOTE | 2025-02-12 13:57 | CTR_ITS ---
PROCEDURE INFORMATION: Exam: CTA Chest With Contrast Exam date and time: 02/12/2025 2:07 PM Age: 79 years old Clinical indication: Hyperventilation and shortness of breath; Additional info: Hypoxemia, SOB TECHNIQUE: Imaging protocol: Computed tomographic angiography of the chest with contrast. Exam focused on the arteries. 3D rendering (Not supervised by radiologist): MIP and/or 3D reconstructed images were created by the technologist. Radiation optimization: All CT scans at this facility use at least one of these dose optimization techniques: automated exposure control; mA and/or kV adjustment per patient size (includes targeted exams where dose is matched to clinical indication); or iterative reconstruction. Contrast material: OMNIPAQUE 350; Contrast volume: 70 ml; Contrast route: INTRAVENOUS (IV); COMPARISON: CT angio chest w abd pel w con 06/26/2023 2:20 PM RADIATION DOSE METRICS: Total DLP (mGy-cm): 455.88 FINDINGS: Pulmonary arteries: No evidence of pulmonary embolus. Aorta: Unremarkable. No aortic aneurysm. No aortic dissection. Lungs: Scattered bilateral pulmonary infiltrates, predominantly tree-in-bud in appearance but also with slightly larger areas of infiltrate. Pleural spaces: Unremarkable. No pneumothorax. No pleural effusion. Heart: Cardiomegaly. Lymph nodes: Unremarkable. No enlarged lymph nodes. Bones/joints: Unremarkable. No acute fracture. Soft tissues: Unremarkable. CT/CT angio chest PE protcl [id number] IMPRESSION: No evidence of embolus. Multifocal pulmonary infiltrates.
[2025-02-12 14:00] LABS: Anion Gap 18.0 (5-19); Potassium 5.0 mmol/L (3.5-5.1)
[2025-02-12 14:07] LABS: Glucose Urine UA Negative (Normal); Nitrate Urine Negative (Negative); Specific Gravity, Urine 1.013 (1.005-1.030)
[2025-02-12] MEDS: iohexol 350 mg/mL 500 mL Btl (per mL) IV (14:11)
--- NOTE | 2025-02-12 15:28 | USCV_ITS ---
Lauren Jose Age: 79 Gender: F : 1945 Exam Date: 02/12/2025 16:06 Ordering Phys: Riky Angeles MD Technologist: Cornell Marquez Exam Location: [facility] [place] Indication: chf BP: 170 / 81 HR: Rhythm: Other Technical Quality: Adequate MEASUREMENTS (Male / Female) Normal Values 2D ECHO LV Diastolic Diameter PLAX 5.5 cm 4.2 - 5.9 / 3.9 - 5.3 cm IVS Diastolic Thickness 1.4 cm 0.6 - 1.0 / 0.6 - 0.9 cm IVS Systolic Thickness 1.7 cm LVPW Diastolic Thickness 1.6 cm 0.6 - 1.0 / 0.6 - 0.9 cm LVPW Systolic Thickness 1.8 cm LVOT Diameter 2.0 cm LV Ejection Fraction 2D Teich 66.8 % LV Ejection Fraction MOD 4C 65.0 % LV Ejection Fraction MOD 2C 70.8 % LV Ejection Fraction 2C AL 71.3 % LA Diameter 3.6 cm RA Systolic Volume 4C AL 46.8 ml RA Systolic Volume 4C MOD 48.1 ml LA Sys Volume AL 54.6 cm cubed LA Sys Volume Index AL 24.1 cm cubed/m squared Aorta at Sinotubular Diameter 1.7 cm IVC Diameter 1.6 cm M-MODE LA Ao Ratio MM 2.2 AV Cusp Separation MM 0.8 cm FINDINGS Left Ventricle Right Ventricle Right Atrium Left Atrium Mitral Valve Aortic Valve Tricuspid Valve Pulmonic Valve Pericardium Aorta IVC CONCLUSIONS Limited echocardiogram performed to assess LV systolic function. LV systolic function is normal with EF of 60-65%. No regional wall motion abnormalities seen Brenden Chowdhury MD (Electronically Signed) Final Date: 12 February 2025 17:27 S
[2025-02-12 15:32] LABS: Troponin 5 2HR 21.05 ng/L (0-10)
[2025-02-12 15:33] LABS: Troponin 5 2HR Delta -1.95 ABS# (0-10)
[2025-02-12] MEDS: linezolid premix 600 MG/300 ML PREMIX 300 MG IV (15:34)
--- NOTE | 2025-02-12 15:55 | PM.HP ---
Providers/Chief Complaint Admitting Physician: Riky Angeles MD Primary Care Provider: Nazia Jha Chief Complaint: sob History of Present Illness Lauren Jose is a 79 year old female with past medical history of hypertension, type 2 diabetes mellitus, COPD, congestive heart failure with known EF of 30 to 45% in the past improved to 65% during most recent echocardiogram from earlier this year, history of torsades post CPR 1 cycle in 2020, half-way resident presents to the ER today because of difficulty in breathing, shortness of breath, cough increasing progressively over the last 3 to 4 weeks. Patient at baseline is on 2 L of oxygen supplementation but lately has been requiring higher oxygen to maintain saturation over 88. Today morning she was found to be saturating in low 80s to high 70s on her baseline hence she was sent to the ER. Patient states she is bothered by cough and expectoration which has been increasing for last few weeks. Shortness of breath gets worse on minimal exertion. At baseline patient is able to walk around with a walker. Also complains of difficulty breathing on laying down. Denies any fever. Review of Systems General: Reports: 10 or more systems reviewed and unremarkable except in HPI and below Const: Denies: fever(s), chills, body aches, change in appetite, change in weight, malaise, night sweats, diaphoresis, change in sleep pattern, daytime sleepiness or snoring Eyes: Denies: change in vision, blurry vision, photophobia, eye discomfort or eye discharge ENMT: Denies: throat pain, enlarged tonsils, hoarseness, mouth pain, oral sores, dry mouth, tinnitus, nasal congestion or post nasal drip Card: Denies: chest pain, palpitations, irregular heart rhythm, edema, swelling of feet/ankles, lightheadedness, syncope, pre-syncope, dyspnea on exertion, orthopnea, leg pain with exertion or acrocyanosis Resp: Denies: dyspnea, productive cough, non-productive cough, wheezing, stridor, pain on inspiration, change in phlegm color, hemoptysis or chest congestion GI: Denies: abdominal pain, nausea, vomiting, hematemesis, coffee ground emesis, dysphagia, heartburn, diarrhea, constipation, bloating, GI cramping, change in bowel habits, pain on defecation, hematochezia or melena : Denies: flank pain, dysuria, urinary frequency, urinary urgency, urinary hesitancy, nocturia or hematuria Musc: Denies: neck pain, back pain, extremity pain, joint pain, joint swelling, joint redness, joint stiffness or limited range of motion Neuro: Denies: headache(s), numbness in extremities, weakness in extremities, sensory changes, lack of coordination, difficulty walking, frequent falls, dizziness, vertigo, confusion, Slurred speech present, difficulty communicating thoughts or seizure-like activity Psych: Denies: anxiety, depression, mood swings, panic attacks, hopelessness or irritability Endo: Denies: polyuria, polydipsia, tired all the time, cold intolerance, excessive sweating, flushing or heat intolerance Lavelle/Lymph: Denies: easy bruising or easy bleeding All/Imm: Denies: tongue swelling, facial swelling or acute wheezing Medications/Allergies Home Medications ?Medication ?Instructions ?Recorded ?Confirmed ?Last Taken ?Type atorvastatin 20 mg tablet (Lipitor) 20 mg PO BEDTIME 09/30/19 02/12/25 02/11/25 History acetaminophen 325 mg tablet 325 mg PO QID Pain 08/22/20 02/12/25 02/12/25 History (Tylenol) buspirone 10 mg tablet 10 mg PO BID 12/13/20 02/12/25 02/12/25 History famotidine 20 mg tablet 20 mg PO BID 06/26/23 02/12/25 02/12/25 History furosemide 40 mg tablet 40 mg PO DAILY 30 days #30 tabs 07/04/23 02/12/25 02/12/25 Rx albuterol sulfate 90 mcg/actuation 2 puff inhalation BID PRN 08/21/23 02/12/25 02/12/25 History aerosol inhaler Shortness Of Breath hydralazine 50 mg tablet 50 mg PO QID 08/21/23 02/12/25 02/12/25 History bisacodyl 10 mg rectal suppository 10 mg FL DAILY PRN Constipation 10/08/23 02/12/25 Unknown History camphor-menthol 0.2 %-3.5 % 1 applic topical TID PRN Pain 10/08/23 02/12/25 12/04/24 History topical gel insulin glargine-yfgn 100 unit/mL 20 unit SUBCUT BEDTIME 10/08/23 02/12/25 02/11/25 History (3 mL) subcutaneous pen isosorbide mononitrate 30 mg 30 mg PO DAILY 10/08/23 02/12/25 02/12/25 History tablet,extended release 24 hr levothyroxine 50 mcg tablet 50 mcg PO QAM 10/08/23 02/12/25 02/12/25 History magnesium hydroxide 400 mg/5 mL 30 ml PO DAILY PRN Constipation 10/08/23 02/12/25 08/21/24 History oral suspension (Milk of Magnesia) magnesium oxide 200 mg PO BID 10/08/23 02/12/25 02/12/25 History sodium phosphates 19 gram-7 118 ml FL DAILY PRN Constipation 10/08/23 02/12/25 Unknown History gram/118 mL enema (Fleet Enema) amlodipine 10 mg tablet 10 mg PO DAILY #60 tabs 10/10/23 02/12/25 02/12/25 Rx dicyclomine 20 mg tablet 20 mg PO BID PRN stomach discomfort 10/27/23 02/12/25 Unknown History carvedilol 6.25 mg tablet 6.25 mg PO BID 10/23/24 02/12/25 02/12/25 History guaifenesin 100 mg/5 mL oral liquid 200 mg PO Q4H PRN Cough 10/23/24 02/12/25 02/09/25 History lisinopril 20 mg tablet 20 mg PO DAILY 10/23/24 02/12/25 02/12/25 History loratadine 10 mg tablet 10 mg PO DAILY 10/23/24 02/12/25 02/12/25 History ondansetron 4 mg disintegrating 4 mg PO Q4H PRN Nausea 10/23/24 02/12/25 02/02/25 History tablet duloxetine 60 mg capsule,delayed 60 mg PO DAILY 12/21/24 02/12/25 02/12/25 History release (Cymbalta) tizanidine 2 mg capsule 2 mg PO Q8H PRN Muscle Spasm 12/21/24 02/12/25 02/01/25 History albuterol sulfate 2.5 mg/3 mL 2.5 mg inhalation QID PRN Wheezing 02/12/25 02/12/25 02/12/25 History (0.083 %) solution for nebulization arformoterol 15 mcg/2 mL solution 15 mcg inhalation BID 02/12/25 02/12/25 02/12/25 History for nebulization budesonide 1 mg/2 mL suspension 1 mg inhalation BID 02/12/25 02/12/25 02/12/25 History for nebulization dulaglutide 1.5 mg/0.5 mL 1.5 mg SUBCUT Q7D 02/12/25 02/12/25 02/09/25 History subcutaneous pen injector (Trulicity) prednisone 20 mg tablet 40 mg PO DAILY x5days 02/12/25 02/12/25 02/12/25 History revefenacin 175 mcg/3 mL solution 175 mcg inhalation DAILY 02/12/25 02/12/25 02/12/25 History for nebulization (Jazminpelri) tramadol 50 mg tablet 50 mg PO Q4H PRN Pain 02/12/25 02/12/25 02/11/25 History zinc oxide 1 applic topical PRN may keep at 02/12/25 02/12/25 Unknown History bedside Allergies Allergy/AdvReac Type Severity Reaction Status Date / Time No Known Allergies Allergy Verified 12/21/24 08:12 PFSH Acute PFSH: Medical History (Updated 02/12/25 @ 18:04 by Riky Angeles MD) Heart failure with improved ejection fraction (HFimpEF) Bradycardia Hyperkalemia Anemia Acute diverticulitis Heart block AV third degree Obesity hypoventilation syndrome Hyperkalemia Morbid obesity Acute respiratory failure with hypoxia and hypercapnia Shortness of breath Acute kidney injury Chronic CHF (congestive heart failure) Hypokalemia Hypomagnesemia Torsades de pointes Diarrhea Takotsubo cardiomyopathy Gastritis Blood in stool Acute HFrEF (heart failure with reduced ejection fraction) HFrEF (heart failure with reduced ejection fraction) Stress-induced cardiomyopathy Diabetes Hypertension Non-ST elevation AR (NSTEMI) History of cerebrovascular accident COPD (chronic obstructive pulmonary disease) Hypertension Depression with anxiety History of GI bleed GERD (gastroesophageal reflux disease) Diabetes CVA (cerebral vascular accident) COPD (chronic obstructive pulmonary disease) Carpal tunnel syndrome on both sides Opioid contract exists Encounter for long-term use of opiate analgesic Chronic radicular low back pain Smokeless tobacco use Low back pain Surgical History History of esophagogastroduodenoscopy (EGD) (~11/2020) History of colonoscopy (~11/2020) H/O knee surgery History of knee replacement History of lumbar surgery Also history of spinal cord stimulator, currently not functioning History of shoulder surgery Family History Other CAD (coronary artery disease) Hypertension Stroke Denies family history of Anesthesia complication Bleeding disorder Social History Smoking and tobacco/nicotine status: former use of tobacco/nicotine Quit status (tobacco/nicotine): has quit using Year quit tobacco: 2012 Former quit date comment: 2ppd X 48 years Alcohol intake: never Substance/Drug Use: never Housing: Assisted Vitals/I&O/Wt Last Vital Signs Temp 98.7 F 02/12/25 12:35 Pulse 74 02/12/25 13:09 Resp 22 H 02/12/25 13:09 BP 170/81 02/12/25 12:35 Pulse Ox 94 02/12/25 13:09 O2 Del Method Nasal Cannula 02/12/25 13:09 O2 Flow Rate 4 02/12/25 13:09 02/12/25 02/12/25 02/12/25 06:59 14:59 22:59 Intake Total 0 / 0 Balance 0 / 0 Weight last 48 hrs Weight 106.141 kg Physical Exam Narrative: General: In acute distress with shortness of breath, AO x 3, tachypneic on nasal cannula HEENT: PERRLA, pupils bilaterally equal and reactive Chest: Normal vesicular breath sounds, no added sounds, equal good air entry bilaterally CVS: S1-S2 regular, no murmurs, no tachycardia, no gallops, no rubs Abdomen: Soft, nontender, no organomegaly, bowel sounds present Neuro: No focal deficits, no facial deformity, AO x3, power 5/5 in all limbs Data 02/12/25 13:00 02/12/25 13:00 Micro: Microbiology 02/12/25 13:00 Blood Culture - Preliminary Blood SPECIMEN COLLECTED 02/12/25 13:00 Blood Culture - Preliminary Blood SPECIMEN COLLECTED A&P Assessment and plan 1. Acute on chronic hypoxic respiratory failure: 2. Chronic hypercapnic respiratory failure: 3. COPD with acute exacerbation: 4. Heart failure with improved ejection fraction (HFimpEF): 5. Hypertension: 6. Community acquired pneumonia: Plan: Acute on chronic hypoxic respiratory failure: Chronic hypercapnic failure: Most likely in setting of COPD exacerbation along with some concerns for community-acquired pneumonia and bronchitis. Cannot rule out congestive heart failure. Patient does have history of systolic CHF with an EF down to 38% which has improved to 65% on most recent echocardiogram. Appreciate CT head in the ER. Check sputum culture, trend procalcitonin, blood culture, urinalysis, bacterial antigen, proBNP. Empirically start patient on IV vancomycin and Zosyn. Patient has history of MRSA pneumonia in the past. De-escalate as per culture sensitivity. DuoNeb every 6 hour, Pulmicort twice daily. Oxygen supplementation keeping saturation over Solu-Medrol 40 mg every 6 hour. Tessalon Perles 3 times daily, Robitussin as needed. Check limited echocardiogram. Cycle troponin, check proBNP. IV Lasix 40 mg one-time. Will redose further Lasix depending on fluid status. Fluid restriction to less than 1500 cc. Hypertension: Goal blood pressure less than 140/90 mmHg. For now continue with home dose of carvedilol 6.25 mg twice daily, hydralazine at a dose of 50 mg 3 times daily(patient takes 50 mg 4 times daily at home), Imdur 30 mg daily, amlodipine 10 mg daily. Hold off on dose of lisinopril 20 mg daily for now. Uptitrate as per goal blood pressure. Type 2 diabetes mellitus: Insulin sliding scale at low-dose protocol. Check A1c. Continue with home dose of Lantus 20 units nightly. Continue other chronic home medications including BuSpar, duloxetine, statin, levothyroxine. CODE STATUS: Discussed in detail with the patient. Daughter was the DPOA. Does not want any kind of resuscitation. DNR/DNI. Heparin 5000 every 12 hourly for DVT prophylaxis Protonix for PUD prophylaxis Carb consistent cardiac diet Physical therapy. Out of bed to chair. PDMP PDMP Reviewed: Not Reviewed Attestations Medical Necessity Statement*: Admission for more than 2 midnights for management of acute hypoxic respiratory failure in setting of chronic hypercapnic respiratory failure, COPD exacerbation, community-acquired pneumonia in a patient with history of CHF, half-way resident Diagnoses Acute on chronic hypoxic respiratory failure J96.21 Chronic hypercapnic respiratory failure J96.12 COPD with acute exacerbation J44.1 Heart failure with improved ejection fraction (HFimpEF) I50.20 Hypertension I10 Community acquired pneumonia J18.9
--- NOTE | 2025-02-12 16:52 | ECG_ITS ---
[facility]: 2025-02[facility]12 Pat Name: Lauren Jose Department: Room: 276 Gender: Female Program Developer: : 1945 Requested By: Talita Gabriel Order Number: [id number] Espinoza MD: Talon Salguero M.D. Measurements Intervals [place] Rate: 84 P: -35 AR: 206 QRS: 9 QRSD: 126 T: 95 QT: 385 QTc: 457 Interpretive Statements SINUS RHYTHM WITH FREQUENT SUPRAVENTRICULAR PREMATURE COMPLEXES ANTEROSEPTAL MYOCARDIAL INFARCTION , OF INDETERMINATE AGE [40+ ms Q WAVE IN V1-V4] Compared to ECG 02/12/2025 12:58:51 Ectopic atrial rhythm no longer present Myocardial infarct finding still present Electronically Signed On 02-15-2025 00:28:41 CDT by Talon Salguero M.D. [email or web address] [id number]
--- NOTE | 2025-02-12 18:15 | ECG_ITS ---
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 Measurements Intervals [place] Rate: 82 P: -4 SC: 201 QRS: 3 QRSD: 118 T: 83 QT: 381 QTc: 448 Interpretive Statements SINUS RHYTHM WITH OCCASIONAL SUPRAVENTRICULAR PREMATURE COMPLEXES POSSIBLE ANTERIOR MYOCARDIAL INFARCTION , OF INDETERMINATE AGE [30 ms Q WAVE IN V3/V4, OR R < 0.2 mV IN V4] Compared to ECG 02/12/2025 16:52:36 No significant changes Electronically Signed On 02-15-2025 00:28:24 CDT by Talon Salguero M.D. [email or web address] [id number]
[2025-02-12 18:49] LABS: Iron 13 ug/dL (37-145); Thyroid Stimulating Hormone 0.45 uIU/mL (0.27-4.20); Total Iron Binding Capacity 218 mcg/dl; Unsaturated Iron Binding 205 ug/dL (112-347); Vitamin B12 362 pg/mL (232-1245)
[2025-02-12 18:50] LABS: Lactic Sepsis W/Reflex 1.2 mmol/L (0.5-2.2)
[2025-02-12 19:02] LABS: NT Pro B Type Natriuretic Pept 783 pg/mL (0-450); Procalcitonin 0.16 ng/mL (0-0.5)
[2025-02-12 19:18] LABS: Troponin 5 6HR 19.48 ng/L (0-10)
[2025-02-12 19:33] LABS: Troponin 5 6HR Delta -3.52 ng/L (0-12)
[2025-02-12] MEDS: methylPREDNISolone sod succ 40 mg/mL INJ IVP ×2 (19:47→23:52)
[2025-02-12] MEDS: pantoprazole 40 mg SDV IVP (19:48)
[2025-02-12] MEDS: heparin 5,000 unit/mL INJ 1 mL 5000 UNIT SUBCUT (19:48)
[2025-02-12 20:38] LABS: Estmated Average Glucose 146; Hemoglobin A1C 6.7 % (4.0-6.0)
[2025-02-12] MEDS: ATORVASTATIN 10 MG TABLET 20 MG PO (21:23)
[2025-02-12] MEDS: insulin glargine 100 units/1 mL 20 UNIT SUBCUT (21:24)
[2025-02-12] MEDS: piperacillin-tazobactam 3.375 GM in sodium chloride 0.9% (plus) 50 ML IV (23:52)
[2025-02-13] VITALS (15 sets, daily range): BP systolic 142–188; BP diastolic 73–98; PULSE 76–92; RESP 18–20; TEMP 36.5–37; O2SAT 90–98
[2025-02-13 03:06] LABS: Hematocrit 39.1 % (36-47); Hemoglobin 11.60 g/dL (11.27-16.99); Mean Corpuscular HGB Conc 29.7 g/dL (30-55); Mean Corpuscular Hemoglobin 25.4 pg (27-33); Mean Corpuscular Volume 85.7 fl (85-98); Nucleated Red Blood Cells % 0 %; Platelet Count 495 10^3/cmm (157-399); Red Blood Count 4.56 10^6/uL (3.85-5.65); White Blood Count 17.15 10^3/uL (3.29-11.43)
[2025-02-13 03:28] LABS: Cholesterol 150 mg/dL (0-200); HDL Cholesterol 62 mg/dL (60-100); Triglycerides 165 mg/dL (0-150)
[2025-02-13 03:30] LABS: Alanine Aminotransferase 17 U/L (0-33); Albumin Level 3.5 g/dL (3.5-5.2); Alkaline Phosphatase 108 U/L (35-105); Anion Gap 19.7 (5-19); Aspartate Amino Transferase 12 U/L (0-32); Blood Urea Nitrogen 25 mg/dL (8-23); Calcium 10.0 mg/dL (8.5-10.5); Carbon Dioxide 31 mmol/L (22-29); Chloride 98 mmol/L (98-107); Creatinine Clr Calc Pharmacy 72.5495; Globulin 4.5 g/dL (1.3-4.6); Glucose 165 mg/dL (65-115); Magnesium 2.2 mg/dL (1.7-2.3); Osmolality Calculated 306 mOsm/kg (285-295); Potassium 4.7 mmol/L (3.5-5.1); Sodium 144 mmol/L (136-145); Total Protein 8.0 g/dL (6.6-8.7)
[2025-02-13 03:34] LABS: Procalcitonin 0.15 ng/mL (0-0.5)
[2025-02-13] MEDS: piperacillin-tazobactam 3.375 GM in sodium chloride 0.9% (plus) 50 ML IV ×3 (05:28→23:34)
[2025-02-13] MEDS: methylPREDNISolone sod succ 40 mg/mL INJ IVP ×3 (05:29→23:35)
[2025-02-13] MEDS: FUROsemide 10 mg/mL SDV 4mL 40 MG IVP (09:29)
[2025-02-13] MEDS: heparin 5,000 unit/mL INJ 1 mL 5000 UNIT SUBCUT ×2 (09:29→20:40)
--- NOTE | 2025-02-13 10:08 | PC.CHAP ---
Pastoral Care Encounter/Spiritual Assessment Type of Contact [] Declined management consulting visit [] Patient/Family/Request visit [] Outpatient visit [] Follow-up visit [] Physician referral [] Code/Alert [] Routine visit [] Staff referral [] Actively dying [x] Patient sleeping [] Family support [] [] Out of room [] Palliative care [] [] Receiving care in room [] Pre-surgical visit [] Trauma [] Long length of stay [] ICU visit [] Other: Relational/Emotional Strength [] Patient feels connected with others/family/visitors/staff [] Distress [] Loneliness/isolation [] Abandonment Spirituality of Patient [] Person of Maria E [] Attends Jewish of their Maria E [] Believes in Prayer [] Reads Bible or Scientology materials [] There are Spiritual issues to be addressed Assistant Professor Of Art Interventions [] Prayer [] Active listening [] Non-anxious presence [] Spiritual/emotional support [] Crisis/trauma care [] Spiritual counseling [] Bereavement support [] Provided bereavement packet [] Provided Bible/devotional materials [] Provided toy/stuffed animal, coloring book to patient or family member [] Provided Communion [] Anointing/[place] [] Salvation [] Completed spiritual assessment [] Other: Impact on Illness or Injury [] Angry [] Fearful [] Anxious [] Often cries [] Exhaustion [] Unable to work [] Unable to attend methodist [] Unable to walk/stand [] Unable to read [] Unable to drive [] Unable to eat/drink [] Unable to sleep [] Unable to be with family [] Patient intubated [] Other: Summary Time spent with patient
--- NOTE | 2025-02-13 13:13 | P.PN_ITS ---
Subjective 2 Subjective: seen this am laying in bed just finished working with physical therapy Vitals/I&O/Wt Last Vital Signs Temp 97.7 F 02/13/25 11:46 Pulse 79 02/13/25 11:46 Resp 19 H 02/13/25 11:46 BP 188/84 02/13/25 11:46 Pulse Ox 96 02/13/25 11:46 O2 Del Method Nasal Cannula 02/13/25 11:46 O2 Flow Rate 3 02/13/25 08:03 FiO2 3 02/13/25 01:24 02/12/25 02/13/25 02/13/25 22:59 06:59 14:59 Intake Total 550 / 550 450 / 1000 720 / 720 Output Total 775 / 775 800 / 800 Balance 550 / 550 -325 / 225 -80 / -80 Weight last 48 hrs Weight 103.056 kg Weight 106.141 kg Weight 106.141 kg Physical Exam 2 Narrative: General: AOx 3 HEENT: PERRLA, pupils bilaterally equal and reactive Chest: Normal vesicular breath sounds, no added sounds, equal good air entry bilaterally CVS: S1-S2 regular, no murmurs, Abdomen: Soft, nontender, bowel sounds present Neuro: No focal deficits, no facial deformity, AO x3, Urinary Catheter Management: Dumont: Cath Placed During This Visit: yes Reason for Continuing Indwelling Catheter: Other Urinary Catheter Date of Insertion: 02/12/25 Urinary Catheter Time of Insertion: 17:30 Data 02/13/25 02:27 02/13/25 02:27 Micro: Microbiology 02/12/25 13:00 Blood Culture - Preliminary Blood NEGATIVE TO DATE 02/12/25 13:00 Blood Culture - Preliminary Blood NEGATIVE TO DATE 02/12/25 13:00 Gram Stain - Final Sputum - Expectorated Sputum Sputum Culture - Preliminary 02/12/25 Unknown Bacterial Antigens - Final Urine Kidney A&P Assessment and plan 1. Acute on chronic hypoxic respiratory failure: 2. Chronic hypercapnic respiratory failure: 3. COPD with acute exacerbation: 4. Heart failure with improved ejection fraction (HFimpEF): 5. Hypertension: 6. Community acquired pneumonia: Plan: Acute on chronic hypoxic respiratory failure: Chronic hypercapnic failure: Most likely in setting of COPD exacerbation along with some concerns for community-acquired pneumonia and bronchitis. Cannot rule out congestive heart failure. Patient does have history of systolic CHF with an EF down to 38% which has improved to 65% on most recent echocardiogram. Appreciate CT head in the ER. Check sputum culture, trend procalcitonin, blood culture, urinalysis, bacterial antigen, proBNP. Empirically start patient on IV vancomycin and Zosyn. Patient has history of MRSA pneumonia in the past. De-escalate as per culture sensitivity. DuoNeb every 6 hour, Pulmicort twice daily. Oxygen supplementation keeping saturation over Solu-Medrol 40 mg every 6 hour. Tessalon Perles 3 times daily, Robitussin as needed. Check limited echocardiogram. Cycle troponin, check proBNP. IV Lasix 40 mg one-time. Will redose further Lasix depending on fluid status. Fluid restriction to less than 1500 cc. Hypertension: Goal blood pressure less than 140/90 mmHg. For now continue with home dose of carvedilol 6.25 mg twice daily, hydralazine at a dose of 50 mg 3 times daily(patient takes 50 mg 4 times daily at home), Imdur 30 mg daily, amlodipine 10 mg daily. Hold off on dose of lisinopril 20 mg daily for now. Uptitrate as per goal blood pressure. Type 2 diabetes mellitus: Insulin sliding scale at low-dose protocol. Check A1c. Continue with home dose of Lantus 20 units nightly. Continue other chronic home medications including BuSpar, duloxetine, statin, levothyroxine. CODE STATUS: Discussed in detail with the patient. Daughter was the DPOA. Does not want any kind of resuscitation. DNR/DNI. Heparin 5000 every 12 hourly for DVT prophylaxis Protonix for PUD prophylaxis Carb consistent cardiac diet Physical therapy. Out of bed to chair. 02/13/2025 seen today continue mgmt per HnP continue azithromycin continue zosyn continue solumedrol but reduce dose to q12 hours leukocytosis probably reactive to steroids xray reviewed continue lasix 40 iv daily PDMP PDMP Reviewed: Not Reviewed Attestations 2 Medical Necessity Statement*: COPD exacerbation Diagnoses Acute on chronic hypoxic respiratory failure J96.21 Chronic hypercapnic respiratory failure J96.12 COPD with acute exacerbation J44.1 Heart failure with improved ejection fraction (HFimpEF) I50.20 Hypertension I10 Community acquired pneumonia J18.9
--- NOTE | 2025-02-13 13:39 | PHA.VACGOAL ---
Vancomycin Goal - Goal Vancomycin Goal:: 15-20 mg/L Vancomycin Indication:: Pneumonia - Therapy Day of therpy:: Day []of [] . Actual body weight (kg): 227 lb 3.2 oz - Data Labs: WBC 17.15 10^3/uL (3.29-11.43) H 02/13/25 02:27 RBC 4.56 10^6/uL (3.85-5.65) 02/13/25 02:27 Hgb 11.60 g/dL (11.27-16.99) 02/13/25 02:27 Hct 39.1 % (36-47) 02/13/25 02:27 MCV 85.7 fl (85-98) 02/13/25 02:27 MCH 25.4 pg (27-33) L 02/13/25 02:27 MCHC 29.7 g/dL (30-55) L 02/13/25 02:27 RDW 16.0 % (12.1-15.1) H 02/13/25 02:27 Sodium 144 mmol/L (136-145) 02/13/25 02:27 Potassium 4.7 mmol/L (3.5-5.1) 02/13/25 02:27 Chloride 98 mmol/L (98-107) 02/13/25 02:27 Carbon Dioxide 31 mmol/L (22-29) H 02/13/25 02:27 Anion Gap 19.7 (5-19) H 02/13/25 02:27 BUN 25 mg/dL (8-23) H 02/13/25 02:27 Creatinine 0.7 mg/dL (0.5-0.9) 02/13/25 02:27 GFR Calculation Not Reportable 02/13/25 02:27 Treatment plan:: new consult Regimen:: 2000 MG LOADING DOSE GIVEN BY TELEPHARMACY CONTINUE 1500 MG Q12H
[2025-02-13] MEDS: ATORVASTATIN 10 MG TABLET 20 MG PO (20:40)
[2025-02-13] MEDS: pantoprazole 40 mg SDV IVP (20:40)
[2025-02-13] MEDS: insulin glargine 100 units/1 mL 20 UNIT SUBCUT (21:13)
[2025-02-14] VITALS (12 sets, daily range): BP systolic 128–177; BP diastolic 76–92; PULSE 76–102; RESP 16–25; TEMP 36.5–37.1; O2SAT 92–99
--- NOTE | 2025-02-14 02:24 | ECG_ITS ---
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 Measurements Intervals [place] Rate: 89 P: 0 WA: 0 QRS: 14 QRSD: 122 T: 102 QT: 352 QTc: 429 Interpretive Statements ATRIAL FIBRILLATION ANTEROSEPTAL MYOCARDIAL INFARCTION , OF INDETERMINATE AGE [40+ ms Q WAVE IN V1-V4] Compared to ECG 02/12/2025 18:15:52 Sinus rhythm no longer present Myocardial infarct finding still present Electronically Signed On 02-14-2025 09:45:44 CDT by Talon Salguero M.D. [email or web address] [id number]
[2025-02-14 05:39] LABS: Hematocrit 38.5 % (36-47); Hemoglobin 11.50 g/dL (11.27-16.99); Mean Corpuscular HGB Conc 29.9 g/dL (30-55); Mean Corpuscular Hemoglobin 25.3 pg (27-33); Mean Corpuscular Volume 84.6 fl (85-98); Nucleated Red Blood Cells % 0 %; Platelet Count 523 10^3/cmm (157-399); Red Blood Count 4.55 10^6/uL (3.85-5.65); White Blood Count 16.37 10^3/uL (3.29-11.43)
[2025-02-14 05:59] LABS: Alanine Aminotransferase 15 U/L (0-33); Albumin Level 3.4 g/dL (3.5-5.2); Alkaline Phosphatase 98 U/L (35-105); Anion Gap 17.3 (5-19); Aspartate Amino Transferase 10 U/L (0-32); Blood Urea Nitrogen 27 mg/dL (8-23); Calcium 9.9 mg/dL (8.5-10.5); Carbon Dioxide 31 mmol/L (22-29); Chloride 99 mmol/L (98-107); Creatinine Clr Calc Pharmacy 71.0311; Globulin 3.4 g/dL (1.3-4.6); Glucose 193 mg/dL (65-115); Magnesium 2.2 mg/dL (1.7-2.3); Osmolality Calculated 306 mOsm/kg (285-295); Potassium 4.3 mmol/L (3.5-5.1); Sodium 143 mmol/L (136-145); Total Protein 6.8 g/dL (6.6-8.7)
[2025-02-14 06:11] LABS: Thyroid Stimulating Hormone 0.21 uIU/mL (0.27-4.20)
--- NOTE | 2025-02-14 08:05 | ECG_ITS ---
[facility] Test Date: 2025-02-14 Pat Name: Lauren Jose Department: Room: 276 Gender: Female Duty Officer: : 1945 Requested By: Emely Paige Order Number: [id number] Olga MD: Brenden Chowdhury M.D. Measurements Intervals [place] Rate: 107 P: 0 MS: 0 QRS: 14 QRSD: 122 T: 161 QT: 353 QTc: 472 Interpretive Statements ATRIAL FIBRILLATION WITH RAPID VENTRICULAR RESPONSE MODERATE INTRAVENTRICULAR CONDUCTION DELAY [105+ ms QRS DURATION, 80+ ms Q/S IN V1/V2, NO Q AND 60+ ms R IN I/aVL/V5/V6] NONSPECIFIC ST & T-WAVE ABNORMALITY INTERPRETATION BASED ON A DEFAULT AGE OF 40 YEARS Compared to ECG 02/14/2025 02:36:12 Intraventricular conduction delay now present T-wave abnormality now present Myocardial infarct finding no longer present Electronically Signed On 02-14-2025 15:01:11 CDT by Brenden Chowdhury M.D. [id number]
--- NOTE | 2025-02-14 09:10 | PC.CHAP ---
Pastoral Care Encounter/Spiritual Assessment Type of Contact [] Declined heel nail rasper visit [] Patient/Family/Request visit [] Outpatient visit [] Follow-up visit [] Physician referral [] Code/Alert [] Routine visit [] Staff referral [] Actively dying [x] Patient sleeping [] Family support [] [] Out of room [] Palliative care [] [] Receiving care in room [] Pre-surgical visit [] Trauma [] Long length of stay [] ICU visit [] Other: Relational/Emotional Strength [] Patient feels connected with others/family/visitors/staff [] Distress [] Loneliness/isolation [] Abandonment Spirituality of Patient [] Person of Maria E [] Attends Amish of their Maria E [] Believes in Prayer [] Reads Bible or Restorationism materials [] There are Spiritual issues to be addressed Thermoplastic Technician Interventions [] Prayer [] Active listening [] Non-anxious presence [] Spiritual/emotional support [] Crisis/trauma care [] Spiritual counseling [] Bereavement support [] Provided bereavement packet [] Provided Bible/devotional materials [] Provided toy/stuffed animal, coloring book to patient or family member [] Provided Communion [] Anointing/[place] [] Salvation [] Completed spiritual assessment [] Other: Impact on Illness or Injury [] Angry [] Fearful [] Anxious [] Often cries [] Exhaustion [] Unable to work [] Unable to attend mormon [] Unable to walk/stand [] Unable to read [] Unable to drive [] Unable to eat/drink [] Unable to sleep [] Unable to be with family [] Patient intubated [] Other: Summary Time spent with patient
[2025-02-14 09:34] LABS: Free T4 Free Thyroxine 1.37 ng/dL (0.82-1.77)
[2025-02-14] MEDS: heparin 5,000 unit/mL INJ 1 mL 5000 UNIT SUBCUT (09:44)
[2025-02-14] MEDS: FUROsemide 10 mg/mL SDV 4mL 40 MG IVP ×3 (09:53→23:15)
[2025-02-14] MEDS: piperacillin-tazobactam 3.375 GM in sodium chloride 0.9% (plus) 50 ML IV ×3 (10:01→23:15)
--- NOTE | 2025-02-14 13:12 | PC.NURSE ---
Called report to DAVID Garcia in [facility]. Patient went into AFIB during the night. Dr. Paige wanted to send patient to [facility] for a drip.
[2025-02-14] MEDS: dilTIAZem 100 MG in sodium chloride 0.9% (add-van) 100 ML IV (13:35)
[2025-02-14] MEDS: methylPREDNISolone sod succ 40 mg/mL INJ IVP ×2 (13:36→23:14)
[2025-02-14] MEDS: dilTIAZem 5 mg/mL SDV 5 mL 10 MG IVP (13:37)
--- NOTE | 2025-02-14 14:04 | PC.NURSE ---
received from med/surg at 1245 via bed.report received from torin kan.pt is oriented x 3.denies pain at present.afib on monitor-rate low 100's.cardizem 10 mg given ivp..then cardizem drip started at 5 mg/hr as ordered.oriented to room environment.instructed to notify staff if needs to get up,for pain,sob,dizziness..or for any concerns at all.pt verb understanding of instructions
--- NOTE | 2025-02-14 14:17 | P.PN_ITS ---
Subjective 2 Subjective: Seen this morning. On 2.5 L nasal cannula Sputum culture shows haemophilus influenza. She went into A-fib with RVR overnight. We will be transferring to CICU and placing on Cardizem drip. Vitals/I&O/Wt Last Vital Signs Temp 98.3 F 02/14/25 11:26 Pulse 88 02/14/25 11:26 Resp 21 H 02/14/25 11:26 BP 160/92 02/14/25 11:26 Pulse Ox 92 02/14/25 11:26 O2 Del Method Nasal Cannula 02/14/25 11:26 O2 Flow Rate 3 02/14/25 11:26 FiO2 3 02/13/25 01:24 02/13/25 02/14/25 02/14/25 22:59 06:59 14:59 Intake Total 590 / 1360 350 / 1710 150 / 150 Output Total 1600 / 2400 1000 / 3400 800 / 800 Balance -1010 / -1040 -650 / -1690 -650 / -650 Weight last 48 hrs Weight 102.058 kg Weight 103.056 kg Weight 106.141 kg Physical Exam 2 Narrative: General: AOx 3 HEENT: PERRLA, pupils bilaterally equal and reactive Chest: Normal vesicular breath sounds, no added sounds, equal good air entry bilaterally CVS: S1-S2 , no murmurs, tachycardia, irregularly irregular Abdomen: Soft, nontender, bowel sounds present Neuro: No focal deficits, no facial deformity, Urinary Catheter Management: Dumont: Cath Placed During This Visit: yes Reason for Continuing Indwelling Catheter: Other Urinary Catheter Date of Insertion: 02/12/25 Urinary Catheter Time of Insertion: 17:30 Data 02/14/25 04:50 02/14/25 04:50 Micro: Microbiology 02/12/25 13:00 Gram Stain - Final Sputum - Expectorated Sputum Sputum Culture - Final Haemophilus influenzae 02/12/25 13:00 Blood Culture - Preliminary Blood NEGATIVE TO DATE 02/12/25 13:00 Blood Culture - Preliminary Blood NEGATIVE TO DATE A&P Assessment and plan 1. Acute on chronic hypoxic respiratory failure: 2. Chronic hypercapnic respiratory failure: 3. COPD with acute exacerbation: 4. Heart failure with improved ejection fraction (HFimpEF): 5. Hypertension: 6. Community acquired pneumonia: 7. Haemophilus infection: 8. Atrial fibrillation with RVR: Plan: Acute on chronic hypoxic respiratory failure: Chronic hypercapnic failure: Most likely in setting of COPD exacerbation along with some concerns for community-acquired pneumonia and bronchitis. Cannot rule out congestive heart failure. Patient does have history of systolic CHF with an EF down to 38% which has improved to 65% on most recent echocardiogram. Appreciate CT head in the ER. Check sputum culture, trend procalcitonin, blood culture, urinalysis, bacterial antigen, proBNP. Empirically start patient on IV vancomycin and Zosyn. Patient has history of MRSA pneumonia in the past. De-escalate as per culture sensitivity. DuoNeb every 6 hour, Pulmicort twice daily. Oxygen supplementation keeping saturation over Solu-Medrol 40 mg every 6 hour. Tessalon Perles 3 times daily, Robitussin as needed. Check limited echocardiogram. Cycle troponin, check proBNP. IV Lasix 40 mg one-time. Will redose further Lasix depending on fluid status. Fluid restriction to less than 1500 cc. Hypertension: Goal blood pressure less than 140/90 mmHg. For now continue with home dose of carvedilol 6.25 mg twice daily, hydralazine at a dose of 50 mg 3 times daily(patient takes 50 mg 4 times daily at home), Imdur 30 mg daily, amlodipine 10 mg daily. Hold off on dose of lisinopril 20 mg daily for now. Uptitrate as per goal blood pressure. Type 2 diabetes mellitus: Insulin sliding scale at low-dose protocol. Check A1c. Continue with home dose of Lantus 20 units nightly. Continue other chronic home medications including BuSpar, duloxetine, statin, levothyroxine. CODE STATUS: Discussed in detail with the patient. Daughter was the DPOA. Does not want any kind of resuscitation. DNR/DNI. Heparin 5000 every 12 hourly for DVT prophylaxis Protonix for PUD prophylaxis Carb consistent cardiac diet Physical therapy. Out of bed to chair. 02/13/2025 seen today continue mgmt per HnP continue azithromycin continue zosyn continue solumedrol but reduce dose to q12 hours leukocytosis probably reactive to steroids xray reviewed continue lasix 40 iv daily 02/14/2025 Sputum culture shows haemophilus influenza, sensitivity pending Continue Zosyn, azithromycin, vancomycin. Continue Solu-Medrol 40 every 12 hours Will start reducing dose tomorrow. Repeat chest x-ray today Continue on Lasix 40 IV twice daily for today. Check limited echo Transfer to CSU Order Cardizem 10 IV push x 1 and placed on Cardizem drip. Will place on therapeutic Lovenox PDMP PDMP Reviewed: Not Reviewed Attestations 2 Medical Necessity Statement*: A-fib with RVR Diagnoses Acute on chronic hypoxic respiratory failure J96.21 Chronic hypercapnic respiratory failure J96.12 COPD with acute exacerbation J44.1 Heart failure with improved ejection fraction (HFimpEF) I50.20 Hypertension I10 Community acquired pneumonia J18.9 Haemophilus infection Atrial fibrillation with RVR I48.91
--- NOTE | 2025-02-14 16:37 | XRR_ITS ---
PROCEDURE INFORMATION: Exam: XR Chest Exam date and time: 02/14/2025 4:44 PM Age: 79 years old Clinical indication: Other: F/u cxr; Additional info: F/u pulm edema/infiltrates TECHNIQUE: Imaging protocol: Radiologic exam of the chest. Views: 1 view. COMPARISON: CT angio chest PE protcl [id number] 02/12/2025 2:07 PM FINDINGS: Tubes, catheters and devices: Unchanged thoracic spine stimulator leads. Lungs: Streaky increased density is again noted in the left retrocardiac region. No other evidence for infiltrate. Pleural spaces: No pleural effusion or pneumothorax identified. Heart/Mediastinum: Cardiomegaly is again noted. Mediastinal size is normal. Bones/joints: Unremarkable. XR/XR chest 1V portable [id number] IMPRESSION: 1. Persistent streaky increased density in the left retrocardiac region which could represent chronic atelectasis or mild infiltrate/pneumonia. 2. Cardiomegaly.
[2025-02-14] MEDS: ATORVASTATIN 10 MG TABLET 20 MG PO (21:38)
[2025-02-14] MEDS: pantoprazole 40 mg SDV IVP (21:38)
[2025-02-14] MEDS: insulin glargine 100 units/1 mL 20 UNIT SUBCUT (21:39)
[2025-02-15] VITALS (13 sets, daily range): BP systolic 141–163; BP diastolic 68–99; PULSE 85–110; RESP 16–30; TEMP 36.6–36.8; O2SAT 92–97
[2025-02-15] MEDS: guaiFENesin-dextromethorphan UDC 10 mL 5 ML PO ×3 (00:11→22:46)
[2025-02-15 01:43] LABS: Hematocrit 38.4 % (36-47); Hemoglobin 11.80 g/dL (11.27-16.99); Mean Corpuscular HGB Conc 30.7 g/dL (30-55); Mean Corpuscular Hemoglobin 25.3 pg (27-33); Mean Corpuscular Volume 82.4 fl (85-98); Nucleated Red Blood Cells % 0 %; Platelet Count 517 10^3/cmm (157-399); Red Blood Count 4.66 10^6/uL (3.85-5.65); White Blood Count 17.87 10^3/uL (3.29-11.43)
[2025-02-15 02:06] LABS: Alanine Aminotransferase 19 U/L (0-33); Albumin Level 3.5 g/dL (3.5-5.2); Alkaline Phosphatase 96 U/L (35-105); Anion Gap 18.8 (5-19); Aspartate Amino Transferase 15 U/L (0-32); Blood Urea Nitrogen 37 mg/dL (8-23); Calcium 9.5 mg/dL (8.5-10.5); Carbon Dioxide 31 mmol/L (22-29); Chloride 98 mmol/L (98-107); Creatinine Clr Calc Pharmacy 71.0311; Globulin 3.3 g/dL (1.3-4.6); Glucose 188 mg/dL (65-115); Magnesium 1.9 mg/dL (1.7-2.3); Osmolality Calculated 312 mOsm/kg (285-295); Potassium 3.8 mmol/L (3.5-5.1); Sodium 144 mmol/L (136-145); Total Protein 6.8 g/dL (6.6-8.7)
--- NOTE | 2025-02-15 04:07 | PC.NURSE ---
Patient BP was elevated to 180/85 Dr Hawk was notified and gave orders to give 0900 hydralazine early.
[2025-02-15] MEDS: FUROsemide 10 mg/mL SDV 4mL 40 MG IVP (09:00)
[2025-02-15] MEDS: piperacillin-tazobactam 3.375 GM in sodium chloride 0.9% (plus) 50 ML IV ×2 (09:00→16:47)
[2025-02-15] MEDS: ondansetron 2 mg/ML SDV 2 mL 4 MG IVP (09:00)
--- NOTE | 2025-02-15 09:48 | PC.NURSE ---
Dr Paige on the floor to see patient. Received verbal orders regarding coreg dosing, xanax and to stop diltiazem. See orders for details.
[2025-02-15] MEDS: methylPREDNISolone sod succ 40 mg/mL INJ IVP (10:00)
--- NOTE | 2025-02-15 10:18 | CT_ITS ---
WS: [id number] CT ABDOMEN PELVIS TECHNIQUE: Contrast-enhanced CT of the abdomen and pelvis with coronal and sagittal reformatted images. CLINICAL INFORMATION: abdominal pain, diarrhea COMPARISON: CT 10/08/2023 DLP: 1069.[address] scans at [facility] use at least one of these dose optimization techniques: automated exposure control; mA and/or kV adjustment per patient size (includes targeted exams where dose is matched to clinical indication); or iterative reconstruction. FINDINGS: Cardiomegaly. Fatty liver. A few patchy opacities and atelectasis in the lung bases. Normal portal vein and splenic vein. Cholecystectomy clips. Small esophageal hiatal hernia. Gastritis and duodenitis with submucosal enhancement. Aortic calcification. Normal caliber abdominal aorta. Mild thickening of the LEFT greater than RIGHT adrenal glands. Normal renal parenchymal enhancement. No hydronephrosis. Small LEFT renal cyst. Normal pancreatic parenchymal enhancement. Fat-containing umbilical hernia. Dumont catheter. Sigmoid diverticulosis. No evidence of acute diverticulitis. Normal appendix. Colon is normal in appearance. Mild fluid distention with enhancement of a few small bowel loops can be seen with small bowel enteritis. No evidence of high- grade obstruction. Partially visualized spinal stimulator. Ankylosis lumbar spine. CT/CT abdomen pelvis w con* [id number] IMPRESSION: 1. Suspect small bowel enteritis. No evidence of high-grade obstruction. 2. Gastritis and duodenitis with submucosal enhancement and small esophageal h iatal hernia. Air-fluid levels in the stomach. 3. Fatty liver. 4. Prior cholecystectomy. 5. Sigmoid diverticulosis. No evidence of acute diverticulitis.
[2025-02-15] MEDS: iohexol 350 mg/mL 500 mL Btl (per mL) IV (11:39)
--- NOTE | 2025-02-15 13:39 | P.PN_ITS ---
Subjective 2 Subjective: seen this morning wbc 17K pt complains of abdominal pain she is having diarrhea Vitals/I&O/Wt Last Vital Signs Temp 97.9 F 02/15/25 12:00 Pulse 88 02/15/25 12:00 Resp 18 02/15/25 12:00 BP 141/68 02/15/25 12:00 Pulse Ox 94 02/15/25 12:00 O2 Del Method Nasal Cannula 02/15/25 12:00 O2 Flow Rate 3 02/15/25 12:00 FiO2 3 02/13/25 01:24 02/14/25 02/15/25 02/15/25 22:59 06:59 14:59 Intake Total 844.917 / 1044.917 99.375 / 1144.292 692.708 / 692.708 Output Total 1800 / 2600 800 / 3400 Balance -955.083 / -1555.083 -700.625 / -2255.708 692.708 / 692.708 Weight last 48 hrs Weight 100.516 kg Weight 100.516 kg Weight 102.058 kg Physical Exam 2 Narrative: General: AOx 3 HEENT: PERRLA, pupils bilaterally equal and reactive Chest: Normal vesicular breath sounds, no added sounds, equal good air entry bilaterally CVS: S1-S2 , no murmurs, rate controlled, sinus rhythm Abdomen: Soft, nontender, bowel sounds present Neuro: No focal deficits, no facial deformity, Urinary Catheter Management: Dumont: Cath Placed During This Visit: yes Reason for Continuing Indwelling Catheter: Other Urinary Catheter Date of Insertion: 02/12/25 Urinary Catheter Time of Insertion: 17:30 Data 02/15/25 01:25 02/15/25 01:25 Micro: Microbiology 02/12/25 13:00 Gram Stain - Final Sputum - Expectorated Sputum Sputum Culture - Final Haemophilus influenzae A&P Assessment and plan 1. Acute on chronic hypoxic respiratory failure: 2. Chronic hypercapnic respiratory failure: 3. COPD with acute exacerbation: 4. Heart failure with improved ejection fraction (HFimpEF): 5. Hypertension: 6. Community acquired pneumonia: 7. Haemophilus infection: 8. Atrial fibrillation with RVR: Plan: Acute on chronic hypoxic respiratory failure: Chronic hypercapnic failure: Most likely in setting of COPD exacerbation along with some concerns for community-acquired pneumonia and bronchitis. Cannot rule out congestive heart failure. Patient does have history of systolic CHF with an EF down to 38% which has improved to 65% on most recent echocardiogram. Appreciate CT head in the ER. Check sputum culture, trend procalcitonin, blood culture, urinalysis, bacterial antigen, proBNP. Empirically start patient on IV vancomycin and Zosyn. Patient has history of MRSA pneumonia in the past. De-escalate as per culture sensitivity. DuoNeb every 6 hour, Pulmicort twice daily. Oxygen supplementation keeping saturation over Solu-Medrol 40 mg every 6 hour. Tessalon Perles 3 times daily, Robitussin as needed. Check limited echocardiogram. Cycle troponin, check proBNP. IV Lasix 40 mg one-time. Will redose further Lasix depending on fluid status. Fluid restriction to less than 1500 cc. Hypertension: Goal blood pressure less than 140/90 mmHg. For now continue with home dose of carvedilol 6.25 mg twice daily, hydralazine at a dose of 50 mg 3 times daily(patient takes 50 mg 4 times daily at home), Imdur 30 mg daily, amlodipine 10 mg daily. Hold off on dose of lisinopril 20 mg daily for now. Uptitrate as per goal blood pressure. Type 2 diabetes mellitus: Insulin sliding scale at low-dose protocol. Check A1c. Continue with home dose of Lantus 20 units nightly. Continue other chronic home medications including BuSpar, duloxetine, statin, levothyroxine. CODE STATUS: Discussed in detail with the patient. Daughter was the DPOA. Does not want any kind of resuscitation. DNR/DNI. Heparin 5000 every 12 hourly for DVT prophylaxis Protonix for PUD prophylaxis Carb consistent cardiac diet Physical therapy. Out of bed to chair. 02/13/2025 seen today continue mgmt per HnP continue azithromycin continue zosyn continue solumedrol but reduce dose to q12 hours leukocytosis probably reactive to steroids xray reviewed continue lasix 40 iv daily 02/14/2025 Sputum culture shows haemophilus influenza, sensitivity pending Continue Zosyn, azithromycin, vancomycin. Continue Solu-Medrol 40 every 12 hours Will start reducing dose tomorrow. Repeat chest x-ray today Continue on Lasix 40 IV twice daily for today. Check limited echo Transfer to CSU Order Cardizem 10 IV push x 1 and placed on Sultana abreuip. Will place on therapeutic Lovenox 02/15/2025 reduce solu medrol to 40 mg IV daily limited echo, shows no wall motion abnormalities pt has hx of mild mitral regurg from echo in sep 2024 will stop therapeutic lovenox start eliquis 5 bid for AFIB, CHADSVASC score 4 increase coreg to 12.5 BID cardizem drip stopped pt at baseline NC 3L PT/OT check ct abd pevlis stop stool softeners possibly abx associated diarrhea PDMP PDMP Reviewed: Not Reviewed Attestations 2 Medical Necessity Statement*: pneumonia, afib , diarrhea Diagnoses Acute on chronic hypoxic respiratory failure J96.21 Chronic hypercapnic respiratory failure J96.12 COPD with acute exacerbation J44.1 Heart failure with improved ejection fraction (HFimpEF) I50.20 Hypertension I10 Community acquired pneumonia J18.9 Haemophilus infection Atrial fibrillation with RVR I48.91
--- NOTE | 2025-02-15 14:49 | PC.SOCIAL ---
IMM updated IMM dated and initialed, copy given to patient and copy placed in chart.
[2025-02-15] MEDS: pantoprazole 40 mg SDV IVP (21:57)
[2025-02-15] MEDS: insulin glargine 100 units/1 mL 20 UNIT SUBCUT (21:58)
[2025-02-15] MEDS: ATORVASTATIN 10 MG TABLET 20 MG PO (21:58)
[2025-02-16] VITALS (8 sets, daily range): BP systolic 145–170; BP diastolic 69–81; PULSE 79–94; RESP 14–27; TEMP 36.5–36.9; O2SAT 94–97
[2025-02-16] MEDS: piperacillin-tazobactam 3.375 GM in sodium chloride 0.9% (plus) 50 ML IV ×2 (00:18→07:59)
[2025-02-16] MEDS: guaiFENesin-dextromethorphan UDC 10 mL 5 ML PO ×2 (03:08→07:59)
[2025-02-16] MEDS: methylPREDNISolone sod succ 40 mg/mL INJ IVP (07:59)
[2025-02-16] MEDS: FUROsemide 10 mg/mL SDV 4mL 40 MG IVP (07:59)
--- NOTE | 2025-02-16 09:23 | P.DS_ITS ---
Discharge Providers Date of Admission: 02/12/25 14:31 Date of Discharge: February 16, 2025 Attending Provider at Admission: Riky Angeles MD Attending Provider at Discharge: Emely Paige MD Primary Care Provider: Nazia Jha Diagnoses at Discharge Discharge Diagnosis 1. Acute on chronic hypoxic respiratory failure: 2. Chronic hypercapnic respiratory failure: 3. COPD with acute exacerbation: 4. Heart failure with improved ejection fraction (HFimpEF): 5. Essential hypertension: 6. Community acquired pneumonia: 7. Haemophilus infection: 8. Atrial fibrillation with RVR: Reason for Visit Reason for Visit: sob Hospital Course Hospital Course Patient was admitted to the hospital for COPD exacerbation who also had developed atrial fibrillation during hospital stay. Cardiology was also consulted. She was started on Eliquis 5 twice daily for A-fib. [id number] was was 4. Her home Coreg was increased to 12.5 twice daily. She was discharged home to follow-up with cardiology as an outpatient. Physical Exam Narrative: General: AOx 3 HEENT: PERRLA, pupils bilaterally equal and reactive Chest: Normal vesicular breath sounds, no added sounds, equal good air entry bilaterally CVS: S1-S2 , no murmurs, rate controlled, sinus rhythm Abdomen: Soft, nontender, bowel sounds present Neuro: No focal deficits, no facial deformity, Urinary Catheter Management: Dumont: Cath Placed During This Visit: yes Reason for Continuing Indwelling Catheter: Acute Urinary Retention or Obstruction Urinary Catheter Date of Insertion: 02/12/25 Urinary Catheter Time of Insertion: 17:30 Discharge Data Studies Completed and Pending Completed Studies During Hospitalization Category Date Time Status CT abdomen pelvis w con* [id number] Stat Cat Scan 02/15/25 10:18 Completed CTA chest [CT angio chest PE protcl [id number]] Stat Cat Scan 02/12/25 13:57 Completed XR chest 1V portable [id number] Routine Exams 02/14/25 16:37 Completed XR chest 1V portable [id number] Stat Exams 02/12/25 12:41 Completed CV. echo limited [id number] Stat Ultrasound 02/12/25 15:28 Completed Pending at discharge Category Date Time Status Blood Culture Stat Lab 02/12/25 13:00 Results SARS Covid-2 Antigen Routine Lab 02/16/25 09:06 Received Urinalysis Routine Lab 02/12/25 16:03 Ordered Radiology Impressions Chest CTA 02/12/25 13:57 IMPRESSION: No evidence of embolus. Multifocal pulmonary infiltrates. Chest X-Ray 02/14/25 16:37 IMPRESSION: 1. Persistent streaky increased density in the left retrocardiac region which could represent chronic atelectasis or mild infiltrate/pneumonia. 2. Cardiomegaly. Abdomen/Pelvis CT 02/15/25 10:18 IMPRESSION: 1. Suspect small bowel enteritis. No evidence of high-grade obstruction. 2. Gastritis and duodenitis with submucosal enhancement and small esophageal hiatal hernia. Air-fluid levels in the stomach. 3. Fatty liver. 4. Prior cholecystectomy. 5. Sigmoid diverticulosis. No evidence of acute diverticulitis. Laboratory Results WBC 17.87 10^3/uL (3.29-11.43) H 02/15/25 01:25 RBC 4.66 10^6/uL (3.85-5.65) 02/15/25 01:25 Hgb 11.80 g/dL (11.27-16.99) 02/15/25 01:25 Hct 38.4 % (36-47) 02/15/25 01:25 MCV 82.4 fl (85-98) L 02/15/25 01:25 MCH 25.3 pg (27-33) L 02/15/25 01:25 MCHC 30.7 g/dL (30-55) 02/15/25 01:25 RDW 16.1 % (12.1-15.1) H 02/15/25 01:25 Plt Count 517 10^3/cmm (157-399) H 02/15/25 01:25 MPV 8.7 fL (7.4-10.4) 02/15/25 01:25 Neut % (Auto) 87.2 % 02/15/25 01:25 Lymph % (Auto) 6.4 % 02/15/25 01:25 [place] % (Auto) 4.7 % 02/15/25 01:25 Eos % (Auto) 0.0 % 02/15/25 01:25 Baso % (Auto) 0.2 % 02/15/25 01:25 Neut # (Auto) 15.57 10^3/uL (1.8-7.7) H 02/15/25 01:25 Lymph # (Auto) 1.2 10^3/uL (0.8-4.8) 02/15/25 01:25 [place] # (Auto) 0.8 10^3/uL (0.2-0.9) 02/15/25 01:25 Eos # (Auto) 0.0 10^3/uL (0.0-0.8) 02/15/25 01:25 Baso # (Auto) 0.0 10^3/uL (0.0-0.1) 02/15/25 01:25 Nucleated RBC % (auto) 0 % 02/15/25 01:25 Nucleated RBCs # 0.0 /100WBC 02/15/25 01:25 Specimen Type Arterial 02/12/25 12:45 Sample Site Radial, right 02/12/25 12:45 ABG pH 7.42 (7.35-7.45) 02/12/25 12:45 ABG pCO2 55.5 mmHg (35-45) H 02/12/25 12:45 ABG pO2 70.0 mmHg (80.0-100.0) L 02/12/25 12:45 ABG PO2/FiO2 Ratio 194 02/12/25 12:45 ABG HCO3 36.1 mmol/L (22-26) H 02/12/25 12:45 ABG O2 Saturation 94.6 02/12/25 12:45 ABG Base Excess 9.9 mmol/L (-2.0-2.0) H 02/12/25 12:45 Cornel Test Pos 02/12/25 12:45 A-a O2 Gradient 15.5 mmHg (5-10) H 02/12/25 12:45 Hematocrit 34.4 % (37-47) L 02/12/25 12:45 Hgb O2 Saturation 92.8 % (95-100) L 02/12/25 12:45 Carboxyhemoglobin 1.2 %THgb (0.4-20.1) 02/12/25 12:45 Methemoglobin 0.7 % (0.4-1.5) 02/12/25 12:45 Total Hemoglobin 11.2 g/dL (12-16) L 02/12/25 12:45 Sodium 140.0 mmol/L (131-143) 02/12/25 12:45 Potassium 4.6 mmol/L (3.5-5.0) 02/12/25 12:45 Glucose 316.0 mg/dL (70-115) H 02/12/25 12:45 Ionized Calcium 1.3 mmol/L (1.1-1.4) 02/12/25 12:45 O2 Delivery Device Nc 02/12/25 12:45 O2 Liters/Min 4.0 % 02/12/25 12:45 FiO2 36.0 % 02/12/25 12:45 Banking Teacher ID [place] 02/12/25 12:45 Sodium 144 mmol/L (136-145) 02/15/25 01:25 Potassium 3.8 mmol/L (3.5-5.1) 02/15/25 01:25 Chloride 98 mmol/L (98-107) 02/15/25 01:25 Carbon Dioxide 31 mmol/L (22-29) H 02/15/25 01:25 Anion Gap 18.8 (5-19) 02/15/25 01:25 BUN 37 mg/dL (8-23) H 02/15/25 01:25 Creatinine 0.8 mg/dL (0.5-0.9) 02/15/25 01:25 GFR Calculation Not Reportable 02/15/25 01:25 Glucose 188 mg/dL (65-115) H 02/15/25 01:25 POC Glucose 107 mg/dL (70-110) 02/16/25 05:53 Estimat Average Glucose 146 02/12/25 13:00 Hemoglobin A1c 6.7 % (4.0-6.0) H 02/12/25 13:00 Calculated Osmolality 312 mOsm/kg (285-295) H 02/15/25 01:25 Lactic Acid 1.2 mmol/L (0.5-2.2) 02/12/25 18:18 Calcium 9.5 mg/dL (8.5-10.5) 02/15/25 01:25 Phosphorus 3.6 mg/dL (2.5-4.5) 02/15/25 01:25 Magnesium 1.9 mg/dL (1.7-2.3) 02/15/25 01:25 Iron 13 ug/dL (37-145) L 02/12/25 13:00 TIBC 218 mcg/dl 02/12/25 13:00 % Saturation 5.9 % (20-50) L 02/12/25 13:00 Unsat Iron Binding 205 ug/dL (112-347) 02/12/25 13:00 Total Bilirubin 0.6 mg/dL (0.15-1.2) 02/15/25 01:25 AST 15 U/L (0-32) 02/15/25 01:25 ALT 19 U/L (0-33) 02/15/25 01:25 Alkaline Phosphatase 96 U/L (35-105) 02/15/25 01:25 Troponin T Baseline 23 ng/L (0-10) H 02/12/25 13:00 Troponin T 120 Minute 21.05 ng/L (0-10) H 02/12/25 15:04 Delta Troponin T -1.95 ABS# (0-10) L 02/12/25 15:04 Troponin T Hi Sens 6Hr 19.48 ng/L (0-10) H 02/12/25 18:18 Troponin T Hi Sens 6Hr Delta -3.52 ng/L (0-12) L 02/12/25 18:18 C-Reactive Protein 129.9 mg/L (0.0-4.9) H 02/12/25 13:00 NT-Pro-B Natriuret Pep 783 pg/mL (0-450) H 02/12/25 18:18 Total Protein 6.8 g/dL (6.6-8.7) 02/15/25 01:25 Albumin 3.5 g/dL (3.5-5.2) 02/15/25 01:25 Globulin 3.3 g/dL (1.3-4.6) 02/15/25 01:25 Triglycerides 165 mg/dL (0-150) H 02/13/25 02:27 Cholesterol 150 mg/dL (0-200) 02/13/25 02:27 LDL Cholesterol, Calc 55 mg/dL (50-129) 02/13/25 02:27 HDL Cholesterol 62 mg/dL (60-100) 02/13/25 02:27 LDL/HDL Ratio 0.89 RATIO (0.00-3.22) 02/13/25 02:27 Cholesterol/HDL Ratio 2.42 mg/dL (0.0-4.40) 02/13/25 02:27 Vitamin B12 362 pg/mL (232-1245) 02/12/25 13:00 Folate 11.6 ng/mL (4.8-37.3) 02/13/25 02:27 Procalcitonin 0.15 ng/mL (0-0.5) 02/13/25 02:27 TSH 0.21 uIU/mL (0.27-4.20) L 02/14/25 04:50 Free T4 1.37 ng/dL (0.82-1.77) 02/14/25 04:50 Urine Color Yellow (Yellow) 02/12/25 Unknown Urine Appearance Clear (CLEAR) 02/12/25 Unknown Urine pH 5.0 (5-7) 02/12/25 Unknown Ur Specific [place] 1.013 (1.005-1.030) 02/12/25 Unknown Urine Protein 2+ (Negative) A 02/12/25 Unknown Urine Glucose (UA) Negative (Normal) 02/12/25 Unknown Urine Ketones Negative (Negative) 02/12/25 Unknown Urine Blood Negative (Negative) 02/12/25 Unknown Urine Nitrate Negative (Negative) 02/12/25 Unknown Urine Bilirubin Negative (Negative) 02/12/25 Unknown Urine Urobilinogen 0.2 mg/dL (Negative) 02/12/25 Unknown Ur Leukocyte Esterase Negative (Negative) 02/12/25 Unknown Urine RBC 0-2 /hpf (0-2) 02/12/25 Unknown Urine WBC 0-5 /hpf (0-5) 02/12/25 Unknown Ur Squamous Epith Cells 0-5 /hpf (0-5) 02/12/25 Unknown Amorphous Sediment Not Reportable 02/12/25 Unknown Urine Bacteria None seen /hpf (NONE) 02/12/25 Unknown Hyaline Casts 8.26 /lpf 02/12/25 Unknown Vancomycin Trough 28.4 ug/mL (10-15) H* 02/15/25 01:25 Random Vancomycin 18.1 ug/mL (20.0-40.0) L 02/15/25 12:45 Vitals Last Vital Signs Temp 98.1 F 02/16/25 07:55 Pulse 94 02/16/25 08:01 Resp 14 02/16/25 07:55 BP 145/81 02/16/25 07:55 Pulse Ox 96 02/16/25 07:55 O2 Del Method Nasal Cannula 02/16/25 07:55 O2 Flow Rate 2 02/16/25 07:55 FiO2 3 02/13/25 01:24 Discharge Plan Discharge Patient Disposition: Xfer SNF Condition: Stable Prescriptions: New levothyroxine 50 mcg Tablet 25 mcg PO QAM Qty: 30 0RF Eliquis 5 mg Tablet 5 mg PO BID@0900,2100 Qty: 60 0RF amoxicillin-pot clavulanate 875-125 mg tablet 1 tab PO BID Qty: 14 0RF pantoprazole [Protonix] 40 mg tablet,delayed release (DR/EC) 40 mg PO DAILY Qty: 30 0RF Continued atorvastatin [Lipitor] 20 mg tablet 20 mg PO BEDTIME albuterol sulfate 90 mcg/actuation HFA aerosol inhaler 2 puff inhalation BID PRN (Reason: Shortness Of Breath) dicyclomine 20 mg tablet 20 mg PO BID PRN (Reason: stomach discomfort) duloxetine [Cymbalta] 60 mg capsule,delayed release(DR/EC) 60 mg PO DAILY tizanidine 2 mg capsule 2 mg PO Q8H PRN (Reason: Muscle Spasm) acetaminophen [Tylenol] 325 mg Tablet 325 mg PO QID buspirone 10 mg tablet 10 mg PO BID famotidine 20 mg tablet 20 mg PO BID furosemide 40 mg Tablet 40 mg PO DAILY 30 Days Qty: 30 0RF albuterol sulfate 2.5 mg /3 mL (0.083 %) solution for nebulization 2.5 mg inhalation QID PRN (Reason: Wheezing) arformoterol 15 mcg/2 mL solution for nebulization 15 mcg INHALATION BID budesonide 1 mg/2 mL suspension for nebulization 1 mg inhalation BID Yupelri 175 mcg/3 mL solution for nebulization 175 mcg INHALATION DAILY tramadol 50 mg tablet 50 mg PO Q4H PRN (Reason: Pain) zinc oxide Ointment 1 applic TOPICAL PRN Trulicity 1.5 mg/0.5 mL pen injector 1.5 mg SUBCUT Q7D Rx Instructions: isosorbide mononitrate 30 mg tablet extended release 24 hr 30 mg PO DAILY insulin glargine-yfgn 100 unit/mL (3 mL) insulin pen 20 unit SUBCUT BEDTIME magnesium hydroxide [Milk of Magnesia] 400 mg/5 mL Suspension 30 ml PO DAILY PRN (Reason: Constipation) bisacodyl 10 mg Suppository 10 mg MS DAILY PRN (Reason: Constipation) Fleet Enema 19-7 gram/118 mL Enema 118 ml MS DAILY PRN (Reason: Constipation) camphor-menthol 0.2-3.5 % Gel 1 applic TOPICAL TID PRN (Reason: Pain) Rx Instructions: rub in gently and completely magnesium oxide 200 mg magnesium tablet 200 mg PO BID amlodipine 10 mg tablet 10 mg PO DAILY Qty: 60 4RF guaifenesin 100 mg/5 mL Liquid 200 mg PO Q4H PRN (Reason: Cough) ondansetron 4 mg Tablet,Disintegrating 4 mg PO Q4H PRN (Reason: Nausea) loratadine 10 mg Tablet 10 mg PO DAILY Changed carvedilol 6.25 mg tablet 12.5 mg PO BID Qty: 60 0RF hydralazine 50 mg tablet 50 mg PO TID Qty: 60 0RF lisinopril 20 mg tablet 10 mg PO DAILY Qty: 30 0RF prednisone 20 mg tablet See Rx Instructions .ROUTE .COMPLEX Qty: 10 0RF Rx Instructions: 40 mg x 2d 20 mg x 3d 10 mg x 3d then stop Discontinued levothyroxine 50 mcg tablet 50 mcg PO QAM Discharge Order = DC NOW: Discharge Order (Routine); Ordered 02/16/25 Ordered By: Emely Paige Other Ambulatory Orders: Basic Metabolic Panel (Routine) Timeframe: 3 Days Facility: [facility] - Location: Lab - Main Lab Ordered By: Emely Paige Complete Blood Count w/Auto (Routine) Timeframe: 3 Days Location: Determined by Patient Ordered By: Emely Paige Referrals: [facility] [Outside] Ally Capellan FNP [Nurse Practitioner, Cardiology] - 02/21/25 2:30 pm Nazia Jha PA [Primary Care Provider, [employer]] - 1-3 days Discharge Diet: Cardiac Discharge Activity: Resume usual activity and As per PT/OT instructions Patient Instructions: Levothyroxine (By mouth) (Levothroid, Levoxyl, Synthroid, Tirosint), Amoxicillin/Clavulanate Potassium (By mouth) (Augmentin, Augmentin..., Pantoprazole (By mouth) (Protonix), Apixaban (By mouth) (Eliquis), A-fib (Atrial Fibrillation) (DC), Community Acquired Pneumonia (DC), COPD Stoplight Discharge Attestations Time Spent in Discharge Care*: less than 30 min Status at Discharge: Cognitive status at discharge: cognitively intact , Behavioral status at discharge: cooperative , Quality Metrics Clinical Quality Measures [ No reported AMI, CVA or VTE this stay] Coding Level of Care Code Acute Code for Chg Fwd Diagnoses Acute on chronic hypoxic respiratory failure J96.21 Chronic hypercapnic respiratory failure J96.12 COPD with acute exacerbation J44.1 Heart failure with improved ejection fraction (HFimpEF) I50.32 Essential hypertension I10 Community acquired pneumonia J18.9 Haemophilus infection Atrial fibrillation with RVR I48.91
[2025-02-16 09:59] LABS: SARS Covid-2 Antigen Negative (Negative)
--- NOTE | 2025-02-16 10:14 | P.CONIM_ITS ---
<Statement entered by Brenden Chowdhury M.D - 02/17/25 08:52> Patient was cared for in conjunction with an advanced practice practitioner.? I reviewed the chart and all pertinent data including imaging, telemetry, and laboratory results.? I discussed the patient in detail with the advanced practice practitioner.? Please see?their note for consult, testing results and agreed upon plan of care for the patient. Providers/Reason For Consult 2 Consulting Physician/Specialty*: Dr. Chowdhury, cardiology Reason for Consult*: new onset atrial fibrillation Requesting Physician: Emely Paige MD Attending Physician: Emely Paige MD Primary Care Provider: Nazia Jha History of Present Illness History of Present Illness Lauren Jose is a 79 year old female with past medical history of COPD, diabetes, hypertension, chronic systolic CHF (LVEF previously 38%, improved to 65%). She is DNR/DNI. She presented to the emergency room 02/12/2025 with shortness of breath felt to have COPD exacerbation, possible CAP. She was treated with antibiotics and steroids, she developed atrial fibrillation with RVR on 02/14/2025, treated with diltiazem IV, now rate controlled with carvedilol. Consult was requested for determination on cardioversion versus medical management of atrial fibrillation. Echocardiogram 01/24/2025: LVEF 55 to 60% dilated LV, mild mitral regurgitation, mild aortic stenosis mean gradient 12 mmHg. Limited echocardiogram 02/12/2025: LVEF 60-65%. Review of Systems 2 Card: Reports: irregular heart rhythm and dyspnea on exertion; Denies: chest pain, palpitations (she cannot feel the irregular rhythm), edema, swelling of feet/ankles, lightheadedness, syncope, pre-syncope, orthopnea or leg pain with exertion Resp: Reports: dyspnea; Denies: productive cough or wheezing GI: Denies: hematochezia : Denies: hematuria Lavelle/Lymph: Denies: easy bleeding Medications/Allergies Home Medications ?Medication ?Instructions ?Recorded ?Confirmed ?Last Taken ?Type atorvastatin 20 mg tablet (Lipitor) 20 mg PO BEDTIME 0 09/30/19 02/12/25 02/11/25 History acetaminophen 325 mg tablet 325 mg PO QID Pain 1 02/12/25 02/12/25 History (Tylenol) buspirone 10 mg tablet 10 mg PO BID 12/13/2002/12/25 History famotidine 20 mg tablet 20 mg PO BID 06/26/2302/12/25 History furosemide 40 mg tablet 40 mg PO DAILY 30 days #30 t abs 07/04/23 02/12/25 02/12/25 Rx albuterol sulfate 90 mcg/actuation 2 puff inhalation B ID PRN 08/21/23 02/12/25 02/12/25 History aerosol inhaler Shortness Of Breath bisacodyl 10 mg rectal suppository 10 mg RI DAILY PRN Constipation 10/08/23 02/12/25 Unknown History camphor-menthol 0.2 %-3.5 % 1 applic topical TID PRN P ain 10/08/23 02/12/25 12/04/24 History topical gel insulin glargine-yfgn 100 unit/mL 20 unit SUBCUT BEDTI ME 10/08/23 02/12/25 02/11/25 History (3 mL) subcutaneous pen isosorbide mononitrate 30 mg 30 mg PO DAILY 10/08/23 0 02/12/25 02/12/25 History tablet,extended release 24 hr magnesium hydroxide 400 mg/5 mL 30 ml PO DAILY PRN Con stipation 10/08/23 02/12/25 08/21/24 History oral suspension (Milk of Magnesia) magnesium oxide 200 mg PO BID 10/08/2302/1202/12/25 History sodium phosphates 19 gram-7 118 ml RI DAILY PRN Consti pation 10/08/23 02/12/25 Unknown History gram/118 mL enema (Fleet Enema) amlodipine 10 mg tablet 10 mg PO DAILY #60 tabs 03/04/2602/12/25 02/12/25 Rx dicyclomine 20 mg tablet 20 mg PO BID PRN stomach dis comfort 10/27/23 02/12/25 Unknown History guaifenesin 100 mg/5 mL oral liquid 200 mg PO Q4H PRN Cough 10/23/24 02/12/25 02/09/25 History loratadine 10 mg tablet 10 mg PO DAILY 10/23/2401/3102/12/25 History ondansetron 4 mg disintegrating 4 mg PO Q4H PRN Nausea 10/23/24 02/12/25 02/02/25 History tablet duloxetine 60 mg capsule,delayed 60 mg PO DAILY 02/12/25 02/12/25 History release (Cymbalta) tizanidine 2 mg capsule 2 mg PO Q8H PRN Muscle Spasm 12/21/24 02/12/25 02/01/25 History albuterol sulfate 2.5 mg/3 mL 2.5 mg inhalation QID RI N Wheezing 02/12/25 02/12/25 02/12/25 History (0.083 %) solution for nebulization arformoterol 15 mcg/2 mL solution 15 mcg inhalation BI D 02/12/25 02/12/25 02/12/25 History for nebulization budesonide 1 mg/2 mL suspension 1 mg inhalation BID 02/12/25 02/12/25 History for nebulization dulaglutide 1.5 mg/0.5 mL 1.5 mg SUBCUT Q7D 02/12/25 0 02/12/25 02/09/25 History [facility] revefenacin 175 mcg/3 mL solution 175 mcg inhalation D AILY 02/12/25 02/12/25 02/12/25 History for nebulization (O[place]) tramadol 50 mg tablet 50 mg PO Q4H PRN Pain 02/12/25 02/11/25 History zinc oxide 1 applic topical PRN may kiel p at 02/12/25 02/12/25 Unknown History bedside amoxicillin 875 mg-potassium 1 tab PO BID #14 tabs Unknown Rx clavulanate 125 mg tablet apixaban 5 mg tablet (Eliquis) 5 mg PO BID@0900,2100 # 60 tabs 02/16/25 Unknown Rx carvedilol 6.25 mg tablet 12.5 mg (2 x 6.25 mg) PO BID #60 02/16/25 02/12/25 02/12/25 Rx tabs hydralazine 50 mg tablet 50 mg PO TID #60 tabs 02/12/25 02/12/25 Rx levothyroxine 50 mcg tablet 25 mcg (1/2 x 50 mcg) PO Q AM #30 02/16/25 Unknown Rx tabs lisinopril 20 mg tablet 10 mg (1/2 x 20 mg) PO DAILY #30 02/16/25 02/12/25 02/12/25 Rx tabs pantoprazole 40 mg tablet,delayed 40 mg PO DAILY #30 t abs 02/16/25 Unknown Rx release (Protonix) prednisone 20 mg tablet See Rx Instructions .Route 0 02/16/25 Unknown Rx .COMPLEX x5days #10 tabs Allergies Allergy/AdvReac Type Severity Reaction Status Date / Time No Known Allergies Allergy Verified 12/21/24 08:12 Current Medications Generic Name Dose Route Start Last Admin Trade Name Freq PRN Reason Stop Dose Admin Acetaminophen 650 mg 02/12/25 17:53 02/16/25 03:08 Acetaminophen 325 Mg Tablet PO 650 mg Q6H PRN Administration Mild/Mod Pain Or Temp >/= 101 Albuterol/Ipratropium 3 ml 02/12/25 20:00 02/16/25 07:53 Ipratropium-Albuterol 3 Ml Neb INHALATION 3 ml Q6H.RESP MAYCO Administration Alprazolam 0.25 mg 02/15/25 09:53 02/16/25 07:58 Alprazolam 0.5 Mg Tablet PO 0.25 mg BID PRN Administration anx Apixaban 5 mg 02/15/25 21:00 02/16/25 07:58 Apixaban 5 Mg Tablet PO 5 mg BID@0900,2100 MAYCO Administration Atorvastatin Calcium 20 mg 02/12/25 21:00 02/15/25 21:58 Atorvastatin 10 Mg Tablet PO 20 mg BEDTIME MAYCO Administration Azithromycin 500 mg 02/12/25 19:15 02/15/25 16:49 Azithromycin 250 Mg Tablet PO 500 mg QPM MAYCO Administration Protocol Benzonatate 200 mg 02/12/25 17:50 02/16/25 07:58 Benzonatate 100 Mg Capsule PO 200 mg TID MAYCO Administration Budesonide 0.5 mg 02/12/25 20:00 02/16/25 07:53 Budesonide 0.5 Mg/2 Ml Neb INHALATION 0.5 mg BID.RESPIRATORY MAYCO Administration Buspirone HCl 10 mg 02/12/25 18:00 02/16/25 07:58 Buspirone 10 Mg Tablet PO 10 mg BID MAYCO Administration Carvedilol 6.25 mg 02/15/25 09:45 02/15/25 10:00 Carvedilol 6.25 Mg Tablet PO 6.25 mg ONCE MAYCO Administration Carvedilol 12.5 mg 02/15/25 18:00 02/16/25 07:58 Carvedilol 12.5 Mg Tablet PO 12.5 mg BID MAYCO Administration Duloxetine HCl 60 mg 02/13/25 09:00 02/16/25 07:58 Duloxetine 60 Mg Capsule PO 60 mg DAILY MAYCO Administration Furosemide 40 mg 02/15/25 08:30 02/16/25 07:59 Furosemide 10 Mg/Ml Sdv 4ml IVP 40 mg Q24H MAYCO Administration Guaifenesin/Dextromethorphan 5 ml 02/12/25 17:50 02/16/25 07:59 Guaifenesin-Dextromethorphan Udc 10 Ml PO 5 ml Q4H PRN Administration COUGH Hydralazine HCl 50 mg 02/12/25 21:00 02/16/25 07:58 Hydralazine 50 Mg Tablet PO 50 mg TID MAYCO Administration Piperacillin Sod/Tazobactam 50 mls @ 12.5 mls/hr 02/13/25 16:00 02/16/25 07:59 Sod 3.375 gm/ Sodium Chloride IV 12.5 mls/hr Q8H MAYCO Administration Vancomycin HCl 1,250 mg in 250 mls @ 166.667 mls/hr 02/15/25 15:00 02/16/25 09:47 Vancocin IV Infused Q18H MAYCO Infusion Insulin Glargine 20 unit 02/12/25 21:00 02/15/25 21:58 Insulin Glargine 100 Units/1 Ml SUBCUT 20 unit BEDTIME MAYCO Administration Insulin Human Lispro 0 unit 02/12/25 21:00 02/16/25 07:35 Insulin Lispro 100 Unit/1 Ml SUBCUT Not Given WM&BEDTIME [facility] Protocol Isosorbide Mononitrate 30 mg 02/13/25 09:00 02/16/25 07:58 Isosorbide Mononitrate Er 30 Mg Tablet PO 30 mg DAILY MAYCO Administration Levothyroxine Sodium 25 mcg 02/15/25 06:00 02/16/25 05:57 Levothyroxine 50 Mcg Tablet PO 25 mcg QAM MAYCO Administration Methylprednisolone Sodium Succinate 40 mg 02/15/25 10:30 02/16/25 07:59 Methylprednisolone Sod Succ 40 Mg/Ml Inj IVP 40 mg Q24H MAYCO Administration Ondansetron HCl 4 mg 02/12/25 17:53 02/15/25 09:00 Ondansetron 2 Mg/Ml Sdv 2 Ml IVP 4 mg Q6H PRN Administration vomiting, or N/V if npo Pantoprazole Sodium 40 mg 02/12/25 20:00 02/15/25 21:57 Pantoprazole 40 Mg Sdv IVP 40 mg Q24H MAYCO Administration PFSH Acute 2 PFSH: Medical History (Updated 02/16/25 @ 10:43 by PAT Batres) Heart failure with improved ejection fraction (HFimpEF) Bradycardia Hyperkalemia Anemia Acute diverticulitis Heart block AV third degree Obesity hypoventilation syndrome Hyperkalemia Morbid obesity Acute respiratory failure with hypoxia and hypercapnia Shortness of breath Acute kidney injury Chronic CHF (congestive heart failure) Hypokalemia Hypomagnesemia Torsades de pointes Diarrhea Takotsubo cardiomyopathy Gastritis Blood in stool Acute HFrEF (heart failure with reduced ejection fraction) HFrEF (heart failure with reduced ejection fraction) Stress-induced cardiomyopathy Diabetes Hypertension Non-ST elevation [place] (NSTEMI) History of cerebrovascular accident COPD (chronic obstructive pulmonary disease) Hypertension Depression with anxiety History of GI bleed GERD (gastroesophageal reflux disease) Diabetes CVA (cerebral vascular accident) COPD (chronic obstructive pulmonary disease) Carpal tunnel syndrome on both sides Opioid contract exists Encounter for long-term use of opiate analgesic Chronic radicular low back pain Smokeless tobacco use Low back pain Surgical History History of esophagogastroduodenoscopy (EGD) (~11/2020) History of colonoscopy (~11/2020) H/O knee surgery History of knee replacement History of lumbar surgery Also history of spinal cord stimulator, currently not functioning History of shoulder surgery Family History Other CAD (coronary artery disease) Hypertension Stroke Denies family history of Anesthesia complication Bleeding disorder Social History Smoking and tobacco/nicotine status: former use of tobacco/nicotine Quit status (tobacco/nicotine): has quit using Year quit tobacco: 2012 Former quit date comment: 2ppd X 48 years Alcohol intake: never Substance/Drug Use: never Housing: [facility] Vitals/I&O/Wt Last Vital Signs Temp 98.1 F 02/16/25 07:55 Pulse 94 02/16/25 08:01 Resp 14 02/16/25 07:55 BP 145/81 02/16/25 07:55 Pulse Ox 96 02/16/25 07:55 O2 Del Method Nasal Cannula 02/16/25 07:55 O2 Flow Rate 2 02/16/25 07:55 FiO2 3 02/13/25 01:24 02/15/25 02/16/25 02/16/25 22:59 06:59 14:59 Intake Total 520 / 1502.708 290 / 1502.708 250 / 250 Output Total 1500 / 2050 550 / 2050 Balance -980 / -547.292 -260 / -547.292 250 / 250 Weight last 48 hrs Weight 220 lb 9.6 oz Weight 220 lb 9.6 oz Weight 221 lb 9.6 oz Weight 221 lb 9.6 oz Physical Exam 2 Const: COMMON NORMALS: no acute distress and patient oriented x3 Chest: COMMONS NORMALS: normal inspection of the chest and normal palpation of entire chest wall CHEST: Yes Symmetrical chest wall rise Resp: COMMON NORMALS: normal respiratory effort, No retractions, No use of accessory muscles and clear to auscultation bilaterally EFFORT & INSPECTION: Yes symmetric chest movement AUSCULTATION: clear to auscultation bilaterally Cardio: COMMON NORMALS: S1 normal heart sound present, S2 normal heart sound present, No gallops present (Cardio), No clicks present (Cardio), No murmurs present (Cardio) and No rub (Cardio) RHYTHM: abnormal rhythm irregularly irregular HEART SOUNDS: S1 normal heart sound present and S2 normal heart sound present PERIPHERAL PULSES: radial pulses present, posterior tibial pulses present and dorsalis pedis present Neuro: COMMON NORMALS: patient oriented x3 and moves all extremities Psych: COMMON NORMALS: mental status grossly normal and cooperative Urinary Catheter Management: Dumont: Cath Placed During This Visit: yes Reason for Continuing Indwelling Catheter: Acute Urinary Retention or Obstruction Urinary Catheter Date of Insertion: 02/12/25 Urinary Catheter Time of Insertion: 17:30 Data 02/15/25 01:25 02/15/25 01:25 A&P Assessment and plan 1. Heart failure with improved ejection fraction (HFimpEF): 2. Atrial fibrillation: 3. Hypertension: 4. Diabetes mellitus with skin ulcer: 5. Community acquired pneumonia: 6. COPD with acute exacerbation: Plan: Discussed patient with Dr. Chowdhury, who is the patient's cook italian style food. Since the atrial fibrillation is new onset it would be reasonable to attempt cardioversion to attempt to obtain sinus rhythm. She is asymptomatic in atrial fibrillation and rate control is good at the present time. She can discharge home with follow-up in the clinic in 10 days to determine if she is still in atrial fibrillation and for scheduling of [place] guided cardioversion. Continue carvedilol and apixaban at current doses. PDMP PDMP Reviewed: Not Reviewed Coding Level of Care Code Acute Code for g Fwd Diagnoses Heart failure with improved ejection fraction (HFimpEF) I50.20 Atrial fibrillation I48.91 Hypertension I10 Diabetes mellitus with skin ulcer E11.622; L98.499 Community acquired pneumonia J18.9 COPD with acute exacerbation J44.1
--- NOTE | 2025-02-16 12:18 | PC.NURSE ---
Patient returning to SNF. Report called to DAVID Iverson at [facility]. IVs removed. Dumont catheter removed.
== END 2025-02-16 13:57 | disposition skilled nursing facility (03) | DRG 193 ==
LOC: ER 15:19 → MEDSURG 15:52 → CSU 02-14 13:22
PROVIDERS: Internal Medicine; Admitting Provider Student in an Organized Health Care Education/Training Program; Emergency Provider Emergency Medicine; PCP Physician Assistant; Visit Provider Internal Medicine
DX: J18.9 Pneumonia, unspecified organism (principal); J96.21 Acute and chronic respiratory failure with hypoxia; J44.1 Chronic obstructive pulmonary disease with (acute) exacerbation; I50.22 Chronic systolic (congestive) heart failure; J96.12 Chronic respiratory failure with hypercapnia; J44.0 Chronic obstructive pulmonary disease with (acute) lower respiratory infection; E66.9 Obesity, unspecified; Z68.35 Body mass index [BMI] 35.0-35.9, adult; I48.91 Unspecified atrial fibrillation; Z66 Do not resuscitate; I11.0 Hypertensive heart disease with heart failure; I08.0 Rheumatic disorders of both mitral and aortic valves; F32.A Depression, unspecified; F41.9 Anxiety disorder, unspecified; B96.3 Hemophilus influenzae [H. influenzae] as the cause of diseases classified elsewhere; I25.2 Old myocardial infarction; Z79.4 Long term (current) use of insulin; Z79.85 Long-term (current) use of injectable non-insulin antidiabetic drugs; Z79.891 Long term (current) use of opiate analgesic; Z86.73 Personal history of transient ischemic attack (TIA), and cerebral infarction without residual deficits; Z87.891 Personal history of nicotine dependence
CPT/HCPCS: 36415; 36416; 36600; 51702; 71045; 71275; 74177; 80051; 80053; 80061; 80202; 81001; 82330; 82607; 82746; 82805; 82962; 83036; 83540; 83550; 83605; 83735; 83880; 84100; 84145; 84439; 84443; 84484; 85025; 86140; 86403; 87040; 87070; 87077; 87205; 87426; 93005; 93308; 94640; 94664; 96365; 96372; 96375; 97161; 97167; 99285; J1644; J1650; J1815; J1938; J2020; J2185; J2405; J2470; J2543; J2919; J3372; J3373; J3490; J7050; J7613; J7626; J9999; Q0144

== ENCOUNTER 2025-05-08 06:55 | Inpatient (IN) | payer MEDICARE, MEDICAID, SELFPAY ==
[2025-05-08] VITALS (96 sets, daily range): BP systolic 121–154; BP diastolic 58–97; PULSE 81–117; RESP 13–32; TEMP 36.6–37.1; O2SAT 91–100; BMI 37.4; BMI 45.3
--- OUTSIDE RECORDS SUMMARY | 2025-05-08 07:01 | XMS_ITS | Data Portability ---
Author Organization [facility] Address [address] [place] [address] Care Team Providers Care Parachute Panel Joiner Name Role Phone NAZIA JHA Primary Care Provider Unavailabl e Assessment No assessment recorded. Plan of Treatment Reminders Order Date Submit Date Provider Last Modified By Organization Details Last Modified Time Details Appointments None record ed. Lab None record ed. Referral None record ed. Procedures None record ed. Surgeries None record ed. Imaging None record ed. Medication Orders None record ed. Patient TargetsNo targets recorded. Patient Instructions Encounter Date Encounter Id Patient Instructions Last Modified By Organization Details Last Modified Time 01/11/2025 [id number] Patient stable a t present on current treatment plan. [email or web address] Not available 01/11/2025 08:21:54 Reason for Referral None Reported. Results Created Date Observation Date Name Description Value Unit Range Abnormal Flag Note LastModifiedBy Organization Detail LastModifiedTime 02/11/2001/24/2025 , [facility] ardio gram No observ ation record ed. [email or web address] [facility] [address] [place], [address], 02/10/2025 11:58:45 Result Notes None recorded. Problems Name Problem SNOMED Code Status Onset Date Resolution Date Notes Provider Name and Address Organization Details Recorded Time Abdomina l pain 20782193 Completed 201902/06/2020 ABDOMINA L PAIN - Status is Inactive ; Recorded 02/06/20 3:27PM by Nazia Jha PA-C, Annotati on/Adden dum; Promoted ; acuity set as *; NAZIA JHA PA-C [address] [place], [address] , [facility] 5 16:19:26 Aortic stenosis , non-rheu matic 734914592 Completed 201902/08/2020 AORTIC STENOSIS - Status is Inactive ; Recorded 02/08/20 10:06AM by Nazia Jha PA-C, Annotati on/Adden dum; Promoted ; acuity set as *; Not Available [facility] 3 03:12:50 Anemia 729972088 Completed 201902/08/2020 ANEMIA - Status is Resolved ; Resolved Date: 02/08/20; Recorded 02/08/20 10:01AM by Nazia Jha PA-C, Annotati on/Adden dum; Promoted ; acuity set as *; Not Available [facility] 3 03:12:58 Nausea 933813459 Completed 202005/07/2021 NAUSEA - Status is Inactive ; Recorded 05/07/20 4:32PM by Nazia Jha PA-C, Annotati on/Adden dum; Promoted ; acuity set as *; Not Available [facility] 3 03:12:50 Sleep disorder 72773748 Completed 202005/07/2021 SLEEPING DIFFICUL TIES - Status is Inactive ; Recorded 05/07/20 21 4:32PM by Nazia Jha PA-C, Stan on/Adden dum; Promoted ; acuity set as *; Not Available [facility] 3 03:12:57 Hyperlip idemia 75033971 Active 2022 HYPERLIP IDEMIA; Recorded 09/26/19 23 6:15AM by Lissa John LPN, Office Visit; Promoted ; acuity set as *; NAZIA JHA PA-C [address] [place] [address], [address] , [facility] 5 16:20:56 Severe obesity 73577767331 104 Active 2022 OBESITY, MORBID, BMI 40.0-49. 9; Recorded 09/26/19 23 6:15AM by Lissa John LPN, Office Visit; Promoted ; acuity set as *; LISSA JOHN [facility] 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 5 16:20:56 Coronary atherosc lerosis 307967211 Active 2022 CAD (CORONAR Y ARTERY DISEASE) ; Recorded 09/26/19 6:15AM by Lissa John LPN, Office Visit; Promoted ; acuity set as *; NAZIA JHA PA-C [address] [place], [address] , [facility] 5 16:20:56 Hypomagn esemia 686627860 Active 2022 HYPOMAGN ESEMIA; Recorded 09/26/19 23 6:15AM by Lissa John LPN, Office Visit; Promoted ; acuity set as *; NAZIA JHA PA-C [address] [place], [address] , [facility] 5 16:20:56 Chronic systolic heart failure 657593276 Active 2022 CHRONIC SYSTOLIC CONGESTI VE HEART FAILURE; Recorded 09/26/19 23 6:15AM by Lissa John LPN, Office Visit; Promoted ; acuity set as *; NAZIA JHA PA-C [address] [place], [address] , [facility] 5 16:20:56 Diarrhea 96569463 Active 2022 CHRONIC DIARRHEA ; Recorded 09/26/19 6:15AM by Lissa John LPN, Office Visit; Promoted ; acuity set as *; NAZIA JHA PA-C [address] [place], [address] , [facility] 16:20:56 Gastroes ophageal reflux disease 858252419 Active 2022 ACID REFLUX; Recorded 09/26/19 6:15AM by Lissa John LPN, Office Visit; Promoted ; acuity set as *; NAZIA JHA PA-C [address] [place], [address] , [facility] 16:20:56 Chronic hypercap eric respirat ory failure 960565244 Active 2022 CHRONIC RESPIRAT ORY FAILURE WITH HYPERCAP BOOGIE; Recorded 10/02/19 1:57PM by Nazia Jha PA-C, Office Visit; Promoted ; acuity set as *; NAZIA JHA PA-C [address] [place], [address] , [facility] 16:20:56 Neuropat hy due to type 2 diabetes mellitus 43905660089 9106 Active 2022 NEUROPAT HY, DIABETIC ; Recorded 10/02/19 1:56PM by Nazia Jha PA-C, Office Visit; Promoted ; acuity set as *; NAZIA JHA PA-C [address] [place], [address] , [facility] 16:20:56 Acute exacerba tion of chronic obstruct jesus manuel pulmonar y disease 090034680 Completed 202210/01/2022 COPD WITH ACUTE EXACERBA TION - Status is Inactive ; Recorded 10/02/19 1:56PM by Nazia Jha PA-C, Annotati on/Adden dum; Promoted ; acuity set as *; LISSA balderas, [facility] 5 10:51:53 Chronic obstruct jesus manuel pulmonar y disease 41099221 Active 2022 NAZIA JHA PA-C [address] [place], [address] , [facility] 16:20:56 Insomnia 507188152 Active 2022 NAZIA JHA PA-C [address] [place], [address] , [facility] 16:20:56 Depressi ve disorder 44112679 Active 2022 NAZIA JHA PA-C [address] [place] [address], [address] , [facility] 16:20:56 Type 2 diabetes mellitus 89389831 Active 2022 LISSA balderas, [facility] 21:03:25 Essentia l hyperten gricelda 96577811 Active 2022 NAZIA JHA PA-C [address] [place] [address], [address] , [facility] 16:20:56 COVID-19 702636943 Completed 202209/28/2024 NAZIA JHA PA-C [address] [place], [address] , [facility] 16:20:06 Diabetes mellitus 63384492 Active 2022 LISSA balderas [facility] 5 11:25:06 Hypothyr oidism 12004387 Active 2022 NAZIA JHA PA-C [address] [place], [address] , [facility] 16:20:56 Generali zed headache 014482497 Active 2023 NAZIA JHA PA-C [address] [place], [address] , [facility] 16:20:56 Osteoart hritis 779068651 Active 2023 LISSA balderas, [facility] 21:03:18 Chronic kidney disease stage 3B 843326345 Active 2023 NAZIA JHA PA-C [address] [place], [address] , [facility] 16:20:56 Thrombop hlebitis 21535669 Completed 202309/28/2024 NAZIA JHA PA-C [address] [place] [address], [address] , [facility] 16:20:06 Acute upper respirat ory infectio n 94425636 Completed 202309/28/2024 NAZIA JHA PA-C [address] [place] [address], [address] , [facility] 5 16:20:06 Muscle spasm of cervical muscle of neck 37820760754 4 Active 2023 NAZIA JHA PA-C [address] [place], [address] , [facility] 5 16:20:56 Sebaceou s cyst of skin 675666852 Completed 202309/28/2024 NAZIA JHA PA-C [address] [place], [address] , [facility] 16:20:06 Acute respirat ory syncytia l virus bronchit is 542697020 Completed 202309/28/2024 NAZIA JHA PA-C [address] [place], [address] , [facility] 16:20:06 Herpes zoster 8218282 Active 2024 NAZIA JHA PA-C [address] [place], [address] , [facility] 16:20:56 Irregula r heart beat 828701687 Active 2024 LISSA HAEFMARI null, [facility] 5 10:52:27 Anxiety 76070752 Active 2024 LISSA HAEFFHOUSTON null, [facility] 10:52:10 Moderate chronic obstruct jesus manuel pulmonar y disease 232079768 Active 2024 LISSA HAEFFNER null, [facility] 10:52:32 Chronic respirat ory failure 43949836 Active 2024 LISSA HAEFFNER null, [facility] 10:52:21 Pain of left calf 84680323022 17465 Active 2024 Ty Gottlieb MD [address] [place], [address] , [facility] 08:47:17 Generali zed edema 088620121 Active 2024 LISSA HAEFFHOUSTON [facility] 5 11:56:19 Problem Notes None recorded. Procedures Surgical History Date Name Laterality Status Provider Name and Address Organization Details Recorded Time 02/08/20 25 echocardiography completed NAZIA JHA PA-C [address] [place], [address], [facility] 02/10/2025 11:05:14 10/25/19 21 colonoscopy completed LISSA [facility], [place] 04/23/2023 08:24:42 09/04/19 16 bone density scan completed [facility], [place] 04/23/2023 08:24:58 Imaging Results None recorded. Procedure Notes None recorded. Medical Equipment None Reported. Allergies Allergen ID Allergen Name Allergen Category Reaction Reaction Severity Criticality Documentation Date Start Date Code Code System Note Provider Name and Address Organization Details Recorded Time 05914 metformin hydrochlo ride medicatio n diarrhea severe high 02/28/2023 68745 3 RxNorm Jaci Pollock [facility] 4 07:52:40 Medications Name Sig Start Date Stop Date Status Note LastModified by Organization Details LastModified Time losartan 50 mg tablet TAKE 1 TABLET BY MOUTH ONCE DAILY TAKE WITH 100MG LOSARTAN active Not Available Not Available No t Available Vancocin 125 mg capsule Take 1 capsule 4 times a day by oral route. 10/08 completed Not Available Not Available Not Available Santyl 250 unit/gram topical ointment active Not Available Not Available Not Available furosemid e 40 mg tablet Take 1 tablet by mouth once daily active Not Available Not Available No t Available silver sulfadiaz ine 1 % topical cream active Not Available Not Available Not Available carvedilo l 6.25 mg tablet active Not Available Not Available Not Available atorvasta tin 20 mg tablet Take 1 tablet by mouth once daily active Not Available Not Available No t Available tizanidin e 2 mg tablet Take 1 tablet every day by oral route in the evening for 30 days. active Not Available Not Available No t Available albuterol sulfate 2.5 mg/3 mL (0.083 %) solution for nebulizat ion Inhale 3 mL 3 times a day by nebuliza tion route as needed. active Not Available Not Available No t Available valacyclo vir 1 gram tablet active Not Available Not Available Not Available sucralfat e 100 mg/mL oral suspensio n TAKE 10 ML BY MOUTH TWICE DAILY 04/23 completed Not Available Not Available Not Available sucralfat e 1 gram tablet 04/23 completed Not Available Not Available Not Available lisinopri l 20 mg tablet active Not Available Not Available Not Available ondansetr on HCl 4 mg tablet active Not Available Not Available No t Available prednison e 20 mg tablet TAKE 2 TABLETS BY MOUTH ONCE DAILY 04/23 completed Not Available Not Available Not Available isosorbid e mononitra te ER 30 mg tablet,ex tended release 24 hr active Not Available Not Available Not Available metolazon e 5 mg tablet TAKE 1/2 (ONE-FLAKO F) TABLET BY MOUTH ONCE DAILY . APPOINTM ENT REQUIRED FOR FUTURE REFILLS 07/08 completed Not Available Not Available Not Available clopidogr el 75 mg tablet TAKE 1 TABLET BY MOUTH ONCE DAILY active Not Available Not Available No t Available chlorthal idone 25 mg tablet Take 1 tablet every day by oral route. active Not Available Not Available No t Available sulfameth oxazole 800 mg-trimet hoprim 160 mg tablet active Not Available Not Available Not Available tramadol 50 mg tablet 1 PO Q4h prn 2024 active Not Available Not Available Not Avai lable carvedilo l 3.125 mg tablet TAKE 1 TABLET BY MOUTH EVERY 12 HOURS active Not Available Not Available No t Available famotidin e 20 mg tablet Take 1 tablet by mouth twice daily active Not Available Not Available No t Available magnesium oxide 400 mg (241.3 mg magnesium ) tablet Take 0.5 tablets twice a day by oral route. active Not Available Not Available No t Available dicyclomi ne 20 mg tablet Take 1 tablet 3 times a day by oral route as needed. active Not Available Not Available No t Available amlodipin e 10 mg tablet Take 1 tablet every day by oral route. active Not Available Not Available No t Available levothyro xine 50 mcg tablet Take 1 tablet every day by oral route for 30 days. active Not Available Not Available No t Available cephalexi n 500 mg capsule 04/23 completed Not Available Not Available Not Available trazodone 150 mg tablet TAKE 1 TABLET BY MOUTH AT BEDTIME active Not Available Not Available No t Available metformin 1,000 mg tablet 04/23 completed Not Available Not Available Not Available buspirone 10 mg tablet Take 1 tablet by mouth twice daily active Not Available Not Available No t Available lisinopri l 10 mg tablet active Not Available Not Available Not Available lansopraz ole 30 mg capsule,d elayed release daily 04/23 completed Not Available Not Available Not Available hydroxyzi ne HCl 25 mg tablet TAKE 1 TABLET BY MOUTH THREE TIMES DAILY NEEDED FOR ANXIETY; TAKE ONLY NEEDED active Not Available Not Available No t Available hydralazi ne 50 mg tablet Take 1 tablet every 6 hours by oral route. active Not Available Not Available No t Available clonidine 0.3 mg/24 hr weekly transderm al patch Apply 1 patch every 12 hours by transder mal route. active Not Available Not Available No t Available mupirocin 2 % topical ointment two times daily 04/23 completed Not Available Not Available Not Available nystatin 100,000 unit/gram topical powder active Not Available Not Available Not Available albuterol sulfate HFA 90 mcg/actua tion aerosol inhaler INHALE 2 PUFFS BY MOUTH EVERY 4 HOURS active Not Available Not Available No t Available losartan 100 mg tablet TAKE 1 TABLET BY MOUTH ONCE DAILY TAKE WITH 50MG LOSARTAN TABLET active Not Available Not Available No t Available doxycycli ne hyclate 100 mg tablet 04/20 completed Not Available Not Available Not Available spironola ctone 50 mg tablet active Not Available Not Available No t Available amoxicill in 875 mg-potass ium clavulana te 125 mg tablet 10/27 completed Not Available Not Available Not Available Glucose Test strips two times daily 04/23 completed vo KM/; Recorded 09/26/19 23 9:12AM by Lissa John LPN, Office Visit; Refill Quantity : 60; Each; Not Available Not Available Not Available cyclobenz aprine 5 mg tablet active Not Available Not Available No t Available Klor-Con M20 mEq tablet,ex tended release TAKE 1 BY MOUTH TWICE DAILY active Not Available Not Available No t Available Answer Blood Glucose System kit two times daily 04/23 completed vo KM/dh; Recorded 09/26/19 9:12AM by Lissa John LPN, Office Visit; Refill Quantity : 0; Not Available Not Available Not Available duloxetin e 30 mg capsule,d elayed release daily 07/08 completed vo KM/; 88773; Recorded 09/26/19 9:12AM by Lissa John LPN (Authori raoul through Nazia Jha PA-C), Office Visit; Refill Quantity : 3; Capsule; Not Available Not Available Not Available magnesium two times daily 04/23 completed Recorded 09/26/19 9:12AM by Lissa John LPN, Office Visit; Refill Quantity : 60; Tablet; Not Available Not Available Not Available acetamino phen every six hours, as needed 04/23 completed 93362; Recorded 05/07/20 7:40AM by Lissa John LPN (Authori raoul through Nazia Jha PA-C), Office Visit; Refill Quantity : 0; Not Available Not Available Not Available Lipitor daily 04/23 completed vo KM/dh /dewayne; Recorded 09/26/19 9:12AM by Lissa John LPN, Office Visit; Refill Quantity : 90; Tablet; Not Available Not Available Not Available hydroxyzi ne HCl three times daily, as needed 04/23 completed take only as needed km/; 57075; Recorded 08/05/19 3:54PM by Lissa John LPN (Authori raoul through Nazia Jha PA-C), Refill Request; Refill Quantity : 90; Tablet; Not Available Not Available Not Available albuterol sulfate every six hours, as needed 04/23 completed vo KM/dh; 08386; Recorded 10/21/19 5:03PM by Lissa John LPN (Authori raoul through Nazia Jha PA-C), Refill Request; Refill Quantity : 25; Unspecif ied; Not Available Not Available Not Available furosemid e once daily 04/23 completed [facility]/ /barrow; Recorded 08/05/19 3:51PM by Lissa John LPN, Refill Request; Refill Quantity : 90; Tablet; Not Available Not Available Not Available carvedilo l every twelve hours 04/23 completed [facility]/; 47309; Recorded 09/09/19 4:26PM by Shaan Meadows (Authori zed through Nazia Jha PA-C), Office Visit; Refill Quantity : 60; Tablet; Not Available Not Available Not Available Plavix daily 04/23 completed [facility]/ /LONG; 03010; Recorded 03/03/20 4:22PM by Lissa John LPN (Authori zed through Nazia Jha PA-C), Refill Request; Refill Quantity : 30; Tablet; Not Available Not Available Not Available lisinopri l daily 04/23 completed [facility]//sw ift; 30897; Recorded 07/11/20 2:40PM by Federico santizo (Authori zed through Nazia Jha PA-C), Office Visit; Refill Quantity : 90; Tablet; Not Available Not Available Not Available Klor-Con two times daily 04/23 completed cs/smf; 22236; Recorded 07/07/20 2:41PM by Yoli Torres RN (Authori zed through Kendall Barrow, ), Refill Request; Refill Quantity : 60; Tablet; Not Available Not Available Not Available metolazon e daily 04/23 completed [facility]/; 75212; Recorded 09/09/19 4:26PM by Shaan Meadows (Authori zed through Nazia Jha PA-C), Office Visit; Refill Quantity : 15; Tablet; Not Available Not Available Not Available Sucralfat e Suspensio n two times daily 04/23 completed vo ALY/govind; 64088; Recorded 08/12/19 11:50AM by Lissa John LPN (Authori raoul through Nazia Jha PA-C), Annotati on/Adden dum; Refill Quantity : 600; Millilit er; Not Available Not Available Not Available Lantus U-100 Insulin 10units hs 02/14 completed Not Available Not Available Not Available Trazodone at bedtime 04/23 completed vo / /DEWAYNE; 91608; Recorded 08/05/19 3:54PM by Lissa John LPN (Authori raoul through Nazia Jha PA-C), Refill Request; Refill Quantity : 30; Tablet; Not Available Not Available Not Available cephalexi n 750 mg capsule TAKE 1 CAPSULE BY MOUTH THREE TIMES DAILY 04/23 completed Not Available Not Available Not Available Januvia 50 mg tablet daily 04/23 completed vo / /pushpa; 25811; Recorded 11/06/19 7:42AM by Lissa John LPN (Authori raoul through Nazia Jha PA-C), Office Visit; Refill Quantity : 90; Tablet; Not Available Not Available Not Available Lantus Solostar U-100 Insulin 100 unit/mL (3 mL) subcutane ous pen active Not Available Not Available Not Available Humalog KwikPen (U-100) Insulin 100 unit/mL subcutane ous Inject by subcutan eous route. 07/08 completed per ss Not Available Not Available Not Available Anoro Ellipta 62.5 mcg-25 mcg/actua tion powder for inhalatio n Inhale 1 puff every day by inhalati on route as directed for 30 days. 07/08 completed Not Available Not Available Not Available Anoro Ellipta daily 04/23 completed /govind; 27482; Recorded 10/21/19 5:03PM by Lissa John LPN (Authori raoul through Nazia Jha PA-C), Refill Request; Refill Quantity : 1; Unspecif ied; Not Available Not Available Not Available Trulicity 0.75 mg/0.5 mL subcutane ous pen injector active Not Available Not Available Not Available Trelegy Ellipta 100 mcg-62.5 mcg-25 mcg powder for inhalatio n active Not Available Not Available Not Available insulin glargine- yfgn (U-100) 100 unit/mL (3 mL) subcutane ous pen active Not Available Not Available Not Available Visine Dry Eye Relief 1 % drops Apply 1 drop twice a day by ophthalm ic route as needed. 07/08 completed Not Available Not Available Not Available Vitals Date Recorded Body height Body mass index (BMI) Body weight Body temperature Heart rate Oxygen saturation Oxygen saturation in Arterial blood by Pulse oximetry Systolic And Diastolic Provider Name and Address Organization Details Last Updated DateTime 5 154.94 cm 43.5 kg/m2 206438. 25 g 97.8 [degF] 78 /min 96 % 96 % 138/68 mm[Hg] KERRY ROY [facility] 5 13:00:21 Date Recorded Body height Body mass index (BMI) Body weight Oxygen saturation Oxygen saturation in Arterial blood by Pulse oximetry Heart rate Respiratory rate Body temperature Systolic And Diastolic Provider Name and Address Organization Details Last Updated DateTime 5 154.94 cm 43.5 kg/m2 102384. 25 g 90 % 90 % 63 /min 20 /min 97.8 [degF] 140/60 mm[Hg] [facility] 11:13:00 Date Recorded Body height Body mass index (BMI) Body weight Oxygen saturation Oxygen saturation in Arterial blood by Pulse oximetry Heart rate Respiratory rate Body temperature Systolic And Diastolic Provider Name and Address Organization Details Last Updated DateTime 5 154.94 cm 41.9 kg/m2 111009. 51 g 94 % 94 % 91 /min 20 /min 97.4 [degF] 136/74 mm[Hg] [facility] 5 10:08:15 Date Recorded Body height Body mass index (BMI) Body weight Body temperature Respiratory rate Heart rate Oxygen saturation Oxygen saturation in Arterial blood by Pulse oximetry Systolic And Diastolic Provider Name and Address Organization Details Last Updated DateTime 5 154.94 cm 42.9 kg/m2 512080. 47 g 97.1 [degF] 20 /min 75 /min 97 % 97 % 140/62 mm[Hg] ALIYAH PHILIP [facility] 5 12:38:44 Date Recorded Body height Body mass index (BMI) Body weight Heart rate Respiratory rate Body temperature Systolic And Diastolic Provider Name and Address Organization Details Last Updated DateTime 5 154.94 cm 44 kg/m2 636028. 02 g 73 /min 20 /min 97 [degF] 142/62 mm[Hg] LISSA JOHN [facility] 5 11:52:43 Social History Question Answer Notes LastModified by [employer] Details LastModified Time Tobacco Smoking Status Never Smoker NAZIA JHA PA-C [address] [place] [address], [address], [facility]ieL[facility]ieC[facility]ie 04/23/2023 15:25:00 What Was The Date Of Your Most Recent Tobacco Screening? 04/23/2023 [email or web address] Information not available 04/23/2023 Has Tobacco Cessation Counseling Been Provided? Yes Information not available 04/23/2023 On What Date Was Tobacco Cessation Counseling Provided? 04/22/2023 [email or web address] Information not available 04/23/2023 How Many Years Have You Used Smokeless Tobacco? 50 [email or web address] Information not available 04/23/2023 Sex: Unknown Functional Status Question Answer Note LastModified by [employer] Details LastModified Time Do you or have you ever used any other forms of tobacco or nicotine? Yes [email or web address] Information not available 04/23/2023 What is your level of alcohol consumption? None [email or web address] Information not available 04/23/2023 Do you or have you ever used smokeless tobacco? Current snuff user [email or web address] Information not available 04/23/2023 Do you or have you ever used e-cigarettes or vape? Never used electronic cigarettes [email or web address] Information not available 04/23/2023 Mental Status None recorded. Family History Nothing Reported Notes:Father: Renal Disease Lung Cancer: Mother Mother: Lung Cancer: Denied Sister: Lung Cancer: Denied Medical History No medical history recorded. Gynecological HistoryNo gynecological history recorded. Obstetrics History GPAL:G 0 P 0 0 0 0 Immunizations Vaccine Type Date Status Note Provider Nam e and Address Organization Details Recorded Time zoster recombinant 0 completed NAZIA JHA PA-C [address] [place], [address], [facility] 04/23/2023 12:56:21 Influenza, high-dose, quadrivalent, PF 0 completed NAZIA JHA PA-C [address] [place], [address], [facility] 04/23/2023 12:56:21 Pneumococcal conjugate PCV 13 5 completed NAZIA JHA PA-C [address] [place], [address], [facility], [facility] 04/23/2023 12:56:21 Influenza, adjuvanted, quadrivalent, PF 3 completed NAZIA JHA PA-C [address] [place], [address], [facility] 04/23/2023 15:22:00 zoster recombinant 0 completed NAZIA JHA PA-C [address] [place], [address], [facility] 04/23/2023 12:56:21 Tdap 0 marissa JHA PA-C [address] [place], [address], [facility] 04/23/2023 12:56:21 Tdap 6 completed Not Available [facility] 09/23/2023 10:50:53 Influenza, split virus, trivalent, preservative 3 completed Not Available [facility] 09/23/2023 10:50:53 pneumococcal polysaccharide PPV23 3 completed Not Available [facility] 09/23/2023 10:50:53 Influenza, split virus, trivalent, preservative 6 completed Not Available [facility] 09/23/2023 10:50:53 Past Encounters Encounter ID Performer Location Encounter Start Date Encounter Closed Date Diagnosis/Indication Diagnosis SNOMED-CT Code Diagnosis ICD10 Code Diagnosis IMO Codes Diagnosis Note [id number] NAZIA JHA PA-C [facility] ([facility]) [address] [place] [address] 79984-930 5 04/23/2023 11:32:36 04/23/2023 16:04:22 Dry eyes 699907022 H04.121 Chronic ob structive pulmonary disease 87269323 J44.9 Needs infl uenza immunization 717900328 Z28.39 Chronic diarrhea 0874046 09 K52.9 Chronic sy stolic heart failure 221486198 I50.22 Hyperglycemia 51667300 R 73.9 Adult heal th examination 266618750 Z00.00 [id number] NAZIA JHA PA-C [facility] ([facility]) [address] [place] [address] [id number] 5 07/08/2023 12:48:03 07/27/2023 08:17:17 Diabetes mellitus 35559992 E11.9 discharge records and meds reviewed. labs and vitals reviewed. Type 2 [place] betes mellitus 44247786 E11.9 d/c humalog start lantus 10units at hs Essential hypertension 55415304 I10 COVID-19 810311153 U07.1 Acute resp iratory failure 38716507 J96.00 [id number] Ty Gottlieb MD [facility] ([facility]) [address] [place] [address] [phone] 5 07/15/2023 09:21:48 07/15/2023 14:13:24 Need for personal care assistance [id number] 7287895 Z74.1 Lives in detention 16 8594052 Z76.89 Chronic hy percapnic respiratory failure 969569635 J96.12 Chronic sy stolic heart failure 932037903 I50.22 Coronary atherosclerosis 713649366 I25.10 Diabetes mellitus 557743 09 E11.9 recent A1c was 7.3. Hypertensive disorder 38 654143 I10 Hypothyroidism 40106154 E03.9 [id number] Ty Gottlieb MD [facility] ([facility]) [address] [place] [address] [id number] 5 08/12/2023 07:45:19 08/16/2023 20:52:55 Need for personal care assistance [phone] 7363314 Z74.1 Lives in detention 16 3764586 Z76.89 Chronic hy percapnic respiratory failure 643588284 J96.12 Chronic ob structive pulmonary disease 20277131 J44.9 Chronic sy stolic heart failure 664069586 I50.22 stable at present Diabetes mellitus 570226 09 E11.9 recent A1c was 7.3. Essential hypertension 02123083 I10 Headache 68432130 R51.9 [id number] Ty Gottlieb MD [facility] ([facility]) [address] [place] [address] [id number] 5 09/16/2023 07:48:29 09/16/2023 18:30:41 Need for personal care assistance [id number] 3831714 Z74.1 Pt. Not seen today Lives in detention 16 3744544 Z76.89 [id number] Ty Gottlieb MD [facility] ([facility]) [address] [place] [address] [id number] 5 09/17/2023 07:51:53 09/21/2023 09:35:34 Need for personal care assistance [phone] 7451172 Z74.1 Lives in detention 16 4275036 Z76.89 Neuropathy due to type 2 diabetes mellitus 9374800418 93571 E11.40 Severe obesity 705848232 1 9104 E66.01 Type 2 [place] betes mellitus 93684144 E11.9 Abdominal pain 82974917 R10.9 possible constipati on with loose stools or gastropare sis. KUB xray was ordered. [id number] NAZIA JHA PA-C [facility] ([facility]) [address] [place] [address] [phone] 5 09/23/2023 10:50:46 10/10/2023 19:12:48 Diabetes mellitus 39875222 E11.9 CBC/CMP/A1 C Q 3 MONTHS TSH AND LIPIDS Q 6 MONTHS Headache 13203578 R51.9 NICOTINE PATCH 21MG X 4 WEEKS 14MG QD X 2 WEEKS AND 7MG X 2 WEEKS [id number] NAZIA JHA PA-C [facility] ([facility]) [address] [place] [address] [phone] 5 09/30/2023 12:10:47 10/10/2023 22:03:33 Hyperkalemia 55463194 E87.5 d/c chlorthali done and tizanidine ,BMP one weekdecrea se mag 200mg qd, Headache 10456611 R51.9 pt thinks nicotiene patch is making POWER worse. d/c nicotine patch [id number] NAZIA JHA PA-C [facility] ([facility]) [address] [place] [address] [id number] 5 10/07/2023 10:31:49 10/11/2023 20:18:42 Generalized headache 850291774 R51.9 pt/ot biofreeze, tramadol 50mg po qd prn Diabetic p eripheral neuropathy 761848619 E11.40 CCA form filled out during today's office visit Type 2 [place] betes mellitus 16698591 E11.69 Body mass index 40+ - severely obese 665944792 Z68.41 Coronary arteriosclerosis 16238940 I25.10 Essential hypertension 07188625 I10 Chronic ob structive pulmonary disease 12588861 J44.9 trelegy Abnormal gait 13355456 R 26.2 Dependence on enabling machine or device 212337233 Z99.89 Impaired mobility 608095 05 Z74.09 [id number] NAZIA JHA PA-C [facility] ([facility]) [address] [place] [address] [phone] 5 10/21/2023 10:44:31 11/09/2023 09:46:35 Chronic kidney disease stage 3B 676989184 N18.32 Hyperkalemia 87246747 E8 7.5 cbc/bmp/ma g Thrombophlebitis 7593793 1 I80.9 right elbow wound care and silvaddene cream. Wound care team will start seeing her next week. Hospital i npatient stay within past 30 days [id number] 106 Z76.89 [id number] NAZIA JHA PA-C [facility] ([facility]) [address] [place] [address] [id number] 5 10/28/2023 15:29:13 11/13/2023 17:13:59 Diabetes mellitus 83016425 E11.9 cbg bid Headache 57904133 R51.9 Hypomagnesemia 511849905 E83.42 vitals every day Dysphagia 46989536 R13.[address]/pt/bmp/ mg tomorrow [id number] Ty Gottlieb MD [facility] ([facility]) [address] [place] [address] [id number] 5 11/04/2023 07:56:22 11/04/2023 18:02:13 Need for personal care assistance [phone] 2945828 Z74.1 Lives in detention 16 8854127 Z76.89 Depressive disorder 3548 9007 F32.A Diabetes mellitus 824363 09 E11.9 recent A1c was 7.3. 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 Will check xray. [id number] NAZIA JHA PA-C [facility] ([facility]) [address] [place] [address] [phone] 5 11/11/2023 13:21:29 11/27/2023 14:34:29 Congestive heart failure 03952100 I50.9 LISINOPRIL 10MG QD, COREG 3.125MG BID MG AND BMPrestart meds that were stoppd due to abnormal K at last hospitaliz ation [id number] Ty Gottlieb MD [facility] ([facility]) [address] [place] [address] [phone] 5 01/13/2024 09:12:41 01/13/2024 17:07:01 Need for personal care assistance [phone] 8812153 Z74.1 Lives in detention 16 1273575 Z76.89 Chronic hy percapnic respiratory failure 994461845 J96.12 Chronic ki dney disease stage 3B 271646968 N18.32 Chronic ob structive pulmonary disease 40208437 J44.9 Essential hypertension 81363167 I10 [id number] NAZIA JHA PA-C [facility] ([facility]) [address] [place] [address] [phone] 5 01/20/2024 13:35:09 02/08/2024 07:06:36 Acute upper respiratory infection 30906605 J06.9 doxycyclin e 100mg bid x 7 dayspromet hazine dm 1 tsp q 6 hours prn x 7 daysMOnito r and report any decline in condition [id number] Ty Gottlieb MD [facility] ([facility]) [address] [place] [address] [id number] 5 03/23/2024 08:09:18 03/28/2024 11:24:38 Muscle spasm of cervical muscle of neck 0819807141 04 M62.838 Will get a PT eval and treat order for her neck pain and spasm. Hypertensive disorder 38 738099 I10 Headache 60831029 R51.9 Need for p ersonal care assistance [phone] 2591370 Z74.1 Lives in detention 16 7797753 Z76.89 [id number] NAZIA JHA PA-C [facility] ([facility]) [address] [place] [address] [id number] 5 04/20/2024 11:55:49 05/01/2024 21:49:40 Sebaceous cyst of skin 699566991 L72.3 I AND D NEXT WEEK if not improved. [id number] Ty Gottlieb MD [facility] ([facility]) [address] [place] [address] [id number] 5 05/04/2024 11:40:31 05/09/2024 11:55:46 Need for personal care assistance [id number] 1550445 Z74.1 Lives in detention 16 8981690 Z76.89 Chronic ki dney disease stage 3B 146913189 N18.32 Diabetes mellitus 682282 09 E11.9 Essential hypertension 30288709 I10 Muscle spa sm of cervical muscle of neck 0636652879 04 M62.838 Continue present management . Osteoarthritis 005282232 M19.90 Chronic ob structive pulmonary disease 26966891 J44.9 stable. [id number] NAZIA JHA PA-C [facility] ([facility]) [address] [place] [address] [id number] 5 05/11/2024 12:20:50 06/05/2024 22:17:10 Diabetes mellitus 60485727 E11.9 CMP/MG/A1C TRULICITY .75MG SC WEEKLY Essential hypertension 31919464 I10 LISINOPRIL 20MG QD, COREG 6.25MG BID Chronic ob structive pulmonary disease 11525346 J44.9 trelegy [id number] NAZIA JHA PA-C [facility] ([facility]) [address] [place] [address] [id number] 5 07/06/2024 12:08:59 07/31/2024 07:56:21 Neck pain 82250861 M54.2 PT,CYCLOBE NZAPRINE 5MG 1 PO QD PRNshe already gets Tramadol routinely. [id number] Ty Gottlieb MD [facility] ([facility]) [address] [place] [address] [id number] 5 07/13/2024 08:03:48 07/15/2024 08:09:54 Need for personal care assistance [phone] 4047324 Z74.1 Lives in detention 16 8433887 Z76.89 Chronic ki dney disease stage 3B 909264221 N18.32 Chronic ob structive pulmonary disease 02484818 J44.9 stable. 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 Acute resp iratory syncytial virus bronchitis 344066671 J20.5 monitor. ER records reviewed. notify MD or send ER if any s/s of respirator y decline [id number] NAZIA JHA PA-C [facility] ([facility]) [address] [place] [address] [place] [address]-874 5 08/10/2024 10:33:56 08/26/2024 16:10:02 Herpes zoster 3219014 B02.9 valcyclovi r 1000mg tid [id number] Ty Gottlieb MD [facility] ([facility]) [address] [place] [address] 5 09/14/2024 09:24:12 09/16/2024 07:26:55 Need for personal care assistance [phone] 7652426 Z74.1 Lives in detention 16 5858725 Z76.89 Acute resp iratory failure 54043753 J96.00 greatly imoroved. Chronic ki dney disease stage 3B 406938623 N18.32 Chronic ob structive pulmonary disease 11773239 J44.9 stable. Recent RSV, doing better now. [id number] NAZIA JHA PA-C [facility] ([facility]) [address] [place] [address] 5 09/28/2024 10:42:33 09/28/2024 16:26:45 Adult health examination 701424505 Z00.00 H&P pt labs and meds and vitals are reviewed. Her BP and A1C and lipid are all at goalShe is stable Diabetes mellitus 169802 09 E11.9 A1C 6.3 Neck pain 02984243 M54.2 TRAZADONE 50MG AT HS PRN X 14 DAYS Hyperkalemia 18559651 E8 7.5 REPEAT K+ 5.4 IN 2 WEEKS WITH MG Chronic sy stolic heart failure 350060976 I50.22 Chronic ob structive pulmonary disease 20847968 J44.9 Chronic ki dney disease stage 3B 202521296 N18.32 Chronic hy percapnic respiratory failure 500002173 J96.12 Coronary atherosclerosis 430763787 I25.10 Depressive disorder 3548 9007 F32.A Essential hypertension 44832433 I10 LISINOPRIL 20MG QD, COREG 6.25MG BID Hyperlipidemia 17969555 E78.5 Hypothyroidism 54379428 E03.9 Insomnia 473023033 G47.0 0 Neuropathy due to type 2 diabetes mellitus 1478050737 91709 E11.40 Severe obesity 153277245 1 9104 E66.01 Type 2 [place] betes mellitus 69974831 E11.69 Body mass index 40+ - severely obese 031710983 Z68.42 [id number] NAZIA JHA PA-C [facility] ([facility]) [address] [place] [address] 5 10/26/2024 10:59:11 10/26/2024 16:46:46 Pneumonia 181283642 J18.9 ON LEVAQUIN Post-disch arge follow-up 061989457 Z09 med records reviewed and meds reconciled . Irregular heart beat 361 896209 R00.8 CBC/BMP/MA G/ EKG / 3 day HOLTERD/C TRAZODONE AND CYCLOBENZA MANNIE Chronic ob structive pulmonary disease 09831457 J44.9 Difficulty walking 30630 2002 R26.2 CCA form filled out during today's office visit Impaired mobility 232541 05 Z74.09 Dependence on wheel chair 951702814 Z99.3 Long-term oxygen therapy 295158114 Z99.81 Mood disorder 76554420 F 33.2 [id number] NAZIA JHA PA-C [facility] ([facility]) [address] [place] [address] 5 11/02/2024 10:49:13 11/05/2024 06:20:38 Acute kidney injury 83116437 N17.9 cr improved 1.86 to 1.8 increase in k+ baseline is .8cbc/bmp/ mg in 1 week [id number] Ty Gottlieb MD [facility] ([facility]) [address] [place] [address] 5 11/16/2024 08:13:35 11/16/2024 23:01:47 Chronic obstructive pulmonary disease 22317908 J44.9 stable. Will add BID albuterol nebulizers for now with QID prn. Chronic sy stolic heart failure 120122644 I50.22 stable at present Diabetes mellitus 533285 09 E11.9 Essential hypertension 76032725 I10 Muscle spa sm of cervical muscle of neck 0723229894 04 M62.838 Continue present management . Osteoarthritis 096219165 M19.90 Need for p ersonal care assistance [id number] 5497253 Z74.1 Lives in detention 16 1619290 Z76.89 [id number] NAZIA JHA PA-C [facility] ([facility]) [address] [place] [address] 74267-124 5 12/07/2024 10:57:36 12/23/2024 16:57:33 Anxiety 38023051 F41.9 58742 CYMBALTA 60MG QD Pt always wants more meds to sleep. last time I added tranzadone she had acute delirium and ended up in the hospital. Diabetes mellitus 485418 09 E11.9 INCREASE TRULICITY 1.5MG Q WEEKLY Pain 84929978 R52 845389 TIZANADINE 2MG Q 8 HOURS PRN [id number] NAZIA JHA PA-C [facility] ([facility]) [address] [place] [address] [id number] 5 12/28/2024 10:37:08 01/09/2025 10:24:16 Acute exacerbation of chronic obstructive pulmonary disease 299396378 J44.1 336161 doxy 100mg po bid x 7 d and prednisone 40 mg po qd x 5dshe has neb tx tid already.rupa adler for worsening s/s of respirator y distress [id number] Ty Gottlieb MD [facility] ([facility]) [address] [place] [address] [id number] 5 01/11/2025 08:38:17 01/13/2025 09:16:55 Lives in detention 566596216 Z78.9 [id number] [facility] [id number] 1117186 Z74.1 [id number] Chronic ki dney disease stage 3B 500239499 N18.32 Chronic hy percapnic respiratory failure 920233481 J96.12 Chronic sy stolic heart failure 322294554 I50.22 stable at present Coronary atherosclerosis 129255353 I25.10 Diabetes mellitus 656953 09 E11.9 Essential hypertension 32350610 I10 [id number] NAZIA JHA PA-C [facility] ([facility]) [address] [place] [address] 67477-294 5 02/08/2025 10:24:56 02/28/2025 14:46:20 Moderate chronic obstructive pulmonary disease 660502880 J44.9 948958 prednisone 40mg qd x 5 days,d/c trelegy start budosenide 1mg bid per neb and formotorol 15mcg bid pr neb, yulperi 175mg qd per neb Diabetes mellitus 237100 09 E11.9 03684 Continue to monitor sugars and A1C . ON trulicity. [id number] NAZIA JHA PA-C [facility] ([facility]) [address] [place] [address] 85791-358 5 02/22/2025 10:01:41 03/01/2025 17:41:07 Chronic respiratory failure 88560144 J96.10 0855961 Bilateral pneumonia 4076 00572 J18.9 201168875 ZOSYN AND ZPACK IN HOSPITALLA UGMENTIN AND PREDNISONE NOW dooing great. Post-disch arge follow-up 747484825 Z09 [id number] med records reviewed and meds reconciled . [id number] Ty Gottlieb MD [facility] ([facility]) [address] [place] [address] 00948-626 5 03/08/2025 12:13:40 03/08/2025 16:05:03 Need for personal care assistance [phone] 5522198 Z74.1 [id number] Lives in detention 16 3854180 Z78.9 6836735 Essential hypertension 77789851 I10 Chronic sy stolic heart failure 536896613 I50.22 stable at present Chronic ob structive pulmonary disease 76383927 J44.9 Will check CXR due to left chest pain and recent hospitaliz ation from COPD/CHF exacerbati on. Pain of left calf 528746 8405 752630 M79.662 [id number] With edema and recent hospitaliz ation. WIll check venous doppler to ensure no DVT. [id number] NAZIA JHA PA-C [facility] ([facility]) [address] [place] [address] 11347-592 5 03/15/2025 10:55:06 03/21/2025 11:39:57 Moderate chronic obstructive pulmonary disease 523427581 J44.9 [id number] D/C YULPERI (not covered by insurance) START SPIRIVA 1 PUFFQD Generalized edema 782694 008 R60.1 03577 INCREASSE LASIX 40MG BID Health Concerns Section Related Observation LastModified by Organization Detai ls LastModified Time None Recorded Concern Status LastModified by Organization Details LastModified Time None Recorded Advance Directives Directive None Recorded Payers Insurance Date Sequence Insurance Name Policy Number Policy Diggs Covered Member ID Diggs Member ID Guarantor Name 03/07/2025 [place] [facility] ([facility]) Lauren Jose [id number] Lauren Jose 03/21/2025 1 [facility] (MEDICARE REPLACEMENT/A DVANTAGE - PPO) [id number] Lauren Jose [id number] Lauren Jose 03/07/2025 2 [place] Lauren Jose [id number] Lauren Jose Notes Date Note Type Note Provider Name and Address Organization Details Recorded Time 01/11/2025 text/html No new problems or concerns. Ty Gottlieb MD [address] [place] [address], [phone], [facility] 01/11/2025 14:07:24 02/08/2025 text/html COPDReported by PatientHPI:For associated symptoms, patient reportsdyspnea,dyspnea during exertion,decrease in exercise capacity, andfatigue. For onset/timing, patient reportsmultiple times per day. For duration, patient reportschronic,has noted for years, andconstant. For severity, patient reportsmoderate. For alleviating factors, patient reportsrelieved with oxygen. worsening cougha and SOB. Ty Gottlieb MD [address] [place] [address], [phone], [facility] 02/26/2025 21:39:37 02/22/2025 text/html Upper Respirator y SymptomsReported by PatientUpper Respiratory SymptomsFor quality, patient reportsproductive cough,congested, andnasal discharge. For context, patient reportscopdbut reportsno foreign travel. For associated symptoms, patient reportsshortness of breath,fatigue, andmalaise. For location, patient reportsheadandchest. For severity, patient reportsmoderate. For duration, patient reportssymptoms lasting less than 2 weeks. For onset/timing, patient reportssudden. For alleviating factors, patient reportsanalgesicsandan tihistamines. COPDReported by PatientHPI:For severity, patient reportsvery limitingbut reportsslowly worsening,uses nebulizer/inhaler an average of 14 times/week lately, andadmitted to hospital 3 times/year. For onset/timing, patient reportsmultiple times per day. For duration, patient reportshas noted for yearsandattacks are frequent. For context, patient reportsrecurrent bronchopulmonary infections. For alleviating factors, patient reportsrelieved with oxygenandrelieved with bronchodilator(wont wear her cpap). Pt is back from hospital. Her COPd exacerbation worsening to the point her sats were dropping and she was sent to hospital. She responded well to Zosyn.Grew out H flu.she looks great today and states she feels great. Ty Gottlieb MD [address] [place] [address], [phone], [facility] 02/27/2025 09:30:17 03/08/2025 text/html Patient complains of some left upper chest wall pain worse with cough. She was recently hospitilized with bronchitis/COPD exacerbation. She also complains of some swelling and pain in left lower leg. No increased dyspnea at this time. Ty Gottlieb MD [address] [place] [address], [phone], [facility] 03/08/2025 15:00:09 03/15/2025 text/html COPDReported by PatientHPI:For onset/timing, patient reportsmultiple times per day. For duration, patient reportschronicandconst ant. For severity, patient reportsmoderate. For alleviating factors, patient reportsrelieved with restandrelieved with oxygen. increase in her edema and 10 lb wt gain since she has been back from the hospital 3 weeks ago.More SOB and wheezing, pulmonary congestion Ty Gottlieb MD [address] [place] [address], [phone], [facility] 03/17/2025 15:18:41 OBGyn Episode No OBEpisode recorded.
--- OUTSIDE RECORDS SUMMARY | 2025-05-08 07:01 | XMS_ITS | Patient Health Record ---
Author Organization [facility] Address [address] [place] [address] Support Name Relationship Address Phone Lauren Jose Guarantor Unknown Unavailable Reason For Referral No Information Plan Of Treatment No Information
--- NOTE | 2025-05-08 07:02 | W.ED.ABDPA2 ---
HPI - Abdominal Pain General: Chief Complaint: Abdominal Pain Stated Complaint: N/V/D Time Seen by Provider: 05/08/25 06:56 History of Present Illness: 79-year-old female [facility] with a complaint of bright red blood per rectum. She had a bowel movement with bloody stool yesterday and then another 1 this morning. She is on Eliquis for atrial fibrillation she has a mild abdominal discomfort as well. She denies any chest pain or shortness of breath. Patient is chronically on 2 L at baseline for COPD and CHF. No vomiting. Per the intermediate her last dose of Eliquis was at 8:00 last night Associated Symptoms: Denies chills, dysuria and fever(s) Related Data Home Medications ?Medication ?Instructions ?Recorded ?Confirmed atorvastatin 20 mg tablet (Lipitor) 20 mg PO BEDTIME 09/30/19 02/12/25 acetaminophen 325 mg tablet 325 mg PO QID Pain 08/22/20 05/08/25 (Tylenol) buspirone 10 mg tablet 10 mg PO BID 12/13/20 02/12/25 famotidine 20 mg tablet 20 mg PO BID 06/26/23 02/12/25 albuterol sulfate 90 mcg/actuation 2 puff inhalation BID PRN 08/21/23 02/12/25 aerosol inhaler Shortness Of Breath bisacodyl 10 mg rectal suppository 10 mg [place] DAILY PRN Constipation 10/08/23 02/12/25 camphor-menthol 0.2 %-3.5 % 1 applic topical TID PRN Pain 10/08/23 02/12/25 topical gel insulin glargine-yfgn 100 unit/mL 20 unit SUBCUT BEDTIME 10/08/23 02/12/25 (3 mL) subcutaneous pen isosorbide mononitrate 30 mg 30 mg PO DAILY 10/08/23 02/12/25 tablet,extended release 24 hr magnesium hydroxide 400 mg/5 mL 30 ml PO DAILY PRN Constipation 10/08/23 02/12/25 oral suspension (Milk of Magnesia) magnesium oxide 200 mg PO BID 10/08/23 02/12/25 sodium phosphates 19 gram-7 118 ml [place] DAILY PRN Constipation 10/08/23 02/12/25 gram/118 mL enema (Fleet Enema) dicyclomine 20 mg tablet 20 mg PO BID PRN stomach discomfort 10/27/23 02/12/25 guaifenesin 100 mg/5 mL oral liquid 200 mg PO Q4H PRN Cough 10/23/24 02/12/25 loratadine 10 mg tablet 10 mg PO DAILY 10/23/24 02/12/25 ondansetron 4 mg disintegrating 4 mg PO Q4H PRN Nausea 10/23/24 02/12/25 tablet duloxetine 60 mg capsule,delayed 60 mg PO DAILY 12/21/24 02/12/25 release (Cymbalta) tizanidine 2 mg capsule 2 mg PO Q8H PRN Muscle Spasm 12/21/24 02/12/25 albuterol sulfate 2.5 mg/3 mL 2.5 mg inhalation QID PRN Wheezing 02/12/25 02/12/25 (0.083 %) solution for nebulization arformoterol 15 mcg/2 mL solution 15 mcg inhalation BID 02/12/25 02/12/25 for nebulization budesonide 1 mg/2 mL suspension 1 mg inhalation BID 02/12/25 02/12/25 for nebulization dulaglutide 1.5 mg/0.5 mL 1.5 mg SUBCUT Q7D 02/12/25 02/12/25 subcutaneous pen injector (Trulicity) revefenacin 175 mcg/3 mL solution 175 mcg inhalation DAILY 02/12/25 02/12/25 for nebulization (Oly) tramadol 50 mg tablet 50 mg PO Q4H PRN Pain 02/12/25 02/12/25 zinc oxide 1 applic topical PRN may keep at 02/12/25 02/12/25 bedside Previous Rx's ?Medication ?Instructions ?Recorded furosemide 40 mg tablet 40 mg PO DAILY 30 days #30 tabs 07/04/23 amlodipine 10 mg tablet 10 mg PO DAILY #60 tabs 10/10/23 amoxicillin 875 mg-potassium 1 tab PO BID #14 tabs 02/16/25 clavulanate 125 mg tablet apixaban 5 mg tablet (Eliquis) 5 mg PO BID@0900,2100 #60 tabs 02/16/25 carvedilol 6.25 mg tablet 12.5 mg (2 x 6.25 mg) PO BID #60 02/16/25 tabs hydralazine 50 mg tablet 50 mg PO TID #60 tabs 02/16/25 levothyroxine 50 mcg tablet 25 mcg (1/2 x 50 mcg) PO QAM #30 02/16/25 tabs lisinopril 20 mg tablet 10 mg (1/2 x 20 mg) PO DAILY #30 02/16/25 tabs pantoprazole 40 mg tablet,delayed 40 mg PO DAILY #30 tabs 02/16/25 release (Protonix) prednisone 20 mg tablet See Rx Instructions .Route 02/16/25 .COMPLEX x5days #10 tabs Allergies Allergy/AdvReac Type Severity Reaction Status Date / Time No Known Allergies Allergy Verified 12/21/24 08:12 Review of Systems Const: Denies: fever(s) or chills Card: Denies: chest pain Resp: Denies: dyspnea GI: Denies: abdominal pain : Denies: dysuria, urinary frequency or urinary urgency Musc: Denies: neck pain or back pain Skin/Breast: Denies: rash PFSH ED PFSH: Medical History Heart failure with improved ejection fraction (HFimpEF) Bradycardia Hyperkalemia Anemia Acute diverticulitis Heart block AV third degree Obesity hypoventilation syndrome Hyperkalemia Morbid obesity Acute respiratory failure with hypoxia and hypercapnia Shortness of breath Acute kidney injury Chronic CHF (congestive heart failure) Hypokalemia Hypomagnesemia Torsades de pointes Diarrhea Takotsubo cardiomyopathy Gastritis Blood in stool Acute HFrEF (heart failure with reduced ejection fraction) HFrEF (heart failure with reduced ejection fraction) Stress-induced cardiomyopathy Diabetes Hypertension Non-ST elevation [place] (NSTEMI) History of cerebrovascular accident COPD (chronic obstructive pulmonary disease) Hypertension Depression with anxiety History of GI bleed GERD (gastroesophageal reflux disease) Diabetes CVA (cerebral vascular accident) COPD (chronic obstructive pulmonary disease) Carpal tunnel syndrome on both sides Opioid contract exists Encounter for long-term use of opiate analgesic Chronic radicular low back pain Smokeless tobacco use Low back pain Surgical History History of esophagogastroduodenoscopy (EGD) (~11/2020) History of colonoscopy (~11/2020) H/O knee surgery History of knee replacement History of lumbar surgery Also history of spinal cord stimulator, currently not functioning History of shoulder surgery Family History Other CAD (coronary artery disease) Hypertension Stroke Denies family history of Anesthesia complication Bleeding disorder Social History Smoking and tobacco/nicotine status: former use of tobacco/nicotine Quit status (tobacco/nicotine): has quit using Year quit tobacco: 2012 Former quit date comment: 2ppd X 48 years Alcohol intake: never Substance/Drug Use: never Housing: Care Home Physical Exam Const: GENERAL APPEARANCE: cooperative ORIENTATION/CONSCIOUSNESS: Yes awake, Yes oriented to person, Yes oriented to place and Yes oriented to time HENMT: COMMON NORMALS: normocephalic, atraumatic and hearing grossly normal bilaterally HEAD & SCALP: normocephalic and atraumatic Resp: COMMON NORMALS: normal respiratory effort, No retractions, No use of accessory muscles and clear to auscultation bilaterally AUSCULTATION: clear to auscultation bilaterally Cardio: COMMON NORMALS: regular rate, regular rhythm and No murmurs present (Cardio) RATE: regular rate RHYTHM: regular rhythm GI: COMMON NORMALS: No hepatosplenomegaly present AUSCULTATION: Yes normoactive bowel sounds PALPATION: Yes Tenderness to palpation present (GI) (Generalized), No Guarding due to palpation present (GI) and Yes No hepatosplenomegaly present Extremity: COMMON NORMALS: normal to inspection, capillary refill normal, no clubbing, cyanosis or edema, no calf tenderness and no pedal edema Neuro: SENSORIUM/ORIENTATION: Yes oriented to person, Yes oriented to place and Yes oriented to time Skin: COMMON NORMALS: no rashes or lesions noted GENERAL SKIN EXAM: no rashes or lesions noted Course Vital Signs: Vital signs: Vital Signs Temperature 98.5 F 05/08/25 09:37 Pulse Rate 100 05/08/25 09:37 Respiratory Rate 17 05/08/25 09:37 Blood Pressure 133/77 05/08/25 09:37 Pulse Oximetry 95 05/08/25 09:37 Oxygen Delivery Me thod Nasal Cannula 05/08/25 09:28 Oxygen Flow Rate 3 05/08/25 09:28 MDM - Abdominal Pain Medical Decision Making Acute diverticulitis with diverticular bleed patient on chronic anticoagulation. There is no abscess or perforation. Rectal exam done at the bedside was sharply Hemoccult positive had bright red blood mixed with the stool at the time of exam. Consult surgery they recommend observation and they will consult on the patient nonetheless discussed with hospitalist will place in the ICU. Lactic slightly elevated blood pressures been stable. Her last Eliquis was last evening will hold the Eliquis is started on Zosyn cultures done. Medical Records I reviewed the patient's medical records. Lab Data I reviewed the patient's lab results. 05/08/25 06:47 05/08/25 06:47 Labs/Radiology: Radiology Impressions Abdomen/Pelvis CT 05/08/25 07:22 IMPRESSION: 1. Thickening with enhancement and surrounding induration about the LEFT colon extending to the LEFT lower quadrant. A few associated diverticuli. Findings are compatible with acute diverticulitis or colitis. No drainable fluid collection or abscess. 2. Fatty liver. 3. Prior cholecystectomy. 4. Small esophageal hiatal hernia. 5. Normal appendix. Laboratory Results WBC 16.33 10^3/uL (3.29-11.43) H 05/08/25 06:47 RBC 3.30 10^6/uL (3.85-5.65) L 05/08/25 06:47 Hgb 6.80 g/dL (11.27-16.99) L 05/08/25 06:47 Hct 25.1 % (36-47) L 05/08/25 06:47 MCV 76.1 fl (85-98) L 05/08/25 06:47 MCH 20.6 pg (27-33) L 05/08/25 06:47 MCHC 27.1 g/dL (30-55) L 05/08/25 06:47 RDW 18.8 % (12.1-15.1) H 05/08/25 06:47 Plt Count 497 10^3/cmm (157-399) H 05/08/25 06:47 MPV 9.0 fL (7.4-10.4) 05/08/25 06:47 Neut % (Auto) 87.4 % 05/08/25 06:47 Lymph % (Auto) 6.7 % 05/08/25 06:47 Mcclain % (Auto) 4.6 % 05/08/25 06:47 Eos % (Auto) 0.5 % 05/08/25 06:47 Baso % (Auto) 0.2 % 05/08/25 06:47 Neut # (Auto) 14.27 10^3/uL (1.8-7.7) H 05/08/25 06:47 Lymph # (Auto) 1.1 10^3/uL (0.8-4.8) 05/08/25 06:47 Mcclain # (Auto) 0.8 10^3/uL (0.2-0.9) 05/08/25 06:47 Eos # (Auto) 0.1 10^3/uL (0.0-0.8) 05/08/25 06:47 Baso # (Auto) 0.0 10^3/uL (0.0-0.1) 05/08/25 06:47 Nucleated RBC % (auto) 0.2 % 05/08/25 06:47 Nucleated RBCs # 0.0 /100WBC 05/08/25 06:47 Sodium 139 mmol/L (136-145) 05/08/25 06:47 Potassium 4.3 mmol/L (3.5-5.1) 05/08/25 06:47 Chloride 95 mmol/L (98-107) L 05/08/25 06:47 Carbon Dioxide 30 mmol/L (22-29) H 05/08/25 06:47 Anion Gap 18.3 (5-19) 05/08/25 06:47 BUN 25 mg/dL (8-23) H 05/08/25 06:47 Creatinine 1.0 mg/dL (0.5-0.9) H 05/08/25 06:47 GFR Calculation Not Reportable 05/08/25 06:47 Glucose 219 mg/dL (65-115) H 05/08/25 06:47 Calculated Osmolality 299 mOsm/kg (285-295) H 05/08/25 06:47 Lactic Acid 2.6 mmol/L (0.5-2.2) H 05/08/25 08:01 Calcium 9.7 mg/dL (8.5-10.5) 05/08/25 06:47 Total Bilirubin 0.6 mg/dL (0.15-1.2) 05/08/25 06:47 AST 8 U/L (0-32) 05/08/25 06:47 ALT 8 U/L (0-33) 05/08/25 06:47 Alkaline Phosphatase 107 U/L (35-105) H 05/08/25 06:47 Total Protein 7.3 g/dL (6.6-8.7) 05/08/25 06:47 Albumin 4.1 g/dL (3.5-5.2) 05/08/25 06:47 Globulin 3.2 g/dL (1.3-4.6) 05/08/25 06:47 Lipase 19 U/L (13-60) 05/08/25 06:47 Urine Color Yellow (Yellow) 05/08/25 08:16 Urine Appearance Clear (CLEAR) 05/08/25 08:16 Urine pH 5 (5-7) 05/08/25 08:16 Ur Specific [place] 1.020 (1.005-1.030) 05/08/25 08:16 Urine Protein Trace (Negative) 05/08/25 08:16 Urine Glucose (UA) Norm (Normal) 05/08/25 08:16 Urine Ketones Negative (Negative) 05/08/25 08:16 Urine Blood 2+ (Negative) H 05/08/25 08:16 Urine Nitrate Negative (Negative) 05/08/25 08:16 Urine Bilirubin Neg (Negative) 05/08/25 08:16 Urine Urobilinogen Norm mg/dL (Negative) 05/08/25 08:16 Ur Leukocyte Esterase Negative (Negative) 05/08/25 08:16 Urine RBC 0-4 /hpf (0-2) H 05/08/25 08:16 Urine WBC 0-4 /hpf (0-5) H 05/08/25 08:16 Ur Squamous Epith Cells 0-4 /hpf (0-5) H 05/08/25 08:16 Amorphous Sediment Not Reportable 05/08/25 08:16 Urine Bacteria Trace /hpf (NONE) 05/08/25 08:16 Hyaline Casts Rare /lpf 05/08/25 08:16 Blood Type A Negative 05/08/25 07:33 Rho(D) Type Rh negative 05/08/25 07:33 Antibody Screen Negative 05/08/25 07:33 Crossmatch See Detail 05/08/25 07:33 All radiology interpretation(s) finalized by discharge Discharge Plan Discharge Patient Disposition: Admitted As Inpatient Clinical Impression: Diverticulitis, Acute lower GI bleeding, Chronic anticoagulation, Atrial fibrillation Condition: Stable Coding Level of Care Code ED [employer] for [employer]
[2025-05-08 07:13] LABS: Hematocrit 25.1 % (36-47); Hemoglobin 6.80 g/dL (11.27-16.99); Mean Corpuscular HGB Conc 27.1 g/dL (30-55); Mean Corpuscular Hemoglobin 20.6 pg (27-33); Mean Corpuscular Volume 76.1 fl (85-98); Nucleated Red Blood Cells % 0.2 %; Platelet Count 497 10^3/cmm (157-399); Red Blood Count 3.30 10^6/uL (3.85-5.65); White Blood Count 16.33 10^3/uL (3.29-11.43)
--- NOTE | 2025-05-08 07:22 | CT_ITS ---
WS: [id number] CT ABDOMEN PELVIS TECHNIQUE: Contrast-enhanced CT of the abdomen and pelvis with coronal and sagittal reformatted images. CLINICAL INFORMATION: abd pain COMPARISON: CT 02/15/2025 DLP: 838.[address] scans at [facility] use at least one of these dose optimization techniques: automated exposure control; mA and/or kV adjustment per patient size (includes targeted exams where dose is matched to clinical indication); or iterative reconstruction. FINDINGS: Submucosal enhancement with thickening and inflammatory stranding about the LEFT colon extending into the LEFT lower quadrant. A few associated diverticuli. Findings compatible with acute diverticulitis or colitis. No drainable abscess or fluid collection. Sigmoid diverticulosis. Fatty liver. Cardiomegaly. Small esophageal hiatal hernia. Portal vein and splenic vein are patent. Prior cholecystectomy. Lung bases are well aerated. Normal appendix. Normal pancreas. Aortic calcification. Normal caliber abdominal aorta. Fat-containing umbilical hernia. Mild thickening LEFT adrenal gland. No hydronephrosis in either kidney. Small LEFT renal cyst. No hydronephrosis. Partially visualized spinal stimulator. Lumbar ankylosis.[id number] CT/CT abdomen pelvis w con* [id number] IMPRESSION: 1. Thickening with enhancement and surrounding induration about the LEFT colon extending to the LEFT lower quadrant. A few associated diverticuli. Findings a re compatible with acute diverticulitis or colitis. No drainable fluid collecti on or abscess. 2. Fatty liver. 3. Prior cholecystectomy. 4. Small esophageal hiatal hernia. 5. Normal appendix.
[2025-05-08 07:44] LABS: Alanine Aminotransferase 8 U/L (0-33); Albumin Level 4.1 g/dL (3.5-5.2); Alkaline Phosphatase 107 U/L (35-105); Anion Gap 18.3 (5-19); Aspartate Amino Transferase 8 U/L (0-32); Blood Urea Nitrogen 25 mg/dL (8-23); Calcium 9.7 mg/dL (8.5-10.5); Carbon Dioxide 30 mmol/L (22-29); Chloride 95 mmol/L (98-107); Creatinine Clr Calc Pharmacy 57.7694; Globulin 3.2 g/dL (1.3-4.6); Glucose 219 mg/dL (65-115); Lipase 19 U/L (13-60); Osmolality Calculated 299 mOsm/kg (285-295); Potassium 4.3 mmol/L (3.5-5.1); Sodium 139 mmol/L (136-145); Total Protein 7.3 g/dL (6.6-8.7)
[2025-05-08 08:43] LABS: Lactic Sepsis W/Reflex 2.6 mmol/L (0.5-2.2)
[2025-05-08] MEDS: piperacillin-tazobactam 3.375 GM in sodium chloride 0.9% (plus) 50 ML IV ×3 (08:52→23:03)
[2025-05-08 09:35] LABS: Add Urine Microscopic? YES; Glucose Urine UA Norm (Normal); Nitrate Urine Negative (Negative); Specific Gravity, Urine 1.020 (1.005-1.030); UA Manual Slide Review YES; UA Slide Review UA Slide Review Perf
[2025-05-08] MEDS: sodium chlor 0.9% + KCl 20 mEq 20 MEQ/1,000 ML BAG 125 MEQ IV (09:41)
--- NOTE | 2025-05-08 09:45 | PM.CONSULT ---
Providers/Reason For Consult Consulting Physician/Specialty*: Dr. Jo general surgery Reason for Consult*: Diverticulitis Primary Care Provider: Nazia Jha History of Present Illness History of Present Illness Lauren Jose is a 79 year old female whom surgery was consulted for diverticulitis. Presents with anemia and hematochezia. Tender left lower quadrant. Hemodynamically acceptable. Medications/Allergies Home Medications ?Medication ?Instructions ?Recorded ?Confirmed ?Last Taken ?Type atorvastatin 20 mg tablet (Lipitor) 20 mg PO BEDTIME 09/30/19 05/08/25 05/07/25 20:05 History acetaminophen 325 mg tablet 325 mg PO QID Pain 08/22/20 05/08/25 05/07/25 20:05 History (Tylenol) buspirone 10 mg tablet 10 mg PO BID 12/13/20 05/08/25 05/07/25 16:20 History furosemide 40 mg tablet 40 mg PO DAILY 30 days #30 tabs 07/04/23 05/08/25 05/07/25 13:50 Rx albuterol sulfate 90 mcg/actuation 2 puff inhalation BID PRN 08/21/23 05/08/25 02/12/25 History aerosol inhaler Shortness Of Breath bisacodyl 10 mg rectal suppository 10 mg [place] DAILY PRN Constipation 10/08/23 05/08/25 Unknown History isosorbide mononitrate 30 mg 30 mg PO DAILY 10/08/23 05/08/25 05/07/25 07:40 History tablet,extended release 24 hr magnesium hydroxide 400 mg/5 mL 30 ml PO DAILY PRN Constipation 10/08/23 05/08/25 08/21/24 History oral suspension (Milk of Magnesia) sodium phosphates 19 gram-7 118 ml [place] DAILY PRN Constipation 10/08/23 05/08/25 Unknown History gram/118 mL enema (Fleet Enema) amlodipine 10 mg tablet 10 mg PO DAILY #60 tabs 10/10/23 05/08/25 05/07/25 07:40 Rx dicyclomine 20 mg tablet 20 mg PO BID PRN stomach discomfort 10/27/23 05/08/25 05/07/25 10:55 History guaifenesin 100 mg/5 mL oral liquid 200 mg PO Q4H PRN Cough 10/23/24 05/08/25 05/04/25 16:45 History loratadine 10 mg tablet 10 mg PO DAILY 10/23/24 05/08/25 05/07/25 07:40 History ondansetron 4 mg disintegrating 4 mg PO Q4H PRN Nausea 10/23/24 05/08/25 05/07/25 13:15 History tablet tizanidine 2 mg capsule 2 mg PO Q8H PRN Muscle Spasm 12/21/24 05/08/25 05/07/25 10:55 History albuterol sulfate 2.5 mg/3 mL 2.5 mg inhalation BID PRN Wheezing 02/12/25 05/08/25 05/07/25 16:20 History (0.083 %) solution for nebulization arformoterol 15 mcg/2 mL solution 15 mcg inhalation BID 02/12/25 05/08/25 05/07/25 16:20 History for nebulization budesonide 1 mg/2 mL suspension 1 mg inhalation BID 02/12/25 05/08/25 05/07/25 16:20 History for nebulization dulaglutide 1.5 mg/0.5 mL 1.5 mg SUBCUT Q7D 02/12/25 05/08/25 05/04/25 08:30 History subcutaneous pen injector (Trulicity) tramadol 50 mg tablet 50 mg PO Q4H PRN Pain 02/12/25 05/08/25 05/07/25 07:45 History zinc oxide 1 applic topical PRN may keep at 02/12/25 05/08/25 Unknown History bedside apixaban 5 mg tablet (Eliquis) 5 mg PO BID@0900,2100 #60 tabs 02/16/25 05/08/25 05/07/25 20:05 Rx hydralazine 50 mg tablet 50 mg PO TID #60 tabs 02/16/25 05/08/25 05/07/25 20:05 Rx levothyroxine 50 mcg tablet 25 mcg (1/2 x 50 mcg) PO QAM #30 02/16/25 05/08/25 05/07/25 05:35 Rx tabs lisinopril 20 mg tablet 10 mg (1/2 x 20 mg) PO DAILY #30 02/16/25 05/08/25 05/07/25 07:40 Rx tabs pantoprazole 40 mg tablet,delayed 40 mg PO DAILY #30 tabs 02/16/25 05/08/25 05/07/25 07:40 Rx release (Protonix) carvedilol 6.25 mg tablet 6.5 mg PO BID 05/08/25 05/08/25 05/07/25 16:20 History duloxetine 60 mg capsule,delayed 60 mg PO DAILY 05/08/25 05/08/25 05/07/25 07:40 History release insulin glargine 100 unit/mL 20 unit SUBCUT BEDTIME 05/08/25 05/08/25 05/07/25 20:30 History subcutaneous solution (Lantus U-100 Insulin) magnesium oxide 400 mg (241.3 mg 200 mg PO BID 05/08/25 05/08/25 05/07/25 16:20 History magnesium) tablet (MagOx) menthol 4 % topical gel (Biofreeze 1 applic topical TID PRN Pain 05/08/25 05/08/25 Unknown History (menthol)) tiotropium bromide 2.5 1 inh inhalation DAILY 05/08/25 05/08/25 05/07/25 07:40 History mcg/actuation mist for inhalation (Spiriva Respimat) Allergies Allergy/AdvReac Type Severity Reaction Status Date / Time No Known Allergies Allergy Verified 12/21/24 08:12 Current Medications Generic Name Dose Route Start Last Admin Trade Name Freq PRN Reason Stop Dose Admin Potassium Chloride/Sodium Chloride 20 meq in 1,000 mls @ 125 mls/hr 05/08/25 09:15 05/08/25 09:41 Sodium Chlor 0.9% + Kcl 20 Meq IV 125 mls/hr .Q8H MAYCO Administration PFSH Acute PFSH: Medical History (Updated 05/08/25 @ 12:04 by Gentry Syed MD) Heart failure with improved ejection fraction (HFimpEF) Bradycardia Hyperkalemia Anemia Acute diverticulitis Heart block AV third degree Obesity hypoventilation syndrome Hyperkalemia Morbid obesity Acute respiratory failure with hypoxia and hypercapnia Shortness of breath Acute kidney injury Chronic CHF (congestive heart failure) Hypokalemia Hypomagnesemia Torsades de pointes Diarrhea Takotsubo cardiomyopathy Gastritis Blood in stool Acute HFrEF (heart failure with reduced ejection fraction) HFrEF (heart failure with reduced ejection fraction) Stress-induced cardiomyopathy Diabetes Hypertension Non-ST elevation [place] (NSTEMI) History of cerebrovascular accident COPD (chronic obstructive pulmonary disease) Hypertension Depression with anxiety History of GI bleed GERD (gastroesophageal reflux disease) Diabetes CVA (cerebral vascular accident) COPD (chronic obstructive pulmonary disease) Carpal tunnel syndrome on both sides Opioid contract exists Encounter for long-term use of opiate analgesic Chronic radicular low back pain Smokeless tobacco use Low back pain Surgical History History of esophagogastroduodenoscopy (EGD) (~11/2020) History of colonoscopy (~11/2020) H/O knee surgery History of knee replacement History of lumbar surgery Also history of spinal cord stimulator, currently not functioning History of shoulder surgery Family History (Updated 05/10/25 @ 07:54 by Cj Jo MD) Other CAD (coronary artery disease) Diverticulitis Hypertension Stroke Denies family history of Anesthesia complication Bleeding disorder Social History Smoking and tobacco/nicotine status: former use of tobacco/nicotine Quit status (tobacco/nicotine): has quit using Year quit tobacco: 2012 Former quit date comment: 2ppd X 48 years Alcohol intake: never Substance/Drug Use: never Housing: Half-Way Vitals/I&O/Wt Last Vital Signs Temp 98.5 F 05/08/25 09:37 Pulse 100 05/08/25 09:37 Resp 17 05/08/25 09:37 BP 133/77 05/08/25 09:37 Pulse Ox 95 05/08/25 09:37 O2 Del Method Nasal Cannula 05/08/25 09:28 O2 Flow Rate 3 05/08/25 09:28 05/07/25 05/08/25 05/08/25 22:59 06:59 14:59 Intake Total 50 / 50 Balance 50 / 50 Weight last 48 hrs Weight 232 lb Physical Exam Narrative: Chest: Unlabored breathing room air. No lymphadenopathy. Heart: Regular rate and rhythm. Abdomen: Soft, tender left lower quadrant. Mildly distended. nonn peritonitic. Data 05/10/25 03:40 05/10/25 03:40 Micro: Microbiology 05/08/25 08:01 Blood Culture - Preliminary Blood SPECIMEN COLLECTED A&P Assessment and plan 1. Diverticulitis: Plan: 79-year-old female admitted with diverticulitis. Recommend medical management with antibiotics and bowel rest. Advance diet as tolerated. Recommend colonoscopy in 6 weeks. PDMP PDMP Reviewed: Not Reviewed Coding Level of Care Code 26393 Diagnoses Diverticulitis K57.92
[2025-05-08 10:01] LABS: Reflex Lactate Order REFLEX LACTIC ORDERD
--- NOTE | 2025-05-08 10:53 | PM.HP ---
Providers/Chief Complaint Admitting Physician: Gentry Syed Primary Care Provider: Nazia Jha Chief Complaint: N/V/D History of Present Illness Lauren Jose is a 79 year old woman from [facility]– [place] with a history of atrial fibrillation on apixaban (Eliquis), congestive heart failure, Takotsubo cardiomyopathy, diabetes, hypertension, chronic obstructive pulmonary disease (COPD), prior cerebrovascular accidents (CVAs), gastroesophageal reflux disease (GERD), and anemia presented for bright red blood per rectum beginning yesterday afternoon (not associated with bowel movements) and recurring this morning. Last dose of Eliquis was yesterday evening. Reports chronic cough (?all the time?), mild vomiting this morning before transfer without blood or coffee-ground material. Denies black stools. Notes lower abdominal soreness; some upper abdominal soreness when examined. Colonoscopy approximately 3?4 years ago. [facility] the [facility] 3 years. States daughter is health care decision maker. Expressed preference for no resuscitation (?let me go?). Review of Systems Const: Denies: fever(s), chills, body aches or malaise ENMT: Denies: throat pain Card: Denies: chest pain, edema, pre-syncope or dyspnea on exertion Resp: Reports: non-productive cough (Chronic); Denies: dyspnea, productive cough, change in phlegm color or hemoptysis GI: Reports: hematochezia; Denies: abdominal pain, nausea, vomiting, diarrhea, constipation or melena : Denies: flank pain, urinary frequency or hematuria Musc: Denies: back pain, joint swelling or joint redness Skin/Breast: Denies: rash or new lesions Neuro: Denies: headache(s) or confusion Medications/Allergies Home Medications ?Medication ?Instructions ?Recorded ?Confirmed ?Last Taken ?Type atorvastatin 20 mg tablet (Lipitor) 20 mg PO BEDTIME 09/30/19 05/08/25 05/07/25 20:05 History acetaminophen 325 mg tablet 325 mg PO QID Pain 08/22/20 05/08/25 05/07/25 20:05 History (Tylenol) buspirone 10 mg tablet 10 mg PO BID 12/13/20 05/08/25 05/07/25 16:20 History furosemide 40 mg tablet 40 mg PO DAILY 30 days #30 tabs 07/04/23 05/08/25 05/07/25 13:50 Rx albuterol sulfate 90 mcg/actuation 2 puff inhalation BID PRN 08/21/23 05/08/25 02/12/25 History aerosol inhaler Shortness Of Breath bisacodyl 10 mg rectal suppository 10 mg VA DAILY PRN Constipation 10/08/23 05/08/25 Unknown History isosorbide mononitrate 30 mg 30 mg PO DAILY 10/08/23 05/08/25 05/07/25 07:40 History tablet,extended release 24 hr magnesium hydroxide 400 mg/5 mL 30 ml PO DAILY PRN Constipation 10/08/23 05/08/25 08/21/24 History oral suspension (Milk of Magnesia) sodium phosphates 19 gram-7 118 ml VA DAILY PRN Constipation 10/08/23 05/08/25 Unknown History gram/118 mL enema (Fleet Enema) amlodipine 10 mg tablet 10 mg PO DAILY #60 tabs 10/10/23 05/08/25 05/07/25 07:40 Rx dicyclomine 20 mg tablet 20 mg PO BID PRN stomach discomfort 10/27/23 05/08/25 05/07/25 10:55 History guaifenesin 100 mg/5 mL oral liquid 200 mg PO Q4H PRN Cough 10/23/24 05/08/25 05/04/25 16:45 History loratadine 10 mg tablet 10 mg PO DAILY 10/23/24 05/08/25 05/07/25 07:40 History ondansetron 4 mg disintegrating 4 mg PO Q4H PRN Nausea 10/23/24 05/08/25 05/07/25 13:15 History tablet tizanidine 2 mg capsule 2 mg PO Q8H PRN Muscle Spasm 12/21/24 05/08/25 05/07/25 10:55 History albuterol sulfate 2.5 mg/3 mL 2.5 mg inhalation BID PRN Wheezing 02/12/25 05/08/25 05/07/25 16:20 History (0.083 %) solution for nebulization arformoterol 15 mcg/2 mL solution 15 mcg inhalation BID 02/12/25 05/08/25 05/07/25 16:20 History for nebulization budesonide 1 mg/2 mL suspension 1 mg inhalation BID 02/12/25 05/08/25 05/07/25 16:20 History for nebulization dulaglutide 1.5 mg/0.5 mL 1.5 mg SUBCUT Q7D 02/12/25 05/08/25 05/04/25 08:30 History subcutaneous pen injector (Trulicity) tramadol 50 mg tablet 50 mg PO Q4H PRN Pain 02/12/25 05/08/25 05/07/25 07:45 History zinc oxide 1 applic topical PRN may keep at 02/12/25 05/08/25 Unknown History bedside apixaban 5 mg tablet (Eliquis) 5 mg PO BID@0900,2100 #60 tabs 02/16/25 05/08/25 05/07/25 20:05 Rx hydralazine 50 mg tablet 50 mg PO TID #60 tabs 02/16/25 05/08/25 05/07/25 20:05 Rx levothyroxine 50 mcg tablet 25 mcg (1/2 x 50 mcg) PO QAM #30 02/16/25 05/08/25 05/07/25 05:35 Rx tabs lisinopril 20 mg tablet 10 mg (1/2 x 20 mg) PO DAILY #30 02/16/25 05/08/25 05/07/25 07:40 Rx tabs pantoprazole 40 mg tablet,delayed 40 mg PO DAILY #30 tabs 02/16/25 05/08/25 05/07/25 07:40 Rx release (Protonix) carvedilol 6.25 mg tablet 6.5 mg PO BID 05/08/25 05/08/25 05/07/25 16:20 History duloxetine 60 mg capsule,delayed 60 mg PO DAILY 05/08/25 05/08/25 05/07/25 07:40 History release insulin glargine 100 unit/mL 20 unit SUBCUT BEDTIME 05/08/25 05/08/25 05/07/25 20:30 History subcutaneous solution (Lantus U-100 Insulin) magnesium oxide 400 mg (241.3 mg 200 mg PO BID 05/08/25 05/08/25 05/07/25 16:20 History magnesium) tablet (MagOx) menthol 4 % topical gel (Biofreeze 1 applic topical TID PRN Pain 05/08/25 05/08/25 Unknown History (menthol)) tiotropium bromide 2.5 1 inh inhalation DAILY 05/08/25 05/08/25 05/07/25 07:40 History mcg/actuation mist for inhalation (Spiriva Respimat) Allergies Allergy/AdvReac Type Severity Reaction Status Date / Time No Known Allergies Allergy Verified 12/21/24 08:12 PFSH Acute PFSH: Medical History Heart failure with improved ejection fraction (HFimpEF) Bradycardia Hyperkalemia Anemia Acute diverticulitis Heart block AV third degree Obesity hypoventilation syndrome Hyperkalemia Morbid obesity Acute respiratory failure with hypoxia and hypercapnia Shortness of breath Acute kidney injury Chronic CHF (congestive heart failure) Hypokalemia Hypomagnesemia Torsades de pointes Diarrhea Takotsubo cardiomyopathy Gastritis Blood in stool Acute HFrEF (heart failure with reduced ejection fraction) HFrEF (heart failure with reduced ejection fraction) Stress-induced cardiomyopathy Diabetes Hypertension Non-ST elevation DE (NSTEMI) History of cerebrovascular accident COPD (chronic obstructive pulmonary disease) Hypertension Depression with anxiety History of GI bleed GERD (gastroesophageal reflux disease) Diabetes CVA (cerebral vascular accident) COPD (chronic obstructive pulmonary disease) Carpal tunnel syndrome on both sides Opioid contract exists Encounter for long-term use of opiate analgesic Chronic radicular low back pain Smokeless tobacco use Low back pain Surgical History History of esophagogastroduodenoscopy (EGD) (~11/2020) History of colonoscopy (~11/2020) H/O knee surgery History of knee replacement History of lumbar surgery Also history of spinal cord stimulator, currently not functioning History of shoulder surgery Family History Other CAD (coronary artery disease) Hypertension Stroke Denies family history of Anesthesia complication Bleeding disorder Social History Smoking and tobacco/nicotine status: former use of tobacco/nicotine Quit status (tobacco/nicotine): has quit using Year quit tobacco: 2013 Former quit date comment: 2ppd X 48 years Alcohol intake: never Substance/Drug Use: never Housing: [facility] Vitals/I&O/Wt Last Vital Signs Temp 98.4 F 05/08/25 09:52 Pulse 106 H 05/08/25 10:15 Resp 17 05/08/25 09:52 BP 135/97 05/08/25 10:15 Pulse Ox 97 05/08/25 10:15 O2 Del Method Nasal Cannula 05/08/25 09:28 O2 Flow Rate 3 05/08/25 09:28 05/07/25 05/08/25 05/08/25 22:59 06:59 14:59 Intake Total 50 / 50 Balance 50 / 50 Weight last 48 hrs Weight 105.233 kg Physical Exam Narrative: Moderately hard of hearing Const: COMMON NORMALS: patient oriented x3 and alert GENERAL APPEARANCE: cooperative ORIENTATION/CONSCIOUSNESS: Yes awake HENMT: COMMON NORMALS: oropharynx normal Neck/C-Spine: COMMON NORMALS: no JVD Resp: COMMON NORMALS: normal respiratory effort and clear to auscultation bilaterally AUSCULTATION: clear to auscultation bilaterally Cardio: COMMON NORMALS: no JVD, regular rhythm, S1 normal heart sound present, S2 normal heart sound present and No murmurs present (Cardio) RHYTHM: regular rhythm HEART SOUNDS: S1 normal heart sound present and S2 normal heart sound present GI: COMMON NORMALS: Soft to palpation PALPATION: Yes Soft to palpation and Yes Tenderness to palpation present (GI) Extremity: COMMON NORMALS: no joint enlargement and no pedal edema Neuro: COMMON NORMALS: patient oriented x3 and moves all extremities SENSORIUM/ORIENTATION: Yes alert Skin: COMMON NORMALS: no rashes or lesions noted GENERAL SKIN EXAM: no rashes or lesions noted Quick SOFA Score: Respiratory Rate: 16 Blood Pressure: 153/76 Raymond Coma Scale: 15 qSOFA Score: 0 If qSOFA score 2 or greater, continue: Blood Pressure Mean: 101 Bilirubin (mg/dl): 0.6 Platelets (x10?/ml): 497 Creatinine (mg/dl): 1.0 Evaluation: Current stage of sepsis: sepsis Sepsis stage criteria used: [facility] Sep-1 and Sepsis-3 Focused Exam: Vital signs: Temp Pulse Resp BP Pulse Ox O2 Del Method O2 Flow Rate 05/08/25 11:05 103 H 16 153/76 97 10/06/25 11:00 117 H 22 H 154/75 100 05/08/25 10:55 106 H 28 H 99 05/08/25 10:52 98.5 F 108 H 24 H 126/76 99 05/08/25 10:50 103 H 24 H 99 05/08/25 10:48 97 05/08/25 10:25 Nasal Cannula 05/08/25 10:24 111 H 05/08/25 10:15 106 H 135/97 97 05/08/25 09:52 98.4 F 106 H 17 135/97 97 05/08/25 09:37 98.5 F 100 17 133/77 95 05/08/25 09:28 98.4 F 104 H 18 146/93 98 Nasal Cannula 3 05/08/25 09:18 98.4 F 104 H 18 146/93 98 05/08/25 08:25 99 96 Nasal Cannula 2 05/08/25 06:58 98.5 F 91 17 135/79 100 Nasal Cannula 2 Respiratory exam: CTA bilaterally Cardiovascular exam: tachycardia Capillary refill: < 3 Seconds Skin exam: not diaphoretic and no mottling Date exam was performed: 05/08/25 Time exam was performed: 12:13 Sepsis Screen No Definite Risk Today, 09:28 Respiratory Rate, (12 - 18) 16 breaths/min Today, 11:05 Blood Pressure 153/76 mmHg Today, 11:05 [place] Coma Scale Score 15 Today, 10:25 Quick SOFA Score 0 Today, 09:28 SOFA Score: [place] Coma Scale Score 15 Today, 10:25 Blood Pressure Mean 101 mmHg Today, 11:05 Total Bilirubin, (0.15-1.2) 0.6 mg/dL Today, 06:47 Platelet Count, (157-399) 497 10^3/cmm H Today, 06:47 Creatinine, (0.5-0.9) 1.0 mg/dL H Today, 06:47 Data 05/08/25 06:47 05/08/25 06:47 Micro: Microbiology 05/08/25 08:01 Blood Culture - Preliminary Blood SPECIMEN COLLECTED A&P Assessment and plan 1. Acute lower GI bleeding: Active rectal bleeding starting yesterday afternoon and again this morning; on apixaban (Eliquis). Reviewed vitals, CBC, chemistry, UA, CT abdomen pelvis, ED provider note, discussed with ED provider, discussed with general surgery. - Hold apixaban (Eliquis) for now due to active bleeding. Hold duloxetine for now. - Monitor for additional bleeding. - General surgery consulted and following. - Treat diverticulitis 2. Diverticulitis: CT abdomen/pelvis showed left colon thickening with enhancement and surrounding inflammation; findings compatible with acute diverticulitis or colitis; no drainable collection or abscess. - Continue piperacillin-tazobactam (Zosyn). - Collect stool studies, including testing for Clostridioides difficile. - Plan follow-up colonoscopy after recovery from colitis; general surgery to arrange follow-up. 3. Acute blood loss anemia: Hemoglobin decreased to 6.8 (previously 11.8 in January); red blood cell transfusion initiated. - Complete red blood cell (RBC) transfusion (one unit transfusing; another unit being prepared). - Recheck hemoglobin later this afternoon and overnight. 4. Atrial fibrillation with RVR: Atrial fibrillation with heart rates in 120s in ICU; last carvedilol dose last night. - Treat heart rate for atrial fibrillation with rapid ventricular response (AFib RVR). - Resume home dose of carvedilol. Monitor on telemetry. Additional beta-yokasta doses in case heart rate is not controlled. Monitor for risk of hypotension. Hold antihypertensives for now. Plan: Sepsis evaluation : Possible sepsis considered; lactate 2.6; blood cultures collected; IV fluids discussed. With noted tachycardia 100s, leukocytosis 16.33. - Blood cultures collected. - Administer IV fluids Follow-up : Ongoing monitoring and discharge planning considerations. - Sequential compression devices (SCDs) only for deep vein thrombosis (DVT) prophylaxis for now. - Monitor for risk of cytopenia. - Monitor for adverse effects with Zosyn (Summers-Galileo syndrome and Clostridioides difficile). - Document DNR status and daughter as health care decision maker. - Consider Watchman device with primary care/cardiology if unable to resume anticoagulation after recovery. PDMP PDMP Reviewed: Not Reviewed Attestations Medical Necessity Statement*: Admission of over 2 midnights anticipated for assessment management of acute blood loss anemia with GI bleeding, requiring blood transfusion, in a patient on anticoagulation, A-fib with RVR, possible sepsis, diverticulitis. Diagnoses Acute lower GI bleeding K92.2 Diverticulitis K57.92 Acute blood loss anemia D62 Atrial fibrillation with RVR I48.91
[2025-05-08] MEDS: pantoprazole 40 mg SDV IVP ×2 (11:26→23:03)
[2025-05-08 12:41] LABS: Lactic Acid level (Lactate) 2.1 mmol/L (0.5-2.2)
[2025-05-08 14:20] LABS: Hemoglobin 7.70 g/dL (11.27-16.99)
[2025-05-08] MEDS: morphine 4 mg/mL SDV 1 mL 2 MG IVP ×2 (14:54→19:22)
[2025-05-08 18:21] LABS: Hemoglobin 7.60 g/dL (11.27-16.99)
[2025-05-08] MEDS: insulin glargine 100 units/1 mL 10 UNIT SUBCUT (21:34)
[2025-05-08] MEDS: ATORVASTATIN 20 MG TABLET PO (21:34)
[2025-05-08 22:39] LABS: Hemoglobin 7.80 g/dL (11.27-16.99)
[2025-05-09] VITALS (49 sets, daily range): BP systolic 120–167; BP diastolic 58–99; PULSE 71–111; RESP 8–26; TEMP 36.4–37.1; O2SAT 68–99
[2025-05-09] MEDS: morphine 4 mg/mL SDV 1 mL 2 MG IVP ×2 (01:48→16:06)
[2025-05-09 04:20] LABS: Hematocrit 26.7 % (36-47); Hemoglobin 7.50 g/dL (11.27-16.99); Mean Corpuscular HGB Conc 28.1 g/dL (30-55); Mean Corpuscular Hemoglobin 21.7 pg (27-33); Mean Corpuscular Volume 77.2 fl (85-98); Nucleated Red Blood Cells % 0.2 %; Platelet Count 400 10^3/cmm (157-399); Red Blood Count 3.46 10^6/uL (3.85-5.65); White Blood Count 14.21 10^3/uL (3.29-11.43)
[2025-05-09 04:47] LABS: Alanine Aminotransferase 7 U/L (0-33); Albumin Level 3.7 g/dL (3.5-5.2); Alkaline Phosphatase 102 U/L (35-105); Anion Gap 14.0 (5-19); Aspartate Amino Transferase 11 U/L (0-32); Blood Urea Nitrogen 14 mg/dL (8-23); Calcium 9.5 mg/dL (8.5-10.5); Carbon Dioxide 29 mmol/L (22-29); Chloride 104 mmol/L (98-107); Creatinine Clr Calc Pharmacy 64.5140; Globulin 3.0 g/dL (1.3-4.6); Glucose 130 mg/dL (65-115); Osmolality Calculated 298 mOsm/kg (285-295); Potassium 4.0 mmol/L (3.5-5.1); Sodium 143 mmol/L (136-145); Total Protein 6.7 g/dL (6.6-8.7)
[2025-05-09] MEDS: piperacillin-tazobactam 3.375 GM in sodium chloride 0.9% (plus) 50 ML IV ×3 (08:19→23:32)
--- NOTE | 2025-05-09 10:07 | P.PN_ITS ---
Subjective 2 Subjective: She reports she is doing better today. She denies any additional bloody bowel movements. Abdominal tenderness has resolved. No vomiting and she is very hungry and requesting for oral diet. Vitals/I&O/Wt Last Vital Signs Temp 98.7 F 05/09/25 08:00 Pulse 83 05/09/25 08:30 Resp 26 H 05/09/25 08:30 BP 136/62 05/09/25 08:30 Pulse Ox 85 L 05/09/25 08:30 O2 Del Method Nasal Cannula 05/09/25 08:08 O2 Flow Rate 2 05/09/25 08:08 05/08/25 05/09/25 05/09/25 22:59 06:59 14:59 Intake Total 50 / 556.25 50 / 606.25 1000 / 1000 Output Total 750 / 750 Balance 50 / 556.25 -700 / -143.75 1000 / 1000 Weight last 48 hrs Weight 105.3 kg Weight 105.233 kg Weight 105.233 kg Physical Exam 2 Narrative: Moderately hard of hearing Const: COMMON NORMALS: patient oriented x3 and alert GENERAL APPEARANCE: c ooperative; not diaphoretic ORIENTATION/CONSCIOUSNESS: Yes awake HENMT: COMMON NORMALS: oropharynx normal Neck/C-Spine: COMMON NORMALS: no JVD Resp: COMMON NORMALS: normal respiratory effort and clear to auscultation bilaterally AUSCULTATION: clear to auscultation bilaterally Cardio: COMMON NORMALS: no JVD, regular rhythm, S1 normal heart sound present, S2 normal heart sound present and No murmurs present (Cardio) RATE: t achycardic RHYTHM: regular rhythm HEART SOUNDS: S1 normal heart sound present and S2 normal heart sound present GI: COMMON NORMALS: Soft to palpation PALPATION: Yes Soft to palpation and No Tenderness to palpation present (GI) Extremity: COMMON NORMALS: no joint enlargement and no pedal edema Neuro: COMMON NORMALS: patient oriented x3 and moves all extremities S ENSORIUM/ORIENTATION: Yes alert Skin: COMMON NORMALS: no rashes or lesions noted GENERAL SKIN EXAM: no rashes or lesions noted and no mottling Urinary Catheter Management: Dumont: Cath Placed During This Visit: yes Reason for Continuing Indwelling Catheter: Accurate Measurement of Urinary Output in Critically Ill Patients Urinary Catheter Date of Insertion: 05/08/25 Urinary Catheter Time of Insertion: 20:05 Data 05/09/25 04:10 05/09/25 04:10 Micro: Microbiology 05/08/25 08:01 Blood Culture - Preliminary Blood NEGATIVE TO DATE 05/08/25 10:57 Blood Culture - Preliminary Blood SPECIMEN COLLECTED A&P Assessment and plan 1. Acute lower GI bleeding: So far rectal bleeding is resolved. Reviewed CBC, noted leukocytosis, possibly secondary diverticulitis versus reactive. Hemoglobin noted stabilized around 7.5. Abdominal pain has resolved. She is very hungry requesting oral intake, discussed with her trial of clear liquids, requested. Discussed with nursing, case management specialist. On admission active rectal bleeding starting previous afternoon and again this morning; on apixaban (Eliquis). - Hold apixaban (Eliquis) for now due to active bleeding. Hold duloxetine for now. - Monitor for additional bleeding. - General surgery note reviewed - Treat diverticulitis 2. Diverticulitis: Abdominal pain resolved. She is very hungry wants to trial some oral intake. No nausea or vomiting. Trial of clear liquids. Consider advancing if tolerating well. CT abdomen/pelvis showed left colon thickening with enhancement and surrounding inflammation; findings compatible with acute diverticulitis or colitis; no drainable collection or abscess. - Continue piperacillin-tazobactam (Zosyn). - Collect stool studies, including testing for Clostridioides difficile. - Plan follow-up colonoscopy after recovery from colitis; general surgery to arrange follow-up. 3. Acute blood loss anemia: Reviewed blood counts, reassess acute blood loss anemia, repeat blood counts in the morning. If continues to do well, possibly may be able to discharge. Hemoglobin decreased to 6.8 (previously 11.8 in January); red blood cell transfusion initiated. - Complete red blood cell (RBC) transfusion (one unit transfusing; another unit being prepared). - Recheck hemoglobin later this afternoon and overnight. 4. Atrial fibrillation with RVR: Reviewed heart rates, doing better. Continue carvedilol. After admission atrial fibrillation with heart rates in 120s in ICU; last carvedilol dose last night. - Treat heart rate for atrial fibrillation with rapid ventricular response (AFib RVR). - Resume home dose of carvedilol. Monitor on telemetry. Additional beta- yokasta doses in case heart rate is not controlled. Monitor for risk of hypotension. Hold antihypertensives for now. Plan: Sepsis evaluation : Tachycardia resolved. Afebrile. Persistent leukocytosis on review of CBC 14.21. Sepsis if was present resolved. DC IV fluids. - Blood cultures collected. Reviewed, negative to date. - DC IV fluids Follow-up : Ongoing monitoring and discharge planning considerations. - Sequential compression devices (SCDs) only for deep vein thrombosis (DVT) prophylaxis for now. - Monitor for risk of cytopenia. - Monitor for adverse effects with Zosyn (Summers-Galileo syndrome and Clostridioides difficile). - Document DNR status and daughter as health care decision maker. - Consider Watchman device with primary care/cardiology if unable to resume anticoagulation after recovery. PDMP PDMP Reviewed: Not Reviewed Attestations 2 Medical Necessity Statement*: Continue admission for assessment and management of lower GI bleeding, diverticulitis, trial of oral diet, reassessment of acute blood loss anemia. and High MDM includes amount and/or complexity of data reviewed/ordered [ previous or external records, resulted lab(s)/test(s), ordered lab(s)/test(s) and other healthcare professional discussion] as documented Diagnoses Acute lower GI bleeding K92.2 Diverticulitis K57.92 Acute blood loss anemia D62 Atrial fibrillation with RVR I48.91
[2025-05-09] MEDS: pantoprazole 40 mg SDV IVP ×2 (11:03→23:32)
--- NOTE | 2025-05-09 12:49 | P.PN_ITS ---
Subjective 2 Subjective: No acute events overnight No hematochezia Abdomen benign Tolerating clears Vitals/I&O/Wt Last Vital Signs Temp 97.9 F 05/09/25 12:00 Pulse 80 05/09/25 12:00 Resp 20 H 05/09/25 12:00 BP 142/64 05/09/25 12:00 Pulse Ox 93 05/09/25 12:00 O2 Del Method Nasal Cannula 05/09/25 08:08 O2 Flow Rate 2 05/09/25 08:08 05/08/25 05/09/25 05/09/25 22:59 06:59 14:59 Intake Total 50 / 556.25 50 / 606.25 1000 / 1000 Output Total 750 / 750 Balance 50 / 556.25 -700 / -143.75 1000 / 1000 Weight last 48 hrs Weight 232 lb 2.348 oz Weight 232 lb Weight 232 lb Physical Exam 2 Narrative: Chest: Unlabored breathing room air. No lymphadenopathy. Heart: Regular rate and rhythm. Abdomen: Soft, nontender, nondistended. No masses or lymphadenopathy. Urinary Catheter Management: Dumont: Cath Placed During This Visit: yes Reason for Continuing Indwelling Catheter: Accurate Measurement of Urinary Output in Critically Ill Patients Urinary Catheter Date of Insertion: 05/08/25 Urinary Catheter Time of Insertion: 20:05 Data 05/10/25 03:40 05/10/25 03:40 Micro: Microbiology 05/08/25 10:57 Blood Culture - Preliminary Blood NEGATIVE TO DATE 05/08/25 08:01 Blood Culture - Preliminary Blood NEGATIVE TO DATE A&P Assessment and plan 1. Diverticulitis: Plan: 79-year-old female who presented with diverticulitis. Responded to antibiotics. Tolerating clears. Advance diet as tolerated. Colonoscopy in 6 weeks. PDMP PDMP Reviewed: Not Reviewed Attestations 2 Medical Necessity Statement*: N/A Coding Level of Care Code 54810 Diagnoses Diverticulitis K57.92
[2025-05-09] MEDS: insulin glargine 100 units/1 mL 10 UNIT SUBCUT (21:24)
[2025-05-09] MEDS: ATORVASTATIN 20 MG TABLET PO (21:24)
[2025-05-10] VITALS (8 sets, daily range): BP systolic 115–148; BP diastolic 59–96; PULSE 78–107; RESP 20–36; TEMP 36.4–37; O2SAT 92–99
[2025-05-10 03:54] LABS: Hematocrit 28.7 % (36-47); Hemoglobin 7.70 g/dL (11.27-16.99); Mean Corpuscular HGB Conc 26.8 g/dL (30-55); Mean Corpuscular Hemoglobin 20.9 pg (27-33); Mean Corpuscular Volume 78.0 fl (85-98); Nucleated Red Blood Cells % 0 %; Platelet Count 415 10^3/cmm (157-399); Red Blood Count 3.68 10^6/uL (3.85-5.65); White Blood Count 12.94 10^3/uL (3.29-11.43)
[2025-05-10 04:14] LABS: Alanine Aminotransferase 7 U/L (0-33); Albumin Level 3.8 g/dL (3.5-5.2); Alkaline Phosphatase 97 U/L (35-105); Anion Gap 13.9 (5-19); Aspartate Amino Transferase 8 U/L (0-32); Blood Urea Nitrogen 12 mg/dL (8-23); Calcium 9.6 mg/dL (8.5-10.5); Carbon Dioxide 33 mmol/L (22-29); Chloride 100 mmol/L (98-107); Creatinine Clr Calc Pharmacy 64.5389; Globulin 3.1 g/dL (1.3-4.6); Glucose 120 mg/dL (65-115); Osmolality Calculated 297 mOsm/kg (285-295); Potassium 3.9 mmol/L (3.5-5.1); Sodium 143 mmol/L (136-145); Total Protein 6.9 g/dL (6.6-8.7)
[2025-05-10] MEDS: piperacillin-tazobactam 3.375 GM in sodium chloride 0.9% (plus) 50 ML IV (08:32)
--- NOTE | 2025-05-10 08:49 | P.DS_ITS ---
Discharge Providers Date of Admission: 05/08/25 09:49 Date of Discharge: May 10, 2025 Attending Provider at Admission: Gentry Syed Attending Provider at Discharge: Gentry Syed Primary Care Provider: Nazia Jha Diagnoses at Discharge Discharge Diagnosis 1. Diverticulitis: Reason for Visit Reason for Visit: N/V/D Brief History: Lauren Jose is a 79 year old woman from [facility] with a history of atrial fibrillation on apixaban (Eliquis), congestive heart failure, T akotsubo cardiomyopathy, diabetes, hypertension, chronic obstructive pulmonary disease (COPD), prior cerebrovascular accidents (CVAs), gastroesophageal reflux disease (GERD), and anemia presented for bright red blood per rectum beginning yesterday afternoon (not associated with bowel movements) and recurring this morning. Last dose of Eliquis was yesterday evening. Reports chronic cough (?all the time?), mild vomiting this morning before transfer without blood or coffee- ground material. Denies black stools. Notes lower abdominal soreness; some upper abdominal soreness when examined. Colonoscopy approximately 3?4 years ago. Resides in the half-way for the past 3 years. States daughter is health care decision maker. Expressed preference for no resuscitation (?let me go?). Hospital Course Hospital Course She was admitted and blood counts were reassessed she was found to have acute blood loss anemia with hemoglobin stabilizing around 7.5. Transient atrial fibrillation with RVR on presentation and responded to resuming her usual carvedilol dose. Eliquis has been held due to lower GI bleeding. She was treated for diverticulitis with Zosyn while in hospital, with abdominal pain improving although not yet resolving entirely with intermittent cramps, but she is tolerating oral intake and wanting to advance diet. Please reassess blood can, reassess for continued recovery from diverticulitis and consider resumption of Eliquis if there is no recurrence of bleeding. Surgery would like to see her in office for reassessment and for planning of colonoscopy in 6 weeks after recovery from diverticulitis. Physical Exam Narrative: Moderately hard of hearing Const: COMMON NORMALS: patient oriented x3 and alert GENERAL APPEARANCE: cooperative; not diaphoretic ORIENTATION/CONSCIOUSNESS: Yes awake HENMT: COMMON NORMALS: oropharynx normal Neck/C-Spine: COMMON NORMALS: no JVD Resp: COMMON NORMALS: normal respiratory effort and clear to auscultation bilaterally AUSCULTATION: clear to auscultation bilaterally Cardio: COMMON NORMALS: no JVD, regular rhythm, S1 normal heart sound present, S2 normal heart sound present and No murmurs present (Cardio) RATE: tachycardic RHYTHM: regular rhythm HEART SOUNDS: S1 normal heart sound present and S2 normal heart sound present GI: COMMON NORMALS: Soft to palpation PALPATION: Yes Soft to palpation and No Tenderness to palpation present (GI) Extremity: COMMON NORMALS: no joint enlargement and no pedal edema Neuro: COMMON NORMALS: patient oriented x3 and moves all extremities SENSORIUM/ORIENTATION: Yes alert Skin: COMMON NORMALS: no rashes or lesions noted GENERAL SKIN EXAM: no rashes or lesions noted and no mottling Urinary Catheter Management: Dumont: Cath Placed During This Visit: yes Reason for Continuing Indwelling Catheter: Accurate Measurement of Urinary Output in Critically Ill Patients Urinary Catheter Date of Insertion: 05/08/25 Urinary Catheter Time of Insertion: 20:05 Discharge Data Studies Completed and Pending Completed Studies During Hospitalization Category Date Time Status CT abdomen pelvis w con* [id number] Stat Cat Scan 05/08/25 07:22 Completed Pending at discharge Category Date Time Status Blood Culture Stat Lab 05/08/25 10:57 Results C.Diff PCR (Lab) Routine Lab 05/08/25 12:10 Uncollected Complete Blood Count w/Auto AM LABS Lab 05/11/25 04:00 Ordered Comprehensive Metabolic Panel AM LABS Lab 05/11/25 04:00 Ordered Stool Culture - Enteric [Salmonella / Shigella / Campy] Lab 05/08/25 12:11 Ordered Routine Radiology Impressions Abdomen/Pelvis CT 05/08/25 07:22 IMPRESSION: 1. Thickening with enhancement and surrounding induration about the LEFT colon extending to the LEFT lower quadrant. A few associated diverticuli. Findings are compatible with acute diverticulitis or colitis. No drainable fluid collection or abscess. 2. Fatty liver. 3. Prior cholecystectomy. 4. Small esophageal hiatal hernia. 5. Normal appendix. Laboratory Results WBC 12.94 10^3/uL (3.29-11.43) H 05/10/25 03:40 RBC 3.68 10^6/uL (3.85-5.65) L 05/10/25 03:40 Hgb 7.70 g/dL (11.27-16.99) L 05/10/25 03:40 Hct 28.7 % (36-47) L 05/10/25 03:40 MCV 78.0 fl (85-98) L 05/10/25 03:40 MCH 20.9 pg (27-33) L 05/10/25 03:40 MCHC 26.8 g/dL (30-55) L 05/10/25 03:40 RDW 18.5 % (12.1-15.1) H 05/10/25 03:40 Plt Count 415 10^3/cmm (157-399) H 05/10/25 03:40 MPV 9.0 fL (7.4-10.4) 05/10/25 03:40 Neut % (Auto) 79.0 % 05/10/25 03:40 Lymph % (Auto) 10.4 % 05/10/25 03:40 [place] % (Auto) 7.2 % 05/10/25 03:40 Eos % (Auto) 1.9 % 05/10/25 03:40 Baso % (Auto) 0.4 % 05/10/25 03:40 Neut # (Auto) 10.24 10^3/uL (1.8-7.7) H 05/10/25 03:40 Lymph # (Auto) 1.3 10^3/uL (0.8-4.8) 05/10/25 03:40 [place] # (Auto) 0.9 10^3/uL (0.2-0.9) 05/10/25 03:40 Eos # (Auto) 0.2 10^3/uL (0.0-0.8) 05/10/25 03:40 Baso # (Auto) 0.1 10^3/uL (0.0-0.1) 05/10/25 03:40 Nucleated RBC % (auto) 0 % 05/10/25 03:40 Nucleated RBCs # 0.0 /100WBC 05/10/25 03:40 Sodium 143 mmol/L (136-145) 05/10/25 03:40 Potassium 3.9 mmol/L (3.5-5.1) 05/10/25 03:40 Chloride 100 mmol/L (98-107) 05/10/25 03:40 Carbon Dioxide 33 mmol/L (22-29) H 05/10/25 03:40 Anion Gap 13.9 (5-19) 05/10/25 03:40 BUN 12 mg/dL (8-23) 05/10/25 03:40 Creatinine 0.7 mg/dL (0.5-0.9) 05/10/25 03:40 GFR Calculation Not Reportable 05/10/25 03:40 Glucose 120 mg/dL (65-115) H 05/10/25 03:40 POC Glucose 112 mg/dL (70-110) H 05/09/25 21:13 Calculated Osmolality 297 mOsm/kg (285-295) H 05/10/25 03:40 Lactic Acid 2.6 mmol/L (0.5-2.2) H 05/08/25 08:01 Lactic Acid (Sepsis) 2.1 mmol/L (0.5-2.2) 05/08/25 10:57 Calcium 9.6 mg/dL (8.5-10.5) 05/10/25 03:40 Total Bilirubin 0.8 mg/dL (0.15-1.2) 05/10/25 03:40 AST 8 U/L (0-32) 05/10/25 03:40 ALT 7 U/L (0-33) 05/10/25 03:40 Alkaline Phosphatase 97 U/L (35-105) 05/10/25 03:40 Total Protein 6.9 g/dL (6.6-8.7) 05/10/25 03:40 Albumin 3.8 g/dL (3.5-5.2) 05/10/25 03:40 Globulin 3.1 g/dL (1.3-4.6) 05/10/25 03:40 Lipase 19 U/L (13-60) 05/08/25 06:47 Urine Color Yellow (Yellow) 05/08/25 08:16 Urine Appearance Clear (CLEAR) 05/08/25 08:16 Urine pH 5 (5-7) 05/08/25 08:16 Ur Specific [place] 1.020 (1.005-1.030) 05/08/25 08:16 Urine Protein Trace (Negative) 05/08/25 08:16 Urine Glucose (UA) Norm (Normal) 05/08/25 08:16 Urine Ketones Negative (Negative) 05/08/25 08:16 Urine Blood 2+ (Negative) H 05/08/25 08:16 Urine Nitrate Negative (Negative) 05/08/25 08:16 Urine Bilirubin Neg (Negative) 05/08/25 08:16 Urine Urobilinogen Norm mg/dL (Negative) 05/08/25 08:16 Ur Leukocyte Esterase Negative (Negative) 05/08/25 08:16 Urine RBC 0-4 /hpf (0-2) H 05/08/25 08:16 Urine WBC 0-4 /hpf (0-5) H 05/08/25 08:16 Ur Squamous Epith Cells 0-4 /hpf (0-5) H 05/08/25 08:16 Amorphous Sediment Not Reportable 05/08/25 08:16 Urine Bacteria Trace /hpf (NONE) 05/08/25 08:16 Hyaline Casts Rare /lpf 05/08/25 08:16 Blood Type A Negative 05/08/25 07:33 Rho(D) Type Rh negative 05/08/25 07:33 Antibody Screen Negative 05/08/25 07:33 Crossmatch See Detail 05/08/25 07:33 Vitals Last Vital Signs Temp 98.6 F 05/10/25 08:00 Pulse 90 05/10/25 08:00 Resp 27 H 05/10/25 08:00 BP 148/59 05/10/25 08:00 Pulse Ox 99 05/10/25 08:00 O2 Del Method Nasal Cannula 05/10/25 07:47 O2 Flow Rate 2 05/10/25 07:47 Discharge Plan Discharge Patient Disposition: Xfer [facility] Condition: Stable Prescriptions: New metronidazole 500 mg tablet 500 mg PO Q8H 7 Days Qty: 21 0RF ciprofloxacin HCl 500 mg tablet 500 mg PO BID Qty: 14 0RF Continued atorvastatin [Lipitor] 20 mg tablet 20 mg PO BEDTIME albuterol sulfate 90 mcg/actuation HFA aerosol inhaler 2 puff inhalation BID PRN (Reason: Shortness Of Breath) dicyclomine 20 mg tablet 20 mg PO BID PRN (Reason: stomach discomfort) tizanidine 2 mg capsule 2 mg PO Q8H PRN (Reason: Muscle Spasm) acetaminophen [Tylenol] 325 mg Tablet 325 mg PO QID buspirone 10 mg tablet 10 mg PO BID furosemide 40 mg Tablet 40 mg PO DAILY 30 Days Qty: 30 0RF albuterol sulfate 2.5 mg /3 mL (0.083 %) solution for nebulization 2.5 mg inhalation BID PRN (Reason: Wheezing) arformoterol 15 mcg/2 mL solution for nebulization 15 mcg INHALATION BID budesonide 1 mg/2 mL suspension for nebulization 1 mg inhalation BID zinc oxide Ointment 1 applic TOPICAL PRN Trulicity 1.5 mg/0.5 mL pen injector 1.5 mg SUBCUT Q7D Rx Instructions: levothyroxine 50 mcg Tablet 25 mcg PO QAM Qty: 30 0RF hydralazine 50 mg tablet 50 mg PO TID Qty: 60 0RF lisinopril 20 mg tablet 10 mg PO DAILY Qty: 30 0RF pantoprazole [Protonix] 40 mg tablet,delayed release (DR/EC) 40 mg PO DAILY Qty: 30 0RF insulin glargine [Lantus U-100 Insulin] 100 unit/mL Solution 20 unit SUBCUT BEDTIME magnesium oxide [MagOx] 400 mg (241.3 mg magnesium) Tablet 200 mg PO BID Spiriva Respimat 2.5 mcg/actuation mist 1 inh INHALATION DAILY Biofreeze (menthol) 4 % Gel 1 applic TOPICAL TID PRN (Reason: Pain) carvedilol 6.25 mg tablet 6.5 mg PO BID isosorbide mononitrate 30 mg tablet extended release 24 hr 30 mg PO DAILY magnesium hydroxide [Milk of Magnesia] 400 mg/5 mL Suspension 30 ml PO DAILY PRN (Reason: Constipation) bisacodyl 10 mg Suppository 10 mg SD DAILY PRN (Reason: Constipation) Fleet Enema 19-7 gram/118 mL Enema 118 ml SD DAILY PRN (Reason: Constipation) amlodipine 10 mg tablet 10 mg PO DAILY Qty: 60 4RF guaifenesin 100 mg/5 mL Liquid 200 mg PO Q4H PRN (Reason: Cough) ondansetron 4 mg Tablet,Disintegrating 4 mg PO Q4H PRN (Reason: Nausea) loratadine 10 mg Tablet 10 mg PO DAILY Held duloxetine 60 mg capsule,delayed release(DR/EC) 60 mg PO DAILY Hold Instructions: Resume on 05/16/25. Discontinued tramadol 50 mg tablet 50 mg PO Q4H PRN (Reason: Pain) Eliquis 5 mg Tablet 5 mg PO BID@0900,2100 Qty: 60 0RF Discharge Order = DC NOW: Discharge Order (Routine); Ordered 05/10/25 Ordered By: Gentry Syed Referrals: Cj Jo MD [Physician, General Surgery] - 6 Weeks Nazia Jha PA [Primary Care Provider, [employer] [employer]] - 4-7 days Discharge Diet: Advance as tolerated and GI Soft Discharge Activity: Increase activity as tolerated Patient Instructions: Opioid Safety, Patient Portal & [place] Instructions Activity Restrictions/Additional Instructions: Complete to better course for diverticulitis. Follow-up with prime provider for reassessment of recovery as well as for assessment of acute blood loss anemia and consider timing of resuming Eliquis. Follow-up with surgery in office for reassessment and arrangements for colonoscopy in 6 weeks. Discharge Attestations Time Spent in Discharge Care*: greater than 30 min Status at Discharge: Cognitive status at discharge: cognitively intact , Behavioral status at discharge: cooperative , Quality Metrics Clinical Quality Measures [ No reported AMI, CVA or VTE this stay] Coding Level of Care Code 11217 Total time (in minutes) for Discharge: 40 Diagnoses Diverticulitis K57.92
[2025-05-10 10:54] LABS: C.Diff PCR (Lab) NEGATIVE (Negative)
--- NOTE | 2025-05-10 11:41 | PC.NURSE ---
[facility] back to [facility] with pending c-diff lab result. notified, case management notified, and [facility] staff notified of pending result. Case management told this nurse they would call facility with results. All IVs and monitoring equipment removed prior to patient discharge. Scripts sent to [facility] preferred pharmacy, and discharge paperwork sent to facility as well. upon discharge vital signs within normal limits, patient awake, alert, and appropriate. All questions concerning discharge answered prior to patient leaving the hospital
== END 2025-05-10 10:40 | disposition intermediate care facility (04) | DRG 378 ==
LOC: ER 09:46 → ICU 09:50
PROVIDERS: Admitting Provider Internal Medicine; Emergency Provider Family Medicine; PCP Physician Assistant; Visit Provider Internal Medicine
DX: K57.33 Diverticulitis of large intestine without perforation or abscess with bleeding (principal); D62 Acute posthemorrhagic anemia; I50.30 Unspecified diastolic (congestive) heart failure; I48.91 Unspecified atrial fibrillation; Z79.01 Long term (current) use of anticoagulants; Z66 Do not resuscitate; Z87.891 Personal history of nicotine dependence; Z96.659 Presence of unspecified artificial knee joint; E11.9 Type 2 diabetes mellitus without complications; Z79.4 Long term (current) use of insulin; J44.9 Chronic obstructive pulmonary disease, unspecified; K21.9 Gastro-esophageal reflux disease without esophagitis; Z99.81 Dependence on supplemental oxygen; E83.42 Hypomagnesemia; E87.6 Hypokalemia; I11.0 Hypertensive heart disease with heart failure; F32.A Depression, unspecified; F41.9 Anxiety disorder, unspecified; Z86.73 Personal history of transient ischemic attack (TIA), and cerebral infarction without residual deficits; I25.2 Old myocardial infarction; Z79.85 Long-term (current) use of injectable non-insulin antidiabetic drugs
CPT/HCPCS: 36415; 36416; 36430; 51702; 74177; 80053; 81001; 82962; 83605; 83690; 85018; 85025; 86850; 86900; 86920; 87040; 87493; 94640; 96365; 96372; 99285; J1815; J2270; J2470; J2543; J3480; J7030; J7626; J9999; P9058

== ENCOUNTER 2025-05-26 09:47 | Emergency (ER) | payer MEDICARE, MEDICAID, SELFPAY ==
[2025-05-26] VITALS (15 sets, daily range): BP systolic 114–141; BP diastolic 57–81; PULSE 74–102; RESP 16–20; TEMP 36.3–36.9; O2SAT 91–98; BMI 45.3
--- OUTSIDE RECORDS SUMMARY | 2025-05-26 09:51 | XMS_ITS | Data Portability ---
Author Organization [facility] Jennyfer, L.L.CJolie, ZORANAnthony [facility]IST[facility] LIVING Address [address] [facility] [address] [place] [address] Care Team Providers Care Supervisor Frame Assembly Name Role Phone NAZIA JHA Primary Care [...] record ed. Patient TargetsNo targets recorded. Patient InstructionsNo instructions recorded. Reason for Referral None Reported. Results Created Date Observation Date Name Description Value Unit Range Abnormal Flag Note LastModifiedBy Organization Detail LastModifiedTime 02/11/2001/24/2025 , [facility] ardio gram No observ ation record ed. [email or web address] [facility] [address] [place], [address], 02/10/2025 11:58:45 Result Notes None recorded. Problems Name Problem SNOMED Code Status Onset Date Resolution Date Notes Provider Name and Address Organization Details Recorded Time Abdomina l pain 19573951 Completed 201902/06/2020 ABDOMINA L PAIN - Status is Inactive ; Recorded 02/06/20 3:27PM by Nazia Jha PA-C, Annotati on/Adden dum; Promoted ; acuity set as *; NAZIA JHA PA-C [address] [place], [address] , [place] [facility] 16:19:26 Aortic stenosis , non-rheu matic 423339827 Completed 201902/08/2020 AORTIC STENOSIS - Status is Inactive ; Recorded 02/08/20 10:06AM by Nazia Jha PA-C, Annotati on/Adden dum; Promoted ; acuity set as *; Not Available [facility] 3 03:12:50 Anemia 305568164 Completed 201902/08/2020 ANEMIA - Status is Resolved ; Resolved Date: 02/08/20; Recorded 02/08/20 10:01AM by Nazia Jha PA-C, Annotati on/Adden dum; Promoted ; acuity set as *; Not Available [facility] 3 03:12:58 Nausea 197101026 Completed 202005/07/2021 NAUSEA - Status is Inactive ; Recorded 05/07/20 4:32PM by Nazia Jha PA-C, Annotati on/Adden dum; Promoted ; acuity set as *; Not Available [facility] 3 03:12:50 Sleep disorder 43200199 Completed 202005/07/2021 SLEEPING DIFFICUL TIES - Status is Inactive ; Recorded 05/07/20 4:32PM by Nazia Jha PA-C, Annotati on/Adden dum; Promoted ; acuity set as *; Not Available [facility] 3 03:12:57 Hyperlip idemia 00700107 Active 2022 HYPERLIP IDEMIA; Recorded 09/26/19 6:15AM by Lissa John LPN, Office Visit; Promoted ; acuity set as *; NAZIA JHA PA-C [address] [place], [address] , [facility] 5 16:20:56 Severe obesity 27622450920 104 Active 2022 OBESITY, MORBID, BMI 40.0-49. 9; Recorded 09/26/19 23 6:15AM by Lissa John LPN, Office Visit; Promoted ; acuity set as *; Ty Gottlieb MD [address] [place], [address] , [facility] 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 5 16:20:56 Coronary atherosc lerosis 556149014 Active 2022 CAD (CORONAR Y ARTERY DISEASE) ; Recorded 09/26/19 6:15AM by Lissa John LPN, Office Visit; Promoted ; acuity set as *; NAZIA JHA PA-C [address] [place], [address] , [facility], L.L.CJolie 5 16:20:56 Hypomagn esemia 629662688 Active 2022 HYPOMAGN ESEMIA; Recorded 09/26/19 6:15AM by Lissa John LPN, Office Visit; Promoted ; acuity set as *; NAZIA JHA PA-C [address] [place], [address] , [facility], L.L.CJolie 5 16:20:56 Chronic systolic heart failure 856395638 Active 2022 CHRONIC SYSTOLIC CONGESTI VE HEART FAILURE; Recorded 09/26/19 6:15AM by Lissa John LPN, Office Visit; Promoted ; acuity set as *; Ty Gottlieb MD [address] [place], [address] , [facility] 5 08:47:01 Diarrhea 48275349 Active 2022 CHRONIC DIARRHEA ; Recorded 09/26/19 6:15AM by Lissa John LPN, Office Visit; Promoted ; acuity set as *; NAZIA JHA PA-C [address] [place], [address] , [facility] 5 16:20:56 Gastroes ophageal reflux disease 331109524 Active 2022 ACID REFLUX; Recorded 09/26/19 6:15AM by Lissa John LPN, Office Visit; Promoted ; acuity set as *; NAZIA JHA PA-C [address] [place], [address] , [facility] 5 16:20:56 Chronic hypercap eric respirat ory failure 267282717 Active 2022 CHRONIC RESPIRAT ORY FAILURE WITH HYPERCAP BOOGIE; Recorded 10/02/19 1:57PM by Nazia Jha PA-C, Office Visit; Promoted ; acuity set as *; NAZIA JHA PA-C [address] [place], [address] , [facility] 5 16:20:56 Neuropat hy due to type 2 diabetes mellitus 62363158589 9106 Active 2022 NEUROPAT HY, DIABETIC ; Recorded 10/02/19 1:56PM by Nazia Jha PA-C, Office Visit; Promoted ; acuity set as *; NAZIA JHA PA-C [address] [place], [address] , [facility] 5 16:20:56 Acute exacerba tion of chronic obstruct jesus manuel pulmonar y disease 930818652 Completed 202210/01/2022 COPD WITH ACUTE EXACERBA TION - Status is Inactive ; Recorded 10/02/19 1:56PM by Nazia Jha PA-C, Annotati on/Adden dum; Promoted ; acuity set as *; LISSA JOHN [facility], [facility] 10:51:53 Chronic obstruct jesus manuel pulmonar y disease 97599001 Active 2022 NAZIA JHA PA-C [address] [place] [address], [address] [place] [address] , [facility] 16:20:56 Insomnia 863215272 Active 2022 NAZIA JHA PA-C [address] [place] [address], [address] [place] [address] , [facility] 16:20:56 Depressi ve disorder 69006632 Active 2022 NAZIA JHA PA-C [address] [place] [address], [address] [place] [address] , [facility] 16:20:56 Type 2 diabetes mellitus 66204236 Active 2022 Ty Gottlieb MD [address] [place] [address], [address] , [facility] 08:47:14 Essentia l hyperten gricelda 61012253 Active 2022 Ty Gottlieb MD [address] [place] [address], [address] [place] [address] , [facility] 08:46:51 COVID-19 236722628 Completed 202209/28/2024 NAZIA JHA PA-C [address] [place] [address], [address] [place] [address] , [facility] 5 16:20:06 Diabetes mellitus 95359091 Active 2022 [facility] 11:25:06 Hypothyr oidism 03923171 Active 2022 NAZIA JHA PA-C [address] [place], [address] , [facility] 5 16:20:56 Generali zed headache 829766624 Active 2023 NAZIA JHA PA-C [address] [place], [address] , [facility] 5 16:20:56 Osteoart hritis 810396879 Active 2023 LISSA balderas, [facility] 5 21:03:18 Chronic kidney disease stage 3B 577330316 Active 2023 NAZIA JHA PA-C [address] [place] [address], [address] , [facility] 5 16:20:56 Thrombop hlebitis 09623415 Completed 202309/28/2024 NAZIA JHA PA-C [address] [place] [address], [address] , [facility] 5 16:20:06 Acute upper respirat ory infectio n 48391338 Completed 202309/28/2024 NAZIA JHA PA-C [address] [place] [address], [address] , [facility] 5 16:20:06 Muscle spasm of cervical muscle of neck 58696348313 4 Active 2023 NAZIA JHA PA-C [address] [place] [address], [address] , [facility] 5 16:20:56 Sebaceou s cyst of skin 545213393 Completed 202309/28/2024 NAZIA JHA PA-C [address] [place] [address], [address] , [facility] 5 16:20:06 Acute respirat ory syncytia l virus bronchit is 549818680 Completed 202309/28/2024 NAZIA JHA PA-C [address] [place], [address] , [facility] 5 16:20:06 Herpes zoster 0871440 Active 2024 NAZIA JHA PA-C [address] [place] [address], [address] , [facility] 5 16:20:56 Irregula r heart beat 013084669 Active 2024 LISSA balderas, [facility] 5 10:52:27 Anxiety 13991051 Active 2024 LISSA HAALAINA null, [facility] 5 10:52:10 Moderate chronic obstruct jesus manuel pulmonar y disease 104032919 Active 2024 LISSA DORA null, [facility] 5 10:52:32 Chronic respirat ory failure 54989910 Active 2024 LISSA HAALAINA null, [facility] 5 10:52:21 Pain of left calf 92958244348 55864 Active 2024 Ty Gottlieb MD [address] [place], [address] , [facility] 08:47:17 Generali zed edema 376732114 Active 2024 LISSA DORA null, [facility] 11:56:19 Colitis 91413693 Active 2024 Ty Gottlieb MD [address] [place] [address], [address] , [facility] 08:46:26 Anemia due to blood loss 609670114 Active 2024 Ty Gottlieb MD [address] [place] [address], [address] , [facility] 08:46:41 Asthenia 83875105 Active 2024 Ty Gottlieb MD [address] [place] [address], [address] , [facility], L.L.CJolie 12:01:38 Platelet count above referenc e range 120360555 Active 2024 LISSA balderas [facility], L.L.CJolie 10:33:21 Gastroin testinal hemorrha ge 53607807 Active 2024 LISSA balderas [facility], L.L.CJolie 10:34:31 Iron deficien cy anemia 57283323 Active 2024 LISSA JOHN [facility], L.L.CJolie 10:35:04 Problem Notes None recorded. Procedures Surgical History Date Name Laterality Status Provider Name and Address Organization Details Recorded Time 02/08/20 25 echocardiography completed NAZIA JHA PA-C [address] [place] [address], [address], [facility], L.L.CJolie 02/10/2025 11:05:14 10/25/19 21 colonoscopy completed LISSA JOHN [facility], BlaireLJolieCJolie 04/23/2023 08:24:42 09/04/19 16 bone density scan completed LISSA JOHN [facility], LJolieLCindy 04/23/2023 08:24:58 Imaging Results None recorded. Procedure Notes None recorded. Medical Equipment None Reported. Allergies Allergen ID Allergen Name Allergen Category Reaction Reaction Severity Criticality Documentation Date Start Date Code Code System Note Provider Name and Address Organization Details Recorded Time 96068 metformin hydrochlo ride medicatio n diarrhea severe high 02/28/2023 23765 3 RxNorm Jaci Pollock [facility], Jamia 4 07:52:40 Medications Name Sig [...] Not Available Not Available No t Available Vitamin C 500 mg tablet Take 1 tablet every day [...] Available Not Available tramadol 50 mg tablet 1PO Q4h prn 2024 active Not Available Not [...] strips two times daily 04/23 completed vo KM/dh; Recorded 09/26/19 23 9:12AM by Lissa John LPN, Office Visit; Refill Quantity : 60; Each; Not Available Not Available Not Available cyclobenz aprine 5 mg tablet active Not Available Not Available No t Available iron 325 mg (65 mg iron) tablet Take 1 tablet twice a day by oral route. active Not Available Not Available No t Available Klor-Con M20 mEq tablet,ex tended release TAKE 1 BY MOUTH TWICE DAILY active Not Available Not Available No t Available Answer Blood Glucose System kit two times daily 04/23 completed vo KM/dh; Recorded 09/26/19 23 9:12AM by Lissa John LPN, Office Visit; Refill Quantity : 0; Not Available Not Available Not Available duloxetin e 30 mg capsule,d elayed release daily 07/08 completed vo KM/dh; 82524; Recorded 09/26/19 23 9:12AM by Lissa John LPN (Authori zed through Nazia Jha PA-C), Office Visit; Refill Quantity : 3; Capsule; Not Available Not Available Not Available magnesium two times daily 04/23 completed Recorded 09/26/19 9:12AM by Lissa John LPN, Office Visit; Refill Quantity : 60; Tablet; Not Available Not Available Not Available acetamino phen every six hours, as needed 04/23 completed 03288; Recorded 05/07/20 7:40AM by Lissa John LPN [...] needed 04/23 completed take only as needed km/dh; 66102; Recorded 08/05/19 3:54PM by Lissa John LPN (i raoul through Nazia Jha PA-C), Refill Request; Refill Quantity : 90; Tablet; Not Available Not Available Not Available albuterol sulfate every six hours, as needed 04/23 completed vo KM/dh; 93424; Recorded 10/21/19 5:03PM by Lissa John LPN (i raoul through Nazia Jha PA-C), Refill Request; Refill Quantity : 25; Unspecif ied; Not Available Not Available Not Available furosemid e once daily 04/23 completed vo KM/dh /barrow; Recorded 08/05/19 3:51PM by Lissa John LPN, Refill Request; Refill Quantity : 90; Tablet; Not Available Not Available Not Available carvedilo l every twelve hours 04/23 completed vo KM/dh; 49735; Recorded 09/09/19 4:26PM by Shaan Meadows (Authori zed through Nazia Jha PA-C), Office Visit; Refill Quantity : 60; Tablet; Not Available Not Available Not Available Plavix daily 04/23 completed [facility]/ /LONG; 24136; Recorded 03/03/20 4:22PM by Lissa John LPN (Authori zed through Nazia Jha PA-C), Refill Request; Refill Quantity : 30; Tablet; Not Available Not Available Not Available lisinopri l daily 04/23 completed [facility]//sw ift; 81510; Recorded 07/11/20 2:40PM by Federico santizo (Authori zed through Nazia Jha PA-C), Office Visit; Refill Quantity : 90; Tablet; Not Available Not Available Not Available Klor-Con two times daily 04/23 completed cs/smf; 55303; Recorded 07/07/20 2:41PM by Yoli Torres RN (Authori zed through Kendall Barrow DO), Refill Request; Refill Quantity : 60; Tablet; Not Available Not Available Not Available metolazon e daily 04/23 completed [facility]/; 69381; Recorded 09/09/19 4:26PM by Shaan Meadows (Authori zed through Nazia Jha PA-C), Office Visit; Refill Quantity : 15; Tablet; Not Available Not Available Not Available Sucralfat e Suspensio n two times daily 04/23 completed [facility]/; 75981; Recorded 08/12/19 11:50AM by Lissa John LPN (Authori zed through Nazia Jha PA-C), Annotati on/Adden dum; Refill Quantity : 600; Millilit er; Not Available Not Available Not Available Lantus U-100 Insulin 10units hs 02/14 completed Not Available Not Available Not Available Trazodone at bedtime 04/23 completed vo /govind /DEWAYNE; 60893; Recorded 08/05/19 23 3:54PM by Lissa John LPN (Authori raoul through Nazia Jha PA-C), Refill Request; Refill Quantity : 30; Tablet; Not Available Not Available Not Available cephalexi n 750 mg capsule TAKE 1 CAPSULE BY MOUTH THREE TIMES DAILY 04/23 completed Not Available Not Available Not Available Januvia 50 mg tablet daily 04/23 completed vo ALY/govind /pushpa; 84415; Recorded 11/06/19 22 7:42AM by Lissa John LPN (Authori raoul [...] Available Anoro Ellipta daily 04/23 completed /govind; 12869; Recorded 10/21/19 23 5:03PM by Lissa John LPN (Authori raoul [...] Updated DateTime 5 154.94 cm 41.9 kg/m2 958439. 51 g 94 % 94 % 91 /min 20 /min 97.4 [degF] 136/74 mm[Hg] LISSA FERGUSONHOUSTON [facility], L.L.CJolie 5 10:08:15 Date Recorded Body height Body mass index (BMI) Body weight Body temperature Respiratory rate Heart rate Oxygen saturation Oxygen saturation in Arterial blood by Pulse oximetry Systolic And Diastolic Provider Name and Address Organization Details Last Updated DateTime 5 154.94 cm 42.9 kg/m2 576788. 47 g 97.1 [degF] 20 /min 75 /min 97 % 97 % 140/62 mm[Hg] [facility] 5 12:38:44 Date Recorded Body height Body mass index (BMI) Body weight Heart rate Respiratory rate Body temperature Systolic And Diastolic Provider Name and Address Organization Details Last Updated DateTime 5 154.94 cm 44 kg/m2 297161. 02 g 73 /min 20 /min 97 [degF] 142/62 mm[Hg] [facility] 5 11:52:43 Date Recorded Body height Body mass index (BMI) Body weight Body temperature Respiratory rate Heart rate Systolic And Diastolic Provider Name and Address Organization Details Last Updated DateTime 5 154.94 cm 42.3 kg/m2 843236. 69 g 97.2 [degF] 18 /min 76 /min 138/68 mm[Hg] ALIYAH [facility], L.L.CJolie 5 10:31:50 Date Recorded Body height Body mass index (BMI) Body weight Oxygen saturation Oxygen saturation in Arterial blood by Pulse oximetry Heart rate Respiratory rate Body temperature Systolic And Diastolic Provider Name and Address Organization Details Last Updated DateTime 5 154.94 cm 43.1 kg/m2 564840. 06 g 99 % 99 % 72 /min 20 /min 97.5 [degF] 118/62 mm[Hg] LISSA JOHN [facility] 5 10:30:56 Social History Question Answer Notes LastModified by Icera ion Details LastModified Time Tobacco Smoking Status Never Smoker NAZIA JHA PA-C [address] [place], [address], [facility] 04/23/2023 15:25:00 What Was The Date Of Your Most Recent Tobacco Screening? 04/23/2023 [email or web address] Information not available 04/23/2023 Has Tobacco Cessation Counseling Been Provided? Yes [email or web address] Information not available 04/23/2023 On What Date Was Tobacco Cessation Counseling Provided? 04/22/2023 [email or web address] Information not available 04/23/2023 How Many Years Have You Used Smokeless Tobacco? 50 [email or web address] Information not available 04/23/2023 Sex: Unknown Functional Status Question Answer Note LastModified by [facility] Details LastModified Time Do you or have you ever used any other forms of tobacco or nicotine? Yes [email or web address] Information not available 04/23/2023 What is your level of alcohol consumption? None [email or web address] Information not available 04/23/2023 Do you or have you ever used smokeless tobacco? Current snuff user [email or web address] Information not available 04/23/2023 Do you or have you ever used e-cigarettes or vape? Never used electronic cigarettes [email or web address] Information not available 04/23/2023 Mental Status None [...] zoster recombinant 0 completed NAZIA JHA PA-C [address] [place], [address], [facility], L.LJolieC. 04/23/2023 12:56:21 Influenza, high-dose, quadrivalent, PF 0 completed NAZIA JHA PA-C [address] [place], [address], [facility], LJolieLJolieC. 04/23/2023 12:56:21 Pneumococcal conjugate PCV 13 5 completed NAZIA JHA PA-C [address] [place], [address], [facility], BlaireLJolieCJolie 04/23/2023 12:56:21 Influenza, adjuvanted, quadrivalent, PF 3 completed NAZIA JHA PA-C [address] [place], [address], [facility], LJolieLJolieC. 04/23/2023 15:22:00 zoster recombinant 0 completed NAZIA JHA PA-C [address] [place], [address], [facility], LJolieLJolieC. 04/23/2023 12:56:21 Tdap 0 completed NAZIA JHA PA-C [address] [place], [address], [facility], LJolieLJolieC. 04/23/2023 12:56:21 Tdap 6 completed Not Available [...] ICD10 Code Diagnosis IMO Codes Diagnosis Note [id number] NAZIA JHA PA-C [facility] ([facility]) [address] [place] [address] 04/23/2023 11:32:36 04/23/2023 16:04:22 Dry eyes 073859530 H04.121 Chronic ob structive pulmonary disease 24019163 J44.9 Needs infl uenza immunization 417434568 Z28.39 Chronic diarrhea 3396525 09 K52.9 Chronic sy stolic heart failure 843587164 I50.22 Hyperglycemia 85845665 R 73.9 Adult heal th examination 507671306 Z00.00 [id number] NAZIA JHA PA-C [facility] ([facility]) [address] [place] [address] 07/08/2023 12:48:03 07/27/2023 08:17:17 Diabetes mellitus 86532735 E11.9 discharge records and meds reviewed. labs and vitals reviewed. Type 2 [place] betes mellitus 75708050 E11.9 d/c humalog start lantus 10units at hs Essential hypertension 04773735 I10 COVID-19 237476183 U07.1 Acute resp iratory failure 41493712 J96.00 [id number] Ty Gottlieb MD [facility] ([facility]) [address] [place] [address] 07/15/2023 09:21:48 07/15/2023 14:13:24 Need for personal care assistance [id number] 3576222 Z74.1 Lives in [facility]cc 16 6428219 Z76.89 Chronic hy percapnic respiratory failure 159258426 J96.12 Chronic sy stolic heart failure 955860095 I50.22 Coronary atherosclerosis 673329172 I25.10 Diabetes mellitus 722045 09 E11.9 recent A1c was 7.3. Hypertensive disorder 38 706362 I10 Hypothyroidism 57188518 E03.9 [id number] Ty Gottlieb MD [facility] ([facility]) [address] [place] [phone] 5 08/12/2023 07:45:19 08/16/2023 20:52:55 Need for personal care assistance [id number] 6275448 Z74.1 Lives in [facility]cc 16 2139411 Z76.89 Chronic hy percapnic respiratory failure 194261329 J96.12 Chronic ob structive pulmonary disease 07322232 J44.9 Chronic sy stolic heart failure 848678276 I50.22 stable at present Diabetes mellitus 159143 09 E11.9 recent A1c was 7.3. Essential hypertension 16383929 I10 Headache 54147615 R51.9 [id number] Ty Gottlieb MD [facility] ([facility]) [address] [place], [place] [phone] 5 09/16/2023 07:48:29 09/16/2023 18:30:41 Need for personal care assistance [id number] 5333100 Z74.1 Pt. Not seen today Lives in [facility]cc 16 9659888 Z76.89 [id number] Ty Gottlieb MD [facility] ([facility]) [address] [place] [address] 5 09/17/2023 07:51:53 09/21/2023 09:35:34 Need for personal care assistance 9011548671 5018402 Z74.1 Lives in mcc 16 4705571 Z76.89 Neuropathy due to type 2 diabetes mellitus 8128367214 03658 E11.40 Severe obesity 701902810 1 9104 E66.01 Type 2 [place] betes mellitus 26986987 E11.9 Abdominal pain 89570562 R10.9 possible constipati on with loose stools or gastropare sis. KUB xray was ordered. [id number] NAZIA JHA PA-C [facility] ([facility]) [address] [place] [phone] 5 09/23/2023 10:50:46 10/10/2023 19:12:48 Diabetes mellitus 99663310 E11.9 CBC/CMP/A1 C Q 3 MONTHS TSH AND LIPIDS Q 6 MONTHS Headache 63558458 R51.9 NICOTINE PATCH 21MG X 4 WEEKS 14MG QD X 2 WEEKS AND 7MG X 2 WEEKS [id number] NAZIA JHA PA-C [facility] ([facility]) [address] [place] [phone] 5 09/30/2023 12:10:47 10/10/2023 22:03:33 Hyperkalemia 66674009 E87.5 d/c chlorthali done and tizanidine ,BMP one weekdecrea se mag 200mg qd, Headache 03944480 R51.9 pt thinks nicotiene patch is making POWER worse. d/c nicotine patch [id number] NAZIA JHA PA-C [facility] ([facility]) [address] [place] [phone] 5 10/07/2023 10:31:49 10/11/2023 20:18:42 Generalized headache 055999492 R51.9 pt/ot biofreeze, tramadol 50mg po qd prn Diabetic p eripheral neuropathy 036301401 E11.40 CCA form filled out during today's office visit Type 2 [place] betes mellitus 53935475 E11.69 Body mass index 40+ - severely obese 947534472 Z68.41 Coronary arteriosclerosis 29062171 I25.10 Essential hypertension 66412914 I10 Chronic ob structive pulmonary disease 17013805 J44.9 trelegy Abnormal gait 70447228 R 26.2 Dependence on enabling machine or device 136377874 Z99.89 Impaired mobility 388606 05 Z74.09 [id number] NAZIA JHA PA-C [facility] ([facility]) [address] [place] [phone] 5 10/21/2023 10:44:31 11/09/2023 09:46:35 Chronic kidney disease stage 3B 475891248 N18.32 Hyperkalemia 07427621 E8 7.5 cbc/bmp/ma g Thrombophlebitis 6830305 1 I80.9 right elbow wound care and silvaddene cream. Wound care team will start seeing her next week. Hospital i npatient stay within past 30 days [id number] 106 Z76.89 [id number] NAZIA JHA PA-C [facility] ([facility]) [address] [place] [id number] 5 10/28/2023 15:29:13 11/13/2023 17:13:59 Diabetes mellitus 56822244 E11.9 cbg bid Headache 15699298 R51.9 Hypomagnesemia 287576061 E83.42 vitals every day Dysphagia 46845298 R13.[address]/pt/bmp/ mg tomorrow [id number] Ty Gottlieb MD [facility] ([facility]) [address] [place] [phone] 5 11/04/2023 07:56:22 11/04/2023 18:02:13 Need for personal care assistance [id number] 9044899 Z74.1 Lives in mcc 16 7070400 Z76.89 Depressive disorder 3548 9007 F32.A Diabetes mellitus 931952 09 E11.9 recent A1c was 7.3. Essential hypertension 32180276 I10 Peripheral circulatory disorder due to type 2 diabetes mellitus 432225796 E11.59 Pain of ri ght shoulder joint 4322477650 7956558 M25.511 Unsure if fractured or just arthritic and spasm. Will check xray. [id number] NAZIA JHA PA-C [facility] ([facility]) [address] [place] [address] [phone] 5 11/11/2023 13:21:29 11/27/2023 14:34:29 Congestive heart failure 58895997 I50.9 LISINOPRIL 10MG QD, COREG 3.125MG BID MG AND BMPrestart meds that were stoppd due to abnormal K at last hospitaliz ation [id number] Ty Gottlieb MD [facility] ([facility]) [address] [place] [address] [phone] 5 01/13/2024 09:12:41 01/13/2024 17:07:01 Need for personal care assistance [id number] 5698482 Z74.1 Lives in [facility] 16 5094392 Z76.89 Chronic hy percapnic respiratory failure 744957867 J96.12 Chronic ki dney disease stage 3B 177219485 N18.32 Chronic ob structive pulmonary disease 48602456 J44.9 Essential hypertension 32987854 I10 [id number] NAZIA JHA PA-C [facility] ([facility]) [address] [place] [address] [phone] 5 01/20/2024 13:35:09 02/08/2024 07:06:36 Acute upper respiratory infection 02306539 J06.9 doxycyclin e 100mg bid x 7 dayspromet hazine dm 1 tsp q 6 hours prn x 7 daysMOnito r and report any decline in condition [id number] Ty Gottlieb MD [facility] ([facility]) [address] [place] [address] [phone] 5 03/23/2024 08:09:18 03/28/2024 11:24:38 Muscle spasm of cervical muscle of neck 5515363579 04 M62.838 Will get a PT eval and treat order for her neck pain and spasm. Hypertensive disorder 38 252399 I10 Headache 76478664 R51.9 Need for p ersonal care assistance [phone] 2772777 Z74.1 Lives in [facility]cc 16 3865479 Z76.89 [id number] NAZIA JHA PA-C [facility] ([facility]) [address] [place] [address] [phone] 5 04/20/2024 11:55:49 05/01/2024 21:49:40 Sebaceous cyst of skin 142177552 L72.3 I AND D NEXT WEEK if not improved. [id number] Ty Gottlieb MD [facility] ([facility]) [address] [place] [address] [phone] 5 05/04/2024 11:40:31 05/09/2024 11:55:46 Need for personal care assistance [id number] 5036335 Z74.1 Lives in [facility] 16 2799758 Z76.89 Chronic ki dney disease stage 3B 900579895 N18.32 Diabetes mellitus 811851 09 E11.9 Essential hypertension 77347294 I10 Muscle spa sm of cervical muscle of neck 8417954991 04 M62.838 Continue present management . Osteoarthritis 626842432 M19.90 Chronic ob structive pulmonary disease 72757804 J44.9 stable. [id number] NAZIA JHA PA-C [facility] ([facility]) [address] [place] [address] [phone] 5 05/11/2024 12:20:50 06/05/2024 22:17:10 Diabetes mellitus 68412830 E11.9 CMP/MG/A1C TRULICITY .75MG SC WEEKLY Essential hypertension 58102962 I10 LISINOPRIL 20MG QD, COREG 6.25MG BID Chronic ob structive pulmonary disease 98497274 J44.9 trelegy [id number] NAZIA JHA PA-C [facility] ([facility]) [address] [place] [address] [phone] 5 07/06/2024 12:08:59 07/31/2024 07:56:21 Neck pain 88307293 M54.2 PT,CYCLOBE NZAPRINE 5MG 1 PO QD PRNshe already gets Tramadol routinely. [id number] Ty Gottlieb MD [facility] ([facility]) [address] [place] [address] [phone] 5 07/13/2024 08:03:48 07/15/2024 08:09:54 Need for personal care assistance [id number] 2460113 Z74.1 Lives in [facility]cc 16 3007795 Z76.89 Chronic ki dney disease stage 3B 512075283 N18.32 Chronic ob structive pulmonary disease 16965480 J44.9 stable. 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 Acute resp iratory syncytial virus bronchitis 054283821 J20.5 monitor. ER records reviewed. notify MD or send ER if any s/s of respirator y decline [id number] NAZIA JHA PA-C [facility] ([facility]) [address] [place] [address] [phone] 5 08/10/2024 10:33:56 08/26/2024 16:10:02 Herpes zoster 1413100 B02.9 valcyclovi r 1000mg tid [id number] Ty Gottlieb MD [facility] ([facility]) [address] [place] [address] [phone] 5 09/14/2024 09:24:12 09/16/2024 07:26:55 Need for personal care assistance [id number] 1456640 Z74.1 Lives in [facility]cc 16 5040163 Z76.89 Acute resp iratory failure 85622921 J96.00 greatly imoroved. Chronic ki dney disease stage 3B 266849007 N18.32 Chronic ob structive pulmonary disease 92812489 J44.9 stable. Recent RSV, doing better now. [id number] NAZIA JHA PA-C [facility] ([facility]) [address] [place] [address] [phone] 5 09/28/2024 10:42:33 09/28/2024 16:26:45 Adult health examination 866162213 Z00.00 H&P pt labs and meds and vitals are reviewed. Her BP and A1C and lipid are all at goalShe is stable Diabetes mellitus 562359 09 E11.9 A1C 6.3 Neck pain 77323130 M54.2 TRAZADONE 50MG AT HS PRN X 14 DAYS Hyperkalemia 62375203 E8 7.5 REPEAT K+ 5.4 IN 2 WEEKS WITH MG Chronic sy stolic heart failure 521714031 I50.22 Chronic ob structive pulmonary disease 54726696 J44.9 Chronic ki dney disease stage 3B 654075617 N18.32 Chronic hy percapnic respiratory failure 349607664 J96.12 Coronary atherosclerosis 146481978 I25.10 Depressive disorder 3548 9007 F32.A Essential hypertension 25337975 I10 LISINOPRIL 20MG QD, COREG 6.25MG BID Hyperlipidemia 58935850 E78.5 Hypothyroidism 92937188 E03.9 Insomnia 435067202 G47.0 0 Neuropathy due to type 2 diabetes mellitus 4225886819 42417 E11.40 Severe obesity 466565915 1 9104 E66.01 Type 2 [place] betes mellitus 20852213 E11.69 Body mass index 40+ - severely obese 400881478 Z68.42 [id number] NAZIA JHA PA-C [facility] ([facility]) [address] [place] [address] [phone] 5 10/26/2024 10:59:11 10/26/2024 16:46:46 Pneumonia 915525269 J18.9 ON LEVAQUIN Post-disch arge follow-up 334891383 Z09 med records reviewed and meds reconciled . Irregular heart beat 361 501671 R00.8 CBC/BMP/MA G/ EKG / 3 day HOLTERD/C TRAZODONE AND CYCLOBENZA MANNIE Chronic ob structive pulmonary disease 01196480 J44.9 Difficulty walking 08581 2003 R26.2 CCA form filled out during today's office visit Impaired mobility 419156 05 Z74.09 Dependence on wheel chair 203548084 Z99.3 Long-term oxygen therapy 807668997 Z99.81 Mood disorder 90312780 F 33.2 [id number] NAZIA JHA PA-C [facility] ([facility]) [address] [place] [address] [phone] 5 11/02/2024 10:49:13 11/05/2024 06:20:38 Acute kidney injury 37914990 N17.9 cr improved 1.86 to 1.8 increase in k+ baseline is .8cbc/bmp/ mg in 1 week [id number] Ty Gottlieb MD [facility] ([facility]) [address] [place] [address] [phone] 5 11/16/2024 08:13:35 11/16/2024 23:01:47 Chronic obstructive pulmonary disease 78856699 J44.9 stable. Will add BID albuterol nebulizers for now with QID prn. Chronic sy stolic heart failure 588874541 I50.22 stable at present Diabetes mellitus 096820 09 E11.9 Essential hypertension 65723092 I10 Muscle spa sm of cervical muscle of neck 0133090700 04 M62.838 Continue present management . Osteoarthritis 903596944 M19.90 [facility] [id number] 4719204 Z74.1 Lives in [facility]cc 16 5397854 Z76.89 [id number] NAZIA JHA PA-C [facility] ([facility]) [address] [place] [address] [phone] 5 12/07/2024 10:57:36 12/23/2024 16:57:33 Anxiety 76166258 F41.9 39512 CYMBALTA 60MG QD Pt always wants more meds to sleep. last time I added tranzadone she had acute delirium and ended up in the hospital. Diabetes mellitus 706043 09 E11.9 INCREASE TRULICITY 1.5MG Q WEEKLY Pain 34869561 R52 036237 TIZANADINE 2MG Q 8 HOURS PRN [id number] NAZIA JHA PA-C [facility] ([facility]) [address] [place] [address] [phone] 5 12/28/2024 10:37:08 01/09/2025 10:24:16 Acute exacerbation of chronic obstructive pulmonary disease 759046416 J44.1 561582 doxy 100mg po bid x 7 d and prednisone 40 mg po qd x 5dshe has neb tx tid already.mo nitor for worsening s/s of respirator y distress [id number] Ty Gottlieb MD [facility] ([facility]) [address] [place] [address] [phone] 5 01/11/2025 08:38:17 01/13/2025 09:16:55 Lives in [facility]cc 910318594 Z78.9 [id number] Need for p [facility] care assistance [id number] 5984060 Z74.1 5872167 Chronic ki dney disease stage 3B 312207505 N18.32 Chronic hy percapnic respiratory failure 329453649 J96.12 Chronic sy stolic heart failure 765606312 I50.22 stable at present Coronary atherosclerosis 487986606 I25.10 Diabetes mellitus 536023 09 E11.9 Essential hypertension 75195077 I10 [id number] NAZIA JHA PA-C [facility] ([facility]) [address] [place] [address] [phone] 5 02/08/2025 10:24:56 02/28/2025 14:46:20 Moderate chronic obstructive pulmonary disease 216696587 J44.9 246900 prednisone 40mg qd x 5 days,d/c trelegy start budosenide 1mg bid per neb and formotorol 15mcg bid pr neb, yulperi 175mg qd per neb Diabetes mellitus 308229 09 E11.9 13867 Continue to monitor sugars and A1C . ON trulicity. [id number] NAZIA JHA PA-C [facility] ([facility]) [address] [place] [address] [phone] 5 02/22/2025 10:01:41 03/01/2025 17:41:07 Chronic respiratory failure 70937729 J96.10 2447016 Bilateral pneumonia 4076 68849 J18.9 795123107 [facility] UGMENT[facility] AND PREDNISONE NOW dooing great. Post-disch arge follow-up 701332402 Z09 351229 med records reviewed and meds reconciled . [id number] Ty Gottlieb MD [facility] ([facility]) [address] [place] [address] [phone] 5 03/08/2025 12:13:40 03/08/2025 16:05:03 Need for personal care assistance [phone] 5576791 Z74.1 1152388 Lives in [facility] 16 9392523 Z78.9 7518285 Essential hypertension 18807707 I10 Chronic sy stolic heart failure 704563352 I50.22 stable at present Chronic ob structive pulmonary disease 35921270 J44.9 Will check CXR due to left chest pain and recent hospitaliz ation from COPD/CHF exacerbati on. Pain of left calf 094739 1954 037767 M79.662 35195969 With edema and recent hospitaliz ation. WIll check venous doppler to ensure no DVT. [id number] NAZIA JHA PA-C [facility] ([facility]) [address] [place] [address] [phone] 5 03/15/2025 10:55:06 03/21/2025 11:39:57 Moderate chronic obstructive pulmonary disease 901879271 J44.9 660863 D/C YULPERI (not covered by insurance) START SPIRIVA 1 PUFFQD Generalized edema 284708 008 R60.1 19766 INCREASSE LASIX 40MG BID [id number] Ty Gottlieb MD [facility] ([facility]) [address] [place] [address] [phone] 5 05/17/2025 09:05:03 05/17/2025 12:36:58 Need for personal care assistance [id number] 2287141 Z74.1 6774246 Lives in [facility]cc 16 2851346 Z78.9 5771369 Colitis 75819300 K52.9 653032 continue antibiotic s till gone. Will get reevaluati on by surgeon in 6 weeks. Anemia due to blood loss 921767592 D50.0 931786 will recheck CBC to monitor. She has had Elialie held pending reevaluati on of hgb. Essential hypertension 38520607 I10 Chronic sy stolic heart failure 173945911 I50.22 stable at present Type 2 [place] betes mellitus 78560334 E11.69 Severe obesity 745299677 1 9104 E66.01 Asthenia 29984286 R53.1 19012 Will try some PT for strengthen ing and see if it will help some with this. Probably from hospitaliz ation and colitis. Health Concerns Section Related Observation LastModified by Organization Detai ls LastModified Time None Recorded Concern Status LastModified by Organization Details LastModified Time None Recorded Advance Directives Directive None Recorded Payers Insurance Date Sequence Insurance Name Policy Number Policy Diggs Covered Member ID Diggs Member ID Guarantor Name 05/17/2025 [place] [facility] ([facility]ITUTION[facility] L) Lauren Jose [id number] Lauren Jose 05/24/2025 1 [facility] (MEDICARE REPLACEMENT/A DVANTAGE - PPO) [id number] Lauren Jose [id number] Lauren Jose 05/17/2025 2 [place] Lauren Jose [id number] Lauren Jose Notes Date Note Type Note Provider Name and Address Organization Details Recorded Time 5 text/html Upper Respiratory SymptomsReported by PatientUpper Respiratory SymptomsFor quality, patient [...] states she feels great. Ty Gottlieb MD [address] [place] [address], [phone], [facility] 02/27/2025 09:30:17 5 text/html Patient complains of some left upper chest wall pain worse with cough. She was recently hospitilized with bronchitis/COPD exacerbation. She also complains of some swelling and pain in left lower leg. No increased dyspnea at this time. Ty Gottlieb MD [address] [place] [address], [phone], [facility] 03/08/2025 15:00:09 5 text/html COPDReported by PatientHPI:For onset/timing, patient reportsmultiple times per day. For duration, patient reportschronicandconst ant. For severity, patient reportsmoderate. For alleviating factors, patient reportsrelieved with restandrelieved with oxygen. increase in her edema and 10 lb wt gain since she has been back from the hospital 3 weeks ago.More SOB and wheezing, pulmonary congestion Ty Gottlieb MD [address] [place] [address], [phone], [facility] 03/17/2025 15:18:41 5 text/html Recent treatment for colitis or diverticulitis with acute blood loss anemia also. She was admitted to the hospital and discharged with antibiotics. She is feeling better but still some pain. She would like to be able to walk more as she has some swelling. Ty Gottlieb MD [address] [place] [address], [phone], [facility] 05/17/2025 12:02:46 5 text/html AnemiaReported by PatientHPIFor context, patient reportsprevious hemoglobin:andprevious hematocrit:. For duration, patient reportsconstant. For timing, patient reportsgradual. Not Available Not Available Not Available OBGyn Episode No OBEpisode recorded.
--- OUTSIDE RECORDS SUMMARY | 2025-05-26 09:51 | XMS_ITS | Patient Health Record ---
Author Organization [facility] Address [address] [place] [address] Support Name Relationship Address Phone Lauren Jose Guarantor Unknown Unavailable Reason For Referral No Information Plan Of Treatment No Information
--- NOTE | 2025-05-26 09:58 | XR_ITS ---
WS: [id number] Portable AP upright chest, 05/26/2025 Clinical Data: sob Comparison: Portable chest, 02/14/2025 Findings: No nodules, masses or effusions are seen. The heart is enlarged. The pulmonary vascularity is slightly increased. No pneumonia or pneumothorax is seen. The aortic arch shows calcification. Epidural stimulator leads are present in the distal thoracic spine. XR/XR chest 1V portable [id number] Impression: Cardiomegaly with mild pulmonary vascular congestion.
--- NOTE | 2025-05-26 09:58 | CT_ITS ---
WS: [id number] CT ABDOMEN PELVIS TECHNIQUE: Contrast-enhanced CT of the abdomen and pelvis with coronal and sagittal reformatted images. CLINICAL INFORMATION: abdominal pain; recent diverticulitis/rectal bleeding COMPARISON: [place] [address] DLP: 1002.[address] scans at [facility] use at least one of these dose optimization techniques: automated exposure control; mA and/or kV adjustment per patient size (includes targeted exams where dose is matched to clinical indication); or iterative reconstruction. FINDINGS: Previously described LEFT colitis or diverticulitis has essentially resolved compared to previous. Interval resolution of the previously described inflammatory stranding and edema. Only tiny amount of residual induration in the LEFT descending colon. No drainable abscess or fluid collection. Sigmoid colonic diverticulosis. Cholecystectomy. Small esophageal hiatal hernia. Cardiomegaly. Tiny bilateral pleural effusions. Subsegmental atelectasis in the lung bases. Groundglass opacities in the lower lobes likely due to edema. Fatty liver. Normal portal vein and splenic vein. Normal spleen. Normal pancreatic parenchymal enhancement. Mild thickening of the adrenal glands unchanged. Normal renal parenchymal enhancement. No hydronephrosis. Stable increased attenuation 10 mm indeterminate LEFT renal lesion. Spinal stimulator. Small fat-containing umbilical hernia. CT/CT abdomen pelvis w con* [id number] IMPRESSION: 1. Previously described LEFT colitis or diverticulitis has essentially resolve d described above 2. Trace bilateral pleural effusion with compressive atelectasis in the lung bases with edema is new compared to previous. 3. No other interval changes. 4. Stable indeterminate increased attenuation 10 mm LEFT renal lesion. This ca n be followed up with ultrasound on an elective basis
--- NOTE | 2025-05-26 10:00 | W.ED.RECABL ---
Documented by User: AURE Price 05/26/25 12:28 HPI - Recheck/Abnormal Lab/Rx General: Chief Complaint: Recheck/Abnormal Lab/Rx Stated Complaint: abnormal labs - nausea Time Seen by Provider: 05/26/25 09:50 Source: patient and EMS Mode of arrival: EMS Limitations: no limitations History of Present Illness: Patient is a 79-year-old female with a plethora of comorbidities here via EMS from her [facility] due to labs being performed showing a hemoglobin of 6.6. Patient was recently admitted to the hospital earlier this month due to a lower GI bleed (diverticular bleed) as she had diverticulitis on her CT scan. She was subsequently admitted, had blood transfusion, and was treated with antibiotics. She does have follow-up with general surgery next month for colonoscopy following her diverticulitis flare resolution. Her Eliquis was stopped at that time. Unknown whether she has resumed this. According to EMS report, [facility] was performing routine labs when they noticed her hemoglobin was 6.6. It looks like she was around 7.7 at time of discharge from the hospital. Patient is not complaining of bloody or black stools. Upon arrival, she is complaining of abdominal pain. She does have a history of COPD and CHF and chronically wears oxygen. She reportedly was not wearing oxygen en route and arrives satting around 77%. She was placed on 3L NC and slowly came back up and during my exam did get up to 95%. complaint: abnormal lab Initial visit (ago): week(s) Initial visit for: other (diverticulitis ) Returns today for: called because of abnormal lab/test Symptoms since prior visit: no new symptoms Context: called for abnormal lab result Associated symptoms: abdominal pain ([facility] did not report this-said it just started upon arrival) Related Data Home Medications ?Medication ?Instructions ?Recorded ?Confirmed atorvastatin 20 mg tablet (Lipitor) 20 mg PO BEDTIME 09/30/19 05/26/25 acetaminophen 325 mg tablet 325 mg PO QID Pain 08/22/20 05/08/25 (Tylenol) buspirone 10 mg tablet 10 mg PO BID 12/13/20 05/08/25 albuterol sulfate 90 mcg/actuation 2 puff inhalation BID PRN 08/21/23 05/08/25 aerosol inhaler Shortness Of Breath bisacodyl 10 mg rectal suppository 10 mg MA DAILY PRN Constipation 10/08/23 05/08/25 isosorbide mononitrate 30 mg 30 mg PO DAILY 10/08/23 05/26/25 tablet,extended release 24 hr magnesium hydroxide 400 mg/5 mL 30 ml PO DAILY PRN Constipation 10/08/23 05/08/25 oral suspension (Milk of Magnesia) sodium phosphates 19 gram-7 118 ml MA DAILY PRN Constipation 10/08/23 05/08/25 gram/118 mL enema (Fleet Enema) dicyclomine 20 mg tablet 20 mg PO BID PRN stomach discomfort 10/27/23 05/08/25 guaifenesin 100 mg/5 mL oral liquid 200 mg PO Q4H PRN Cough 10/23/24 05/08/25 loratadine 10 mg tablet 10 mg PO DAILY 10/23/24 05/26/25 ondansetron 4 mg disintegrating 4 mg PO Q4H PRN Nausea 10/23/24 05/08/25 tablet tizanidine 2 mg capsule 2 mg PO Q8H PRN Muscle Spasm 12/21/24 05/08/25 albuterol sulfate 2.5 mg/3 mL 2.5 mg inhalation BID PRN Wheezing 02/12/25 05/08/25 (0.083 %) solution for nebulization arformoterol 15 mcg/2 mL solution 15 mcg inhalation BID 02/12/25 05/08/25 for nebulization budesonide 1 mg/2 mL suspension 1 mg inhalation BID 02/12/25 05/08/25 for nebulization dulaglutide 1.5 mg/0.5 mL 1.5 mg SUBCUT Q7D 02/12/25 05/08/25 subcutaneous pen injector ([facility]) zinc oxide 1 applic topical PRN may keep at 02/12/25 05/08/25 bedside carvedilol 6.25 mg tablet 6.5 mg PO BID 05/08/25 05/08/25 duloxetine 60 mg capsule,delayed 60 mg PO DAILY 05/08/25 05/26/25 release Held on 05/10/25. Instructions: Resume on 05/16/25. insulin glargine 100 unit/mL 20 unit SUBCUT BEDTIME 05/08/25 05/08/25 subcutaneous solution (Lantus U-100 Insulin) magnesium oxide 400 mg (241.3 mg 200 mg PO BID 05/08/25 05/08/25 magnesium) tablet (MagOx) menthol 4 % topical gel (Biofreeze 1 applic topical TID PRN Pain 05/08/25 05/08/25 (menthol)) tiotropium bromide 2.5 1 inh inhalation DAILY 05/08/25 05/08/25 mcg/actuation mist for inhalation (Spiriva Respimat) levothyroxine 50 mcg tablet 50 mcg PO QAM 05/26/25 05/26/25 Previous Rx's ?Medication ?Instructions ?Recorded furosemide 40 mg tablet 40 mg PO DAILY 30 days #30 tabs 07/04/23 amlodipine 10 mg tablet 10 mg PO DAILY #60 tabs 10/10/23 hydralazine 50 mg tablet 50 mg PO TID #60 tabs 02/16/25 lisinopril 20 mg tablet 10 mg (1/2 x 20 mg) PO DAILY #30 02/16/25 tabs pantoprazole 40 mg tablet,delayed 40 mg PO DAILY #30 tabs 02/16/25 release (Protonix) ciprofloxacin HCl 500 mg tablet 500 mg PO BID #14 tabs 05/10/25 Allergies Allergy/AdvReac Type Severity Reaction Status Date / Time No Known Allergies Allergy Verified 12/21/24 08:12 [facility] PFSH: Medical History Heart failure with improved ejection fraction (HFimpEF) Bradycardia Hyperkalemia Anemia Acute diverticulitis Heart block AV third degree Obesity hypoventilation syndrome Hyperkalemia Morbid obesity Acute respiratory failure with hypoxia and hypercapnia Shortness of breath Acute kidney injury Chronic CHF (congestive heart failure) Hypokalemia Hypomagnesemia Torsades de pointes Diarrhea Takotsubo cardiomyopathy Gastritis Blood in stool Acute HFrEF (heart failure with reduced ejection fraction) HFrEF (heart failure with reduced ejection fraction) Stress-induced cardiomyopathy Diabetes Hypertension Non-ST elevation [place] (NSTEMI) History of cerebrovascular accident COPD (chronic obstructive pulmonary disease) Hypertension Depression with anxiety History of GI bleed GERD (gastroesophageal reflux disease) Diabetes CVA (cerebral vascular accident) COPD (chronic obstructive pulmonary disease) Carpal tunnel syndrome on both sides Opioid contract exists Encounter for long-term use of opiate analgesic Chronic radicular low back pain Smokeless tobacco use Low back pain Surgical History History of esophagogastroduodenoscopy (EGD) (~11/2020) History of colonoscopy (~11/2020) H/O knee surgery History of knee replacement History of lumbar surgery Also history of spinal cord stimulator, currently not functioning History of shoulder surgery Family History Other CAD (coronary artery disease) Diverticulitis Hypertension Stroke Denies family history of Anesthesia complication Bleeding disorder Social History Smoking and tobacco/nicotine status: former use of tobacco/nicotine Quit status (tobacco/nicotine): has quit using Year quit tobacco: 2012 Former quit date comment: 2ppd X 48 years Alcohol intake: never Substance/Drug Use: never Housing: Intermediate Physical Exam Const: COMMON NORMALS: patient oriented x3, no limitations and alert GENERAL APPEARANCE: cooperative and other (chronically ill appearing) NUTRITIONAL APPEARANCE: obese morbidly obese (BMI 45.3) HENMT: COMMON NORMALS: normocephalic and atraumatic HEAD & SCALP: normocephalic and atraumatic FACE & SINUS: normal facial exam Eye: COMMON NORMALS: no scleral icterus GENERAL EYE: appearance normal, both eyes and all related structures Neck/C-Spine: COMMON NORMALS: no JVD Chest: COMMONS NORMALS: normal inspection of the chest Resp: COMMON NORMALS: normal respiratory effort AUSCULTATION: rhonchi OTHER: chronically wears 2-3L O2 Cardio: COMMON NORMALS: no JVD, regular rate and regular rhythm RATE: regular rate RHYTHM: regular rhythm GI: COMMON NORMALS: Soft to palpation and no masses INSPECTION: Yes central obesity AUSCULTATION: Yes normoactive bowel sounds PALPATION: Yes Soft to palpation and Yes Tenderness to palpation present (GI) (upper abdomen) : COMMON NORMALS: Yes no CVA tenderness BLADDER/KIDNEY EXAM: Yes no CVA tenderness Back/Pelvis: COMMON NORMALS: no CVA tenderness Extremity: GENERAL: Yes normal exam except as noted Neuro: COMMON NORMALS: patient oriented x3, moves all extremities, no focal motor deficits and no sensory deficits noted SENSORIUM/ORIENTATION: Yes alert GAIT: Yes Unable to assess gait Skin: COMMON NORMALS: no rashes or lesions noted NARRATIVE SKIN EXAM: pale GENERAL SKIN EXAM: no rashes or lesions noted Course Vital Signs: Vital signs: Vital Signs Temperature 98.2 F 05/26/25 12:44 Pulse Rate 74 05/26/25 12:44 Respiratory Rate 17 05/26/25 12:44 Blood Pressure 127/76 05/26/25 12:44 Pulse Oximetry 95 05/26/25 12:44 Oxygen Delivery Me thod Nasal Cannula 05/26/25 11:15 Oxygen Flow Rate 3 05/26/25 11:15 MDM - Recheck/Abnormal Lab/Rx Medical Decision Making Patient here from her [facility] after her recent blood work showed a hemoglobin of 6.5. She was recently discharged from our hospital several weeks ago with a hemoglobin of 7.7 after a diverticular bleed. Hemoccult today is negative. She was complaining of abdominal pain upon arrival thus CT imaging was obtained to evaluate for worsening diverticular disease, abscess, perforation. This was essentially unremarkable. Her diverticulitis has essentially resolved. She is not febrile or hypotensive or tachycardic. Her white count is normal. CXR does appear slightly fluid overloaded. She is not requiring more oxygen. Will have the [facility] double up on her Lasix for the next 3 days. She was given a unit of blood here. Will try to have general surgery see her earlier than her currently scheduled visit. Case was discussed with Dr. Quinn who agrees with care here and decision to be discharged back to [facility]. Medical Records I reviewed the patient's medical records. Lab Data I reviewed the patient's lab results. 05/26/25 10:02 05/26/25 10:02 Radiology Impressions Abdomen/Pelvis CT 05/26/25 09:58 IMPRESSION: 1. Previously described LEFT colitis or diverticulitis has essentially resolved described above 2. Trace bilateral pleural effusion with compressive atelectasis in the lung bases with edema is new compared to previous. 3. No other interval changes. 4. Stable indeterminate increased attenuation 10 mm LEFT renal lesion. This can be followed up with ultrasound on an elective basis Chest X-Ray 05/26/25 09:58 Impression: Cardiomegaly with mild pulmonary vascular congestion. Laboratory Results WBC 11.13 10^3/uL (3.29-11.43) 05/26/25 10:02 RBC 3.22 10^6/uL (3.85-5.65) L 05/26/25 10:02 Hgb 6.50 g/dL (11.27-16.99) L* 05/26/25 10:02 Hct 24.6 % (36-47) L 05/26/25 10:02 MCV 76.4 fl (85-98) L 05/26/25 10:02 MCH 20.2 pg (27-33) L 05/26/25 10:02 MCHC 26.4 g/dL (30-55) L 05/26/25 10:02 RDW 20.0 % (12.1-15.1) H 05/26/25 10:02 Plt Count 571 10^3/cmm (157-399) H 05/26/25 10:02 MPV 8.9 fL (7.4-10.4) 05/26/25 10:02 Neut % (Auto) 81.3 % 05/26/25 10:02 Lymph % (Auto) 9.2 % 05/26/25 10:02 [place] % (Auto) 7.8 % 05/26/25 10:02 Eos % (Auto) 0.8 % 05/26/25 10:02 Baso % (Auto) 0.4 % 05/26/25 10:02 Neut # (Auto) 9.04 10^3/uL (1.8-7.7) H 05/26/25 10:02 Lymph # (Auto) 1.0 10^3/uL (0.8-4.8) 05/26/25 10:02 [place] # (Auto) 0.9 10^3/uL (0.2-0.9) 05/26/25 10:02 Eos # (Auto) 0.1 10^3/uL (0.0-0.8) 05/26/25 10:02 Baso # (Auto) 0.1 10^3/uL (0.0-0.1) 05/26/25 10:02 Nucleated RBC % (auto) 0.2 % 05/26/25 10:02 Nucleated RBCs # 0.0 /100WBC 05/26/25 10:02 Sodium 141 mmol/L (136-145) 05/26/25 10:02 Potassium 4.6 mmol/L (3.5-5.1) 05/26/25 10:02 Chloride 99 mmol/L (98-107) 05/26/25 10:02 Carbon Dioxide 32 mmol/L (22-29) H 05/26/25 10:02 Anion Gap 14.6 (5-19) 05/26/25 10:02 BUN 18 mg/dL (8-23) 05/26/25 10:02 Creatinine 0.6 mg/dL (0.5-0.9) 05/26/25 10:02 GFR Calculation Not Reportable 05/26/25 10:02 Glucose 164 mg/dL (65-115) H 05/26/25 10:02 Calculated Osmolality 298 mOsm/kg (285-295) H 05/26/25 10:02 Calcium 9.3 mg/dL (8.5-10.5) 05/26/25 10:02 Total Bilirubin 0.5 mg/dL (0.15-1.2) 05/26/25 10:02 AST 7 U/L (0-32) 05/26/25 10:02 ALT 6 U/L (0-33) 05/26/25 10:02 Alkaline Phosphatase 76 U/L (35-105) 05/26/25 10:02 Total Protein 7.1 g/dL (6.6-8.7) 05/26/25 10:02 Albumin 3.7 g/dL (3.5-5.2) 05/26/25 10:02 Globulin 3.4 g/dL (1.3-4.6) 05/26/25 10:02 Lipase 19 U/L (13-60) 05/26/25 10:02 Blood Type A Negative 05/26/25 10:02 Rho(D) Type Rh negative 05/26/25 10:02 Antibody Screen Negative 05/26/25 10:02 Crossmatch See Detail 05/26/25 10:02 All radiology interpretation(s) finalized by discharge Discharge Plan Discharge Patient Disposition: Home Clinical Impression: Anemia Qualifiers: Anemia type: unspecified type Qualified Code(s): D64.9 - Anemia, unspecified Condition: Stable Prescriptions: No Action atorvastatin [Lipitor] 20 mg tablet 20 mg PO BEDTIME albuterol sulfate 90 mcg/actuation HFA aerosol inhaler 2 puff inhalation BID PRN (Reason: Shortness Of Breath) dicyclomine 20 mg tablet 20 mg PO BID PRN (Reason: stomach discomfort) tizanidine 2 mg capsule 2 mg PO Q8H PRN (Reason: Muscle Spasm) acetaminophen [Tylenol] 325 mg Tablet 325 mg PO QID buspirone 10 mg tablet 10 mg PO BID furosemide 40 mg Tablet 40 mg PO DAILY 30 Days Qty: 30 0RF albuterol sulfate 2.5 mg /3 mL (0.083 %) solution for nebulization 2.5 mg inhalation BID PRN (Reason: Wheezing) arformoterol 15 mcg/2 mL solution for nebulization 15 mcg INHALATION BID budesonide 1 mg/2 mL suspension for nebulization 1 mg inhalation BID zinc oxide Ointment 1 applic TOPICAL PRN Trulicity 1.5 mg/0.5 mL pen injector 1.5 mg SUBCUT Q7D Rx Instructions: hydralazine 50 mg tablet 50 mg PO TID Qty: 60 0RF lisinopril 20 mg tablet 10 mg PO DAILY Qty: 30 0RF pantoprazole [Protonix] 40 mg tablet,delayed release (DR/EC) 40 mg PO DAILY Qty: 30 0RF insulin glargine [Lantus U-100 Insulin] 100 unit/mL Solution 20 unit SUBCUT BEDTIME magnesium oxide [MagOx] 400 mg (241.3 mg magnesium) Tablet 200 mg PO BID duloxetine 60 mg capsule,delayed release(DR/EC) 60 mg PO DAILY Spiriva Respimat 2.5 mcg/actuation mist 1 inh INHALATION DAILY Biofreeze (menthol) 4 % Gel 1 applic TOPICAL TID PRN (Reason: Pain) carvedilol 6.25 mg tablet 6.5 mg PO BID ciprofloxacin HCl 500 mg tablet 500 mg PO BID Qty: 14 0RF levothyroxine 50 mcg tablet 50 mcg PO QAM isosorbide mononitrate 30 mg tablet extended release 24 hr 30 mg PO DAILY magnesium hydroxide [Milk of Magnesia] 400 mg/5 mL Suspension 30 ml PO DAILY PRN (Reason: Constipation) bisacodyl 10 mg Suppository 10 mg MA DAILY PRN (Reason: Constipation) Fleet Enema 19-7 gram/118 mL Enema 118 ml MA DAILY PRN (Reason: Constipation) amlodipine 10 mg tablet 10 mg PO DAILY Qty: 60 4RF guaifenesin 100 mg/5 mL Liquid 200 mg PO Q4H PRN (Reason: Cough) ondansetron 4 mg Tablet,Disintegrating 4 mg PO Q4H PRN (Reason: Nausea) loratadine 10 mg Tablet 10 mg PO DAILY Discharge Orders: Discharge ED (Routine); Ordered 05/26/25 Ordered By: Margaret Hernandez Referrals: Nazia Jha PA [Primary Care Provider, [employer]] Patient Instructions: Patient Portal & [place] Instructions Activity Restrictions/Additional Instructions: Patient was transfused 1 unit of blood here in the emergency department. Hemoccult was negative. We will try to get her a sooner appointment to see general surgery as they are planning for colonoscopy. CT scan of her abdomen and pelvis showed resolving diverticulitis. There was no abscess or perforation. Her chest x-ray today with evidence of fluid overload. Clinically she is not requiring more oxygen than her baseline and does not complain of feeling short of breath. I would recommend she increase her Lasix to 40 mg twice daily over the next 3 days. Print Language: Kinyarwanda Coding Level of Care Code ED [employer] Fwd Documented by User: Arcelia Quinn MD 05/26/25 12:54 HPI - Recheck/Abnormal Lab/Rx General: Chief Complaint: Recheck/Abnormal Lab/Rx Stated Complaint: abnormal labs - nausea Time Seen by Provider: 05/26/25 09:50 Related Data Home Medications ?Medication ?Instructions ?Recorded ?Confirmed atorvastatin 20 mg tablet (Lipitor) 20 mg PO BEDTIME 09/30/19 05/26/25 acetaminophen 325 mg tablet 325 mg PO QID Pain 08/22/20 05/08/25 (Tylenol) buspirone 10 mg tablet 10 mg PO BID 12/13/20 05/08/25 albuterol sulfate 90 mcg/actuation 2 puff inhalation BID PRN 08/21/23 05/08/25 aerosol inhaler Shortness Of Breath bisacodyl 10 mg rectal suppository 10 mg MA DAILY PRN Constipation 10/08/23 05/08/25 isosorbide mononitrate 30 mg 30 mg PO DAILY 10/08/23 05/26/25 tablet,extended release 24 hr magnesium hydroxide 400 mg/5 mL 30 ml PO DAILY PRN Constipation 10/08/23 05/08/25 oral suspension (Milk of Magnesia) sodium phosphates 19 gram-7 118 ml MA DAILY PRN Constipation 10/08/23 05/08/25 gram/118 mL enema (Fleet Enema) dicyclomine 20 mg tablet 20 mg PO BID PRN stomach discomfort 10/27/23 05/08/25 guaifenesin 100 mg/5 mL oral liquid 200 mg PO Q4H PRN Cough 10/23/24 05/08/25 loratadine 10 mg tablet 10 mg PO DAILY 10/23/24 05/26/25 ondansetron 4 mg disintegrating 4 mg PO Q4H PRN Nausea 10/23/24 05/08/25 tablet tizanidine 2 mg capsule 2 mg PO Q8H PRN Muscle Spasm 12/21/24 05/08/25 albuterol sulfate 2.5 mg/3 mL 2.5 mg inhalation BID PRN Wheezing 02/12/25 05/08/25 (0.083 %) solution for nebulization arformoterol 15 mcg/2 mL solution 15 mcg inhalation BID 02/12/25 05/08/25 for nebulization budesonide 1 mg/2 mL suspension 1 mg inhalation BID 02/12/25 05/08/25 for nebulization dulaglutide 1.5 mg/0.5 mL 1.5 mg SUBCUT Q7D 02/12/25 05/08/25 subcutaneous pen injector ([facility]) zinc oxide 1 applic topical PRN may keep at 02/12/25 05/08/25 bedside carvedilol 6.25 mg tablet 6.5 mg PO BID 05/08/25 05/08/25 duloxetine 60 mg capsule,delayed 60 mg PO DAILY 05/08/25 05/26/25 release Held on 05/10/25. Instructions: Resume on 05/16/25. insulin glargine 100 unit/mL 20 unit SUBCUT BEDTIME 05/08/25 05/08/25 subcutaneous solution (Lantus U-100 Insulin) magnesium oxide 400 mg (241.3 mg 200 mg PO BID 05/08/25 05/08/25 magnesium) tablet (MagOx) menthol 4 % topical gel (Biofreeze 1 applic topical TID PRN Pain 05/08/25 05/08/25 (menthol)) tiotropium bromide 2.5 1 inh inhalation DAILY 05/08/25 05/08/25 mcg/actuation mist for inhalation (Spiriva Respimat) levothyroxine 50 mcg tablet 50 mcg PO QAM 05/26/25 05/26/25 Previous Rx's ?Medication ?Instructions ?Recorded furosemide 40 mg tablet 40 mg PO DAILY 30 days #30 tabs 07/04/23 amlodipine 10 mg tablet 10 mg PO DAILY #60 tabs 10/10/23 hydralazine 50 mg tablet 50 mg PO TID #60 tabs 02/16/25 lisinopril 20 mg tablet 10 mg (1/2 x 20 mg) PO DAILY #30 02/16/25 tabs pantoprazole 40 mg tablet,delayed 40 mg PO DAILY #30 tabs 02/16/25 release (Protonix) ciprofloxacin HCl 500 mg tablet 500 mg PO BID #14 tabs 05/10/25 Allergies Allergy/AdvReac Type Severity Reaction Status Date / Time No Known Allergies Allergy Verified 12/21/24 08:12 [facility] PFSH: Medical History Heart failure with improved ejection fraction (HFimpEF) Bradycardia Hyperkalemia Anemia Acute diverticulitis Heart block AV third degree Obesity hypoventilation syndrome Hyperkalemia Morbid obesity Acute respiratory failure with hypoxia and hypercapnia Shortness of breath Acute kidney injury Chronic CHF (congestive heart failure) Hypokalemia Hypomagnesemia Torsades de pointes Diarrhea Takotsubo cardiomyopathy Gastritis Blood in stool Acute HFrEF (heart failure with reduced ejection fraction) HFrEF (heart failure with reduced ejection fraction) Stress-induced cardiomyopathy Diabetes Hypertension Non-ST elevation [place] (NSTEMI) History of cerebrovascular accident COPD (chronic obstructive pulmonary disease) Hypertension Depression with anxiety History of GI bleed GERD (gastroesophageal reflux disease) Diabetes CVA (cerebral vascular accident) COPD (chronic obstructive pulmonary disease) Carpal tunnel syndrome on both sides Opioid contract exists Encounter for long-term use of opiate analgesic Chronic radicular low back pain Smokeless tobacco use Low back pain Surgical History History of esophagogastroduodenoscopy (EGD) (~11/2020) History of colonoscopy (~11/2020) H/O knee surgery History of knee replacement History of lumbar surgery Also history of spinal cord stimulator, currently not functioning History of shoulder surgery Family History Other CAD (coronary artery disease) Diverticulitis Hypertension Stroke Denies family history of Anesthesia complication Bleeding disorder Social History Smoking and tobacco/nicotine status: former use of tobacco/nicotine Quit status (tobacco/nicotine): has quit using Year quit tobacco: 2012 Former quit date comment: 2ppd X 48 years Alcohol intake: never Substance/Drug Use: never Housing: Intermediate Course Vital Signs: Vital signs: Vital Signs Temperature 98.2 F 05/26/25 12:44 Pulse Rate 74 05/26/25 12:44 Respiratory Rate 17 05/26/25 12:44 Blood Pressure 127/76 05/26/25 12:44 Pulse Oximetry 95 05/26/25 12:44 Oxygen Delivery Me thod Nasal Cannula 05/26/25 11:15 Oxygen Flow Rate 3 05/26/25 11:15 MDM - Recheck/Abnormal Lab/Rx Medical Decision Making Patient here from her [facility] after her recent blood work showed a hemoglobin of 6.5. She was recently discharged from our hospital several weeks ago with a hemoglobin of 7.7 after a diverticular bleed. Hemoccult today is negative. She was complaining of abdominal pain upon arrival thus CT imaging was obtained to evaluate for worsening diverticular disease, abscess, perforation. This was essentially unremarkable. Her diverticulitis has essentially resolved. She is not febrile or hypotensive or tachycardic. Her white count is normal. CXR does appear slightly fluid overloaded. She is not requiring more oxygen. Will have the [facility] double up on her Lasix for the next 3 days. She was given a unit of blood here. Will try to have general surgery see her earlier than her currently scheduled visit. Case was discussed with Dr. Quinn who agrees with care here and decision to be discharged back to [facility]. Did go over patient with above midlevel agree with her history and physical. Patient is anemic has no signs of any GI bleeding at this time her vitals here have been normal. Will transfuse here and discharged back to [facility] Lab Data 05/26/25 10:02 05/26/25 10:02 Radiology Impressions Abdomen/Pelvis CT 05/26/25 09:58 IMPRESSION: 1. Previously described LEFT colitis or diverticulitis has essentially resolved described above 2. Trace bilateral pleural effusion with compressive atelectasis in the lung bases with edema is new compared to previous. 3. No other interval changes. 4. Stable indeterminate increased attenuation 10 mm LEFT renal lesion. This can be followed up with ultrasound on an elective basis Chest X-Ray 05/26/25 09:58 Impression: Cardiomegaly with mild pulmonary vascular congestion. Laboratory Results WBC 11.13 10^3/uL (3.29-11.43) 05/26/25 10:02 RBC 3.22 10^6/uL (3.85-5.65) L 05/26/25 10:02 Hgb 6.50 g/dL (11.27-16.99) L* 05/26/25 10:02 Hct 24.6 % (36-47) L 05/26/25 10:02 MCV 76.4 fl (85-98) L 05/26/25 10:02 MCH 20.2 pg (27-33) L 05/26/25 10:02 MCHC 26.4 g/dL (30-55) L 05/26/25 10:02 RDW 20.0 % (12.1-15.1) H 05/26/25 10:02 Plt Count 571 10^3/cmm (157-399) H 05/26/25 10:02 MPV 8.9 fL (7.4-10.4) 05/26/25 10:02 Neut % (Auto) 81.3 % 05/26/25 10:02 Lymph % (Auto) 9.2 % 05/26/25 10:02 [place] % (Auto) 7.8 % 05/26/25 10:02 Eos % (Auto) 0.8 % 05/26/25 10:02 Baso % (Auto) 0.4 % 05/26/25 10:02 Neut # (Auto) 9.04 10^3/uL (1.8-7.7) H 05/26/25 10:02 Lymph # (Auto) 1.0 10^3/uL (0.8-4.8) 05/26/25 10:02 [place] # (Auto) 0.9 10^3/uL (0.2-0.9) 05/26/25 10:02 Eos # (Auto) 0.1 10^3/uL (0.0-0.8) 05/26/25 10:02 Baso # (Auto) 0.1 10^3/uL (0.0-0.1) 05/26/25 10:02 Nucleated RBC % (auto) 0.2 % 05/26/25 10:02 Nucleated RBCs # 0.0 /100WBC 05/26/25 10:02 Sodium 141 mmol/L (136-145) 05/26/25 10:02 Potassium 4.6 mmol/L (3.5-5.1) 05/26/25 10:02 Chloride 99 mmol/L (98-107) 05/26/25 10:02 Carbon Dioxide 32 mmol/L (22-29) H 05/26/25 10:02 Anion Gap 14.6 (5-19) 05/26/25 10:02 BUN 18 mg/dL (8-23) 05/26/25 10:02 Creatinine 0.6 mg/dL (0.5-0.9) 05/26/25 10:02 GFR Calculation Not Reportable 05/26/25 10:02 Glucose 164 mg/dL (65-115) H 05/26/25 10:02 Calculated Osmolality 298 mOsm/kg (285-295) H 05/26/25 10:02 Calcium 9.3 mg/dL (8.5-10.5) 05/26/25 10:02 Total Bilirubin 0.5 mg/dL (0.15-1.2) 05/26/25 10:02 AST 7 U/L (0-32) 05/26/25 10:02 ALT 6 U/L (0-33) 05/26/25 10:02 Alkaline Phosphatase 76 U/L (35-105) 05/26/25 10:02 Total Protein 7.1 g/dL (6.6-8.7) 05/26/25 10:02 Albumin 3.7 g/dL (3.5-5.2) 05/26/25 10:02 Globulin 3.4 g/dL (1.3-4.6) 05/26/25 10:02 Lipase 19 U/L (13-60) 05/26/25 10:02 Blood Type A Negative 05/26/25 10:02 Rho(D) Type Rh negative 05/26/25 10:02 Antibody Screen Negative 05/26/25 10:02 Crossmatch See Detail 05/26/25 10:02 Discharge Plan Discharge Patient Disposition: Home Clinical Impression: Anemia Qualifiers: Anemia type: unspecified type Qualified Code(s): D64.9 - Anemia, unspecified Condition: Stable Prescriptions: No Action atorvastatin [Lipitor] 20 mg tablet 20 mg PO BEDTIME albuterol sulfate 90 mcg/actuation HFA aerosol inhaler 2 puff inhalation BID PRN (Reason: Shortness Of Breath) dicyclomine 20 mg tablet 20 mg PO BID PRN (Reason: stomach discomfort) tizanidine 2 mg capsule 2 mg PO Q8H PRN (Reason: Muscle Spasm) acetaminophen [Tylenol] 325 mg Tablet 325 mg PO QID buspirone 10 mg tablet 10 mg PO BID furosemide 40 mg Tablet 40 mg PO DAILY 30 Days Qty: 30 0RF albuterol sulfate 2.5 mg /3 mL (0.083 %) solution for nebulization 2.5 mg inhalation BID PRN (Reason: Wheezing) arformoterol 15 mcg/2 mL solution for nebulization 15 mcg INHALATION BID budesonide 1 mg/2 mL suspension for nebulization 1 mg inhalation BID zinc oxide Ointment 1 applic TOPICAL PRN Trulicity 1.5 mg/0.5 mL pen injector 1.5 mg SUBCUT Q7D Rx Instructions: hydralazine 50 mg tablet 50 mg PO TID Qty: 60 0RF lisinopril 20 mg tablet 10 mg PO DAILY Qty: 30 0RF pantoprazole [Protonix] 40 mg tablet,delayed release (DR/EC) 40 mg PO DAILY Qty: 30 0RF insulin glargine [Lantus U-100 Insulin] 100 unit/mL Solution 20 unit SUBCUT BEDTIME magnesium oxide [MagOx] 400 mg (241.3 mg magnesium) Tablet 200 mg PO BID duloxetine 60 mg capsule,delayed release(DR/EC) 60 mg PO DAILY Spiriva Respimat 2.5 mcg/actuation mist 1 inh INHALATION DAILY Biofreeze (menthol) 4 % Gel 1 applic TOPICAL TID PRN (Reason: Pain) carvedilol 6.25 mg tablet 6.5 mg PO BID ciprofloxacin HCl 500 mg tablet 500 mg PO BID Qty: 14 0RF levothyroxine 50 mcg tablet 50 mcg PO QAM isosorbide mononitrate 30 mg tablet extended release 24 hr 30 mg PO DAILY magnesium hydroxide [Milk of Magnesia] 400 mg/5 mL Suspension 30 ml PO DAILY PRN (Reason: Constipation) bisacodyl 10 mg Suppository 10 mg MA DAILY PRN (Reason: Constipation) Fleet Enema 19-7 gram/118 mL Enema 118 ml MA DAILY PRN (Reason: Constipation) amlodipine 10 mg tablet 10 mg PO DAILY Qty: 60 4RF guaifenesin 100 mg/5 mL Liquid 200 mg PO Q4H PRN (Reason: Cough) ondansetron 4 mg Tablet,Disintegrating 4 mg PO Q4H PRN (Reason: Nausea) loratadine 10 mg Tablet 10 mg PO DAILY Discharge Orders: Discharge ED (Routine); Ordered 05/26/25 Ordered By: Margaret Hernandez Referrals: Nazia Jha PA [Primary Care Provider, [employer]] Patient Instructions: Patient Portal & [place] Instructions Activity Restrictions/Additional Instructions: Patient was transfused 1 unit of blood here in the emergency department. Hemoccult was negative. We will try to get her a sooner appointment to see general surgery as they are planning for colonoscopy. CT scan of her abdomen and pelvis showed resolving diverticulitis. There was no abscess or perforation. Her chest x-ray today with evidence of fluid overload. Clinically she is not requiring more oxygen than her baseline and does not complain of feeling short of breath. I would recommend she increase her Lasix to 40 mg twice daily over the next 3 days. Print Language: Kinyarwanda Coding Level of Care Code ED [employer]ice for Lea Dinero
[2025-05-26 10:13] LABS: Hematocrit 24.6 % (36-47); Mean Corpuscular HGB Conc 26.4 g/dL (30-55); Mean Corpuscular Hemoglobin 20.2 pg (27-33); Mean Corpuscular Volume 76.4 fl (85-98); Nucleated Red Blood Cells % 0.2 %; Platelet Count 571 10^3/cmm (157-399); Red Blood Count 3.22 10^6/uL (3.85-5.65); White Blood Count 11.13 10^3/uL (3.29-11.43)
[2025-05-26 10:15] LABS: Hemoglobin 6.50 g/dL (11.27-16.99)
[2025-05-26 10:28] LABS: Alanine Aminotransferase 6 U/L (0-33); Albumin Level 3.7 g/dL (3.5-5.2); Alkaline Phosphatase 76 U/L (35-105); Anion Gap 14.6 (5-19); Aspartate Amino Transferase 7 U/L (0-32); Blood Urea Nitrogen 18 mg/dL (8-23); Calcium 9.3 mg/dL (8.5-10.5); Carbon Dioxide 32 mmol/L (22-29); Chloride 99 mmol/L (98-107); Creatinine Clr Calc Pharmacy 64.5140; Globulin 3.4 g/dL (1.3-4.6); Glucose 164 mg/dL (65-115); Lipase 19 U/L (13-60); Osmolality Calculated 298 mOsm/kg (285-295); Potassium 4.6 mmol/L (3.5-5.1); Sodium 141 mmol/L (136-145); Total Protein 7.1 g/dL (6.6-8.7)
--- NOTE | 2025-05-26 10:53 | PC.PHAR ---
Addendum entered by Ashley Lowe 05/26/25 11:00: Incomplete med list-[facility] is faxing Original Note: Pt is from [facility]
--- NOTE | 2025-05-29 07:40 | DCPLANNER ---
messaged gen surg for er f/u
== END 2025-05-26 13:27 | disposition home or self-care (01) ==
PROVIDERS: Emergency Medicine; Emergency Provider Physician Assistant; PCP Physician Assistant
DX: D64.9 Anemia, unspecified (principal); Z79.4 Long term (current) use of insulin; Z79.85 Long-term (current) use of injectable non-insulin antidiabetic drugs; J44.9 Chronic obstructive pulmonary disease, unspecified; I11.0 Hypertensive heart disease with heart failure; I50.22 Chronic systolic (congestive) heart failure; E11.9 Type 2 diabetes mellitus without complications; Z86.73 Personal history of transient ischemic attack (TIA), and cerebral infarction without residual deficits; Z87.891 Personal history of nicotine dependence
CPT/HCPCS: 36415; 36430; 71045; 74177; 80053; 83690; 85025; 86850; 86900; 86920; 99284; P9040

== ENCOUNTER 2025-05-28 10:47 | Emergency (ER) | payer MEDICARE, MEDICAID, SELFPAY ==
[2025-05-28 10:49] VITALS: BP 122/58; PULSE 84; TEMP 36.8; O2SAT 90; BMI 43.5
--- OUTSIDE RECORDS SUMMARY | 2025-05-28 10:55 | XMS_ITS | Data Portability ---
Author Organization [facility] Jennyfer, L.L.CJolie, ZORANAnthony [facility] Address [address] [facility] [address] [place] [address] Care Team Providers Care Director Business Intelligence Name Role Phone NAZIA JHA Primary Care [...] Note LastModifiedBy Organization Detail LastModifiedTime 02/11/2001/24/2025 , [facility] ardio gram No observ ation record ed. [email or web address] [facility] [address] [place], [address], 02/10/2025 11:58:45 Result Notes None recorded. Problems Name Problem SNOMED Code Status Onset Date Resolution Date Notes Provider Name and Address Organization Details Recorded Time Abdomina l pain 77140849 Completed 201902/06/2020 ABDOMINA L PAIN - Status is Inactive ; Recorded 02/06/20 3:27PM by Nazia Jha PA-C, Annotati on/Adden dum; Promoted ; acuity set as *; NAZIA JHA PA-C [address] [place], [address] , [place] [facility] 16:19:26 Aortic stenosis , non-rheu matic 147656541 Completed 201902/08/2020 AORTIC STENOSIS - Status is Inactive ; Recorded 02/08/20 10:06AM by Nazia Jha PA-C, Annotati on/Adden dum; Promoted ; acuity set as *; Not Available [facility] 3 03:12:50 Anemia 160754375 Completed 201902/08/2020 ANEMIA - Status is Resolved ; Resolved Date: 02/08/20; Recorded 02/08/20 10:01AM by Nazia Jha PA-C, Annotati on/Adden dum; Promoted ; acuity set as *; Not Available [facility] 3 03:12:58 Nausea 158271432 Completed 202005/07/2021 NAUSEA - Status is Inactive ; Recorded 05/07/20 4:32PM by Nazia Jha PA-C, Annotati on/Adden dum; Promoted ; acuity set as *; Not Available [facility] 3 03:12:50 Sleep disorder 98581978 Completed 202005/07/2021 SLEEPING DIFFICUL TIES - Status is Inactive ; Recorded 05/07/20 4:32PM by Nazia Jha PA-C, Annotati on/Adden dum; Promoted ; acuity set as *; Not Available [facility] 3 03:12:57 Hyperlip idemia 85860213 Active 2022 HYPERLIP IDEMIA; Recorded 09/26/19 6:15AM by Lissa John LPN, Office Visit; Promoted ; acuity set as *; NAZIA JHA PA-C [address] [place], [address] , [facility] 5 16:20:56 Severe obesity 28491242408 104 Active 2022 OBESITY, MORBID, BMI 40.0-49. 9; Recorded 09/26/19 23 6:15AM by Lissa John LPN, Office Visit; Promoted ; acuity set as *; Ty Gottlieb MD [address] [place], [address] , [facility] 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 5 16:20:56 Coronary atherosc lerosis 153358683 Active 2022 CAD (CORONAR Y ARTERY DISEASE) ; Recorded 09/26/19 6:15AM by Lissa John LPN, Office Visit; Promoted ; acuity set as *; NAZIA JHA PA-C [address] [place], [address] , [facility], L.L.CJolie 5 16:20:56 Hypomagn esemia 854549250 Active 2022 HYPOMAGN ESEMIA; Recorded 09/26/19 6:15AM by Lissa John LPN, Office Visit; Promoted ; acuity set as *; NAZIA JHA PA-C [address] [place], [address] , [facility], L.L.CJolie 5 16:20:56 Chronic systolic heart failure 950282581 Active 2022 CHRONIC SYSTOLIC CONGESTI VE HEART FAILURE; Recorded 09/26/19 6:15AM by Lissa John LPN, Office Visit; Promoted ; acuity set as *; Ty Gottlieb MD [address] [place], [address] , [facility] 5 08:47:01 Diarrhea 19623156 Active 2022 CHRONIC DIARRHEA ; Recorded 09/26/19 6:15AM by Lissa John LPN, Office Visit; Promoted ; acuity set as *; NAZIA JHA PA-C [address] [place], [address] , [facility] 5 16:20:56 Gastroes ophageal reflux disease 257530147 Active 2022 ACID REFLUX; Recorded 09/26/19 6:15AM by Lissa Jonh LPN, Office Visit; Promoted ; acuity set as *; NAZIA JHA PA-C [address] [place], [address] , [facility] 5 16:20:56 Chronic hypercap eric respirat ory failure 575844067 Active 2022 CHRONIC RESPIRAT ORY FAILURE WITH HYPERCAP BOOGIE; Recorded 10/02/19 1:57PM by Nazia Jha PA-C, Office Visit; Promoted ; acuity set as *; NAZIA JHA PA-C [address] [place], [address] , [facility] 5 16:20:56 Neuropat hy due to type 2 diabetes mellitus 33705729009 9106 Active 2022 NEUROPAT HY, DIABETIC ; Recorded 10/02/19 1:56PM by Nazia Jha PA-C, Office Visit; Promoted ; acuity set as *; NAZIA JHA PA-C [address] [place], [address] , [facility] 5 16:20:56 Acute exacerba tion of chronic obstruct jesus manuel pulmonar y disease 644807558 Completed 202210/01/2022 COPD WITH ACUTE EXACERBA TION - Status is Inactive ; Recorded 10/02/19 1:56PM by Nazia Jha PA-C, Annotati on/Adden dum; Promoted ; acuity set as *; LISSA JOHN [facility], [facility] 10:51:53 Chronic obstruct jesus manuel pulmonar y disease 91155337 Active 2022 NAZIA JHA PA-C [address] [place] [address], [address] [place] [address] , [facility] 16:20:56 Insomnia 568842380 Active 2022 NAZIA JHA PA-C [address] [place] [address], [address] [place] [address] , [facility] 16:20:56 Depressi ve disorder 56081916 Active 2022 NAZIA JHA PA-C [address] [place] [address], [address] [place] [address] , [facility] 16:20:56 Type 2 diabetes mellitus 43729702 Active 2022 Ty Gottlieb MD [address] [place] [address], [address] , [facility] 08:47:14 Essentia l hyperten gricelda 40171710 Active 2022 Ty Gottlieb MD [address] [place] [address], [address] [place] [address] , [facility] 08:46:51 COVID-19 239273722 Completed 202209/28/2024 NAZIA JHA PA-C [address] [place] [address], [address] [place] [address] , [facility] 5 16:20:06 Diabetes mellitus 42234596 Active 2022 [facility] 11:25:06 Hypothyr oidism 81568885 Active 2022 NAZIA JHA PA-C [address] [place], [address] , [facility] 5 16:20:56 Generali zed headache 683939640 Active 2023 NAZIA JHA PA-C [address] [place], [address] , [facility] 5 16:20:56 Osteoart hritis 536082986 Active 2023 LISSA balderas, [facility] 5 21:03:18 Chronic kidney disease stage 3B 689060918 Active 2023 NAZIA JHA PA-C [address] [place] [address], [address] , [facility] 5 16:20:56 Thrombop hlebitis 38154741 Completed 202309/28/2024 NAZIA JHA PA-C [address] [place] [address], [address] , [facility] 5 16:20:06 Acute upper respirat ory infectio n 00766080 Completed 202309/28/2024 NAZIA JHA PA-C [address] [place] [address], [address] , [facility] 5 16:20:06 Muscle spasm of cervical muscle of neck 85831486518 4 Active 2023 NAZIA JHA PA-C [address] [place] [address], [address] , [facility] 5 16:20:56 Sebaceou s cyst of skin 559117772 Completed 202309/28/2024 NAZIA JHA PA-C [address] [place] [address], [address] , [facility] 5 16:20:06 Acute respirat ory syncytia l virus bronchit is 906383536 Completed 202309/28/2024 NAZIA JHA PA-C [address] [place], [address] , [facility] 5 16:20:06 Herpes zoster 8207560 Active 2024 NAZIA JHA PA-C [address] [place] [address], [address] , [facility] 5 16:20:56 Irregula r heart beat 116468570 Active 2024 LISSA balderas, [facility] 5 10:52:27 Anxiety 48788322 Active 2024 LISSA HAALAINA null, [facility] 5 10:52:10 Moderate chronic obstruct jesus manuel pulmonar y disease 447714141 Active 2024 LISSA DORA null, [facility] 5 10:52:32 Chronic respirat ory failure 31482196 Active 2024 LISSA HAALAINA null, [facility] 5 10:52:21 Pain of left calf 15764313752 73357 Active 2024 Ty Gottlieb MD [address] [place], [address] , [facility] 08:47:17 Generali zed edema 640496900 Active 2024 LISSA DORA null, [facility] 11:56:19 Colitis 26490086 Active 2024 Ty Gottlieb MD [address] [place] [address], [address] , [facility] 08:46:26 Anemia due to blood loss 829193223 Active 2024 Ty Gottlieb MD [address] [place] [address], [address] , [facility] 08:46:41 Asthenia 56554301 Active 2024 Ty Gottlieb MD [address] [place] [address], [address] , [facility], L.L.CJolie 12:01:38 Platelet count above referenc e range 382969622 Active 2024 LISSA balderas [facility], L.L.CJolie 10:33:21 Gastroin testinal hemorrha ge 99635169 Active 2024 LISSA balderas [facility], L.L.CJolie 10:34:31 Iron deficien cy anemia 78750585 Active 2024 LISSA JOHN [facility], L.L.CJolie 10:35:04 Problem Notes None recorded. Procedures Surgical History Date Name Laterality Status Provider Name and Address Organization Details Recorded Time 02/08/20 25 echocardiography completed NAZIA JHA PA-C [address] [place] [address], [address], [facility] L.L.CJolie 02/10/2025 11:05:14 10/25/19 21 colonoscopy completed LISSA JOHN [facility], BlaireLJolieCJolie 04/23/2023 08:24:42 09/04/19 16 bone density scan completed LISSA JOHN [facility], LJolieLCindy 04/23/2023 08:24:58 Imaging Results None recorded. Procedure Notes None recorded. Medical Equipment None Reported. Allergies Allergen ID Allergen Name Allergen Category Reaction Reaction Severity Criticality Documentation Date Start Date Code Code System Note Provider Name and Address Organization Details Recorded Time 68759 metformin hydrochlo ride medicatio n diarrhea severe high 02/28/2023 18517 3 RxNorm Jaci [place] [facility], [place] 4 07:52:40 Medications Name Sig Start Date [...] elayed release daily 07/08 completed vo KM/dh; 33246; Recorded 09/26/19 23 9:12AM by Lissa John LPN (Authori zed through Nazia Jha PA-C), Office Visit; Refill Quantity : 3; Capsule; Not Available Not Available Not Available magnesium two times daily 04/23 completed Recorded 09/26/19 9:12AM by Lissa John LPN, Office Visit; Refill Quantity : 60; Tablet; Not Available Not Available Not Available acetamino phen every six hours, as needed 04/23 completed 71821; Recorded 05/07/20 7:40AM by Lissa John LPN [...] 04/23 completed take only as needed km/dh; 79874; Recorded 08/05/19 3:54PM by Lissa John LPN (i raoul through Nazia Jha PA-C), Refill Request; Refill Quantity : 90; Tablet; Not Available Not Available Not Available albuterol sulfate every six hours, as needed 04/23 completed vo KM/dh; 97476; Recorded 10/21/19 5:03PM by Lissa John LPN [...] every twelve hours 04/23 completed vo KM/dh; 99897; Recorded 09/09/19 4:26PM by Shaan Meadows (Authori zed through Nazia Jha PA-C), Office Visit; Refill Quantity : 60; Tablet; Not Available Not Available Not Available Plavix daily 04/23 completed [facility]/ /LONG; 73506; Recorded 03/03/20 4:22PM by Lissa John LPN (Authori zed through Nazia Jha PA-C), Refill Request; Refill Quantity : 30; Tablet; Not Available Not Available Not Available lisinopri l daily 04/23 completed [facility]//sw ift; 24242; Recorded 07/11/20 2:40PM by Federico santizo (Authori zed through Nazia Jha PA-C), Office Visit; Refill Quantity : 90; Tablet; Not Available Not Available Not Available Klor-Con two times daily 04/23 completed cs/smf; 04652; Recorded 07/07/20 2:41PM by Yoli Torres RN (Authori zed through Kendall Barrow DO), Refill Request; Refill Quantity : 60; Tablet; Not Available Not Available Not Available metolazon e daily 04/23 completed [facility]/; 80790; Recorded 09/09/19 4:26PM by Shaan Meadows (Authori zed through Nazia Jha PA-C), Office Visit; Refill Quantity : 15; Tablet; Not Available Not Available Not Available Sucralfat e Suspensio n two times daily 04/23 completed [facility]/; 03490; Recorded 08/12/19 11:50AM by Lissa John LPN (Authori zed through Nazia Jha PA-C), Annotati on/Adden dum; Refill Quantity : 600; Millilit er; Not Available Not Available Not Available Lantus U-100 Insulin 10units hs 02/14 completed Not Available Not Available Not Available Trazodone at bedtime 04/23 completed vo /govind /DEWAYNE; 92097; Recorded 08/05/19 23 3:54PM by Lissa John LPN (Authori raoul through Nazia Jha PA-C), Refill Request; Refill Quantity : 30; Tablet; Not Available Not Available Not Available cephalexi n 750 mg capsule TAKE 1 CAPSULE BY MOUTH THREE TIMES DAILY 04/23 completed Not Available Not Available Not Available Januvia 50 mg tablet daily 04/23 completed vo ALY/govind /pushpa; 00782; Recorded 11/06/19 22 7:42AM by Lissa John [...] Available Anoro Ellipta daily 04/23 completed /govind; 69029; Recorded 10/21/19 23 5:03PM by Lissa John [...] Updated DateTime 5 154.94 cm 41.9 kg/m2 747406. 51 g 94 % 94 % 91 /min 20 /min 97.4 [degF] 136/74 mm[Hg] LISSA FERGUSONHOUSTON [facility], L.L.CJolie 5 10:08:15 Date Recorded Body height Body mass index (BMI) Body weight Body temperature Respiratory rate Heart rate Oxygen saturation Oxygen saturation in Arterial blood by Pulse oximetry Systolic And Diastolic Provider Name and Address Organization Details Last Updated DateTime 5 154.94 cm 42.9 kg/m2 454694. 47 g 97.1 [degF] 20 /min 75 /min 97 % 97 % 140/62 mm[Hg] [facility] 5 12:38:44 Date Recorded Body height Body mass index (BMI) Body weight Heart rate Respiratory rate Body temperature Systolic And Diastolic Provider Name and Address Organization Details Last Updated DateTime 5 154.94 cm 44 kg/m2 353041. 02 g 73 /min 20 /min 97 [degF] 142/62 mm[Hg] [facility] 5 11:52:43 Date Recorded Body height Body mass index (BMI) Body weight Body temperature Respiratory rate Heart rate Systolic And Diastolic Provider Name and Address Organization Details Last Updated DateTime 5 154.94 cm 42.3 kg/m2 520781. 69 g 97.2 [degF] 18 /min 76 /min 138/68 mm[Hg] ALIYAH [facility], L.L.CJolie 5 10:31:50 Date Recorded Body height Body mass index (BMI) Body weight Oxygen saturation Oxygen saturation in Arterial blood by Pulse oximetry Heart rate Respiratory rate Body temperature Systolic And Diastolic Provider Name and Address Organization Details Last Updated DateTime 5 154.94 cm 43.1 kg/m2 232402. 06 g 99 % 99 % 72 /min 20 /min 97.5 [degF] 118/62 mm[Hg] LISSA JOHN [facility] 5 10:30:56 Social History Question Answer Notes LastModified by Associated Content ion Details LastModified Time Tobacco Smoking Status Never Smoker NAZIA JHA PA-C [address] [place], [address], [facility] 04/23/2023 15:25:00 What Was The Date Of Your Most Recent Tobacco Screening? 04/23/2023 [email or web address] Information not available 04/23/2023 Has Tobacco Cessation Counseling Been Provided? Yes [email or web address] Information not available 04/23/2023 On What Date Was Tobacco Cessation Counseling Provided? 04/22/2023 [email or web address] Information not available 04/23/2023 How Many Years Have You Used Smokeless Tobacco? 50 [email or web address] Information not available 04/23/2023 Sex: Unknown Functional Status Question Answer Note LastModified by [employer] Details LastModified Time Do you or have you ever used any other forms of tobacco or nicotine? Yes [email or web address] Information not available 04/23/2023 What is your level of alcohol consumption? None [email or web address] Information not available 04/23/2023 Do you or have you ever used smokeless tobacco? Current snuff user Information not available 04/23/2023 Do you or have you ever used e-cigarettes or vape? Never used electronic cigarettes [email or web address] Information not available 04/23/2023 Mental Status None [...] zoster recombinant 0 completed NAZIA JHA PA-C [address] [place], [address], [facility], L.LJolieC. 04/23/2023 12:56:21 Influenza, high-dose, quadrivalent, PF 0 completed NAZIA JHA PA-C [address] [place], [address], [facility], LJolieLJolieC. 04/23/2023 12:56:21 Pneumococcal conjugate PCV 13 5 completed NAZIA JHA PA-C [address] [place], [address], [facility], BlaireLJolieCJolie 04/23/2023 12:56:21 Influenza, adjuvanted, quadrivalent, PF 3 completed NAZIA JHA PA-C [address] [place], [address], [facility], LJolieLJolieC. 04/23/2023 15:22:00 zoster recombinant 0 completed NAZIA JHA PA-C [address] [place], [address], [facility], LJolieLJolieC. 04/23/2023 12:56:21 Tdap 0 completed NAZIA JHA PA-C [address] [place], [address], [facility], LJolieLJolieC. 04/23/2023 12:56:21 Tdap 6 completed Not Available [facility] 09/23/2023 10:50:53 Influenza, split virus, trivalent, preservative 3 completed Not Available [facility] 09/23/2023 10:50:53 pneumococcal polysaccharide PPV23 3 completed Not Available [facility] 09/23/2023 10:50:53 Influenza, split virus, trivalent, preservative 6 completed Not Available [facility] 09/23/2023 10:50:53 Past Encounters Encounter ID Performer Location Encounter Start Date Encounter Closed Date Diagnosis/Indication Diagnosis SNOMED-CT Code Diagnosis ICD10 Code Diagnosis IMO Codes Diagnosis Note [id number] NAZIA JHA PA-C [facility] [address] [place] [phone] 04/23/2023 11:32:36 04/23/2023 16:04:22 Dry eyes 417004790 H04.121 Chronic ob structive pulmonary disease 87459785 J44.9 Needs infl uenza immunization 052737049 Z28.39 Chronic diarrhea 4904755 09 K52.9 Chronic sy stolic heart failure 808723676 I50.22 Hyperglycemia 60213151 R 73.9 Adult heal th examination 925510206 Z00.00 [id number] NAZIA JHA PA-C [facility] ([facility]) [address] [place] [id number] 07/08/2023 12:48:03 07/27/2023 08:17:17 Diabetes mellitus 98315102 E11.9 discharge records and meds reviewed. labs and vitals reviewed. Type 2 [place] betes mellitus 73432725 E11.9 d/c humalog start lantus 10units at hs Essential hypertension 54200451 I10 COVID-19 425353430 U07.1 Acute resp iratory failure 48618924 J96.00 [id number] Ty Gottlieb MD [facility] ([facility]) [address] [place] [id number] 07/15/2023 09:21:48 07/15/2023 14:13:24 Need for personal care assistance [id number] 6468725 Z74.1 Lives in fci 16 8350622 Z76.89 Chronic hy percapnic respiratory failure 824687943 J96.12 Chronic sy stolic heart failure 958032195 I50.22 Coronary atherosclerosis 440019112 I25.10 Diabetes mellitus 983563 09 E11.9 recent A1c was 7.3. Hypertensive disorder 38 297152 I10 Hypothyroidism 45514438 E03.9 [id number] Ty Gottlieb MD [facility] ([facility]) [address] [place] [id number] 08/12/2023 07:45:19 08/16/2023 20:52:55 Need for personal care assistance [id number] 9222881 Z74.1 Lives in fci 16 1557903 Z76.89 Chronic hy percapnic respiratory failure 833211082 J96.12 Chronic ob structive pulmonary disease 31092734 J44.9 Chronic sy stolic heart failure 508531723 I50.22 stable at present Diabetes mellitus 325653 09 E11.9 recent A1c was 7.3. Essential hypertension 01461841 I10 Headache 40408989 R51.9 [id number] Ty Gottlieb MD [facility] ([facility]) [address] [place], [place] [id number] 5 09/16/2023 07:48:29 09/16/2023 18:30:41 Need for personal care assistance [id number] 8502167 Z74.1 Pt. Not seen today Lives in fci 16 1865885 Z76.89 [id number] Ty Gottlieb MD [facility] ([facility]) [address] [place] [address] 5 09/17/2023 07:51:53 09/21/2023 09:35:34 Need for personal care assistance [id number] 4822313 Z74.1 Lives in fci 16 9462623 Z76.89 Neuropathy due to type 2 diabetes mellitus 8742637141 01068 E11.40 Severe obesity 077711325 1 9104 E66.01 Type 2 [place] betes mellitus 15904186 E11.9 Abdominal pain 81910070 R10.9 possible constipati on with loose stools or gastropare sis. KUB xray was ordered. [id number] NAZIA JHA PA-C [facility] ([facility]) [address] [place] [id number] 5 09/23/2023 10:50:46 10/10/2023 19:12:48 Diabetes mellitus 03615898 E11.9 CBC/CMP/A1 C Q 3 MONTHS TSH AND LIPIDS Q 6 MONTHS Headache 90142264 R51.9 NICOTINE PATCH 21MG X 4 WEEKS 14MG QD X 2 WEEKS AND 7MG X 2 WEEKS [id number] NAZIA JHA PA-C [facility] ([facility]) [address] [place] [id number] 5 09/30/2023 12:10:47 10/10/2023 22:03:33 Hyperkalemia 28288814 E87.5 d/c chlorthali done and tizanidine ,BMP one weekdecrea se mag 200mg qd, Headache 30845344 R51.9 pt thinks nicotiene patch is making POWER worse. d/c nicotine patch [id number] NAZIA JHA PA-C [facility] ([facility]) [address] [place] [id number] 5 10/07/2023 10:31:49 10/11/2023 20:18:42 Generalized headache 247767179 R51.9 pt/ot biofreeze, tramadol 50mg po qd prn Diabetic p eripheral neuropathy 387873378 E11.40 CCA form filled out during today's office visit Type 2 [place] betes mellitus 40362297 E11.69 Body mass index 40+ - severely obese 974056632 Z68.41 Coronary arteriosclerosis 29734719 I25.10 Essential hypertension 62925947 I10 Chronic ob structive pulmonary disease 75178797 J44.9 trelegy Abnormal gait 38652235 R 26.2 Dependence on enabling machine or device 297707450 Z99.89 Impaired mobility 733120 05 Z74.09 [id number] NAZIA JHA PA-C [facility] ([facility]) [address] [place] [id number] 5 10/21/2023 10:44:31 11/09/2023 09:46:35 Chronic kidney disease stage 3B 847067657 N18.32 Hyperkalemia 77958392 E8 7.5 cbc/bmp/ma g Thrombophlebitis 5416273 1 I80.9 right elbow wound care and silvaddene cream. Wound care team will start seeing her next week. Hospital i npatient stay within past 30 days 6034696852 106 Z76.89 [id number] NAZIA JHA PA-C [facility] ([facility] [address] [place] [id number] 5 10/28/2023 15:29:13 11/13/2023 17:13:59 Diabetes mellitus 05119354 E11.9 cbg bid Headache 74764159 R51.9 Hypomagnesemia 081983310 E83.42 vitals every day Dysphagia 77223657 R13.[address]/pt/bmp/ mg tomorrow [id number] Ty Gottlieb MD [facility] [address] [place] [id number] 5 11/04/2023 07:56:22 11/04/2023 18:02:13 Need for personal care assistance [id number] 4390462 Z74.1 Lives in fci 16 2737668 Z76.89 Depressive disorder 3548 9007 F32.A Diabetes mellitus 166034 09 E11.9 recent A1c was 7.3. Essential hypertension 00049277 I10 Peripheral circulatory disorder due to type 2 diabetes mellitus 913506609 E11.59 Pain of ri ght shoulder joint 2394599937 4287974 M25.511 Unsure if fractured or just arthritic and spasm. Will check xray. [id number] NAZIA HJA PA-C [facility] ([facility] [address] [place] [address] [id number] 5 11/11/2023 13:21:29 11/27/2023 14:34:29 Congestive heart failure 81235267 I50.9 LISINOPRIL 10MG QD, COREG 3.125MG BID MG AND BMPrestart meds that were stoppd due to abnormal K at last hospitaliz ation [id number] Ty Gottlieb MD [facility] [address] [place] [id number] 5 01/13/2024 09:12:41 01/13/2024 17:07:01 Need for personal care assistance [id number] 9295139 Z74.1 Lives in fci 16 8281185 Z76.89 Chronic hy percapnic respiratory failure 123066060 J96.12 Chronic ki dney disease stage 3B 798929574 N18.32 Chronic ob structive pulmonary disease 66606767 J44.9 Essential hypertension 51101948 I10 [id number] NAZIA JHA PA-C [facility] ([facility]) [address] [place] [address] [phone] 5 01/20/2024 13:35:09 02/08/2024 07:06:36 Acute upper respiratory infection 37194095 J06.9 doxycyclin e 100mg bid x 7 dayspromet hazine dm 1 tsp q 6 hours prn x 7 daysMOnito r and report any decline in condition [id number] Ty Gottlieb MD [facility] ([facility]) [address] [place] [address] [phone] 5 03/23/2024 08:09:18 03/28/2024 11:24:38 Muscle spasm of cervical muscle of neck 1103945091 04 M62.838 Will get a PT eval and treat order for her neck pain and spasm. Hypertensive disorder 38 530457 I10 Headache 01505910 R51.9 Need for p ersonal care assistance 0790014196 1527401 Z74.1 Lives in fci 16 1567048 Z76.89 [id number] NAZIA JHA PA-C [facility] ([facility]) [address] [place] [address] [phone] 5 04/20/2024 11:55:49 05/01/2024 21:49:40 Sebaceous cyst of skin 261372208 L72.3 I AND D NEXT WEEK if not improved. [id number] Ty Gottlieb MD [facility] ([facility]) [address] [place] [address] [phone] 5 05/04/2024 11:40:31 05/09/2024 11:55:46 Need for personal care assistance [id number] 8567690 Z74.1 Lives in fci 16 5871517 Z76.89 Chronic ki dney disease stage 3B 045140429 N18.32 Diabetes mellitus 535009 09 E11.9 Essential hypertension 64500172 I10 Muscle spa sm of cervical muscle of neck 5096260323 04 M62.838 Continue present management . Osteoarthritis 057329356 M19.90 Chronic ob structive pulmonary disease 63934002 J44.9 stable. [id number] NAZIA JHA PA-C [facility] ([facility]) [address] [place] [address] [phone] 5 05/11/2024 12:20:50 06/05/2024 22:17:10 Diabetes mellitus 97581748 E11.9 CMP/MG/A1C TRULICITY .75MG SC WEEKLY Essential hypertension 42979259 I10 LISINOPRIL 20MG QD, COREG 6.25MG BID Chronic ob structive pulmonary disease 10209010 J44.9 trelegy [id number] NAZIA JHA PA-C [facility] ([facility]) [address] [place] [address] [phone] 5 07/06/2024 12:08:59 07/31/2024 07:56:21 Neck pain 36313540 M54.2 PT,CYCLOBE NZAPRINE 5MG 1 PO QD PRNshe already gets Tramadol routinely. [id number] Ty Gottlieb MD [facility] ([facility]) [address] [place] [address] [phone] 5 07/13/2024 08:03:48 07/15/2024 08:09:54 Need for personal care assistance [id number] 8917070 Z74.1 Lives in fci 16 6747204 Z76.89 Chronic ki dney disease stage 3B 708945570 N18.32 Chronic ob structive pulmonary disease 23813370 J44.9 stable. Essential hypertension 35546743 I10 Headache 04768553 R51.9 chronic Peripheral circulatory disorder due to type 2 diabetes mellitus 439367902 E11.59 [id number] NAZIA JHA PA-C [facility] ([facility]) [address] [place] [address] [phone] 5 07/20/2024 10:37:27 08/16/2024 08:15:53 Chronic obstructive pulmonary disease 97473037 J44.9 prednisone 40mg x 5 days, duo nebs qid x 7 days then back to bid. Acute resp iratory syncytial virus bronchitis 415367394 J20.5 monitor. ER records reviewed. notify MD or send ER if any s/s of respirator y decline [id number] NAZIA JHA PA-C [facility] ([facility]) [address] [place] [address] [phone] 5 08/10/2024 10:33:56 08/26/2024 16:10:02 Herpes zoster 1810475 B02.9 valcyclovi r 1000mg tid [id number] Ty Gottlieb MD [facility] ([facility]) [address] [place] [address] [phone] 5 09/14/2024 09:24:12 09/16/2024 07:26:55 Need for personal care assistance [id number] 1281905 Z74.1 Lives in fci 16 5001090 Z76.89 Acute resp iratory failure 26209044 J96.00 greatly imoroved. Chronic ki dney disease stage 3B 000002935 N18.32 Chronic ob structive pulmonary disease 88435189 J44.9 stable. Recent RSV, doing better now. [id number] NAZIA JHA PA-C [facility] ([facility]) [address] [place] [address] [phone] 5 09/28/2024 10:42:33 09/28/2024 16:26:45 Adult health examination 329476130 Z00.00 H&P pt labs and meds and vitals are reviewed. Her BP and A1C and lipid are all at goalShe is stable Diabetes mellitus 813644 09 E11.9 A1C 6.3 Neck pain 44475917 M54.2 TRAZADONE 50MG AT HS PRN X 14 DAYS Hyperkalemia 41539441 E8 7.5 REPEAT K+ 5.4 IN 2 WEEKS WITH MG Chronic sy stolic heart failure 252448788 I50.22 Chronic ob structive pulmonary disease 94619637 J44.9 Chronic ki dney disease stage 3B 535741850 N18.32 Chronic hy percapnic respiratory failure 694116184 J96.12 Coronary atherosclerosis 822053306 I25.10 Depressive disorder 3548 9007 F32.A Essential hypertension 90954505 I10 LISINOPRIL 20MG QD, COREG 6.25MG BID Hyperlipidemia 69186152 E78.5 Hypothyroidism 89171705 E03.9 Insomnia 551395207 G47.0 0 Neuropathy due to type 2 diabetes mellitus 3685465682 21937 E11.40 Severe obesity 123491382 1 9104 E66.01 Type 2 [place] mellitus 03649404 E11.69 Body mass index 40+ - severely obese 069123073 Z68.42 [id number] NAZIA JHA PA-C [facility] ([facility]) [address] [place] [address] [phone] 5 10/26/2024 10:59:11 10/26/2024 16:46:46 Pneumonia 691176174 J18.9 ON LEVAQUIN Post-disch arge follow-up 289677728 Z09 med records reviewed and meds reconciled . Irregular heart beat 361 354856 R00.8 CBC/BMP/MA G/ EKG / 3 day HOLTERD/C TRAZODONE AND CYCLOBENZA MANNIE Chronic ob structive pulmonary disease 26890110 J44.9 Difficulty walking 05308 2003 R26.2 CCA form filled out during today's office visit Impaired mobility 998183 05 Z74.09 Dependence on wheel chair 437528897 Z99.3 Long-term oxygen therapy 291195726 Z99.81 Mood disorder 28043457 F 33.2 [id number] NAZIA JHA PA-C [facility] ([facility]) [address] [place] [address] [phone] 5 11/02/2024 10:49:13 11/05/2024 06:20:38 Acute kidney injury 73106174 N17.9 cr improved 1.86 to 1.8 increase in k+ baseline is .8cbc/bmp/ mg in 1 week [id number] Ty Gottlieb MD [facility] ([facility]) [address] [place] [address] [phone] 5 11/16/2024 08:13:35 11/16/2024 23:01:47 Chronic obstructive pulmonary disease 23533592 J44.9 stable. Will add BID albuterol nebulizers for now with QID prn. Chronic sy stolic heart failure 748860623 I50.22 stable at present Diabetes mellitus 195666 09 E11.9 Essential hypertension 72253715 I10 Muscle spa sm of cervical muscle of neck 3609503257 04 M62.838 Continue present management . Osteoarthritis 968837937 M19.90 [facility] [phone] 3407884 Z74.1 Lives in fci 16 5627885 Z76.89 [id number] NAZIA JHA PA-C [facility] ([facility]) [address] [place] [address] [phone] 5 12/07/2024 10:57:36 12/23/2024 16:57:33 Anxiety 80195763 F41.9 77521 CYMBALTA 60MG QD Pt always wants more meds to sleep. last time I added tranzadone she had acute delirium and ended up in the hospital. Diabetes mellitus 069909 09 E11.9 INCREASE TRULICITY 1.5MG Q WEEKLY Pain 21329015 R52 918689 TIZANADINE 2MG Q 8 HOURS PRN [id number] NAZIA JHA PA-C [facility] ([facility]) [address] [place] [address] [phone] 5 12/28/2024 10:37:08 01/09/2025 10:24:16 Acute exacerbation of chronic obstructive pulmonary disease 551861461 J44.1 595473 doxy 100mg po bid x 7 d and prednisone 40 mg po qd x 5dshe has neb tx tid already.mo nitor for worsening s/s of respirator y distress [id number] Ty Gottlieb MD [facility] ([facility]) [address] [place] [address] [phone] 5 01/11/2025 08:38:17 01/13/2025 09:16:55 Lives in fci 530451210 Z78.9 [id number] Need for p [facility] assistance [phone] 4090552 Z74.1 5309854 Chronic ki dney disease stage 3B 148492551 N18.32 Chronic hy percapnic respiratory failure 522803943 J96.12 Chronic sy stolic heart failure 672145562 I50.22 stable at present Coronary atherosclerosis 934749439 I25.10 Diabetes mellitus 217347 09 E11.9 Essential hypertension 96039901 I10 [id number] NAZIA JHA PA-C [facility] ([facility]) [address] [place] [address] [phone] 5 02/08/2025 10:24:56 02/28/2025 14:46:20 Moderate chronic obstructive pulmonary disease 139092489 J44.9 780755 prednisone 40mg qd x 5 days,d/c trelegy start budosenide 1mg bid per neb and formotorol 15mcg bid pr neb, yulperi 175mg qd per neb Diabetes mellitus 995361 09 E11.9 93090 Continue to monitor sugars and A1C . ON trulicity. [id number] NAZIA JHA PA-C [facility] ([facility]) [address] [place] [address] [phone] 5 02/22/2025 10:01:41 03/01/2025 17:41:07 Chronic respiratory failure 56840036 J96.10 9103780 Bilateral pneumonia 4076 53360 J18.9 422562085 [facility] U[facility] AND PREDNISONE NOW dooing great. Post-disch arge follow-up 680622987 Z09 725465 med records reviewed and meds reconciled . [id number] Ty Gottlieb MD [facility] ([facility]) [address] [place] [address] [phone] 5 03/08/2025 12:13:40 03/08/2025 16:05:03 Need for personal care assistance [phone] 7765830 Z74.1 4126050 Lives in fci 16 3987923 Z78.9 7167318 Essential hypertension 11161640 I10 Chronic sy stolic heart failure 177484991 I50.22 stable at present Chronic ob structive pulmonary disease 97055468 J44.9 Will check CXR due to left chest pain and recent hospitaliz ation from COPD/CHF exacerbati on. Pain of left calf 410172 3268 449892 M79.662 [id number] With edema and recent hospitaliz ation. WIll check venous doppler to ensure no DVT. [id number] NAZIA JHA PA-C [facility] ([facility]) [address] [place] [address] [phone] 5 03/15/2025 10:55:06 03/21/2025 11:39:57 Moderate chronic obstructive pulmonary disease 457830676 J44.9 [id number] D/C YULPERI (not covered by insurance) START SPIRIVA 1 PUFFQD Generalized edema 450190 008 R60.1 31078 INCREASSE LASIX 40MG BID [id number] Ty Gottlieb MD [facility] ([facility]) [address] [place] [address] [phone] 5 05/17/2025 09:05:03 05/17/2025 12:36:58 Need for personal care assistance [id number] 3151048 Z74.1 7344695 Lives in fci 16 0296909 Z78.9 7870873 Colitis 85108187 K52.9 583082 continue antibiotic s till gone. Will get reevaluati on by surgeon in 6 weeks. Anemia due to blood loss 659049315 D50.0 132483 will recheck CBC to monitor. She has had Elialie held pending reevaluati on of hgb. Essential hypertension 17436421 I10 Chronic sy stolic heart failure 313465909 I50.22 stable at present Type 2 [place] mellitus 20202358 E11.69 Severe obesity 124929518 1 9104 E66.01 Asthenia 81962290 R53.1 57150 Will try some PT for strengthen ing [...] Diggs Member ID Guarantor Name 05/17/2025 [place] [facility]) Lauren Jose [id number] Lauren Jose 05/24/2025 1 [facility] (MEDICARE REPLACEMENT/A DVANTAGE - PPO) [id number] Lauren Jose [id number] Lauren Jose 05/17/2025 2 [place] Lauren Jose [id number] Lauren Jose Notes Date Note Type Note [...] states she feels great. Ty Gottlieb MD [address] [place] [address], [phone], [facility] 02/27/2025 09:30:17 5 text/html Patient complains of some left upper chest wall pain worse with cough. She was recently hospitilized with bronchitis/COPD exacerbation. She also complains of some swelling and pain in left lower leg. No increased dyspnea at this time. Ty Gottlieb MD [address] [place] [address], [phone], [facility] 03/08/2025 15:00:09 5 text/html COPDReported by PatientHPI:For onset/timing, patient reportsmultiple times per day. For duration, patient reportschronicandconst ant. For severity, patient reportsmoderate. For alleviating factors, patient reportsrelieved with restandrelieved with oxygen. increase in her edema and 10 lb wt gain since she has been back from the hospital 3 weeks ago.More SOB and wheezing, pulmonary congestion Ty Gottlieb MD [address] [place] [address], [phone], [facility] 03/17/2025 15:18:41 5 text/html Recent treatment for colitis or diverticulitis with acute blood loss anemia also. She was admitted to the hospital and discharged with antibiotics. She is feeling better but still some pain. She would like to be able to walk more as she has some swelling. Ty Gottlieb MD [address] [place] [address], [phone], [facility] 05/17/2025 12:02:46 5 text/html AnemiaReported by PatientHPIFor context, patient reportsprevious hemoglobin:andprevious hematocrit:. For duration, patient reportsconstant. For timing, patient reportsgradual. Not Available Not Available Not Available OBGyn Episode No OBEpisode recorded.
--- OUTSIDE RECORDS SUMMARY | 2025-05-28 10:55 | XMS_ITS | Patient Health Record ---
Author Organization [facility] Address [address] [place] [address] Support Name Relationship Address Phone Lauren Jose Guarantor Unknown Unavailable Reason For Referral No Information Plan Of Treatment No Information
--- NOTE | 2025-05-28 10:58 | W.ED.ABDPA2 ---
HPI - Abdominal Pain General: Chief Complaint: Abdominal Pain Stated Complaint: abd pain Time Seen by Provider: 05/28/25 10:49 History of Present Illness: Patient is a 79-year-old female that presents to the emergency room with right and left lower quadrant abdominal pain, nausea with some emesis x 3 days. She resides at [facility], per EMS report, patient has received Zofran nearly every 4 hours for the last 2 days. skilled nursing was attempting to do GI workup outpatient. Patient states she has not had any nausea or vomiting today. She has not had a change in her stool. She states she has stupid nurses at the residential. She states she has abdominal pain, that is ongoing. Patient had a CT of her abdomen pelvis on 05/26, and workup, and packed red blood cells x 1. CT 05/28: Abdomen/Pelvis CT 05/26/25 09:58 IMPRESSION: 1. Previously described LEFT colitis or diverticulitis has essentially resolved described above 2. Trace bilateral pleural effusion with compressive atelectasis in the lung bases with edema is new compared to previous. 3. No other interval changes. 4. Stable indeterminate increased attenuation 10 mm LEFT renal lesion. This can be followed up with ultrasound on an elective basis Associated Symptoms: Reports nausea and vomiting (none today); Denies chills, constipation, diarrhea, fever(s), hematuria and melena Related Data Home Medications ?Medication ?Instructions ?Recorded ?Confirmed atorvastatin 20 mg tablet (Lipitor) 20 mg PO BEDTIME 09/30/19 05/26/25 acetaminophen 325 mg tablet 325 mg PO QID Pain 08/22/20 05/08/25 (Tylenol) buspirone 10 mg tablet 10 mg PO BID 12/13/20 05/08/25 albuterol sulfate 90 mcg/actuation 2 puff inhalation BID PRN 08/21/23 05/08/25 aerosol inhaler Shortness Of Breath bisacodyl 10 mg rectal suppository 10 mg WI DAILY PRN Constipation 10/08/23 05/08/25 isosorbide mononitrate 30 mg 30 mg PO DAILY 10/08/23 05/26/25 tablet,extended release 24 hr magnesium hydroxide 400 mg/5 mL 30 ml PO DAILY PRN Constipation 10/08/23 05/08/25 oral suspension (Milk of Magnesia) sodium phosphates 19 gram-7 118 ml WI DAILY PRN Constipation 10/08/23 05/08/25 gram/118 mL enema (Fleet Enema) dicyclomine 20 mg tablet 20 mg PO BID PRN stomach discomfort 10/27/23 05/08/25 guaifenesin 100 mg/5 mL oral liquid 200 mg PO Q4H PRN Cough 10/23/24 05/08/25 loratadine 10 mg tablet 10 mg PO DAILY 10/23/24 05/26/25 ondansetron 4 mg disintegrating 4 mg PO Q4H PRN Nausea 10/23/24 05/08/25 tablet tizanidine 2 mg capsule 2 mg PO Q8H PRN Muscle Spasm 12/21/24 05/08/25 albuterol sulfate 2.5 mg/3 mL 2.5 mg inhalation BID PRN Wheezing 02/12/25 05/08/25 (0.083 %) solution for nebulization arformoterol 15 mcg/2 mL solution 15 mcg inhalation BID 02/12/25 05/08/25 for nebulization budesonide 1 mg/2 mL suspension 1 mg inhalation BID 02/12/25 05/08/25 for nebulization dulaglutide 1.5 mg/0.5 mL 1.5 mg SUBCUT Q7D 02/12/25 05/08/25 subcutaneous pen injector (Trulicity) zinc oxide 1 applic topical PRN may keep at 02/12/25 05/08/25 bedside carvedilol 6.25 mg tablet 6.5 mg PO BID 05/08/25 05/08/25 duloxetine 60 mg capsule,delayed 60 mg PO DAILY 05/08/25 05/26/25 release Held on 05/10/25. Instructions: Resume on 05/16/25. insulin glargine 100 unit/mL 20 unit SUBCUT BEDTIME 05/08/25 05/08/25 subcutaneous solution (Lantus U-100 Insulin) magnesium oxide 400 mg (241.3 mg 200 mg PO BID 05/08/25 05/08/25 magnesium) tablet (MagOx) menthol 4 % topical gel (Biofreeze 1 applic topical TID PRN Pain 05/08/25 05/08/25 (menthol)) tiotropium bromide 2.5 1 inh inhalation DAILY 10/06/25 10/06/25 mcg/actuation mist for inhalation (Spiriva Respimat) levothyroxine 50 mcg tablet 50 mcg PO QAM 05/26/25 05/26/25 Previous Rx's ?Medication ?Instructions ?Recorded furosemide 40 mg tablet 40 mg PO DAILY 30 days #30 tabs 07/04/23 amlodipine 10 mg tablet 10 mg PO DAILY #60 tabs 10/10/23 hydralazine 50 mg tablet 50 mg PO TID #60 tabs 02/16/25 lisinopril 20 mg tablet 10 mg (1/2 x 20 mg) PO DAILY #30 02/16/25 tabs pantoprazole 40 mg tablet,delayed 40 mg PO DAILY #30 tabs 02/16/25 release (Protonix) ciprofloxacin HCl 500 mg tablet 500 mg PO BID #14 tabs 05/10/25 Allergies Allergy/AdvReac Type Severity Reaction Status Date / Time No Known Allergies Allergy Verified 12/21/24 08:12 Review of Systems Const: Denies: fever(s), chills, body aches or malaise ENMT: Denies: throat pain Card: Denies: chest pain, edema, pre-syncope or dyspnea on exertion Resp: Reports: non-productive cough (Chronic); Denies: dyspnea, productive cough, change in phlegm color or hemoptysis GI: Reports: abdominal pain, nausea and vomiting (none today); Denies: diarrhea, constipation or melena : Denies: flank pain, urinary frequency or hematuria Musc: Denies: back pain, joint swelling or joint redness Skin/Breast: Denies: rash or new lesions Neuro: Denies: headache(s) or confusion PFSH ED PFSH: Medical History (Updated 05/28/25 @ 11:40 by AURE Freeman) Heart failure with improved ejection fraction (HFimpEF) Bradycardia Hyperkalemia Anemia Acute diverticulitis Heart block AV third degree Obesity hypoventilation syndrome Hyperkalemia Morbid obesity Acute respiratory failure with hypoxia and hypercapnia Shortness of breath Acute kidney injury Chronic CHF (congestive heart failure) Hypokalemia Hypomagnesemia Torsades de pointes Diarrhea Takotsubo cardiomyopathy Gastritis Blood in stool Acute HFrEF (heart failure with reduced ejection fraction) HFrEF (heart failure with reduced ejection fraction) Stress-induced cardiomyopathy Diabetes Hypertension Non-ST elevation RI (NSTEMI) History of cerebrovascular accident COPD (chronic obstructive pulmonary disease) Hypertension Depression with anxiety History of GI bleed GERD (gastroesophageal reflux disease) Diabetes CVA (cerebral vascular accident) COPD (chronic obstructive pulmonary disease) Carpal tunnel syndrome on both sides Opioid contract exists Encounter for long-term use of opiate analgesic Chronic radicular low back pain Smokeless tobacco use Low back pain Surgical History History of esophagogastroduodenoscopy (EGD) (~11/2020) History of colonoscopy (~11/2020) H/O knee surgery History of knee replacement History of lumbar surgery Also history of spinal cord stimulator, currently not functioning History of shoulder surgery Family History Other CAD (coronary artery disease) Diverticulitis Hypertension Stroke Denies family history of Anesthesia complication Bleeding disorder Social History Smoking and tobacco/nicotine status: former use of tobacco/nicotine Quit status (tobacco/nicotine): has quit using Year quit tobacco: 2012 Former quit date comment: 2ppd X 48 years Alcohol intake: never Substance/Drug Use: never Housing: [facility] Physical Exam Const: COMMON NORMALS: no acute distress, average body habitus, patient oriented x3, no limitations, healthy appearing and alert HENMT: COMMON NORMALS: normocephalic and atraumatic HEAD & SCALP: normocephalic and atraumatic Resp: COMMON NORMALS: normal respiratory effort, No retractions, No use of accessory muscles, clear to auscultation bilaterally and percussion normal AUSCULTATION: clear to auscultation bilaterally PERCUSSION: percussion normal Cardio: COMMON NORMALS: regular rate and Peripheral pulses 2+ throughout RATE: regular rate PERIPHERAL PULSES: Peripheral pulses 2+ throughout OTHER: Irregularly irregular rhythm GI: COMMON NORMALS: Normal to inspection, nondistended, normoactive bowel sounds present, Soft to palpation, non-tender, No hepatosplenomegaly present, no masses and no bruits PALPATION: Yes Soft to palpation and Yes No hepatosplenomegaly present Extremity: COMMON NORMALS: normal to inspection, full ROM and capillary refill normal Neuro: COMMON NORMALS: patient oriented x3 SENSORIUM/ORIENTATION: Yes alert Course Vital Signs: Vital signs: Vital Signs Temperature 98.3 F 05/28/25 10:49 Pulse Rate 78 05/28/25 12:22 Respiratory Rate 24 H 05/28/25 12:22 Blood Pressure 140/81 05/28/25 12:22 Pulse Oximetry 93 05/28/25 12:22 Oxygen Delivery Me thod Nasal Cannula 05/28/25 10:49 Oxygen Flow Rate 3 05/28/25 10:49 MDM - Abdominal Pain Medical Decision Making Patient is 79-year-old female returns back to the emergency room with right and left lower quadrant pain with known diverticulitis, awaiting colonoscopy next month. She has been admitted for this issue and transfused 2 days ago for hemoglobin of 6.5. She is well had new onset atrial fibrillation. She does not have known ischemic disease. Current hemoglobin is 7.3 is noted. Patient needs transfusion for less than 7 at this time without known ischemic disease. She does have history of recovered EF heart failure now preserved, and a plethora of medical issues. She resides at the residential. Patient's blood work is without any concern. Abdominal exam is completely benign. I suspect she is here more out of frustration. I do believe that if she does not feel well, she should be checked back out at any time given her late age and multiple comorbidities, however there are no red flags at this time. Will send her back to the residential for ongoing care of her abdominal pain. Medical Records I reviewed the patient's medical records. Lab Data I reviewed the patient's lab results. 05/28/25 11:02 05/28/25 11:02 Labs/Radiology: Laboratory Results WBC 8.56 10^3/uL (3.29-11.43) 05/28/25 11:02 RBC 3.42 10^6/uL (3.85-5.65) L 05/28/25 11:02 Hgb 7.30 g/dL (11.27-16.99) L 05/28/25 11:02 Hct 27.0 % (36-47) L 05/28/25 11:02 MCV 78.9 fl (85-98) L 05/28/25 11:02 MCH 21.3 pg (27-33) L 05/28/25 11:02 MCHC 27.0 g/dL (30-55) L 05/28/25 11:02 RDW 20.9 % (12.1-15.1) H 05/28/25 11:02 Plt Count 476 10^3/cmm (157-399) H 05/28/25 11:02 MPV 8.8 fL (7.4-10.4) 05/28/25 11:02 Neut % (Auto) 76.9 % 05/28/25 11:02 Lymph % (Auto) 12.7 % 05/28/25 11:02 [place] % (Auto) 7.4 % 05/28/25 11:02 Eos % (Auto) 1.9 % 05/28/25 11:02 Baso % (Auto) 0.4 % 05/28/25 11:02 Neut # (Auto) 6.59 10^3/uL (1.8-7.7) 05/28/25 11:02 Lymph # (Auto) 1.1 10^3/uL (0.8-4.8) 05/28/25 11:02 [place] # (Auto) 0.6 10^3/uL (0.2-0.9) 05/28/25 11:02 Eos # (Auto) 0.2 10^3/uL (0.0-0.8) 05/28/25 11:02 Baso # (Auto) 0.0 10^3/uL (0.0-0.1) 05/28/25 11:02 Nucleated RBC % (auto) 0 % 05/28/25 11:02 Nucleated RBCs # 0.0 /100WBC 05/28/25 11:02 Sodium 140 mmol/L (136-145) 05/28/25 11:02 Potassium 4.1 mmol/L (3.5-5.1) 05/28/25 11:02 Chloride 97 mmol/L (98-107) L 05/28/25 11:02 Carbon Dioxide 31 mmol/L (22-29) H 05/28/25 11:02 Anion Gap 16.1 (5-19) 05/28/25 11:02 BUN 18 mg/dL (8-23) 05/28/25 11:02 Creatinine 0.8 mg/dL (0.5-0.9) 05/28/25 11:02 GFR Calculation Not Reportable 05/28/25 11:02 Glucose 201 mg/dL (65-115) H 05/28/25 11:02 Calculated Osmolality 298 mOsm/kg (285-295) H 05/28/25 11:02 Lactic Acid 1.3 mmol/L (0.5-2.2) 05/28/25 11:02 Calcium 9.3 mg/dL (8.5-10.5) 05/28/25 11:02 Total Bilirubin 0.6 mg/dL (0.15-1.2) 05/28/25 11:02 AST 6 U/L (0-32) 05/28/25 11:02 ALT 7 U/L (0-33) 05/28/25 11:02 Alkaline Phosphatase 77 U/L (35-105) 05/28/25 11:02 Total Protein 6.7 g/dL (6.6-8.7) 05/28/25 11:02 Albumin 3.6 g/dL (3.5-5.2) 05/28/25 11:02 Globulin 3.1 g/dL (1.3-4.6) 05/28/25 11:02 Lipase 19 U/L (13-60) 05/28/25 11:02 Urine Color Yellow (Yellow) 05/28/25 11:40 Urine Appearance Clear (CLEAR) 05/28/25 11:40 Urine pH 5.0 (5-7) 05/28/25 11:40 Ur Specific [place] 1.018 (1.005-1.030) 05/28/25 11:40 Urine Protein Negative (Negative) 05/28/25 11:40 Urine Glucose (UA) Negative (Normal) 05/28/25 11:40 Urine Ketones Negative (Negative) 05/28/25 11:40 Urine Blood Negative (Negative) 05/28/25 11:40 Urine Nitrate Negative (Negative) 05/28/25 11:40 Urine Bilirubin Negative (Negative) 05/28/25 11:40 Urine Urobilinogen 1.0 mg/dL (Negative) 05/28/25 11:40 Ur Leukocyte Esterase Negative (Negative) 05/28/25 11:40 Urine RBC 0-2 /hpf (0-2) 05/28/25 11:40 Urine WBC 0-5 /hpf (0-5) 05/28/25 11:40 Ur Squamous Epith Cells 0-5 /hpf (0-5) 05/28/25 11:40 Amorphous Sediment 2+ /hpf 05/28/25 11:40 Urine Bacteria None seen /hpf (NONE) 05/28/25 11:40 Hyaline Casts 30.18 /lpf 05/28/25 11:40 No radiology studies performed this visit EKG Data EKG 1: Interpretation: Atrial fibrillation, controlled rate, no ST segment elevation Discharge Plan Discharge Patient Disposition: Home Clinical Impression: Gastroenteritis Condition: Stable Prescriptions: No Action atorvastatin [Lipitor] 20 mg tablet 20 mg PO BEDTIME albuterol sulfate 90 mcg/actuation HFA aerosol inhaler 2 puff inhalation BID PRN (Reason: Shortness Of Breath) dicyclomine 20 mg tablet 20 mg PO BID PRN (Reason: stomach discomfort) tizanidine 2 mg capsule 2 mg PO Q8H PRN (Reason: Muscle Spasm) acetaminophen [Tylenol] 325 mg Tablet 325 mg PO QID buspirone 10 mg tablet 10 mg PO BID furosemide 40 mg Tablet 40 mg PO DAILY 30 Days Qty: 30 0RF albuterol sulfate 2.5 mg /3 mL (0.083 %) solution for nebulization 2.5 mg inhalation BID PRN (Reason: Wheezing) arformoterol 15 mcg/2 mL solution for nebulization 15 mcg INHALATION BID budesonide 1 mg/2 mL suspension for nebulization 1 mg inhalation BID zinc oxide Ointment 1 applic TOPICAL PRN Trulicity 1.5 mg/0.5 mL pen injector 1.5 mg SUBCUT Q7D Rx Instructions: hydralazine 50 mg tablet 50 mg PO TID Qty: 60 0RF lisinopril 20 mg tablet 10 mg PO DAILY Qty: 30 0RF pantoprazole [Protonix] 40 mg tablet,delayed release (DR/EC) 40 mg PO DAILY Qty: 30 0RF insulin glargine [Lantus U-100 Insulin] 100 unit/mL Solution 20 unit SUBCUT BEDTIME magnesium oxide [MagOx] 400 mg (241.3 mg magnesium) Tablet 200 mg PO BID duloxetine 60 mg capsule,delayed release(DR/EC) 60 mg PO DAILY Spiriva Respimat 2.5 mcg/actuation mist 1 inh INHALATION DAILY Biofreeze (menthol) 4 % Gel 1 applic TOPICAL TID PRN (Reason: Pain) carvedilol 6.25 mg tablet 6.5 mg PO BID ciprofloxacin HCl 500 mg tablet 500 mg PO BID Qty: 14 0RF levothyroxine 50 mcg tablet 50 mcg PO QAM isosorbide mononitrate 30 mg tablet extended release 24 hr 30 mg PO DAILY magnesium hydroxide [Milk of Magnesia] 400 mg/5 mL Suspension 30 ml PO DAILY PRN (Reason: Constipation) bisacodyl 10 mg Suppository 10 mg WI DAILY PRN (Reason: Constipation) Fleet Enema 19-7 gram/118 mL Enema 118 ml WI DAILY PRN (Reason: Constipation) amlodipine 10 mg tablet 10 mg PO DAILY Qty: 60 4RF guaifenesin 100 mg/5 mL Liquid 200 mg PO Q4H PRN (Reason: Cough) ondansetron 4 mg Tablet,Disintegrating 4 mg PO Q4H PRN (Reason: Nausea) loratadine 10 mg Tablet 10 mg PO DAILY Discharge Orders: Discharge ED (Routine); Ordered 05/28/25 Ordered By: Sherry Matos Referrals: Nazia Jha PA [Primary Care Provider, Physicians Client Reporting Associate] Discharge Diet: Clear Liquid and Full LIquid Discharge Activity: Resume usual activity Patient Instructions: Acute Nausea and Vomiting (ED), Patient Portal & [place] Instructions Activity Restrictions/Additional Instructions: - Continue to follow the concerns from 05/26 - No additional concerns were noted today. - Please contact your facility doctor for follow-up tomorrow and repeat labs if needed. - Clear or full liquid diet until symptoms resolved with abdominal pain, and nausea. - Continue your Zofran as ordered. - Return to emergency room if worsening pain, ongoing nausea, vomiting, diarrhea, or fever greater than 100.4 ?F Thank you for choosing [facility] for your healthcare needs today. You have been screened and evaluated and felt safe for discharge. Health conditions do change or evolve sometimes and as such it is important that you follow up with your Primary Doctor to be re checked, 3-5 days is a general good time frame for follow up. 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
--- NOTE | 2025-05-28 11:07 | ECG_ITS ---
[facility] Test Date: 2025-05-28 Pat Name: Lauren Jose Department: Room: Gender: Female Automation Manager: : 1945 Requested By: Sherry Matos Order Number: [id number] Olga MD: JAY SINHA Measurements Intervals [place] Rate: 80 P: 0 NE: 0 QRS: 14 QRSD: 114 T: 129 QT: 409 QTc: 472 Interpretive Statements ATRIAL FIBRILLATION POSSIBLE ANTERIOR MYOCARDIAL INFARCTION , OF INDETERMINATE AGE [30 ms Q WAVE IN V3/V4, OR R < 0.2 mV IN V4] Compared to ECG 02/14/2025 07:55:16 Myocardial infarct finding now present Intraventricular conduction delay no longer present T-wave abnormality no longer present Electronically Signed On 05-28-2025 22:25:07 CDT by AJY SINHA [email or web address]
[2025-05-28 11:12] VITALS: BP 122/58; PULSE 93; RESP 18; O2SAT 93
[2025-05-28 11:12] LABS: Hematocrit 27.0 % (36-47); Hemoglobin 7.30 g/dL (11.27-16.99); Mean Corpuscular HGB Conc 27.0 g/dL (30-55); Mean Corpuscular Hemoglobin 21.3 pg (27-33); Mean Corpuscular Volume 78.9 fl (85-98); Nucleated Red Blood Cells % 0 %; Platelet Count 476 10^3/cmm (157-399); Red Blood Count 3.42 10^6/uL (3.85-5.65); White Blood Count 8.56 10^3/uL (3.29-11.43)
[2025-05-28 11:28] LABS: Alanine Aminotransferase 7 U/L (0-33); Albumin Level 3.6 g/dL (3.5-5.2); Alkaline Phosphatase 77 U/L (35-105); Anion Gap 16.1 (5-19); Aspartate Amino Transferase 6 U/L (0-32); Blood Urea Nitrogen 18 mg/dL (8-23); Calcium 9.3 mg/dL (8.5-10.5); Carbon Dioxide 31 mmol/L (22-29); Chloride 97 mmol/L (98-107); Creatinine Clr Calc Pharmacy 62.9960; Globulin 3.1 g/dL (1.3-4.6); Glucose 201 mg/dL (65-115); Lipase 19 U/L (13-60); Osmolality Calculated 298 mOsm/kg (285-295); Potassium 4.1 mmol/L (3.5-5.1); Sodium 140 mmol/L (136-145); Total Protein 6.7 g/dL (6.6-8.7)
[2025-05-28 11:29] LABS: Lactic Sepsis W/Reflex 1.3 mmol/L (0.5-2.2)
[2025-05-28 11:46] LABS: Glucose Urine UA Negative (Normal); Nitrate Urine Negative (Negative); Specific Gravity, Urine 1.018 (1.005-1.030)
[2025-05-28 11:51] LABS: Add Urine Microscopic? YES
[2025-05-28 12:02] LABS: UA Slide Review UA Slide Review Perf
[2025-05-28 12:22] VITALS: BP 140/81; PULSE 78; RESP 24; O2SAT 93
--- NOTE | 2025-05-28 12:29 | PC.NURSE ---
Report given to nursing staff at [facility]
[2025-05-28 13:51] VITALS: BP 142/79; PULSE 80; RESP 20; O2SAT 93
== END 2025-05-28 14:02 | disposition home or self-care (01) ==
PROVIDERS: Emergency Provider Physician Assistant; PCP Physician Assistant
DX: K52.9 Noninfective gastroenteritis and colitis, unspecified (principal); Z79.4 Long term (current) use of insulin; Z79.85 Long-term (current) use of injectable non-insulin antidiabetic drugs; Z87.891 Personal history of nicotine dependence; J44.9 Chronic obstructive pulmonary disease, unspecified; E11.9 Type 2 diabetes mellitus without complications; I11.0 Hypertensive heart disease with heart failure; I50.22 Chronic systolic (congestive) heart failure
CPT/HCPCS: 80053; 81001; 83605; 83690; 85025; 93005; 99284

== ENCOUNTER 2025-05-30 06:52 | Inpatient (IN) | payer MEDICARE, MEDICAID, SELFPAY ==
[2025-05-30] VITALS (21 sets, daily range): BP systolic 123–154; BP diastolic 71–107; PULSE 86–109; RESP 17–24; TEMP 36–37.7; O2SAT 92–98; BMI 45.0
--- NOTE | 2025-05-30 06:59 | XR_ITS ---
WS: [id number] Exam: XR chest 1V portable [id number] Date/Time of Exam: 05/30/2025 7:00 AM Reason For Exam: dyspnea/cough Comparison 05/26/2025. Cardiac enlargement unchanged. The lungs are fully expanded and clear. No obvious pleural effusion. The mediastinum is normal in contour. Bony structures are unremarkable. Neurostimulator leads are noted in the T-spine. XR/XR chest 1V portable [id number] IMPRESSION: 1. Cardiac enlargement unchanged. No acute process identified.
--- OUTSIDE RECORDS SUMMARY | 2025-05-30 06:59 | XMS_ITS | Patient Health Record ---
Author Organization [facility] Address [address] [place] [address] Support Name Relationship Address Phone Lauren Jose Guarantor Unknown Unavailable Reason For Referral No Information Plan Of Treatment No Information
--- NOTE | 2025-05-30 07:00 | ECG_ITS ---
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 Measurements Intervals [place] Rate: 111 P: 0 IA: 0 QRS: 36 QRSD: 112 T: 93 QT: 338 QTc: 459 Interpretive Statements ATRIAL FIBRILLATION WITH RAPID VENTRICULAR RESPONSE LOW QRS VOLTAGE [QRS DEFLECTION < 0.5/1.0 mV IN LIMB/CHEST LEADS] POSSIBLE ANTERIOR MYOCARDIAL INFARCTION , OF INDETERMINATE AGE [30 ms Q WAVE IN V3/V4, OR R < 0.2 mV IN V4] Compared to ECG 05/28/2025 11:07:17 Low QRS voltage now present Myocardial infarct finding still present Electronically Signed On 06-01-2025 08:49:22 CDT by Phong Kenyon M.D. [email or web address]
--- NOTE | 2025-05-30 07:05 | W.ED.WEAKNES ---
HPI - Weakness General: Chief complaint: Weakness Stated complaint: afib, weakness History of Present Illness: 79-year-old female presents emergency room via EMS from local longterm. Patient complained of generalized weakness and not feeling well. custodial report patient was in A-fib with RVR. On arrival here patient is in A-fib but rate is relatively well-controlled. Initial EKG showed a rate of 111 resting monitor at the bedside shows rate at 98 to just over 100. Patient is Do Not Recussitate normally wears 3 to 4 L oxygen at baseline. She denies any chest pain or discomfort. Associated symptoms: Denies chest pain, chills, dysuria or fever(s) Related Data Home Medications ?Medication ?Instructions ?Recorded ?Confirmed atorvastatin 20 mg tablet (Lipitor) 20 mg PO BEDTIME 09/30/19 05/30/25 acetaminophen 325 mg tablet 650 mg PO QID Pain 08/22/20 05/30/25 (Tylenol) buspirone 10 mg tablet 10 mg PO BID 12/13/20 05/30/25 albuterol sulfate 90 mcg/actuation 1 puff inhalation Q4H PRN Wheezing 08/21/23 05/30/25 aerosol inhaler bisacodyl 10 mg rectal suppository 10 mg ID DAILY PRN Constipation 10/08/23 05/30/25 isosorbide mononitrate 30 mg 30 mg PO DAILY 10/08/23 05/30/25 tablet,extended release 24 hr magnesium hydroxide 400 mg/5 mL 30 ml PO DAILY PRN Constipation 10/08/23 05/30/25 oral suspension (Milk of Magnesia) sodium phosphates 19 gram-7 118 ml ID DAILY PRN Constipation 10/08/23 05/30/25 gram/118 mL enema (Fleet Enema) dicyclomine 20 mg tablet 20 mg PO Q8H PRN Diarrhea 10/27/23 05/30/25 guaifenesin 100 mg/5 mL oral liquid 200 mg PO Q4H PRN Cough 10/23/24 05/30/25 loratadine 10 mg tablet 10 mg PO DAILY 10/23/24 05/30/25 ondansetron 4 mg disintegrating 4 mg PO Q4H PRN Nausea 10/23/24 05/30/25 tablet tizanidine 2 mg capsule 2 mg PO Q8H PRN Muscle Spasm 12/21/24 05/30/25 albuterol sulfate 2.5 mg/3 mL 2.5 mg inhalation Q12H PRN Wheezing 02/12/25 05/30/25 (0.083 %) solution for nebulization arformoterol 15 mcg/2 mL solution 15 mcg inhalation BID 02/12/25 05/30/25 for nebulization budesonide 1 mg/2 mL suspension 1 mg inhalation BID 02/12/25 05/30/25 for nebulization dulaglutide 1.5 mg/0.5 mL 1.5 mg SUBCUT Q7D 02/12/25 05/30/25 subcutaneous pen injector (Trulicity) carvedilol 6.25 mg tablet 6.5 mg PO BID 05/08/25 05/30/25 duloxetine 60 mg capsule,delayed 60 mg PO DAILY 05/08/25 05/30/25 release Held on 05/10/25. Instructions: Resume on 05/16/25. insulin glargine 100 unit/mL 20 unit SUBCUT BEDTIME 05/08/25 05/30/25 subcutaneous solution (Lantus U-100 Insulin) magnesium oxide 400 mg (241.3 mg 200 mg PO BID 05/08/25 05/30/25 magnesium) tablet (MagOx) menthol 4 % topical gel (Biofreeze 1 applic topical Q8H PRN Pain 05/08/25 05/30/25 (menthol)) tiotropium bromide 2.5 1 inh inhalation DAILY 05/08/25 05/30/25 mcg/actuation mist for inhalation (Spiriva Respimat) levothyroxine 50 mcg tablet 50 mcg PO QAM 05/26/25 05/30/25 ascorbic acid (vitamin C) 500 mg 500 mg PO DAILY 05/30/25 05/30/25 tablet (Vitamin C) ferrous sulfate 325 mg (65 mg 325 mg PO BID 05/30/25 05/30/25 iron) tablet furosemide 40 mg tablet 40 mg PO BID 05/30/25 05/30/25 hydralazine 50 mg tablet 50 mg PO QID 05/30/25 05/30/25 tramadol 50 mg tablet 50 mg PO Q4H PRN Pain 05/30/25 05/30/25 zinc oxide 20 % topical paste See Rx Instructions .Route .COMPLEX 05/30/25 05/30/25 Previous Rx's ?Medication ?Instructions ?Recorded amlodipine 10 mg tablet 10 mg PO DAILY #60 tabs 10/10/23 lisinopril 20 mg tablet 10 mg (1/2 x 20 mg) PO DAILY #30 02/16/25 tabs pantoprazole 40 mg tablet,delayed 40 mg PO DAILY #30 tabs 02/16/25 release (Protonix) Allergies Allergy/AdvReac Type Severity Reaction Status Date / Time No Known Allergies Allergy Verified 12/21/24 08:12 Review of Systems Const: Denies: fever(s) or chills Card: Reports: palpitations, edema and swelling of feet/ankles; Denies: chest pain Resp: Denies: dyspnea GI: Denies: abdominal pain : Denies: dysuria, urinary frequency or urinary urgency Musc: Denies: neck pain or back pain Skin/Breast: Denies: rash PFSH ED PFSH: Medical History Heart failure with improved ejection fraction (HFimpEF) Bradycardia Hyperkalemia Anemia Acute diverticulitis Heart block AV third degree Obesity hypoventilation syndrome Hyperkalemia Morbid obesity Acute respiratory failure with hypoxia and hypercapnia Shortness of breath Acute kidney injury Chronic CHF (congestive heart failure) Hypokalemia Hypomagnesemia Torsades de pointes Diarrhea Takotsubo cardiomyopathy Gastritis Blood in stool Acute HFrEF (heart failure with reduced ejection fraction) HFrEF (heart failure with reduced ejection fraction) Stress-induced cardiomyopathy Diabetes Hypertension Non-ST elevation [place] (NSTEMI) History of cerebrovascular accident COPD (chronic obstructive pulmonary disease) Hypertension Depression with anxiety History of GI bleed GERD (gastroesophageal reflux disease) Diabetes CVA (cerebral vascular accident) COPD (chronic obstructive pulmonary disease) Carpal tunnel syndrome on both sides Opioid contract exists Encounter for long-term use of opiate analgesic Chronic radicular low back pain Smokeless tobacco use Low back pain Surgical History History of esophagogastroduodenoscopy (EGD) (~11/2020) History of colonoscopy (~11/2020) H/O knee surgery History of knee replacement History of lumbar surgery Also history of spinal cord stimulator, currently not functioning History of shoulder surgery Family History Other CAD (coronary artery disease) Diverticulitis Hypertension Stroke Denies family history of Anesthesia complication Bleeding disorder Social History Smoking and tobacco/nicotine status: former use of tobacco/nicotine Quit status (tobacco/nicotine): has quit using Year quit tobacco: 2012 Former quit date comment: 2ppd X 48 years Alcohol intake: never Substance/Drug Use: never Housing: Long Term Physical Exam Const: GENERAL APPEARANCE: cooperative ORIENTATION/CONSCIOUSNESS: Yes awake HENMT: COMMON NORMALS: normocephalic, atraumatic and hearing grossly normal bilaterally HEAD & SCALP: normocephalic and atraumatic Resp: COMMON NORMALS: normal respiratory effort, No retractions and No use of accessory muscles AUSCULTATION: wheezes Cardio: COMMON NORMALS: No murmurs present (Cardio) RATE: tachycardic RHYTHM: abnormal rhythm irregularly irregular GI: COMMON NORMALS: Soft to palpation and No hepatosplenomegaly present AUSCULTATION: Yes normoactive bowel sounds PALPATION: Yes Soft to palpation, No Tenderness to palpation present (GI), No Guarding due to palpation present (GI) and Yes No hepatosplenomegaly present Extremity: COMMON NORMALS: normal to inspection, capillary refill normal, no clubbing, cyanosis or edema, no calf tenderness and no pedal edema Skin: COMMON NORMALS: no rashes or lesions noted GENERAL SKIN EXAM: no rashes or lesions noted Course Vital Signs: Vital signs: Vital Signs Temperature 98.5 F 05/30/25 06:52 Pulse Rate 88 05/30/25 11:08 Respiratory Rate 24 H 05/30/25 10:16 Blood Pressure 132/79 05/30/25 10:45 Pulse Oximetry 93 05/30/25 11:08 Oxygen Delivery Me thod BiPAP 05/30/25 10:45 Oxygen Flow Rate 4 05/30/25 10:45 Fraction of Inspir ed Oxygen 30 05/30/25 11:08 MDM - Weakness Medical Decision Making Patient is to report was of rapid heart rate. Rate is controlled while she is here family reports a bigger problem that she was short of breath her sats been difficult to track because of positioning chest x-ray was unremarkable. ABG done and it shows hypercapnic respiratory failure. Will admit. Also noted the patient's was taken off of her anticoagulant a week ago because of anemia. Have discussed with Dr. Carmichael orders written he is good to get D-dimer flu COVID and RSV. Patient given steroids and nebulizer as well. Cardiac enzymes EKG unremarkable. Hemoglobin slightly increased from previous. Medical Records I reviewed the patient's medical records. Lab Data I reviewed the patient's lab results. 05/30/25 06:29 05/30/25 06:29 Radiology Impressions Chest X-Ray 05/30/25 06:59 IMPRESSION: 1. Cardiac enlargement unchanged. No acute process identified. Laboratory Results WBC 10.40 10^3/uL (3.29-11.43) 05/30/25 06: RBC 3.74 10^6/uL (3.85-5.65) L 05/30/25 06: Hgb 8.30 g/dL (11.27-16.99) L 05/30/25: Hct 29.7 % (36-47) L 05/30/25: MCV 79.4 fl (85-98) L 05/30/25: MCH 22.2 pg (27-33) L 05/30/25: MCHC 27.9 g/dL (30-55) L 05/30/25: RDW 21.7 % (12.1-15.1) H 05/30/25 06: Plt Count 515 10^3/cmm (157-399) H 05/30/25: MPV 8.8 fL (7.4-10.4) 05/30/25: Neut % (Auto) 78.4 % 05/30/25: Lymph % (Auto) 11.5 % 05/30/25: [place] % (Auto) 6.4 % 05/30/25: Eos % (Auto) 2.1 % 05/30/25: Baso % (Auto) 0.6 % 05/30/25: Neut # (Auto) 8.15 10^3/uL (1.8-7.7) H 05/30/25 06: Lymph # (Auto) 1.2 10^3/uL (0.8-4.8) 05/30/25 06:29 [place] # (Auto) 0.7 10^3/uL (0.2-0.9) 05/30/25 06:29 Eos # (Auto) 0.2 10^3/uL (0.0-0.8) 05/30/25 06:29 Baso # (Auto) 0.1 10^3/uL (0.0-0.1) 05/30/25 06: Nucleated RBC % (auto) 0.2 % 05/30/25 06: Nucleated RBCs # 0.0 /100WBC 05/30/25 06:29 D-Dimer 1.04 ug/mLFEU (0-0.59) H 05/30/25 06:29 Specimen Type Arterial 05/30/25 10:48 Sample Site Radial, left 05/30/25 10:48 ABG pH 7.34 (7.35-7.45) L 05/30/25 10:48 ABG pCO2 72.8 mmHg (35-45) H* 05/30/25 10:48 ABG pO2 73.2 mmHg (80.0-100.0) L 05/30/25 10:48 ABG PO2/FiO2 Ratio 209 05/30/25 10:48 ABG HCO3 38.8 mmol/L (22-26) H 05/30/25 10:48 ABG O2 Saturation 93.2 05/30/25 10:48 ABG Base Excess 11.3 mmol/L (-2.0-2.0) H 05/30/25 10:48 Cornel Test Pos 05/30/25 10:48 A-a O2 Gradient 11.5 mmHg (5-10) H 05/30/25 10:48 Hematocrit 25.8 % (37-47) L 05/30/25 10:48 Hgb O2 Saturation 90.5 % (95-100) L 05/30/25 10:48 Carboxyhemoglobin 1.6 %THgb (0.4-20.1) 05/30/25 10:48 Methemoglobin 1.3 % (0.4-1.5) 05/30/25 10:48 Total Hemoglobin 8.4 g/dL (12-16) L 05/30/25 10:48 Sodium 146.0 mmol/L (131-143) H 05/30/25 10:48 Potassium 4.8 mmol/L (3.5-5.0) 05/30/25 10:48 Glucose 120.0 mg/dL (70-115) H 05/30/25 10:48 Ionized Calcium 1.3 mmol/L (1.1-1.4) 05/30/25 10:48 O2 Delivery Device Bipap 05/30/25 10:48 O2 Liters/Min 3.0 % 05/30/25 09:47 FiO2 35.0 % 05/30/25 10:48 Lime Sludge Kiln Operator ID [place] 05/30/25 10:48 Sodium 143 mmol/L (136-145) 05/30/25 06:29 Potassium 5.0 mmol/L (3.5-5.1) 05/30/25 06:29 Chloride 98 mmol/L (98-107) 05/30/25 06:29 Carbon Dioxide 33 mmol/L (22-29) H 05/30/25 06:29 Anion Gap 17.0 (5-19) 05/30/25 06:29 BUN 22 mg/dL (8-23) 05/30/25 06:29 Creatinine 0.9 mg/dL (0.5-0.9) 05/30/25 06:29 GFR Calculation Not Reportable 05/30/25 06:29 Glucose 138 mg/dL (65-115) H 05/30/25 06:29 Calculated Osmolality 302 mOsm/kg (285-295) H 05/30/25 06:29 Calcium 10.2 mg/dL (8.5-10.5) 05/30/25 06:29 Total Bilirubin 0.6 mg/dL (0.15-1.2) 05/30/25 06:29 AST 7 U/L (0-32) 05/30/25 06:29 ALT 8 U/L (0-33) 05/30/25 06:29 Alkaline Phosphatase 103 U/L (35-105) 05/30/25 06:29 Troponin T Baseline 28 ng/L (0-10) H 05/30/25 06:29 Troponin T 120 Minute 25.06 ng/L (0-10) H 05/30/25 08:13 Delta Troponin T -2.94 ABS# (0-10) L 05/30/25 08:13 Total Protein 7.3 g/dL (6.6-8.7) 05/30/25 06:29 Albumin 4.1 g/dL (3.5-5.2) 05/30/25 06:29 Globulin 3.2 g/dL (1.3-4.6) 05/30/25 06:29 Urine Color Yellow (Yellow) 05/30/25 07:35 Urine Appearance Clear (CLEAR) 05/30/25 07:35 Urine pH 5.0 (5-7) 05/30/25 07:35 Ur Specific [place] 1.016 (1.005-1.030) 05/30/25 07:35 Urine Protein Trace (Negative) A 05/30/25 07:35 Urine Glucose (UA) Negative (Normal) 05/30/25 07:35 Urine Ketones Negative (Negative) 05/30/25 07:35 Urine Blood Negative (Negative) 05/30/25 07:35 Urine Nitrate Negative (Negative) 05/30/25 07:35 Urine Bilirubin Negative (Negative) 05/30/25 07:35 Urine Urobilinogen 1.0 mg/dL (Negative) 05/30/25 07:35 Ur Leukocyte Esterase Negative (Negative) 05/30/25 07:35 Urine RBC 0-2 /hpf (0-2) 05/30/25 07:35 Urine WBC 0-5 /hpf (0-5) 05/30/25 07:35 Ur Squamous Epith Cells 0-5 /hpf (0-5) 05/30/25 07:35 Amorphous Sediment Not Reportable 05/30/25 07:35 Urine Bacteria None seen /hpf (NONE) 05/30/25 07:35 Hyaline Casts 9.91 /lpf 05/30/25 07:35 All radiology interpretation(s) finalized by discharge EKG Data EKG 1: I personally reviewed and interpreted this EKG as follows: EKG interpretation date: 05/30/25 Prior EKG tracings: available for review Interpretation: EKG 05/30/2025 7 AM atrial fibrillation with a rate of 111 [address]Tc [address] No acute [address] changes noted. Compared to the EKG 05/28/2025 rate is slightly increased otherwise no acute changes EKG 2: EKG interpretation date: 05/30/25 Prior EKG tracings: available for review Discharge Plan Discharge Patient Disposition: Admitted As Inpatient Admit Provider: Gentry Syed Clinical Impression: Acute hypercapnic respiratory failure, Asthma exacerbation in COPD, History of pulmonary embolism, Atrial fibrillation Condition: Stable Coding Level of Care Code ED Airline Transport Pilot for Lea Dinero
[2025-05-30 07:07] LABS: Hematocrit 29.7 % (36-47); Hemoglobin 8.30 g/dL (11.27-16.99); Mean Corpuscular HGB Conc 27.9 g/dL (30-55); Mean Corpuscular Hemoglobin 22.2 pg (27-33); Mean Corpuscular Volume 79.4 fl (85-98); Nucleated Red Blood Cells % 0.2 %; Platelet Count 515 10^3/cmm (157-399); Red Blood Count 3.74 10^6/uL (3.85-5.65); White Blood Count 10.40 10^3/uL (3.29-11.43)
[2025-05-30 07:28] LABS: Alanine Aminotransferase 8 U/L (0-33); Albumin Level 4.1 g/dL (3.5-5.2); Alkaline Phosphatase 103 U/L (35-105); Anion Gap 17.0 (5-19); Aspartate Amino Transferase 7 U/L (0-32); Blood Urea Nitrogen 22 mg/dL (8-23); Calcium 10.2 mg/dL (8.5-10.5); Carbon Dioxide 33 mmol/L (22-29); Chloride 98 mmol/L (98-107); Creatinine Clr Calc Pharmacy 83.5901; Globulin 3.2 g/dL (1.3-4.6); Glucose 138 mg/dL (65-115); Osmolality Calculated 302 mOsm/kg (285-295); Potassium 5.0 mmol/L (3.5-5.1); Sodium 143 mmol/L (136-145); Total Protein 7.3 g/dL (6.6-8.7)
[2025-05-30 07:29] LABS: Troponin(5th) Baseline 28 ng/L (0-10)
[2025-05-30 07:43] LABS: Glucose Urine UA Negative (Normal); Nitrate Urine Negative (Negative); Specific Gravity, Urine 1.016 (1.005-1.030)
[2025-05-30 07:47] LABS: Add Urine Microscopic? YES
--- NOTE | 2025-05-30 07:57 | PC.PHAR ---
pt is from [facility]
[2025-05-30 08:11] LABS: UA Slide Review UA Slide Review Perf
[2025-05-30 08:42] LABS: Troponin 5 2HR 25.06 ng/L (0-10)
[2025-05-30 08:44] LABS: Troponin 5 2HR Delta -2.94 ABS# (0-10)
[2025-05-30 09:58] LABS: ABG PCO2 70.7 mmHg (35-45); ABG PH Result 7.35 (7.35-7.45); Alveolar-Arterial Oxygen Gradi 0.9 mmHg (5-10); Arterial Blood Gas Hematocrit 24.6 % (37-47); Blood Gas Allen Test Pos; Blood Gas LPM 3.0 %; Blood Gas Operator Identificat WACI; Blood Gas Sample Site Radial, left; Blood Gas Sample Type Arterial; Carboxyhemoglobin 1.6 %THgb (0.4-20.1); Glucose Level-ABG 121.0 mg/dL (70-115); HCO3 ABG 38.7 mmol/L (22-26); Ionized Calcium Level - ABG 1.3 mmol/L (1.1-1.4); Methemoglobin 1.1 % (0.4-1.5); Oxygen Saturation ABG 88.4; PO2 ABG 57.4 mmHg (80.0-100.0); Potassium Level - ABG 4.5 mmol/L (3.5-5.0); Sodium Level - ABG 143.0 mmol/L (131-143)
[2025-05-30 11:02] LABS: Arterial Blood Gas Hematocrit 25.8 % (37-47); Blood Gas Allen Test Pos; Blood Gas Operator Identificat WALCI; Blood Gas Sample Site Radial, left; Blood Gas Sample Type Arterial; Ionized Calcium Level - ABG 1.3 mmol/L (1.1-1.4); Potassium Level - ABG 4.8 mmol/L (3.5-5.0); Sodium Level - ABG 146.0 mmol/L (131-143)
--- NOTE | 2025-05-30 11:35 | CT_ITS ---
WS: [id number] CT CHEST ANGIOGRAPHY WITH REFORMATS HISTORY: assess for PE TECHNIQUE: Contiguous axial images are obtained through the chest during arterial injection of intravenous contrast. Images are reconstructed to evaluate the pulmonary arteries. MIP imaging also reviewed. All CT scans at [facility] use at least one of these dose optimization techniques: automated exposure control; mA and/or kV adjustment per patient size (includes targeted exams where dose is matched to clinical indication); or iterative reconstruction. CONTRAST: Omnipaque 350; 100 mL IV. DLP: 474.66 mGy.cm COMPARISON: 02/12/2025 Good opacification of the pulmonary arteries. No pulmonary embolism is identified. No filling defects in the pulmonary arteries. Main pulmonary artery is dilated. Moderate atherosclerotic plaque within a nondilated thoracic aorta. Moderately enlarged heart. No pericardial effusion. Very small bilateral pleural effusions with compressive atelectasis. Mild hazy attenuation throughout both lungs is probably edema from fluid overload. No dense consolidation. No mediastinal or hilar adenopathy. Prior cholecystectomy. 8 mm LEFT adrenal nodule. Mild distal esophageal wall thickening and edema. This is new since the study of 02/12/2025. Overall there is increased in the soft tissue anasarca and edema. Dorsal column stimulator electrodes in the mid thoracic region. Reidentified are several sclerotic foci within thoracic vertebral bodies. These foci stable since at least 11/10/2023. CT/CT angio chest PE protcl [id number] IMPRESSION: 1. No pulmonary embolism. 2. Dilated pulmonary artery. 3. Moderately enlarged heart. 4. Mild pulmonary edema. 5. Very small bilateral pleural effusions with compressive atelectasis. 6. Prior cholecystectomy. 7. Stable LEFT adrenal adenoma.
--- NOTE | 2025-05-30 12:12 | PM.HP ---
Documented by User: [facility]ALYN Russell [facility] 05/30/25 14:09 Providers/Chief Complaint Admitting Physician: Gentry Syed Primary Care Provider: Nazia Jha Chief Complaint: afib, weakness History of Present Illness Lauren Jose is a 79 year old female brought to ED via EMS from [facility] for generalized weakness. ED Triage note reports patient was in atrial fibrillation rapid ventricular rate when EMS arrived but rate had corrected to below 100 bpm without intervention. EMS noted she has a DNR to allow natural . Her history is significant for atrial fibrillation, congestive heart failure, type 2 diabetes mellitus, hypertension, gastroesophageal reflux disease, chronic obstructive pulmonary disease, cerebral vascular accident, NSTEMI, and anemia. She has a previous 2 day admission at [facility] on 05/08/25 for diverticulitis where she was found to have acute blood loss anemia and was transfused to stable hemoglobin of 7.5. Her Eliquis was held during this visit due to lower GI bleeding and discharged with follow up colonoscopy at 6 weeks. She was alert and oriented x3 and in no distress breathing with 2-3L by nasal cannula at time of discharge. In the ED, she is somnolent and mildly confused but is oriented to person, place, and year. She is currently on a BIPAP mask at 4L. She can answer questions, but it is difficult to understand her answers due to her mumbling and speaking softly. She does not know why she is in the hospital. She reports pain in her left leg and burning pain in her stomach. Review of systems is positive for cough and dysuria. She denies fever, chills, weight loss, nausea, vomiting, diarrhea, constipation, rashes, nor chest pain. Review of Systems General: Reports: 10 or more systems reviewed and unremarkable except in HPI and below Medications/Allergies Home Medications ?Medication ?Instructions ?Recorded ?Confirmed ?Last Taken ?Type atorvastatin 20 mg tablet (Lipitor) 20 mg PO BEDTIME 09/30/19 05/30/25 05/29/25 History acetaminophen 325 mg tablet 650 mg PO QID Pain 08/22/20 05/30/25 05/29/25 History (Tylenol) buspirone 10 mg tablet 10 mg PO BID 12/13/20 05/30/25 05/29/25 History albuterol sulfate 90 mcg/actuation 1 puff inhalation Q4H PRN Wheezing 08/21/23 05/30/25 02/12/25 History aerosol inhaler bisacodyl 10 mg rectal suppository 10 mg IL DAILY PRN Constipation 10/08/23 05/30/25 Unknown History isosorbide mononitrate 30 mg 30 mg PO DAILY 10/08/23 05/30/25 05/29/25 History tablet,extended release 24 hr magnesium hydroxide 400 mg/5 mL 30 ml PO DAILY PRN Constipation 10/08/23 05/30/25 08/21/24 History oral suspension (Milk of Magnesia) sodium phosphates 19 gram-7 118 ml IL DAILY PRN Constipation 10/08/23 05/30/25 Unknown History gram/118 mL enema (Fleet Enema) amlodipine 10 mg tablet 10 mg PO DAILY #60 tabs 10/10/23 05/30/25 05/29/25 Rx dicyclomine 20 mg tablet 20 mg PO Q8H PRN Diarrhea 10/27/23 05/30/25 05/07/25 10:55 History guaifenesin 100 mg/5 mL oral liquid 200 mg PO Q4H PRN Cough 10/23/24 05/30/25 05/04/25 16:45 History loratadine 10 mg tablet 10 mg PO DAILY 10/23/24 05/30/25 05/29/25 History ondansetron 4 mg disintegrating 4 mg PO Q4H PRN Nausea 10/23/24 05/30/25 05/07/25 13:15 History tablet tizanidine 2 mg capsule 2 mg PO Q8H PRN Muscle Spasm 12/21/24 05/30/25 05/07/25 10:55 History albuterol sulfate 2.5 mg/3 mL 2.5 mg inhalation Q12H PRN Wheezing 02/12/25 05/30/25 05/07/25 16:20 History (0.083 %) solution for nebulization arformoterol 15 mcg/2 mL solution 15 mcg inhalation BID 02/12/25 05/30/25 05/29/25 History for nebulization budesonide 1 mg/2 mL suspension 1 mg inhalation BID 02/12/25 05/30/25 05/29/25 History for nebulization dulaglutide 1.5 mg/0.5 mL 1.5 mg SUBCUT Q7D 02/12/25 05/30/25 05/25/25 History subcutaneous pen injector (Trulicity) lisinopril 20 mg tablet 10 mg (1/2 x 20 mg) PO DAILY #30 02/16/25 05/30/25 05/29/25 Rx tabs pantoprazole 40 mg tablet,delayed 40 mg PO DAILY #30 tabs 02/16/25 05/30/25 05/29/25 Rx release (Protonix) carvedilol 6.25 mg tablet 6.5 mg PO BID 05/08/25 05/30/25 05/29/25 History duloxetine 60 mg capsule,delayed 60 mg PO DAILY 05/08/25 05/30/25 05/29/25 History release Held on 05/10/25. Instructions: Resume on 05/16/25. insulin glargine 100 unit/mL 20 unit SUBCUT BEDTIME 05/08/25 05/30/25 05/29/25 History subcutaneous solution (Lantus U-100 Insulin) magnesium oxide 400 mg (241.3 mg 200 mg PO BID 05/08/25 05/30/25 05/29/25 History magnesium) tablet (MagOx) menthol 4 % topical gel (Biofreeze 1 applic topical Q8H PRN Pain 05/08/25 05/30/25 Unknown History (menthol)) tiotropium bromide 2.5 1 inh inhalation DAILY 05/08/25 05/30/25 05/29/25 History mcg/actuation mist for inhalation (Spiriva Respimat) levothyroxine 50 mcg tablet 50 mcg PO QAM 05/26/25 05/30/25 05/30/25 History ascorbic acid (vitamin C) 500 mg 500 mg PO DAILY 05/30/25 05/30/25 05/29/25 History tablet (Vitamin C) ferrous sulfate 325 mg (65 mg 325 mg PO BID 05/30/25 05/30/25 05/29/25 History iron) tablet furosemide 40 mg tablet 40 mg PO BID 05/30/25 05/30/25 05/29/25 History hydralazine 50 mg tablet 50 mg PO QID 05/30/25 05/30/25 05/29/25 History tramadol 50 mg tablet 50 mg PO Q4H PRN Pain 05/30/25 05/30/25 Unknown History zinc oxide 20 % topical paste See Rx Instructions .Route .COMPLEX 05/30/25 05/30/25 Unknown History Allergies Allergy/AdvReac Type Severity Reaction Status Date / Time No Known Allergies Allergy Verified 12/21/24 08:12 PFSH Acute PFSH: Medical History Heart failure with improved ejection fraction (HFimpEF) Bradycardia Hyperkalemia Anemia Acute diverticulitis Heart block AV third degree Obesity hypoventilation syndrome Hyperkalemia Morbid obesity Acute respiratory failure with hypoxia and hypercapnia Shortness of breath Acute kidney injury Chronic CHF (congestive heart failure) Hypokalemia Hypomagnesemia Torsades de pointes Diarrhea Takotsubo cardiomyopathy Gastritis Blood in stool Acute HFrEF (heart failure with reduced ejection fraction) HFrEF (heart failure with reduced ejection fraction) Stress-induced cardiomyopathy Diabetes Hypertension Non-ST elevation OR (NSTEMI) History of cerebrovascular accident COPD (chronic obstructive pulmonary disease) Hypertension Depression with anxiety History of GI bleed GERD (gastroesophageal reflux disease) Diabetes CVA (cerebral vascular accident) COPD (chronic obstructive pulmonary disease) Carpal tunnel syndrome on both sides Opioid contract exists Encounter for long-term use of opiate analgesic Chronic radicular low back pain Smokeless tobacco use Low back pain Surgical History History of esophagogastroduodenoscopy (EGD) (~11/2020) History of colonoscopy (~11/2020) H/O knee surgery History of knee replacement History of lumbar surgery Also history of spinal cord stimulator, currently not functioning History of shoulder surgery Family History Other CAD (coronary artery disease) Diverticulitis Hypertension Stroke Denies family history of Anesthesia complication Bleeding disorder Social History Smoking and tobacco/nicotine status: former use of tobacco/nicotine Quit status (tobacco/nicotine): has quit using Year quit tobacco: 2012 Former quit date comment: 2ppd X 48 years Alcohol intake: never Substance/Drug Use: never Housing: Alf Vitals/I&O/Wt Last Vital Signs Temp 98.5 F 05/30/25 06:52 Pulse 88 05/30/25 11:08 Resp 24 H 05/30/25 10:16 BP 132/79 05/30/25 10:45 Pulse Ox 93 05/30/25 11:08 O2 Del Method BiPAP 05/30/25 10:45 O2 Flow Rate 4 05/30/25 10:45 FiO2 30 05/30/25 11:08 Weight last 48 hrs Weight 101.151 kg Physical Exam Narrative: General: somnolent obese woman laying in semifetal position on her left side. Chest: No rashes or lesions noted on inspection. Resp: Lungs clear to auscultation bilaterally. Cardio: S1, S2 heard. Regular rate, irregular rhythm. No murmurs heard. Extremities: Flaky bilateral lower extremities. Mild tenderness to palpation of LLE near the anterior tibia. Mildly erythematous patch noted along anterior tibia. Neuro: somnolent but arouses easily to verbal stimuli. Alert to verbal stimuli. Oriented to person, place, and year. Intermittent generalized myoclonic jerks present. Data 05/30/25 13:58 05/30/25 06:29 A&P Assessment and plan 1. Acute on chronic respiratory failure with hypoxia and hypercapnia: Plan: Problem List 1. Dyspnea 2. Somnolence and lethargy 3. Chronic pain Differential diagnosis: COPD exacerbation, hypovolemia, thromboembolism, community-acquired pneumonia, medication induced delirium. Assessment and Plan 1. Acute hypoxic respiratory failure - patient has a long history of COPD requiring 2-3L O2 at baseline. Currently on BIPAP. Possible acute insult to existing chronic lung disease may be responsible for patient's current status. - Hypercapnic respiratory acidosis seen worsening on two separate ABGs. Patient switched to average volume assured pressure support (AVAPS) mode on BIPAP. Patient is tolerating AVAPS mode well. Will monitor and assess if she improves. - Patient has an Allow Natural order with her daughter as DPOA. - Will order respiratory viral panel For influenza and COVID-19. - CT angiogram reveals no pulmonary embolism. 2. Altered mental status. -Patient ABG taken in the emergency department shows mild respiratory acidosis with hypercapnia which may be causing AMS. -may also be due to presence of medication side effects. Will hold offending medications. - Will assess fluid status. Weighing risk of dehydration against risk of fluid overload. Will hold fluids for now due to presence of cardiomegaly found on chest x-ray. -Urinalysis assessed in ED shows no signs of UTI. -Chest x-ray shows no acute infiltrate nor signs of lobar pneumonia. 3. Aspiration precautions - Ordered diet is clear liquids only due to aspiration risk. 4. Thromboembolism and bleeding risk - Patient has atrial fibrillation and previous cerebrovascular accident. She was previously anticoagulated with Eliquis, but this was withheld due to acute blood loss anemia found evidence of GI bleed. - Will give heparin prophylaxis for DVT risk. Will follow up with Duplex US of lower extremities. Plan to assess hemoglobin every 6 hours for evidence of bleed. - Will administer methylprednisolone for treatment of acute COPD exacerbation. Will also administer pantoprazole to reduce risk of gastritis induced bleed. 5. Diabetes, insulin dependent - Will reduce basal insulin dose. - Patient is on clear liquid diet. 6. Atrial fibrillation RVR - Patient stable with no other episodes of A-fib RVR. Will monitor with telemetry in cardiac stepdown and rate control as needed. 7. Chronic anemia -Patient has chronic anemia with hemoglobin around 7-8. Transfuse if hemoglobin less than 7. 8. Follow-up - Patient has follow-up for diverticulitis and GI bleed with colonoscopy in 3 weeks with general surgery. Sergio Casiano, 3 PDMP PDMP Reviewed: Not Reviewed Attestations Medical Necessity Statement*: acute respiratory failure and management of respiratory distress Coding Level of Care Code 52339 Diagnoses Acute on chronic respiratory failure with hypoxia and hypercapnia J96.21; J96.22 Documented by User: Gentry Syed MD 05/30/25 15:24 Providers/Chief Complaint Chief Complaint: afib, weakness History of Present Illness Lauren Jose is a 79 year old female brought to ED via EMS from [facility] for generalized weakness. ED Triage note reports patient was in atrial fibrillation rapid ventricular rate when EMS arrived but rate had corrected to below 100 bpm without intervention. EMS noted she has a DNR to allow natural . Her history is significant for atrial fibrillation, congestive heart failure, type 2 diabetes mellitus, hypertension, gastroesophageal reflux disease, chronic obstructive pulmonary disease, cerebral vascular accident, NSTEMI, and anemia. She has a previous 2 day admission at [facility] on 05/08/25 for diverticulitis where she was found to have acute blood loss anemia and was transfused to stable hemoglobin of 7.5. Her Eliquis was held during this visit due to lower GI bleeding and discharged with follow up colonoscopy at 6 weeks. She was alert and oriented x3 and in no distress breathing with 2-3L by nasal cannula at time of discharge. In the ED, she is somnolent and mildly confused but is oriented to person, place, and year. She is currently on a BIPAP mask after 4L NC. She can answer questions, but it is difficult to understand her answers due to her mumbling and speaking softly. She does not know why she is in the hospital. She reports pain in her left leg and burning pain in her stomach. Review of systems is positive for cough and dysuria. She denies fever, chills, weight loss, nausea, vomiting, diarrhea, constipation, rashes, nor chest pain. Medications/Allergies Home Medications ?Medication ?Instructions ?Recorded ?Confirmed ?Last Taken ?Type atorvastatin 20 mg tablet (Lipitor) 20 mg PO BEDTIME 09/30/19 05/30/25 05/29/25 History acetaminophen 325 mg tablet 650 mg PO QID Pain 08/22/20 05/30/25 05/29/25 History (Tylenol) buspirone 10 mg tablet 10 mg PO BID 12/13/20 05/30/25 05/29/25 History albuterol sulfate 90 mcg/actuation 1 puff inhalation Q4H PRN Wheezing 08/21/23 05/30/25 02/12/25 History aerosol inhaler bisacodyl 10 mg rectal suppository 10 mg IL DAILY PRN Constipation 10/08/23 05/30/25 Unknown History isosorbide mononitrate 30 mg 30 mg PO DAILY 10/08/23 05/30/25 05/29/25 History tablet,extended release 24 hr magnesium hydroxide 400 mg/5 mL 30 ml PO DAILY PRN Constipation 10/08/23 05/30/25 08/21/24 History oral suspension (Milk of Magnesia) sodium phosphates 19 gram-7 118 ml IL DAILY PRN Constipation 10/08/23 05/30/25 Unknown History gram/118 mL enema (Fleet Enema) amlodipine 10 mg tablet 10 mg PO DAILY #60 tabs 10/10/23 05/30/25 05/29/25 Rx dicyclomine 20 mg tablet 20 mg PO Q8H PRN Diarrhea 10/27/23 05/30/25 05/07/25 10:55 History guaifenesin 100 mg/5 mL oral liquid 200 mg PO Q4H PRN Cough 10/23/24 05/30/25 05/04/25 16:45 History loratadine 10 mg tablet 10 mg PO DAILY 10/23/24 05/30/25 05/29/25 History ondansetron 4 mg disintegrating 4 mg PO Q4H PRN Nausea 10/23/24 05/30/25 05/07/25 13:15 History tablet tizanidine 2 mg capsule 2 mg PO Q8H PRN Muscle Spasm 12/21/24 05/30/25 05/07/25 10:55 History albuterol sulfate 2.5 mg/3 mL 2.5 mg inhalation Q12H PRN Wheezing 02/12/25 05/30/25 05/07/25 16:20 History (0.083 %) solution for nebulization arformoterol 15 mcg/2 mL solution 15 mcg inhalation BID 02/12/25 05/30/25 05/29/25 History for nebulization budesonide 1 mg/2 mL suspension 1 mg inhalation BID 02/12/25 05/30/25 05/29/25 History for nebulization dulaglutide 1.5 mg/0.5 mL 1.5 mg SUBCUT Q7D 02/12/25 05/30/25 05/25/25 History subcutaneous pen injector (Trulicity) lisinopril 20 mg tablet 10 mg (1/2 x 20 mg) PO DAILY #30 02/16/25 05/30/25 05/29/25 Rx tabs pantoprazole 40 mg tablet,delayed 40 mg PO DAILY #30 tabs 02/16/25 05/30/25 05/29/25 Rx release (Protonix) carvedilol 6.25 mg tablet 6.5 mg PO BID 05/08/25 05/30/25 05/29/25 History duloxetine 60 mg capsule,delayed 60 mg PO DAILY 05/08/25 05/30/25 05/29/25 History release Held on 05/10/25. Instructions: Resume on 05/16/25. insulin glargine 100 unit/mL 20 unit SUBCUT BEDTIME 05/08/25 05/30/25 05/29/25 History subcutaneous solution (Lantus U-100 Insulin) magnesium oxide 400 mg (241.3 mg 200 mg PO BID 05/08/25 05/30/25 05/29/25 History magnesium) tablet (MagOx) menthol 4 % topical gel (Biofreeze 1 applic topical Q8H PRN Pain 05/08/25 05/30/25 Unknown History (menthol)) tiotropium bromide 2.5 1 inh inhalation DAILY 05/08/25 05/30/25 05/29/25 History mcg/actuation mist for inhalation (Spiriva Respimat) levothyroxine 50 mcg tablet 50 mcg PO QAM 05/26/25 05/30/25 05/30/25 History ascorbic acid (vitamin C) 500 mg 500 mg PO DAILY 05/30/25 05/30/25 05/29/25 History tablet (Vitamin C) ferrous sulfate 325 mg (65 mg 325 mg PO BID 05/30/25 05/30/25 05/29/25 History iron) tablet furosemide 40 mg tablet 40 mg PO BID 05/30/25 05/30/25 05/29/25 History hydralazine 50 mg tablet 50 mg PO QID 05/30/25 05/30/25 05/29/25 History tramadol 50 mg tablet 50 mg PO Q4H PRN Pain 05/30/25 05/30/25 Unknown History zinc oxide 20 % topical paste See Rx Instructions .Route .COMPLEX 05/30/25 05/30/25 Unknown History Allergies Allergy/AdvReac Type Severity Reaction Status Date / Time No Known Allergies Allergy Verified 12/21/24 08:12 PFSH Acute PFSH: Medical History Heart failure with improved ejection fraction (HFimpEF) Bradycardia Hyperkalemia Anemia Acute diverticulitis Heart block AV third degree Obesity hypoventilation syndrome Hyperkalemia Morbid obesity Acute respiratory failure with hypoxia and hypercapnia Shortness of breath Acute kidney injury Chronic CHF (congestive heart failure) Hypokalemia Hypomagnesemia Torsades de pointes Diarrhea Takotsubo cardiomyopathy Gastritis Blood in stool Acute HFrEF (heart failure with reduced ejection fraction) HFrEF (heart failure with reduced ejection fraction) Stress-induced cardiomyopathy Diabetes Hypertension Non-ST elevation OR (NSTEMI) History of cerebrovascular accident COPD (chronic obstructive pulmonary disease) Hypertension Depression with anxiety History of GI bleed GERD (gastroesophageal reflux disease) Diabetes CVA (cerebral vascular accident) COPD (chronic obstructive pulmonary disease) Carpal tunnel syndrome on both sides Opioid contract exists Encounter for long-term use of opiate analgesic Chronic radicular low back pain Smokeless tobacco use Low back pain Surgical History History of esophagogastroduodenoscopy (EGD) (~11/2020) History of colonoscopy (~11/2020) H/O knee surgery History of knee replacement History of lumbar surgery Also history of spinal cord stimulator, currently not functioning History of shoulder surgery Family History Other CAD (coronary artery disease) Diverticulitis Hypertension Stroke Denies family history of Anesthesia complication Bleeding disorder Social History Smoking and tobacco/nicotine status: former use of tobacco/nicotine Quit status (tobacco/nicotine): has quit using Year quit tobacco: 2012 Former quit date comment: 2ppd X 48 years Alcohol intake: never Substance/Drug Use: never Housing: Alf Data 05/30/25 13:58 05/30/25 06:29 A&P Assessment and plan 1. Acute on chronic respiratory failure with hypoxia and hypercapnia: Plan: Problem List 1. Dyspnea 2. Somnolence and lethargy 3. Chronic pain Differential diagnosis: COPD exacerbation, hypovolemia, thromboembolism, community-acquired pneumonia, medication induced delirium. Assessment and Plan 1. Acute hypoxic respiratory failure - patient has a long history of COPD requiring 2-3L O2 at baseline. Currently on BIPAP. Possible acute insult to existing chronic lung disease may be responsible for patient's current status. - Hypercapnic respiratory acidosis seen worsening on two separate ABGs. Patient switched to average volume assured pressure support (AVAPS) mode on BIPAP. Patient is tolerating AVAPS mode well. Will monitor and assess if she improves. - Patient has an Allow Natural order with her daughter as DPGABO. - Will order respiratory viral panel For influenza and COVID-19. - CT angiogram reveals no pulmonary embolism. 2. Altered mental status. -Patient ABG taken in the emergency department shows mild respiratory acidosis with hypercapnia which may be causing AMS. -may also be due to presence of medication side effects. Will hold offending medications. - Will assess fluid status. Weighing risk of dehydration against risk of fluid overload. Will hold fluids for now due to presence of cardiomegaly found on chest x-ray. -Urinalysis assessed in ED shows no signs of UTI. -Chest x-ray shows no acute infiltrate nor signs of lobar pneumonia. 3. Aspiration precautions - Ordered diet is clear liquids only due to aspiration risk. 4. Thromboembolism and bleeding risk - Patient has atrial fibrillation and previous cerebrovascular accident. She was previously anticoagulated with Eliquis, but this was withheld due to acute blood loss anemia found evidence of GI bleed. - Will give heparin prophylaxis for DVT risk. Will follow up with Duplex US of lower extremities. Plan to assess hemoglobin every 6 hours for evidence of bleed. - Will administer methylprednisolone for treatment of acute COPD exacerbation. Will also administer pantoprazole to reduce risk of gastritis induced bleed. 5. Diabetes, insulin dependent - Will reduce basal insulin dose. - Patient is on clear liquid diet. 6. Atrial fibrillation RVR - Patient stable with no other episodes of A-fib RVR. Will monitor with telemetry in cardiac stepdown and rate control as needed. 7. Chronic anemia -Patient has chronic anemia with hemoglobin around 7-8. Transfuse if hemoglobin less than 7. 8. Follow-up - Patient has follow-up for diverticulitis and GI bleed with colonoscopy in 3 weeks with general surgery. Sergio Casiano, MS3 Patient seen and examined independently and findings were discussed and above the condition discussed with medical student. Agree with the findings. This is a 79-year-old female with a history of congestive heart failure (CHF) and Takotsubo, anemia, heart block, atrial fibrillation previously on anticoagulation (held due to acute blood loss anemia), recent admission for diverticulitis (pending surgical assessment for colonoscopy after recovery), cerebrovascular accident (CVA), gastroesophageal reflux disease (GERD), chronic cough, and chronic obstructive pulmonary disease (COPD) on baseline ~3 liters of oxygen. Reported by family to be short of breath and was brought in from a senior living due to generalized weakness. She was reported to be in atrial fibrillation with rapid ventricular response (RVR) initially; heart rate later improved to below 100 beats per minute. Complains of left foot pain, described as hurting all the time. Reports burning sensation in the belly/stomach area; timing around eating is unclear. Denies choking on food or drink when eating; vomiting history is unclear (at one point denied, elsewhere unclear). Reports mild burning with urination. Last bowel movement was last night; diarrhea status not clearly stated. Endorses cough; phlegm production is inconsistently reported (patient states no sputum production). Typically uses bilevel positive airway pressure (BiPAP) when sleeping; currently on BiPAP support. PE Orientation: able to state name (attempted), date (April 27, 2025), and location (hospital). - Somnolent, wakes up to voice. Follows some basic commands. Not always. Requiring coaching. - Noted asterixis - Difficult to assess for any JVD-, none obvious - card: no MRG - pulm: mild-mod diminished lung sounds Without adventitious sounds. - abdo: soft, benign. No skin lesions/blisters/rash on the left flank/left lower chest/left lower quadrant area. - Skin: no rash on the reported painful side; small red patch on foot with dryness consistent with numular eczema-like appearance; no large area of cellulitis observed - Extremities: no swelling of the painful foot; moving foot spontaneously - Neuro: oriented to date and hospital. Smonolent. Asterixis. No facial droop. Appears to be moving all extremities, but does not follow directions well. Acute on chronic respiratory failure with hypoxia and hypercapnia secondary to severe exacerbation of COPD with respiratory acidosis hypercapnic encephalopathy, hypoxic. Complicated by likely underlying obesity hypoventilation syndrome. Complicated by suspected underlying pulmonary hypertension. Obtained D-dimer noted abnormal reassessed for possible PE with recent need for discontinuation of anticoagulation. Continue BiPAP, switched to AVAPS after initial worsening respiratory failure hypercapnia, respiratory acidosis, ABG repeated, appears to be responding to treatment. Reviewed vitals, CBC, D-dimer, ABG, CMP, troponin, procalcitonin, CRP, requesting TSH, reviewed respiratory viral panel UA chest x-ray, CTA requested, reviewed. EKG. ED provider note, discussed with provider. COPD exacerbation : Continuous on BiPAP support; settings adjusted to average volume-assured pressure support (AVAPS) due to persistent hypercapnia. Mild respiratory acidosis noted. No obvious infiltrate on CT angiogram (CTA) chest; possible mild pulmonary edema; moderate cardiomegaly. Viral studies negative for influenza, COVID-19, respiratory syncytial virus (RSV) by nasal PCR. No antibiotics at current time, without productive cough, with unremarkable procalcitonin. Reassess. - Treat with low-dose intravenous (IV) corticosteroid (start with lower dose due to recent GI bleeding; suspected lower GI bleed). - Administer IV proton pump inhibitor (PPI) twice daily. - Continue breathing treatments. - Provide oxygen support with target oxygen saturation 88?92% and avoid hyperoxia. - Repeat arterial blood gas (ABG) after switching to AVAPS (requested a couple of hours ago). - Collect sputum culture if able. - Review viral studies (noted negative for flu/COVID/RSV). Acute metabolic encephalopathy with hypercapnia and hypoxia : Acute mental status changes in the setting of hypercapnia and hypoxia; no suggestion of acute infection; urinalysis (UA) without evidence of urinary tract infection (UTI); viral studies pending/negative as noted. - Hold any potentially contributing home medications. - Aspiration precautions. - Clear liquids only for now. Atrial fibrillation with prior rapid ventricular response (RVR), now rate improved : Initially reported atrial fibrillation with RVR; heart rate improved to below 100 bpm. D-dimer 1.04; CTA chest without pulmonary embolism (PE). Anticoagulation previously discontinued due to acute blood loss anemia. - Monitor heart rate and rhythm. - No new anticoagulation initiated due to anemia (context referenced elsewhere). Left foot pain : Persistent left foot pain; exam shows small red patch and dryness without swelling or large area of cellulitis; moving the foot. - Assess for comfort needs as needed. Abdominal burning pain : Reports burning sensation in the belly/stomach area; timing in relation to eating is unclear. - Administer IV PPI twice daily (also for GI protection given recent GI bleed). Anemia (hemoglobin 7) : Repeat hemoglobin noted at 7; no active bleeding reported; recent GI bleeding with diverticulitis. Possibly dilutional; follow-up labs planned. - Reassess hemoglobin later tonight and in the morning. - Hold heparin. - Sequential compression devices (SCDs) only for deep vein thrombosis (DVT) prophylaxis for now. - If hemoglobin drops below 7, hold a unit of packed red blood cells (PRBC) for type and crossmatch. Requested. History of diverticulitis with recent gastrointestinal bleeding : Recent admission for diverticulitis; suspected lower GI bleed; pending surgical assessment for colonoscopy after recovery. - Use IV PPI twice daily. - Avoid high-dose steroids; use lower dose due to recent GI bleeding. Hypothyroidism : Known hypothyroidism; evaluation to assess contribution to hypoventilation. - Check thyroid-stimulating hormone (TSH). Diabetes mellitus : Anticipated limited oral intake; insulin regimen adjusted. - Reduce insulin glargine (Lantus) dose to 12 units. - Continue sliding scale insulin. - Monitor nlnem-hw-dhoe (POC) glucose. - Monitor for risk of hypoglycemia. Hypertension : Blood pressures to be monitored. - Monitor blood pressure. CHF (not in clear exacerbation) : History of chronic diastolic CHF, Takotsubo cardiomyopathy proceeding with at that time reduced ejection fraction; current volume status difficult to determine; clinically not fluid overloaded; CTA suggests possible mild pulmonary edema. - Hold furosemide (Lasix) for now. - Avoid intravenous fluids. - Monitor intake and output, weights Gentry Syed MD PDMP PDMP Reviewed: Not Reviewed Attestations Medical Necessity Statement*: Admission of over 2 midnights is anticipated for assessment of management of acute respiratory failure and management of respiratory distress with exacerbation of COPD, underlying cavities, acute encephalopathy, acute anemia, additional problems as above. Diagnoses Acute on chronic respiratory failure with hypoxia and hypercapnia J96.21; J96.22
[2025-05-30] MEDS: iohexol 350 mg/mL 500 mL Btl (per mL) IV (12:54)
--- NOTE | 2025-05-30 12:59 | ECG_ITS ---
[facility] Test Date: 2025-05-30 Pat Name: Lauren Jose Department: Room: Gender: Female [employer] Administrator: : 1945 Requested By: Manny Gabriel Order Number: [id number] Olga MD: JAY SINHA Measurements Intervals Ironside Rate: 103 P: 0 MD: 0 QRS: 55 QRSD: 109 T: 90 QT: 330 QTc: 434 Interpretive Statements ATRIAL FIBRILLATION WITH RAPID VENTRICULAR RESPONSE LOW QRS VOLTAGE IN EXTREMITY LEADS [QRS DEFLECTION < 0.5 mV IN LIMB LEADS] ANTEROSEPTAL MYOCARDIAL INFARCTION , OF INDETERMINATE AGE [40+ ms Q WAVE IN V1-V4] Compared to ECG 05/30/2025 07:00:10 No significant changes Electronically Signed On 06-03-2025 21:13:02 CDT by AJY SINHA [email or web address]
--- NOTE | 2025-05-30 13:35 | USR_ITS ---
PROCEDURE INFORMATION: Exam: US Duplex Lower Extremity Veins, Bilateral Exam date and time: 05/30/2025 4:32 PM Age: 79 years old Clinical indication: Other: Assess for dvt TECHNIQUE: Imaging protocol: Real-time duplex ultrasound of the bilateral extremities with 2-D vieira scale, color Doppler flow and spectral waveform analysis including responses to compression and other maneuvers (when performed) with image documentation. Complete exam focused on the lower extremity veins. COMPARISON: [place] [id number] 10/10/2023 1:39 AM FINDINGS: Right deep veins: Unremarkable. The common femoral, femoral, proximal profunda femoral and popliteal veins are patent without thrombus. Normal Doppler waveforms. Normal compressibility and/or augmentation response. Left deep veins: Unremarkable. The common femoral, femoral, proximal profunda femoral and popliteal veins are patent without thrombus. Normal Doppler waveforms. Normal compressibility and/or augmentation response. Superficial veins: Greater saphenous veins at the saphenofemoral junctions are patent bilaterally without thrombus. Soft tissues: Unremarkable. US/[place] [id number] IMPRESSION: No evidence of deep vein thrombosis.
[2025-05-30 13:52] LABS: ABG PH Result 7.33 (7.35-7.45)
[2025-05-30 13:53] LABS: Troponin 5 6HR 21.06 ng/L (0-10)
[2025-05-30 13:53] LABS: ABG PCO2 72.3 mmHg (35-45); PO2 ABG 64.7 mmHg (80.0-100.0); PO2 FiO2 Ratio Arterial Blood 184
[2025-05-30 13:54] LABS: Troponin 5 6HR Delta -6.94 ng/L (0-12)
[2025-05-30 13:54] LABS: Alveolar-Arterial Oxygen Gradi 12.8 mmHg (5-10); HCO3 ABG 37.6 mmol/L (22-26); Oxygen Saturation ABG 91.8
[2025-05-30 13:55] LABS: Carboxyhemoglobin 1.8 %THgb (0.4-20.1); Glucose Level-ABG 118.0 mg/dL (70-115); Methemoglobin 0.3 % (0.4-1.5)
[2025-05-30] MEDS: pantoprazole 40 mg SDV IVP (14:03)
[2025-05-30] MEDS: heparin 5,000 unit/mL INJ 1 mL 5000 UNIT SUBCUT (14:03)
[2025-05-30 14:05] LABS: Hemoglobin 7.00 g/dL (11.27-16.99)
[2025-05-30] MEDS: methylPREDNISolone sod succ 40 mg/mL INJ 20 MG IVP ×2 (14:05→20:30)
[2025-05-30 14:13] LABS: Procalcitonin 0.09 ng/mL (0-0.5)
[2025-05-30 14:38] LABS: ABG PH Result 7.41 (7.35-7.45); Arterial Blood Gas Hematocrit 25.9 % (37-47); Blood Gas Allen Test Pos; Blood Gas Operator Identificat glc; Blood Gas Sample Site Radial, right; Blood Gas Sample Type Arterial; HCO3 ABG 39.5 mmol/L (22-26); PEEP 10.0 cmH20; PO2 ABG 82.0 mmHg (80.0-100.0); PO2 FiO2 Ratio Arterial Blood 273
[2025-05-30 14:39] LABS: ABG PCO2 63.1 mmHg (35-45)
[2025-05-30 15:06] LABS: Respiratory Syncytial Virus Ce NEGATIVE (Negative); SARS-CoV-2 PCR NEGATIVE (Negative)
[2025-05-30 15:35] LABS: Thyroid Stimulating Hormone 2.89 uIU/mL (0.27-4.20)
--- OUTSIDE RECORDS SUMMARY | 2025-05-30 17:52 | XMS_ITS | Data Portability ---
Author Organization [facility] Jennyfer, L.LJolieCJolie, ZORANAnthony [facility]IV[facility] Address [address] [place] [address] Care Team Providers Care Racing Manager Name Role Phone NAZIA JHA Primary Care [...] Note LastModifiedBy Organization Detail LastModifiedTime 02/11/2001/24/2025 , [facility] ardio gram No observ ation record ed. [email or web address] [facility] [address] [place], [address], 02/10/2025 11:58:45 Result Notes None recorded. Problems Name Problem SNOMED Code Status Onset Date Resolution Date Notes Provider Name and Address Organization Details Recorded Time Abdomina l pain 04470172 Completed 201902/06/2020 ABDOMINA L PAIN - Status is Inactive ; Recorded 02/06/20 3:27PM by Nazia Jha PA-C, Annotati on/Adden dum; Promoted ; acuity set as *; NAZIA JHA PA-C [address] [place], [address] , [place] [facility], L.L.CJolie 16:19:26 Aortic stenosis , non-rheu matic 434259888 Completed 201902/08/2020 AORTIC STENOSIS - Status is Inactive ; Recorded 02/08/20 10:06AM by Nazia Jha PA-C, Annotati on/Adden dum; Promoted ; acuity set as *; Not Available [facility] 3 03:12:50 Anemia 664694650 Completed 201902/08/2020 ANEMIA - Status is Resolved ; Resolved Date: 02/08/20; Recorded 02/08/20 10:01AM by Nazia Jha PA-C, Annotati on/Adden dum; Promoted ; acuity set as *; Not Available [facility] 3 03:12:58 Nausea 963408457 Completed 202005/07/2021 NAUSEA - Status is Inactive ; Recorded 05/07/20 4:32PM by Nazia Jha PA-C, Annotati on/Adden dum; Promoted ; acuity set as *; Not Available [facility] 3 03:12:50 Sleep disorder 89435006 Completed 202005/07/2021 SLEEPING DIFFICUL TIES - Status is Inactive ; Recorded 05/07/20 4:32PM by Nazia Jha PA-C, Annotati on/Adden dum; Promoted ; acuity set as *; Not Available [facility] 3 03:12:57 Hyperlip idemia 36687105 Active 2022 HYPERLIP IDEMIA; Recorded 09/26/19 6:15AM by Lissa John LPN, Office Visit; Promoted ; acuity set as *; NAZIA JHA PA-C [address] [place], [address] , [facility] 5 16:20:56 Severe obesity 98625158397 104 Active 2022 OBESITY, MORBID, BMI 40.0-49. 9; Recorded 09/26/19 23 6:15AM by Lissa John LPN, Office Visit; Promoted ; acuity set as *; Ty Gottlieb MD [address] [place], [address] , [facility] 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 5 16:20:56 Coronary atherosc lerosis 030099516 Active 2022 CAD (CORONAR Y ARTERY DISEASE) ; Recorded 09/26/19 6:15AM by Lissa John LPN, Office Visit; Promoted ; acuity set as *; NAZIA JHA PA-C [address] [place], [address] , [facility], L.L.CJolie 5 16:20:56 Hypomagn esemia 908164565 Active 2022 HYPOMAGN ESEMIA; Recorded 09/26/19 6:15AM by Lissa John LPN, Office Visit; Promoted ; acuity set as *; NAZIA JHA PA-C [address] [place], [address] , [facility], L.L.CJolie 5 16:20:56 Chronic systolic heart failure 962347588 Active 2022 CHRONIC SYSTOLIC CONGESTI VE HEART FAILURE; Recorded 09/26/19 6:15AM by Lissa John LPN, Office Visit; Promoted ; acuity set as *; Ty Gottlieb MD [address] [place], [address] , [facility] 5 08:47:01 Diarrhea 74824166 Active 2022 CHRONIC DIARRHEA ; Recorded 09/26/19 6:15AM by Lissa John LPN, Office Visit; Promoted ; acuity set as *; NAZIA JHA PA-C [address] [place], [address] , [facility] 5 16:20:56 Gastroes ophageal reflux disease 474082057 Active 2022 ACID REFLUX; Recorded 09/26/19 6:15AM by Lissa John LPN, Office Visit; Promoted ; acuity set as *; NAZIA JHA PA-C [address] [place], [address] , [facility] 5 16:20:56 Chronic hypercap eric respirat ory failure 193354888 Active 2022 CHRONIC RESPIRAT ORY FAILURE WITH HYPERCAP BOOGIE; Recorded 10/02/19 1:57PM by Nazia Jha PA-C, Office Visit; Promoted ; acuity set as *; NAZIA JHA PA-C [address] [place], [address] , [facility] 5 16:20:56 Neuropat hy due to type 2 diabetes mellitus 68392660009 9106 Active 2022 NEUROPAT HY, DIABETIC ; Recorded 10/02/19 1:56PM by Nazia Jha PA-C, Office Visit; Promoted ; acuity set as *; NAZIA JHA PA-C [address] [place], [address] , [facility] 5 16:20:56 Acute exacerba tion of chronic obstruct jesus manuel pulmonar y disease 053009022 Completed 202210/01/2022 COPD WITH ACUTE EXACERBA TION - Status is Inactive ; Recorded 10/02/19 1:56PM by Nazia Jha PA-C, Annotati on/Adden dum; Promoted ; acuity set as *; LISSA JOHN [facility], [facility] 10:51:53 Chronic obstruct jesus manuel pulmonar y disease 67132647 Active 2022 NAZIA JHA PA-C [address] [place] [address], [address] [place] [address] , [facility] 16:20:56 Insomnia 125556287 Active 2022 NAZIA JHA PA-C [address] [place] [address], [address] [place] [address] , [facility] 16:20:56 Depressi ve disorder 40842405 Active 2022 NAZIA JHA PA-C [address] [place] [address], [address] [place] [address] , [facility] 16:20:56 Type 2 diabetes mellitus 44266074 Active 2022 Ty Gottlieb MD [address] [place] [address], [address] , [facility] 08:47:14 Essentia l hyperten gricelda 32321145 Active 2022 Ty Gottlieb MD [address] [place] [address], [address] [place] [address] , [facility] 08:46:51 COVID-19 357080208 Completed 202209/28/2024 NAZIA JHA PA-C [address] [place] [address], [address] [place] [address] , [facility] 5 16:20:06 Diabetes mellitus 03159357 Active 2022 [facility] 5 11:25:06 Hypothyr oidism 30122641 Active 2022 NAZIA JHA PA-C [address] [place], [address] , [facility] 5 16:20:56 Generali zed headache 709702891 Active 2023 NAZIA JHA PA-C [address] [place], [address] , [facility] 5 16:20:56 Osteoart hritis 405672177 Active 2023 LISSA balderas, [facility] 5 21:03:18 Chronic kidney disease stage 3B 774158047 Active 2023 NAZIA JHA PA-C [address] [place] [address], [address] , [facility] 5 16:20:56 Thrombop hlebitis 38172336 Completed 202309/28/2024 NAZIA JHA PA-C [address] [place] [address], [address] , [facility] 5 16:20:06 Acute upper respirat ory infectio n 47296565 Completed 202309/28/2024 NAZIA JHA PA-C [address] [place] [address], [address] , [facility] 5 16:20:06 Muscle spasm of cervical muscle of neck 31054169524 4 Active 2023 NAZIA JHA PA-C [address] [place] [address], [address] , [facility] 5 16:20:56 Sebaceou s cyst of skin 153860275 Completed 202309/28/2024 NAZIA JHA PA-C [address] [place] [address], [address] , [facility] 5 16:20:06 Acute respirat ory syncytia l virus bronchit is 698002245 Completed 202309/28/2024 NAZIA JHA PA-C [address] [place], [address] , [facility] 5 16:20:06 Herpes zoster 2791316 Active 2024 NAZIA JHA PA-C [address] [place] [address], [address] , [facility] 5 16:20:56 Irregula r heart beat 150109317 Active 2024 LISSA balderas, [facility] 5 10:52:27 Anxiety 16208577 Active 2024 LISSA HAALAINA null, [facility] 5 10:52:10 Moderate chronic obstruct jesus manuel pulmonar y disease 888066088 Active 2024 LISSA DORA null, [facility] 5 10:52:32 Chronic respirat ory failure 64491723 Active 2024 LISSA HAALAINA null, [facility] 5 10:52:21 Pain of left calf 37905785213 14625 Active 2024 Ty Gottlieb MD [address] [place], [address] , [facility] 08:47:17 Generali zed edema 495063368 Active 2024 LISSA DORA null, [facility] 11:56:19 Colitis 73266117 Active 2024 Ty Gottlieb MD [address] [place] [address], [address] , [facility] 08:46:26 Anemia due to blood loss 926228635 Active 2024 Ty Gottlieb MD [address] [place] [address], [address] , [facility] 08:46:41 Asthenia 31462222 Active 2024 Ty Gottlieb MD [address] [place] [address], [address] , [facility], L.L.CJolie 12:01:38 Platelet count above referenc e range 637390074 Active 2024 LISSA balderas [facility], L.L.CJolie 10:33:21 Gastroin testinal hemorrha ge 55245560 Active 2024 LISSA balderas [facility], L.L.CJolie 10:34:31 Iron deficien cy anemia 47625872 Active 2024 LISSA JOHN [facility], L.L.CJolie 10:35:04 Problem Notes None recorded. Procedures Surgical History Date Name Laterality Status Provider Name and Address Organization Details Recorded Time 02/08/20 25 echocardiography completed NAZIA JHA PA-C [address] [place] [address], [address], [facility], L.L.CJolie 02/10/2025 11:05:14 10/25/19 21 colonoscopy completed LISSA JOHN [facility], BlaireLJolieCJolie 04/23/2023 08:24:42 09/04/19 16 bone density scan completed LISSA JOHN [facility], LJolieLCindy 04/23/2023 08:24:58 Imaging Results None recorded. Procedure Notes None recorded. Medical Equipment None Reported. Allergies Allergen ID Allergen Name Allergen Category Reaction Reaction Severity Criticality Documentation Date Start Date Code Code System Note Provider Name and Address Organization Details Recorded Time 24348 metformin hydrochlo ride medicatio n diarrhea severe high 02/28/2023 67002 3 RxNorm Jaci Pollock [facility], Jamia 4 07:52:40 Medications Name Sig Start [...] elayed release daily 07/08 completed vo KM/dh; 00344; Recorded 09/26/19 23 9:12AM by Lissa John LPN (Authori zed through Nazia Jha PA-C), Office Visit; Refill Quantity : 3; Capsule; Not Available Not Available Not Available magnesium two times daily 04/23 completed Recorded 09/26/19 9:12AM by Lissa John LPN, Office Visit; Refill Quantity : 60; Tablet; Not Available Not Available Not Available acetamino phen every six hours, as needed 04/23 completed 98608; Recorded 05/07/20 7:40AM by Lissa John LPN [...] 04/23 completed take only as needed km/dh; 41298; Recorded 08/05/19 3:54PM by Lissa John LPN (i raoul through Nazia Jha PA-C), Refill Request; Refill Quantity : 90; Tablet; Not Available Not Available Not Available albuterol sulfate every six hours, as needed 04/23 completed vo KM/dh; 51586; Recorded 10/21/19 5:03PM by Lissa John LPN [...] every twelve hours 04/23 completed vo KM/dh; 01177; Recorded 09/09/19 4:26PM by Shaan Meadows (Authori zed through Nazia Jha PA-C), Office Visit; Refill Quantity : 60; Tablet; Not Available Not Available Not Available Plavix daily 04/23 completed [facility]/ /LONG; 54639; Recorded 03/03/20 4:22PM by Lissa John LPN (Authori zed through Nazia Jha PA-C), Refill Request; Refill Quantity : 30; Tablet; Not Available Not Available Not Available lisinopri l daily 04/23 completed [facility]//sw ift; 66520; Recorded 07/11/20 2:40PM by Federico santizo (Authori zed through Nazia Jha PA-C), Office Visit; Refill Quantity : 90; Tablet; Not Available Not Available Not Available Klor-Con two times daily 04/23 completed cs/smf; 61488; Recorded 07/07/20 2:41PM by Yoli Torres RN (Authori zed through Kendall Barrow DO), Refill Request; Refill Quantity : 60; Tablet; Not Available Not Available Not Available metolazon e daily 04/23 completed [facility]/; 37435; Recorded 09/09/19 4:26PM by Shaan Meadows (Authori zed through Nazia Jha PA-C), Office Visit; Refill Quantity : 15; Tablet; Not Available Not Available Not Available Sucralfat e Suspensio n two times daily 04/23 completed [facility]/; 90929; Recorded 08/12/19 11:50AM by Lissa John LPN (Authori zed through Nazia Jha PA-C), Annotati on/Adden dum; Refill Quantity : 600; Millilit er; Not Available Not Available Not Available Lantus U-100 Insulin 10units hs 02/14 completed Not Available Not Available Not Available Trazodone at bedtime 04/23 completed vo /govind /DEWAYNE; 18018; Recorded 08/05/19 23 3:54PM by Lissa John LPN (Authori raoul through Nazia Jha PA-C), Refill Request; Refill Quantity : 30; Tablet; Not Available Not Available Not Available cephalexi n 750 mg capsule TAKE 1 CAPSULE BY MOUTH THREE TIMES DAILY 04/23 completed Not Available Not Available Not Available Januvia 50 mg tablet daily 04/23 completed vo ALY/govind /pushpa; 49784; Recorded 11/06/19 22 7:42AM by Lissa John [...] Available Anoro Ellipta daily 04/23 completed /govind; 30641; Recorded 10/21/19 23 5:03PM by Lissa John [...] Updated DateTime 5 154.94 cm 41.9 kg/m2 246318. 51 g 94 % 94 % 91 /min 20 /min 97.4 [degF] 136/74 mm[Hg] LISSA FERGUSONHOUSTON [facility], L.L.CJolie 5 10:08:15 Date Recorded Body height Body mass index (BMI) Body weight Body temperature Respiratory rate Heart rate Oxygen saturation Oxygen saturation in Arterial blood by Pulse oximetry Systolic And Diastolic Provider Name and Address Organization Details Last Updated DateTime 5 154.94 cm 42.9 kg/m2 062682. 47 g 97.1 [degF] 20 /min 75 /min 97 % 97 % 140/62 mm[Hg] [facility] L[facility] 5 12:38:44 Date Recorded Body height Body mass index (BMI) Body weight Heart rate Respiratory rate Body temperature Systolic And Diastolic Provider Name and Address Organization Details Last Updated DateTime 5 154.94 cm 44 kg/m2 687006. 02 g 73 /min 20 /min 97 [degF] 142/62 mm[Hg] [facility] 5 11:52:43 Date Recorded Body height Body mass index (BMI) Body weight Body temperature Respiratory rate Heart rate Systolic And Diastolic Provider Name and Address Organization Details Last Updated DateTime 5 154.94 cm 42.3 kg/m2 173085. 69 g 97.2 [degF] 18 /min 76 /min 138/68 mm[Hg] ALIYAH [facility], L.L.CJolie 5 10:31:50 Date Recorded Body height Body mass index (BMI) Body weight Oxygen saturation Oxygen saturation in Arterial blood by Pulse oximetry Heart rate Respiratory rate Body temperature Systolic And Diastolic Provider Name and Address Organization Details Last Updated DateTime 5 154.94 cm 43.1 kg/m2 066498. 06 g 99 % 99 % 72 /min 20 /min 97.5 [degF] 118/62 mm[Hg] LISSA JOHN [facility] 5 10:30:56 Social History Question Answer Notes LastModified by [email or web address] ion Details LastModified Time Tobacco Smoking Status Never Smoker NAZIA JHA PA-C [address] [place], [address], [facility] 04/23/2023 15:25:00 What Was The Date Of Your Most Recent Tobacco Screening? 04/23/2023 [email or web address] Information not available 04/23/2023 Has Tobacco Cessation Counseling Been Provided? Yes [email or web address] Information not available 04/23/2023 On What Date Was Tobacco Cessation Counseling Provided? 04/22/2023 [email or web address] Information not available 04/23/2023 How Many Years Have You Used Smokeless Tobacco? 50 [email or web address] Information not available 04/23/2023 Sex: Unknown Functional Status Question Answer Note LastModified by Claro Details LastModified Time Do you or have you ever used any other forms of tobacco or nicotine? Yes [email or web address] Information not available 04/23/2023 What is your level of alcohol consumption? None [email or web address] Information not available 04/23/2023 Do you or have you ever used smokeless tobacco? Current snuff user [email or web address] Information not available 04/23/2023 Do you or have you ever used e-cigarettes or vape? Never used electronic cigarettes [email or web address] Information not available 04/23/2023 Mental Status None [...] zoster recombinant 0 completed NAZIA JHA PA-C [address] [place], [address], [facility], L.LJolieC. 04/23/2023 12:56:21 Influenza, high-dose, quadrivalent, PF 0 completed NAZIA JHA PA-C [address] [place], [address], [facility], LJolieLJolieC. 04/23/2023 12:56:21 Pneumococcal conjugate PCV 13 5 completed NAZIA JHA PA-C [address] [place], [address], [facility], BlaireLJolieCJolie 04/23/2023 12:56:21 Influenza, adjuvanted, quadrivalent, PF 3 completed NAZIA JHA PA-C [address] [place], [address], [facility], LJolieLJolieC. 04/23/2023 15:22:00 zoster recombinant 0 completed NAZIA JHA PA-C [address] [place], [address], [facility], LJolieLJolieC. 04/23/2023 12:56:21 Tdap 0 completed NAZIA JHA PA-C [address] [place], [address], [facility], LJolieLJolieC. 04/23/2023 12:56:21 Tdap 6 completed Not Available [facility] 09/23/2023 10:50:53 Influenza, split virus, trivalent, preservative 3 completed Not Available [facility] 09/23/2023 10:50:53 pneumococcal polysaccharide PPV23 3 completed Not Available [facility] 09/23/2023 10:50:53 Influenza, split virus, trivalent, preservative 6 completed Not Available [facility] 09/23/2023 10:50:53 Past Encounters Encounter ID Performer Location Encounter Start Date Encounter Closed Date Diagnosis/Indication Diagnosis SNOMED-CT Code Diagnosis ICD10 Code Diagnosis IMO Codes Diagnosis Note [id number] NAZIA JHA PA-C [facility] ([facility]) [address] [place] [id number] 04/23/2023 11:32:36 04/23/2023 16:04:22 Dry eyes 719088877 H04.121 Chronic ob structive pulmonary disease 49503712 J44.9 Needs infl uenza immunization 257341040 Z28.39 Chronic diarrhea 9298327 09 K52.9 Chronic sy stolic heart failure 255796575 I50.22 Hyperglycemia 38091769 R 73.9 Adult heal th examination 252635281 Z00.00 [id number] NAZIA JHA PA-C [facility] ([facility]) [address] [place] [id number] 07/08/2023 12:48:03 07/27/2023 08:17:17 Diabetes mellitus 24935693 E11.9 discharge records and meds reviewed. labs and vitals reviewed. Type 2 [place] bet[place] mellitus 08991521 E11.9 d/c humalog start lantus 10units at hs Essential hypertension 56172842 I10 COVID-19 658192658 U07.1 Acute resp iratory failure 66045550 J96.00 [id number] Ty Gottlieb MD [facility] ([facility]) [address] [place] [id number] 07/15/2023 09:21:48 07/15/2023 14:13:24 Need for personal care assistance [id number] 6987409 Z74.1 Lives in senior living 16 8716087 Z76.89 Chronic hy percapnic respiratory failure 030605161 J96.12 Chronic sy stolic heart failure 580317298 I50.22 Coronary atherosclerosis 462537667 I25.10 Diabetes mellitus 111911 09 E11.9 recent A1c was 7.3. Hypertensive disorder 38 104480 I10 Hypothyroidism 99780805 E03.9 [id number] Ty Gottlieb MD [facility] ([facility]) [address] [place] [id number] 5 08/12/2023 07:45:19 08/16/2023 20:52:55 Need for personal care assistance [id number] 9687702 Z74.1 Lives in senior living 16 0772600 Z76.89 Chronic hy percapnic respiratory failure 547774118 J96.12 Chronic ob structive pulmonary disease 78660145 J44.9 Chronic sy stolic heart failure 987353934 I50.22 stable at present Diabetes mellitus 504932 09 E11.9 recent A1c was 7.3. Essential hypertension 27577242 I10 Headache 52811654 R51.9 [id number] Ty Gottlieb MD [facility] ([facility]) [address] [place], [place] [id number] 5 09/16/2023 07:48:29 09/16/2023 18:30:41 Need for personal care assistance [id number] 5158086 Z74.1 Pt. Not seen today Lives in senior living 16 0467215 Z76.89 [id number] Ty Gottlieb MD [facility] ([facility]) [address] [place] [address] 5 09/17/2023 07:51:53 09/21/2023 09:35:34 Need for personal care assistance [id number] 6572456 Z74.1 Lives in senior living 16 7791195 Z76.89 Neuropathy due to type 2 diabetes mellitus 5998202210 73547 E11.40 Severe obesity 821222183 1 9104 E66.01 Type 2 [place] betes mellitus 19740423 E11.9 Abdominal pain 40021618 R10.9 possible constipati on with loose stools or gastropare sis. KUB xray was ordered. [id number] NAZIA JHA PA-C [facility] ([facility]) [address] [place] [id number] 5 09/23/2023 10:50:46 10/10/2023 19:12:48 Diabetes mellitus 05775835 E11.9 CBC/CMP/A1 C Q 3 MONTHS TSH AND LIPIDS Q 6 MONTHS Headache 88632154 R51.9 NICOTINE PATCH 21MG X 4 WEEKS 14MG QD X 2 WEEKS AND 7MG X 2 WEEKS [id number] NAZIA JHA PA-C [facility] ([facility]) [address] [place] [id number] 5 09/30/2023 12:10:47 10/10/2023 22:03:33 Hyperkalemia 07026726 E87.5 d/c chlorthali done and tizanidine ,BMP one weekdecrea se mag 200mg qd, Headache 10646741 R51.9 pt thinks nicotiene patch is making POWER worse. d/c nicotine patch [id number] NAZIA JHA PA-C [facility] ([facility]) [address] [place] [id number] 5 10/07/2023 10:31:49 10/11/2023 20:18:42 Generalized headache 582498392 R51.9 pt/ot biofreeze, tramadol 50mg po qd prn Diabetic p eripheral neuropathy 010062188 E11.40 CCA form filled out during today's office visit Type 2 [place] betes mellitus 61472736 E11.69 Body mass index 40+ - severely obese 692796575 Z68.41 Coronary arteriosclerosis 11053682 I25.10 Essential hypertension 37516774 I10 Chronic ob structive pulmonary disease 53311454 J44.9 trelegy Abnormal gait 91207032 R 26.2 Dependence on enabling machine or device 257415952 Z99.89 Impaired mobility 861728 05 Z74.09 [id number] NAZIA JHA PA-C [facility] ([facility]) [address] [place] [id number] 5 10/21/2023 10:44:31 11/09/2023 09:46:35 Chronic kidney disease stage 3B 058873133 N18.32 Hyperkalemia 69759660 E8 7.5 cbc/bmp/ma g Thrombophlebitis 5006818 1 I80.9 right elbow wound care and silvaddene cream. Wound care team will start seeing her next week. Hospital i npatient stay within past 30 days [id number] 106 Z76.89 [id number] NAZIA JHA PA-C [facility] ([facility]) [address] [place] [id number] 5 10/28/2023 15:29:13 11/13/2023 17:13:59 Diabetes mellitus 50043949 E11.9 cbg bid Headache 38521791 R51.9 Hypomagnesemia 519860097 E83.42 vitals every day Dysphagia 33164236 R13.[address]/pt/bmp/ mg tomorrow [id number] Ty Gottlieb MD [facility] [facility]) [address] [place] [address] [phone] 5 11/04/2023 07:56:22 11/04/2023 18:02:13 Need for personal care assistance [phone] [id number] Z74.1 Lives in senior living 16 1925359 Z76.89 Depressive disorder 3548 9007 F32.A Diabetes mellitus 573717 09 E11.9 recent A1c was 7.3. Essential hypertension 08514338 I10 Peripheral circulatory disorder due to type 2 diabetes mellitus 408438339 E11.59 Pain of ri ght shoulder joint [id number] 7601579 M25.511 Unsure if fractured or just arthritic and spasm. Will check xray. [id number] NAZIA JHA PA-C [facility] ([facility]) [address] [place] [address] [phone] 5 11/11/2023 13:21:29 11/27/2023 14:34:29 Congestive heart failure 11338112 I50.9 LISINOPRIL 10MG QD, COREG 3.125MG BID MG AND BMPrestart meds that were stoppd due to abnormal K at last hospitaliz ation [id number] Ty Gottlieb MD [facility] ([facility]) [address] [place] [address] [phone] 5 01/13/2024 09:12:41 01/13/2024 17:07:01 Need for personal care assistance [phone] Z74.1 Lives in senior living 16 1299673 Z76.89 Chronic hy percapnic respiratory failure 621185873 J96.12 Chronic ki dney disease stage 3B 976725695 N18.32 Chronic ob structive pulmonary disease 14139403 J44.9 Essential hypertension 22786102 I10 [id number] NAZIA JHA PA-C [facility] ([facility]) [address] [place] [address] [phone] 5 01/20/2024 13:35:09 02/08/2024 07:06:36 Acute upper respiratory infection 42310902 J06.9 doxycyclin e 100mg bid x 7 dayspromet hazine dm 1 tsp q 6 hours prn x 7 daysMOnito r and report any decline in condition [id number] Ty Gottlieb MD [facility] ([facility]) [address] [place] [address] [phone] 5 03/23/2024 08:09:18 03/28/2024 11:24:38 Muscle spasm of cervical muscle of neck 0061072325 04 M62.838 Will get a PT eval and treat order for her neck pain and spasm. Hypertensive disorder 38 440324 I10 Headache 52305648 R51.9 Need for p ersonal care assistance [phone] 9353411 Z74.1 Lives in senior living 16 3723483 Z76.89 [id number] NAZIA JHA PA-C [facility] ([facility]) [address] [place] [address] [phone] 5 04/20/2024 11:55:49 05/01/2024 21:49:40 Sebaceous cyst of skin 284604578 L72.3 I AND D NEXT WEEK if not improved. [id number] Ty Gottlieb MD [facility] ([facility]) [address] [place] [address] [phone] 5 05/04/2024 11:40:31 05/09/2024 11:55:46 Need for personal care assistance [id number] Z74.1 Lives in senior living 16 3303029 Z76.89 Chronic ki dney disease stage 3B 421767693 N18.32 Diabetes mellitus 376159 09 E11.9 Essential hypertension 92808816 I10 Muscle spa sm of cervical muscle of neck 5629055237 04 M62.838 Continue present management . Osteoarthritis 495682707 M19.90 Chronic ob structive pulmonary disease 40740346 J44.9 stable. [id number] NAZIA JHA PA-C [facility] ([facility]) [address] [place] [address] [phone] 5 05/11/2024 12:20:50 06/05/2024 22:17:10 Diabetes mellitus 07951317 E11.9 CMP/MG/A1C TRULICITY .75MG SC WEEKLY Essential hypertension 40437414 I10 LISINOPRIL 20MG QD, COREG 6.25MG BID Chronic ob structive pulmonary disease 53432514 J44.9 trelegy [id number] NAZIA JHA PA-C [facility] ([facility]) [address] [place] [address] [phone] 5 07/06/2024 12:08:59 07/31/2024 07:56:21 Neck pain 64246299 M54.2 PT,CYCLOBE NZAPRINE 5MG 1 PO QD PRNshe already gets Tramadol routinely. [id number] Ty Gottlieb MD [facility] ([facility]) [address] [place] [address] [phone] 5 07/13/2024 08:03:48 07/15/2024 08:09:54 Need for personal care assistance [phone] Z74.1 Lives in senior living 16 8903961 Z76.89 Chronic ki dney disease stage 3B 214495674 N18.32 Chronic ob structive pulmonary disease 66619415 J44.9 stable. Essential hypertension 49735087 I10 Headache 35664215 R51.9 chronic Peripheral circulatory disorder due to type 2 diabetes mellitus 914901750 E11.59 [id number] NAZIA JHA PA-C [facility] ([facility]) [address] [place] [address] [phone] 5 07/20/2024 10:37:27 08/16/2024 08:15:53 Chronic obstructive pulmonary disease 09633074 J44.9 prednisone 40mg x 5 days, duo nebs qid x 7 days then back to bid. Acute resp iratory syncytial virus bronchitis 322109086 J20.5 monitor. ER records reviewed. notify MD or send ER if any s/s of respirator y decline [id number] NAZIA JHA PA-C [facility] ([facility]) [address] [place] [address] [phone] 5 08/10/2024 10:33:56 08/26/2024 16:10:02 Herpes zoster 5004649 B02.9 valcyclovi r 1000mg tid [id number] Ty Gottlieb MD [facility] ([facility]) [address] [place] [address] [phone] 5 09/14/2024 09:24:12 09/16/2024 07:26:55 Need for personal care assistance [phone] [id number] Z74.1 Lives in senior living 16 7188201 Z76.89 Acute resp iratory failure 53862675 J96.00 greatly imoroved. Chronic ki dney disease stage 3B 043528618 N18.32 Chronic ob structive pulmonary disease 99119859 J44.9 stable. Recent RSV, doing better now. [id number] NAZIA JHA PA-C [facility] ([facility]) [address] [place] [address] [phone] 5 09/28/2024 10:42:33 09/28/2024 16:26:45 Adult health examination 816647709 Z00.00 H&P pt labs and meds and vitals are reviewed. Her BP and A1C and lipid are all at goalShe is stable Diabetes mellitus 288096 09 E11.9 A1C 6.3 Neck pain 67840774 M54.2 TRAZADONE 50MG AT HS PRN X 14 DAYS Hyperkalemia 78961738 E8 7.5 REPEAT K+ 5.4 IN 2 WEEKS WITH MG Chronic sy stolic heart failure 111550512 I50.22 Chronic ob structive pulmonary disease 63152014 J44.9 Chronic ki dney disease stage 3B 569730885 N18.32 Chronic hy percapnic respiratory failure 958980321 J96.12 Coronary atherosclerosis 357832662 I25.10 Depressive disorder 3548 9007 F32.A Essential hypertension 07722226 I10 LISINOPRIL 20MG QD, COREG 6.25MG BID Hyperlipidemia 38163685 E78.5 Hypothyroidism 96059718 E03.9 Insomnia 779071097 G47.0 0 Neuropathy due to type 2 diabetes mellitus 5141124759 16968 E11.40 Severe obesity 757650722 1 9104 E66.01 Type 2 [place] betes mellitus 57530468 E11.69 Body mass index 40+ - severely obese 573255672 Z68.42 [id number] NAZIA JHA PA-C [facility] ([facility]) [address] [place] [address] [phone] 5 10/26/2024 10:59:11 10/26/2024 16:46:46 Pneumonia 598370175 J18.9 ON LEVAQUIN Post-disch arge follow-up 556025103 Z09 med records reviewed and meds reconciled . Irregular heart beat 361 203982 R00.8 CBC/BMP/MA G/ EKG / 3 day HOLTERD/C TRAZODONE AND CYCLOBENZA MANNIE Chronic ob structive pulmonary disease 52754133 J44.9 Difficulty walking 72952 2003 R26.2 CCA form filled out during today's office visit Impaired mobility 380721 05 Z74.09 Dependence on wheel chair 857815906 Z99.3 Long-term oxygen therapy 033018928 Z99.81 Mood disorder 73617332 F 33.2 [id number] NAZIA JHA PA-C [facility] ([facility]) [address] [place] [address] [phone] 5 11/02/2024 10:49:13 11/05/2024 06:20:38 Acute kidney injury 58300232 N17.9 cr improved 1.86 to 1.8 increase in k+ baseline is .8cbc/bmp/ mg in 1 week [id number] Ty Gottlieb MD [facility] ([facility]) [address] [place] [address] [phone] 5 11/16/2024 08:13:35 11/16/2024 23:01:47 Chronic obstructive pulmonary disease 15277378 J44.9 stable. Will add BID albuterol nebulizers for now with QID prn. Chronic sy stolic heart failure 286211027 I50.22 stable at present Diabetes mellitus 640647 09 E11.9 Essential hypertension 16976877 I10 Muscle spa sm of cervical muscle of neck 4910680364 04 M62.838 Continue present management . Osteoarthritis 533437115 M19.90 [facility] [phone] [id number] Z74.1 Lives in senior living 16 2321376 Z76.89 [id number] NZAIA JHA PA-C [facility] ([facility]) [address] [place] [address] [phone] 5 12/07/2024 10:57:36 12/23/2024 16:57:33 Anxiety 17222436 F41.9 53499 CYMBALTA 60MG QD Pt always wants more meds to sleep. last time I added tranzadone she had acute delirium and ended up in the hospital. Diabetes mellitus 673933 09 E11.9 INCREASE TRULICITY 1.5MG Q WEEKLY Pain 94148247 R52 785650 TIZANADINE 2MG Q 8 HOURS PRN [id number] NAZIA JHA PA-C [facility] ([facility]) [address] [place] [address] [phone] 5 12/28/2024 10:37:08 01/09/2025 10:24:16 Acute exacerbation of chronic obstructive pulmonary disease 838756111 J44.1 903639 doxy 100mg po bid x 7 d and prednisone 40 mg po qd x 5dshe has neb tx tid already.mo nitor for worsening s/s of respirator y distress [id number] Ty Gottlieb MD [facility] ([facility]) [address] [place] [address] [phone] 5 01/11/2025 08:38:17 01/13/2025 09:16:55 Lives in senior living 890419579 Z78.9 [id number] Need for p [facility] care assistance [phone] 3466589 Z74.1 [id number] Chronic ki dney disease stage 3B 889583005 N18.32 Chronic hy percapnic respiratory failure 320868026 J96.12 Chronic sy stolic heart failure 137870926 I50.22 stable at present Coronary atherosclerosis 564812629 I25.10 Diabetes mellitus 441348 09 E11.9 Essential hypertension 61683210 I10 [id number] NAZIA JHA PA-C [facility] ([facility]) [address] [place] [address] [phone] 5 02/08/2025 10:24:56 02/28/2025 14:46:20 Moderate chronic obstructive pulmonary disease 484888115 J44.9 495745 prednisone 40mg qd x 5 days,d/c trelegy start budosenide 1mg bid per neb and formotorol 15mcg bid pr neb, yulperi 175mg qd per neb Diabetes mellitus 649858 09 E11.9 27044 Continue to monitor sugars and A1C . ON trulicity. [id number] NAZIA JHA PA-C [facility] ([facility]) [address] [place] [address] [phone] 5 02/22/2025 10:01:41 03/01/2025 17:41:07 Chronic respiratory failure 40460895 J96.10 2747062 Bilateral pneumonia 4076 66476 J18.9 591707416 TABBY IN [facility] UGMENTIN AND PREDNISONE NOW dooing great. Post-disch arge follow-up 972613863 Z09 [id number] med records reviewed and meds reconciled . [id number] Ty Gottlieb MD [facility] ([facility]) [address] [place] [address] [phone] 5 03/08/2025 12:13:40 03/08/2025 16:05:03 Need for personal care assistance [id number] 4336842 Z74.1 [id number] Lives in senior living 16 1623945 Z78.9 1459892 Essential hypertension 41164417 I10 Chronic sy stolic heart failure 990516151 I50.22 stable at present Chronic ob structive pulmonary disease 32911459 J44.9 Will check CXR due to left chest pain and recent hospitaliz ation from COPD/CHF exacerbati on. Pain of left calf 382614 1191 632042 M79.662 34406801 With edema and recent hospitaliz ation. WIll check venous doppler to ensure no DVT. [id number] NAZIA JHA PA-C [facility] ([facility]) [address] [place] [address] [phone] 5 03/15/2025 10:55:06 03/21/2025 11:39:57 Moderate chronic obstructive pulmonary disease 889177789 J44.9 [id number] D/C YULPERI (not covered by insurance) START SPIRIVA 1 PUFFQD Generalized edema 189636 008 R60.1 65964 INCREASSE LASIX 40MG BID [id number] Ty Gottlieb MD [facility] ([facility]) [address] [place] [address] [phone] 5 05/17/2025 09:05:03 05/17/2025 12:36:58 Need for personal care assistance [phone] 5409890 Z74.1 [id number] Lives in senior living 16 1922704 Z78.9 9317625 Colitis 29289001 K52.9 982012 continue antibiotic s till gone. Will get reevaluati on by surgeon in 6 weeks. Anemia due to blood loss 396914629 D50.0 987774 will recheck CBC to monitor. She has had Elialie held pending reevaluati on of hgb. Essential hypertension 40939344 I10 Chronic sy stolic heart failure 691838179 I50.22 stable at present Type 2 [place] betes mellitus 06681449 E11.69 Severe obesity 598904089 1 9104 E66.01 Asthenia 68341990 R53.1 34050 Will try some PT for strengthen ing [...] Diggs Member ID Guarantor Name 05/17/2025 [place] [facility] (INSTITUTIONA L) Lauren Jose [id number] Lauren Jose 05/24/2025 1 [facility] (MEDICARE REPLACEMENT/A DVANTAGE - PPO) [id number] Lauren Jose [id number] Lauren Jose 05/17/2025 2 [place] Lauren Jose [id number] Lauren Jose Notes Date Note Type Note [...] states she feels great. Ty Gottlieb MD [address] [place] [address], [phone], [facility] 02/27/2025 09:30:17 5 text/html Patient complains of some left upper chest wall pain worse with cough. She was recently hospitilized with bronchitis/COPD exacerbation. She also complains of some swelling and pain in left lower leg. No increased dyspnea at this time. Ty Gottlieb MD [address] [place] [address], [phone], [facility] 03/08/2025 15:00:09 5 text/html COPDReported by PatientHPI:For onset/timing, patient reportsmultiple times per day. For duration, patient reportschronicandconst ant. For severity, patient reportsmoderate. For alleviating factors, patient reportsrelieved with restandrelieved with oxygen. increase in her edema and 10 lb wt gain since she has been back from the hospital 3 weeks ago.More SOB and wheezing, pulmonary congestion Ty Gottlieb MD [address] [place] [address], [phone], [facility] 03/17/2025 15:18:41 5 text/html Recent treatment for colitis or diverticulitis with acute blood loss anemia also. She was admitted to the hospital and discharged with antibiotics. She is feeling better but still some pain. She would like to be able to walk more as she has some swelling. Ty Gottlieb MD [address] [place] [address], [phone], [facility] 05/17/2025 12:02:46 5 text/html AnemiaReported by PatientHPIFor context, patient reportsprevious hemoglobin:andprevious hematocrit:. For duration, patient reportsconstant. For timing, patient reportsgradual. Not Available Not Available Not Available OBGyn Episode No OBEpisode recorded.
[2025-05-30] MEDS: ferrous sulfate EC 325 mg Tablet PO (18:22)
[2025-05-30] MEDS: insulin glargine 100 units/1 mL 12 UNIT SUBCUT (21:41)
[2025-05-31] MEDS: pantoprazole 40 mg SDV IVP (00:18)
[2025-05-31 01:47] VITALS: PULSE 94; RESP 20; O2SAT 95
[2025-05-31 03:28] VITALS: BP 162/112; PULSE 100; RESP 22; TEMP 36.5; O2SAT 93
[2025-05-31 04:06] LABS: Hematocrit 33.9 % (36-47); Hemoglobin 9.50 g/dL (11.27-16.99); Mean Corpuscular HGB Conc 28.0 g/dL (30-55); Mean Corpuscular Hemoglobin 22.2 pg (27-33); Mean Corpuscular Volume 79.4 fl (85-98); Nucleated Red Blood Cells % 0 %; Platelet Count 473 10^3/cmm (157-399); Red Blood Count 4.27 10^6/uL (3.85-5.65); White Blood Count 6.20 10^3/uL (3.29-11.43)
[2025-05-31] MEDS: ferrous sulfate EC 325 mg Tablet PO (04:36)
[2025-05-31 04:37] LABS: Anion Gap 16.4 (5-19); Blood Urea Nitrogen 23 mg/dL (8-23); Calcium 10.1 mg/dL (8.5-10.5); Carbon Dioxide 33 mmol/L (22-29); Chloride 96 mmol/L (98-107); Creatinine Clr Calc Pharmacy 94.0388; Glucose 167 mg/dL (65-115); Osmolality Calculated 299 mOsm/kg (285-295); Potassium 4.4 mmol/L (3.5-5.1); Sodium 141 mmol/L (136-145)
[2025-05-31] MEDS: methylPREDNISolone sod succ 40 mg/mL INJ 20 MG IVP (04:37)
[2025-05-31 05:22] VITALS: BMI 46.7
[2025-05-31 07:34] VITALS: BP 148/78; PULSE 94; RESP 20; TEMP 36.6; O2SAT 94
[2025-05-31 08:03] VITALS: PULSE 106; RESP 22; O2SAT 95
--- NOTE | 2025-05-31 09:40 | PM.DCS ---
Documented by User: Sergio Casiano KALYN STDANGELA 05/31/25 11:06 Discharge Providers Date of Admission: 05/30/25 12:04 Date of Discharge: May 31, 2025 Attending Provider at Admission: Gentry Syed Attending Provider at Discharge: Gentry Syed Primary Care Provider: Nazia Jha Diagnoses at Discharge Discharge Diagnosis 1. Acute on chronic respiratory failure with hypoxia and hypercapnia: Reason for Visit Reason for Visit: afib, weakness Hospital Course Hospital Course Patient is a 79F with history of congestive heart failure and Takotsubo cardiomyopathy, anemia, heart block, atrial fibrillation no longer on anticoagulation due to acute blood loss anemia, recent admission for diverticulitis (pending surgical assessment with colonoscopy after recover), cerebrovascular accident, gastroesophageal reflux disease, and chronic obstructive pulmonary disease with baseline 2-3L O2 NC. She was [place] [facility] [place] due to generalized weakness and noted to be in atrial fibrillation rapid ventricular response that resolved to below 100 bpm without intervention. She was evaluated and put on BIPAP support with FiO2 35%. Patient was noted to be mildly confused and somnolent. Patient was admitted for acute on chronic respiratory failure with hypoxia and hypercapnia secondary to severe COPD exacerbation and hypercapnic encephalopathy likely complicated by underlying obesity hypoventilation syndrome and possibly pulmonary hypertension. Initial arterial blood gas (ABG) drawn showed mild respiratory acidosis with hypercapnia and hypoxia. Patient was switched to AVAPS after initial worsening respiratory failure after repeat ABG was drawn. 3rd ABG drawn showed good response to treatment. Reviewed CBC, D-dimer, CMP, troponins, procalcitonin, CRP, respiratory viral panel, UA, CXR, CT angio, ECG, and duplex US. Patient was given low dose IV methylprednisolone to help with COPD exacerbation with PPI coverage. While inpatient, heparin prophylaxis was given for suspected pulmonary embolism. Hemoglobin dropped from 8.3-7.0 after administration and heparin was held. 1 unit of leukoreduced packed red blood cells was ordered and held. Unit was transfused at 1800 on 05/30. Patient was weaned off BiPAP at 2318 on 05/30 to 3L nasal cannula. She was assessed as stable morning of 05/31 with good response to treatment. Patient to be discharged to [facility] [place] with orders to follow-up with primary care physician for hemoglobin and blood counts. Please determine possibility of restarting low-dose anticoagulation for stroke risk with atrial fibrillation. Patient also will follow-up with general surgery for colonoscopy in 3 weeks per their recent admission for diverticulitis. Sergio Casiano, MS3 Patient seen and examined independently and findings conferred with medical student and the rest of care team in [facility] including nursing, CM and RT. After initial presentation with acute on chronic respiratory failure with hypoxia and hypercapnia, condition improved with AVAPS support, corticosteroid, breathing treatment. Mental status improved with improvement in hypercapnia and respiratory acidosis. Any medication like tramadol and antihistamine were held off. She was not found to be in need of antibiotic at current time. Respiratory failure resolved, she weaned off NIPPV to low flow NC and remains awake, alert and feeling better. CTA and venous duplex without VTE. SC heparin was trialed initially, but with Hb decrease to 7 on recheck was held. She received RBC transfusion with response in hemoglobin up to 9.5, wich is higher than expected as discussed with her daugher. She is to follow up from last hospitalization with surgery after last admit after diverticulitis and acute blood loss anemia for endoscopy. Please reassess recovery from COPD exacerbation. Avoid hyperoxia, target O2 sat 88-92% as also discussed with her daughter. Please reassess blood counts in 2-3 days and reassess if stable consider if may be a candidate for trial of anticoagulation or other options for stroke risk prophylaxis with AFib. Gentry Syed MD Physical Exam Const: COMMON NORMALS: patient oriented x3 and alert Resp: COMMON NORMALS: clear to auscultation bilaterally AUSCULTATION: clear to auscultation bilaterally Cardio: COMMON NORMALS: regular rate, S1 normal heart sound present and S2 normal heart sound present RATE: regular rate HEART SOUNDS: S1 normal heart sound present and S2 normal heart sound present GI: AUSCULTATION: Yes normoactive bowel sounds PALPATION: Yes Tenderness to palpation present (GI) Details: LLQ, RLQ, LUQ and RUQ Extremity: RIGHT LOWER EXTREMITY: Yes foot & digits (tenderness) Right ankle: Yes palpation LEFT LOWER EXTREMITY: Yes ankle joint (tenderness) Left ankle: Yes palpation Neuro: COMMON NORMALS: patient oriented x3 SENSORIUM/ORIENTATION: Yes alert Skin: COMMON NORMALS: no rashes or lesions noted GENERAL SKIN EXAM: no rashes or lesions noted Urinary Catheter Management: Dumont: Cath Placed During This Visit: yes Reason for Continuing Indwelling Catheter: Accurate Measurement of Urinary Output in Critically Ill Patients Urinary Catheter Date of Insertion: 05/30/25 Urinary Catheter Time of Insertion: 16:54 Discharge Data Studies Completed and Pending Completed Studies During Hospitalization Category Date Time Status CTA chest [CT angio chest PE protcl [id number]] Routine Cat Scan 05/30/25 11:35 Completed XR chest 1V portable [id number] Stat Exams 05/30/25 06:59 [place] [id number] Routine Ultrasound 05/30/25 13:35 Completed Pending at discharge Category Date Time Status Basic Metabolic Panel AM LABS Lab 06/01/25 04:00 Ordered Basic Metabolic Panel AM LABS Lab 06/02/25 04:00 Ordered Complete Blood Count w/Auto AM LABS Lab 06/01/25 04:00 Ordered Complete Blood Count w/Auto AM LABS Lab 06/02/25 04:00 Ordered Radiology Impressions Chest X-Ray 05/30/25 06:59 IMPRESSION: 1. Cardiac enlargement unchanged. No acute process identified. Chest CTA 05/30/25 11:35 IMPRESSION: 1. No pulmonary embolism. 2. Dilated pulmonary artery. 3. Moderately enlarged heart. 4. Mild pulmonary edema. 5. Very small bilateral pleural effusions with compressive atelectasis. 6. Prior cholecystectomy. 7. Stable LEFT adrenal adenoma. Venous Duplex 05/30/25 13:35 IMPRESSION: No evidence of deep vein thrombosis. Laboratory Results WBC 6.20 10^3/uL (3.29-11.43) 05/31/25 03:20 RBC 4.27 10^6/uL (3.85-5.65) 05/31/25 03:20 Hgb 9.50 g/dL (11.27-16.99) L D 05/31/25 03:20 Hct 33.9 % (36-47) L 05/31/25 03:20 MCV 79.4 fl (85-98) L 05/31/25 03:20 MCH 22.2 pg (27-33) L 05/31/25 03:20 MCHC 28.0 g/dL (30-55) L 05/31/25 03:20 RDW 21.9 % (12.1-15.1) H 05/31/25 03:20 Plt Count 473 10^3/cmm (157-399) H 05/31/25 03:20 MPV 8.9 fL (7.4-10.4) 05/31/25 03:20 Neut % (Auto) 90.5 % 05/31/25 03:20 Lymph % (Auto) 7.9 % 05/31/25 03:20 [place] % (Auto) 0.3 % 05/31/25 03:20 Eos % (Auto) 0.0 % 05/31/25 03:20 Baso % (Auto) 0.2 % 05/31/25 03:20 Neut # (Auto) 5.61 10^3/uL (1.8-7.7) 05/31/25 03:20 Lymph # (Auto) 0.5 10^3/uL (0.8-4.8) L 05/31/25 03:20 [place] # (Auto) 0.0 10^3/uL (0.2-0.9) L 05/31/25 03:20 Eos # (Auto) 0.0 10^3/uL (0.0-0.8) 05/31/25 03:20 Baso # (Auto) 0.0 10^3/uL (0.0-0.1) 05/31/25 03:20 Nucleated RBC % (auto) 0 % 05/31/25 03:20 Nucleated RBCs # 0.0 /100WBC 05/31/25 03:20 D-Dimer 1.04 ug/mLFEU (0-0.59) H 05/30/25 06:29 Specimen Type Arterial 05/30/25 14:26 Sample Site Radial, right 05/30/25 14:26 ABG pH 7.41 (7.35-7.45) 05/30/25 14:26 ABG pCO2 63.1 mmHg (35-45) H* 05/30/25 14:26 ABG pO2 82.0 mmHg (80.0-100.0) 05/30/25 14:26 ABG PO2/FiO2 Ratio 273 05/30/25 14:26 ABG HCO3 39.5 mmol/L (22-26) H 05/30/25 14:26 ABG O2 Saturation 91.8 05/30/25 10:48 ABG Base Excess 13.0 mmol/L (-2.0-2.0) H 05/30/25 14:26 Cornel Test Pos 05/30/25 14:26 A-a O2 Gradient 12.8 mmHg (5-10) H 05/30/25 10:48 Hematocrit 25.9 % (37-47) L 05/30/25 14:26 Hgb O2 Saturation 89.8 % (95-100) L 05/30/25 10:48 Carboxyhemoglobin 1.8 %THgb (0.4-20.1) 05/30/25 10:48 Methemoglobin 0.3 % (0.4-1.5) L 05/30/25 10:48 Total Hemoglobin 8.4 g/dL (12-16) L 05/30/25 10:48 Sodium 146.0 mmol/L (131-143) H 05/30/25 10:48 Potassium 4.8 mmol/L (3.5-5.0) 05/30/25 10:48 Glucose 118.0 mg/dL (70-115) H 05/30/25 10:48 Ionized Calcium 1.3 mmol/L (1.1-1.4) 05/30/25 10:48 O2 Delivery Device Bipap 05/30/25 14:26 O2 Liters/Min 3.0 % 05/30/25 09:47 FiO2 30.0 % 05/30/25 14:26 PEEP 10.0 cmH20 05/30/25 14:26 Face Painter ID glc 05/30/25 14:26 Sodium 141 mmol/L (136-145) 05/31/25 03:20 Potassium 4.4 mmol/L (3.5-5.1) 05/31/25 03:20 Chloride 96 mmol/L (98-107) L 05/31/25 03:20 Carbon Dioxide 33 mmol/L (22-29) H 05/31/25 03:20 Anion Gap 16.4 (5-19) 05/31/25 03:20 BUN 23 mg/dL (8-23) 05/31/25 03:20 Creatinine 0.7 mg/dL (0.5-0.9) 05/31/25 03:20 GFR Calculation Not Reportable 05/31/25 03:20 Glucose 167 mg/dL (65-115) H 05/31/25 03:20 POC Glucose 219 mg/dL (70-110) H 05/31/25 06:14 Calculated Osmolality 299 mOsm/kg (285-295) H 05/31/25 03:20 Calcium 10.1 mg/dL (8.5-10.5) 05/31/25 03:20 Total Bilirubin 0.6 mg/dL (0.15-1.2) 05/30/25 06:29 AST 7 U/L (0-32) 05/30/25 06: ALT 8 U/L (0-33) 05/30/25 06:29 Alkaline Phosphatase 103 U/L (35-105) 05/30/25 06:29 Troponin T Baseline 28 ng/L (0-10) H 05/30/25 06:29 Troponin T 120 Minute 25.06 ng/L (0-10) H 05/30/25 08:13 Delta Troponin T -2.94 ABS# (0-10) L 05/30/25 08:13 Troponin T Hi Sens 6Hr 21.06 ng/L (0-10) H 05/30/25 13:14 Troponin T Hi Sens 6Hr Delta -6.94 ng/L (0-12) L 05/30/25 13:14 C-Reactive Protein 32.9 mg/L (0.0-4.9) H 05/30/25 13:14 Total Protein 7.3 g/dL (6.6-8.7) 05/30/25 06: Albumin 4.1 g/dL (3.5-5.2) 05/30/25 06: Globulin 3.2 g/dL (1.3-4.6) 05/30/25 06:29 Procalcitonin 0.09 ng/mL (0-0.5) 05/30/25 13:14 TSH 2.89 uIU/mL (0.27-4.20) 05/30/25 06:29 Urine Color Yellow (Yellow) 05/30/25 07:35 Urine Appearance Clear (CLEAR) 05/30/25 07:35 Urine pH 5.0 (5-7) 05/30/25 07:35 Ur Specific [place] 1.016 (1.005-1.030) 05/30/25 07:35 Urine Protein Trace (Negative) A 05/30/25 07:35 Urine Glucose (UA) Negative (Normal) 05/30/25 07:35 Urine Ketones Negative (Negative) 05/30/25 07:35 Urine Blood Negative (Negative) 05/30/25 07:35 Urine Nitrate Negative (Negative) 05/30/25 07:35 Urine Bilirubin Negative (Negative) 05/30/25 07:35 Urine Urobilinogen 1.0 mg/dL (Negative) 05/30/25 07:35 Ur Leukocyte Esterase Negative (Negative) 05/30/25 07:35 Urine RBC 0-2 /hpf (0-2) 05/30/25 07:35 Urine WBC 0-5 /hpf (0-5) 05/30/25 07:35 Ur Squamous Epith Cells 0-5 /hpf (0-5) 05/30/25 07:35 Amorphous Sediment Not Reportable 05/30/25 07:35 Urine Bacteria None seen /hpf (NONE) 05/30/25 07:35 Hyaline Casts 9.91 /lpf 05/30/25 07:35 Influenza A (PCR) Negative (Negative) 05/30/25 14:15 Influenza Type B (PCR) Negative (Negative) 05/30/25 14:15 RSV (PCR) Negative (Negative) 05/30/25 14:15 SARS-CoV-2 (PCR) Negative (Negative) 05/30/25 14:15 Blood Type A Negative 05/30/25 14:53 Rho(D) Type Rh negative 05/30/25 14:53 Antibody Screen Negative 05/30/25 14:53 Crossmatch See Detail 05/30/25 14:53 Vitals Last Vital Signs Temp 97.8 F 05/31/25 07:34 Pulse 106 H 05/31/25 08:03 Resp 22 H 05/31/25 08:03 BP 148/78 05/31/25 07:34 Pulse Ox 95 05/31/25 08:03 O2 Del Method Nasal Cannula 05/31/25 08:03 O2 Flow Rate 2 05/31/25 08:03 FiO2 30 05/30/25 23:46 Discharge Plan Discharge Patient Disposition: Xfer SNF Condition: Stable Prescriptions: New prednisone 20 mg tablet 20 mg PO DAILY 4 Days Qty: 4 0RF Continued atorvastatin [Lipitor] 20 mg tablet 20 mg PO BEDTIME albuterol sulfate 90 mcg/actuation HFA aerosol inhaler 1 puff inhalation Q4H PRN (Reason: Wheezing) dicyclomine 20 mg tablet 20 mg PO Q8H PRN (Reason: Diarrhea) tizanidine 2 mg capsule 2 mg PO Q8H PRN (Reason: Muscle Spasm) acetaminophen [Tylenol] 325 mg Tablet 650 mg PO QID buspirone 10 mg tablet 10 mg PO BID albuterol sulfate 2.5 mg /3 mL (0.083 %) solution for nebulization 2.5 mg inhalation Q12H PRN (Reason: Wheezing) arformoterol 15 mcg/2 mL solution for nebulization 15 mcg INHALATION BID budesonide 1 mg/2 mL suspension for nebulization 1 mg inhalation BID Trulicity 1.5 mg/0.5 mL pen injector 1.5 mg SUBCUT Q7D Rx Instructions: lisinopril 20 mg tablet 10 mg PO DAILY Qty: 30 0RF pantoprazole [Protonix] 40 mg tablet,delayed release (DR/EC) 40 mg PO DAILY Qty: 30 0RF insulin glargine [Lantus U-100 Insulin] 100 unit/mL Solution 20 unit SUBCUT BEDTIME magnesium oxide [MagOx] 400 mg (241.3 mg magnesium) Tablet 200 mg PO BID duloxetine 60 mg capsule,delayed release(DR/EC) 60 mg PO DAILY Spiriva Respimat 2.5 mcg/actuation mist 1 inh INHALATION DAILY Biofreeze (menthol) 4 % Gel 1 applic TOPICAL Q8H PRN (Reason: Pain) carvedilol 6.25 mg tablet 6.5 mg PO BID levothyroxine 50 mcg tablet 50 mcg PO QAM tramadol 50 mg tablet 50 mg PO Q4H PRN (Reason: Pain) ascorbic acid (vitamin C) [Vitamin C] 500 mg Tablet 500 mg PO DAILY ferrous sulfate 325 mg (65 mg iron) Tablet 325 mg PO BID zinc oxide 20 % Paste See Rx Instructions .ROUTE .COMPLEX Rx Instructions: Apply to affected areas topically every 8 hours as needed for prophylaxis. May keep at bedside. furosemide 40 mg tablet 40 mg PO BID hydralazine 50 mg tablet 50 mg PO QID isosorbide mononitrate 30 mg tablet extended release 24 hr 30 mg PO DAILY magnesium hydroxide [Milk of Magnesia] 400 mg/5 mL Suspension 30 ml PO DAILY PRN (Reason: Constipation) bisacodyl 10 mg Suppository 10 mg ND DAILY PRN (Reason: Constipation) Fleet Enema 19-7 gram/118 mL Enema 118 ml ND DAILY PRN (Reason: Constipation) amlodipine 10 mg tablet 10 mg PO DAILY Qty: 60 4RF guaifenesin 100 mg/5 mL Liquid 200 mg PO Q4H PRN (Reason: Cough) ondansetron 4 mg Tablet,Disintegrating 4 mg PO Q4H PRN (Reason: Nausea) loratadine 10 mg Tablet 10 mg PO DAILY Discharge Order = DC NOW: Discharge Order (Routine); Ordered 05/31/25 Ordered By: Gentry Syed Referrals: Nazia Jha PA [Primary Care Provider, [facility]] - 4-7 days Discharge Diet: Cardiac Discharge Activity: Increase activity as tolerated, Oxygen as instructed and Cpap/Bipap as instructed Patient Instructions: Prednisone (By mouth), Acute Respiratory Failure (GEN), Opioid Safety, Patient Portal & [facility] Instructions Activity Restrictions/Additional Instructions: Continue 2L NC, target 88-92% sat. Avoid hyperoxia. Complete brief prednisone course for COPD. Follow up with primary provider for reassessment. Follow up blood counts for anemia. Continue arrangements for follow up with surgery as previously for endoscopy after recent admission with blood loss anemia and diverticulitis. Please follow up hemoglobin and reassess possiblity of starting lower dose anticoagulation vs aspirin for stroke prophylaxis with AFib. Discharge Attestations Status at Discharge: Cognitive status at discharge: cognitively intact, Behavioral status at discharge: cooperative, Coding Level of Care Code 43216 Diagnoses Acute on chronic respiratory failure with hypoxia and hypercapnia J96.21; J96.22 Documented by User: Gentry Syed MD 05/31/25 11:31 Diagnoses at Discharge Discharge Diagnosis 1. Acute on chronic respiratory failure with hypoxia and hypercapnia: Reason for Visit Reason for Visit: afib, weakness Hospital Course Hospital Course Patient is a 79F with history of congestive heart failure and Takotsubo cardiomyopathy, anemia, heart block, atrial fibrillation no longer on anticoagulation due to acute blood loss anemia, recent admission for diverticulitis (pending surgical assessment with colonoscopy after recover), cerebrovascular accident, gastroesophageal reflux disease, and chronic obstructive pulmonary disease with baseline 2-3L O2 NC. She was brought [place] [facility] [place] due to generalized weakness and noted to be in atrial fibrillation rapid ventricular response that resolved to below 100 bpm without intervention. She was evaluated and put on BIPAP support with FiO2 35%. Patient was noted to be mildly confused and somnolent. Patient was admitted for acute on chronic respiratory failure with hypoxia and hypercapnia secondary to severe COPD exacerbation and hypercapnic encephalopathy likely complicated by underlying obesity hypoventilation syndrome and possibly pulmonary hypertension. Initial arterial blood gas (ABG) drawn showed mild respiratory acidosis with hypercapnia and hypoxia. Patient was switched to AVAPS after initial worsening respiratory failure after repeat ABG was drawn. 3rd ABG drawn showed good response to treatment. Reviewed CBC, D-dimer, CMP, troponins, procalcitonin, CRP, respiratory viral panel, UA, CXR, CT angio, ECG, and duplex US. Patient was given low dose IV methylprednisolone to help with COPD exacerbation with PPI coverage. While inpatient, heparin prophylaxis was given for suspected pulmonary embolism. Hemoglobin dropped from 8.3-7.0 after administration and heparin was held. 1 unit of leukoreduced packed red blood cells was ordered and held. Unit was transfused at 1800 on 05/30. Patient was weaned off BiPAP at 2318 on 05/30 to 3L nasal cannula. She was assessed as stable morning of 05/31 with good response to treatment. Patient to be discharged to [facility] [place] with orders to follow-up with primary care physician for hemoglobin and blood counts. Please determine possibility of restarting low-dose anticoagulation for stroke risk with atrial fibrillation. Patient also will follow-up with general surgery for colonoscopy in 3 weeks per their recent admission for diverticulitis. Sergio Casiano, MS3 Patient seen and examined independently and findings conferred with medical student and the rest of care team in [facility] including nursing, CM and RT. After initial presentation with acute on chronic respiratory failure with hypoxia and hypercapnia, condition improved with AVAPS support, corticosteroid, breathing treatment. Mental status improved with improvement in hypercapnia and respiratory acidosis. Any medication like tramadol and antihistamine were held off. She was not found to be in need of antibiotic at current time. Respiratory failure resolved, she weaned off NIPPV to low flow NC and remains awake, alert and feeling better. CTA and venous duplex without VTE. SC heparin was trialed initially, but with Hb decrease to 7 on recheck was held. She received RBC transfusion with response in hemoglobin up to 9.5, wich is higher than expected as discussed with her daugher. She is to follow up from last hospitalization with surgery after last admit after diverticulitis and acute blood loss anemia for endoscopy. Please reassess recovery from COPD exacerbation. Avoid hyperoxia, target O2 sat 88-92% as also discussed with her daughter. Please reassess blood counts in 2-3 days and reassess if stable consider if may be a candidate for trial of anticoagulation or other options for stroke risk prophylaxis with AFib. Gentry Syed MD Physical Exam Extremity: GENERAL: No edema Urinary Catheter Management: Dumont: Cath Placed During This Visit: yes Discharge Plan Discharge Patient Disposition: er SNF Condition: Stable Prescriptions: New prednisone 20 mg tablet 20 mg PO DAILY 4 Days Qty: 4 0RF Continued atorvastatin [Lipitor] 20 mg tablet 20 mg PO BEDTIME albuterol sulfate 90 mcg/actuation HFA aerosol inhaler 1 puff inhalation Q4H PRN (Reason: Wheezing) dicyclomine 20 mg tablet 20 mg PO Q8H PRN (Reason: Diarrhea) tizanidine 2 mg capsule 2 mg PO Q8H PRN (Reason: Muscle Spasm) acetaminophen [Tylenol] 325 mg Tablet 650 mg PO QID buspirone 10 mg tablet 10 mg PO BID albuterol sulfate 2.5 mg /3 mL (0.083 %) solution for nebulization 2.5 mg inhalation Q12H PRN (Reason: Wheezing) arformoterol 15 mcg/2 mL solution for nebulization 15 mcg INHALATION BID budesonide 1 mg/2 mL suspension for nebulization 1 mg inhalation BID Trulicity 1.5 mg/0.5 mL pen injector 1.5 mg SUBCUT Q7D Rx Instructions: lisinopril 20 mg tablet 10 mg PO DAILY Qty: 30 0RF pantoprazole [Protonix] 40 mg tablet,delayed release (DR/EC) 40 mg PO DAILY Qty: 30 0RF insulin glargine [Lantus U-100 Insulin] 100 unit/mL Solution 20 unit SUBCUT BEDTIME magnesium oxide [MagOx] 400 mg (241.3 mg magnesium) Tablet 200 mg PO BID duloxetine 60 mg capsule,delayed release(DR/EC) 60 mg PO DAILY Spiriva Respimat 2.5 mcg/actuation mist 1 inh INHALATION DAILY Biofreeze (menthol) 4 % Gel 1 applic TOPICAL Q8H PRN (Reason: Pain) carvedilol 6.25 mg tablet 6.5 mg PO BID levothyroxine 50 mcg tablet 50 mcg PO QAM tramadol 50 mg tablet 50 mg PO Q4H PRN (Reason: Pain) ascorbic acid (vitamin C) [Vitamin C] 500 mg Tablet 500 mg PO DAILY ferrous sulfate 325 mg (65 mg iron) Tablet 325 mg PO BID zinc oxide 20 % Paste See Rx Instructions .ROUTE .COMPLEX Rx Instructions: Apply to affected areas topically every 8 hours as needed for prophylaxis. May keep at bedside. furosemide 40 mg tablet 40 mg PO BID hydralazine 50 mg tablet 50 mg PO QID isosorbide mononitrate 30 mg tablet extended release 24 hr 30 mg PO DAILY magnesium hydroxide [Milk of Magnesia] 400 mg/5 mL Suspension 30 ml PO DAILY PRN (Reason: Constipation) bisacodyl 10 mg Suppository 10 mg ND DAILY PRN (Reason: Constipation) Fleet Enema 19-7 gram/118 mL Enema 118 ml ND DAILY PRN (Reason: Constipation) amlodipine 10 mg tablet 10 mg PO DAILY Qty: 60 4RF guaifenesin 100 mg/5 mL Liquid 200 mg PO Q4H PRN (Reason: Cough) ondansetron 4 mg Tablet,Disintegrating 4 mg PO Q4H PRN (Reason: Nausea) loratadine 10 mg Tablet 10 mg PO DAILY Discharge Order = DC NOW: Discharge Order (Routine); Ordered 05/31/25 Ordered By: Gentry Syed Referrals: Nazia Jha PA [Primary Care Provider, [facility]] - 4-7 days Discharge Diet: Cardiac Discharge Activity: Increase activity as tolerated, Oxygen as instructed and Cpap/Bipap as instructed Patient Instructions: Prednisone (By mouth), Acute Respiratory Failure (GEN), Opioid Safety, Patient Portal & [place] Instructions Activity Restrictions/Additional Instructions: Continue 2L NC, target 88-92% sat. Avoid hyperoxia. Complete brief prednisone course for COPD. Follow up with primary provider for reassessment. Follow up blood counts for anemia. Continue arrangements for follow up with surgery as previously for endoscopy after recent admission with blood loss anemia and diverticulitis. Please follow up hemoglobin and reassess possiblity of starting lower dose anticoagulation vs aspirin for stroke prophylaxis with AFib. Discharge Attestations Time Spent in Discharge Care*: greater than 30 min Quality Metrics Clinical Quality Measures [ No reported AMI, CVA or VTE this stay] Coding Level of Care Code 51063 Total time (in minutes) for Discharge: 40 Diagnoses Acute on chronic respiratory failure with hypoxia and hypercapnia J96.21; J96.22
--- NOTE | 2025-05-31 09:54 | PC.CHAP ---
Pastoral Care Encounter/Spiritual Assessment Type of Contact [] Declined certified income tax preparer visit [] Patient/Family/Request visit [] Outpatient visit [] Follow-up visit [] Physician referral [] Code/Alert [x] Routine visit [] Staff referral [] Actively dying [] Patient sleeping [] Family support [] [] Out of room [] Palliative care [] [] Receiving care in room [] Pre-surgical visit [] Trauma [] Long length of stay [] ICU visit [] Other: Relational/Emotional Strength [x] Patient feels connected with others/family/visitors/staff [] Distress [] Loneliness/isolation [] Abandonment Spirituality of Patient [x] Person of Maria E [] Attends Gnosticist of their Maria E [x] Believes in Prayer [] Reads Bible or Buddhist materials [] There are Spiritual issues to be addressed Promotional Advertising Assistant Interventions [x] Prayer [x] Active listening [] Non-anxious presence [x] Spiritual/emotional support [] Crisis/trauma care [] Spiritual counseling [] Bereavement support [] Provided bereavement packet [] Provided Bible/devotional materials [] Provided toy/stuffed animal, coloring book to patient or family member [] Provided Communion [] Anointing/[place] [] Salvation [x] Completed spiritual assessment [] Other: Impact on Illness or Injury [] Angry [] Fearful [] Anxious [] Often cries [] Exhaustion [] Unable to work [] Unable to attend congregation [] Unable to walk/stand [] Unable to read [] Unable to drive [] Unable to eat/drink [] Unable to sleep [] Unable to be with family [] Patient intubated [] Other: Summary Time spent with patient 5 min
--- NOTE | 2025-05-31 11:51 | PC.NURSE ---
report called to ede hanks at [id number].
[2025-05-31 12:00] VITALS: BP 140/83; PULSE 82; RESP 26; O2SAT 93
[2025-05-31 13:01] VITALS: BP 124/78; PULSE 94; RESP 20; TEMP 36.6; O2SAT 95
== END 2025-05-31 13:09 | disposition skilled nursing facility (03) | DRG 189 ==
LOC: ER 11:12 → CSU 12:10
PROVIDERS: Admitting Provider Internal Medicine; Emergency Provider Family Medicine; PCP Physician Assistant; Visit Provider Internal Medicine
DX: J96.22 Acute and chronic respiratory failure with hypercapnia (principal); G93.41 Metabolic encephalopathy; I50.22 Chronic systolic (congestive) heart failure; J44.1 Chronic obstructive pulmonary disease with (acute) exacerbation; E66.2 Morbid (severe) obesity with alveolar hypoventilation; Z68.42 Body mass index [BMI] 45.0-49.9, adult; J96.21 Acute and chronic respiratory failure with hypoxia; M79.672 Pain in left foot; I48.91 Unspecified atrial fibrillation; I11.0 Hypertensive heart disease with heart failure; D64.9 Anemia, unspecified; K21.9 Gastro-esophageal reflux disease without esophagitis; G89.29 Other chronic pain; E11.9 Type 2 diabetes mellitus without complications; F41.8 Other specified anxiety disorders; Z66 Do not resuscitate; I25.2 Old myocardial infarction; Z79.891 Long term (current) use of opiate analgesic; Z79.4 Long term (current) use of insulin; Z79.85 Long-term (current) use of injectable non-insulin antidiabetic drugs; Z99.81 Dependence on supplemental oxygen; Z86.73 Personal history of transient ischemic attack (TIA), and cerebral infarction without residual deficits; Z87.891 Personal history of nicotine dependence
CPT/HCPCS: 36415; 36416; 36430; 36600; 51702; 71045; 71275; 80048; 80051; 80053; 81001; 82330; 82803; 82805; 82962; 83605; 83690; 84145; 84443; 84484; 85018; 85025; 85378; 86140; 86850; 86900; 86920; 87637; 93005; 93970; 94640; 94660; 96372; 99284; J1644; J1815; J2470; J2919; J7626; J9999; P9016

== ENCOUNTER → 2025-06-08 09:31 | Outpatient (BNVA) | payer MEDICARE, MEDICAID, SELFPAY | PROVIDERS: PCP Physician Assistant; Visit Provider Student in an Organized Health Care Education/Training Program | DX: Z09 Encounter for follow-up examination after completed treatment for conditions other than malignant neoplasm (principal) | CPT/HCPCS: 99213 ==